=== PATIENT | female | born 1940 | race Caucasian/White ===

== ENCOUNTER → 2017-08-24 18:09 | Outpatient (CLI) | payer MEDICARE, SELFPAY | PROVIDERS: Family Provider Family Medicine; Visit Provider Urology | DX: R82.99 Other abnormal findings in urine (principal) | CPT/HCPCS: 87077; 87086; 87088; 87186 ==

== ENCOUNTER 2017-09-25 10:58 | Day surgery (SDC) | payer MEDICARE, SELFPAY ==
[2017-09-25 11:26] VITALS: BP 152/65; PULSE 74; RESP 16; TEMP 36.4; O2SAT 95; BMI 27.2
[2017-09-25] MEDS: Cefazolin 2 GM in 0.9% Normal Saline 100 ML IV (12:26)
[2017-09-25] MEDS: Lidocaine Jelly 2% 20 ML Syringe (URO-JET) 20 APPLIC (12:38)
--- NOTE | 2017-09-25 12:55 | PCM.DC.URO ---
Discharge Diet: Light diet - advance as tolerated Discharge Activity: Return to Normal Activity Call your doctor if your incision/area has: Continuous Slow Oozing Call your doctor if you observe: Fever of 101 or Higher Allergies/Adverse Reactions: Allergies lisinopril Allergy (Verified 09/18/17 10:10) Hives Sulfa (Sulfonamide Antibiotics) Allergy (Verified 09/18/17 10:10) Hives Medications to take at Discharge Acetaminophen [Tylenol Arthritis] 1,200 mg PO TID 05/01/16 Aspirin [Aspirin, Baby] 81 mg PO DAILY 05/01/16 Atorvastatin Calcium [Lipitor] 10 mg PO QHS 05/01/16 Clopidogrel Bisulfate [Plavix] 75 mg PO DAILY 05/01/16 amiodarone 200 mg tablet 200 mg PO QDAY 05/25/17 metoprolol tartrate 25 mg tablet 25 mg PO BID 05/25/17 Primary Care Physician: Brett Flores DO [Primary Care Provider] - Please Follow Up With: Simone Garcia MD When: call for an appt ion 6 weeks
--- NOTE | 2017-09-25 12:57 | PCM.OPRPT ---
Report of Operation Date of Procedure: 09/25/17 Pre-Operative Diagnosis: History of bilateral reflux seen hydronephrosis Post-Operative Diagnosis: Same Surgery/Procedure Performed:: Cystoscopy and bilateral retrograde pyelograms and bilateral stent changes Description of Surgical Findings:: 76-year-old female who has a history of hydronephrosis of both the left kidney and the right kidney her creatinine is has been relatively stable at the keep the walk keep watching it. She has had recurrent infections and also in the past had severe bladder and kidney infections for refluxing hydronephrosis she has a significant cystocele. I have offered her a referral for repair but she is refused referral and may consider having her see a local delivery associate see if this will help. 76-year-old female taken to the operating room after smooth induction of general anesthesia she was placed in dorsal lithotomy position the urethra and vaginal area were prepped and draped in usual sterile fashion. Went into the bladder with a 21 Sierra Leonean rigid cystourethroscope grabbed the existing stent from the right side pulled out the meatus advanced the wire up the stent over the wire I then advanced a Pollack catheter performed a retrograde pyelogram which demonstrated a dilated kidney. I then advanced a new stent over the wire into the kidney and then once a stent was in good position I cut the string and position the stent in good position. I then went to the left side grabbed the existing stent on the left side pulled out the meatus advanced a wire up the stent put a Pollack catheter over the wire up into the kidney and the left side contrast into the kidney which demonstrated hydronephrosis and then I advanced a stent up on the left side once stent was in good position pulled the wire and then position the stent between the bladder and the kidney there was a stent was positioned to remove the wire string off the stent. After performing bilateral retrogrades bilateral stent placement that I drain the bladder patient anesthetic was reversed taken back to PACU in good condition. She will see me back in about 6 weeks in the office given an appointment. Type of Anesthesia:: Local MAC Drains: stents - Admit VTE Documentation VTE Present on Admission: No VTE Mechan Device Prophylaxis: SCD's VTE Pharm Prophylaxis ordered?: No Reason prophylaxis not ordered:: Treatment Not Indicated
--- NOTE | 2017-09-25 13:00 | OP.PCM_ITS ---
Report of Operation Date of Procedure: 09/25/17 Pre-Operative Diagnosis: History of bilateral reflux seen hydronephrosis Post-Operative Diagnosis: Same Surgery/Procedure Performed:: Cystoscopy and bilateral retrograde pyelograms and bilateral stent changes Description of Surgical Findings:: 76-year-old female who has a history of hydronephrosis of both the left kidney and the right kidney her creatinine is has been relatively stable at the keep the walk keep watching it. She has had recurrent infections and also in the past had severe bladder and kidney infections for refluxing hydronephrosis she has a significant cystocele. I have offered her a referral for repair but she is refused referral and may consider having her see a local setter induction heating equipment see if this will help. 76-year-old female taken to the operating room after smooth induction of general anesthesia she was placed in dorsal lithotomy position the urethra and vaginal area were prepped and draped in usual sterile fashion. Went into the bladder with a 21 Swiss rigid cystourethroscope grabbed the existing stent from the right side pulled out the meatus advanced the wire up the stent over the wire I then advanced a Pollack catheter performed a retrograde pyelogram which demonstrated a dilated kidney. I then advanced a new stent over the wire into the kidney and then once a stent was in good position I cut the string and position the stent in good position. I then went to the left side grabbed the existing stent on the left side pulled out the meatus advanced a wire up the stent put a Pollack catheter over the wire up into the kidney and the left side contrast into the kidney which demonstrated hydronephrosis and then I advanced a stent up on the left side once stent was in good position pulled the wire and then position the stent between the bladder and the kidney there was a stent was positioned to remove the wire string off the stent. After performing bilateral retrogrades bilateral stent placement that I drain the bladder patient anesthetic was reversed taken back to PACU in good condition. She will see me back in about 6 weeks in the office given an appointment. Type of Anesthesia:: Local MAC Drains: stents - Admit VTE Documentation VTE Present on Admission: No VTE Mechan Device Prophylaxis: SCD's VTE Pharm Prophylaxis ordered?: No Reason prophylaxis not ordered:: Treatment Not Indicated
[2017-09-25 13:02] VITALS: BP 152/65; BP 158/79; PULSE 64; RESP 18; TEMP 36.2; O2SAT 100
[2017-09-25 13:05] VITALS: BP 152/65; BP 160/69; PULSE 62; RESP 18; O2SAT 97
[2017-09-25 13:10] VITALS: BP 152/65; BP 156/73; PULSE 60; RESP 18; O2SAT 96
[2017-09-25 13:15] VITALS: BP 152/65; BP 152/74; PULSE 58; RESP 18; TEMP 36.2; O2SAT 97
[2017-09-25 14:34] VITALS: BP 132/83; BP 152/65; PULSE 62; RESP 18; O2SAT 99
== END 2017-09-25 15:06 | disposition home or self-care (01) ==
LOC: SDC 10:58 → AC 11:00
PROVIDERS: Family Provider Family Medicine; PCP Family Medicine; Visit Provider Urology
PROC: (CPT 52005; principal; 2017-09-25 12:30)
DX: N13.39 Other hydronephrosis (principal); I25.10 Atherosclerotic heart disease of native coronary artery without angina pectoris; M19.90 Unspecified osteoarthritis, unspecified site; K21.9 Gastro-esophageal reflux disease without esophagitis; E78.00 Pure hypercholesterolemia, unspecified; I11.9 Hypertensive heart disease without heart failure; N19 Unspecified kidney failure; Z95.5 Presence of coronary angioplasty implant and graft; Z86.2 Personal history of diseases of the blood and blood-forming organs and certain disorders involving the immune mechanism; Z87.440 Personal history of urinary (tract) infections; Z79.82 Long term (current) use of aspirin; Z79.02 Long term (current) use of antithrombotics/antiplatelets; Z79.899 Other long term (current) drug therapy
CPT/HCPCS: 52005; 52332; 76000; J7120; C1769; C2617; J2405

== ENCOUNTER → 2017-11-05 09:14 | Outpatient (CLI) | payer MEDICARE, SELFPAY ==
[2017-11-05 09:35] LABS: Hematocrit 31.7 % (37-47); Hemoglobin 9.9 g/dl (12.0-15.0); Mean Corp Hgb Conc 31.2 g/gl (32-36); Mean Corpuscular Hgb 27.8 pg (27.0-32.0); Mean Platelet Vol. 8.4 fl (6.2-12.0); Platelet Count 374 K/mm3 (150-450); RBC Distribution Width CV 17.9 % (11.6-14.6); RBC Distribution Width SD 57.2 fl (35.1-43.9); Red Blood Count 3.56 M/mm3 (4.2-5.4); White Blood Count 10.4 K/mm3 (4.4-11.0)
[2017-11-05 09:36] LABS: Scan Indicated on CBC? Y/N NO
[2017-11-05 10:14] LABS: Anion Gap 8 (5-15); BUN 27 mg/dL (7-18); BUN/Creat Ratio 11.7 RATIO (10-20); Calcium,Total 9.9 mg/dL (8.5-10.1); Chloride 112 mmol/L (98-107); Creatinine, Serum 2.31 mg/dL (0.55-1.02); EST Glomerular Filtration Rate 22 mL/min (>60); Est Glom Filt Rate - Afr Amer 26 mL/min (>60); Glucose 92 mg/dL (74-106); Potassium 4.1 mmol/L (3.5-5.1); Sodium Level 140 mmol/L (136-145)
== END ==
PROVIDERS: Family Provider Family Medicine; PCP Family Medicine; Visit Provider Urology
DX: N13.30 Unspecified hydronephrosis (principal)
CPT/HCPCS: 36415; 80048; 85027

== ENCOUNTER → 2017-12-31 09:53 | Outpatient (CLI) | payer MEDICARE, SELFPAY ==
[2017-12-31 11:51] LABS: AST(SGOT) 10 U/L (15-37); Alanine Aminotransfer ALT/SGPT 12 U/L (13-56); Albumin, Serum 2.8 g/dL (3.2-5.0); Alkaline Phosphatase 119 U/L (45-117); Bilirubin, Direct 0.15 mg/dL (0.00-0.30); Cholesterol 117 mg/dL (200); Globulin 3.6 g/dL (2.2-4.2); High Density Lipoprotein 48 mg/dL; Protein, Total 6.4 g/dL (6.4-8.2); T4 Total, Thyroxin 8.9 ug/dL (4.8-13.9); Thyroid Stim Hormone (TSH) 9.22 uIU/mL (0.358-3.74); Triglycerides 116 mg/dL; Very Low Density Lipoprotein 23 mg/dL (5-40)
--- NOTE | 2017-12-31 12:28 | PFTCOMP ---
COMPLETE PULMONARY FUNCTION TEST INTERPRETATION Brief HPI: Patient is a 77 year old female, currently under the care of Sultana Lee, who presents to [facility] for complete pulmonary function tests secondary to diagnosis of high-risk med use. Respiratory therapist reports good effort and reproducible results. Interpretation: Forced expiration spirometry shows no large airways obstructive ventilatory defect with an FEV1 of 97% predicted. There is no significant bronchodilator response by ATS criteria. Spirograms are of good quality and plateau slowly, indicating slowly emptying areas of the lungs. The respiratory flow volume loop shows decreased expiratory flow rates at high lung volumes consistent with small airways obstruction. Lung volumes by body plethysmography show a normal total lung capacity at 4.53 L, 99% predicted. All other lung volumes are within normal limits. Diffusion capacity by carbon monoxide is decreased at 44% predicted. The airway resistance is elevated. No previous pulmonary function tests were available for review. Impression: Isolated reduction diffusing capacity consistent with possible pulmonary vascular disorder. Would recommend serial PFTs to monitor DLCO if high risk meds are continued.
--- NOTE | 2017-12-31 12:31 | PFTCOMP_ITS ---
COMPLETE PULMONARY FUNCTION TEST INTERPRETATION Brief HPI: Patient is a 77 year old female, currently under the care of Sultana Lee, who presents to [facility] for complete pulmonary function tests secondary to diagnosis of high-risk med use. Respiratory therapist reports good effort and reproducible results. Interpretation: Forced expiration spirometry shows no large airways obstructive ventilatory defect with an FEV1 of 97% predicted. There is no significant bronchodilator response by ATS criteria. Spirograms are of good quality and plateau slowly, indicating slowly emptying areas of the lungs. The respiratory flow volume loop shows decreased expiratory flow rates at high lung volumes consistent with small airways obstruction. Lung volumes by body plethysmography show a normal total lung capacity at 4.53 L , 99% predicted. All other lung volumes are within normal limits. Diffusion capacity by carbon monoxide is decreased at 44% predicted. The airway resistance is elevated. No previous pulmonary function tests were available for review. Impression: Isolated reduction diffusing capacity consistent with possible pulmonary vascular disorder. Would recommend serial PFTs to monitor DLCO if high risk meds are continued.
== END ==
PROVIDERS: Family Provider Family Medicine; PCP Family Medicine; Visit Provider Physician Assistant Medical
DX: I10 Essential (primary) hypertension (principal); I25.10 Atherosclerotic heart disease of native coronary artery without angina pectoris; E78.5 Hyperlipidemia, unspecified; I48.91 Unspecified atrial fibrillation
CPT/HCPCS: 36415; 80061; 80076; 84436; 84443; 94060; 94726; 94729

== ENCOUNTER → 2018-01-29 10:28 | Outpatient (CLI) | payer MEDICARE, SELFPAY ==
[2018-01-29 11:57] LABS: T4 Total, Thyroxin 11.8 ug/dL (4.8-13.9); Thyroid Stim Hormone (TSH) 2.07 uIU/mL (0.358-3.74)
== END ==
PROVIDERS: Physician Assistant Medical; Family Provider Family Medicine; PCP Family Medicine; Visit Provider Urology
DX: E03.9 Hypothyroidism, unspecified (principal); N39.0 Urinary tract infection, site not specified
CPT/HCPCS: 36415; 84436; 84443; 87077; 87086; 87088; 87186

== ENCOUNTER 2018-02-10 09:56 | Day surgery (SDC) | payer MEDICARE, SELFPAY ==
[2018-02-10] VITALS (7 sets, daily range): BP systolic 144–168; BP diastolic 64–77; PULSE 48–60; RESP 14–18; TEMP 35.9–36.7; O2SAT 95–98; BMI 25.2
[2018-02-10] MEDS: Lubricating Jelly 60 GM Tube 30 GM TOPICAL (11:22)
[2018-02-10] MEDS: Cefazolin 2 GM in 0.9% Normal Saline 100 ML IV (11:46)
--- NOTE | 2018-02-10 12:30 | PCM.OPRPT ---
Report of Operation Date of Procedure: 02/10/18 Pre-Operative Diagnosis: Bilateral hydronephrosis Post-Operative Diagnosis: Same and chronic renal insufficiency Surgery/Procedure Performed:: Cystoscopy bilateral retrograde, bilateral stent placement and left ureteroscopy Description of Surgical Findings:: 77-year-old female who has chronic bilateral hydronephrosis and chronic renal sufficiency of her condition was stents the stent at the be changed every few months she is now due for stent change. , the etiology of her hydronephrosis is quite unclear but she has bilateral hydro-chronic renal sufficiency rather continue with management Procedure note, 77-year-old female taken back to the operating room at the smooth induction of general anesthesia she is placed supine on the table, the urethra and vaginal area were prepped and draped in usual sterile fashion, went into the bladder with a 21 Slovak rigid cystourethroscope grabbed the existing stents there coil around each other's of the pole both stents out try to put a wire of the stents with her to encrusted so pulled the stent out and then went back in went to the left side first and try to put a Pollack catheter up the ureteral orifice but it would not go so into the right side and identified the right side orifice cannulated with a ureteral catheter and a Glidewire advanced as of the kidney performed a retrograde Polygram demonstrated hydronephrotic kidney I then advanced a stent on that side and a 6 Slovak by 26 cm stent pulled the string and the wire and the stent coiled in the kidney and bladder good position and then went to the left side and left side was quite difficult and not sure if try to put the initial catheter up I created a false passage so I tried a wire again after some manipulation was able to get up the ureter but still was was not convinced about its location and whether and created a false passage so I went next to the wire with the ureteroscope SlimLine rigid could get into the ureter initially so then I pulled back out and then eventually went over the wire with a SlimLine ureteroscope and then when I was in the ureter then I found a way to get into the ureter over the wire pulled the wire out and then repeat put the wire back in this limb a ureteroscope to make sure that I was in the good position on that side once the wire was in good position make sure there was not tunneled through a submucosal tunnel I then advanced the what wire up further performed a retrograde pyelogram and then advanced a stent over the left side stent: The kidney bladder good position I drain the bladder patient anesthetic was reversed taken back to PACU in good condition plan to see her back in about 6 weeks for checkup on the changes stent about every 3 months. Type of Anesthesia:: General Drains: Stent bilateral 6 Slovak by 26 cm - Admit VTE Documentation VTE Present on Admission: No VTE Mechan Device Prophylaxis: SCD's VTE Pharm Prophylaxis ordered?: No
--- NOTE | 2018-02-10 14:02 | PCM.DC.URO ---
Discharge Diet: No Restrictions Discharge Activity: Return to Normal Activity, May Not Drive - for 2 days. Additional Activity Instructions:: f you have a catheter, remove on ___. If you have any problems after catheter is removed, call [phone] and ask for your doctor to be paged. Please be aware that pain medications may cause nausea. You should typically eat light foods as you take your pain medication. Pain medication may cause constipation, if this is a problem for you, please discuss with your doctor. Allergies/Adverse Reactions: Allergies lisinopril Allergy (Verified 02/03/18 09:30) Hives Sulfa (Sulfonamide Antibiotics) Allergy (Verified 02/03/18 09:30) Hives Medications to take at Discharge Acetaminophen [Tylenol Arthritis] 1,200 mg PO TID 05/01/16 Aspirin [Aspirin, Baby] 81 mg PO DAILY 05/01/16 metoprolol tartrate 25 mg tablet 25 mg PO BID #180 tab 11/26/17 atorvastatin 10 mg tablet 10 mg PO QHS #90 tab 12/21/17 clopidogrel 75 mg tablet 75 mg PO DAILY #90 tab 12/21/17 amiodarone 200 mg tablet 100 mg PO QDAY tab 01/01/18 Levothyroxine [Synthroid] 75 mcg PO DAILY 02/03/18 Primary Care Physician: Brett Flores DO [Primary Care Provider] - Test Results: Test results from this visit will be discussed in further detail at your follow-up appointment, if applicable. Please Follow Up With: Simone Garcia MD When: please call to make an appointment.
== END 2018-02-10 14:23 | disposition home or self-care (01) ==
LOC: SDC 09:58 → AC 09:59
PROVIDERS: Family Provider Family Medicine; PCP Family Medicine; Visit Provider Urology
PROC: (CPT 52332; principal; 2018-02-10 11:45)
PROC: 0TJ98ZZ Inspection of Ureter, Via Natural or Artificial Opening Endoscopic (ICD-10-PCS; CPT 52351; 2018-02-10 11:45)
DX: N13.30 Unspecified hydronephrosis (principal); I13.10 Hypertensive heart and chronic kidney disease without heart failure, with stage 1 through stage 4 chronic kidney disease, or unspecified chronic kidney disease; N18.9 Chronic kidney disease, unspecified; E78.00 Pure hypercholesterolemia, unspecified; M19.90 Unspecified osteoarthritis, unspecified site; Z85.42 Personal history of malignant neoplasm of other parts of uterus; K21.9 Gastro-esophageal reflux disease without esophagitis; Z86.2 Personal history of diseases of the blood and blood-forming organs and certain disorders involving the immune mechanism; Z87.440 Personal history of urinary (tract) infections; Z79.82 Long term (current) use of aspirin; Z79.02 Long term (current) use of antithrombotics/antiplatelets; Z79.899 Other long term (current) drug therapy
CPT/HCPCS: 52005; 52282; 76000; J7120; C1769; C2617; J2405

== ENCOUNTER → 2018-02-22 13:26 | Outpatient (CLI) | payer MEDICARE, SELFPAY ==
[2018-02-22 15:35] LABS: Absolute Lymphocyte Count 1.22 X10^3/ul (0.83-4.51); Absolute Neutrophil Count 5.4 X10^3/uL (2.0-7.7); Basophil# 0.02 X10^3/uL; Basophil% 0.3 % (0-1); Eosinophils% 2.6 % (0-5); Hematocrit 29.3 % (37-47); Hemoglobin 8.8 g/dl (12.0-15.0); Lymphocyte # 1.22 X10^3/ul (4.0); Lymphocyte % 15.7 % (19-41); Mean Corpuscular Hgb 26.4 pg (27.0-32.0); Mean Platelet Vol. 9.7 fl (6.2-12.0); Monocyte# 0.95 X10^3/uL; Monocyte% 12.2 % (0-10); Neutrophil # 5.38 X10^3/uL (2.7-7.7); Neutrophil % 68.9 % (47-70); Platelet Count 275 K/mm3 (150-450); RBC Distribution Width CV 17.6 % (11.6-14.6); RBC Distribution Width SD 56.1 fl (35.1-43.9); RET-HE 21.1 pg (30-35); Red Blood Count 3.33 M/mm3 (4.2-5.4); Reticulocyte Count 1.08 % (0.5-1.5); White Blood Count 7.8 K/mm3 (4.4-11.0)
[2018-02-22 15:36] LABS: POSITIVE COUNT NO; POSITIVE DIFFERENTIAL NO; POSITIVE MORPHOLOGY NO
[2018-02-22 15:42] LABS: Immature Platelet Fraction 1.1 % (1.0-7.9)
[2018-02-22 15:50] LABS: Anion Gap 9 (5-15); BUN 26 mg/dL (7-18); BUN/Creat Ratio 10.7 RATIO (10-20); Calcium,Total 10.1 mg/dL (8.5-10.1); Chloride 110 mmol/L (98-107); Creatinine, Serum 2.42 mg/dL (0.55-1.02); EST Glomerular Filtration Rate 21 mL/min (>60); Est Glom Filt Rate - Afr Amer 25 mL/min (>60); Ferritin 120 ng/mL (8-252); Glucose 93 mg/dL (74-106); Iron 16 ug/dL (50-170); Potassium 3.7 mmol/L (3.5-5.1); Sodium Level 140 mmol/L (136-145)
[2018-02-22 15:54] LABS: Vitamin B12 651 pg/mL (211-911)
== END ==
PROVIDERS: Family Provider Family Medicine; PCP Family Medicine; Visit Provider Family Medicine
DX: E03.2 Hypothyroidism due to medicaments and other exogenous substances (principal); N13.30 Unspecified hydronephrosis; N39.0 Urinary tract infection, site not specified; I48.0 Paroxysmal atrial fibrillation; N18.4 Chronic kidney disease, stage 4 (severe); D64.9 Anemia, unspecified
CPT/HCPCS: 36415; 80048; 82607; 82728; 83540; 85025; 85045; 87086; 87088; 87186

== ENCOUNTER → 2018-03-25 18:15 | Outpatient (CLI) | payer MEDICARE, SELFPAY | PROVIDERS: Family Provider Family Medicine; PCP Family Medicine; Referring Provider Urology; Visit Provider Urology | DX: N39.0 Urinary tract infection, site not specified (principal) | CPT/HCPCS: 87086; 87088; 87186 ==

== ENCOUNTER → 2018-05-26 09:40 | Outpatient (CLI) | payer MEDICARE, SELFPAY ==
[2018-05-26 12:51] LABS: Absolute Lymphocyte Count 1.97 X10^3/ul (0.83-4.51); Absolute Neutrophil Count 5.3 X10^3/uL (2.0-7.7); Basophil# 0.03 X10^3/uL; Basophil% 0.4 % (0-1); Eosinophil# 0.18 X10^3/uL; Eosinophils% 2.1 % (0-5); Hematocrit 30.4 % (37-47); Hemoglobin 9.1 g/dl (12.0-15.0); Lymphocyte # 1.97 X10^3/ul (4.0); Lymphocyte % 23.4 % (19-41); Mean Corp Hgb Conc 29.9 g/gl (32-36); Mean Corpuscular Hgb 27.1 pg (27.0-32.0); Mean Corpuscular Volume 90.5 fL (81-99); Mean Platelet Vol. 8.6 fl (6.2-12.0); Monocyte# 0.96 X10^3/uL; Monocyte% 11.4 % (0-10); Neutrophil # 5.27 X10^3/uL (2.7-7.7); Neutrophil % 62.5 % (47-70); POSITIVE COUNT NO; POSITIVE DIFFERENTIAL NO; POSITIVE MORPHOLOGY NO; Platelet Count 310 K/mm3 (150-450); RBC Distribution Width SD 56.6 fl (35.1-43.9); Red Blood Count 3.36 M/mm3 (4.2-5.4); White Blood Count 8.4 K/mm3 (4.4-11.0)
[2018-05-26 12:55] LABS: Anion Gap 10 (5-15); BUN 30 mg/dL (7-18); BUN/Creat Ratio 11.9 RATIO (10-20); Calcium,Total 9.9 mg/dL (8.5-10.1); Chloride 109 mmol/L (98-107); Creatinine, Serum 2.53 mg/dL (0.55-1.02); EST Glomerular Filtration Rate 20 mL/min (>60); Est Glom Filt Rate - Afr Amer 24 mL/min (>60); Ferritin 47 ng/mL (8-252); Glucose 81 mg/dL (74-106); Iron 21 ug/dL (50-170); Potassium 4.3 mmol/L (3.5-5.1); Sodium Level 141 mmol/L (136-145)
[2018-05-26 14:20] LABS: Mucous, Urine 0 SEEN /hpf (<or=2+); Squamous Epithelial Cells - UA 0 SEEN /hpf (5-10)
[2018-05-26 15:49] LABS: Color, Urine Straw (Yellow); Glucose, Dipstick Normal (Normal); Ketone-Dipstick Negative (Negative); Nitrite-Dipstick Negative (Negative); Occult Blood-Urine 250 /ul (Negative); Protein-Dipstick 100 mg/dl (Negative); Urine Bilirubin Dipstick Negative (Negative); Urine Clarity Sl. Cloudy (Clear); Urine Urobilinogen Normal (Normal); Urine pH 6.5 (5.0 - 8.0)
[2018-05-26 16:07] LABS: Bacteria 1+ /hpf (None Seen); Leukocyte Esterase-Dipstick 500 /ul (Negative); Red Blood Cells-Urine 0 SEEN /hpf (0-5); White Blood Cells >100 SEEN /hpf (0-5)
--- OUTSIDE RECORDS SUMMARY | 2018-08-27 12:43 | XMS RPT_ITS ---
:1940 Author Organization [place] Support Name Relationship Address Phone THIERRY KATZ Unavailable Unavailable + [place] [address] R Unavailable Unavailable Unavailable CHRISTINECELETHIERRY PATEL Unavailable . + [place] [address] R Unavailable Unavailable Unavailable CHRISTINECELEJORGETHIERRY Unavailable . + [place] [address] R Unavailable Unavailable Unavailable GIANNA THIERRY Unavailable Unavailable + [place] [address] R Unavailable Unavailable Unavailable ELLEJORGETHIERRY Unavailable Unavailable + [place] [address] R Unavailable Unavailable Unavailable GIANNA THIERRY Unavailable Unavailable + [place] [address] R Unavailable Unavailable Unavailable GIANNA THIERRY Unavailable Unavailable + [place] [address] R Unavailable Unavailable Unavailable THIERRY KATZ Unavailable Unavailable + [place] [address] R Unavailable Unavailable Unavailable GIANNA THIERRY Unavailable [address] + [place] [address] R Unavailable Unavailable Unavailable GIANNA THIERRY Unavailable [address] + [place] [address] R Unavailable Unavailable Unavailable GIANNA THIERRY Unavailable [address] + [place] [address] R Unavailable Unavailable Unavailable CHRISTINECELEJORGE THIERRY Unavailable [address] + [place] [address] R Unavailable Unavailable Unavailable CHRISTINECELEJORGETHIERRY Unavailable [address] + [place] [address] R Unavailable Unavailable Unavailable GIANNATHIERRY Unavailable [address] + [place] [address] R Unavailable Unavailable Unavailable THIERRY KATZ Unavailable [address] + [place] [address] R Unavailable Unavailable Unavailable THIERRY KATZ Unavailable [address] + [place] [address] R Unavailable Unavailable Unavailable THIERRY KATZ Unavailable [address] + [place] [address] R Unavailable Unavailable Unavailable Care Team Providers Name Role Phone Lauren Smith Attending Unavailable Mark, Brett Primary Care Unavailable Lauren Smith Referring Unavailable JoseSimone Attending Unavailable Mark, Brett Primary Care Unavailable JoseSimone Attending Unavailable Mark, Brett Primary Care Unavailable Jose, Simone Marte Referring Unavailable Faye Wayne Attending Unavailable JoseSimone Attending Unavailable Jose, Simone Marte Referring Unavailable Mark, Brett Primary Care Unavailable Cheryl Armenta Attending Unavailable Sultana Lee Attending Unavailable Mark, Brett Referring Unavailable Mark, Brett Primary Care Unavailable Elliott Mullins Attending Unavailable Mark, Brett Referring Unavailable Mark, Brett Primary Care Unavailable Sultana Lee Attending Unavailable Mark, Brett Primary Care Unavailable Sultana Lee Referring Unavailable Carlos Patel Attending Unavailable Sultana Lee Referring Unavailable JoseSimone Attending Unavailable Jose, Simone Marte Referring Unavailable Amrk, Brett Primary Care Unavailable JoseSimone Attending Unavailable Jose, Lakhwinder Referring Unavailable Mark, Brett Primary Care Unavailable Mark, Brett Attending Unavailable Mark, Brett Primary Care Unavailable Mark, Brett Attending Unavailable Mark, Brett Primary Care Unavailable Mark, Brett Attending Unavailable Mark, Brett Primary Care Unavailable Jose, Simone Marte Attending Unavailable Mark, Brett Primary Care Unavailable Jose, Lakhwinder Referring Unavailable Jermaine Palencia Attending Unavailable Mark, Brett Referring Unavailable PROBLEMS PROBLEMS DATE TYPE CONDITION / CODE ATTENDING STATUS SOURCE 06/18/2018 Unknown R82.998 - Other Lauren Smith abnormal findings in Community urine / Hospital R82.998(ICD-10) Repository 05/26/2018 Unknown N18.4 - Chronic Brett Flores Active [facility] kidney disease, stage Community 4 (severe) / Hospital N18.4(ICD-10) Repository 05/26/2018 Unknown D64.9 - Anemia, Brett Flores Active [facility] unspecified / [facility] D64.9(ICD-10) Hospital Repository 04/12/2018 Unknown M17.12 - Unilateral Jermaine Palencia Active [facility] primary Community osteoarthritis, left Hospital knee / M17.12(ICD-10) Repository 03/26/2018 Unknown N39.0 - Urinary tract JoseSimone alvarez Active [facility] infection, site not [facility] specified / Hospital N39.0(ICD-10) Repository 02/22/2018 Unknown 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 Active [facility] 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 Repository / E03.2(ICD-10) 02/22/2018 Unknown N13.30 - Unspecified Brett Flores Active [facility] hydronephrosis / [facility] N13.30(ICD-10) Hospital Repository 02/22/2018 Unknown I48.0 - Paroxysmal Brett Flores Active [facility] atrial fibrillation / [facility] I48.0(ICD-10) Hospital Repository 12/31/2017 Unknown I10 - Essential Lee, Active [facility] (primary) [facility] hypertension / Hospital I10(ICD-10) Repository 12/31/2017 Unknown I25.10 - Lee, Active [facility] Atherosclerotic heart [facility] disease of [facility] coronary artery Repository without angina pectoris / I25.10(ICD-10) 12/31/2017 Unknown E78.5 - Lee, Active [facility] Hyperlipidemia, [facility] unspecified / Hospital E78.5(ICD-10) Repository 12/31/2017 Unknown I48.91 - Unspecified Lee, Active [facility] atrial fibrillation / [facility] I48.91(ICD-10) Hospital Repository 01/14/2018 Unknown Z79.899 - Other long JorgeCarlos garay Active [facility] term (current) drug Community therapy / Hospital Z79.899(ICD-10) Repository 08/25/2017 Unknown R82.99 - Other JoseSimone alvarez Active [facility] abnormal findings in [facility] / Hospital R82.99(ICD-10) Repository PROCEDURES PROCEDURES No Procedure Records FoundRESULTS RESULTS Observed: 06/17/2018 Status: F Source: [place] CULTURE, URINE 10:45 AM [facility] Urine Culture ORGANISM 1: Presumptive E. coli Paradise Count >100,000 Presumptive E. coli: REACTION Amoxacillin/Clavulanic Acid $ <=2 S Ampicillin $ 4 S Ampicillin/Sulbactam $ <=2 S Cefazolin $ <=4 S Cefepime $ <=1 S Ceftriaxone $ <=1 S Ciprofloxacin $ <=0.25 S ESBL - Ertapenim $$$ <=0.5 S Gentamicin $ <=1 S Imipenem *NF <=0.25 S Levofloxacin $ <=0.12 S Nitrofurantoin $ <=16 S Piperacillin/Tazobactam $$ <=4 S Tobramycin $ <=1 S Trimethoprim/Sulfametho $ <=20 S (NF) indicates non-formulary drug at [facility]. Approval by Infectious Disease Specialist required before non-formulary drugs may be ordered and/or dispensed. Performed By: #### M100.0650 #### [facility] [address] [place], [place], [address] CBC W/DIFF, AUTOMATED Collected: 05/26/2018 Status: F Source: [place] 9:42 AM [facility] TYPE CODE TESTS RESULT OUT OF RANGE REFERENCE UNITS LAB L100.1000 4.4-11.0 K/mm3 Normal WBC 8.4 LAB L100.1200 4.2-5.4 M/mm3 Low RBC 3.36 LAB L100.1300 12.0-15.0 g/dl Low HGB 9.1 LAB L100.1400 37-47 % Low HCT 30.4 LAB L100.1500 81-99 fL Normal MCV 90.5 LAB L100.1600 27.0-32.0 pg Normal MCH 27.1 LAB L100.1700 32-36 g/gl Low MCHC 29.9 LAB L100.1810 11.6-14.6 % High RDW CV 17.0 LAB L100.1820 35.1-43.9 fl High RDW SD 56.6 LAB L100.1900 150-450 K/mm3 Normal PLT 310 LAB L100.2000 6.2-12.0 fl Normal MPV 8.6 LAB L100.2100 47-70 % Normal NEUT% 62.5 LAB L100.2200 19-41 % Normal LY% 23.4 LAB L100.2300 0-10 % High MONO% 11.4 LAB L100.2400 0-5 % Normal EO% 2.1 LAB L100.2500 0-1 % Normal BASO% 0.4 LAB L100.2550 0.0-0.9 % Normal IM GRAN % 0.200 Result Comment: IG% - Immature Granulocytes (promyelocytes, myelocytes and metamyelocytes) > 1% indicates that a LEFT SHIFT is Present. LAB L100.2620 2.0-7.7 X10 3/uL Normal Absolute Neut 5.3 LAB L100.2720 0.83-4.51 X10 3/ul Normal Absolute Lymph 1.97 Performed By: #### L100.0100 #### [facility] [address] [place], [place], [address] BASIC METABOLIC Collected: 05/26/2018 Status: F Source: [place] PROFILE (BMP) 9:42 AM [facility] TYPE CODE TESTS RESULT OUT OF RANGE REFERENCE UNITS LAB L501.0100 74-106 mg/dL Normal GLU 81 Result Comment: Please note revised GLUCOSE reference range effective 2017. LAB L501.1000 7-18 mg/dL High BUN 30 LAB L501.1100 0.55-1.02 mg/dL High CREAT,SERUM 2.53 Result Comment: The validity of the calculated GFR AND GFRAA in patients over 70 years has not been determined. Clinical correlation is essential. LAB L501.1110 >60 mL/min Low EST GFR 20 Result Comment: Non- GFR Calc LAB L501.1115 >60 mL/min Low EST GFR - AA 24 Result Comment: GFR Calc LAB L501.1300 10-20 RATIO Normal BUN/CRE 11.9 LAB L501.2200 8.5-10.1 mg/dL CA Normal 9.9 LAB L501.5300 136-145 mmol/L NA Normal 141 LAB L501.5600 3.5-5.1 mmol/L K Normal 4.3 LAB L501.5900 98-107 mmol/L High CL 109 LAB L501.6100 21.0-32.0 mmol/L Normal CO2 22.0 LAB L501.6200 5-15 Normal GAP 10 Performed By: #### L500.2500, L503.6150, L503.6550 #### [facility] [address] [place], [address] IRON Collected: 05/26/2018 Status: F Source: [place] 9:42 AM [facility] TYPE CODE TESTS RESULT OUT OF RANGE REFERENCE UNITS LAB L503.6150 50-170 ug/dL Low IRON 21 Performed By: #### L500.2500, L503.6150, L503.6550 #### [facility] [address] [place], [address] FERRITIN Collected: 05/26/2018 Status: F Source: [place] 9:42 AM [facility] TYPE CODE TESTS RESULT OUT OF RANGE REFERENCE UNITS LAB L503.6550 8-252 ng/mL Normal FERRITIN 47 Performed By: #### L500.2500, L503.6150, L503.6550 #### [facility] [address] [place], [address] URINALYSIS, COMPLETE Collected: 05/26/2018 Status: C Source: [place] 9:42 AM [facility] Order Comment: How was Urine Obtained? CLEAN CATCH TYPE CODE TESTS RESULT OUT OF RANGE REFERENCE UNITS LAB L400.3000 Yellow COLOR Normal Straw LAB L400.3050 Clear Normal CLARITY Sl. Cloudy LAB L400.3200 Normal mg/dl Normal GLUCOSE, UR Normal LAB L400.3300 Negative mg/dL Normal BILIRUBIN URINE Negative LAB L400.3400 Negative mg/dl Normal KETONE UR Negative LAB L400.3465 1.002-1.030 Normal SP.GR. DIPSTX 1.010 LAB L400.3550 5.0 - 8.0 pH UR Normal 6.5 LAB L400.3600 Negative mg/dl High PROT DIPSTX 100 LAB L400.3700 Normal mg/dl Normal UROBILI Normal LAB L400.3750 Negative Normal NITRITE UR Negative LAB L400.3780 Negative /ul High OCCULT BLOOD-UR 250 LAB L400.3800 Negative /ul High LEUK ESTERASE 500 Result Comment: Microscopic field is filled. Other elements may be obscured. AMENDED REPORT 05/26/18 1606 LEUK ESTERASE previously reported as: 500 H /ul LAB L400.4050 0-5 /hpf Normal WBC >100 SEEN LAB L400.4100 0-5 /hpf Normal 0 SEEN RBC-UA Result Comment: Microscopic field is filled. Other elements may be obscured. LAB L400.4150 5-10 /hpf Normal SQUAM EPI 0 SEEN LAB L400.4300 None Seen /hpf Normal BACTERIA 1+ LAB L400.4350 <or=2+ /hpf Normal MUCUS, URINE 0 SEEN Performed By: #### L400.0001 #### [facility] [address] [facility] [address] [place], [place], [id number] Observed: 05/26/2018 Status: F Source: [place] CULTURE, URINE 9:42 AM [facility] Urine Culture ORGANISM 1: Presumptive E. coli Paradise Count >100,000 Presumptive E. coli: REACTION Amoxacillin/Clavulanic Acid $ <=2 S Ampicillin $ 4 S Ampicillin/Sulbactam $ <=2 S Cefazolin $ <=4 S Cefepime $ <=1 S Ceftriaxone $ <=1 S Ciprofloxacin $ <=0.25 S ESBL - Ertapenim $$$ <=0.5 S Gentamicin $ <=1 S Imipenem *NF <=0.25 S Levofloxacin $ <=0.12 S Nitrofurantoin $ <=16 S Piperacillin/Tazobactam $$ <=4 S Tobramycin $ <=1 S Trimethoprim/Sulfametho $ <=20 S (NF) indicates non-formulary drug at [facility]. Approval by Infectious Disease Specialist required before non-formulary drugs may be ordered and/or dispensed. Performed By: #### M100.0650 #### [facility] [address] [facility] [place], [address] ORTHOPEDIC VISIT Observed: 04/12/2018 Status: F Source: [place] REPORT 11:36 AM [facility] [address] [place] [address] 5 [place] [address] OFFICE VISIT Date of Service: 04/12/18 MR#: [id number] Acct: [id number] Name: ERNESTO KATZ Rep #: [id number] : 1940 Provider: MARIAH Palencia Age/Sex: 77/F Location[place] [facility] [place] Status: Signed Intake Intake Visit Reasons: LEFT KNEE Is patient in pain?: Yes Allergies lisinopril Allergy (Verified 04/12/18 11:00) Hives Sulfa (Sulfonamide Antibiotics) Allergy (Verified 04/12/18 11:00) Hives Medications Acetaminophen [Tylenol Arthritis] 1,200 mg PO TID 05/01/16 [History Confirmed 02/10/18] Aspirin [Aspirin, Baby] 81 mg PO DAILY 05/01/16 [History Confirmed 02/10/18] metoprolol tartrate 25 mg tablet 25 mg PO BID #180 tab 11/26/17 [Rx Confirmed 02/10/18] atorvastatin 10 mg tablet 10 mg PO QHS #90 tab 12/21/17 [Rx Confirmed 02/10/18] clopidogrel 75 mg tablet 75 mg PO DAILY #90 tab 12/21/17 [Rx Confirmed 02/10/18] amiodarone 200 mg tablet 100 mg PO QDAY tab 01/01/18 [History Confirmed 02/10/18] Levothyroxine [Synthroid] 75 mcg PO DAILY 02/03/18 [History Confirmed 02/10/18] PFSH Medical History H/O: hysterectomy (Resolved) HLD (hyperlipidemia) (Chronic) CAD (coronary artery disease) (Chronic) HTN (hypertension) (Chronic) Carotid artery disease (Chronic) Chest pain (Acute) Arthritis (Chronic) Surgical History FH: carotid endarterectomy (Resolved) Hx of cataract surgery (Resolved) History of ureter stent (Chronic) History of PTCA (Resolved) H/O endarterectomy (Inactive) Hx of heart artery stent (Inactive) S/P bilateral cataract extraction (Inactive) Family History Mother CVA (cerebral vascular accident) Hypertension Alcoholism Father Heart disease Social History Smoking Status: Never smoker HPI LEFT KNEE: Details: ERNESTO KATZ is a 77 year old F here today for continued left knee pain. She states that she has increased pain with ambulation. Her pain is of her entire knee. Patient had an injection on 7/9/[address] Mullins which was only helpful for about 3 months. Denies numbness, tingling or other associated symptoms. She denies any recent PT or bracing. ROS Const Reports system reviewed and no additional complaints, except as docu Eyes Reports system reviewed and no additional complaints, except as docu ENT Reports system reviewed and no additional complaints, except as docu Card Reports system reviewed and no additional complaints, except as docu Resp Reports system reviewed and no additional complaints, except as docu GI Reports system reviewed and no additional complaints, except as docu Reports system reviewed and no additional complaints, except as docu Musc Reports joint pain Skin/Breast Reports system reviewed and no additional complaints, except as docu Neuro Yes system reviewed and no additional complaints, except as docu Psych Reports system reviewed and no additional complaints, except as docu Endo Reports system reviewed and no additional complaints, except as docu Ortho Exam Left Knee Contralateral Normal: Yes Swelling: No Homans Sign: No Knee ROM: No ROM-Flexion 0-140 (125), No ROM-Extension -20 to 0 (10 degree lag) Examination: Yes med jt line tenderness, Yes Pain with flexion, Yes Crepitus Popliteal Adenopathy: No Patella Grind: Yes Office Procedures Ortho Injections Injections Yes Knee Left Details: Obtained consent for injection. Under sterile conditions, injected the patients left knee with a 10cc cocktail of 8cc bupivacaine and 2cc kenalog . The patient tolerated the injection well without any noted complication. Patient should call our office if redness develops, pain worsens or if they have any concerns. Office Meds Kenalog Performing Provider: MARIAH Ortiz Administered by: MARIAH Ortiz on 04/12/18 11:06 Dose Route Admin Location Lot Number Expiration DateNDC Senior Lead Java Developer 80 mg Intra-Articularleft knee [id number] 05/08/19 9528-1315-08 [employer] Assessment AND Plan Problems 1. Arthritis of left knee M17.12 Plan Patient has had injections previously at the same time the injection relief has become less and less each time. His last injection lasted between 3 and 4 months. This time she would like to proceed with another injection into the left knee. We did discuss continued home exercise programs as well as range of motion as she does have some decrease with flexion as well as extension. Patient did have another injection in 3 months. She is to notify sooner of any worsening or other complaints. Orders Orders: Medications Discontinued: Kenalog (triamcinolone acetonide) Disco80 mg (2 mL) Intra- Articular ONCE 2 mL 0RFM17.12 ntinued Reason: Office Medication has bee NS n Documented as given Plan Detail Follow Up 3 Months Coding Level of Care Code Off vis,est,level 3 Diagnoses Arthritis of left knee M17.12 Additional Codes counter server.knee ([id number]) 04/12/18 1136 <Electronically signed by Jermaine LEMUS> Date Jermaine LEMUS Cosigner Signature: Date (if applicable) CC: Observed: 03/25/2018 Status: F Source: [place] CULTURE, URINE 11:30 AM [facility] Urine Culture ORGANISM 1: Presumptive E. coli Paradise Count >100,000 Presumptive E. coli: REACTION Amoxacillin/Clavulanic Acid $ <=2 S Ampicillin $ <=2 S Ampicillin/Sulbactam $ <=2 S Cefazolin $ <=4 S Cefepime $ <=1 S Ceftriaxone $ <=1 S Ciprofloxacin $ <=0.25 S ESBL - Ertapenim $$$ <=0.5 S Gentamicin $ <=1 S Imipenem *NF <=0.25 S Levofloxacin $ <=0.12 S Nitrofurantoin $ <=16 S Piperacillin/Tazobactam $$ <=4 S Tobramycin $ <=1 S Trimethoprim/Sulfametho $ <=20 S (NF) indicates non-formulary drug at [facility]. Approval by Infectious Disease Specialist required before non-formulary drugs may be ordered and/or dispensed. Performed By: #### M100.0650 #### [facility] [address] [place], [address] CBC W/DIFF, AUTOMATED Collected: 02/22/2018 Status: F Source: [place] 1:28 PM [facility] TYPE CODE TESTS RESULT OUT OF RANGE REFERENCE UNITS LAB L100.1000 4.4-11.0 K/mm3 Normal WBC 7.8 LAB L100.1200 4.2-5.4 M/mm3 Low RBC 3.33 LAB L100.1300 12.0-15.0 g/dl Low HGB 8.8 LAB L100.1400 37-47 % Low HCT 29.3 LAB L100.1500 81-99 fL Normal MCV 88.0 LAB L100.1600 27.0-32.0 pg Low MCH 26.4 LAB L100.1700 32-36 g/gl Low MCHC 30.0 LAB L100.1810 11.6-14.6 % High RDW CV 17.6 LAB L100.1820 35.1-43.9 fl High RDW SD 56.1 LAB L100.1900 150-450 K/mm3 Normal PLT 275 LAB L100.2000 6.2-12.0 fl Normal MPV 9.7 LAB L100.2100 47-70 % Normal NEUT% 68.9 LAB L100.2200 19-41 % Low LY% 15.7 LAB L100.2300 0-10 % High MONO% 12.2 LAB L100.2400 0-5 % Normal EO% 2.6 LAB L100.2500 0-1 % Normal BASO% 0.3 LAB L100.2550 0.0-0.9 % Normal IM GRAN % 0.300 Result Comment: IG% - Immature Granulocytes (promyelocytes, myelocytes and metamyelocytes) > 1% indicates that a LEFT SHIFT is Present. LAB L100.2620 2.0-7.7 X10 3/uL Normal Absolute Neut 5.4 LAB L100.2720 0.83-4.51 X10 3/ul Normal Absolute Lymph 1.22 Performed By: #### L100.0100, L100.9950 #### [facility] [address] [place], [address] RETIC PANEL Collected: 02/22/2018 Status: F Source: [place] 1:28 PM [facility] TYPE CODE TESTS RESULT OUT OF RANGE REFERENCE UNITS LAB L101.0000 0.5-1.5 % Normal RETIC 1.08 LAB L101.0060 3.00-15.90 % High IM RET FRACTION 16.50 LAB L101.0090 30-35 pg Low RET-HE 21.1 LAB L101.0110 1.0-7.9 % Normal IPF 1.1 Result Comment: Low PLT + Low IPF suggest a bone marrow production disorder Low PLT + high IPF suggests peripheral destruction (e.g.ITP, TTP, HIT, DIC, autoimmune) or bone marrow recovery Trending of serial IPF measurements is recommended when evaluating for bone marrow respones Value above normal range indicates an increase in RBC cellular response from bone marrow. Performed By: #### L100.0100, L100.9950 #### [facility] [address] [place], [address] BASIC METABOLIC Collected: 02/22/2018 Status: F Source: [place] PROFILE (BMP) 1:28 PM [facility] TYPE CODE TESTS RESULT OUT OF RANGE REFERENCE UNITS LAB L501.0100 74-106 mg/dL Normal GLU 93 Result Comment: Please note revised GLUCOSE reference range effective 2017. LAB L501.1000 7-18 mg/dL High BUN 26 LAB L501.1100 0.55-1.02 mg/dL High CREAT,SERUM 2.42 Result Comment: The validity of the calculated GFR AND GFRAA in patients over 70 years has not been determined. Clinical correlation is essential. LAB L501.1110 >60 mL/min Low EST GFR 21 Result Comment: Non- GFR Calc LAB L501.1115 >60 mL/min Low EST GFR - AA 25 Result Comment: GFR Calc LAB L501.1300 10-20 RATIO Normal BUN/CRE 10.7 LAB L501.2200 8.5-10.1 mg/dL CA Normal 10.1 LAB L501.5300 136-145 mmol/L NA Normal 140 LAB L501.5600 3.5-5.1 mmol/L K Normal 3.7 LAB L501.5900 98-107 mmol/L High CL 110 LAB L501.6100 21.0-32.0 mmol/L Normal CO2 21.0 LAB L501.6200 5-15 Normal GAP 9 Performed By: #### L500.2500, L503.6150, L503.6550 #### [facility] [address] [place], [address] IRON Collected: 02/22/2018 Status: F Source: [place] 1:28 PM [facility] TYPE CODE TESTS RESULT OUT OF RANGE REFERENCE UNITS LAB L503.6150 50-170 ug/dL Low IRON 16 Performed By: #### L500.2500, L503.6150, L503.6550 #### [facility] [address] [place], [address] FERRITIN Collected: 02/22/2018 Status: F Source: [place] 1:28 PM [facility] TYPE CODE TESTS RESULT OUT OF RANGE REFERENCE UNITS LAB L503.6550 8-252 ng/mL Normal FERRITIN 120 Performed By: #### L500.2500, L503.6150, L503.6550 #### [facility] [address] [place], [address] VITAMIN B12 Collected: 02/22/2018 Status: F Source: [place] 1:28 PM [facility] TYPE CODE TESTS RESULT OUT OF RANGE REFERENCE UNITS LAB L503.0105 211-911 pg/mL Normal Vitamin B12 651 Performed By: #### L503.0105 #### [facility] [address] [place], [address] Observed: 02/22/2018 Status: F Source: [place] CULTURE, URINE 1:28 PM [facility] Urine Culture ORGANISM 1: Presumptive E. coli Paradise Count >100,000 Presumptive E. coli: REACTION Amoxacillin/Clavulanic Acid $ <=2 S Ampicillin $ 4 S Ampicillin/Sulbactam $ <=2 S Cefazolin $ <=4 S Cefepime $ <=1 S Ceftriaxone $ <=1 S Ciprofloxacin $ <=0.25 S ESBL - Ertapenim $$$ <=0.5 S Gentamicin $ <=1 S Imipenem *NF <=0.25 S Levofloxacin $ <=0.12 S Nitrofurantoin $ <=16 S Piperacillin/Tazobactam $$ <=4 S Tobramycin $ <=1 S Trimethoprim/Sulfametho $ <=20 S (NF) indicates non-formulary drug at [facility]. Approval by Infectious Disease Specialist required before non-formulary drugs may be ordered and/or dispensed. Performed By: #### M100.0650 #### [facility] [address] [place], [address] DISCHARGE INSTRUCTION Observed: 02/10/2018 Status: F Source: [place] 2:03 PM [facility] [facility] Medical Records Department [address] [place] [address] Instructions for Home/Discharge Instructions 02/10/18 1402 MR#: [id number] Acct: [id number] Name: ERNESTO KATZ Rep #: [id number] : 1940 77 From: Simone Garcia MD PCP: Brett Flores DO Status: REG MTC Discharge Diet: No Restrictions Discharge Activity: Return to Normal Activity, May Not Drive - for 2 days. Additional Activity Instructions:: f you have a catheter, remove on ___. If you have any problems after catheter is removed, call [phone] and ask for your doctor to be paged. Please be aware that pain medications may cause nausea. You should typically eat light foods as you take your pain medication. Pain medication may cause constipation, if this is a problem for you, please discuss with your doctor. Allergies/Adverse Reactions: Allergies lisinopril Allergy (Verified 02/03/18 09:30) Hives Sulfa (Sulfonamide Antibiotics) Allergy (Verified 02/03/18 09:30) Hives Medications to take at Discharge Acetaminophen [Tylenol Arthritis] 1,200 mg PO TID 05/01/16 Aspirin [Aspirin, Baby] 81 mg PO DAILY 05/01/16 metoprolol tartrate 25 mg tablet 25 mg PO BID #180 tab 11/26/17 atorvastatin 10 mg tablet 10 mg PO QHS #90 tab 12/21/17 clopidogrel 75 mg tablet 75 mg PO DAILY #90 tab 12/21/17 amiodarone 200 mg tablet 100 mg PO QDAY tab 01/01/18 Levothyroxine [Synthroid] 75 mcg PO DAILY 02/03/18 Primary Care Physician: Brett Flores DO [Primary Care Provider] - Test Results: Test results from this visit will be discussed in further detail at your follow-up appointment, if applicable. Please Follow Up With: Simone Garcia MD When: please call to make an appointment. 02/10/18 1403 <Electronically signed by Simone Garcia MD> Date Simone Garcia MD CC: Brett Flores DO OPERATIVE REPORT Observed: 02/10/2018 Status: F Source: [place] 12:35 PM [facility] [place] [facility] Medical Records Department [address] [place] [address] [place] [address] Operative Report 02/10/18 1230 MR#: [id number] Acct: [id number] Name: ERNESTO KATZ Rep #: [id number] : 1940 77 From: Simone Garcia MD PCP: Brett Flores DO Status: REG SDC Y Location: [place] [address] Report of Operation Date of Procedure: 02/10/18 Pre-Operative Diagnosis: Bilateral hydronephrosis Post-Operative Diagnosis: Same and chronic renal insufficiency Surgery/Procedure Performed:: Cystoscopy bilateral retrograde, bilateral stent placement and left ureteroscopy Description of Surgical Findings:: 77-year-old female who has chronic bilateral hydronephrosis and chronic renal sufficiency of her condition was stents the stent at the be changed every few months she is now due for stent change. , the etiology of her hydronephrosis is quite unclear but she has bilateral hydro-chronic renal sufficiency rather continue with management Procedure note, 77-year-old female taken back to the operating room at the smooth induction of general anesthesia she is placed supine on the table, the urethra and vaginal area were prepped and draped in usual sterile fashion, went into the bladder with a 21 Croatian rigid cystourethroscope grabbed the existing stents there coil around each other's of the pole both stents out try to put a wire of the stents with her to encrusted so pulled the stent out and then went back in went to the left side first and try to put a Pollack catheter up the ureteral orifice but it would not go so into the right side and identified the right side orifice cannulated with a ureteral catheter and a Glidewire advanced as of the kidney performed a retrograde Polygram demonstrated hydronephrotic kidney I then advanced a stent on that side and a 6 Croatian by 26 cm stent pulled the string and the wire and the stent coiled in the kidney and bladder good position and then went to the left side and left side was quite difficult and not sure if try to put the initial catheter up I created a false passage so I tried a wire again after some manipulation was able to get up the ureter but still was was not convinced about its location and whether and created a false passage so I went next to the wire with the ureteroscope SlimLine rigid could get into the ureter initially so then I pulled back out and then eventually went over the wire with a SlimLine ureteroscope and then when I was in the ureter then I found a way to get into the ureter over the wire pulled the wire out and then repeat put the wire back in this limb a ureteroscope to make sure that I was in the good position on that side once the wire was in good position make sure there was not tunneled through a submucosal tunnel I then advanced the what wire up further performed a retrograde pyelogram and then advanced a stent over the left side stent: The kidney bladder good position I drain the bladder patient anesthetic was reversed taken back to PACU in good condition plan to see her back in about 6 weeks for checkup on the changes stent about every 3 months. Type of Anesthesia:: General Drains: Stent bilateral 6 Croatian by 26 cm - Admit VTE Documentation VTE Present on Admission: No VTE Mechan Device Prophylaxis: SCD's VTE Pharm Prophylaxis ordered?: No 02/10/18 1235 <Electronically signed by Simone Garcia MD> Date Simone Garcia MD CC: Simone Garcia MD; Brett Flores DO Signed T4 TOTAL, THYROXIN Collected: 01/29/2018 Status: F Source: [place] 10:35 AM [facility] [place] TYPE CODE TESTS RESULT OUT OF RANGE REFERENCE UNITS LAB L501.9310 4.8-13.9 ug/dL T4 Normal THYROXIN 11.8 Performed By: #### L501.9310, L501.9520 #### [facility] Laboratory [address] [place], [address] THYROID STIM HORMONE Collected: 01/29/2018 Status: F Source: [place] (TSH) 10:35 AM [facility] [place] [facility] TYPE CODE TESTS RESULT OUT OF RANGE REFERENCE UNITS LAB L501.9520 0.358-3.74 uIU/mL Normal TSH 2.07 Performed By: #### L501.9310, L5.9520 #### [facility] [address] [place], [address] Observed: 01/29/2018 Status: F Source: [place] CULTURE, URINE 10:33 AM [facility] [place] [facility] Urine Culture #2 Penicillin is the drug of choice for Beta Streptococcal infections. For Penicillin allergic patients, Erythromycin may be used. #3 Gram positive jeronimo suggestive of a diptheroid. Below infection level. There are no CLSI standards for interpretation of this Drug/Organism combination. ORGANISM 1: Presumptive E. coli Paradise Count >100,000 ORGANISM 2: Streptococcus group B Paradise Count 80,000-100,000 ORGANISM 3: Gram positive jeronimo Paradise Count 1000-10,000 Presumptive E. coli: REACTION Amoxacillin/Clavulanic Acid $ <=2 S Ampicillin $ <=2 S Ampicillin/Sulbactam $ <=2 S Cefazolin $ <=4 S Cefepime $ <=1 S Ceftriaxone $ <=1 S Ciprofloxacin $ <=0.25 S ESBL - Ertapenim $$$ <=0.5 S Gentamicin $ <=1 S Imipenem *NF <=0.25 S Levofloxacin $ <=0.12 S Nitrofurantoin $ <=16 S Piperacillin/Tazobactam $$ <=4 S Tobramycin $ <=1 S Trimethoprim/Sulfametho $ <=20 S (NF) indicates non-formulary drug at [facility]. Approval by Infectious Disease Specialist required before non-formulary drugs may be ordered and/or dispensed. Performed By: #### M100.0650 #### [facility] [address] [place], [address] PULMONARY FUNCTION Observed: 12/31/2017 Status: F Source: [place] REPORT COMP 12:31 PM [facility] [place] [facility] Pulmonary Services/Neurology [address] [place] [address] MR#: [id number] Acct: [id number] Name: ERNESTO KATZ Rep #: [id number] : 1940 77 From: Carlos Patel MD Referring Dr: Sultana Lee Status: REG CLI Ordering Dr: Date: Location: [facility] Sex: F C COMPLETE PULMONARY FUNCTION TEST INTERPRETATION Brief HPI: Patient is a 77 year old female, currently under the care of Sultana Lee, who presents to [facility] for complete pulmonary function tests secondary to diagnosis of high-risk med use. Respiratory therapist reports good effort and reproducible results. Interpretation: Forced expiration spirometry shows no large airways obstructive ventilatory defect with an FEV1 of 97% predicted. There is no significant bronchodilator response by ATS criteria. Spirograms are of good quality and plateau slowly, indicating slowly emptying areas of the lungs. The respiratory flow volume loop shows decreased expiratory flow rates at high lung volumes consistent with small airways obstruction. Lung volumes by body plethysmography show a normal total lung capacity at 4.53 L, 99% predicted. All other lung volumes are within normal limits. Diffusion capacity by carbon monoxide is decreased at 44% predicted. The airway resistance is elevated. No previous pulmonary function tests were available for review. Impression: Isolated reduction diffusing capacity consistent with possible pulmonary vascular disorder. Would recommend serial PFTs to monitor DLCO if high risk meds are continued. 12/31/17 1231 <Electronically signed by Carlos Patel MD> Date Carlos Patel MD CC: Carlos Patel MD; Brett Flores DO; Sultana Lee Date Dictated: 12/31/17 1228 Date Transcribed: 12/31/17 1228 Supervisor Wet Pour: KRYS Signed LIVER PROFILE Collected: 12/31/2017 Status: F Source: [place] 11:02 AM [facility] [place] [facility] TYPE CODE TESTS RESULT OUT OF RANGE REFERENCE UNITS LAB L501.1500 6.4-8.2 g/dL Normal T PROT 6.4 LAB L501.1800 3.2-5.0 g/dL Low ALB 2.8 LAB L501.1950 2.2-4.2 g/dL Normal GLOB 3.6 LAB L501.4100 15-37 U/L Low AST 10 LAB L501.4305 45-117 U/L High ALK P 119 LAB L501.4405 13-56 U/L Low ALT 12 LAB L501.4600 0.20-1.00 mg/dL Normal T BILI 0.40 LAB L501.4700 0.00-0.30 mg/dL Normal D BILI 0.15 Performed By: #### L500.3400, L500.4100, L501.9310, L501.9520 #### [facility] [address] [place], [place], [id number] LIPID PROFILE Collected: 12/31/2017 Status: F Source: [place] 11:02 AM [facility] [place] [facility] TYPE CODE TESTS RESULT OUT OF RANGE REFERENCE UNITS LAB L501.4900 200 mg/dL Normal CHOL 117 Result Comment: <200 mg/dL Desirable 200-240 mg/dL Borderline >240 mg/dL High Risk LAB L501.5000 mg/dL Normal TRIG 116 Result Comment: The drugs N-Acetylcysteine and Metamizole may falsely depress this assay. Serum Triglycerides Reference Interval Normal <150 mg/dL Borderline high 150 - 199 mg/dL High 200 - 499 mg/dL Very High > or = 500 mg/dL LAB L501.6400 mg/dL Normal HDL 48 Result Comment: The drugs N-Acetylcysteine and Metamizole may falsely depress this assay. Reference Range HDL <40 mg/dL Low HDL Cholesterol HDL >or= 60 mg/dL High HDL Cholesterol LAB L501.6500 0-130 mg/dL Normal LDL 46 LAB L501.6600 5-40 mg/dL Normal VLDL 23 Performed By: #### L500.3400, L500.4100, L501.9310, L501.9520 #### [facility] [address] [place], [place], [id number] T4 TOTAL, THYROXIN Collected: 12/31/2017 Status: F Source: [place] 11:02 AM [facility] [place] [facility] TYPE CODE TESTS RESULT OUT OF RANGE REFERENCE UNITS LAB L501.9310 4.8-13.9 ug/dL T4 Normal THYROXIN 8.9 Performed By: #### L500.3400, L500.4100, L501.9310, L501.9520 #### [facility] [address] [place], [address] THYROID STIM HORMONE Collected: 12/31/2017 Status: F Source: [place] (TSH) 11:02 AM [facility] [place] [facility] TYPE CODE TESTS RESULT OUT OF RANGE REFERENCE UNITS LAB L501.9520 0.358-3.74 uIU/mL High TSH 9.22 Performed By: #### L500.3400, L500.4100, L501.9310, L501.9520 #### [facility] [address] [place], [place], [address] ORTHOPEDIC VISIT Observed: 12/20/2017 Status: F Source: [place] REPORT 10:33 AM [facility] [place] [facility] [address] [place], [place] [address] OFFICE VISIT Date of Service: 12/14/17 MR#: [id number] Acct: [id number] Name: ERNESTO KATZ Rep #: [id number] : 1940 Provider: Elliott Mullins DO Age/Sex: 77/F Location: [facility] Status: Signed Intake Intake Visit Reasons: LEFT KNEE Is patient in pain?: Yes Allergies lisinopril Allergy (Verified 12/14/17 13:00) Hives Sulfa (Sulfonamide Antibiotics) Allergy (Verified 12/14/17 13:00) Hives Medications Acetaminophen [Tylenol Arthritis] 1,200 mg PO TID 05/01/16 [History Confirmed 11/26/17] Aspirin [Aspirin, Baby] 81 mg PO DAILY 05/01/16 [History Confirmed 11/26/17] Atorvastatin Calcium [Lipitor] 10 mg PO QHS 05/01/16 [History Confirmed 11/26/17] Clopidogrel Bisulfate [Plavix] 75 mg PO DAILY 05/01/16 [History Confirmed 11/26/17] amiodarone 200 mg tablet 200 mg PO QDAY 05/25/17 [History Confirmed 11/26/17] metoprolol tartrate 25 mg tablet 25 mg PO BID #180 tab 11/26/17 [Rx Confirmed 11/26/17] PFSH Medical History HLD (hyperlipidemia) (Chronic) CAD (coronary artery disease) (Chronic) HTN (hypertension) (Chronic) Carotid artery disease (Chronic) Chest pain (Acute) Arthritis (Chronic) Surgical History H/O: hysterectomy (Resolved) FH: carotid endarterectomy (Resolved) Hx of cataract surgery (Resolved) History of ureter stent (Chronic) History of PTCA (Resolved) H/O endarterectomy (Inactive) Hx of heart artery stent (Inactive) S/P bilateral cataract extraction (Inactive) Family History Mother CVA (cerebral vascular accident) Hypertension Alcoholism Father Heart disease Social History Smoking Status: Never smoker HPI LEFT KNEE: Details: ERNESTO KATZ is a 77 year old F here today for continued left knee pain. She states that she has pain over her medial knee and popping. She denies any knee swelling. Patient ambulates with an antalgic gait due to pain. She had an injection on 05/25/17 which was helpful for about 6 months. Denies numbness, tingling or other associated symptoms. ROS Const Reports system reviewed and no additional complaints, except as docu Eyes Reports system reviewed and no additional complaints, except as docu ENT Reports system reviewed and no additional complaints, except as docu Card Reports system reviewed and no additional complaints, except as docu Resp Reports system reviewed and no additional complaints, except as docu GI Reports system reviewed and no additional complaints, except as docu Reports system reviewed and no additional complaints, except as docu Musc Reports joint pain, Reports stiffness Skin/Breast Reports system reviewed and no additional complaints, except as docu Neuro Yes system reviewed and no additional complaints, except as docu Psych Reports system reviewed and no additional complaints, except as docu Endo Reports system reviewed and no additional complaints, except as docu Ortho Exam Right Knee Patella Translation: 1 Left Knee Contralateral Normal: Yes Swelling: Yes Homans Sign: No 1+: Effusion Knee ROM: Yes ROM-Flexion 0-140 (5-125) Examination: Yes med jt line tenderness, Yes Pain with flexion, Yes Crepitus, Yes Maribel's Test, Yes TTP inf pole patella Quad Atrophy: No Stability: NML: Anterior Drawer, NML: Lang, NML: Posterior Drawer, NML: Varus 0, NML: Varus 30, NML: Dial 90, NML: Dial 30, 1+: Valgus 0, 1+: Valgus 30 Popliteal Adenopathy: No Patella Translation: 1 Apprehension with Lateral Translation: No Patellar Tilt Normal: No Patella Grind: Yes Office Procedures Ortho Injections Injections Yes Knee Left Details: Obtained consent for injection. Under sterile conditions, injected the patients left knee with a 10cc cocktail of 8cc bupivacaine and 2cc kenalog . The patient tolerated the injection well without any noted complication. Patient should call our office if redness develops, pain worsens or if they have any concerns. Office Meds Kenalog Performing Provider: Elliott Mullins DO Administered by: Elliott Mullins DO on 12/14/17 13:08 Dose Route Admin Location Lot Number Expiration DateNDC Senior Lead Java Developer 2 mg Intra-Articularleft knee [id number] 10/06/18 2355-1373-01 [employer] Assessment AND Plan Problems 1. Chronic pain of left knee M25.562; G89.29 2. Primary osteoarthritis of left knee M17.12 Plan Assessment: Left knee osteoarthritis and left knee pain. Plan: This point time patient would like to proceed with a left knee injection. Patient's last injection was in May and she is responded very well to conservative care. Patient does think that she is losing a little bit of the effect of the steroids and is aware that they may drop over time at which point she may need to have a total knee arthroplasty. For now we will go and proceed with an injection. Patient aware that I am leaving the practice but she will be able to follow-up either with our PA or my partner continued injections as needed but will need to be referred out for consideration for surgery if needed. Contact information for the [facility] and Dr. Joyner will provide if the patient were desire to stay more locally. Obtained consent for injection. Under sterile conditions, injected the patients left knee with a 10cc cocktail of 8cc bupivacaine and 2cc kenalog . The patient tolerated the injection well without any noted complication. Patient should call our office if redness develops, pain worsens or if they have any concerns. Orders Orders: Medications Discontinued: Kenalog (triamcinolone acetonide) 2 mg (0.2 mL) Intra-Articular ONCE NM17.12 Celeste Romo Discontinued Reason: Office MedicaS tion has been Documented as given Coding Level of Care Code No Charge Diagnoses Chronic pain of left knee M25.562; G89.29 Chronicity: chronic Primary osteoarthritis of left knee M17.12 Osteoarthritis type: primary Additional Codes counter [email or web address] ([id number]) 12/20/17 1033 <Electronically signed by Elliott Mullins DO> Date Elliott Mullins DO Cosigner Signature: Date (if applicable) CC: CARDIOLOGY VISIT Observed: 12/01/2017 Status: F Source: [place] REPORT 11:18 AM [facility] [place] [facility] [address] [place] [address] OFFICE VISIT Date of Service: 11/26/17 MR#: [id number] Acct: [id number] Name: ERNESTO KATZ Rep #: [id number] : 1940 Provider: Sultana Lee Age/Sex: 77/F Location: [facility] Status: Signed [facility] HPI Details: ERNESTO KATZ, is a 77 F who presents to the office today for a cardiovascular follow-up. She has a history of coronary artery disease with stenting to her LAD in 2008, bradycardia that was felt to be related to atenolol. She also has a history of hypertension and hyperlipidemia. She does have renal dysfunction and does receive frequent ureter stents. In February of last year during hospitalization she was noted to have paroxysmal atrial fibrillation. She was started on amiodarone. From a cardiac standpoint, patient is doing well. She does not have any chest discomfort/heaviness/tightness. Her exercise tolerance is stable for her age. She does not have any worsening symptoms of shortness of breath. She does not have any orthopnea. She denies PND. She does not have any symptoms of congestive heart failure. She does not have any palpitations that she is aware of. She does not have any lightheadedness or dizziness. She does not have any near-syncope or syncope. She does not have any lower extremity edema. She does not have any symptoms of claudication. 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 Required: No Is patient in pain?: No Allergies lisinopril Allergy (Verified 11/26/17 10:01) Hives Sulfa (Sulfonamide Antibiotics) Allergy (Verified 11/26/17 10:01) Hives Medications Acetaminophen [Tylenol Arthritis] 1,200 mg PO TID 05/01/16 [History Confirmed 11/26/17] Aspirin [Aspirin, Baby] 81 mg PO DAILY 05/01/16 [History Confirmed 11/26/17] Atorvastatin Calcium [Lipitor] 10 mg PO QHS 05/01/16 [History Confirmed 11/26/17] Clopidogrel Bisulfate [Plavix] 75 mg PO DAILY 05/01/16 [History Confirmed 11/26/17] amiodarone 200 mg tablet 200 mg PO QDAY 05/25/17 [History Confirmed 11/26/17] metoprolol tartrate 25 mg tablet 25 mg PO BID #180 tab 11/26/17 [Rx Confirmed 11/26/17] [facility] Medical History HLD (hyperlipidemia) (Chronic) CAD (coronary artery disease) (Chronic) HTN (hypertension) (Chronic) Carotid artery disease (Chronic) Chest pain (Acute) Arthritis (Chronic) Surgical History H/O: hysterectomy (Resolved) FH: carotid endarterectomy (Resolved) Hx of cataract surgery (Resolved) History of PTCA (Resolved) H/O endarterectomy (Inactive) Hx of heart artery stent (Inactive) S/P bilateral cataract extraction (Inactive) Family History Mother CVA (cerebral vascular accident) Hypertension Alcoholism Father Heart disease Social History Smoking Status: Never smoker ROS Const Const: Negative for weakness, fatigue, fever(s) or headache(s) Eyes Eyes: Negative for blind spots, loss of peripheral vision or transient loss of vision ENT ENT: Negative for headache(s), dizziness, tinnitus or Nosebleed/epistaxis Cardio Chest Pain: No Palpitations: No Edema: None Muscle aches with walking: None Resp Respiratory: Negative for SOB with activity, SOB at rest, SOB orthopnea\SOB lying down or Cough GI GI: Negative nausea, vomiting, heartburn or vomiting blood/hematemesis : Negative for hematuria Musc Musc: Negative for muscle aches/ myalgia Neuro Neuro: Negative for weakness, headache(s), dizziness, near syncope, syncope, lightheadedness or orthostatic symptoms Owen Hematologic/Lymphatic: Negative for easy bleeding Endo Endo: Negative for fatigue Cardiology Exam Const Appearance: cooperative, no acute distress and well developed Orientation: alert, awake and oriented x3 Head Head: normocephalic and atraumatic Mouth: moist mucous membranes Eyes General: appearance normal, both eyes and all related structures Conjunctivae: conjunctivae normal Pupils: PERRL EOM: EOM intact bilaterally Neck Neck: normal visual inspection, no lymphadenopathy and no JVD Carotids: Negative bruit Neck Mass: Negative Neck mass Chest Chest inspection: normal inspection of the chest and symmetric chest movement Auscultation: Bilateral: Clear to Auscultation Cardio Palpation: normal PMI Rate: regular rate Rhythm: regular rhythm Heart sounds: S1 normal and S2 normal; negative rub, gallop or murmur GI GI: normal to inspection, soft, no hepatosplenomegaly and bowel sounds present; negative tender Neuro General: alert, awake, oriented x3, CN's II-XI intact bilaterally and moves all extremities Extremities Pulses: Normal: Right Posterior Tibial Pulse, Left Posterior Tibial Pulse, Right Radial Pulse, Left Radial Pulse Lower Extremity Edema: None: Bilateral Psych Psychological: normal affect Supplemental Info Echocardiogram in 2016 demonstrates an ejection fraction of 55%. Mild valvular insufficiency. Assessment AND Plan 1. Coronary artery disease involving tribal coronary artery of tribal heart, angina presence unspecified I25.10 Stent to mid LAD in 2008 Plan - MARIAH Bunn Stable, from a cardiac standpoint patient does not have any symptoms of angina. We recommend that they continue with current aggressive medical management and risk factor modification. She did have a stress test that was 5 years ago. She is fairly active. Do not feel that any additional testing needs to be done at this time. Orders Orders: 2. Essential hypertension I10 Plan - MARIAH Bunn Blood pressure is well controlled on current medications, we do not recommend any changes at this time. Orders Orders: 3. Pure hypercholesterolemia E78.00; E78.0 Plan - MARIAH Bunn These are managed by primary care doctor. She is due to have these checked in the near future. 4. 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 We will continue to monitor. 5. Paroxysmal atrial fibrillation I48.0 Plan - MARIAH Bunn Patient has not had any further recurrence. We will continue to monitor. She is on amiodarone. We will continue to monitor thyroid, hepatic and pulmonary function test routinely. Plan Detail Other Orders Orders: Other Medications New: Additional Comments - MARIAH Bunn The above patient was discussed with Dr. Cason, he agrees with plan of care. Thank you for allowing us to participate in patient's plan of care, if you have any questions please do not hesitate to call. This note was generated using a voice recognition system and there may be incorrect words, spelling or punctuation errors that were not noted when reviewing the office note prior to saving. Follow Up 1 Year ([employer]) Coding Level of Care Code Off vis,est,level 3 Diagnoses Coronary artery disease involving tribal coronary artery of tribal heart, angina presence unspecified I25.10 Coronary Disease-Associated Artery/Lesion type: tribal artery [place] vs. 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9 LAB L100.1400 37-47 % Low HCT 31.7 LAB L100.1500 81-99 fL Normal MCV 89.0 LAB L100.1600 27.0-32.0 pg Normal MCH 27.8 LAB L100.1700 32-36 g/gl Low MCHC 31.2 LAB L100.1810 11.6-14.6 % High RDW CV 17.9 LAB L100.1820 35.1-43.9 fl High RDW SD 57.2 LAB L100.1900 150-450 K/mm3 Normal PLT 374 LAB L100.2000 6.2-12.0 fl Normal MPV 8.4 Performed By: #### L100.0500 #### [facility] [address] [place], [address] BASIC METABOLIC Collected: 11/05/2017 Status: F Source: [place] PROFILE (BMP) 9:20 AM [facility] [place] TYPE CODE TESTS RESULT OUT OF RANGE REFERENCE UNITS LAB L501.0100 74-106 mg/dL Normal GLU 92 Result Comment: Please note revised GLUCOSE reference range effective 2017. LAB L501.1000 7-18 mg/dL High BUN 27 LAB L501.1100 0.55-1.02 mg/dL High CREAT,SERUM 2.31 Result Comment: The validity of the calculated GFR AND GFRAA in patients over 70 years has not been determined. Clinical correlation is essential. LAB L501.1110 >60 mL/min Low EST GFR 22 Result Comment: Non- GFR Calc LAB L501.1115 >60 mL/min Low EST GFR - AA 26 Result Comment: GFR Calc LAB L501.1300 10-20 RATIO Normal BUN/CRE 11.7 LAB L501.2200 8.5-10.1 mg/dL CA Normal 9.9 LAB L501.5300 136-145 mmol/L NA Normal 140 LAB L501.5600 3.5-5.1 mmol/L K Normal 4.1 LAB L501.5900 98-107 mmol/L High CL 112 LAB L501.6100 21.0-32.0 mmol/L Low CO2 20.0 LAB L501.6200 5-15 Normal GAP 8 Performed By: #### L500.2500 #### [facility] [address] [place], [address] DISCHARGE INSTRUCTION Observed: 09/25/2017 Status: F Source: [place] 1:05 PM [facility] [place] [facility] Medical Records Department [address] [place] [address] Instructions for Home/Discharge Instructions 09/25/17 1255 MR#: [id number] Acct: [id number] Name: ERNESTO KATZ Rep #: [id number] : 1940 76 From: Simone Garcia MD PCP: Brett Flores DO Status: REG [facility] ADDENDUM by Simone Garcia MD on 09/25/17 at 1305 Appt to see me on November 05 at 8:45 am call if need to change appt. Date Simone Garcia MD cc: Brett Flores DO * Signed Discharge Diet: Light diet - advance as tolerated Discharge Activity: Return to Normal Activity Call your doctor if your incision/area has: Continuous Slow Oozing Call your doctor if you observe: Fever of 101 or Higher Allergies/Adverse Reactions: Allergies lisinopril Allergy (Verified 09/18/17 10:10) Hives Sulfa (Sulfonamide Antibiotics) Allergy (Verified 09/18/17 10:10) Hives Medications to take at Discharge Acetaminophen [Tylenol Arthritis] 1,200 mg PO TID 05/01/16 Aspirin [Aspirin, Baby] 81 mg PO DAILY 05/01/16 Atorvastatin Calcium [Lipitor] 10 mg PO QHS 05/01/16 Clopidogrel Bisulfate [Plavix] 75 mg PO DAILY 05/01/16 amiodarone 200 mg tablet 200 mg PO QDAY 05/25/17 metoprolol tartrate 25 mg tablet 25 mg PO BID 05/25/17 Primary Care Physician: Brett Flores DO [Primary Care Provider] - Please Follow Up With: Simone Garcia MD When: call for an appt ion 6 weeks 09/25/17 1256 <Electronically signed by Simone Garcia MD> Date Simone Garcia MD CC: Brett Flores DO OPERATIVE REPORT Observed: 09/25/2017 Status: F Source: LEN[place] 1:00 PM [facility] [place] [facility] Medical Records Department [address] [place] [address] Operative Report 09/25/17 1257 MR#: [id number] Acct: [id number] Name: ERNESTO KATZ Rep #: [id number] : 1940 76 From: Simone Garcia MD PCP: Brett Flores DO Status: REG [facility] Y Location: [place] [address] Report of Operation Date of Procedure: 09/25/17 Pre-Operative Diagnosis: History of bilateral reflux seen hydronephrosis Post-Operative Diagnosis: Same Surgery/Procedure Performed:: Cystoscopy and bilateral retrograde pyelograms and bilateral stent changes Description of Surgical Findings:: 76-year-old female who has a history of hydronephrosis of both the left kidney and the right kidney her creatinine is has been relatively stable at the keep the walk keep watching it. She has had recurrent infections and also in the past had severe bladder and kidney infections for refluxing hydronephrosis she has a significant cystocele. I have offered her a referral for repair but she is refused referral and may consider having her see a local sqe see if this will help. 76-year-old female taken to the operating room after smooth induction of general anesthesia she was placed in dorsal lithotomy position the urethra and vaginal area were prepped and draped in usual sterile fashion. Went into the bladder with a 21 Croatian rigid cystourethroscope grabbed the existing stent from the right side pulled out the meatus advanced the wire up the stent over the wire I then advanced a Pollack catheter performed a retrograde pyelogram which demonstrated a dilated kidney. I then advanced a new stent over the wire into the kidney and then once a stent was in good position I cut the string and position the stent in good position. I then went to the left side grabbed the existing stent on the left side pulled out the meatus advanced a wire up the stent put a Pollack catheter over the wire up into the kidney and the left side contrast into the kidney which demonstrated hydronephrosis and then I advanced a stent up on the left side once stent was in good position pulled the wire and then position the stent between the bladder and the kidney there was a stent was positioned to remove the wire string off the stent. After performing bilateral retrogrades bilateral stent placement that I drain the bladder patient anesthetic was reversed taken back to PACU in good condition. She will see me back in about 6 weeks in the office given an appointment. Type of Anesthesia:: Local MAC Drains: stents - Admit VTE Documentation VTE Present on Admission: No VTE Mechan Device Prophylaxis: SCD's VTE Pharm Prophylaxis ordered?: No Reason prophylaxis not ordered:: Treatment Not Indicated 09/25/17 1300 <Electronically signed by Simone Garcia MD> Date Simone Garcia MD CC: Simone Garcia MD; Brett Flores DO Signed Observed: 08/24/2017 Status: F Source: [place] CULTURE, URINE 2:00 PM [facility] [place] [facility] Urine Culture ORGANISM 1: Streptococcus agalactiae (B) [place] Count 80,000-100,000 Streptococcus agalactiae (B): REACTION Ampicillin $ <=0.25 S Benzylpenicillin NF <=0.06 S Ceftriaxone $ <=0.12 S Inducable Clindamycin Resistan - Linezolid $$$$ <=2 S Vancomycin $ 0.25 S (NF) indicates non-formulary drug at [facility]. Approval by Infectious Disease Specialist required before non-formulary drugs may be ordered and/or dispensed. * CLSI guidelines does not recommend testing of cephalosporins. This interpretation is deduced from Beta-lactam/penicillin results. Performed By: #### M100.0650 #### [facility] [address] [place] [address]. [place], [address] ALLERGIES ALLERGIES DATE TYPE / CODE NAME / CODE REACTION SEVERITY SOURCE 04/12/2018 Drug Sulfa Hives Unknown [facility] Allergy/4160 (Sulfonamide [facility] [address](SNOMED Antibiotics)/ Repository CT) [id number](RX NORM) 04/12/2018 Drug lisinopril/F0 Hives Unknown [facility] Allergy/4160 [id number](RXNO Hospital [address](SNOMED RM) Repository CT) ENCOUNTERS ENCOUNTERS ADMIT/DISCHARGE ACCOUNT ADMITTING ENCOUNTER LOCATION SOURCE NUMBER CLASS 06/17/[id number] [facility] 3 [facility] ing:LABSPEC Repository 05/26/2018 [id number] Ambulatory [address] ing:LAB.FUTUR Repository E 04/12/2018/ [id number] Ambulatory BMSBuilding:B [place] 8 8 [facility] Repository 03/25/2018 [id number] Ambulatory [address] ing:LABSPEC Repository 03/02/2018 [id number] Ambulatory [place] 3 [facility] ing:LAB.FUTUR Repository E 02/22/2018 [id number] Ambulatory [place] 9 [facility] ing:BFHLAB Repository 02/10/2018/ [id number] Ambulatory [place] 8 1 [facility] ing:SDC Repository 01/29/2018 [id number] Ambulatory [place] 8 [facility] ing:LAB.FUTUR Repository E 12/31/2017 [id number] Ambulatory [place] 3 [facility] ing:PSN Repository 12/31/2017 [id number] Ambulatory BMSBuilding:W [place] 2 [facility] Repository 12/14/2017/ [id number] Ambulatory BMSBuilding:B [place] 8 2 [facility] Repository 11/26/2017/ [id number] Ambulatory BMSBuilding:B [place] [address] [facility] Repository 11/20/2017 [id number] Ambulatory BMS [place] 8 [facility] Repository 11/05/2017 [id number] Ambulatory [place] 0 [facility] ing:LAB Repository 11/03/2017 [id number] Ambulatory BMSBuilding:B [place] 7 [facility] Repository 09/25/2017/ [id number] Ambulatory [place] 8 8 [facility] ing:SDC Repository 08/24/2017 [id number] Ambulatory [place] 2 [facility] ing:LABSPEC Repository PAYERS PAYERS ENCOUNTER GUARANTOR PAYER SUBSCRIBER SOURCE 06/17/2018 ERNESTO Marshall Primary ERNESTO H [place] [id number] TR [facility] [address] [id number] [facility] [address]Rep: MEDICAREPolicy Repository Number: HP) [id number] Date: SHERON SANTANA [address]XW: 06/17/2018 Secondary NOT GIVENUNK [place] Insurance:SELF PAY [facility] Number: Effective Repository Date:2018-06-17 05/26/2018 ERNESTO Marshall Primary ERNESTO [id number] TR Insurance:[place] FL[place]NERDOB: [facility] [id number] [facility] Medical Center [address]Cch: MEDICAREPolicy Repository Number: () [id number] Date: [place], [place] [address]UF: 05/26/2018 Secondary NOT GIVENUNK [place] Insurance:SELF PAY [facility] Number: Effective Repository Date:2018-02-23 04/12/2018 ERNESTO Marshall Primary ERNESTO [id number] TR Insurance:[place] FLINNERDOB: Community [facility] [id number] Regional Medical Center [address]Rbj: MEDICAREPolicy Repository Number: () [id number] Date: [place], [place] [address]MW: 04/12/2018 Secondary NOT GIVENUNK [place] Insurance:SELF PAY [facility] Number: Effective Repository Date:2018-04-12 03/25/2018 ERNESTO Marshall Primary ERNESTO [id number] TR Insurance:[place] FLINNERDOB: Community [facility] [id number] Regional Medical Center [address]Iwp: MEDICAREPolicy Repository Number: () [id number] Date: [place], [place] [address]CX: 03/25/2018 Secondary NOT GIVENUNK [place] Insurance:SELF PAY [facility] Number: Effective Repository Date:2018-03-25 03/02/2018 ERNESTO Marshall Primary ERNESTO [id number] TR Insurance:[place] FLINNERDOB: Community [address]BI [facility] [id number] [place] [address]Gbn: MEDICAREPolicy Repository Number: (HP) [id number] Date: [place], [place] [address]UW: 03/02/2018 Secondary NOT GIVENUNK [place] Insurance:SELF PAY [facility] Number: Effective Repository Date:2018-02-24 02/22/2018 ERNESTO Marshall Primary ERNESTO Phelps [id number] TR Insurance:[place] FLINNERDOB: Community [facility] [id number] [place] [address]Qfc: MEDICAREPolicy Repository Number: (HP) [id number] Date: [place], [place] [address]BE: 02/22/2018 Secondary NOT GIVENUNK [place] Insurance:SELF PAY [facility] Number: Effective Repository Date:2018-02-22 02/10/2018 ERNESTO Marshall Primary ERNESTO Phelps [id number] TR Insurance:[place] FLINNERDOB: Community [facility] [id number] [place] [address]Itb: MEDICAREPolicy Repository Number: (HP) [id number] Date: [place], [place] [address]NO: 02/10/2018 Secondary NOT GIVENUNK [place] Insurance:SELF PAY [facility] Number: Effective Repository Date:2018-01-22 01/29/2018 ERNESTO Marshall Primary ERNESTO Phelps [id number] TR Insurance:[place] FLINNERDOB: Community [facility] [id number] [place] [address]Rvu: MEDICAREPolicy Repository Number: (HP) [id number] Date: [place], [place] [address]PN: 01/29/2018 Secondary NOT GIVENUNK [place] Insurance:SELF PAY [facility] Number: Effective Repository Date:2018-01-26 12/31/2017 ERNESTO Marshall Primary ERNESTO Phelps [id number] TR Insurance:[place] FLINNERDOB: [address] [id number] [facility] [address]Ojw: MEDICAREPolicy Repository Number: () [id number] Date: [place], [place] [address]JQ: 12/31/2017 Secondary NOT GIVENUNK [place] Insurance:SELF PAY [facility] Number: Effective Repository Date:2017-11-26 12/31/2017 ERNESTO Marshall Primary ERNESTO Phelps [id number] TR Insurance:[place] FLINNERDOB: [address] [id number] Regional Medical Center [address]Wjy: MEDICAREPolicy Repository Number: () [id number] Date: [place], [place] [address]GM: 12/31/2017 Secondary NOT GIVENUNK [place] Insurance:SELF PAY [facility] Number: Effective Repository Date:2017-12-31 12/14/2017 ERNESTO Marshall Primary ERNESTO Phelps [id number] Insurance:[place] FLINNERDOB: [facility] [id number] Hospital [address], [place]ository [place] [address]Tcq: Number: [id number] () Date: [place], [place] [address]RR: 12/14/2017 Secondary NOT GIVENUNK [place] Insurance:SELF PAY [facility] Number: Effective Repository Date:2017-12-14 11/26/2017 ERNESTO Marshall Primary ERNESTO Phelps [id number] Insurance:[place] FLINNERDOB: [facility] [id number] [facility] [address] [place], MEDICAREPolicy Repository [place] [address]Xsh: Number: [id number] (HP) Date: [place], [place] [address]GG: 11/26/2017 Secondary NOT GIVENUNK [place] Insurance:SELF PAY [facility] Number: Effective Repository Date:2017-11-26 11/20/2017 ERNESTO Marshall Primary ERNESTO [id number] TR Insurance:[place] FLINNERDOB: [address] [id number] [place] [address]Kge: MEDICAREPolicy Repository [phone] Number: -4 (HP) [id number] Date: [place], [place] [address]EC: 11/20/2017 Secondary NOT GIVENUNK [place] Insurance:SELF PAY [facility] Number: Effective Repository Date:2017-11-20 11/05/2017 ERNESTO Marshall Primary ERNESTO Phelps [id number] TR Insurance:[place] FLINNERDOB: [address] [id number] [place] [address]Nkq: MEDICAREPolicy Repository [phone] Number: -4 (HP) [id number] Date: [place], [place] [address]YT: 11/05/2017 Secondary NOT GIVENUNK [place] Insurance:SELF PAY [facility] Number: Effective Repository Date:2017-11-05 11/03/2017 ERNESTO Marshall Primary ERNESTO [id number] TR Insurance:[place] GIANNADOB: [address] [id number] [place] [address]Pyp: MEDICAREPolicy Repository [phone] Number: -4 (HP) [id number] Date: SHERON SANTANA [address]OG: 11/03/2017 Secondary NOT GIVENUNK [place] Insurance:SELF PAY [facility] Number: Effective Repository Date:2017-11-03 09/25/2017 ERNESTO Marshall Primary ERNESTO Phelps [id number] TR Insurance:[place] ALCELENERDOB: Community [address] [id number] [id number]: MEDICAREPolicy Repository [phone] Number: -4 () [id number] Date: [facility] [place] [address]YN: 09/25/2017 Secondary NOT GIVENUNK [place] Insurance:SELF PAY [facility] Number: Effective Repository Date:2017-09-07 08/24/2017 ERNESTO Marshall Primary ERNESTO Phelps [id number] TR Insurance:[place] ALCELENERDOB: Community [facility] [id number] [id number]: MEDICAREPolicy Repository [phone] Number: -4 () [id number] Date: SHERON SANTANA [address]MP: 08/24/2017 Secondary NOT GIVENUNK [place] Insurance:SELF PAY [facility] Number: Effective Repository Date:2017-08-24
== END ==
PROVIDERS: Family Provider Family Medicine; PCP Family Medicine; Visit Provider Family Medicine
DX: N18.4 Chronic kidney disease, stage 4 (severe) (principal); D64.9 Anemia, unspecified; R30.0 Dysuria
CPT/HCPCS: 36415; 80048; 81001; 82728; 83540; 85025; 87086; 87088; 87186

== ENCOUNTER → 2018-06-17 18:15 | Outpatient (CLI) | payer MEDICARE, SELFPAY | PROVIDERS: Family Provider Family Medicine; PCP Family Medicine; Referring Provider Nurse Practitioner Adult Health; Visit Provider Nurse Practitioner Adult Health | DX: R82.998 Other abnormal findings in urine (principal) | CPT/HCPCS: 87086; 87088; 87186 ==

== ENCOUNTER → 2018-07-05 11:58 | Outpatient (CLI) | payer MEDICARE, SELFPAY ==
[2018-07-05 15:34] LABS: Color, Urine Straw (Yellow); Glucose, Dipstick Normal (Normal); Ketone-Dipstick Negative (Negative); Leukocyte Esterase-Dipstick 500 /ul (Negative); Nitrite-Dipstick Negative (Negative); Occult Blood-Urine 150 /ul (Negative); Protein-Dipstick 30 mg/dl (Negative); Urine Bilirubin Dipstick Negative (Negative); Urine Clarity Cloudy (Clear); Urine Urobilinogen Normal (Normal); Urine pH 6.5 (5.0 - 8.0)
[2018-07-05 15:39] LABS: Anion Gap 13 (5-15); BUN 32 mg/dL (7-18); BUN/Creat Ratio 13.4 RATIO (10-20); Calcium,Total 9.8 mg/dL (8.5-10.1); Chloride 108 mmol/L (98-107); Creatinine, Serum 2.38 mg/dL (0.55-1.02); EST Glomerular Filtration Rate 21 mL/min (>60); Est Glom Filt Rate - Afr Amer 26 mL/min (>60); Glucose 83 mg/dL (74-106); Potassium 3.6 mmol/L (3.5-5.1); Sodium Level 143 mmol/L (136-145)
== END ==
PROVIDERS: Family Provider Family Medicine; PCP Family Medicine; Visit Provider Family Medicine
DX: N39.0 Urinary tract infection, site not specified (principal); N13.70 Vesicoureteral-reflux, unspecified; N13.30 Unspecified hydronephrosis; N18.4 Chronic kidney disease, stage 4 (severe)
CPT/HCPCS: 36415; 80048; 81002; 87086; 87088; 87186

== ENCOUNTER → 2018-08-03 15:27 | Outpatient (CLI) | payer MEDICARE, SELFPAY ==
[2018-08-03 17:03] LABS: Anion Gap 10 (5-15); BUN 34 mg/dL (7-18); BUN/Creat Ratio 15.5 RATIO (10-20); Calcium,Total 9.6 mg/dL (8.5-10.1); Chloride 112 mmol/L (98-107); Creatinine, Serum 2.19 mg/dL (0.55-1.02); EST Glomerular Filtration Rate 23 mL/min (>60); Est Glom Filt Rate - Afr Amer 28 mL/min (>60); Glucose 94 mg/dL (74-106); Potassium 4.6 mmol/L (3.5-5.1); Sodium Level 143 mmol/L (136-145)
== END ==
PROVIDERS: Family Provider Family Medicine; PCP Family Medicine; Referring Provider Urology; Visit Provider Urology
DX: N13.30 Unspecified hydronephrosis (principal); R31.9 Hematuria, unspecified
CPT/HCPCS: 36415; 80048; 87086; 87088

== ENCOUNTER 2018-08-25 12:34 | Day surgery (SDC) | payer MEDICARE, SELFPAY ==
--- NOTE | 2018-08-24 16:06 | HP.PCM_ITS ---
History and Physical Date of Admission: 08/25/18 I have hydronephrosis. HPI: ERNESTO KATZ is a 77 year-old female established patient who is here for hydronephrosis. The problem is on both sides. She had the following x-rays done: CT Scan. She is currently doing well. She has not had kidney surgery. She has had a stent placed in her kidney. She has not received radiation therapy. treated for UTI CC/HPI: 77 yo female with h/o chronic b/l hydronephrosis etiology unclear but managed with b/l stents gets occ UTIs ALLERGIES: Lisinopril Sulfa MEDICATIONS: Amiodarone Hcl Aspir 81 Atorvastatin Calcium Levothyroxine Sodium Methenamine Hippurate 1 gram tablet 1 tablet PO Q HS take with vitamin C 1000 mg for UTI prevention Metoprolol Tartrate 25 mg tablet Plavix Tylenol Arthritis PSH: Catheterize For Residual - 10/28/2016 Cysto Remove Stent FB Sim, Left - 09/25/2017, Right - 09/25/2017, 10/15/2016 Cysto Uretero Balloon Dil Strict - 2016 Cystoscopy Insert Stent - 02/10/2018, Bilateral - 05/15/2017, Left - 01/23/2017, Right - 01/23/2017, 2016 Cystoscopy Retrogrades - 02/10/2018, 10/15/2016 Cystoscopy Ureteroscopy - 02/10/2018 Radiation Notes: Has not had a colonoscopy NON- PSH: Cataract Surgery Heart Surgery (Unspecified) Patient documented to have received pneumococcal vaccination Pneumococcal Vaccine Admin PTCA - 2008 PMH: Acute cystitis with hematuria - 06/16/2018 Personal history of urinary (tract) infections (Stable) - 03/25/2018 Cystocele, midline - 01/21/2018 Acute cystitis without hematuria - 08/24/2017, - 2017 Urinary tract infection, site not specified - 01/22/2017 Feeling of incomplete bladder emptying - 12/22/2016 Flaccid neuropathic bladder, 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 Essential (primary) hypertension Heart disease, unspecified Unspecified osteoarthritis, unspecified site Immunizations: None FAMILY HISTORY: Heart Disease - Mother Strokes - Mother SOCIAL HISTORY: Marital Status: Preferred Language: Sami; Ethnicity: Not Or ; Race: White Current Smoking Status: Patient has never smoked. Tobacco Use Assessment Completed: Used Smokeless in last 30 days? Smoking cessation counseling was provided. Does not use smokeless tobacco. Does drink. Does not use drugs. Drinks 2 caffeinated drinks per day. Has had a blood transfusion. REVIEW OF SYSTEMS: Constitutional: Patient denies fever and chills. Gastrointestinal: Patient denies abdominal pain, nausea/vomiting, and change in bowels. Genitourinary: Patient reports frequent urination, get up at night to void, and frequent urinary tract infections. Patient denies urinary retention, leakage of urine, blood in urine, history of stones, difficulty starting stream, weak stream, and bedwetting. Musculoskeletal: Patient denies sore muscles and back pain. Notes: Updated from previous visit 06/16/2018 with review from patient as noted above. VITAL SIGNS: 08/03/2018 02:49 PM Weight 140 lb / 63.5 kg Height 63 in / 160.02 cm BP 126/62 mmHg BMI 24.8 kg/m? - BMI Counseling was provided. PHYSICAL EXAMINATION: Bladder: Normal to palpation, no tenderness, no mass, normal size. MULTI-SYSTEM PHYSICAL EXAMINATION: Constitutional: Well-nourished. No physical deformities. Normally developed. Good grooming. Neck: Neck symmetrical, not swollen. Normal tracheal position. Respiratory: No labored breathing, no use of accessory muscles. Lymphatic: No enlargement of neck, axillae, groin. Skin: No paleness, no jaundice, no cyanosis. No lesion, no ulcer, no rash. Neurologic / Psychiatric: Oriented to time, oriented to place, oriented to person. No depression, no anxiety, no agitation. Gastrointestinal: No mass, no tenderness, no rigidity, non obese abdomen. Ears, Nose, Mouth, and Throat: Left ear no scars, no lesions, no masses. Right ear no scars, no lesions, no masses. Nose no scars, no lesions, no masses. Normal hearing. Normal lips. 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 also referral to nephrology b/l chronic renal insufficiency.
[2018-08-25 13:20] VITALS: BP 154/66; PULSE 65; RESP 18; TEMP 37; O2SAT 97; BMI 24.2
[2018-08-25] MEDS: Cefazolin 2 GM in 0.9% Normal Saline 100 ML IV (14:28)
--- NOTE | 2018-08-25 14:56 | DCINST_ITS ---
Discharge Diet: Light diet - advance as tolerated Discharge Activity: Return to Normal Activity Allergies/Adverse Reactions: Allergies lisinopril Allergy (Verified 08/10/18 15:25) Hives Sulfa (Sulfonamide Antibiotics) Allergy (Verified 08/10/18 15:25) Hives Medications to take at Discharge Acetaminophen [Tylenol Arthritis] 1,200 mg PO TID 05/01/16 Aspirin [Aspirin, Baby] 81 mg PO DAILY 05/01/16 metoprolol tartrate 25 mg tablet 25 mg PO BID #180 tab 11/26/17 atorvastatin 10 mg tablet 10 mg PO QHS #90 tab 12/21/17 clopidogrel 75 mg tablet 75 mg PO DAILY #90 tab 12/21/17 amiodarone 200 mg tablet 100 mg PO QDAY tab 01/01/18 Levothyroxine [Synthroid] 75 mcg PO DAILY 02/03/18 Primary Care Physician: Brett Flores DO [Primary Care Provider] - Test Results: Test results from this visit will be discussed in further detail at your follow- up appointment, if applicable. Please Follow Up With: Simone Garcia MD When: in 2 weeks, please call to make an appointment.
--- NOTE | 2018-08-25 14:56 | PCM.OPRPT ---
Report of Operation Date of Procedure: 08/25/18 Pre-Operative Diagnosis: Bilateral hydronephrosis chronic, chronic bilateral stents, chronic renal insufficiency. Post-Operative Diagnosis: Same Surgery/Procedure Performed:: Cystoscopy, bilateral retrograde Polygram, bilateral stent placement. Description of Surgical Findings:: 77-year-old female who has bilateral hydronephrosis is chronic in nature this is been managed with bilateral stents her creatinine has been stable about 2.1 she now needs a new stent as the current stents are about over 6 months old and cannot function anymore. 77-year-old female taken back to the operating room after smooth induction of anesthesia she was placed in dorsolithotomy position the urethra and vaginal area were prepped and draped in usual sterile fashion. I then went into the bladder with a 21 [place] Konger rigid cystourethroscope. Grabbed the existing stent from the left side pulled out the meatus advanced a wire through could get the wire all the way through The stent tried again is able to get the wire up the tip of the pump Pollack catheter performed a retrograde pyelogram and then placed a wire up in the left side. Went to the right side grabbed the existing stent pulled the stent all the way gravity wire and put the wire up through the ureteral orifice all the way up in the right side and over the over the wire then I placed a stent in the right side retrograde Polygram again confirmed wire position of the stent in good position I then drained the bladder both stents were changed patient anesthetic was reversed and plan to see her in the office for a few weeks for checkup. Type of Anesthesia:: General Drains: 6 fr x 26 cm - Admit VTE Documentation VTE Present on Admission: No VTE Mechan Device Prophylaxis: SCD's
--- NOTE | 2018-08-25 15:00 | OP.PCM_ITS ---
Report of Operation Date of Procedure: 08/25/18 Pre-Operative Diagnosis: Bilateral hydronephrosis chronic, chronic bilateral stents, chronic renal insufficiency. Post-Operative Diagnosis: Same Surgery/Procedure Performed:: Cystoscopy, bilateral retrograde Polygram, bilate ral stent placement. Description of Surgical Findings:: 77-year-old female who has bilateral hydronephrosis is chronic in nature this is been managed with bilateral stents her creatinine has been stable about 2.1 she now needs a new stent as the current stents are about over 6 months old and cannot function anymore. 77-year-old female taken back to the operating room after smooth induction of anesthesia she was placed in dorsolithotomy position the urethra and vaginal area were prepped and draped in usual sterile fashion. I then went into the bladder with a 21 Korean rigid cystourethroscope. Grabbed the existing stent from the left side pulled out the meatus advanced a wire through could get the wire all the way through The stent tried again is able to get the wire up the tip of the pump Pollack catheter performed a retrograde pyelogram and then placed a wire up in the left side. Went to the right side grabbed the existing stent pulled the stent all the way gravity wire and put the wire up through the ureteral orifice all the way up in the right side and over the over the wire then I placed a stent in the right side retrograde Polygram again confirmed wire position of the stent in good position I then drained the bladder both stents were changed patient anesthetic was reversed and plan to see her in the office for a few weeks for checkup. Type of Anesthesia:: General Drains: 6 fr x 26 cm - Admit VTE Documentation VTE Present on Admission: No VTE Mechan Device Prophylaxis: SCD's
[2018-08-25 15:05] VITALS: BP 147/72; BP 154/66; PULSE 63; RESP 16; TEMP 36.4; O2SAT 98
[2018-08-25 15:17] VITALS: BP 154/66; BP 154/72; PULSE 64; RESP 16; O2SAT 95
[2018-08-25 15:31] VITALS: BP 154/66; BP 164/72; PULSE 63; RESP 17; TEMP 36.2; O2SAT 96
[2018-08-25 15:58] VITALS: BP 154/66
== END 2018-08-25 16:01 | disposition home or self-care (01) ==
LOC: SDC 12:34 → AC 12:35
PROVIDERS: Family Provider Family Medicine; PCP Family Medicine; Referring Provider Urology; Visit Provider Urology
PROC: (CPT 52005; principal; 2018-08-25 14:40)
DX: N13.30 Unspecified hydronephrosis (principal); I25.10 Atherosclerotic heart disease of native coronary artery without angina pectoris; E78.00 Pure hypercholesterolemia, unspecified; I13.10 Hypertensive heart and chronic kidney disease without heart failure, with stage 1 through stage 4 chronic kidney disease, or unspecified chronic kidney disease; N18.9 Chronic kidney disease, unspecified; I48.0 Paroxysmal atrial fibrillation; M19.90 Unspecified osteoarthritis, unspecified site; Z95.5 Presence of coronary angioplasty implant and graft; Z87.440 Personal history of urinary (tract) infections; Z79.82 Long term (current) use of aspirin; Z79.899 Other long term (current) drug therapy; Z79.02 Long term (current) use of antithrombotics/antiplatelets
CPT/HCPCS: 52005; 52332; 76000; J7120; C1769; C2617; J2405

== ENCOUNTER → 2018-09-01 14:46 | Outpatient (CLI) | payer MEDICARE, SELFPAY ==
[2018-08-25 13:20] VITALS: BMI 24.2
== END ==
PROVIDERS: Family Provider Family Medicine; PCP Family Medicine; Visit Provider Internal Medicine Nephrology
DX: N39.0 Urinary tract infection, site not specified (principal)
CPT/HCPCS: 87077; 87086; 87088; 87186

== ENCOUNTER → 2018-09-06 09:25 | Outpatient (CLI) | payer MEDICARE, SELFPAY ==
[2018-08-25 13:20] VITALS: BMI 24.2
--- NOTE | 2018-09-06 09:30 | US_ITS ---
STUDY: RENAL ULTRASOUND - COMPLETE REASON FOR EXAM: Female, 77 years old. Chronic kidney disease TECHNIQUE: Ultrasound evaluation of the kidneys was performed with real-time and static garcia-scale imaging. COMPARISON: None. FINDINGS: RIGHT KIDNEY: Normal location of the right kidney, which is normal in size. The right kidney measures 10.9 x 5.6 x 4.4 cm. There is mild renal cortical thinning. The renal cortex measures 0.9 cm. There is no right renal mass or cyst. There are no right renal calculi. Moderate to severe right-sided hydronephrosis. Ureteral stent is in place. DISTAL RIGHT URETER: There is non-visualization of the distal right ureter. There is no demonstrated right ureterovesical junction calculus. There is no demonstrated right ureteral jet. LEFT KIDNEY: Normal location of the left kidney, which is normal in size. The left kidney measures 10.7 x 5.0 x 4.2 cm. There is renal cortical thinning. The renal cortex measures 0.6 cm. There is no left renal mass or cyst. There are no left renal calculi. There is moderate to severe left-sided hydronephrosis. Ureteral stent is in place. DISTAL LEFT URETER: There is non-visualization of the distal left ureter. There is no demonstrated left ureterovesical junction calculus. There is no demonstrated left ureteral jet. BLADDER: The distended urinary bladder has a volume of 125 ml. There is diffuse thickening of the urinary bladder wall measuring up to 6.7 mm. There is no demonstrated mass within the urinary bladder. There are no demonstrated bladder calculi. US/Kidney and Bladder IMPRESSION: 1. Moderate to severe bilateral hydronephrosis with bilateral ureteral stents in place, suggesting stent obstruction. 2. Bilateral renal cortical thinning Electronically Signed: Martin Sibley MD at 5:00 EDT Tel , Service support ,
== END ==
PROVIDERS: Family Provider Family Medicine; PCP Family Medicine; Referring Provider Internal Medicine Nephrology; Visit Provider Internal Medicine Nephrology
DX: N18.4 Chronic kidney disease, stage 4 (severe) (principal)
CPT/HCPCS: 76770

== ENCOUNTER → 2018-09-09 17:00 | Outpatient (CLI) | payer MEDICARE, SELFPAY ==
[2018-08-25 13:20] VITALS: BMI 24.2
== END ==
PROVIDERS: Family Provider Family Medicine; PCP Family Medicine; Referring Provider Urology; Visit Provider Urology
DX: R31.9 Hematuria, unspecified (principal)
CPT/HCPCS: 87086; 87088; 87186

== ENCOUNTER → 2018-09-28 | Outpatient (CLI) | payer MEDICARE, SELFPAY ==
[2018-09-28 11:19] LABS: Hematocrit 29.5 % (37-47); Hemoglobin 9.1 g/dl (12.0-15.0); Mean Corp Hgb Conc 30.8 g/gl (32-36); Mean Corpuscular Volume 90.8 fL (81-99); Mean Platelet Vol. 8.8 fl (6.2-12.0); Platelet Count 242 K/mm3 (150-450); RBC Distribution Width CV 15.4 % (11.6-14.6); RBC Distribution Width SD 51.1 fl (35.1-43.9); Red Blood Count 3.25 M/mm3 (4.2-5.4); White Blood Count 6.9 K/mm3 (4.4-11.0)
[2018-09-28 11:20] LABS: 24HR. UA Prot. Total Volume 1875 mL; Urine Protein (24 Hour) 39.2 mg/dL (<11.9)
[2018-09-28 11:21] LABS: Scan Indicated on CBC? Y/N NO
[2018-09-28 11:56] LABS: Albumin, Serum 3.4 g/dL (3.2-5.0); BUN 37 mg/dL (7-18); BUN/Creat Ratio 14.7 RATIO (10-20); Calcium,Total 9.2 mg/dL (8.5-10.1); Chloride 110 mmol/L (98-107); Creatinine, Serum 2.52 mg/dL (0.55-1.02); EST Glomerular Filtration Rate 20 mL/min (>60); Est Glom Filt Rate - Afr Amer 24 mL/min (>60); Glucose 86 mg/dL (74-106); Phosphorus 2.9 mg/dL (2.5-4.9); Potassium 4.2 mmol/L (3.5-5.1); Sodium Level 143 mmol/L (136-145)
[2018-09-28 11:58] LABS: Creat.Clear Total Volume 1875 mL; Creatinine Clearance 23 ml/min (100-200); Creatinine Serum Creat 2.5 mg/dL (0.6-1.0); Creatinine Urine 44.1 mg/dL (NO RANGE EST.); EST Glomerular Filtration Rate 20 mL/min (>60); Est Glom Filt Rate - Afr Amer 24 mL/min (>60)
[2018-09-28 12:15] LABS: Vitamin D,25 Hydroxy 8.2 ng/mL (29.95-100.01)
[2018-09-28 12:16] LABS: PTHIN 325.3 pg/mL (18.4-80.1)
== END | disposition home or self-care (01) ==
LOC: LAB.FUTURE 10:41
PROVIDERS: Family Provider Family Medicine; PCP Family Medicine; Referring Provider Internal Medicine Nephrology; Visit Provider Internal Medicine Nephrology
DX: N18.4 Chronic kidney disease, stage 4 (severe) (principal); N39.0 Urinary tract infection, site not specified
CPT/HCPCS: 36415; 80069; 82306; 82575; 83970; 84156; 85027; 87077; 87086; 87088; 87186

== ENCOUNTER 2018-11-04 10:40 | Outpatient (RCR) | payer MEDICARE, SELFPAY ==
[2018-11-04 11:42] LABS: Hematocrit 30.2 % (37-47); Hemoglobin 9.2 g/dl (12.0-15.0); Mean Corp Hgb Conc 30.5 g/gl (32-36); Mean Corpuscular Hgb 27.3 pg (27.0-32.0); Mean Corpuscular Volume 89.6 fL (81-99); Mean Platelet Vol. 8.7 fl (6.2-12.0); Platelet Count 373 K/mm3 (150-450); RBC Distribution Width CV 15.6 % (11.6-14.6); Red Blood Count 3.37 M/mm3 (4.2-5.4); Scan Indicated on CBC? Y/N NO; White Blood Count 9.1 K/mm3 (4.4-11.0)
[2018-11-04 12:10] LABS: Ferritin 75 ng/mL (8-252); Iron 17 ug/dL (50-170); Iron Binding Capacity,Total 275 ug/dL (250-450)
[2018-11-04 12:15] LABS: PTHIN 248.1 pg/mL (18.4-80.1); Vitamin D,25 Hydroxy 27.6 ng/mL (29.95-100.01)
== END 2018-11-05 23:59 ==
LOC: LAB.FUTURE 10:40
PROVIDERS: Family Provider Family Medicine; PCP Family Medicine; Referring Provider Internal Medicine Nephrology; Visit Provider Internal Medicine Nephrology
DX: N18.4 Chronic kidney disease, stage 4 (severe) (principal); D63.8 Anemia in other chronic diseases classified elsewhere; N25.81 Secondary hyperparathyroidism of renal origin
CPT/HCPCS: 36415; 82306; 82728; 83540; 83550; 83970; 85027

== ENCOUNTER → 2019-01-03 | Outpatient (CLI) | payer MEDICARE, SELFPAY ==
[2019-01-03 11:21] LABS: Hemoglobin 8.3 g/dL (12.0-15.0); Mean Corp Hgb Conc 30.7 g/dL (32-36); Mean Corpuscular Hgb 27.4 pg (27.0-32.0); Mean Corpuscular Volume 89.1 fL (81-99); Platelet Count 357 K/mm3 (150-450); RBC Distribution Width CV 15.5 % (11.6-14.6); RBC Distribution Width SD 50.2 fl (35.1-43.9); Red Blood Count 3.03 M/mm3 (4.2-5.4); White Blood Count 9.8 K/mm3 (4.4-11.0)
[2019-01-03 11:39] LABS: Albumin, Serum 2.7 g/dL (3.2-5.0); BUN 47 mg/dL (7-18); BUN/Creat Ratio 13.2 RATIO (10-20); Calcium,Total 10.3 mg/dL (8.5-10.1); Chloride 111 mmol/L (98-107); Creatinine, Serum 3.57 mg/dL (0.55-1.02); EST Glomerular Filtration Rate 13 mL/min (>60); Est Glom Filt Rate - Afr Amer 16 mL/min (>60); Glucose 99 mg/dL (74-106); Phosphorus 2.6 mg/dL (2.5-4.9); Potassium 4.5 mmol/L (3.5-5.1); Sodium Level 138 mmol/L (136-145)
[2019-01-03 19:35] LABS: PTHIN 110.3 pg/mL (18.4-80.1)
== END | disposition home or self-care (01) ==
LOC: LAB 10:49
PROVIDERS: Family Provider Family Medicine; PCP Family Medicine; Referring Provider Internal Medicine Nephrology; Visit Provider Internal Medicine Nephrology
DX: N18.4 Chronic kidney disease, stage 4 (severe) (principal); D63.8 Anemia in other chronic diseases classified elsewhere; N25.81 Secondary hyperparathyroidism of renal origin
CPT/HCPCS: 36415; 80069; 83970; 85027

== ENCOUNTER → 2019-01-07 | Outpatient (CLI) | payer MEDICARE, SELFPAY | END | disposition home or self-care (01) | LOC: LAB 09:58 | PROVIDERS: Family Provider Family Medicine; PCP Family Medicine; Referring Provider Urology; Visit Provider Urology | DX: N13.1 Hydronephrosis with ureteral stricture, not elsewhere classified (principal); N30.01 Acute cystitis with hematuria | CPT/HCPCS: 87086; 87088; 87186 ==

== ENCOUNTER 2019-01-12 13:04 | Day surgery (SDC) | payer MEDICARE, SELFPAY ==
[2019-01-12 13:19] VITALS: BP 145/69; PULSE 65; RESP 16; TEMP 36.7; O2SAT 100; BMI 24.6
--- NOTE | 2019-01-12 15:52 | PCM.HP.BLA ---
History and Physical Date of Admission: 01/12/19 78 yo female with chronic stents bilateral stent in place took cipro for 10 days now on daily ampicillin urine looks infected will send for culture. ALLERGIES: Lisinopril Sulfa MEDICATIONS: Amiodarone Hcl Aspir 81 Atorvastatin Calcium Levothyroxine Sodium Metoprolol Tartrate 25 mg tablet Plavix Tylenol Arthritis PSH: Catheterize For Residual - 2016 Cysto Remove Stent FB Sim, Left - 09/25/2017, Right - 09/25/2017, 2016 Cysto Uretero Balloon Dil Strict - 2017 Cystoscopy Insert Stent - 08/25/2018, 02/10/2018, Bilateral - 05/15/2017, Right - 01/23/2017, Left - 01/23/2017, 2016 Cystoscopy Retrogrades - 08/25/2018, 02/10/2018, 2016 Cystoscopy Ureteroscopy - 02/10/2018 Radiation Notes: Has not had a colonoscopy NON- PSH: Cataract Surgery Heart Surgery (Unspecified) Patient documented to have received pneumococcal vaccination Pneumococcal Vaccine Admin PTCA - 2008 PMH: Hydronephrosis w ureteral stricture, NEC - 08/03/2018 Other chronic cystitis with hematuria - 08/03/2018 Acute cystitis with hematuria - 06/16/2018 Personal history of urinary (tract) infections (Stable) - 03/25/2018 Cystocele, midline - 01/21/2018 Acute cystitis without hematuria - 08/24/2017, - 2017 Urinary tract infection, site not specified - 01/22/2017 Feeling of incomplete bladder emptying - 2016 Flaccid neuropathic bladder, 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 Essential (primary) hypertension Heart disease, unspecified Unspecified osteoarthritis, unspecified site Immunizations: None FAMILY HISTORY: Heart Disease - Mother Strokes - Mother SOCIAL HISTORY: Marital Status: Preferred Language: Bermudian; Ethnicity: Not Or ; Race: White Current Smoking Status: Patient has never smoked. Tobacco Use Assessment Completed: Used Smokeless in last 30 days? Smoking cessation counseling was provided. Does not use smokeless tobacco. Does drink. Does not use drugs. Drinks 2 caffeinated drinks per day. Has had a blood transfusion. REVIEW OF SYSTEMS: Constitutional: Patient denies fever and chills. Genitourinary: Patient reports frequent urination, get up at night to void, and frequent urinary tract infections. Patient denies urinary retention, leakage of urine, blood in urine, history of stones, difficulty starting stream, weak stream, and bedwetting. Notes: Reviewed previous review of systems 09/09/2018. No changes. VITAL SIGNS: 01/03/2019 11:18 AM Weight 140 lb / 63.5 kg Height 62 in / 157.48 cm BP 130/64 mmHg BMI 25.6 kg/m? - BMI Counseling was provided. PHYSICAL EXAMINATION: Bladder: Normal to palpation, no tenderness, no mass, normal size. MULTI-SYSTEM PHYSICAL EXAMINATION: Constitutional: Well-nourished. No physical deformities. Normally developed. Good grooming. Neck: Neck symmetrical, not swollen. Normal tracheal position. Respiratory: No labored breathing, no use of accessory muscles. Lymphatic: No enlargement of neck, axillae, groin. Skin: No paleness, no jaundice, no cyanosis. No lesion, no ulcer, no rash. Neurologic / Psychiatric: Oriented to time, oriented to place, oriented to person. No depression, no anxiety, no agitation. Gastrointestinal: No mass, no tenderness, no rigidity, non obese abdomen. Ears, Nose, Mouth, and Throat: Left ear no scars, no lesions, no masses. Right ear no scars, no lesions, no masses. Nose no scars, no lesions, no masses. Normal hearing. Normal lips. PAST DATA REVIEWED: Source Of History: Patient Records Review: Previous Patient Records Urine Test Review: Urinalysis PROCEDURES: Bladder Scan - 51489 Notes: Bladder scan was used to measure a bladder volume residual. Scanned Volume: 170 cc Urinalysis - 22557 Dipstick Dipstick Cont'd Specimen: Voided Blood: about 50 Appearance: Clear pH: 5.0 Color: Yellow Protein: Neg Glucose: Normal Urobilinogen: Neg Bilirubin: Neg Nitrites: Neg Ketones: Neg Leukocyte Esterase: 2+ ASSESSMENT: ICD-10 Details 1 : Acute cystitis with hematuria - N30.01 2 Hydronephrosis w ureteral stricture, NEC - N13.1 3 Feeling of incomplete bladder emptying - R39.14 Stable PLAN: Document Letter(s): Created for Patient: Clinical Summary Notes: send urine for culture plan for stent changes treat UTI before next change.
[2019-01-12] MEDS: Cefazolin 2 GM in 0.9% Normal Saline 100 ML IV (16:13)
--- NOTE | 2019-01-12 16:46 | DCINST_ITS ---
Discharge Diet: Light diet - advance as tolerated Discharge Activity: Return to Normal Activity Call your doctor if your incision/area has: Continuous Slow Oozing Call your doctor if you observe: Fever of 101 or Higher Suture Line Care: Avoid Pulling/Pushing, Avoid Pinching/Bending Allergies/Adverse Reactions: Allergies lisinopril Allergy (Verified 01/12/19 13:13) Hives Sulfa (Sulfonamide Antibiotics) Allergy (Verified 01/12/19 13:13) Hives Medications to take at Discharge Acetaminophen [Tylenol Arthritis] 1,200 mg PO TID 05/01/16 Aspirin [Aspirin, Baby] 81 mg PO DAILY 05/01/16 amiodarone 200 mg tablet 100 mg PO QDAY tab 01/01/18 Levothyroxine [Synthroid] 75 mcg PO DAILY 02/03/18 clopidogrel 75 mg tablet See Rx Instructions .ROUTE .COMPLEX #90 tablet 12/13/18 atorvastatin 10 mg tablet 10 mg PO DAILY #90 tab 12/29/18 metoprolol tartrate 25 mg tablet 25 mg PO BID #180 tab 12/29/18 Ferrous Sulfate 325 mg PO BIDCM 01/11/19 Primary Care Physician: Brett Flores DO [Primary Care Provider] - Test Results: Test results from this visit will be discussed in further detail at your follow- up appointment, if applicable. Please Follow Up With: Simone Garcia MD When: please call to make an appointment.
--- NOTE | 2019-01-12 16:48 | PCM.OPRPT ---
Report of Operation Date of Procedure: 01/12/19 Pre-Operative Diagnosis: Bilateral hydronephrosis chronic renal insufficiency Post-Operative Diagnosis: The same Surgery/Procedure Performed:: Cystoscopy right stent change right retrograde pyelogram interpretation of fluoroscopic images, left stent change left retrograde pyelogram interpretation fluoroscopic images Description of Surgical Findings:: 78-year-old female was taken back to the operating room after smooth induction of anesthesia went into the bladder drained the bladder had a fairly purulent urine looking urine within the bladder I then grabbed the existing stent on the right side pulled out the meatus advance a wire up the stent advance a Pollack catheter over the wire pulled out the wire did a retrograde pyelogram that was wire back into over the Pollick catheter and of the Pollick catheter I then backloaded the cystoscope and then advanced a stent in the right kidney and then the stent coiled in the proper position on the right side then went the left side grabbed the stent pulled the stent out the meatus rent advance a wire up in the left side advance a Pollack catheter over the wire then over the Pollick catheter the retrograde pyelogram and then through the Pollick catheter advanced a wire once a wires in place advanced stent in the left side once the stent was in good position and pulled the wire the stent coiled in the bladder kidney good position I drained the bladder and the patient anesthetic was reversed she was taken back to PACU in good condition. Type of Anesthesia:: General Drains: stent changed - Admit VTE Documentation VTE Present on Admission: No
[2019-01-12 16:55] VITALS: BP 139/60; BP 145/69; PULSE 60; RESP 16; TEMP 36.7; O2SAT 97
[2019-01-12 17:00] VITALS: BP 145/69; BP 153/75; PULSE 67; RESP 16; O2SAT 95
[2019-01-12 17:16] VITALS: BP 145/69; BP 159/68; PULSE 59; RESP 16; TEMP 36.2; O2SAT 97
[2019-01-12 17:49] VITALS: BP 145/69
== END 2019-01-12 18:00 | disposition home or self-care (01) ==
LOC: SDC 13:04 → AC 13:05
PROVIDERS: Family Provider Family Medicine; PCP Family Medicine; Referring Provider Urology; Visit Provider Urology
DX: N30.01 Acute cystitis with hematuria (principal); N13.1 Hydronephrosis with ureteral stricture, not elsewhere classified; R39.14 Feeling of incomplete bladder emptying; N18.9 Chronic kidney disease, unspecified; I12.9 Hypertensive chronic kidney disease with stage 1 through stage 4 chronic kidney disease, or unspecified chronic kidney disease; I25.10 Atherosclerotic heart disease of native coronary artery without angina pectoris; E78.00 Pure hypercholesterolemia, unspecified; Z87.440 Personal history of urinary (tract) infections; I48.91 Unspecified atrial fibrillation
CPT/HCPCS: 52005; 52332; 76000; J7120; C1769; C2617; J2405

== ENCOUNTER → 2019-01-14 09:35 | Outpatient (CLI) | payer MEDICARE, SELFPAY ==
[2019-01-12 13:19] VITALS: BMI 24.6
[2019-01-14 10:19] LABS: Hematocrit 27.5 % (37-47); Hemoglobin 8.5 g/dL (12.0-15.0); Mean Corp Hgb Conc 30.9 g/dL (32-36); Mean Corpuscular Hgb 27.7 pg (27.0-32.0); Mean Corpuscular Volume 89.6 fL (81-99); Mean Platelet Vol. 9.1 fl (6.2-12.0); Platelet Count 389 K/mm3 (150-450); RBC Distribution Width CV 17.1 % (11.6-14.6); RBC Distribution Width SD 54.8 fl (35.1-43.9); Red Blood Count 3.07 M/mm3 (4.2-5.4); White Blood Count 13.3 K/mm3 (4.4-11.0)
[2019-01-14 10:51] LABS: Albumin, Serum 3.2 g/dL (3.2-5.0); BUN 53 mg/dL (7-18); Calcium,Total 9.7 mg/dL (8.5-10.1); Chloride 108 mmol/L (98-107); Creatinine, Serum 3.54 mg/dL (0.55-1.02); EST Glomerular Filtration Rate 13 mL/min (>60); Est Glom Filt Rate - Afr Amer 16 mL/min (>60); Ferritin 79 ng/mL (8-252); Glucose 111 mg/dL (74-106); Iron 73 ug/dL (50-170); Iron Binding Capacity,Total 294 ug/dL (250-450); Phosphorus 3.1 mg/dL (2.5-4.9); Sodium Level 139 mmol/L (136-145)
== END ==
PROVIDERS: Family Provider Family Medicine; PCP Family Medicine; Referring Provider Internal Medicine Nephrology; Visit Provider Internal Medicine Nephrology
DX: N18.4 Chronic kidney disease, stage 4 (severe) (principal); D50.9 Iron deficiency anemia, unspecified
CPT/HCPCS: 36415; 80069; 82728; 83540; 83550; 85027

== ENCOUNTER → 2019-02-01 | Outpatient (CLI) | payer MEDICARE, SELFPAY ==
[2019-01-20 10:46] VITALS: BMI 24.6
== END | disposition home or self-care (01) ==
LOC: LABSPEC 17:10
PROVIDERS: Family Provider Family Medicine; PCP Family Medicine; Referring Provider Urology; Visit Provider Urology
DX: R82.998 Other abnormal findings in urine (principal)
CPT/HCPCS: 87086; 87088; 87186

== ENCOUNTER → 2019-02-03 | Outpatient (CLI) | payer MEDICARE, SELFPAY ==
[2019-01-20 10:46] VITALS: BMI 24.6
[2019-02-03 15:18] LABS: BUN 37 mg/dL (7-18); Calcium,Total 9.5 mg/dL (8.5-10.1); Chloride 113 mmol/L (98-107); Creatinine, Serum 2.84 mg/dL (0.55-1.02); EST Glomerular Filtration Rate 17 mL/min (>60); Est Glom Filt Rate - Afr Amer 21 mL/min (>60); Glucose 106 mg/dL (74-106); Phosphorus 2.4 mg/dL (2.5-4.9); Potassium 4.6 mmol/L (3.5-5.1); Sodium Level 145 mmol/L (136-145)
== END | disposition home or self-care (01) ==
LOC: LAB.FUTURE 13:44
PROVIDERS: Family Provider Family Medicine; PCP Family Medicine; Referring Provider Internal Medicine Nephrology; Visit Provider Internal Medicine Nephrology
DX: N18.4 Chronic kidney disease, stage 4 (severe) (principal)
CPT/HCPCS: 36415; 80069

== ENCOUNTER → 2019-02-05 | Outpatient (CLI) | payer MEDICARE, SELFPAY ==
[2019-01-20 10:46] VITALS: BMI 24.6
[2019-02-03 14:18] VITALS: BMI 24.7
--- NOTE | 2019-02-05 06:41 | CT_ITS ---
HISTORY: BILATERAL HYDRONEPHROSIS AND FREQUENT UTI'S. BILATERAL URETERAL STENT PLACEMENT. PRIOR JESSY/BSO ADDITIONAL HISTORY: None provided. TECHNIQUE: CT images were obtained of the abdomen and pelvis without IV contrast. Enteric contrast was not given. Number of images including paperwork: 426. A radiation dose optimization technique was used for this scan. COMPARISON: 01/22/2017 FINDINGS: Evaluation of the abdominopelvic organs is limited in the absence of contrast. LOWER THORAX: No consolidation or pleural effusion. Enlarged heart. Coronary calcification. Blood within the heart less dense than the myocardium suggesting anemia. LIVER: No concerning focal lesion. GALLBLADDER: No radiopaque calculi. BILE DUCTS: No significant biliary dilatation. SPLEEN: Unremarkable. PANCREAS: Unremarkable. ADRENAL GLANDS: Unremarkable. KIDNEYS/URETERS: Mild to moderate bilateral hydronephrosis. Right ureteral stent in place with proximal aspect of the renal pelvis and distal aspect in the bladder. Left ureteral stent appears to have migrated distally with the proximal aspect in the upper pelvic ureter and distal aspect in the bladder. BOWEL: No bowel obstruction. No significant bowel wall thickening. No localized inflammation. Colonic diverticulosis. APPENDIX: No evidence of appendicitis. FREE FLUID: No significant free fluid. FREE AIR: None. LYMPH NODES: No pathologic appearing adenopathy. PERITONEUM, RETROPERITONEUM AND MESENTERY: Otherwise unremarkable. VASCULATURE: Atherosclerotic calcification. Vascular tortuosity. ABDOMINAL WALL: Unremarkable. PELVIS: Mild diffuse wall thickening of the bladder. OSSEOUS AND SOFT TISSUE STRUCTURES: No acute skeletal findings. Degenerative changes. CT/Abdomen/Pelvis without Cont IMPRESSION: 1. Mild to moderate hydronephrosis despite ureteral stents concerning for ureteral stent dysfunction. 2. Bladder wall thickening; correlate for cystitis. Individualized dose optimization techniques were used for this CT. at 0254 Reported and signed by: Mirella Mcdonald MD Electronically Signed: Mirella Mcdonald MD at 2:53 EDT Tel , Service support ,
== END | disposition home or self-care (01) ==
LOC: CT 08:54
PROVIDERS: Family Provider Family Medicine; PCP Family Medicine; Referring Provider Urology; Visit Provider Urology
DX: N13.30 Unspecified hydronephrosis (principal)
CPT/HCPCS: 74176

== ENCOUNTER → 2019-02-24 | Outpatient (CLI) | payer MEDICARE, SELFPAY ==
[2019-02-03 14:18] VITALS: BMI 24.7
[2019-02-24 10:48] LABS: Hematocrit 30.2 % (37-47); Mean Corp Hgb Conc 29.8 g/dL (32-36); Mean Corpuscular Hgb 27.9 pg (27.0-32.0); Mean Corpuscular Volume 93.5 fL (81-99); Mean Platelet Vol. 9.4 fl (6.2-12.0); POSITIVE MORPHOLOGY YES; Platelet Count 262 K/mm3 (150-450); RBC Distribution Width CV 18.8 % (11.6-14.6); RBC Distribution Width SD 65.4 fl (35.1-43.9); Red Blood Count 3.23 M/mm3 (4.2-5.4); White Blood Count 9.8 K/mm3 (4.4-11.0)
[2019-02-24 10:52] LABS: Scan Indicated on CBC? Y/N YES- FLAGS NOTED
[2019-02-24 11:21] LABS: Albumin, Serum 3.2 g/dL (3.2-5.0); BUN 53 mg/dL (7-18); BUN/Creat Ratio 16.5 RATIO (10-20); Calcium,Total 9.6 mg/dL (8.5-10.1); Chloride 113 mmol/L (98-107); Creatinine, Serum 3.21 mg/dL (0.55-1.02); EST Glomerular Filtration Rate 15 mL/min (>60); Est Glom Filt Rate - Afr Amer 18 mL/min (>60); Glucose 91 mg/dL (74-106); Phosphorus 3.1 mg/dL (2.5-4.9); Potassium 4.4 mmol/L (3.5-5.1); Sodium Level 142 mmol/L (136-145)
== END | disposition home or self-care (01) ==
LOC: LAB 10:11
PROVIDERS: Family Provider Family Medicine; PCP Family Medicine; Referring Provider Internal Medicine Nephrology; Visit Provider Internal Medicine Nephrology
DX: N18.4 Chronic kidney disease, stage 4 (severe) (principal); D50.9 Iron deficiency anemia, unspecified
CPT/HCPCS: 36415; 80069; 85027

== ENCOUNTER → 2019-03-07 | Outpatient (CLI) | payer MEDICARE, SELFPAY ==
[2019-02-03 14:18] VITALS: BMI 24.7
--- NOTE | 2019-03-07 10:49 | VDUE_ITS ---
Reason For Study: CKD Stage 4 Right Arm Left Arm Right Cephalic Vein at the wrist measures Left Cephalic Vein at the wrist measures 0.20 x 0.20 cm. 0.08 x 0.07 cm. Right Cephalic Vein in the forearm measures Left Cephalic Vein in the forearm measures 0.22 x 0.23 cm. 0.08 x 0.09 cm. Right Cephalic Vein below antecub measures Left Cephalic Vein below antecub measures 0.26 x 0.27 cm. 0.11 x 0.12 cm. Right Cephalic Vein above antecub measures Left Cephalic Vein above antecub measures 0.09 x 0.10 cm. 0.06 x 0.06 cm. Right Cephalic Vein mid bicep measures 0.07 x Left Cephalic Vein at mid bicep measures 0.09 cm. 0.08 x 0.09 cm. Right cephalic vein not visualized at mid Left Cephalic Vein at the shoulder measures axillary. 0.08 x 0.09 cm. Right Basilic Vein at the origin measures Basilic vein at origin measures 0.35 x 0.37 0.52 x 0.58 cm. cm. Right Basilic Vein mid bicep measures 0.41 x Basilic vein at bicep measures 0.38 x 0.42 0.46 cm. cm. Right Basilic Vein above antecub measures Basilic vein above antecub measures 0.38 x 0.37 x 0.47 cm. 0.41 cm. Rt Brachial artery measures 0.47 x 0.52 cm Lt Brachial artery measures 0.37 x 0.38 cm with a velocity of 95.3 cm/sec. with a velocity of 128.6 cm/sec. Rt Radial artery measures 0.15 x 0.18 cm with Lt Radial artery measures 0.17 x 0.19 cm a velocity of 74.4 cm/sec. with a velocity of 76.9 cm/sec. Interpretation Summary Right upper extremity cephalic vein diminutive in the upper arm Right upper arm basilic vein patent and compressible Left upper extremity cephalic vein diminutive Left upper arm basilic vein patent and compressible Bilateral brachial arteries normal diameter and flow Bilateral radial arteries small. Ordering Physician: Ledy Barrientos Referring Physician: Brett Flores Performed By: Renetta Valiente RVT ?
[2019-03-07 11:29] LABS: Albumin, Serum 2.9 g/dL (3.2-5.0); BUN 41 mg/dL (7-18); BUN/Creat Ratio 11.5 RATIO (10-20); Calcium,Total 9.9 mg/dL (8.5-10.1); Chloride 111 mmol/L (98-107); Creatinine, Serum 3.58 mg/dL (0.55-1.02); EST Glomerular Filtration Rate 13 mL/min (>60); Est Glom Filt Rate - Afr Amer 16 mL/min (>60); Glucose 118 mg/dL (74-106); Phosphorus 2.9 mg/dL (2.5-4.9); Potassium 4.3 mmol/L (3.5-5.1); Sodium Level 139 mmol/L (136-145)
[2019-03-07 11:39] LABS: PTHIN 235.9 pg/mL (18.4-80.1)
[2019-03-07 11:40] LABS: Vitamin D,25 Hydroxy 38.7 ng/mL (29.95-100.01)
== END | disposition home or self-care (01) ==
LOC: CVS 10:22
PROVIDERS: Family Provider Family Medicine; PCP Family Medicine; Referring Provider Internal Medicine Nephrology; Visit Provider Internal Medicine Nephrology
DX: Z01.818 Encounter for other preprocedural examination (principal); N18.4 Chronic kidney disease, stage 4 (severe); N25.81 Secondary hyperparathyroidism of renal origin; Z17.0 Estrogen receptor positive status [ER+]; E56.9 Vitamin deficiency, unspecified; D50.9 Iron deficiency anemia, unspecified
CPT/HCPCS: 36415; 80069; 82306; 83970; 93970; 93971; G0365

== ENCOUNTER → 2019-03-16 | Outpatient (CLI) | payer MEDICARE, SELFPAY ==
[2019-03-10 08:30] VITALS: BMI 24.7
[2019-03-16 11:41] LABS: Albumin, Serum 3.2 g/dL (3.2-5.0); BUN 41 mg/dL (7-18); BUN/Creat Ratio 13.4 RATIO (10-20); Calcium,Total 9.7 mg/dL (8.5-10.1); Chloride 112 mmol/L (98-107); Creatinine, Serum 3.05 mg/dL (0.55-1.02); EST Glomerular Filtration Rate 16 mL/min (>60); Est Glom Filt Rate - Afr Amer 19 mL/min (>60); Glucose 78 mg/dL (74-106); Potassium 4.3 mmol/L (3.5-5.1); Sodium Level 144 mmol/L (136-145)
== END | disposition home or self-care (01) ==
PROVIDERS: Family Provider Family Medicine; PCP Family Medicine; Referring Provider Internal Medicine Nephrology; Visit Provider Internal Medicine Nephrology
DX: N39.0 Urinary tract infection, site not specified (principal); N17.0 Acute kidney failure with tubular necrosis
CPT/HCPCS: 36415; 80069; 87077; 87086; 87088; 87186

== ENCOUNTER 2019-04-11 07:17 | Day surgery (SDC) | payer MEDICARE, SELFPAY ==
[2019-03-10 08:30] VITALS: BMI 24.7
--- NOTE | 2019-04-04 09:14 | HP_ITS ---
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: No Is patient in pain?: No Allergies lisinopril Allergy (Verified 03/10/19 08:25) Hives Sulfa (Sulfonamide Antibiotics) Allergy (Verified 03/10/19 08:25) Hives Medications Aspirin [Aspirin, Baby] 81 mg PO DAILY 05/01/16 [History Confirmed 03/10/19] Levothyroxine [Synthroid] 75 mcg PO DAILY 02/03/18 [History Confirmed 03/10/19] Ferrous Sulfate 325 mg PO BIDCM 01/11/19 [History Confirmed 03/10/19] amiodarone 200 mg tablet 100 mg PO QDAY #45 tab 02/03/19 [Rx Confirmed 03/10/19] amlodipine 10 mg tablet 10 mg PO DAILY #90 tab 02/03/19 [Rx Confirmed 03/10/19] atorvastatin 10 mg tablet 10 mg PO DAILY #90 tab 02/03/19 [Rx Confirmed 03/10/19] clopidogrel 75 mg tablet 75 mg PO DAILY #90 tab 02/03/19 [Rx Confirmed 03/10/19] ergocalciferol (vitamin D2) 50,000 unit capsule 50,000 unit PO QMONTH #3 cap 02/03/19 [History Confirmed 03/10/19] metoprolol tartrate 25 mg tablet 25 mg PO BID #180 tab 02/03/19 [Rx Confirmed 03/10/19] acetaminophen ER 650 mg tablet,extended release 650 mg PO Q12H tab 03/10/19 [History Confirmed 03/10/19] ergocalciferol (vitamin D2) 50,000 unit tablet unit PO MONTHLY tab 03/10/19 [History] [facility] Medical History (Updated 03/10/19 @ 08:54 by Antonio Cheng MD) Chronic renal insufficiency, stage IV (severe) (Chronic) Paroxysmal atrial fibrillation (Chronic) 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) Atherosclerosis of coronary artery of [place] without angina pectoris (Chronic) Essential (primary) hypertension (Chronic) Stenosis of left carotid artery (Chronic) HLD (hyperlipidemia) (Chronic) Chronic renal disease, stage IV (Chronic) Arthritis (Chronic) Normochromic normocytic anemia (Chronic) Acute pyelonephritis (Resolved) Sepsis (Resolved) Surgical History (Updated 02/03/19 @ 06:48 by Lyla Weiss) History of coronary artery stent placement (Resolved 10/09/08) History of left-sided carotid endarterectomy (Resolved) History of total abdominal hysterectomy and bilateral salpingo-oophorectomy (Resolved) History of ureter stent (Resolved) Hx of cataract surgery (Resolved) Family History (Updated 03/10/19 @ 08:24 by Maria Esther Siegel) Mother CVA (cerebral vascular accident) Hypertension Alcoholism Heart disease Father Heart disease Social History (Updated 03/10/19 @ 08:56 by Antonio Cheng MD) Smoking Status: Never smoker alcohol intake: never substance use type: does not use HPI HPI HPI: ERNESTO KATZ, is a 78 F who presents to the office today for HPI HPI Surgical H&P: Yes HPI: ERNESTO KATZ, is a 78 F who presents to the office today for surgical consultation regarding arteriovenous fistula creation for hemodialysis. The patient is referred by Dr. Ledy Barrientos. Her primary care physician is Dr. Brett Flores. The patient has had chronic urinary tract infections. Dr. Garcia intermittent changes in place his urinary stents. The patient is right arm dominant. As of March 07, 2019 BUN is 41 creatinine 3.58 with an estimated GFR of 13. On March 07, 2019 she had bilateral upper extremity vein mapping. Unfortunately the cephalic veins were noted to be diminutive bilaterally particularly diminutive in the left upper extremity. Bilateral basilic veins were felt to be adequate. The patient is right arm dominant. She does have a coronary stent in place. She is on amiodarone and clopidogrel and aspirin in addition to her other medications. ROS General General: Yes fatigue; no weight change, appetite, colon cancer, breast cancer or weakness HEENT HEENT: No difficulty swallowing, eye injury, eye surgery, swollen glands or hoarseness Endo Endocrine: No thyroid disease, diabetes mellitus, thyroid cancer, Hair loss, heat intolerance or cold intolerance Skin Skin: No rash or changing moles Breast Breast: No left breast lump, right breast lump, nipple discharge, breast pain, abnormal mammogram, abnormal US or breast enlargement Musc Musculoskeletal: Yes arthritis; no back problems, rheumatoid arthritis, gout or joint pain Cardio Cardiovascular: Yes high blood pressure and heart stent; no murmur, pacemaker, heart disease, atrial fibrillation, heart attack, palpitations, shortness of breat with exertion or chest pain Psych Psychiatric: No depression, anxiety or hearing voices Resp Respiratory: No shortness of breath, No sleep apnea, No cough, No COPD, No asthma, No emphysema, No wheezing Gastro Gastrointestinal: No abdominal pain, No nausea or vomiting, No diarrhea, Yes constipation, No blood in stool, No acid reflux, No hemorrhoids, No ulcers, No gallbladder problem, Yes black,tarry stools [place] Hematologic: Yes blood thinners, No blood disorders, No bleeding, Yes anemia, No blood clots Neuro Neurologic: No system reviewed and no additional complaints, except as docu, No as per HPI, No abnormal walking, No abnormal hearing, No abnormal movements, No abnormal speech, No behavioral changes, No burning sensations, No confusion, No seizure-like activity, No unsteadiness, No dizziness, No localized weakness, No frequent falls, No headache(s), No lack of coordination, No loss of vision, No memory loss, No numbness, No other visual disturbances, No radiating pain, No restless legs, No sensory deficit, No fainting, No tingling, No tremor(s), No weakness, No other Exam Const General: cooperative, comfortable, no acute distress Nutritional Appearance: average body habitus Orientation: alert, awake, oriented x3 HENMT Head: normal to inspection Chest Chest palpation & inspection: normal inspection of the chest Breast Palpation: No nipple discharge Resp Effort & Inspection: normal respiratory effort Auscultation: clear to auscultation bilaterally Cardio Rate: regular rate Rhythm: regular rhythm Heart Sounds: no murmurs GI Palpation: soft, no hepatosplenomegaly Auscultation: normal bowel sounds Musc Cervical Spine: normal cervical lordosis Neuro Cognition: normal cognition Extrem Other: Left upper extremity: Cephalic vein extraordinarily diminutive. Basilic vein visualized with ultrasound. Appears to be patent and compressible. 2+ left radial pulse. 3+ left brachial pulse. Psych Affect: normal affect Assessment & Plan Problems 1. Chronic renal insufficiency, stage IV (severe) N18.4 Plan 78-year-old female. She claims that she intermittently needs to have ureteral stents placed in change. She claims that she has chronic recurrent infections. I would like to avoid prosthetic catheters either peritoneal or hemodialysis as possible. I proposed for her a stage I left upper arm brachiobasilic arteriovenous hemodialysis fistula creation. In detail I have discussed the technique, benefits, risks and alternatives. No guarantees of success have been offered. The patient is aware that interventional maintenance may be required. We will have her hold her clopidogrel 2 days preoperatively. She will be maintained on her low-dose aspirin treatment. She has had an opportunity to ask and have questions answered. She is comfortable with the recommendations and would like to schedule and proceed as noted. I appreciate the opportunity of assisting with her surgical care CC: Dr. Ledy Barrientos and Dr. Brett Cheng M.D., F.A.C.S. Coding Level of Care Code 59048 Diagnoses Chronic renal insufficiency, stage IV (severe) N18. I have re-examined the patient. There are no clinical changes since date of exam.
[2019-04-06 10:12] VITALS: BMI 24.7
--- NOTE | 2019-04-06 10:53 | EKG12_ITS ---
Test Reason : PRE-OP Blood Pressure : / mmHG Vent. Rate : 064 BPM Atrial Rate : 064 BPM P-R Int : 226 ms QRS Dur : 088 ms QT Int : 436 ms P-R-T Axes : 054 052 057 degrees QTc Int : 449 ms Sinus rhythm with 1st degree A-V block Otherwise normal ECG Confirmed by CECI SIMMONS ([id number]), editorial manager ABIMAEL OBRIEN ([id number]) on 04/11/2019 9:14:13 AM Referred By: Antonio Cheng Confirmed By:CECI SIMMONS
[2019-04-06 12:02] LABS: Hematocrit 33.5 % (37-47); Hemoglobin 10.4 g/dL (12.0-15.0); Mean Corpuscular Hgb 29.4 pg (27.0-32.0); Mean Corpuscular Volume 94.6 fL (81-99); Mean Platelet Vol. 8.8 fl (6.2-12.0); POSITIVE MORPHOLOGY YES; Platelet Count 300 K/mm3 (150-450); RBC Distribution Width CV 19.2 % (11.6-14.6); RBC Distribution Width SD 67.7 fl (35.1-43.9); Red Blood Count 3.54 M/mm3 (4.2-5.4); Scan Indicated on CBC? Y/N YES- FLAGS NOTED; White Blood Count 9.1 K/mm3 (4.4-11.0)
[2019-04-06 12:09] LABS: Albumin, Serum 3.5 g/dL (3.2-5.0); Anion Gap 7 (5-15); BUN 38 mg/dL (7-18); Calcium,Total 10.1 mg/dL (8.5-10.1); Chloride 111 mmol/L (98-107); Creatinine, Serum 2.71 mg/dL (0.55-1.02); EST Glomerular Filtration Rate 18 mL/min (>60); Est Glom Filt Rate - Afr Amer 22 mL/min (>60); Ferritin 44 ng/mL (8-252); Glucose 72 mg/dL (74-106); Iron 53 ug/dL (50-170); Iron Binding Capacity,Total 349 ug/dL (250-450); PERCENT IRON SATURATION 15.2 % (15.0-55.0); Phosphorus 2.8 mg/dL (2.5-4.9); Potassium 4.4 mmol/L (3.5-5.1); Sodium Level 141 mmol/L (136-145)
[2019-04-06 12:10] LABS: PTHIN 324.8 pg/mL (18.4-80.1)
[2019-04-11] VITALS (8 sets, daily range): BP systolic 83–140; BP diastolic 43–63; PULSE 53–62; RESP 16–18; TEMP 36.1–36.6; O2SAT 93–100; BMI 25.9
[2019-04-11] MEDS: Lactated Ringers 1,000 ML 75 ML IV (07:56)
--- NOTE | 2019-04-11 08:52 | DCINST_ITS ---
Discharge Diet: Renal Diet Discharge Activity: May Not Drive - for 2-3 days or while taking narcotic pain medications., May Shower, May Take a Tub Bath - in 5 days. Lifting Restrictions: 5 pounds Keep extremity elevated above heart level: - - Keep arm elevated above the heart level for 3 days. Additional Activity Instructions:: Exercise hand vigorously with a stress ball. Call your doctor if your incision/area has: Continuous Slow Oozing, Sudden Increased Bleeding - apply pressure and call your doctor., Increased Pain/ Swelling, Increased Redness, Foul Smelling Discharge Call your doctor if you observe: Fever of 101 or Higher Suture Line Care: Avoid Pulling/Pushing, Avoid Pinching/Bending Cleanse incision/area with: Keep Dressing Clean & Dry Additional Dressing/Incision Instructions:: Change or remove dressing in one day. May protect with a gauze bandaid. Allergies/Adverse Reactions: Allergies lisinopril Allergy (Verified 04/06/19 10:08) Hives Sulfa (Sulfonamide Antibiotics) Allergy (Verified 04/06/19 10:08) Hives Medications to take at Discharge Aspirin [Aspirin, Baby] 81 mg PO DAILY 05/01/16 Levothyroxine [Synthroid] 75 mcg PO DAILY 02/03/18 Ferrous Sulfate 325 mg PO BIDCM 01/11/19 amiodarone 200 mg tablet 100 mg PO QDAY #45 tab 02/03/19 amlodipine 10 mg tablet 10 mg PO DAILY #90 tab 02/03/19 atorvastatin 10 mg tablet 10 mg PO DAILY #90 tab 02/03/19 clopidogrel 75 mg tablet 75 mg PO DAILY #90 tab 02/03/19 metoprolol tartrate 25 mg tablet 25 mg PO BID #180 tab 02/03/19 Acetaminophen [Tylenol Arthritis] 650 mg PO BID 04/05/19 Primary Care Physician: Brett Flores DO [Primary Care Provider] - Test Results: Test results from this visit will be discussed in further detail at your follow- up appointment, if applicable. Please Follow Up With: Antonio Cheng MD - [phone] When: Call to make an appointment for suture removal and follow up in 7-10 days.
[2019-04-11] MEDS: Bupivacaine Mpf 0.5% 30 ML VIAL (09:45)
[2019-04-11] MEDS: Heparin Injection (Vial) 5,000 UNIT/ML VIAL 5000 UNIT (10:00)
--- NOTE | 2019-04-11 10:51 | PCM.OPRPT ---
Problem List (1) Chronic renal insufficiency, stage IV (severe) Status: Chronic Report of Operation Date of Procedure: 04/11/19 Pre-Operative Diagnosis: Stage IV chronic renal insufficiency Post-Operative Diagnosis: Same Surgery/Procedure Performed:: Stage I left upper extremity basilic vein to brachial artery arteriovenous hemodialysis fistula creation Description of Surgical Findings:: Timeout and informed consent was obtained. 78-year-old female taken the operating placement table underwent monitored anesthesia care. Clean procedure. Timeout informed consent was obtained. The left upper extremity was sterilely prepped and draped. 1% lidocaine mixed 50-50 with 0.5% Marcaine was used as local anesthetic. The course of the left upper arm basilic vein was mapped with ultrasound and ink marking. An oblique incision was mapped on the proximal left upper arm. Local was instilled. A total of 17 cc was used. A oblique incision was created sharp blunt dissection was used. Superficial nerve was encountered with the M basilic vein and for exposure this had to be transposed. The vein was then identified circumferential control was obtained side branches were secured with 4-0 Vicryl ligatures. Sharp blunt dissection used to identify the brachial artery circumferential control was obtained and Vesseloops placed. The patient received 6000 units of heparin and then based upon time measurement and additional thousand units of heparin. The vein was inked marked it was dissected distally was secured with a 3-0 Vicryl tie and Hemoclip. At the point of branching it was spatulated. Peripheral vascular clamps were placed on the brachial artery and 11 blade was used to make an arteriotomy which is stented with Mary scissors The vein was transected irrigated and is noted at the branch point was spatulated and end-to-side anastomosis created with running 7-0 Prolene. Good hemostasis was achieved there was immediate pulse and thrill within the fistula. Patient still had 3+ left radial pulse and hand was viable. The wound retractors had placed a stretch on the superficial neurologic structure. I elected not to pursue that further. The wound was closed with a deep layer running 3-0 Vicryl. Skin edges proximal running septic or 4-0 Monocryl. Steri-Strips Telfa tape dressing soft roll and Jerry wrap applied. Sponge and instrument and needle counts were reported to surgeon be correct. Blood loss minimal. Specimens none. Drains none. Hand was viable to completion. She was taken to the recovery room in satisfactory condition. Antonio Cheng M.D., F.A.C.S. Type of Anesthesia:: Local MAC Anesthesiologist: Mauricio Guillermo
== END 2019-04-11 12:38 | disposition home or self-care (01) ==
LOC: SDC 07:18 → AC 07:18
PROVIDERS: Family Provider Family Medicine; PCP Family Medicine; Referring Provider Surgery; Visit Provider Surgery
PROC: (CPT 36821; principal; 2019-04-11 09:00)
DX: I12.9 Hypertensive chronic kidney disease with stage 1 through stage 4 chronic kidney disease, or unspecified chronic kidney disease (principal); N18.4 Chronic kidney disease, stage 4 (severe); I48.0 Paroxysmal atrial fibrillation; I25.10 Atherosclerotic heart disease of native coronary artery without angina pectoris; I65.29 Occlusion and stenosis of unspecified carotid artery; E78.5 Hyperlipidemia, unspecified; M19.90 Unspecified osteoarthritis, unspecified site; Z87.440 Personal history of urinary (tract) infections; Z95.5 Presence of coronary angioplasty implant and graft; Z79.02 Long term (current) use of antithrombotics/antiplatelets; Z79.899 Other long term (current) drug therapy
CPT/HCPCS: 36821; 36415; 80048; 82040; 82728; 83540; 83550; 83970; 84100; 85027; 93005; J7120; J2405

== ENCOUNTER → 2019-04-28 15:22 | Outpatient (CLI) | payer MEDICARE, SELFPAY ==
[2019-04-11 07:44] VITALS: BMI 25.9
[2019-04-28 16:26] LABS: Hematocrit 33.2 % (37-47); Hemoglobin 10.2 g/dL (12.0-15.0); Mean Corp Hgb Conc 30.7 g/dL (32-36); Mean Corpuscular Hgb 29.7 pg (27.0-32.0); Mean Corpuscular Volume 96.5 fL (81-99); Mean Platelet Vol. 8.5 fl (6.2-12.0); Platelet Count 263 K/mm3 (150-450); RBC Distribution Width CV 17.8 % (11.6-14.6); RBC Distribution Width SD 63.1 fl (35.1-43.9); Red Blood Count 3.44 M/mm3 (4.2-5.4); White Blood Count 10.1 K/mm3 (4.4-11.0)
[2019-04-28 16:59] LABS: Albumin, Serum 3.4 g/dL (3.2-5.0); BUN 29 mg/dL (7-18); BUN/Creat Ratio 10.6 RATIO (10-20); Chloride 108 mmol/L (98-107); Creatinine, Serum 2.73 mg/dL (0.55-1.02); EST Glomerular Filtration Rate 18 mL/min (>60); Est Glom Filt Rate - Afr Amer 22 mL/min (>60); Glucose 94 mg/dL (74-106); Iron 48 ug/dL (50-170); Iron Binding Capacity,Total 341 ug/dL (250-450); PERCENT IRON SATURATION 14.1 % (15.0-55.0); Phosphorus 2.8 mg/dL (2.5-4.9); Potassium 4.4 mmol/L (3.5-5.1); Sodium Level 138 mmol/L (136-145)
[2019-04-29 08:57] LABS: PTHIN 210.4 pg/mL (18.4-80.1)
[2019-04-29 09:43] LABS: Ferritin 47 ng/mL (8-252)
== END ==
PROVIDERS: Family Provider Family Medicine; PCP Family Medicine; Referring Provider Internal Medicine Nephrology; Visit Provider Internal Medicine Nephrology
DX: N18.4 Chronic kidney disease, stage 4 (severe) (principal); N25.81 Secondary hyperparathyroidism of renal origin; D50.9 Iron deficiency anemia, unspecified
CPT/HCPCS: 36415; 80069; 82728; 83540; 83550; 83970; 85027

== ENCOUNTER → 2019-05-27 11:37 | Outpatient (CLI) | payer MEDICARE, SELFPAY ==
[2019-04-11 07:44] VITALS: BMI 25.9
== END ==
PROVIDERS: Family Provider Family Medicine; PCP Family Medicine; Referring Provider Internal Medicine Nephrology; Visit Provider Internal Medicine Nephrology
DX: N18.4 Chronic kidney disease, stage 4 (severe) (principal); N25.81 Secondary hyperparathyroidism of renal origin; D50.9 Iron deficiency anemia, unspecified
CPT/HCPCS: 36415; 83970

== ENCOUNTER → 2019-06-09 11:54 | Outpatient (CLI) | payer MEDICARE, SELFPAY ==
[2019-04-11 07:44] VITALS: BMI 25.9
== END ==
PROVIDERS: Family Provider Family Medicine; PCP Family Medicine; Referring Provider Urology; Visit Provider Urology
DX: R30.0 Dysuria (principal)
CPT/HCPCS: 87077; 87086; 87088; 87186

== ENCOUNTER → 2019-06-17 11:21 | Outpatient (CLI) | payer MEDICARE, SELFPAY ==
[2019-04-11 07:44] VITALS: BMI 25.9
[2019-06-17 12:21] LABS: Hematocrit 30.5 % (37-47); Hemoglobin 9.5 g/dL (12.0-15.0); Mean Corp Hgb Conc 31.1 g/dL (32-36); Mean Corpuscular Hgb 29.2 pg (27.0-32.0); Mean Corpuscular Volume 93.8 fL (81-99); Mean Platelet Vol. 8.7 fl (6.2-12.0); Platelet Count 296 K/mm3 (150-450); RBC Distribution Width CV 14.6 % (11.6-14.6); RBC Distribution Width SD 49.6 fl (35.1-43.9); Red Blood Count 3.25 M/mm3 (4.2-5.4); White Blood Count 8.8 K/mm3 (4.4-11.0)
[2019-06-17 13:06] LABS: PTHIN 69.8 pg/mL (18.4-80.1)
[2019-06-17 13:14] LABS: BUN 40 mg/dL (7-18); BUN/Creat Ratio 10.1 RATIO (10-20); Calcium,Total 10.7 mg/dL (8.5-10.1); Chloride 112 mmol/L (98-107); Creatinine, Serum 3.96 mg/dL (0.55-1.02); EST Glomerular Filtration Rate 12 mL/min (>60); Est Glom Filt Rate - Afr Amer 14 mL/min (>60); Ferritin 106 ng/mL (8-252); Glucose 107 mg/dL (74-106); Iron 63 ug/dL (50-170); Iron Binding Capacity,Total 267 ug/dL (250-450); Phosphorus 3.1 mg/dL (2.5-4.9); Potassium 3.9 mmol/L (3.5-5.1); Sodium Level 137 mmol/L (136-145)
== END ==
PROVIDERS: Family Provider Family Medicine; PCP Family Medicine; Referring Provider Internal Medicine Nephrology; Visit Provider Internal Medicine Nephrology
DX: N18.4 Chronic kidney disease, stage 4 (severe) (principal); D50.9 Iron deficiency anemia, unspecified; N25.81 Secondary hyperparathyroidism of renal origin
CPT/HCPCS: 36415; 80069; 82728; 83540; 83550; 83970; 85027

== ENCOUNTER → 2019-06-28 17:10 | Outpatient (CLI) | payer MEDICARE, SELFPAY ==
[2019-06-21 13:05] VITALS: BMI 25.9
== END ==
PROVIDERS: PCP Family Medicine; Referring Provider Urology; Visit Provider Urology
DX: N39.0 Urinary tract infection, site not specified (principal)
CPT/HCPCS: 87077; 87086; 87088; 87186

== ENCOUNTER → 2019-06-29 11:49 | Outpatient (CLI) | payer MEDICARE, SELFPAY ==
[2019-04-11 07:44] VITALS: BMI 25.9
[2019-06-21 13:05] VITALS: BMI 25.9
[2019-06-29 12:16] LABS: Hematocrit 30.1 % (37-47); Hemoglobin 9.1 g/dL (12.0-15.0); Mean Corp Hgb Conc 30.2 g/dL (32-36); Mean Corpuscular Hgb 29.2 pg (27.0-32.0); Mean Corpuscular Volume 96.5 fL (81-99); Mean Platelet Vol. 8.6 fl (6.2-12.0); Platelet Count 329 K/mm3 (150-450); RBC Distribution Width CV 15.4 % (11.6-14.6); RBC Distribution Width SD 54.1 fl (35.1-43.9); Red Blood Count 3.12 M/mm3 (4.2-5.4); White Blood Count 7.7 K/mm3 (4.4-11.0)
[2019-06-29 12:38] LABS: Albumin, Serum 2.9 g/dL (3.2-5.0); BUN 50 mg/dL (7-18); BUN/Creat Ratio 12.5 RATIO (10-20); Calcium,Total 11.3 mg/dL (8.5-10.1); Chloride 110 mmol/L (98-107); Creatinine, Serum 4.01 mg/dL (0.55-1.02); EST Glomerular Filtration Rate 12 mL/min (>60); Est Glom Filt Rate - Afr Amer 14 mL/min (>60); Ferritin 193 ng/mL (8-252); Glucose 105 mg/dL (74-106); Iron 20 ug/dL (50-170); Iron Binding Capacity,Total 243 ug/dL (250-450); PTHIN 66.4 pg/mL (18.4-80.1); Phosphorus 2.6 mg/dL (2.5-4.9); Potassium 4.3 mmol/L (3.5-5.1); Sodium Level 137 mmol/L (136-145)
== END ==
PROVIDERS: Family Provider Family Medicine; PCP Family Medicine; Visit Provider Internal Medicine Nephrology
DX: N18.4 Chronic kidney disease, stage 4 (severe) (principal); N25.81 Secondary hyperparathyroidism of renal origin; D50.9 Iron deficiency anemia, unspecified
CPT/HCPCS: 36415; 80069; 82728; 83540; 83550; 83970; 85027

== ENCOUNTER 2019-07-06 11:57 | Day surgery (SDC) | payer MEDICARE, SELFPAY ==
[2019-06-21 13:05] VITALS: BMI 25.9
--- NOTE | 2019-06-22 06:56 | HP_ITS ---
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 Is patient in pain?: No Allergies lisinopril Allergy (Verified 06/21/19 13:04) Hives Sulfa (Sulfonamide Antibiotics) Allergy (Verified 06/21/19 13:04) Hives Medications Aspirin [Aspirin, Baby] 81 mg PO DAILY 05/01/16 [History Confirmed 06/21/19] Levothyroxine [Synthroid] 75 mcg PO DAILY 02/03/18 [History Confirmed 06/21/19] Ferrous Sulfate 325 mg PO BIDCM 01/11/19 [History Confirmed 06/21/19] amiodarone 200 mg tablet 100 mg PO QDAY #45 tab 02/03/19 [Rx Confirmed 06/21/19] amlodipine 10 mg tablet 10 mg PO DAILY #90 tab 02/03/19 [Rx Confirmed 06/21/19] atorvastatin 10 mg tablet 10 mg PO DAILY #90 tab 02/03/19 [Rx Confirmed 06/21/19] clopidogrel 75 mg tablet 75 mg PO DAILY #90 tab 02/03/19 [Rx Confirmed 06/21/19] metoprolol tartrate 25 mg tablet 25 mg PO BID #180 tab 02/03/19 [Rx Confirmed 06/21/19] Acetaminophen [Tylenol Arthritis] 650 mg PO BID 04/05/19 [History Confirmed 06/21/19] [facility] Medical History Chronic renal insufficiency, stage IV (severe) (Chronic) Paroxysmal atrial fibrillation (Chronic) 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) Atherosclerosis of coronary artery of [place] heart without angina pectoris (Chronic) Essential (primary) hypertension (Chronic) Stenosis of left carotid artery (Chronic) HLD (hyperlipidemia) (Chronic) Arthritis (Chronic) Chronic renal disease, stage IV (Chronic) Normochromic normocytic anemia (Chronic) Acute pyelonephritis (Resolved) Sepsis (Resolved) Surgical History History of coronary artery stent placement (Resolved 10/09/08) history Left brachial AV fistula creation (Acute ~04/11/19) History of left-sided carotid endarterectomy (Resolved) History of total abdominal hysterectomy and bilateral salpingo-oophorectomy (Resolved) History of ureter stent (Resolved) Hx of cataract surgery (Resolved) Family History Mother CVA (cerebral vascular accident) Hypertension Alcoholism Heart disease Father Heart disease Social History (Updated 06/22/19 @ 07:00 by Esther Krause PA-C) alcohol intake: never substance use type: does not use HPI HPI HPI: ERNESTO KATZ, is a 78 F who presents to the office today for HPI HPI Surgical H&P: Yes HPI: Patient is a 78 y/o F I am following for stage IV chronic renal failure. Dr. Cheng performed a stage I left upper extremity basilic vein to brachial artery arteriovenous fistula creation on 04/11/19. Patient tolerated the procedure well. Patient denies numbness/tingling. She notes soreness/bruising of the left forearm. She denies drainage at the incision. Patient returns today for a follow-up and update history and physical. She denies any changes. She is not currently on dialysis. She notes recent treatment of a UTI. She denies recent hospitalizations. Patient denies previous complications with anesthesia. She denies pain at the fistula site. ROS General General: Yes fatigue; no weight change, appetite, colon cancer, breast cancer or weakness HEENT HEENT: No difficulty swallowing, eye injury, eye surgery, swollen glands or hoarseness Endo Endocrine: No thyroid disease, diabetes mellitus, thyroid cancer, Hair loss, heat intolerance or cold intolerance Skin Skin: No rash or changing moles Breast Breast: No left breast lump, right breast lump, nipple discharge, breast pain, abnormal mammogram, abnormal US or breast enlargement Musc Musculoskeletal: Yes arthritis; no back problems, rheumatoid arthritis, gout or joint pain Cardio Cardiovascular: Yes high blood pressure and heart stent; no murmur, pacemaker, heart disease, atrial fibrillation, heart attack, palpitations, shortness of breat with exertion or chest pain Psych Psychiatric: No depression, anxiety or hearing voices Resp Respiratory: No shortness of breath, No sleep apnea, No cough, No COPD, No asthma, No emphysema, No wheezing Gastro Gastrointestinal: No abdominal pain, No nausea or vomiting, No diarrhea, Yes constipation, No blood in stool, No acid reflux, No hemorrhoids, No ulcers, No gallbladder problem, Yes black,tarry stools Owen Hematologic: Yes blood thinners, No blood disorders, No bleeding, Yes anemia, No blood clots Neuro Neurologic: No weakness Exam Const General: cooperative, healthy appearing, comfortable, no acute distress HENID Head: normal to inspection Eyes General: appearance normal, both eyes and all related structures Neck Neck: normal visual inspection Neck mass: No Chest Breast Palpation: No nipple discharge Resp Effort & Inspection: normal respiratory effort Auscultation: clear to auscultation bilaterally Cardio Rate: regular rate Rhythm: regular rhythm Heart Sounds: no murmurs GI Inspection: normal to inspection Palpation: soft Auscultation: normal bowel sounds Skin General: no rashes or lesions noted Neuro General: no focal motor deficits, CN's II-XI intact bilaterally Extrem Other: Left upper extremity AV fistula- good pulse, bruit and thrill. Nicely healed incision. Psych Appearance: grossly normal Affect: normal affect Assessment & Plan Problems 1. Chronic renal insufficiency, stage IV (severe) N18.[address] Cheng will plan to perform stage II transposition of the left upper extremity basilic vein to brachial artery arteriovenous fistula creation. Procedure details, risks and benefits have been explained to the patient. Patient has had the opportunity to ask and have questions answered. Patient verbally understands and agrees with the plan. She is maintained on Plavix an aspirin. She will hold these two medications for 3 days prior to the procedure. Coding Level of Care Code No Charge Diagnoses Chronic renal insufficiency, stage IV (severe) N18.4 Comment Update H&P 06/22/19 0700 <Electronically signed by Esther welsh PA-C> Date _ Esther Krause PA-C
[2019-07-06] VITALS (9 sets, daily range): BP systolic 112–142; BP diastolic 52–68; PULSE 65–95; RESP 16; TEMP 36.3–37; O2SAT 94–98; BMI 24.3
[2019-07-06] MEDS: 0.9% Normal Saline 1,000 ML 30 ML IV (12:39)
[2019-07-06] MEDS: Cefazolin 2 GM in 0.9% Normal Saline 100 ML IV (13:48)
--- NOTE | 2019-07-06 14:22 | PCM.CONS.B ---
- Consult Date of Consult: 07/06/19 - Reason for Consult 78-year-old female who has chronic bilateral stents she has continuous infections she has a very resistant urinary tract infection today, today regard to bilateral stent changes after the stent changes today in good admitted to the hospital for IV antibiotics given a resistant infection also will consult infectious disease.
--- NOTE | 2019-07-06 14:24 | OP.PCM_ITS ---
Report of Operation Date of Procedure: 07/06/19 Pre-Operative Diagnosis: 78-year-old female she also has an active infection. Post-Operative Diagnosis: Same plus chronic renal insufficiency Surgery/Procedure Performed:: Cystoscopy bilateral stent changes bilateral retrograde pyelograms and interpretation of fluoroscopic images. Description of Surgical Findings:: 78-year-old female was taken back to the operating room went into the bladder wi th a 21 [place] rigid cystourethroscope grabbed the existing stent from the right ureteral orifice pulled out the meatus try to put a wire the stent was was unable to. Then went back into the bladder and put a wire next of the stent and pulled out the stent but a wire up into the right kidney advanced the Pollack catheter over the wire performed a retrograde pyelogram looked at the fluoroscopic images he had significant hydronephrosis. I then advanced a new 7 [place]riot by 24 cm stent on the right side, I then went to the left side grabbed the existing stent on the left side again I could put a wire the stent it was completely clogged so I pulled the stent out and advanced a new stent on the left side it was a new 7 [place]riot by 24 cm stent. The urine was fairly copiously purulent with debris. She is on antibiotics. I then drained the bladder both stents were in good position readmitted to the hospital for continuous IV antibiotics will consult infectious disease to assist in choosing what antibiotics to give her to clear this infection. Type of Anesthesia:: General Drains: stents bilateral. - Admit VTE Documentation VTE Present on Admission: No VTE Mechan Device Prophylaxis: SCD's
[2019-07-06] MEDS: Ceftriaxone 1 GM/50 ML BAG IV (17:28)
[2019-07-07] MEDS: 0.9% Normal Saline 1,000 ML 30 ML IV (00:18)
[2019-07-07 03:21] VITALS: BP 136/67; PULSE 70; RESP 16; TEMP 36.6; O2SAT 98
[2019-07-07 06:23] LABS: Hematocrit 25.9 % (37-47); Hemoglobin 8.1 g/dL (12.0-15.0); Mean Corp Hgb Conc 31.3 g/dL (32-36); Mean Corpuscular Volume 95.9 fL (81-99); Mean Platelet Vol. 8.7 fl (6.2-12.0); Platelet Count 268 K/mm3 (150-450); RBC Distribution Width CV 15.4 % (11.6-14.6); RBC Distribution Width SD 54.9 fl (35.1-43.9); White Blood Count 10.2 K/mm3 (4.4-11.0)
[2019-07-07 06:43] LABS: Anion Gap 7 (5-15); BUN 43 mg/dL (7-18); Calcium,Total 9.9 mg/dL (8.5-10.1); Chloride 113 mmol/L (98-107); Creatinine, Serum 3.57 mg/dL (0.55-1.02); EST Glomerular Filtration Rate 13 mL/min (>60); Est Glom Filt Rate - Afr Amer 16 mL/min (>60); Estimated Creatinine Clearance 11.09 ml/min; Glucose 118 mg/dL (74-106); Potassium 4.4 mmol/L (3.5-5.1); Sodium Level 138 mmol/L (136-145)
[2019-07-07 07:34] VITALS: BP 145/67; PULSE 72; RESP 14; TEMP 36.6; O2SAT 100
--- NOTE | 2019-07-07 07:40 | NURSING ---
up to chair for breakfast
--- NOTE | 2019-07-07 07:53 | CON.PCM_ITS ---
- Consult Date of Consult: 07/07/19 - Reason for Consult 78-year-old female status post bilateral stents yesterday in the operating room for obstruction and very resistant urinary tract infection infectious disease consulted antibiotics has been changed to meropenem. Patient is clinically stable today. Is been urinating well. We will check a blood count and a white count a CBC and a BMP she also has chronic renal sufficiency. On examination she is alert and oriented x3 no acute distress no fevers or c [place] abdomen soft and benign tolerating regular diet back no tenderness or soreness. 78-year-old female with multiple medical problems admitted after stent change for her very resistant infection history of chronic obstruction and near dialysis her creatinine is been fairly elevated but has not started dialysis yet. Continue with IV antibiotics await ID input as far as going home.
--- NOTE | 2019-07-07 10:19 | CON.PCM_ITS ---
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 Garcia History of Present Illness: The patient is a 78 year old F with CKD, bilateral ureteral stents, recurrent uti. Gets stents changed every 4 months. Recurrent uti including ecoli bacteremia in 2017. Recent ucxs with esbl klebs and strep. Last week, started to not feel well. No pain, no dysuria. Urinary frequency and fatigue present. No fever. Saw Dr. Garcia, given amoxicillin, then changed to a different po antibiotic (possibly fosfomycin) without improvement. Taken to OR yesterday for bilateral stent exchange with zahira purulence drained. Started on ceftriaxone, changed to meropenem overnight. Feeling well. Full ROS performed and neg except as noted above. 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) Atherosclerosis of coronary artery of [place] heart without angina pectoris (Chronic) Essential (primary) hypertension (Chronic) Stenosis of left carotid artery (Chronic) HLD (hyperlipidemia) (Chronic) Allergies/Adverse Reactions: Allergies lisinopril Allergy (Verified 07/06/19 12:20) Hives Sulfa (Sulfonamide Antibiotics) Allergy (Verified 07/06/19 12:20) Hives Home Medications: Ambulatory Orders Medication Instructions Recorded Aspirin [Aspirin, Baby] 81 mg PO DAILY 05/01/16 Levothyroxine [Synthroid] 75 mcg PO DAILY 02/03/18 Ferrous Sulfate 325 mg PO TID 01/11/19 metoprolol tartrate 25 mg tablet 25 mg PO BID #180 tab 02/03/19 Acetaminophen [Tylenol Arthritis] 650 mg PO BID 04/05/19 Amiodarone HCl 100 mg PO QDAY 07/06/19 Amlodipine Besylate 5 mg PO DAILY 07/06/19 Atorvastatin Calcium 10 mg PO QHS 07/06/19 Clopidogrel Bisulfate [Clopidogrel] 75 mg PO DAILY 07/06/19 Ertapenem Sod [Invanz] 0.5 gm IM DAILY 28 Days #14 vial 07/07/19 - Social History Tobacco Use: non-smoker Vital Signs Temp Pulse Resp BP Pulse Ox 97.8 F 72 14 145/67 H 100 07/07/19 07:34 07/07/19 07:34 07/07/19 07:34 07/07/19 07:34 07/07/19 07:34 Oxygen Delivery Method Room Air Weight: 62.414 kg Body Mass Index (BMI) 24.3 Laboratory Tests Past 24 Hrs 07/07/19 07/07/19 05:36 05:36 WBC 10.2 RBC 2.70 L Hgb 8.1 L Hct 25.9 L MCV 95.9 MCH 30.0 MCHC 31.3 L RDW Std Deviation 54.9 H RDW Coeff of Lianet 15.4 H Plt Count 268 MPV 8.7 Sodium 138 Potassium 4.4 Chloride 113 H Carbon Dioxide 18.0 L Anion Gap 7 BUN 43 H Creatinine 3.57 H Estim Creat Clear Calc 11.09 Est GFR (MDRD) Af Amer 16 L Est GFR (MDRD) Non-Af 13 L BUN/Creatinine Ratio 12.0 Glucose 118 H Calcium 9.9 - Other Studies Radiology: [] reviewed Other Studies: [] Route of nutrition/ use of supplements: [] Nutritional Intake: [] IV Site: [] Lau Catheter: [] - Physical Exam General: Alert, Oriented x3, Cooperative, No apparent distress HEENT: Atraumatic, PERRLA, EOMI Neck: Supple, No Nodes Lungs: Clear to auscultation, Normal air movement Cardiovascular: Regular rate, Regular Rhythm Abdomen: Soft, Non Tender, Non-Distended, - - no flank pain Extremities: No edema Skin: No rashes IV Site: Peripheral, without redness, - - LUE fistula Musculoskeletal: No Tenderness to Palpation of Joints or Extremities Neurological: Cranial nerves II-XII grossly intact - Assessment/Plan Antibiotics: [] Assessment/Plan: [] ESBL klebs pneumo and GBS pyelo with bilateral infected stents - now s/p OR exchange 07/[address] Garcia of the stents with copious purulence drained. Abx changed to meropenem. 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 Now with resistant bacteria without oral options. Avoiding picc line due to ESRD. Plan for discharge will be for 4 weeks of IM ertapenem once daily at infusion center with weekly bmp, cbc, and LFT. ID followup with me in 2 weeks. Concern is that these new stents are now colonized since they were inserted into an area of active infection. If she can have another exchange while on abx in the next few weeks, that would give her the best chance of clearing this completely. Correction suppressive abx do not seem to be an option based on her resistance pattern. Will follow, wrote rx, d/w manager of case management.
--- NOTE | 2019-07-07 11:25 | CASEMGMT ---
MASSIMO TENA received script from ID for IM Ertapenem for at discharge for infusion clinic. MASSIMO TENA in to see patient and confirm with patient that she would like to come to the Outpatient infusion clinic to receive injection. Patient confirmed that she would like to go to the outpatient infusion clinic at [facility] . Referral sent to [facility] Outpatient infusion clinic and appointment made for 07/08/19 at 1300. MASSIMO TENA updated the patient.
--- NOTE | 2019-07-08 14:24 | PCM.HP.STD ---
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) Atherosclerosis of coronary artery of [place] heart without angina pectoris (Chronic) Essential (primary) hypertension (Chronic) Stenosis of left carotid artery (Chronic) HLD (hyperlipidemia) (Chronic) Medical History: Medical History (Last Reviewed 06/21/19 @ 13:03 by Maria Esther Siegel) Chronic renal insufficiency, stage IV (severe) (Chronic) N18.4 Paroxysmal atrial fibrillation (Chronic) I48.0 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) N13.2 Atherosclerosis of coronary artery of [place] heart without angina pectoris (Chronic) I25.10 Essential (primary) hypertension (Chronic) I10 Stenosis of left carotid artery (Chronic) I65.22 HLD (hyperlipidemia) (Chronic) E78.5 Arthritis M19.90 Chronic renal disease, stage IV N18.4 Normochromic normocytic anemia D64.9 Acute pyelonephritis N10 Sepsis A41.9 Allergies lisinopril Allergy (Verified 07/06/19 12:20) Hives Sulfa (Sulfonamide Antibiotics) Allergy (Verified 07/06/19 12:20) Hives Home Medications: Ambulatory Orders Medication Instructions Recorded Aspirin [Aspirin, Baby] 81 mg PO DAILY 05/01/16 Levothyroxine [Synthroid] 75 mcg PO DAILY 02/03/18 Ferrous Sulfate 325 mg PO TID 01/11/19 metoprolol tartrate 25 mg tablet 25 mg PO BID #180 tab 02/03/19 Acetaminophen [Tylenol Arthritis] 650 mg PO BID 04/05/19 Amiodarone HCl 100 mg PO QDAY 07/06/19 Amlodipine Besylate 5 mg PO DAILY 07/06/19 Atorvastatin Calcium 10 mg PO QHS 07/06/19 Clopidogrel Bisulfate [Clopidogrel] 75 mg PO DAILY 07/06/19 Ertapenem Sod [Invanz] 0.5 gm IM DAILY 28 Days #14 vial 07/07/19 Surgical History: Surgical History (Last Reviewed 06/21/19 @ 13:03 by Maria Esther Siegel) History of coronary artery stent placement (Resolved) Onset Date: 10/09/08 Z95.5 PCI-BMS-Mid LAD 10/09/2008 history Left brachial AV fistula creation Onset Date: ~04/11/19 History of left-sided carotid endarterectomy Z98.890 Left carotid stent in 2008 History of total abdominal hysterectomy and bilateral salpingo-oophorectomy Z90.710, Z90.722, Z90.August History of ureter stent Z96.0 Bilateral, stents place for b/l hydronephrosis, suspected secondary to enlarged uterus but continued issue s/p hysterectomy. Hx of cataract surgery Z98.49 Surgical History: hysterectomy, - Psychiatric History: No pertinent psych hx Smoking Status: Never smoker Tobacco Use: Non-smoker - *Family History Maternal Family History: Family History (Last Reviewed 06/21/19 @ 13:03 by Maria Esther Siegel) Mother CVA (cerebral vascular accident) Hypertension Alcoholism Heart disease Father Heart disease History Items: - VTE Information - Inpt Only VTE Present on Admission: No - Physical Exam Vitals/I&O's: Vital Signs Temp Pulse Resp BP Pulse Ox 97.8 F 72 14 145/67 H 100 07/07/19 07:34 07/07/19 07:34 07/07/19 07:34 07/07/19 07:34 07/07/19 07:34 Oxygen Delivery Method Room Air Weight: 62.414 kg Body Mass Index (BMI) 24.3 Intake and Output for Last 24 Hours 07/06/19 07/07/19 07/08/19 23:59 23:59 23:59 Intake Total 689.5 / 1039.5 1232 / 1232 Output Total 1350 / 1350 Balance 689.5 / 389.5 -118 / -118 General: Alert, Oriented x3, Cooperative HEENT: Atraumatic, PERRLA, EOMI, Normocephalic Neck: Supple, No JVD, Negative Carotid Bruits Lungs: Clear to auscultation, Normal air movement Cardiovascular: Regular rate, No murmurs Abdomen: Bowel Sounds Present, Soft, Non Tender Extremities: No edema, Capillary Refill Less than 3 Seconds Skin: No rashes, No breakdown Musculoskeletal: No Tenderness to Palpation of Joints or Extremities Neurological: Cranial nerves II-XII grossly intact Psych/Mental Status: Normal Affect, Appropriate Assessment/Plan All Active Problems (Last Reviewed 06/21/19 @ 13:03 by Maria Esther Siegel) 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 (Acute) History of coronary artery stent placement (Resolved 10/09/08) Bradycardia (Resolved) Dehydration (Resolved) Hypokalemia (Resolved) UTI (urinary tract infection) (Resolved) We will proceed with bilateral stent changes today she will need to be admitted to the hospital after the procedure.
== END 2019-07-07 13:30 | disposition home or self-care (01) ==
LOC: SDC 11:58 → AC 12:00 → MS3 07-07 07:50
PROVIDERS: PCP Family Medicine; Referring Provider Urology; Visit Provider Urology
PROC: (CPT 50575; principal; 2019-07-06 13:25)
DX: N11.1 Chronic obstructive pyelonephritis (principal); B96.1 Klebsiella pneumoniae [K. pneumoniae] as the cause of diseases classified elsewhere; B95.1 Streptococcus, group B, as the cause of diseases classified elsewhere; Z16.30 Resistance to unspecified antimicrobial drugs; I12.9 Hypertensive chronic kidney disease with stage 1 through stage 4 chronic kidney disease, or unspecified chronic kidney disease; N18.4 Chronic kidney disease, stage 4 (severe); I48.0 Paroxysmal atrial fibrillation; I25.10 Atherosclerotic heart disease of native coronary artery without angina pectoris; E78.5 Hyperlipidemia, unspecified; D63.1 Anemia in chronic kidney disease; E06.9 Thyroiditis, unspecified; M19.90 Unspecified osteoarthritis, unspecified site; Z23 Encounter for immunization; Z79.02 Long term (current) use of antithrombotics/antiplatelets; Z95.5 Presence of coronary angioplasty implant and graft; Z79.82 Long term (current) use of aspirin; Z79.899 Other long term (current) drug therapy
CPT/HCPCS: 52005; 52332; 36415; 76000; 80048; 85027; 99251; G0008; J2185; J7030; J7040; 90686; C1769; C1874; G0463; J2405; J3490

== ENCOUNTER → 2019-07-08 | Outpatient (CLI) | payer MEDICARE, SELFPAY ==
[2019-07-06 15:27] VITALS: BMI 24.3
[2019-07-08 13:02] VITALS: BP 128/52; PULSE 59; RESP 16; TEMP 36.1; O2SAT 100; BMI 24.3
[2019-07-08] MEDS: Ertapenem Sod 1 GM/10 ML Vial 0.5 GM IM (13:38)
[2019-07-08 13:44] LABS: Mean Corpuscular Hgb 30.3 pg (27.0-32.0); Mean Corpuscular Volume 97.6 fL (81-99); Mean Platelet Vol. 8.6 fl (6.2-12.0); Platelet Count 293 K/mm3 (150-450); RBC Distribution Width CV 15.6 % (11.6-14.6); RBC Distribution Width SD 56.3 fl (35.1-43.9); Red Blood Count 2.97 M/mm3 (4.2-5.4); White Blood Count 7.9 K/mm3 (4.4-11.0)
[2019-07-08 14:04] LABS: AST(SGOT) 12 U/L (15-37); Alanine Aminotransfer ALT/SGPT 11 U/L (13-56); Albumin, Serum 2.9 g/dL (3.2-5.0); Alkaline Phosphatase 87 U/L (45-117); Anion Gap 7 (5-15); BUN 50 mg/dL (7-18); BUN/Creat Ratio 13.3 RATIO (10-20); Chloride 115 mmol/L (98-107); Creatinine, Serum 3.75 mg/dL (0.55-1.02); EST Glomerular Filtration Rate 12 mL/min (>60); Est Glom Filt Rate - Afr Amer 15 mL/min (>60); Estimated Creatinine Clearance 10.56 ml/min; Globulin 3.4 g/dL (2.2-4.2); Glucose 91 mg/dL (74-106); Protein, Total 6.3 g/dL (6.4-8.2); Sodium Level 143 mmol/L (136-145)
== END | disposition home or self-care (01) ==
LOC: MEDOUTP 12:57
PROVIDERS: PCP Family Medicine; Referring Provider Internal Medicine Infectious Disease; Visit Provider Internal Medicine Infectious Disease
DX: B99.9 Unspecified infectious disease (principal); Z16.12 Extended spectrum beta lactamase (ESBL) resistance
CPT/HCPCS: 36415; 80048; 80076; 85027; 96372

== ENCOUNTER 2019-07-09 12:57 | Outpatient (CLI) | payer MEDICARE, SELFPAY ==
[2019-07-08 13:02] VITALS: BMI 24.3
[2019-07-09 13:51] VITALS: BP 138/59; PULSE 64; RESP 15; TEMP 36.6; O2SAT 97; O2SAT 98; BMI 24.4
--- NOTE | 2019-07-09 13:58 | ED.RN ---
ERTAPENEM 500 MG OBTAINED FROM PHARMACY. GIVEN IN RIGHT DELTOID. PT WILL BE HELD FOR 20 MIN AND EVALUATED OF ALLERGIC RESPONSE. Paulette MATUTE. MASSIMO [id number]
--- NOTE | 2019-07-09 14:45 | ED.RN ---
pt left prior to re-evaluation. aric vázquez, rn [id number]
== END 2019-07-09 14:46 | disposition home or self-care (01) ==
LOC: ED 07-11 15:12
PROVIDERS: PCP Family Medicine; Visit Provider Emergency Medicine
DX: Z16.12 Extended spectrum beta lactamase (ESBL) resistance (principal); B99.9 Unspecified infectious disease

== ENCOUNTER → 2019-07-09 | Outpatient (CLI) | payer MEDICARE, SELFPAY ==
[2019-07-06 15:27] VITALS: BMI 24.3
[2019-07-08 13:02] VITALS: BMI 24.3
== END | disposition home or self-care (01) ==
LOC: MEDOUTP 13:14
PROVIDERS: PCP Family Medicine; Visit Provider Internal Medicine Infectious Disease
DX: B99.9 Unspecified infectious disease (principal); Z16.12 Extended spectrum beta lactamase (ESBL) resistance
CPT/HCPCS: 96372

== ENCOUNTER 2019-07-10 12:32 | Emergency (ER) | payer MEDICARE, SELFPAY ==
[2019-07-09 13:51] VITALS: BMI 24.4
[2019-07-10 13:42] VITALS: BP 143/94; PULSE 65; RESP 17; TEMP 36.7; O2SAT 100; BMI 24.4
== END 2019-07-10 13:46 | disposition home or self-care (01) ==
LOC: ED 12:54
PROVIDERS: Emergency Provider Emergency Medicine; PCP Family Medicine; Referring Provider Family Medicine
DX: B99.9 Unspecified infectious disease (principal); Z16.12 Extended spectrum beta lactamase (ESBL) resistance

== ENCOUNTER → 2019-07-10 | Outpatient (CLI) | payer MEDICARE, SELFPAY ==
[2019-07-06 15:27] VITALS: BMI 24.3
== END | disposition home or self-care (01) ==
LOC: MEDOUTP 07-26 09:12
PROVIDERS: PCP Family Medicine; Visit Provider Internal Medicine Infectious Disease
DX: B99.9 Unspecified infectious disease (principal); Z16.12 Extended spectrum beta lactamase (ESBL) resistance
CPT/HCPCS: 96372

== ENCOUNTER → 2019-07-11 | Outpatient (CLI) | payer MEDICARE, SELFPAY ==
[2019-07-06 15:27] VITALS: BMI 24.3
[2019-07-10 13:42] VITALS: BMI 24.4
[2019-07-11 13:46] VITALS: BP 149/50; PULSE 61; RESP 16; TEMP 35.8; O2SAT 100; BMI 24.4
[2019-07-11] MEDS: Ertapenem Sod 1 GM/10 ML Vial 0.5 GM IM (14:07)
== END | disposition home or self-care (01) ==
LOC: MEDOUTP 13:24
PROVIDERS: PCP Family Medicine; Referring Provider Internal Medicine Infectious Disease; Visit Provider Internal Medicine Infectious Disease
DX: B99.9 Unspecified infectious disease (principal); Z16.12 Extended spectrum beta lactamase (ESBL) resistance
CPT/HCPCS: 96372

== ENCOUNTER → 2019-07-12 | Outpatient (CLI) | payer MEDICARE, SELFPAY ==
[2019-07-06 15:27] VITALS: BMI 24.3
[2019-07-11 13:46] VITALS: BMI 24.4
[2019-07-12 13:37] VITALS: BP 150/72; PULSE 63; RESP 14; TEMP 36.1; O2SAT 100; BMI 24.4
[2019-07-12] MEDS: Ertapenem Sod 1 GM/10 ML Vial 0.5 GM IM (14:09)
== END | disposition home or self-care (01) ==
LOC: MEDOUTP 13:26
PROVIDERS: PCP Family Medicine; Referring Provider Internal Medicine Infectious Disease; Visit Provider Internal Medicine Infectious Disease
DX: B99.9 Unspecified infectious disease (principal); Z16.12 Extended spectrum beta lactamase (ESBL) resistance
CPT/HCPCS: 96372

== ENCOUNTER → 2019-07-13 | Outpatient (CLI) | payer MEDICARE, SELFPAY ==
[2019-07-06 15:27] VITALS: BMI 24.3
[2019-07-12 13:37] VITALS: BMI 24.4
[2019-07-13 13:11] VITALS: BP 143/49; PULSE 63; RESP 16; TEMP 36.4; O2SAT 97; BMI 24.4
[2019-07-13] MEDS: Ertapenem Sod 1 GM/10 ML Vial 0.5 GM IM (13:26)
== END | disposition home or self-care (01) ==
LOC: MEDOUTP 12:55
PROVIDERS: PCP Family Medicine; Referring Provider Internal Medicine Infectious Disease; Visit Provider Internal Medicine Infectious Disease
DX: B99.9 Unspecified infectious disease (principal); Z16.12 Extended spectrum beta lactamase (ESBL) resistance
CPT/HCPCS: 96372

== ENCOUNTER → 2019-07-14 | Outpatient (CLI) | payer MEDICARE, SELFPAY ==
[2019-07-06 15:27] VITALS: BMI 24.3
[2019-07-13 13:11] VITALS: BMI 24.4
[2019-07-14 13:00] VITALS: BP 147/51; PULSE 58; RESP 18; TEMP 35.8; O2SAT 95; BMI 24.4
[2019-07-14] MEDS: Ertapenem Sod 1 GM/10 ML Vial 0.5 GM IM (13:11)
== END | disposition home or self-care (01) ==
LOC: MEDOUTP 12:54
PROVIDERS: PCP Family Medicine; Referring Provider Internal Medicine Infectious Disease; Visit Provider Internal Medicine Infectious Disease
DX: B99.9 Unspecified infectious disease (principal); Z16.12 Extended spectrum beta lactamase (ESBL) resistance
CPT/HCPCS: 96372

== ENCOUNTER → 2019-07-15 | Outpatient (CLI) | payer MEDICARE, SELFPAY ==
[2019-07-06 15:27] VITALS: BMI 24.3
[2019-07-14 13:00] VITALS: BMI 24.4
[2019-07-15 13:05] VITALS: BP 146/50; PULSE 59; RESP 16; TEMP 36; O2SAT 100; BMI 24.4
[2019-07-15 13:24] LABS: Absolute Neutrophil Count 4.8 X10^3/uL (2.0-7.7); Basophil# 0.08 X10^3/uL; Basophil% 1.1 % (0-1); Eosinophil# 0.26 X10^3/uL; Eosinophils% 3.6 % (0-5); Hematocrit 30.9 % (37-47); Hemoglobin 9.5 g/dL (12.0-15.0); Lymphocyte % 20.9 % (19-41); Mean Corp Hgb Conc 30.7 g/dL (32-36); Mean Corpuscular Hgb 30.2 pg (27.0-32.0); Mean Corpuscular Volume 98.1 fL (81-99); Monocyte# 0.48 X10^3/uL; Monocyte% 6.7 % (0-10); NRBC Flagged by Analyzer 0 % (0-5); Neutrophil # 4.81 X10^3/uL (2.7-7.7); Neutrophil % 67.1 % (47-70); Platelet Count 235 K/mm3 (150-450); RBC Distribution Width CV 15.9 % (11.6-14.6); RBC Distribution Width SD 56.6 fl (35.1-43.9); Red Blood Count 3.15 M/mm3 (4.2-5.4); White Blood Count 7.2 K/mm3 (4.4-11.0)
[2019-07-15] MEDS: Ertapenem Sod 1 GM/10 ML Vial 0.5 GM IM (13:24)
[2019-07-15 13:48] LABS: AST(SGOT) 9 U/L (15-37); Alanine Aminotransfer ALT/SGPT 15 U/L (13-56); Albumin, Serum 3.2 g/dL (3.2-5.0); Alkaline Phosphatase 92 U/L (45-117); Anion Gap 4 (5-15); BUN 31 mg/dL (7-18); BUN/Creat Ratio 11.7 RATIO (10-20); Bilirubin, Direct 0.16 mg/dL (0.00-0.30); Calcium,Total 9.8 mg/dL (8.5-10.1); Chloride 113 mmol/L (98-107); Creatinine, Serum 2.65 mg/dL (0.55-1.02); EST Glomerular Filtration Rate 19 mL/min (>60); Est Glom Filt Rate - Afr Amer 23 mL/min (>60); Globulin 3.1 g/dL (2.2-4.2); Glucose 79 mg/dL (74-106); Potassium 4.1 mmol/L (3.5-5.1); Protein, Total 6.3 g/dL (6.4-8.2); Sodium Level 140 mmol/L (136-145)
== END | disposition home or self-care (01) ==
LOC: MEDOUTP 12:52
PROVIDERS: PCP Family Medicine; Referring Provider Internal Medicine Infectious Disease; Visit Provider Internal Medicine Infectious Disease
DX: B99.9 Unspecified infectious disease (principal); Z16.12 Extended spectrum beta lactamase (ESBL) resistance
CPT/HCPCS: 80048; 80076; 85025; 96372

== ENCOUNTER → 2019-07-16 13:00 | Outpatient (CLI) | payer MEDICARE, SELFPAY ==
[2019-07-11 13:46] VITALS: BMI 24.4
== END ==
PROVIDERS: PCP Family Medicine; Visit Provider Internal Medicine Infectious Disease
DX: B99.9 Unspecified infectious disease (principal); Z16.12 Extended spectrum beta lactamase (ESBL) resistance
CPT/HCPCS: 96372

== ENCOUNTER 2019-07-16 13:14 | Emergency (ER) | payer MEDICARE, SELFPAY ==
[2019-07-15 13:05] VITALS: BMI 24.4
[2019-07-16 13:15] VITALS: BP 141/68; PULSE 70; RESP 16; TEMP 36.6; O2SAT 97; BMI 24.4
== END 2019-07-16 14:48 | disposition home or self-care (01) ==
LOC: ED 14:47
PROVIDERS: Emergency Provider Emergency Medicine; PCP Family Medicine
DX: B99.9 Unspecified infectious disease (principal); Z16.12 Extended spectrum beta lactamase (ESBL) resistance

== ENCOUNTER 2019-07-17 13:13 | Emergency (ER) | payer MEDICARE, SELFPAY ==
[2019-07-16 13:15] VITALS: BMI 24.4
[2019-07-17 13:14] VITALS: BP 150/62; PULSE 61; RESP 18; TEMP 37.1; O2SAT 97; BMI 24.4
[2019-07-17 13:51] VITALS: BMI 24.4
[2019-07-17] MEDS: Ertapenem Sod 1 GM/10 ML Vial 0.5 GM IM (13:54)
== END 2019-07-17 13:55 | disposition home or self-care (01) ==
LOC: ED 13:31
PROVIDERS: Emergency Provider Emergency Medicine; PCP Family Medicine
DX: B99.9 Unspecified infectious disease (principal); Z16.12 Extended spectrum beta lactamase (ESBL) resistance
CPT/HCPCS: 96372

== ENCOUNTER → 2019-07-18 | Outpatient (CLI) | payer MEDICARE, SELFPAY ==
[2019-07-11 13:46] VITALS: BMI 24.4
[2019-07-17 13:51] VITALS: BMI 24.4
[2019-07-18 13:03] VITALS: BP 153/59; PULSE 61; RESP 16; TEMP 35.9; O2SAT 99; BMI 24.4
[2019-07-18] MEDS: Ertapenem Sod 1 GM/10 ML Vial 0.5 GM IM (13:17)
== END | disposition home or self-care (01) ==
LOC: MEDOUTP 12:58
PROVIDERS: PCP Family Medicine; Referring Provider Internal Medicine Infectious Disease; Visit Provider Internal Medicine Infectious Disease
DX: B99.9 Unspecified infectious disease (principal); Z16.12 Extended spectrum beta lactamase (ESBL) resistance
CPT/HCPCS: 96372

== ENCOUNTER → 2019-07-19 | Outpatient (CLI) | payer MEDICARE, SELFPAY ==
[2019-07-11 13:46] VITALS: BMI 24.4
[2019-07-18 13:03] VITALS: BMI 24.4
[2019-07-19 13:11] VITALS: BP 148/68; PULSE 60; RESP 16; TEMP 36.2; O2SAT 100; BMI 24.4
[2019-07-19] MEDS: Ertapenem Sod 1 GM/10 ML Vial 0.5 GM IM (13:30)
== END | disposition home or self-care (01) ==
LOC: MEDOUTP 13:00
PROVIDERS: PCP Family Medicine; Referring Provider Internal Medicine Infectious Disease; Visit Provider Internal Medicine Infectious Disease
DX: B99.9 Unspecified infectious disease (principal); Z16.12 Extended spectrum beta lactamase (ESBL) resistance
CPT/HCPCS: 96372

== ENCOUNTER → 2019-07-20 | Outpatient (CLI) | payer MEDICARE, SELFPAY ==
[2019-07-11 13:46] VITALS: BMI 24.4
[2019-07-19 13:11] VITALS: BMI 24.4
[2019-07-20] MEDS: Ertapenem Sod 1 GM/10 ML Vial 0.5 GM IM (13:22)
[2019-07-20 13:23] VITALS: BP 139/52; PULSE 54; RESP 16; TEMP 36.8; O2SAT 99; BMI 24.4
== END | disposition home or self-care (01) ==
LOC: MEDOUTP 12:49
PROVIDERS: PCP Family Medicine; Referring Provider Internal Medicine Infectious Disease; Visit Provider Internal Medicine Infectious Disease
DX: B99.9 Unspecified infectious disease (principal); Z16.12 Extended spectrum beta lactamase (ESBL) resistance
CPT/HCPCS: 96372

== ENCOUNTER → 2019-07-21 | Outpatient (CLI) | payer MEDICARE, SELFPAY ==
[2019-07-11 13:46] VITALS: BMI 24.4
[2019-07-20 13:23] VITALS: BMI 24.4
[2019-07-21 13:00] VITALS: BP 139/63; PULSE 58; RESP 16; TEMP 36.6; O2SAT 98; BMI 24.4
[2019-07-21] MEDS: Ertapenem Sod 1 GM/10 ML Vial 0.5 GM IM (13:20)
[2019-07-21 13:28] LABS: Hematocrit 31.2 % (37-47); Hemoglobin 9.6 g/dL (12.0-15.0); Mean Corp Hgb Conc 30.8 g/dL (32-36); Mean Corpuscular Hgb 30.5 pg (27.0-32.0); Mean Platelet Vol. 8.7 fl (6.2-12.0); Platelet Count 245 K/mm3 (150-450); RBC Distribution Width CV 15.7 % (11.6-14.6); RBC Distribution Width SD 56.7 fl (35.1-43.9); Red Blood Count 3.15 M/mm3 (4.2-5.4); White Blood Count 6.9 K/mm3 (4.4-11.0)
[2019-07-21 13:43] LABS: AST(SGOT) 12 U/L (15-37); Alanine Aminotransfer ALT/SGPT 16 U/L (13-56); Albumin, Serum 3.2 g/dL (3.2-5.0); Alkaline Phosphatase 94 U/L (45-117); Anion Gap 6 (5-15); BUN 29 mg/dL (7-18); BUN/Creat Ratio 9.6 RATIO (10-20); Bilirubin, Direct 0.19 mg/dL (0.00-0.30); Chloride 114 mmol/L (98-107); Creatinine, Serum 3.01 mg/dL (0.55-1.02); EST Glomerular Filtration Rate 16 mL/min (>60); Est Glom Filt Rate - Afr Amer 19 mL/min (>60); Globulin 2.9 g/dL (2.2-4.2); Glucose 86 mg/dL (74-106); Potassium 4.3 mmol/L (3.5-5.1); Protein, Total 6.1 g/dL (6.4-8.2); Sodium Level 142 mmol/L (136-145)
== END | disposition home or self-care (01) ==
LOC: MEDOUTP 12:45
PROVIDERS: PCP Family Medicine; Referring Provider Internal Medicine Infectious Disease; Visit Provider Internal Medicine Infectious Disease
DX: B99.9 Unspecified infectious disease (principal); Z16.12 Extended spectrum beta lactamase (ESBL) resistance
CPT/HCPCS: 36415; 80048; 80076; 85027; 96372

== ENCOUNTER 2019-07-22 08:46 | Day surgery (SDC) | payer MEDICARE, SELFPAY ==
--- NOTE | 2019-06-22 06:56 | HP_ITS ---
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: No Is patient in pain?: No Allergies lisinopril Allergy (Verified 06/21/19 13:04) Hives Sulfa (Sulfonamide Antibiotics) Allergy (Verified 06/21/19 13:04) Hives Medications Aspirin [Aspirin, Baby] 81 mg PO DAILY 05/01/16 [History Confirmed 06/21/19] Levothyroxine [Synthroid] 75 mcg PO DAILY 02/03/18 [History Confirmed 06/21/19] Ferrous Sulfate 325 mg PO BIDCM 01/11/19 [History Confirmed 06/21/19] amiodarone 200 mg tablet 100 mg PO QDAY #45 tab 02/03/19 [Rx Confirmed 06/21/19] amlodipine 10 mg tablet 10 mg PO DAILY #90 tab 02/03/19 [Rx Confirmed 06/21/19] atorvastatin 10 mg tablet 10 mg PO DAILY #90 tab 02/03/19 [Rx Confirmed 06/21/19] clopidogrel 75 mg tablet 75 mg PO DAILY #90 tab 02/03/19 [Rx Confirmed 06/21/19] metoprolol tartrate 25 mg tablet 25 mg PO BID #180 tab 02/03/19 [Rx Confirmed 06/21/19] Acetaminophen [Tylenol Arthritis] 650 mg PO BID 04/05/19 [History Confirmed 06/21/19] [facility] Medical History Chronic renal insufficiency, stage IV (severe) (Chronic) Paroxysmal atrial fibrillation (Chronic) 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) Atherosclerosis of coronary artery of [place] heart without angina pectoris (Chronic) Essential (primary) hypertension (Chronic) Stenosis of left carotid artery (Chronic) HLD (hyperlipidemia) (Chronic) Arthritis (Chronic) Chronic renal disease, stage IV (Chronic) Normochromic normocytic anemia (Chronic) Acute pyelonephritis (Resolved) Sepsis (Resolved) Surgical History History of coronary artery stent placement (Resolved 10/09/08) history Left brachial AV fistula creation (Acute ~04/11/19) History of left-sided carotid endarterectomy (Resolved) History of total abdominal hysterectomy and bilateral salpingo-oophorectomy (Resolved) History of ureter stent (Resolved) Hx of cataract surgery (Resolved) Family History Mother CVA (cerebral vascular accident) Hypertension Alcoholism Heart disease Father Heart disease Social History (Updated 06/22/19 @ 07:00 by Esther Krause PA-C) alcohol intake: never substance use type: does not use HPI HPI HPI: ERNESTO KATZ, is a 78 F who presents to the office today for HPI HPI Surgical H&P: Yes HPI: Patient is a 78 y/o F I am following for stage IV chronic renal failure. Dr. Cheng performed a stage I left upper extremity basilic vein to brachial artery arteriovenous fistula creation on 04/11/19. Patient tolerated the procedure well. Patient denies numbness/tingling. She notes soreness/bruising of the left forearm. She denies drainage at the incision. Patient returns today for a follow-up and update history and physical. She denies any changes. She is not currently on dialysis. She notes recent treatment of a UTI. She denies recent hospitalizations. Patient denies previous complications with anesthesia. She denies pain at the fistula site. ROS General General: Yes fatigue; no weight change, appetite, colon cancer, breast cancer or weakness HEENT HEENT: No difficulty swallowing, eye injury, eye surgery, swollen glands or hoarseness Endo Endocrine: No thyroid disease, diabetes mellitus, thyroid cancer, Hair loss, heat intolerance or cold intolerance Skin Skin: No rash or changing moles Breast Breast: No left breast lump, right breast lump, nipple discharge, breast pain, abnormal mammogram, abnormal US or breast enlargement Musc Musculoskeletal: Yes arthritis; no back problems, rheumatoid arthritis, gout or joint pain Cardio Cardiovascular: Yes high blood pressure and heart stent; no murmur, pacemaker, heart disease, atrial fibrillation, heart attack, palpitations, shortness of breat with exertion or chest pain Psych Psychiatric: No depression, anxiety or hearing voices Resp Respiratory: No shortness of breath, No sleep apnea, No cough, No COPD, No asthma, No emphysema, No wheezing Gastro Gastrointestinal: No abdominal pain, No nausea or vomiting, No diarrhea, Yes constipation, No blood in stool, No acid reflux, No hemorrhoids, No ulcers, No gallbladder problem, Yes black,tarry stools Owen Hematologic: Yes blood thinners, No blood disorders, No bleeding, Yes anemia, No blood clots Neuro Neurologic: No weakness Exam Const General: cooperative, healthy appearing, comfortable, no acute distress HENRI Head: normal to inspection Eyes General: appearance normal, both eyes and all related structures Neck Neck: normal visual inspection Neck mass: No Chest Breast Palpation: No nipple discharge Resp Effort & Inspection: normal respiratory effort Auscultation: clear to auscultation bilaterally Cardio Rate: regular rate Rhythm: regular rhythm Heart Sounds: no murmurs GI Inspection: normal to inspection Palpation: soft Auscultation: normal bowel sounds Skin General: no rashes or lesions noted Neuro General: no focal motor deficits, CN's II-XI intact bilaterally Extrem Other: Left upper extremity AV fistula- good pulse, bruit and thrill. Nicely healed incision. Psych Appearance: grossly normal Affect: normal affect Assessment & Plan Problems 1. Chronic renal insufficiency, stage IV (severe) N18.[address] Cheng will plan to perform stage II transposition of the left upper extremity basilic vein to brachial artery arteriovenous fistula creation. Procedure details, risks and benefits have been explained to the patient. Patient has had the opportunity to ask and have questions answered. Patient verbally understands and agrees with the plan. She is maintained on Plavix an aspirin. She will hold these two medications for 3 days prior to the procedure. Coding Level of Care Code No Charge Diagnoses Chronic renal insufficiency, stage IV (severe) N18.4 Comment Update H&P 06/22/19 0700 <Electronically signed by Esther welsh PA-C> Date _ Esther Krause PA-C
[2019-07-06 15:27] VITALS: BMI 24.3
[2019-07-21 13:00] VITALS: BMI 24.4
[2019-07-22] VITALS (7 sets, daily range): BP systolic 101–156; BP diastolic 45–80; PULSE 52–59; RESP 15–16; TEMP 36.2–36.5; O2SAT 95–100; BMI 24.4
[2019-07-22] MEDS: Ertapenem Sod 1 GM/10 ML Vial 0.5 GM IM (09:48)
[2019-07-22] MEDS: Lactated Ringers 1,000 ML 100 ML IV (09:50)
--- NOTE | 2019-07-22 10:19 | DCINST_ITS ---
Discharge Diet: Light diet - advance as tolerated Discharge Activity: Return to Normal Activity Allergies/Adverse Reactions: Allergies lisinopril Allergy (Verified 07/22/19 09:36) Hives Sulfa (Sulfonamide Antibiotics) Allergy (Verified 07/22/19 09:36) Hives Medications to take at Discharge Aspirin [Aspirin, Baby] 81 mg PO DAILY 05/01/16 Levothyroxine [Synthroid] 75 mcg PO DAILY 02/03/18 Ferrous Sulfate 325 mg PO TID 01/11/19 metoprolol tartrate 25 mg tablet 25 mg PO BID #180 tab 02/03/19 Acetaminophen [Tylenol Arthritis] 650 mg PO BID 04/05/19 Amiodarone HCl 100 mg PO QDAY 07/06/19 Amlodipine Besylate 5 mg PO DAILY 07/06/19 Atorvastatin Calcium 10 mg PO QHS 07/06/19 Clopidogrel Bisulfate [Clopidogrel] 75 mg PO DAILY 07/06/19 Ertapenem Sod [Invanz] 0.5 gm IM DAILY 28 Days #14 vial 07/07/19 Primary Care Physician: Brett Flores DO [Primary Care Provider] - Test Results: Test results from this visit will be discussed in further detail at your follow- up appointment, if applicable. Please Follow Up With: Simone Garcia MD When: in 2 weeks, please call to make an appointment.
[2019-07-22] MEDS: Lidocaine Jelly 2% 20 ML Syringe (URO-JET) 20 APPLIC (10:29)
--- NOTE | 2019-07-22 10:40 | OP.PCM_ITS ---
Report of Operation Date of Procedure: 07/22/19 Pre-Operative Diagnosis: Bilateral ureteral obstruction, chronic renal ins ufficiency, chronic urinary tract infections. Post-Operative Diagnosis: The same Surgery/Procedure Performed:: Cystoscopy and right stent exchange, and left stent exchange. Description of Surgical Findings:: 78-year-old female who unfortunately has chronic urinary tract infections she has chronic bilateral obstruction of both ureters managed with stents. She has a very resistant urinary tract infection is currently on broad-spectrum antibiotics infectious diseases requested I change his stents while she is on antibiotics and hoping to clear her of all of the infection. I spoke to the patient regarding this I told her there is no guarantees as a work but so it is possible he can try to get her infections clear if he changes stents while she is on broad-spectrum antibiotics she understands is possible the infections could come back and she could just have chronic UTIs. 78-year-old female taken back to the operating room after smooth induction of a MAC local she was placed upon the table in dorsolithotomy position, the urethrovaginal area prepped and draped in usual sterile fashion, I instilled lidocaine jelly into the bladder, she did have a significant cystocele. Once inside the bladder there is a lot of debris within the bladder I grabbed the right stent pulled out the meatus advance a wire through and then the wire went up into the right kidney backloaded over the wire with the cystoscope and then advanced a new stent on the right side was a 6 [place] by 26 cm stent once a stent was in good position and pulled the wire and the stent: Kidney bladder good was good position. And then went back in the bladder and grabbed the left stent pulled out the meatus put a wire through the left stent all the way to the kidney backloaded the cystoscope over the wire and then advanced a new 6 [place] by 26 cm stent on the left side once both stents were in good position I drained the bladder pulled the wire the stents were both coiled in the bladder up in the kidney on x-ray. Patient anesthetic was reversed taken back to PACU good condition I will see her back in about 2 weeks. Type of Anesthesia:: Local MAC Drains: none - Admit VTE Documentation VTE Present on Admission: No VTE Mechan Device Prophylaxis: SCD's
== END 2019-07-22 11:54 | disposition home or self-care (01) ==
LOC: SDC 08:46 → AC 09:00
PROVIDERS: PCP Family Medicine; Referring Provider Urology; Visit Provider Urology
PROC: (CPT 52332; principal; 2019-07-22 10:30)
DX: N13.1 Hydronephrosis with ureteral stricture, not elsewhere classified (principal); N30.00 Acute cystitis without hematuria; R39.14 Feeling of incomplete bladder emptying; I13.10 Hypertensive heart and chronic kidney disease without heart failure, with stage 1 through stage 4 chronic kidney disease, or unspecified chronic kidney disease; N18.4 Chronic kidney disease, stage 4 (severe); D63.1 Anemia in chronic kidney disease; E06.9 Thyroiditis, unspecified; E78.00 Pure hypercholesterolemia, unspecified; Z87.440 Personal history of urinary (tract) infections; Z95.5 Presence of coronary angioplasty implant and graft; Z79.02 Long term (current) use of antithrombotics/antiplatelets; Z79.82 Long term (current) use of aspirin; Z79.899 Other long term (current) drug therapy
CPT/HCPCS: 00910; 52332; 76000; J7120; C1769; C2617; J2405

== ENCOUNTER 2019-07-23 12:58 | Emergency (ER) | payer MEDICARE, SELFPAY ==
[2019-07-22 09:39] VITALS: BMI 24.4
[2019-07-23 12:58] VITALS: BP 142/65; PULSE 61; RESP 16; TEMP 36.5; O2SAT 98; BMI 25.2; BMI 26.0
[2019-07-23] MEDS: Ertapenem Sod 1 GM/10 ML Vial 0.5 GM IM (13:36)
== END 2019-07-23 16:38 | disposition home or self-care (01) ==
LOC: ED 13:20
PROVIDERS: Emergency Provider Emergency Medicine; PCP Family Medicine
DX: B99.9 Unspecified infectious disease (principal); Z16.12 Extended spectrum beta lactamase (ESBL) resistance
CPT/HCPCS: 96372

== ENCOUNTER 2019-07-24 12:48 | Emergency (ER) | payer MEDICARE, SELFPAY ==
[2019-07-23 12:58] VITALS: BMI 26.0
[2019-07-24 12:55] VITALS: BP 149/66; PULSE 58; RESP 17; TEMP 36.2; O2SAT 99; BMI 24.4
[2019-07-24 13:30] VITALS: BMI 24.4
[2019-07-24] MEDS: Ertapenem Sod 1 GM/10 ML Vial 0.5 GM IM (13:30)
== END 2019-07-24 13:35 | disposition home or self-care (01) ==
PROVIDERS: Emergency Provider Emergency Medicine; PCP Family Medicine
DX: B99.9 Unspecified infectious disease (principal); Z16.12 Extended spectrum beta lactamase (ESBL) resistance
CPT/HCPCS: 96372

== ENCOUNTER → 2019-07-25 | Outpatient (CLI) | payer MEDICARE, SELFPAY ==
[2019-07-11 13:46] VITALS: BMI 24.4
[2019-07-24 13:30] VITALS: BMI 24.4
[2019-07-25 13:06] VITALS: BP 140/65; PULSE 64; RESP 16; TEMP 36; O2SAT 95; BMI 24.4
[2019-07-25] MEDS: Ertapenem Sod 1 GM/10 ML Vial 0.5 GM IM (13:22)
== END | disposition home or self-care (01) ==
LOC: MEDOUTP 13:00
PROVIDERS: PCP Family Medicine; Referring Provider Internal Medicine Infectious Disease; Visit Provider Internal Medicine Infectious Disease
DX: B99.9 Unspecified infectious disease (principal); Z16.12 Extended spectrum beta lactamase (ESBL) resistance
CPT/HCPCS: 96372

== ENCOUNTER → 2019-07-26 | Outpatient (CLI) | payer MEDICARE, SELFPAY ==
[2019-07-11 13:46] VITALS: BMI 24.4
[2019-07-25 13:06] VITALS: BMI 24.4
[2019-07-26 13:09] VITALS: BP 156/60; PULSE 58; RESP 16; TEMP 36.3; O2SAT 98; BMI 24.4
[2019-07-26] MEDS: Ertapenem Sod 1 GM/10 ML Vial 0.5 GM IM (13:27)
== END | disposition home or self-care (01) ==
LOC: MEDOUTP 13:00
PROVIDERS: PCP Family Medicine; Referring Provider Internal Medicine Infectious Disease; Visit Provider Internal Medicine Infectious Disease
DX: B99.9 Unspecified infectious disease (principal); Z16.12 Extended spectrum beta lactamase (ESBL) resistance
CPT/HCPCS: 96372

== ENCOUNTER → 2019-07-27 10:11 | Outpatient (CLI) | payer MEDICARE, SELFPAY ==
[2019-07-11 13:46] VITALS: BMI 24.4
[2019-07-26 13:09] VITALS: BMI 24.4
[2019-07-27 11:08] VITALS: BP 135/50; PULSE 58; RESP 16; TEMP 36.5; O2SAT 99; BMI 24.4
[2019-07-27] MEDS: Ertapenem Sod 1 GM/10 ML Vial 0.5 GM IM (11:13)
== END ==
PROVIDERS: PCP Family Medicine; Referring Provider Internal Medicine Infectious Disease; Visit Provider Internal Medicine Infectious Disease
DX: B99.9 Unspecified infectious disease (principal); Z16.12 Extended spectrum beta lactamase (ESBL) resistance
CPT/HCPCS: 96372

== ENCOUNTER → 2019-07-28 | Outpatient (CLI) | payer MEDICARE, SELFPAY ==
[2019-07-11 13:46] VITALS: BMI 24.4
[2019-07-27 11:08] VITALS: BMI 24.4
[2019-07-28 13:04] VITALS: BP 150/62; PULSE 62; RESP 16; TEMP 35.5; O2SAT 97; BMI 24.4
[2019-07-28 13:41] LABS: Hematocrit 31.1 % (37-47); Hemoglobin 9.7 g/dL (12.0-15.0); Mean Corp Hgb Conc 31.2 g/dL (32-36); Mean Corpuscular Hgb 30.4 pg (27.0-32.0); Mean Corpuscular Volume 97.5 fL (81-99); Mean Platelet Vol. 8.9 fl (6.2-12.0); Platelet Count 191 K/mm3 (150-450); RBC Distribution Width SD 58.4 fl (35.1-43.9); Red Blood Count 3.19 M/mm3 (4.2-5.4)
[2019-07-28 13:55] LABS: AST(SGOT) 18 U/L (15-37); Alanine Aminotransfer ALT/SGPT 18 U/L (13-56); Albumin, Serum 3.3 g/dL (3.2-5.0); Alkaline Phosphatase 90 U/L (45-117); Anion Gap 3 (5-15); BUN 28 mg/dL (7-18); BUN/Creat Ratio 9.5 RATIO (10-20); Bilirubin, Direct 0.21 mg/dL (0.00-0.30); Calcium,Total 9.7 mg/dL (8.5-10.1); Chloride 112 mmol/L (98-107); Creatinine, Serum 2.96 mg/dL (0.55-1.02); EST Glomerular Filtration Rate 16 mL/min (>60); Est Glom Filt Rate - Afr Amer 20 mL/min (>60); Estimated Creatinine Clearance 13.38 ml/min; Globulin 2.8 g/dL (2.2-4.2); Glucose 85 mg/dL (74-106); Potassium 4.5 mmol/L (3.5-5.1); Protein, Total 6.1 g/dL (6.4-8.2); Sodium Level 140 mmol/L (136-145)
[2019-07-28] MEDS: Ertapenem Sod 1 GM/10 ML Vial 0.5 GM IM (14:10)
== END | disposition home or self-care (01) ==
LOC: MEDOUTP 12:57
PROVIDERS: PCP Family Medicine; Referring Provider Internal Medicine Infectious Disease; Visit Provider Internal Medicine Infectious Disease
DX: B99.9 Unspecified infectious disease (principal); Z16.12 Extended spectrum beta lactamase (ESBL) resistance
CPT/HCPCS: 36415; 80048; 80076; 85027; 96372

== ENCOUNTER → 2019-07-29 | Outpatient (CLI) | payer MEDICARE, SELFPAY ==
[2019-07-11 13:46] VITALS: BMI 24.4
[2019-07-28 13:04] VITALS: BMI 24.4
[2019-07-29 13:07] VITALS: BP 142/77; PULSE 62; RESP 16; TEMP 36.1; O2SAT 97; BMI 24.4
[2019-07-29] MEDS: Ertapenem Sod 1 GM/10 ML Vial 0.5 GM IM (13:34)
== END | disposition home or self-care (01) ==
LOC: MEDOUTP 12:54
PROVIDERS: PCP Family Medicine; Referring Provider Internal Medicine Infectious Disease; Visit Provider Internal Medicine Infectious Disease
DX: B99.9 Unspecified infectious disease (principal); Z16.12 Extended spectrum beta lactamase (ESBL) resistance
CPT/HCPCS: 96372

== ENCOUNTER 2019-08-01 05:30 | Day surgery (SDC) | payer MEDICARE, SELFPAY ==
[2019-06-21 13:05] VITALS: BMI 25.9
--- NOTE | 2019-06-22 06:56 | HP_ITS ---
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 Is patient in pain?: No Allergies lisinopril Allergy (Verified 06/21/19 13:04) Hives Sulfa (Sulfonamide Antibiotics) Allergy (Verified 06/21/19 13:04) Hives Medications Aspirin [Aspirin, Baby] 81 mg PO DAILY 05/01/16 [History Confirmed 06/21/19] Levothyroxine [Synthroid] 75 mcg PO DAILY 02/03/18 [History Confirmed 06/21/19] Ferrous Sulfate 325 mg PO BIDCM 01/11/19 [History Confirmed 06/21/19] amiodarone 200 mg tablet 100 mg PO QDAY #45 tab 02/03/19 [Rx Confirmed 06/21/19] amlodipine 10 mg tablet 10 mg PO DAILY #90 tab 02/03/19 [Rx Confirmed 06/21/19] atorvastatin 10 mg tablet 10 mg PO DAILY #90 tab 02/03/19 [Rx Confirmed 06/21/19] clopidogrel 75 mg tablet 75 mg PO DAILY #90 tab 02/03/19 [Rx Confirmed 06/21/19] metoprolol tartrate 25 mg tablet 25 mg PO BID #180 tab 02/03/19 [Rx Confirmed 06/21/19] Acetaminophen [Tylenol Arthritis] 650 mg PO BID 04/05/19 [History Confirmed 06/21/19] [facility] Medical History Chronic renal insufficiency, stage IV (severe) (Chronic) Paroxysmal atrial fibrillation (Chronic) 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) Atherosclerosis of coronary artery of [place] heart without angina pectoris (Chronic) Essential (primary) hypertension (Chronic) Stenosis of left carotid artery (Chronic) HLD (hyperlipidemia) (Chronic) Arthritis (Chronic) Chronic renal disease, stage IV (Chronic) Normochromic normocytic anemia (Chronic) Acute pyelonephritis (Resolved) Sepsis (Resolved) Surgical History History of coronary artery stent placement (Resolved 10/09/08) history Left brachial AV fistula creation (Acute ~04/11/19) History of left-sided carotid endarterectomy (Resolved) History of total abdominal hysterectomy and bilateral salpingo-oophorectomy (Resolved) History of ureter stent (Resolved) Hx of cataract surgery (Resolved) Family History Mother CVA (cerebral vascular accident) Hypertension Alcoholism Heart disease Father Heart disease Social History (Updated 06/22/19 @ 07:00 by Esther Krause PA-C) alcohol intake: never substance use type: does not use HPI HPI HPI: ENRESTO KATZ, is a 78 F who presents to the office today for HPI HPI Surgical H&P: Yes HPI: Patient is a 78 y/o F I am following for stage IV chronic renal failure. Dr. Cheng performed a stage I left upper extremity basilic vein to brachial artery arteriovenous fistula creation on 04/11/19. Patient tolerated the procedure well. Patient denies numbness/tingling. She notes soreness/bruising of the left forearm. She denies drainage at the incision. Patient returns today for a follow-up and update history and physical. She denies any changes. She is not currently on dialysis. She notes recent treatment of a UTI. She denies recent hospitalizations. Patient denies previous complications with anesthesia. She denies pain at the fistula site. ROS General General: Yes fatigue; no weight change, appetite, colon cancer, breast cancer or weakness HEENT HEENT: No difficulty swallowing, eye injury, eye surgery, swollen glands or hoarseness Endo Endocrine: No thyroid disease, diabetes mellitus, thyroid cancer, Hair loss, heat intolerance or cold intolerance Skin Skin: No rash or changing moles Breast Breast: No left breast lump, right breast lump, nipple discharge, breast pain, abnormal mammogram, abnormal US or breast enlargement Musc Musculoskeletal: Yes arthritis; no back problems, rheumatoid arthritis, gout or joint pain Cardio Cardiovascular: Yes high blood pressure and heart stent; no murmur, pacemaker, heart disease, atrial fibrillation, heart attack, palpitations, shortness of breat with exertion or chest pain Psych Psychiatric: No depression, anxiety or hearing voices Resp Respiratory: No shortness of breath, No sleep apnea, No cough, No COPD, No asthma, No emphysema, No wheezing Gastro Gastrointestinal: No abdominal pain, No nausea or vomiting, No diarrhea, Yes constipation, No blood in stool, No acid reflux, No hemorrhoids, No ulcers, No gallbladder problem, Yes black,tarry stools Owen Hematologic: Yes blood thinners, No blood disorders, No bleeding, Yes anemia, No blood clots Neuro Neurologic: No weakness Exam Const General: cooperative, healthy appearing, comfortable, no acute distress HENUT Head: normal to inspection Eyes General: appearance normal, both eyes and all related structures Neck Neck: normal visual inspection Neck mass: No Chest Breast Palpation: No nipple discharge Resp Effort & Inspection: normal respiratory effort Auscultation: clear to auscultation bilaterally Cardio Rate: regular rate Rhythm: regular rhythm Heart Sounds: no murmurs GI Inspection: normal to inspection Palpation: soft Auscultation: normal bowel sounds Skin General: no rashes or lesions noted Neuro General: no focal motor deficits, CN's II-XI intact bilaterally Extrem Other: Left upper extremity AV fistula- good pulse, bruit and thrill. Nicely healed incision. Psych Appearance: grossly normal Affect: normal affect Assessment & Plan Problems 1. Chronic renal insufficiency, stage IV (severe) N18.[address] Cheng will plan to perform stage II transposition of the left upper extremity basilic vein to brachial artery arteriovenous fistula creation. Procedure details, risks and benefits have been explained to the patient. Patient has had the opportunity to ask and have questions answered. Patient verbally understands and agrees with the plan. She is maintained on Plavix an aspirin. She will hold these two medications for 3 days prior to the procedure. Coding Level of Care Code No Charge Diagnoses Chronic renal insufficiency, stage IV (severe) N18.4 Comment Update H&P 06/22/19 0700 <Electronically signed by Esther welsh PA-C> Date _ Esther Krause PA-C
[2019-07-29 13:07] VITALS: BMI 24.4
--- NOTE | 2019-08-01 05:54 | PCM.HP.BLA ---
Problem List (1) Chronic renal insufficiency, stage IV (severe) Status: Chronic History and Physical Date of Admission: 08/01/19 Intake Visit Reasons: Fistula RC 04/11 Chief Complaint: recheck fistula/update history and physical for stage 2 transposition Communication Manager Required: No Is patient in pain?: No Allergies lisinopril Allergy (Verified 06/21/19 13:04) Hives Sulfa (Sulfonamide Antibiotics) Allergy (Verified 06/21/19 13:04) Hives Medications Aspirin [Aspirin, Baby] 81 mg PO DAILY 05/01/16 [History Confirmed 06/21/19] Levothyroxine [Synthroid] 75 mcg PO DAILY 02/03/18 [History Confirmed 06/21/19] Ferrous Sulfate 325 mg PO BIDCM 01/11/19 [History Confirmed 06/21/19] amiodarone 200 mg tablet 100 mg PO QDAY #45 tab 02/03/19 [Rx Confirmed 06/21/19] amlodipine 10 mg tablet 10 mg PO DAILY #90 tab 02/03/19 [Rx Confirmed 06/21/19] atorvastatin 10 mg tablet 10 mg PO DAILY #90 tab 02/03/19 [Rx Confirmed 06/21/19] clopidogrel 75 mg tablet 75 mg PO DAILY #90 tab 02/03/19 [Rx Confirmed 06/21/19] metoprolol tartrate 25 mg tablet 25 mg PO BID #180 tab 02/03/19 [Rx Confirmed 06/21/19] Acetaminophen [Tylenol Arthritis] 650 mg PO BID 04/05/19 [History Confirmed 06/21/19] [facility] Medical History Chronic renal insufficiency, stage IV (severe) (Chronic) Paroxysmal atrial fibrillation (Chronic) 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) Atherosclerosis of coronary artery of [place] heart without angina pectoris (Chronic) Essential (primary) hypertension (Chronic) Stenosis of left carotid artery (Chronic) HLD (hyperlipidemia) (Chronic) Arthritis (Chronic) Chronic renal disease, stage IV (Chronic) Normochromic normocytic anemia (Chronic) Acute pyelonephritis (Resolved) Sepsis (Resolved) Surgical History History of coronary artery stent placement (Resolved 10/09/08) history Left brachial AV fistula creation (Acute ~04/11/19) History of left-sided carotid endarterectomy (Resolved) History of total abdominal hysterectomy and bilateral salpingo-oophorectomy (Resolved) History of ureter stent (Resolved) Hx of cataract surgery (Resolved) Family History Mother CVA (cerebral vascular accident) Hypertension Alcoholism Heart disease Father Heart disease Social History (Updated 06/22/19 @ 07:00 by Esther Krause PA-C) alcohol intake: never substance use type: does not use HPI HPI HPI: ERNESTO KATZ, is a 78 F who presents to the office today for HPI HPI Surgical H&P: Yes HPI: Patient is a 78 y/o F I am following for stage IV chronic renal failure. Dr. Cheng performed a stage I left upper extremity basilic vein to brachial artery arteriovenous fistula creation on 04/11/19. Patient tolerated the procedure well. Patient denies numbness/tingling. She notes soreness/bruising of the left forearm. She denies drainage at the incision. Patient returns today for a follow-up and update history and physical. She denies any changes. She is not currently on dialysis. She notes recent treatment of a UTI. She denies recent hospitalizations. Patient denies previous complications with anesthesia. She denies pain at the fistula site. ROS General General: Yes fatigue; no weight change, appetite, colon cancer, breast cancer or weakness HEENT HEENT: No difficulty swallowing, eye injury, eye surgery, swollen glands or hoarseness Endo Endocrine: No thyroid disease, diabetes mellitus, thyroid cancer, Hair loss, heat intolerance or cold intolerance Skin Skin: No rash or changing moles Breast Breast: No left breast lump, right breast lump, nipple discharge, breast pain, abnormal mammogram, abnormal US or breast enlargement Musc Musculoskeletal: Yes arthritis; no back problems, rheumatoid arthritis, gout or joint pain Cardio Cardiovascular: Yes high blood pressure and heart stent; no murmur, pacemaker, heart disease, atrial fibrillation, heart attack, palpitations, shortness of breat with exertion or chest pain Psych Psychiatric: No depression, anxiety or hearing voices Resp Respiratory: No shortness of breath, No sleep apnea, No cough, No COPD, No asthma, No emphysema, No wheezing Gastro Gastrointestinal: No abdominal pain, No nausea or vomiting, No diarrhea, Yes constipation, No blood in stool, No acid reflux, No hemorrhoids, No ulcers, No gallbladder problem, Yes black,tarry stools [place] Hematologic: Yes blood thinners, No blood disorders, No bleeding, Yes anemia, No blood clots Neuro Neurologic: No weakness Exam Const General: cooperative, healthy appearing, comfortable, no acute distress [facility] Head: normal to inspection Eyes General: appearance normal, both eyes and all related structures Neck Neck: normal visual inspection Neck mass: No Chest Breast Palpation: No nipple discharge Resp Effort & Inspection: normal respiratory effort Auscultation: clear to auscultation bilaterally Cardio Rate: regular rate Rhythm: regular rhythm Heart Sounds: no murmurs GI Inspection: normal to inspection Palpation: soft Auscultation: normal bowel sounds Skin General: no rashes or lesions noted Neuro General: no focal motor deficits, CN's II-XI intact bilaterally Extrem Other: Left upper extremity AV fistula- good pulse, bruit and thrill. Nicely healed incision. Psych Appearance: grossly normal Affect: normal affect Assessment & Plan Problems 1. Chronic renal insufficiency, stage IV (severe) N18.[address] Cheng will plan to perform stage II transposition of the left upper extremity basilic vein to brachial artery arteriovenous fistula creation. Procedure details, risks and benefits have been explained to the patient. Patient has had the opportunity to ask and have questions answered. Patient verbally understands and agrees with the plan. She is maintained on Plavix an aspirin. She will hold these two medications for 3 days prior to the procedure. Coding Level of Care Code No Charge Diagnoses Chronic renal insufficiency, stage IV (severe) N18.4 I have re-examined the patient. There are no clinical changes since date of exam.
[2019-08-01 05:56] VITALS: BP 149/59; PULSE 56; RESP 14; TEMP 36.3; O2SAT 98; BMI 25.4
[2019-08-01] MEDS: 0.45% Normal Saline 1,000 ML 15 ML IV (06:20)
[2019-08-01] MEDS: Cefazolin 2 GM in 0.9% Normal Saline 100 ML IV (07:12)
--- NOTE | 2019-08-01 07:14 | PCM.DC.FIST ---
Discharge Diet: Renal Diet Discharge Activity: May Not Drive - for 2-3 days or while taking narcotic pain medications., May Shower - May shower in 3 days, May Take a Tub Bath - in 5 days. Lifting Restrictions: 5 pounds Keep extremity elevated above heart level: - - Keep arm elevated above the heart level for 3 days. Additional Activity Instructions:: Exercise hand vigorously with a stress ball. Call your doctor if your incision/area has: Continuous Slow Oozing, Sudden Increased Bleeding - apply pressure and call your doctor., Increased Pain/ Swelling, Increased Redness, Foul Smelling Discharge Call your doctor if you observe: Fever of 101 or Higher Suture Line Care: Avoid Pulling/Pushing, Avoid Pinching/Bending Cleanse incision/area with: Keep Dressing Clean & Dry Additional Dressing/Incision Instructions:: Elevate your arm for comfort. You may utilize ice as needed to try to limit swelling. Leave the elastic wrap on for approximately 3 days then you may remove it. Leave the Steri-Strips then on for an additional 1 week. Allergies/Adverse Reactions: Allergies lisinopril Allergy (Verified 07/27/19 10:30) Hives Sulfa (Sulfonamide Antibiotics) Allergy (Verified 07/27/19 10:30) Hives Medications to take at Discharge Aspirin [Aspirin, Baby] 81 mg PO DAILY 05/01/16 Levothyroxine [Synthroid] 75 mcg PO DAILY 02/03/18 Ferrous Sulfate 325 mg PO TID 01/11/19 metoprolol tartrate 25 mg tablet 25 mg PO BID #180 tab 02/03/19 Acetaminophen [Tylenol Arthritis] 650 mg PO BID 04/05/19 Amiodarone HCl 100 mg PO QDAY 07/06/19 Amlodipine Besylate 5 mg PO DAILY 07/06/19 Atorvastatin Calcium 10 mg PO QHS 07/06/19 Clopidogrel Bisulfate [Clopidogrel] 75 mg PO DAILY 07/06/19 Orders to be completed after discharge: Basic Metabolic Profile (BMP) Time Frame: 07/04/19, Facility: [facility], Location: Laboratory CBC-Complete Blood Cnt No Diff Time Frame: 07/04/19, Facility: [facility], Location: Laboratory Primary Care Physician: Brett Flores DO [Primary Care Provider] - Test Results: Test results from this visit will be discussed in further detail at your follow-up appointment, if applicable. Please Follow Up With: Antonio Cheng MD - [phone] When: Call to make an appointment for suture removal and follow up in 10 days.
[2019-08-01] MEDS: Heparin Injection (Vial) 5,000 UNIT/ML VIAL 5000 UNIT (07:17)
[2019-08-01] MEDS: Bupivacaine Mpf 0.5% 30 ML VIAL (07:38)
--- NOTE | 2019-08-01 09:23 | OP.PCM_ITS ---
Problem List (1) Chronic renal insufficiency, stage IV (severe) Status: Chronic Report of Operation Date of Procedure: 08/01/19 Pre-Operative Diagnosis: Stage IV chronic renal insufficiency in need of arteriovenous access for hemodialysis Post-Operative Diagnosis: Same Surgery/Procedure Performed:: Stage II transposition left upper extremity basilic vein to brachial artery arteriovenous hemodialysis fistula creation Description of Surgical Findings:: Timeout and informed consent was obtained. 78-year-old female was taken out from placement table underwent general anesthesia. Ancef 2 g given intravenously preoperatively because of the extent of the soft tissue dissection and the fact that the patient could require a prosthetic patch for flow reduction. The procedure was felt to be clean case. The left extremity was sterilely prepped and draped. Throughout the procedure 1% lidocaine mixed 50-50 with 0.5% Marcaine was used 13 cc was used and 7 cc of half percent lidocaine w as used as local anesthetic. Ultrasound was used to map the course of the vein. Longitudinal incision was made the medial aspect of the left upper arm sharp dissection carried down to the basilic vein it was tediously dissected free side branches were secured with 3-0 Vicryl ligatures were indicated as well as hemoclips. The vein was very large and matured. This dissected free to the shoulder. Then it was measured. Curvilinear position more in the anterior aspect of the arm in a curvilinear fashion was planned. I then identified the site to I dissect free the brachial artery. Sharp and blunt dissection was used to identify the brachial artery and this was dissected free. The patient had a 2-3+ left radial pulse. The fistula was ligated distally with a 2-0 Vicryl suture ligature. A tunneler was placed in a curvilinear fashion to the upper arm where the vein was then extracted through the tunneler. The vein had been marked to assure no curvature. The patient received 6000 units of heparin. Peripheral vascular clamps were placed on the brachial artery and 11 blade was used to make an arteriotomy which was extended with Mary scissors. A end-to-side venous to arterial anastomosis was created because the vein had matured so greatly I imbricated the vein which each suture so as to not to create an overly large anastomosis. Very nice approximation was achieved. Hemostasis was nicely intact. There was a good pulse and thrill within the fistula. The fistula appeared to lie in good position. The hand remained with a 2-3+ radial pulse was pink with good capillary refill. The patient received 30 mg of protamine. The subcutaneous tissue was approximated the deep tissue with multiple sutures of 3-0 Vicryl so as to close the space. Skin edges were then approximated running septic or 4 Monocryl. Telfa ABD soft roll Jerry wrap applied. Sponge and instrument and needle counts were reported the surgeon be correct. Specimens none. Drains none. Blood loss 200 cc. The patient was taken to the recovery area in satisfactory edition without apparent complication Antonio Cheng M.D., F.A.C.S. Type of Anesthesia:: General Anesthesiologist: Gorge Padron
[2019-08-01 09:53] VITALS: BP 125/59; BP 149/59; PULSE 57; RESP 16; TEMP 35.8; O2SAT 97
[2019-08-01 10:00] VITALS: BP 125/56; BP 149/59; PULSE 56; RESP 18; O2SAT 98
[2019-08-01 10:15] VITALS: BP 125/58; BP 149/59; PULSE 55; RESP 18; O2SAT 94
[2019-08-01 10:20] VITALS: BP 123/57; BP 149/59; PULSE 53; RESP 18; TEMP 36.1; O2SAT 95
[2019-08-01 11:34] VITALS: BP 139/53; BP 149/59; PULSE 53; RESP 16; TEMP 35.9; O2SAT 91
== END 2019-08-01 11:38 | disposition home or self-care (01) ==
LOC: SDC 05:33 → AC 05:36
PROVIDERS: PCP Family Medicine; Referring Provider Surgery; Visit Provider Surgery
PROC: (CPT 36819; principal; 2019-08-01 07:00)
DX: I12.9 Hypertensive chronic kidney disease with stage 1 through stage 4 chronic kidney disease, or unspecified chronic kidney disease (principal); N18.4 Chronic kidney disease, stage 4 (severe); I48.91 Unspecified atrial fibrillation; D64.9 Anemia, unspecified; E78.00 Pure hypercholesterolemia, unspecified; E06.9 Thyroiditis, unspecified; Z95.5 Presence of coronary angioplasty implant and graft; Z79.02 Long term (current) use of antithrombotics/antiplatelets; Z79.82 Long term (current) use of aspirin; Z79.899 Other long term (current) drug therapy
CPT/HCPCS: 01844; 36819; J2405

== ENCOUNTER → 2019-08-12 | Outpatient (CLI) | payer MEDICARE, SELFPAY ==
[2019-08-01 05:56] VITALS: BMI 25.4
[2019-08-12 10:53] LABS: Hematocrit 28.9 % (37-47); Mean Corp Hgb Conc 31.1 g/dL (32-36); Mean Corpuscular Hgb 30.1 pg (27.0-32.0); Mean Corpuscular Volume 96.7 fL (81-99); Mean Platelet Vol. 8.9 fl (6.2-12.0); Platelet Count 280 K/mm3 (150-450); RBC Distribution Width CV 16.6 % (11.6-14.6); Red Blood Count 2.99 M/mm3 (4.2-5.4); White Blood Count 26.5 K/mm3 (4.4-11.0)
[2019-08-12 11:20] LABS: PTHIN 216.6 pg/mL (18.4-80.1)
[2019-08-12 11:25] LABS: Albumin, Serum 2.7 g/dL (3.2-5.0); BUN 45 mg/dL (7-18); BUN/Creat Ratio 12.9 RATIO (10-20); Calcium,Total 9.8 mg/dL (8.5-10.1); Chloride 112 mmol/L (98-107); Creatinine, Serum 3.49 mg/dL (0.55-1.02); EST Glomerular Filtration Rate 14 mL/min (>60); Est Glom Filt Rate - Afr Amer 16 mL/min (>60); Glucose 97 mg/dL (74-106); Phosphorus 2.5 mg/dL (2.5-4.9); Potassium 3.8 mmol/L (3.5-5.1); Sodium Level 139 mmol/L (136-145)
== END | disposition home or self-care (01) ==
LOC: LAB 10:14
PROVIDERS: PCP Family Medicine; Referring Provider Internal Medicine Nephrology; Visit Provider Internal Medicine Nephrology
DX: D50.9 Iron deficiency anemia, unspecified (principal); N18.4 Chronic kidney disease, stage 4 (severe); N25.81 Secondary hyperparathyroidism of renal origin
CPT/HCPCS: 36415; 80069; 83970; 85027

== ENCOUNTER → 2019-10-26 11:45 | Outpatient (CLI) | payer MEDICARE, SELFPAY ==
[2019-10-26 12:43] LABS: Hematocrit 29.3 % (37-47); Hemoglobin 8.9 g/dL (12.0-15.0); Mean Corp Hgb Conc 30.4 g/dL (32-36); Mean Corpuscular Hgb 30.7 pg (27.0-32.0); Mean Platelet Vol. 9.2 fl (6.2-12.0); Platelet Count 245 K/mm3 (150-450); RBC Distribution Width CV 15.4 % (11.6-14.6); RBC Distribution Width SD 56.3 fl (35.1-43.9); White Blood Count 6.9 K/mm3 (4.4-11.0)
[2019-10-26 13:06] LABS: PTHIN 188.1 pg/mL (18.4-80.1)
[2019-10-26 13:09] LABS: Albumin, Serum 2.7 g/dL (3.2-5.0); BUN 45 mg/dL (7-18); BUN/Creat Ratio 14.1 RATIO (10-20); Calcium,Total 9.9 mg/dL (8.5-10.1); Chloride 112 mmol/L (98-107); Creatinine, Serum 3.19 mg/dL (0.55-1.02); EST Glomerular Filtration Rate 15 mL/min (>60); Est Glom Filt Rate - Afr Amer 18 mL/min (>60); Ferritin 170 ng/mL (8-252); Glucose 97 mg/dL (74-106); Iron 35 ug/dL (50-170); Iron Binding Capacity,Total 313 ug/dL (250-450); Phosphorus 2.7 mg/dL (2.5-4.9); Potassium 3.9 mmol/L (3.5-5.1); Sodium Level 138 mmol/L (136-145)
== END ==
PROVIDERS: PCP Family Medicine; Visit Provider Internal Medicine Nephrology
DX: D50.9 Iron deficiency anemia, unspecified (principal); N25.81 Secondary hyperparathyroidism of renal origin
CPT/HCPCS: 36415; 80069; 82728; 83540; 83550; 83970; 85027

== ENCOUNTER → 2019-11-16 13:32 | Outpatient (CLI) | payer MEDICARE, SELFPAY ==
[2019-11-14 14:28] VITALS: BMI 22.4
[2019-11-16 16:17] LABS: Hematocrit 29.3 % (37-47); Hemoglobin 9.2 g/dL (12.0-15.0); Mean Corp Hgb Conc 31.4 g/dL (32-36); Mean Corpuscular Hgb 31.1 pg (27.0-32.0); Mean Platelet Vol. 9.4 fl (6.2-12.0); Platelet Count 374 K/mm3 (150-450); RBC Distribution Width CV 15.6 % (11.6-14.6); RBC Distribution Width SD 56.1 fl (35.1-43.9); Red Blood Count 2.96 M/mm3 (4.2-5.4); White Blood Count 9.1 K/mm3 (4.4-11.0)
[2019-11-16 16:41] LABS: Albumin, Serum 2.6 g/dL (3.2-5.0); BUN 57 mg/dL (7-18); BUN/Creat Ratio 13.4 RATIO (10-20); Calcium,Total 9.4 mg/dL (8.5-10.1); Chloride 110 mmol/L (98-107); Creatinine, Serum 4.26 mg/dL (0.55-1.02); EST Glomerular Filtration Rate 11 mL/min (>60); Est Glom Filt Rate - Afr Amer 13 mL/min (>60); Glucose 88 mg/dL (74-106); Phosphorus 5.9 mg/dL (2.5-4.9); Potassium 3.6 mmol/L (3.5-5.1); Sodium Level 136 mmol/L (136-145)
[2019-11-17 09:09] LABS: PTHIN 431.8 pg/mL (18.4-80.1)
== END ==
PROVIDERS: PCP Family Medicine; Visit Provider Internal Medicine Nephrology
DX: N18.4 Chronic kidney disease, stage 4 (severe) (principal); D63.1 Anemia in chronic kidney disease; D50.9 Iron deficiency anemia, unspecified; I95.9 Hypotension, unspecified
CPT/HCPCS: 36415; 80069; 83970; 85027; 96365; J1756; J7050; A4216

== ENCOUNTER → 2019-12-06 | Outpatient (CLI) | payer MEDICARE, SELFPAY ==
[2019-11-18 13:21] VITALS: BMI 24.4
[2019-12-06 12:10] LABS: Hematocrit 29.4 % (37-47); Hemoglobin 8.9 g/dL (12.0-15.0); Mean Corp Hgb Conc 30.3 g/dL (32-36); Mean Corpuscular Hgb 32.1 pg (27.0-32.0); Mean Corpuscular Volume 106.1 fL (81-99); Mean Platelet Vol. 9.4 fl (6.2-12.0); POSITIVE MORPHOLOGY YES; Platelet Count 202 K/mm3 (150-450); RBC Distribution Width CV 18.4 % (11.6-14.6); RBC Distribution Width SD 71.8 fl (35.1-43.9); Red Blood Count 2.77 M/mm3 (4.2-5.4); White Blood Count 8.1 K/mm3 (4.4-11.0)
[2019-12-06 12:12] LABS: Scan Indicated on CBC? Y/N YES- FLAGS NOTED
[2019-12-06 12:42] LABS: Albumin, Serum 3.3 g/dL (3.2-5.0); BUN 44 mg/dL (7-18); BUN/Creat Ratio 12.3 RATIO (10-20); Calcium,Total 9.6 mg/dL (8.5-10.1); Chloride 112 mmol/L (98-107); Creatinine, Serum 3.58 mg/dL (0.55-1.02); EST Glomerular Filtration Rate 13 mL/min (>60); Est Glom Filt Rate - Afr Amer 16 mL/min (>60); Glucose 74 mg/dL (74-106); Phosphorus 3.4 mg/dL (2.5-4.9); Potassium 4.5 mmol/L (3.5-5.1); Sodium Level 142 mmol/L (136-145)
[2019-12-06 13:11] LABS: 24 Hour Urine Protein 980.4 mg/24HR (<150 MG/24HR); 24HR. UA Prot. Total Volume 1900 mL; Creat.Clear Total Volume 1900 mL; Creatinine Clearance 13 ml/min (100-200); Creatinine Serum Creat 3.6 mg/dL (0.6-1.0); Creatinine Urine 35.3 mg/dL (NO RANGE EST.); EST Glomerular Filtration Rate 13 mL/min (>60); Est Glom Filt Rate - Afr Amer 16 mL/min (>60); Urine Protein (24 Hour) 51.6 mg/dL (<11.9)
== END | disposition home or self-care (01) ==
LOC: POLAB3 10:42
PROVIDERS: PCP Family Medicine; Visit Provider Internal Medicine Nephrology
DX: N18.4 Chronic kidney disease, stage 4 (severe) (principal); D50.9 Iron deficiency anemia, unspecified; D63.1 Anemia in chronic kidney disease; N25.81 Secondary hyperparathyroidism of renal origin
CPT/HCPCS: 36415; 80069; 82575; 83970; 84156; 85027

== ENCOUNTER → 2019-12-13 | Outpatient (CLI) | payer MEDICARE, SELFPAY ==
[2019-11-18 13:21] VITALS: BMI 24.4
== END | disposition home or self-care (01) ==
LOC: LABSPEC 11:32
PROVIDERS: PCP Family Medicine; Referring Provider Urology; Visit Provider Urology
DX: R82.998 Other abnormal findings in urine (principal)
CPT/HCPCS: 87086; 87088; 87186

== ENCOUNTER 2019-12-23 10:25 | Day surgery (SDC) | payer MEDICARE, SELFPAY ==
[2019-11-18 13:21] VITALS: BMI 24.4
[2019-12-23 10:43] VITALS: BP 179/65; PULSE 68; RESP 16; TEMP 36; O2SAT 100; BMI 22.1
--- NOTE | 2019-12-23 10:44 | HP.PCM_ITS ---
History of Present Illness Date of Admission: 12/23/19 Chief Complaint: Chronic renal sufficiency chronic bilateral hydronephrosis recurrent UTIs The patient is a 79 year old female with a history of chronic obstruction of both the kidneys she has chronic stents on both sides and also recurrent urinary tract infections had a recent E. coli infection working to treat this after her stent change today. She has chronic renal insufficiency she understands is possible she may have to go on dialysis sometime but for now can continue with stent changes to keep her kidneys working as best as possible. 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) N13.2 Atherosclerosis of coronary artery of [place] heart without angina pectoris (Chronic) I25.10 Essential (primary) hypertension (Chronic) I10 Stenosis of left carotid artery (Chronic) I65.22 HLD (hyperlipidemia) (Chronic) E78.5 Heart disease I51.9 Hyperparathyroidism due to renal insufficiency N25.81 Hypothyroidism E03.9 Iron deficiency anemia D50.9 Obstructive nephropathy N13.8 Urinary tract infection N39.0 Vitamin deficiency E56.9 Arthritis M19.90 Chronic renal disease, stage IV N18.4 Normochromic normocytic anemia D64.9 Acute pyelonephritis N10 Sepsis A41.9 Allergies lisinopril Allergy (Verified 12/23/19 10:34) Hives Sulfa (Sulfonamide Antibiotics) Allergy (Verified 12/23/19 10:34) Hives Home Medications: Ambulatory Orders Medication Instructions Recorded Aspirin [Aspirin, Baby] 81 mg PO DAILY 05/01/16 Ferrous Sulfate 325 mg PO BID 01/11/19 Acetaminophen [Tylenol Arthritis] 650 mg PO BID 04/05/19 Amiodarone HCl 100 mg PO QDAY 07/06/19 Atorvastatin Calcium 10 mg PO QHS 07/06/19 Clopidogrel Bisulfate [Clopidogrel] 75 mg PO DAILY 07/06/19 Calcitriol [Rocaltrol] 0.25 mcg PO DAILY 10/28/19 Metoprolol Tartrate [Lopressor 25 mg PO BID 12/15/19 (beta joao)] Sodium Bicarbonate 650 mg PO BID 12/15/19 Surgical History: Surgical History (Last Reviewed 11/03/19 @ 09:03 by Jana Garza) History of coronary artery stent placement (Resolved) Onset Date: 10/09/08 Z95.5 PCI-BMS-Mid LAD 10/09/2008 history Left brachial AV fistula creation Onset Date: ~04/11/19 History of left-sided carotid endarterectomy Z98.890 Left carotid stent in 2008 History of total abdominal hysterectomy and bilateral salpingo-oophorectomy Z90.710, Z90.722, Z90.August History of ureter stent Z96.0 Bilateral, stents place for b/l hydronephrosis, suspected secondary to enlarged uterus but continued issue s/p hysterectomy. Hx of cataract surgery Z98.49 Surgical History: hysterectomy, - Psychiatric History: No pertinent psych hx Smoking Status: Never smoker - *Family History Maternal Family History: Family History (Last Reviewed 11/03/19 @ 09:03 by Jana Garza) Mother CVA (cerebral vascular accident) Hypertension Alcoholism Heart disease Father Heart disease History Items: - Review of Systems Constitutional: Denies: Chills, Fever, Weight Change HEENT: Denies: Head Aches, Sinus Congestion, Sinus Drainage Cardiovascular: Denies: Chest Pain, Palpitations Respiratory: Denies: Cough, Shortness of breath at rest, Sputum production Gastrointestinal: Denies: Abdominal Pain, Nausea, Vomiting Genitourinary: Denies: Dysuria Musculoskeletal: Denies: Joint Pain, Joint Tenderness Skin: Denies: Rash, Wounds Neurological: Denies: Numbness, Tingling, Focal weakness Psychiatric: Denies: Anxiety, Depression, Homicidal Ideations, Suicidal Ideations Hematologic/ Lymphatic: Denies: Easy Bruising, Easy Bleeding VTE Information - Inpt Only VTE Present on Admission: No VTE Mechan Device Prophylaxis: SCD's - Physical Exam Vitals/I&O's: Weight: 58.967 kg Body Mass Index (BMI) 24.4 General: Alert, Oriented x3, Cooperative HEENT: Atraumatic, PERRLA, EOMI, Normocephalic Neck: Supple, No JVD, Negative Carotid Bruits Lungs: Clear to auscultation, Normal air movement Cardiovascular: Regular rate, No murmurs Abdomen: Bowel Sounds Present, Soft, Non Tender Extremities: No edema, Capillary Refill Less than 3 Seconds Skin: No rashes, No breakdown Musculoskeletal: No Tenderness to Palpation of Joints or Extremities Neurological: Cranial nerves II-XII grossly intact Psych/Mental Status: Normal Affect, Appropriate Laboratory Results 12/19/19 10:15: COVID-19 (RIAZ) Not Detected Current Medications Cefazolin Sodium 2 gm/ Sodium (Chloride) 110 mls @ 150 mls/hr IV PREOP ONE Stop: 12/23/19 12:23 Sodium Chloride () 5 - 15 ml IV UD PRN PRN Reason: SALINE FLUSH Assessment/Plan All Active Problems (Last Reviewed 11/03/19 @ 09:03 by Jana Garza) 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 (Acute) Iron refractory iron deficiency anemia (Acute) History of coronary artery stent placement (Resolved 10/09/08) Bradycardia (Resolved) Dehydration (Resolved) Hypokalemia (Resolved) UTI (urinary tract infection) (Resolved) Proceed with bilateral stent changes today.
--- NOTE | 2019-12-23 10:46 | DCINST_ITS ---
Discharge Diet: Light diet - advance as tolerated Discharge Activity: Return to Normal Activity Suture Line Care: Avoid Pulling/Pushing, Avoid Pinching/Bending Allergies/Adverse Reactions: Allergies lisinopril Allergy (Verified 12/23/19 10:34) Hives Sulfa (Sulfonamide Antibiotics) Allergy (Verified 12/23/19 10:34) Hives Medications to take at Discharge Aspirin [Aspirin, Baby] 81 mg PO DAILY 05/01/16 Ferrous Sulfate 325 mg PO BID 01/11/19 Acetaminophen [Tylenol Arthritis] 650 mg PO BID 04/05/19 Amiodarone HCl 100 mg PO QDAY 07/06/19 Atorvastatin Calcium 10 mg PO QHS 07/06/19 Clopidogrel Bisulfate [Clopidogrel] 75 mg PO DAILY 07/06/19 Calcitriol [Rocaltrol] 0.25 mcg PO DAILY 10/28/19 Metoprolol Tartrate [Lopressor (beta joao)] 25 mg PO BID 12/15/19 Sodium Bicarbonate 650 mg PO BID 12/15/19 Ciprofloxacin [Cipro] 250 mg PO BID #10 tab 12/23/19 Primary Care Physician: Brett Flores DO [Primary Care Provider] - Test Results: Test results from this visit will be discussed in further detail at your follow- up appointment, if applicable. Please Follow Up With: Simone Garcia MD When: in 2 weeks, please call to make an appointment.
[2019-12-23] MEDS: Lactated Ringers 1,000 ML 100 ML IV (10:52)
[2019-12-23] MEDS: Cefazolin 2 GM in 0.9% Normal Saline 100 ML IV (11:16)
[2019-12-23] MEDS: Lubricating Jelly 60 GM Tube 30 GM TOPICAL (11:24)
--- NOTE | 2019-12-23 11:39 | PCM.OPRPT ---
Report of Operation Date of Procedure: 12/23/19 Pre-Operative Diagnosis: Chronic renal insufficiency chronic bilateral stents from chronic bilateral obstruction etiology unclear Post-Operative Diagnosis: Same and also recurrent UTIs Surgery/Procedure Performed:: Cystoscopy, right retrograde pyelogram right stent change, interpretation fluoroscopic images, left retrograde pyelogram left stent change Description of Surgical Findings:: 79-year-old female who was taken back to the operating room to smooth induction of general anesthesia she was placed in dorsolithotomy position. The urethra vaginal area prepped and draped in usual sterile fashion when the bladder with a 21 Persian rigid cystourethroscope grabbed the existing stent from the left side pulled out the meatus put a wire up to the stent was not able to get the wire up inside went back in the bladder identified the left ureteral orifice cannulated with a Glidewire and a Pollack catheter performed a retrograde pyelogram, and then put a wire up into the kidney there is still had hydronephrosis in the left side and over the wire place a stent 6 x 26 cm stent. I then went to the right side grabbed existing stent pulled out the meatus pulled all the way out went back into the bladder and cannulated the right ureteral orifice with a Glidewire and a Pollack catheter advanced a wire all the way up to the kidney performed a retrograde pyelogram could see more hydronephrosis on the right side and then put a wire up on the right side over the wire place a new stent a 6 Persian by 26 cm stent once both stents were in place retrograde pyelogram was performed bladder was drained patient acetic was versed to go home with some Cipro for 5 days and we can see her in a few weeks for checkup. Type of Anesthesia:: Local MAC Drains: bilateral stents - Admit VTE Documentation VTE Present on Admission: No VTE Mechan Device Prophylaxis: SCD's
[2019-12-23 11:48] VITALS: BP 137/61; BP 179/65; PULSE 61; RESP 16; TEMP 36.1; O2SAT 98
[2019-12-23 11:51] VITALS: BP 139/61; BP 179/65; PULSE 60; RESP 16; O2SAT 97
[2019-12-23 11:56] VITALS: BP 155/56; BP 179/65; PULSE 59; RESP 16; O2SAT 97
[2019-12-23 12:01] VITALS: BP 155/63; BP 157/61; BP 179/65; PULSE 58; PULSE 60; RESP 16; TEMP 36.1; O2SAT 99
[2019-12-23 12:32] VITALS: BP 166/55; BP 179/65; PULSE 61; RESP 16; TEMP 36.1; O2SAT 95
== END 2019-12-23 12:44 | disposition home or self-care (01) ==
LOC: SDC 10:28 → AC 10:29
PROVIDERS: Anesthesiology; PCP Family Medicine; Referring Provider Urology; Visit Provider Urology
PROC: (CPT 52005; principal; 2019-12-23 11:40)
DX: N13.1 Hydronephrosis with ureteral stricture, not elsewhere classified (principal); I12.9 Hypertensive chronic kidney disease with stage 1 through stage 4 chronic kidney disease, or unspecified chronic kidney disease; N18.4 Chronic kidney disease, stage 4 (severe); D50.9 Iron deficiency anemia, unspecified; D63.1 Anemia in chronic kidney disease; I48.0 Paroxysmal atrial fibrillation; I25.10 Atherosclerotic heart disease of native coronary artery without angina pectoris; E78.5 Hyperlipidemia, unspecified; Z11.59 Encounter for screening for other viral diseases; Z87.440 Personal history of urinary (tract) infections; Z79.82 Long term (current) use of aspirin; Z79.899 Other long term (current) drug therapy
CPT/HCPCS: 52005; 52332; 76000; 87635; G2023; J7120; C1769; C2617; J2405; U0003

== ENCOUNTER → 2020-01-05 | Outpatient (CLI) | payer MEDICARE, SELFPAY ==
[2020-01-05 08:52] VITALS: BMI 22.1
[2020-01-05 13:02] LABS: Albumin, Serum 3.5 g/dL (3.2-5.0); BUN 38 mg/dL (7-18); BUN/Creat Ratio 11.9 RATIO (10-20); Calcium,Total 10.2 mg/dL (8.5-10.1); Chloride 110 mmol/L (98-107); Creatinine, Serum 3.18 mg/dL (0.55-1.02); EST Glomerular Filtration Rate 15 mL/min (>60); Est Glom Filt Rate - Afr Amer 18 mL/min (>60); Ferritin 502 ng/mL (8-252); Glucose 78 mg/dL (74-106); Iron 82 ug/dL (50-170); Iron Binding Capacity,Total 287 ug/dL (250-450); PERCENT IRON SATURATION 28.6 % (15.0-55.0); Phosphorus 3.8 mg/dL (2.5-4.9); Potassium 4.1 mmol/L (3.5-5.1); Sodium Level 138 mmol/L (136-145)
[2020-01-05 13:12] LABS: PTHIN 141.7 pg/mL (18.4-80.1)
== END | disposition home or self-care (01) ==
LOC: POLAB3 10:09
PROVIDERS: PCP Family Medicine; Visit Provider Internal Medicine Nephrology
DX: N18.4 Chronic kidney disease, stage 4 (severe) (principal); D50.9 Iron deficiency anemia, unspecified; N25.81 Secondary hyperparathyroidism of renal origin
CPT/HCPCS: 36415; 80069; 82728; 83540; 83550; 83970

== ENCOUNTER → 2020-02-06 | Outpatient (CLI) | payer MEDICARE, SELFPAY ==
[2020-01-05 08:52] VITALS: BMI 22.1
== END | disposition home or self-care (01) ==
PROVIDERS: PCP Family Medicine; Referring Provider Urology; Visit Provider Urology
DX: N39.0 Urinary tract infection, site not specified (principal)
CPT/HCPCS: 87077; 87086; 87088; 87186

== ENCOUNTER → 2020-02-17 | Outpatient (CLI) | payer MEDICARE, SELFPAY ==
[2020-01-05 08:52] VITALS: BMI 22.1
[2020-02-17 12:51] LABS: Hematocrit 35.9 % (37-47); Hemoglobin 11.5 g/dL (12.0-15.0); Mean Corpuscular Hgb 33.8 pg (27.0-32.0); Mean Corpuscular Volume 105.6 fL (81-99); Platelet Count 222 K/mm3 (150-450); RBC Distribution Width CV 13.2 % (11.6-14.6); RBC Distribution Width SD 50.8 fl (35.1-43.9); White Blood Count 7.2 K/mm3 (4.4-11.0)
[2020-02-17 13:05] LABS: Albumin, Serum 3.7 g/dL (3.2-5.0); BUN 53 mg/dL (7-18); BUN/Creat Ratio 16.4 RATIO (10-20); Calcium,Total 10.2 mg/dL (8.5-10.1); Chloride 110 mmol/L (98-107); Creatinine, Serum 3.24 mg/dL (0.55-1.02); EST Glomerular Filtration Rate 15 mL/min (>60); Est Glom Filt Rate - Afr Amer 18 mL/min (>60); Glucose 81 mg/dL (74-106); Phosphorus 3.6 mg/dL (2.5-4.9); Potassium 4.3 mmol/L (3.5-5.1); Sodium Level 142 mmol/L (136-145)
[2020-02-17 13:09] LABS: PTHIN 159.7 pg/mL (18.4-80.1)
== END | disposition home or self-care (01) ==
LOC: LAB 11:39
PROVIDERS: PCP Family Medicine; Referring Provider Internal Medicine Nephrology; Visit Provider Internal Medicine Nephrology
DX: N18.5 Chronic kidney disease, stage 5 (principal); N25.81 Secondary hyperparathyroidism of renal origin; D50.9 Iron deficiency anemia, unspecified; D63.1 Anemia in chronic kidney disease
CPT/HCPCS: 36415; 80069; 83970; 85027

== ENCOUNTER → 2020-04-18 11:06 | Outpatient (CLI) | payer MEDICARE, SELFPAY ==
[2020-02-17 13:27] VITALS: BMI 22.1
[2020-04-18 12:05] LABS: Hematocrit 32.6 % (37-47); Hemoglobin 10.2 g/dL (12.0-15.0); Mean Corp Hgb Conc 31.3 g/dL (32-36); Mean Corpuscular Hgb 33.1 pg (27.0-32.0); Mean Corpuscular Volume 105.8 fL (81-99); Mean Platelet Vol. 8.9 fl (6.2-12.0); Platelet Count 257 K/mm3 (150-450); RBC Distribution Width CV 13.7 % (11.6-14.6); RBC Distribution Width SD 53.8 fl (35.1-43.9); Red Blood Count 3.08 M/mm3 (4.2-5.4); White Blood Count 10.3 K/mm3 (4.4-11.0)
[2020-04-18 12:40] LABS: PTHIN 153.3 pg/mL (18.4-80.1)
[2020-04-18 12:43] LABS: Albumin, Serum 3.2 g/dL (3.2-5.0); BUN 47 mg/dL (7-18); Calcium,Total 10.1 mg/dL (8.5-10.1); Chloride 114 mmol/L (98-107); Creatinine, Serum 3.61 mg/dL (0.55-1.02); EST Glomerular Filtration Rate 13 mL/min (>60); Est Glom Filt Rate - Afr Amer 16 mL/min (>60); Ferritin 445 ng/mL (8-252); Glucose 94 mg/dL (74-106); Iron 62 ug/dL (50-170); Iron Binding Capacity,Total 228 ug/dL (250-450); Phosphorus 2.7 mg/dL (2.5-4.9); Sodium Level 142 mmol/L (136-145)
== END ==
PROVIDERS: PCP Family Medicine; Referring Provider Internal Medicine Nephrology; Visit Provider Internal Medicine Nephrology
DX: N18.5 Chronic kidney disease, stage 5 (principal); N25.81 Secondary hyperparathyroidism of renal origin; D50.9 Iron deficiency anemia, unspecified; N39.0 Urinary tract infection, site not specified; D63.1 Anemia in chronic kidney disease
CPT/HCPCS: 36415; 80069; 82728; 83540; 83550; 83970; 85027; 87086; 87088

== ENCOUNTER → 2020-06-06 10:17 | Outpatient (CLI) | payer MEDICARE, SELFPAY ==
[2020-02-17 13:27] VITALS: BMI 22.1
[2020-06-06 11:00] LABS: Hematocrit 33.8 % (37-47); Hemoglobin 10.7 g/dL (12.0-15.0); Mean Corp Hgb Conc 31.7 g/dL (32-36); Mean Corpuscular Hgb 34.9 pg (27.0-32.0); Mean Corpuscular Volume 110.1 fL (81-99); Mean Platelet Vol. 8.7 fl (6.2-12.0); Platelet Count 225 K/mm3 (150-450); RBC Distribution Width CV 14.3 % (11.6-14.6); RBC Distribution Width SD 56.1 fl (35.1-43.9); Red Blood Count 3.07 M/mm3 (4.2-5.4); White Blood Count 7.7 K/mm3 (4.4-11.0)
[2020-06-06 11:03] LABS: PTHIN 217.7 pg/mL (18.4-80.1)
[2020-06-06 11:09] LABS: Albumin, Serum 3.3 g/dL (3.2-5.0); BUN 57 mg/dL (7-18); BUN/Creat Ratio 15.5 RATIO (10-20); Calcium,Total 9.9 mg/dL (8.5-10.1); Chloride 117 mmol/L (98-107); Creatinine, Serum 3.68 mg/dL (0.55-1.02); EST Glomerular Filtration Rate 13 mL/min (>60); Est Glom Filt Rate - Afr Amer 15 mL/min (>60); Ferritin 342 ng/mL (8-252); Glucose 108 mg/dL (74-106); Iron 75 ug/dL (50-170); Iron Binding Capacity,Total 250 ug/dL (250-450); Phosphorus 2.9 mg/dL (2.5-4.9); Potassium 4.4 mmol/L (3.5-5.1); Sodium Level 143 mmol/L (136-145)
== END ==
PROVIDERS: PCP Family Medicine; Referring Provider Internal Medicine Nephrology; Visit Provider Internal Medicine Nephrology
DX: N18.5 Chronic kidney disease, stage 5 (principal); N25.81 Secondary hyperparathyroidism of renal origin; D50.9 Iron deficiency anemia, unspecified
CPT/HCPCS: 36415; 80069; 82728; 83540; 83550; 83970; 85027

== ENCOUNTER → 2020-06-12 | Outpatient (CLI) | payer MEDICARE, SELFPAY | END | disposition home or self-care (01) | PROVIDERS: PCP Family Medicine; Referring Provider Urology; Visit Provider Urology | DX: N39.0 Urinary tract infection, site not specified (principal) | CPT/HCPCS: 87086; 87088; 87186 ==

== ENCOUNTER 2020-07-04 08:54 | Day surgery (SDC) | payer MEDICARE, SELFPAY ==
[2020-02-17 13:27] VITALS: BMI 22.1
[2020-07-04 09:18] VITALS: BP 158/50; PULSE 61; RESP 16; TEMP 36.3; O2SAT 100; BMI 23.8
[2020-07-04] MEDS: 0.9% Normal Saline 1,000 ML 100 ML IV (09:42)
--- NOTE | 2020-07-04 10:04 | HP.PCM_ITS ---
Problem List (1) Hydronephrosis due to obstruction of ureter Status: Chronic History of Present Illness Date of Admission: 07/04/20 Chief Complaint: Bilateral hydronephrosis obstruction The patient is a 79 year old female with history of chronic obstruction of both kidneys managed with stents today renal proceed with stent change. She has poor renal function and is almost on dialysis. 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) N13.2 Atherosclerosis of coronary artery of [place] heart without angina pectoris (Chronic) I25.10 Essential (primary) hypertension (Chronic) I10 Stenosis of left carotid artery (Chronic) I65.22 HLD (hyperlipidemia) (Chronic) E78.5 Heart disease I51.9 Hyperparathyroidism due to renal insufficiency N25.81 Hypothyroidism E03.9 Iron deficiency anemia D50.9 Obstructive nephropathy N13.8 Urinary tract infection N39.0 Vitamin deficiency E56.9 Arthritis M19.90 Chronic renal disease, stage IV N18.4 Normochromic normocytic anemia D64.9 Acute pyelonephritis N10 Sepsis A41.9 Allergies lisinopril Allergy (Verified 07/04/20 09:15) Hives Sulfa (Sulfonamide Antibiotics) Allergy (Verified 07/04/20 09:15) Hives Home Medications: Ambulatory Orders Medication Instructions Recorded Aspirin [Aspirin, Baby] 81 mg PO DAILY 05/01/16 Ferrous Sulfate 325 mg PO BID 01/11/19 Acetaminophen [Tylenol Arthritis] 650 mg PO BID 04/05/19 Calcitriol [Rocaltrol] 0.25 mcg PO DAILY 10/28/19 Sodium Bicarbonate 650 mg PO DAILY 12/15/19 metoprolol tartrate 25 mg tablet 25 mg PO BID #180 tab 03/09/20 clopidogrel 75 mg tablet 75 mg PO DAILY #90 tab 03/29/20 Ciprofloxacin [Cipro] 250 mg PO BID #10 tab 07/04/20 Surgical History: Surgical History (Last Reviewed 01/05/20 @ 09:07 by Michelle Dillon) History of coronary artery stent placement (Resolved) Onset Date: 10/09/08 Z95.5 PCI-BMS-Mid LAD 10/09/2008 history Left brachial AV fistula creation Onset Date: ~04/11/19 History of left-sided carotid endarterectomy Z98.890 Left carotid stent in 2008 History of total abdominal hysterectomy and bilateral salpingo-oophorectomy Z90.710, Z90.722, Z90.August History of ureter stent Z96.0 Bilateral, stents place for b/l hydronephrosis, suspected secondary to enlarged uterus but continued issue s/p hysterectomy. Hx of cataract surgery Z98.49 Surgical History: hysterectomy, - Psychiatric History: No pertinent psych hx Smoking Status: Never smoker Tobacco Use: Non-smoker - *Family History Maternal Family History: Family History (Last Reviewed 01/05/20 @ 09:07 by Michelle Dillon) Mother CVA (cerebral vascular accident) Hypertension Alcoholism Heart disease Father Heart disease History Items: - Review of Systems Constitutional: Denies: Chills, Fever, Weight Change HEENT: Denies: Head Aches, Sinus Congestion, Sinus Drainage Cardiovascular: Denies: Chest Pain, Palpitations Respiratory: Denies: Cough, Shortness of breath at rest, Sputum production Gastrointestinal: Denies: Abdominal Pain, Nausea, Vomiting Genitourinary: Denies: Dysuria Musculoskeletal: Denies: Joint Pain, Joint Tenderness Skin: Denies: Rash, Wounds Neurological: Denies: Numbness, Tingling, Focal weakness Psychiatric: Denies: Anxiety, Depression, Homicidal Ideations, Suicidal Ideations Hematologic/ Lymphatic: Denies: Easy Bruising, Easy Bleeding VTE Information - Inpt Only VTE Present on Admission: No VTE Mechan Device Prophylaxis: SCD's - Physical Exam Vitals/I&O's: Vital Signs Temp Pulse Resp BP Pulse Ox 97.4 F L 61 16 158/50 H 100 07/04/20 09:18 07/04/20 09:18 07/04/20 09:18 07/04/20 09:18 07/04/20 09:18 Oxygen Delivery Method Room Air Weight: 61.2 kg Body Mass Index (BMI) 23.8 General: Alert, Oriented x3, Cooperative HEENT: Atraumatic, PERRLA, EOMI, Normocephalic Neck: Supple, No JVD, Negative Carotid Bruits Lungs: Clear to auscultation, Normal air movement Cardiovascular: Regular rate, No murmurs Abdomen: Bowel Sounds Present, Soft, Non Tender Extremities: No edema, Capillary Refill Less than 3 Seconds Skin: No rashes, No breakdown Musculoskeletal: No Tenderness to Palpation of Joints or Extremities Neurological: Cranial nerves II-XII grossly intact Psych/Mental Status: Normal Affect, Appropriate Microbiology Past 72 Hours 07/03/20 09:58 Interface Orders SARS-CoV-2 Antigen (Rapid) - Final Current Medications Cefazolin Sodium 2 gm/ Sodium (Chloride) 110 mls @ 150 mls/hr IV PREOP ONE Stop: 07/04/20 11:48 Sodium Chloride () 1,000 mls @ 100 mls/hr IV .Q10H SRIRAM Last Admin: 07/04/20 09:42 Dose: 100 mls/hr Documented by: Assessment/Plan All Active Problems (Last Reviewed 01/05/20 @ 09:07 by Michelle Dillon) 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 (Acute) Iron refractory iron deficiency anemia (Acute) History of coronary artery stent placement (Resolved 10/09/08) Bradycardia (Resolved) Dehydration (Resolved) Hypokalemia (Resolved) UTI (urinary tract infection) (Resolved) Plan to proceed with cystoscopy bilateral stent change should be given antibiotics after the procedure as well regarding his infection
--- NOTE | 2020-07-04 10:06 | PCM.DC.URO ---
Discharge Diet: Light diet - advance as tolerated Discharge Activity: Return to Normal Activity Call your doctor if your incision/area has: Continuous Slow Oozing, Sudden Increased Bleeding, Increased Pain/ Swelling, Increased Redness Call your doctor if you observe: Fever of 101 or Higher Allergies/Adverse Reactions: Allergies lisinopril Allergy (Verified 07/04/20 09:15) Hives Sulfa (Sulfonamide Antibiotics) Allergy (Verified 07/04/20 09:15) Hives Medications to take at Discharge Aspirin [Aspirin, Baby] 81 mg PO DAILY 05/01/16 Ferrous Sulfate 325 mg PO BID 01/11/19 Acetaminophen [Tylenol Arthritis] 650 mg PO BID 04/05/19 Calcitriol [Rocaltrol] 0.25 mcg PO DAILY 10/28/19 Sodium Bicarbonate 650 mg PO DAILY 12/15/19 metoprolol tartrate 25 mg tablet 25 mg PO BID #180 tab 03/09/20 clopidogrel 75 mg tablet 75 mg PO DAILY #90 tab 03/29/20 Ciprofloxacin [Cipro] 250 mg PO BID #10 tab 07/04/20 The following prescriptions were given: Ciprofloxacin [Cipro] 250 mg PO BID #10 tab Transmission Status: Pending to [facility] Primary Care Physician: Brett Flores DO [Primary Care Provider] - Test Results: Test results from this visit will be discussed in further detail at your follow-up appointment, if applicable. Please Follow Up With: Simone Garcia MD When: in 3 months, please call to make an appointment.
[2020-07-04] MEDS: Cefazolin 2 GM in 0.9% Normal Saline 100 ML IV (10:20)
--- NOTE | 2020-07-04 11:14 | OP.PCM_ITS ---
Problem List (1) Hydronephrosis due to obstruction of ureter Status: Chronic Report of Operation Date of Procedure: 07/04/20 Pre-Operative Diagnosis: Bilateral chronic stents Post-Operative Diagnosis: Same Surgery/Procedure Performed:: Cystoscopy and left stent change left retrograde pyelogram interpretation fluoroscopic images. Cystoscopy right stent change, right ureteroscopy and extraction of migrated stent. Description of Surgical Findings:: Patient was taken back to the operating room after induction of general anesthesia, the patient was placed in dorsolithotomy position. The urethra and genitals were prepped and draped in usual sterile fashion. Using a 21 [place] rigid cystourethroscope the entire length of the urethra was normal then went into the bladder. Identified the trigone the left and right ureteral orifice. I removed the left stent I then cannulated the left orifice and advanced a wire up into the kidney. I then backloaded a 5 [place] open ended catheter over the wire and injected contrast to delineate the anatomy. After the retrograde was performed I then used fluoroscopic images and guidance to advanced a wire up into the kidney and over the 0.038 glidewire I advanced a 6 [place] by 26 cm double pigtail stent. I then pulled the 0.038 Glidewire off and the stent coiled in the kidney bladder good position. The bladder was then drained. We confirmed the position of the stent by fluoroscopy. I then went to the right side and the right stent had been pulled up into the ureter, I then cannulated the right ureteral orifice and advanced a 0.038 Glidewire up into the kidney. It was very difficult to find the right ureteral orifice but after extensive cystoscopy was able to find the orifice. Then over the Glidewire I advanced a 5 Fr Ureteral catheter and performed a retrograde pyelogram with about 10cc of contrast, to delineate the anatomy and then after this I loaded a 0.038 glidewire then the safety wire was left in place,. I then placed a second 0.038 Guidewire as a working wire and over the working 0.038 guidewire I went in with the reg rigide 7.5fr ureteroscope. I was able to go inside with the 7.5Fr reg rigid utereroscope and I pulled out the working guidewire and then through the 7.5 fr simirigid ureteroscope I engage the retained stent and used a basket to extract it. A retrograde pyelogram was performed with 10cc of contrast and no extravasation of contrast or perforation was identified in the ureter there was some mild irritation of the ureter. I then backed out of the ureter left the wire in place and then over the 0.[address] I then backloaded a 5 [place] open ended catheter over the wire and injected contrast to delineate the anatomy. After the retrograde was performed I then used fluoroscopic images and guidance to advanced a wire up into the kidney and over the 0.038 glidewire I advanced a 6 [place] by 26 cm double pigtail stent. I then pulled the 0.038 Glidewire off and the stent co iled in the kidney bladder good position. The bladder was then drained. We confirmed the position of the stent by fluoroscopy. At the end of the case both the left and right stent were in good position. The patient anesthetic was reversed and was taken back to the PACU in good condition. Type of Anesthesia:: General Drains: stent bilateral - Admit VTE Documentation VTE Present on Admission: No VTE Mechan Device Prophylaxis: SCD's
[2020-07-04 11:22] VITALS: BP 126/60; BP 158/80; PULSE 67; RESP 16; TEMP 36.1; O2SAT 96
[2020-07-04 11:33] VITALS: BP 145/62; BP 158/80; PULSE 63; RESP 16; O2SAT 96
[2020-07-04 11:44] VITALS: BP 140/61; BP 158/80; PULSE 63; RESP 18; O2SAT 97
[2020-07-04 11:55] VITALS: BP 155/58; BP 158/80; PULSE 63; RESP 16; TEMP 35.9; O2SAT 98
[2020-07-04 12:40] VITALS: BP 136/65; BP 158/80; PULSE 57; RESP 16; TEMP 35.8; O2SAT 98
== END 2020-07-04 12:52 | disposition home or self-care (01) ==
LOC: SDC 08:55 → AC 08:55
PROVIDERS: PCP Family Medicine; Referring Provider Urology; Visit Provider Urology
PROC: (CPT 52332; principal; 2020-07-04 10:50)
DX: N13.2 Hydronephrosis with renal and ureteral calculous obstruction (principal); I12.9 Hypertensive chronic kidney disease with stage 1 through stage 4 chronic kidney disease, or unspecified chronic kidney disease; N18.4 Chronic kidney disease, stage 4 (severe); I25.10 Atherosclerotic heart disease of native coronary artery without angina pectoris; E78.5 Hyperlipidemia, unspecified; D50.9 Iron deficiency anemia, unspecified; Z79.899 Other long term (current) drug therapy; Z20.822 Contact with and (suspected) exposure to COVID-19
CPT/HCPCS: 52005; 52332; 76000; 87426; C9803; J7030; J7120; C1758; C1769; C2617; J2405

== ENCOUNTER 2020-07-06 10:37 | Inpatient (IN) | payer MEDICARE, SELFPAY ==
[2020-07-06] VITALS (10 sets, daily range): BP systolic 134–183; BP diastolic 58–76; PULSE 85–111; RESP 16–27; TEMP 35.8–37.2; O2SAT 95–98; BMI 23.7; BMI 24.4
--- NOTE | 2020-07-06 11:16 | CT_ITS ---
STUDY: CT ABDOMEN AND PELVIS WITHOUT CONTRAST REASON FOR EXAM: Female, 79 years old. DECREASED URINATION, BLOOD CLOTS, VOMIT TING RADIATION DOSAGE (If Supplied By Facility): CTDIvol = ( 6.10 ) mGy, DLP = ( 307.68 ) mGycm TECHNIQUE: Transaxial images were obtained from the dome of the diaphragm to the symphysis pubis without oral contrast, and without intravenous contrast. Sagittal and coronal images were reconstructed. Individualized dose optimization techniques were used for this CT. COMPARISON: Comparison is made with prior examination dated 02/05/2019. FINDINGS: Focal infiltrate in the right lower lobe. Mild increased markings at the left lung base. Coronary artery calcification. Small amount of perihepatic fluid. Mildly distended gallbladder containing multiple small gallstones or sludge. Normal spleen. Normal pancreas. Normal bilateral adrenal glands. Moderate degree of right hydronephrosis and right hydroureter. A right-sided double-J stent catheter is seen. Atrophy of the left kidney. A left-sided double-J stent catheter is seen. The distal tips are seen within the bladder. Normal visualized stomach. Normal small intestine. There are multiple colonic diverticula consistent with diverticulosis. The appendix is visualized and appears normal. There is diffuse atherosclerotic calcification of the abdominal aorta, without a demonstrated aneurysm. Normal inferior vena cava. Normal retroperitoneum. A CASAREZ catheter is seen within the urinary bladder. The bladder is empty. There is diffuse thickening of the bladder wall. Ascitic fluid is seen within the pelvis. Normal abdominal wall. There are diffuse degenerative changes of the visualized lumbar spine. Loss of the normal lumbar lordosis. Dextroscoliosis. CT/Abdomen/Pelvis without Cont IMPRESSION: Bilateral double-J stent catheters. Moderate degree of right hydronephrosis and hydroureter. Mildly distended gallbladder containing gallstones or sludge. Diffuse bladder wall thickening. Ascites. Patchy infiltrate in the right lower lobe with increased markings at the left lung base. Electronically Signed: Christopher Smart MD at 14:29 EST , Service support ,
--- NOTE | 2020-07-06 11:37 | ED.VIS.GEN ---
History of Present Illness Chief Complaint: Complaint Informant: Patient Narrative: Patient is a 79-year-old female who presents to the emergency department for lower quadrant abdominal pain. She had ureteral stents replaced this previous Thursday. She states that she does get this done every 5 to 6 weeks. Apparently there have been difficulty removing the stents this time. She has been having significant pain getting worse. She has been taking Tylenol for this which has not been giving her relief. Any coughing or movements aggravates her symptoms. She has had decreased urinary output has been having hematuria since the procedure. She denies any fevers but has had chills. She has been getting nauseous and vomiting today. She has been constipated as well. She is getting prepared to start dialysis and does have a fistula of the left upper extremity. She denies any chest pain or shortness of breath. She has had mild low back pain. Past Medical History - Allergies and Home Meds Allergies/Adverse Reactions: Allergies lisinopril Allergy (Verified 07/06/20 10:40) Hives Sulfa (Sulfonamide Antibiotics) Allergy (Verified 07/06/20 10:40) Hives Surgical History: hysterectomy, - Smoking Status: Never smoker - Family History Maternal Family History: Family History (Last Reviewed 01/05/20 @ 09:07 by Michelle Dillon) Mother CVA (cerebral vascular accident) Hypertension Alcoholism Heart disease Father Heart disease Family History: Reports: - Review of Systems All systems negative except as indicated General: Reports: Chills. Denies: Fever, Sweats Eyes: Denies: Visual changes - bilaterally, Diplopia ENT: Denies: Rhinorrhea, Sore throat Cardiovascular: Denies: Chest pain, Palpitations Respiratory: Denies: Dyspnea, Cough, Dyspnea on exertion Gastrointestinal: Reports: Abdominal pain, Nausea, Vomiting, Constipation. Denies: Diarrhea, Melena, Hematochezia Genitourinary: Reports: Hematuria. Denies: Dysuria, Frequency Musculoskeletal: Denies: Back pain, Extremity Pain Skin: Denies: Rash, Wounds Neurological: Denies: Headache, Weakness, Numbness Physical Exam Vital Signs/Narrative: Vital Signs Temp Pulse Resp BP Pulse Ox 07/06/20 10:38 96.4 F L 88 16 183/76 H 98 Inital Vital Signs reviewed: Yes General: Well nourished, Well developed, No Acute Distress Head: Normocephalic, Atraumatic Eyes: Perrl, EOMI ENT: Moist mucous membranes, No rhinorrhea Neck: Supple, Nontender Cardiovascular: Regular rate, Regular rhythm, No murmurs Respiratory: No distress, CTA bilaterally, Chest nontender Abdomen: Soft, Nondistended, Normal bowel sounds, Tender - Lower quadrants bilaterally, Guarding. Negative for: Rebound tenderness Back: Normal Inspection, - - Mild tenderness of low back near pelvic rim. Negative for: CVA tenderness Extremities: Nontender, No edema Skin: Normal color, No rash Neurological: Alert, Oriented x3, Cranial nerves II-XII grossly intact, Normal Strength, Normal Sensation Psychological: Normal affect, Normal Mood Diagnostic/Tx/Re-eval Chest X-Ray - ED: - - Single view portable x-ray has clear lung lee bilaterally. Mild atelectasis of right lower lobe. Normal cardiac silhouette. Normal mediastinum. Agree with radiologist interpretation. - Medical Decision Making Patient presents to the emergency department for lower quadrant abdominal pain post stent replacement of her ureters bilaterally. On physical exam she does have significant tenderness of the lower quadrants as well as guarding. She has been having hematuria and decreased urinary output. She does have chronic kidney disease but will obtain CT scan abdomen/pelvis. Basic lab work being obtained. She is given treatment with morphine and Zofran. Patient's lab work shows her creatinine to be elevated and she does have a mild hyperkalemia. We will treat this with Kayexalate and medications. No EKG changes at this time. She does have significant abdominal tenderness and her urologist as well General surgery was consulted to review the imaging. This does appear to be ascites as opposed to any significant perforation. Patient is a lot more comfortable after morphine and harris catheter placement. Will bring into the hospital for further evaluation and management by urology. She is given a dose of Rocephin given her hematuria and white blood cells for prophylaxis although I do not feel this is infected as there is no bacteriuria. She otherwise has been stable throughout ED stay. Given her significant comorbidities and kidney function I did admit to hospitalist. ED Disposition - Plan for ED Patient: Disposition: Acute Care Hospital [facility] Diagnosis: Abdominal pain, Ascites, Hematuria, Hyperkalemia, Chronic kidney disease
[2020-07-06 12:35] LABS: Absolute Lymphocyte Count 0.81 X10^3/uL (0.83-4.51); Absolute Neutrophil Count 18.9 X10^3/uL (2.0-7.7); Basophil# 0.04 X10^3/uL; Basophil% 0.2 % (0-1); Eosinophil# 0.02 X10^3/uL; Eosinophils% 0.1 % (0-5); Hematocrit 33.7 % (37-47); Lymphocyte # 0.81 X10^3/ul (4.0); Mean Corp Hgb Conc 32.6 g/dL (32-36); Mean Corpuscular Hgb 34.2 pg (27.0-32.0); Mean Corpuscular Volume 104.7 fL (81-99); Mean Platelet Vol. 9.2 fl (6.2-12.0); Monocyte# 0.29 X10^3/uL; Monocyte% 1.4 % (0-10); NRBC Flagged by Analyzer 0 % (0-5); Neutrophil # 18.88 X10^3/uL (2.7-7.7); Neutrophil % 93.1 % (47-70); Platelet Count 225 K/mm3 (150-450); RBC Distribution Width CV 14.4 % (11.6-14.6); RBC Distribution Width SD 55.7 fl (35.1-43.9); Red Blood Count 3.22 M/mm3 (4.2-5.4); White Blood Count 20.3 K/mm3 (4.4-11.0)
[2020-07-06] MEDS: Morphine 4 MG/ML Syringe IV (12:42)
[2020-07-06] MEDS: 0.9% Normal Saline 1,000 ML 125 ML IV (12:42)
[2020-07-06] MEDS: Ondansetron 4 MG/2 ML Vial IV (12:42)
[2020-07-06 12:59] LABS: ALB/GLOB Ratio 0.8 RATIO (0.9-2.4); AST(SGOT) 13 U/L (15-37); Alanine Aminotransfer ALT/SGPT 12 U/L (13-56); Alkaline Phosphatase 104 U/L (45-117); Anion Gap 11 (5-15); BUN 80 mg/dL (7-18); BUN/Creat Ratio 12.5 RATIO (10-20); Calcium,Total 10.4 mg/dL (8.5-10.1); Chloride 110 mmol/L (98-107); Creatinine, Serum 6.39 mg/dL (0.55-1.02); EST Glomerular Filtration Rate 7 mL/min (>60); Est Glom Filt Rate - Afr Amer 8 mL/min (>60); Globulin 3.6 g/dL (2.2-4.2); Glucose 93 mg/dL (74-106); Potassium 5.8 mmol/L (3.5-5.1); Protein, Total 6.6 g/dL (6.4-8.2); Sodium Level 136 mmol/L (136-145)
[2020-07-06 13:34] LABS: Bacteria 0 SEEN /hpf (None Seen); Mucous, Urine 0 SEEN /hpf (<or=2+); Squamous Epithelial Cells - UA 0 SEEN /hpf (5-10)
[2020-07-06 13:46] LABS: Color, Urine Red (Yellow); Glucose, Dipstick Normal (Normal); Ketone-Dipstick Negative (Negative); Leukocyte Esterase-Dipstick 500 /ul (Negative); Nitrite-Dipstick Negative (Negative); Occult Blood-Urine 250 /ul (Negative); Protein-Dipstick 100 mg/dl (Negative); Specific Gravity, Urine 1.015 (1.002-1.030); Urine Bilirubin Dipstick Negative (Negative); Urine Clarity Turbid (Clear); Urine Urobilinogen Normal (Normal)
[2020-07-06 13:59] LABS: Red Blood Cells-Urine > 100 SEEN /hpf (0-5)
[2020-07-06 14:00] LABS: White Blood Cells >100 SEEN /hpf (0-5)
[2020-07-06] MEDS: Ceftriaxone 1 GM/50 ML BAG IV (15:10)
--- NOTE | 2020-07-06 15:50 | RAD_ITS ---
STUDY: X-RAY CHEST REASON FOR EXAM: Female, 79 years old. URINARY STENT REPLACED ON THU. STATES IS HAVING DECREASED URINATION, ALSO HAS BLOOD CLOTS PRESENT. LOWER BACK AND ABD DISCOMFORT AND VOMITED A HANDFUL OF TIMEs. TECHNIQUE: 1 view COMPARISON: Prior portable chest of 01/22/2017 FINDINGS: Negative for pneumothorax. Elevated right diaphragm with atelectatic changes at the right lung base. The left lung is expanded and clear. Negative for substantial pleural effusion. Normal size heart. Normal mediastinum and shaheed. Normal visualized pulmonary arteries. There is atherosclerotic calcification of the aortic arch with tortuosity. There are diffuse degenerative changes of the visualized thoracic spine. Normal visualized ribs, clavicles, and shoulders. Surgical miguel in the medial left upper extremity. RAD/Chest 1 View (Portable) IMPRESSION: New mild elevation of the right diaphragm and multifocal atelectasis at the right lung base. Left lung is expanded and clear. Negative for pneumothorax or substantial pleural effusion. Electronically Signed: Diane Whatley MD at 16:49 EST , Service support ,
[2020-07-06] MEDS: Insulin Lispro 5 UNIT in Syringe 0 ML 3 UNIT IV (17:20)
[2020-07-06] MEDS: Sodium Bicarbonate 8.4% 50 ML Syringe 50 MEQ IV (17:20)
[2020-07-06] MEDS: Dextrose 50%-Water 25 GM/50 ML DISP.SYRIN IV (17:20)
--- NOTE | 2020-07-06 17:31 | EKG12_ITS ---
Test Reason : Blood Pressure : / mmHG Vent. Rate : 104 BPM Atrial Rate : 104 BPM P-R Int : 186 ms QRS Dur : 084 ms QT Int : 344 ms P-R-T Axes : 057 030 041 degrees QTc Int : 452 ms Sinus tachycardia Otherwise normal ECG Confirmed by KEVYN RIZZO, SMITA ([id number]), publishing editor ABIMAEL OBRIEN ([id number]) on 07/09/2020 11:28:02 AM Referred By: Simone Garcia Confirmed By:CHRISTOPHER BAGLEY MD
[2020-07-06] MEDS: Sodium Polystyrene Sulfonate 15 GM/60 ML UDC 30 GM PO (18:13)
--- NOTE | 2020-07-06 19:21 | HP.PCM_ITS ---
History of Present Illness Date of Admission: 07/06/20 Chief Complaint: Abdominal pain The patient is a 79 year old F with a PMH as below presents with abdominal pain that started the day after having her ureteral stents replaced which were replaced on 07/04/2020. She states that she felt okay after the procedure and then that night she had 3 episodes of emesis and then this morning she woke up with severe abdominal pain across her lower abdomen. She presented to the ER with a white count of 20.3 and a creatinine of 6.39. Her baseline is around 3.5, and she has had a left brachial AV fistula placed on April 2019 for the eventuality of dialysis. She denies any significant fevers, but she has noticed hematuria, abdominal pain, and chills. Urology was consulted and stated they would see her in consult this weekend. Past Medical History Past Medical History (Chronic Problems): Chronic Problems (Last Reviewed 07/04/20 @ 10:[address] 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.81 Hypothyroidism E03.9 Iron deficiency anemia D50.9 Obstructive nephropathy N13.8 Urinary tract infection N39.0 Vitamin deficiency E56.9 Arthritis M19.90 Chronic renal disease, stage IV N18.4 Normochromic normocytic anemia D64.9 Acute pyelonephritis N10 Sepsis A41.9 Allergies lisinopril Allergy (Verified 07/06/20 10:40) Hives Sulfa (Sulfonamide Antibiotics) Allergy (Verified 07/06/20 10:40) Hives Home Medications: Ambulatory Orders Medication Instructions Recorded Aspirin [Aspirin, Baby] 81 mg PO DAILY 05/01/16 Ferrous Sulfate 325 mg PO DAILY 01/11/19 Acetaminophen [Tylenol Arthritis] 1,300 mg PO BID 04/05/19 Calcitriol [Rocaltrol] 0.25 mcg PO MOTUWETHFR 10/28/19 Sodium Bicarbonate 650 mg PO DAILY 12/15/19 metoprolol tartrate 25 mg tablet 25 mg PO BID #180 tab 03/09/20 clopidogrel 75 mg tablet 75 mg PO DAILY #90 tab 03/29/20 Ciprofloxacin [Cipro] 250 mg PO BID #10 tab 07/04/20 Amiodarone HCl [Pacerone] 100 mg PO DAILY 07/06/20 Atorvastatin Calcium 10 mg PO DAILY 07/06/20 Surgical History: Surgical History (Last Reviewed 01/05/20 @ 09:07 by Michelle Dillon) History of coronary artery stent placement (Resolved) Onset Date: 10/09/08 Z95.5 PCI-BMS-Mid LAD 10/09/2008 history Left brachial AV fistula creation Onset Date: ~04/11/19 History of left-sided carotid endarterectomy Z98.890 Left carotid stent in 2008 History of total abdominal hysterectomy and bilateral salpingo-oophorectomy Z90.710, Z90.722, Z90.August History of ureter stent Z96.0 Bilateral, stents place for b/l hydronephrosis, suspected secondary to enlarged uterus but continued issue s/p hysterectomy. Hx of cataract surgery Z98.49 Surgical History: hysterectomy, - Psychiatric History: No pertinent psych hx Smoking Status: Never smoker Alcohol: None Drugs: None - *Family History Maternal Family History: Family History (Last Reviewed 01/05/20 @ 09:07 by Michelle Dillon) Mother CVA (cerebral vascular accident) Hypertension Alcoholism Heart disease Father Heart disease History Items: - Review of Systems Constitutional: Reports: Fever. Denies: Chills, Weight Change HEENT: Denies: Head Aches, Sinus Congestion, Sinus Drainage Cardiovascular: Denies: Chest Pain, Palpitations Respiratory: Denies: Cough, Shortness of breath at rest, Sputum production Gastrointestinal: Reports: Abdominal Pain, Nausea, Vomiting Genitourinary: Reports: Hematuria. Denies: Dysuria Musculoskeletal: Denies: Joint Pain, Joint Tenderness Skin: Denies: Rash, Wounds Neurological: Denies: Numbness, Tingling, Focal weakness Psychiatric: Denies: Anxiety, Depression Hematologic/ Lymphatic: Denies: Easy Bruising, Easy Bleeding VTE Information - Inpt Only VTE Present on Admission: No Patient Problems: Active and Suspected Problems (Last Reviewed 07/04/20 @ 10:[address] Simone Garcia MD) Abdominal pain (Acute) Ascites (Acute) Hematuria (Acute) Hyperkalemia (Acute) - Physical Exam Vitals/I&O's: Vital Signs Temp Pulse Resp BP Pulse Ox 98.2 F 99 18 142/75 H 95 07/06/20 18:46 07/06/20 18:46 07/06/20 18:46 07/06/20 18:46 07/06/20 18:46 Oxygen Delivery Method Room Air Weight: 138 lb Body Mass Index (BMI) 24.4 Intake and Output for Last 24 Hours 07/04/20 07/05/20 07/06/20 23:59 23:59 23:59 Intake Total 841.30 / 841.30 Balance 841.30 / 841.30 General: Alert, Oriented x3, Cooperative, No apparent distress HEENT: Atraumatic, PERRLA, EOMI, Normocephalic Oral: Moist Mucosa Neck: Supple, No JVD Lungs: Clear to auscultation, Normal air movement, No rhonchi, No wheeze, No rales Cardiovascular: Regular rate, Regular Rhythm, Normal S1, Normal S2, No murmurs Abdomen: Soft, Non-Distended, No Hepato-splenomegaly, Guarding, Tender - To palpation of her lower abdomen, however her reaction was not as significant when palpated with stethoscope Extremities: No edema, Capillary Refill Less than 3 Seconds Skin: No rashes, No breakdown Neurological: Neuro grossly intact, Sensory exam intact to light touch and pain Psych/Mental Status: Normal Affect, Appropriate Laboratory Results 07/06/20 12:20: WBC 20.3 H, RBC 3.22 L, Hgb 11.0 L, Hct 33.7 L, MCV 104.7 H, MCH 34.2 H, MCHC 32.6, RDW Std Deviation 55.7 H, RDW Coeff of Lianet 14.4, Plt Count 225, MPV 9.2, Immature Gran % (Auto) 1.200 H, Neut % (Auto) 93.1 H, Lymph % (Auto) 4.0 L, [place] % (Auto) 1.4, Eos % (Auto) 0.1, Baso % (Auto) 0.2, Absolute Neuts (auto) 18.9 H, Absolute Lymphs (auto) 0.81 L, Nucleated RBC % 0 07/06/20 12:20: Sodium 136, Potassium 5.8 H, Chloride 110 H, Carbon Dioxide 15.0 L, Anion Gap 11, BUN 80 H, Creatinine 6.39 H, Estim Creat Clear Calc 6.10, Est GFR (MDRD) Af Amer 8 L, Est GFR (MDRD) Non-Af 7 L, BUN/Creatinine Ratio 12.5, Glucose 93, Calcium 10.4 H, Total Bilirubin 0.60, AST 13 L, ALT 12 L, Alkaline Phosphatase 104, Total Protein 6.6, Albumin 3.0 L, Globulin 3.6, Albumin/Globulin Ratio 0.8 L 07/06/20 12:20: Lactic Acid 1.0 07/06/20 13:31: Urine Color Red, Urine Clarity Turbid, Urine pH 5.0, Ur Specific [place] 1.015, Urine Protein 100 H, Urine Glucose (UA) Normal, Urine Ketones Negative, Urine Occult Blood 250 H, Urine Nitrite Negative, Urine Bilirubin Neg ative, Urine Urobilinogen Normal, Ur Leukocyte Esterase 500 H, Urine RBC > 100 SEEN, Urine WBC >100 SEEN, Ur Squamous Epith Cells 0 SEEN, Urine Bacteria 0 SEEN, Urine Mucus 0 SEEN Current Medications Acetaminophen (Acetaminophen 325 Mg Tablet) 650 mg PO Q6H PRN PRN PRN Reason: Pain Score 1-10/Temp > 100.7 F Heparin Sodium (Porcine) (Heparin Injection (Vial) 5,000 Unit/Ml Vial) 5,000 unit SC Q8 [facility] Sodium Chloride () 1,000 mls @ 100 mls/hr IV .Q10H [facility] Last Infusion: 07/06/20 18:33 Dose: 0 mls/hr Documented by: Piperacillin Sod/Tazobactam (Sod 3.375 gm/ Sodium Chloride) 50 mls @ 12.5 mls/hr IV Q8 SRIRAM Melatonin (Melatonin 3 Mg Tablet) 3 mg PO QHS PRN PRN PRN Reason: INSOMNIA Morphine Sulfate (Morphine 2 Mg/Ml Syringe) 2 mg IV Q3H PRN PRN PRN Reason: Pain Score 6-10 Ondansetron HCl (Ondansetron 4 Mg/2 Ml Vial) 4 mg IV Q8H PRN PRN PRN Reason: NAUSEA/VOMITING Sodium Chloride (0.9% Saline Lock 10 Ml Syringe) 10 - 40 ml IV UD PRN PRN Reason: SALINE FLUSH Assessment/Plan All Active Problems (Last Reviewed 07/04/20 @ 10:[address] Simone Garcia MD) 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 (Acute) Iron refractory iron deficiency anemia (Acute) Abdominal pain (Acute) Ascites (Acute) Hematuria (Acute) Hyperkalemia (Acute) History of coronary artery stent placement (Resolved 10/09/08) Bradycardia (Resolved) Dehydration (Resolved) Hypokalemia (Resolved) UTI (urinary tract infection) (Resolved) 1. Acute abdominal pain/abdominal infection likely due to urological procedure on 07/04/2020 -Consult urology -Continue with Zosyn -CT of the abdomen pelvis demonstrated diffuse bladder wall thickening as well as patchy infiltrate in bilateral lower lobes of the lungs however she does not have any respiratory symptoms -ED had general surgery reviewed the films and they do not feel that there is anything intra-abdominal for them to manage and felt that this was all urologic 2. Chronic bilateral ureteral stents/CKD 4/acute renal failure/hyperparathyroidism secondary to renal insufficiency -Continue with the Lau as well as IV fluids -Consult to nephrology, upon chart review I did not find any previous referral to nephrology in our system -She has a left upper extremity fistula placed in 2019 -Continue with calcitriol and sodium bicarb 3. CAD status post stents/HTN/HLD/peripheral artery disease status post CEA/paroxysmal A. fib -Continue with amiodarone, her blood pressure is stable -Continue with aspirin, Lipitor, Plavix, metoprolol 4. Iron deficiency anemia -Hemoglobin is stable at 11 -Continue with iron replacement DVT: Heparin Inpatient E&M: [id number] Init Hosp L3
[2020-07-06] MEDS: 0.9% Normal Saline 1,000 ML 100 ML IV (21:05)
[2020-07-06] MEDS: 0.9% Saline Lock 10 ML Syringe IV (21:08)
[2020-07-06] MEDS: Heparin Injection (Vial) 5,000 UNIT/ML VIAL 5000 UNIT SC (21:13)
[2020-07-06] MEDS: Metoprolol Tartrate 25 MG Tablet PO (21:16)
[2020-07-06] MEDS: MELATONIN 3 MG TABLET PO (21:26)
[2020-07-07] MEDS: Morphine 2 MG/ML Syringe IV (00:05)
[2020-07-07 03:14] VITALS: BP 130/60; PULSE 93; RESP 16; TEMP 37; O2SAT 92
[2020-07-07] MEDS: Heparin Injection (Vial) 5,000 UNIT/ML VIAL 5000 UNIT SC ×3 (05:33→22:31)
[2020-07-07] MEDS: 0.9% Normal Saline 1,000 ML 100 ML IV ×2 (05:33→15:35)
[2020-07-07 07:49] LABS: Absolute Lymphocyte Count 0.75 X10^3/uL (0.83-4.51); Absolute Neutrophil Count 12.8 X10^3/uL (2.0-7.7); Basophil# 0.02 X10^3/uL; Basophil% 0.1 % (0-1); Eosinophils% 0.7 % (0-5); Hematocrit 27.3 % (37-47); Hemoglobin 8.6 g/dL (12.0-15.0); Lymphocyte # 0.75 X10^3/ul (4.0); Lymphocyte % 5.4 % (19-41); Mean Corp Hgb Conc 31.5 g/dL (32-36); Mean Corpuscular Hgb 33.2 pg (27.0-32.0); Mean Corpuscular Volume 105.4 fL (81-99); Mean Platelet Vol. 9.4 fl (6.2-12.0); Monocyte# 0.24 X10^3/uL; Monocyte% 1.7 % (0-10); NRBC Flagged by Analyzer 0 % (0-5); Neutrophil # 12.75 X10^3/uL (2.7-7.7); Neutrophil % 91.5 % (47-70); Platelet Count 194 K/mm3 (150-450); RBC Distribution Width CV 14.6 % (11.6-14.6); RBC Distribution Width SD 56.4 fl (35.1-43.9); Red Blood Count 2.59 M/mm3 (4.2-5.4); White Blood Count 13.9 K/mm3 (4.4-11.0)
[2020-07-07 08:00] VITALS: BP 149/60; PULSE 92; RESP 16; TEMP 37; O2SAT 93
[2020-07-07 08:11] LABS: Anion Gap 11 (5-15); BUN 70 mg/dL (7-18); BUN/Creat Ratio 14.4 RATIO (10-20); Calcium,Total 9.7 mg/dL (8.5-10.1); Chloride 115 mmol/L (98-107); Creatinine, Serum 4.87 mg/dL (0.55-1.02); EST Glomerular Filtration Rate 9 mL/min (>60); Est Glom Filt Rate - Afr Amer 11 mL/min (>60); Glucose 97 mg/dL (74-106); Potassium 4.2 mmol/L (3.5-5.1); Sodium Level 143 mmol/L (136-145)
[2020-07-07] MEDS: Aspirin 81 MG TAB.CHEW PO (08:11)
--- NOTE | 2020-07-07 09:38 | PCM.CONS.U ---
Reason for Consult Date of Consultation: 07/07/20 Reason for Consultation: Urinary tract infection recent stent change difficult History of Present Illness: The patient is a 79 year old female who underwent a stent change on Thursday this past week it was complicated by the fact that the right stent was mispositioned I had to perform ureteroscopy and extraction of the stent that had migrated up the ureter. I then placed a new stent. She went home but she called me Thursday morning reported that she had no urine output had some blood in the urine that was not feeling well so instructed to go to the emergency room on which she was admitted and was found to have elevated creatinine hydronephrosis of the right kidney and a missed position stent on the right side. Her creatinine is improving she is clinically stable she is on antibiotics for UTI. Past Medical History Past Medical History (Chronic Problems): Chronic Problems (Last Reviewed 07/04/20 @ 10:[address] 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) N13.2 Atherosclerosis of coronary artery of [place] heart without angina pectoris (Chronic) I25.10 Essential (primary) hypertension (Chronic) I10 Stenosis of left carotid artery (Chronic) I65.22 HLD (hyperlipidemia) (Chronic) E78.5 Heart disease I51.9 Hyperparathyroidism due to renal insufficiency N25.81 Hypothyroidism E03.9 Iron deficiency anemia D50.9 Obstructive nephropathy N13.8 Urinary tract infection N39.0 Vitamin deficiency E56.9 Arthritis M19.90 Chronic renal disease, stage IV N18.4 Normochromic normocytic anemia D64.9 Acute pyelonephritis N10 Sepsis A41.9 Allergies lisinopril Allergy (Verified 07/06/20 10:40) Hives Sulfa (Sulfonamide Antibiotics) Allergy (Verified 07/06/20 10:40) Hives Home Medications: Ambulatory Orders Medication Instructions Recorded Aspirin [Aspirin, Baby] 81 mg PO DAILY 05/01/16 Ferrous Sulfate 325 mg PO DAILY 01/11/19 Acetaminophen [Tylenol Arthritis] 1,300 mg PO BID 04/05/19 Calcitriol [Rocaltrol] 0.25 mcg PO MOTUWETHFR 10/28/19 Sodium Bicarbonate 650 mg PO DAILY 12/15/19 metoprolol tartrate 25 mg tablet 25 mg PO BID #180 tab 03/09/20 clopidogrel 75 mg tablet 75 mg PO DAILY #90 tab 03/29/20 Ciprofloxacin [Cipro] 250 mg PO BID #10 tab 07/04/20 Amiodarone HCl [Pacerone] 100 mg PO DAILY 07/06/20 Atorvastatin Calcium 10 mg PO DAILY 07/06/20 Surgical History: Surgical History (Last Reviewed 01/05/20 @ 09:07 by Michelle Dillon) History of coronary artery stent placement (Resolved) Onset Date: 10/09/08 Z95.5 PCI-BMS-Mid LAD 10/09/2008 history Left brachial AV fistula creation Onset Date: ~04/11/19 History of left-sided carotid endarterectomy Z98.890 Left carotid stent in 2008 History of total abdominal hysterectomy and bilateral salpingo-oophorectomy Z90.710, Z90.722, Z90.August History of ureter stent Z96.0 Bilateral, stents place for b/l hydronephrosis, suspected secondary to enlarged uterus but continued issue s/p hysterectomy. Hx of cataract surgery Z98.49 Surgical History: hysterectomy, - Psychiatric History: No pertinent psych hx Smoking Status: Never smoker Alcohol: None Drugs: None - *Family History Maternal Family History: Family History (Last Reviewed 01/05/20 @ 09:07 by Michelle Dillon) Mother CVA (cerebral vascular accident) Hypertension Alcoholism Heart disease Father Heart disease History Items: - Review of Systems Constitutional: Denies: Chills, Fever, Weight Change HEENT: Denies: Head Aches, Sinus Congestion, Sinus Drainage Cardiovascular: Denies: Chest Pain, Palpitations Respiratory: Denies: Cough, Shortness of breath at rest, Sputum production Gastrointestinal: Denies: Abdominal Pain, Nausea, Vomiting Genitourinary: Denies: Dysuria Musculoskeletal: Denies: Joint Pain, Joint Tenderness Skin: Denies: Rash, Wounds Neurological: Denies: Numbness, Tingling, Focal weakness Psychiatric: Denies: Anxiety, Depression, Homicidal Ideations, Suicidal Ideations Hematologic/ Lymphatic: Denies: Easy Bruising, Easy Bleeding Physical Exam - Physical Exam Vital Signs Temp 98.6 F 07/07/20 08:00 Pulse 92 07/07/20 08:00 Resp 16 07/07/20 08:00 BP 149/60 H 07/07/20 08:00 Pulse Ox 93 07/07/20 08:00 Intake & Output 07/05/20 07/06/20 07/07/20 23:59 23:59 23:59 Intake Total 841.30 / 841.30 1486.67 / 1486.67 Output Total 1000 / 1000 Balance 841.30 / 841.30 486.67 / 486.67 Weight: 62.596 kg Intake: Oral 590 / 590 Intake, IV Amount 841.30 / 841.30 896.67 / 896.67 0.9% Normal Saline 1,000 ML @ 731.25 / 731.25 846.67 / 846.67 100 mls/hr IV .Q10H [facility] Rx#: [id number] Calcium Gluconate 1 GM/10 ML In 60 / 60 Dextrose 5%-Water 50 ML @ 60 mls/hr IV X1 [facility] Rx#:[id number] Humalog (BKC) 5 UNIT In Syringe 0.05 / 0.05 1 ML @ 3 mls/hr IV X1 [facility] Rx#: [id number] Rocephin 1 gm In 50 ml @ 100 50 / 50 mls/hr IV X1 ONE Rx#:[id number] Zosyn 3.375 GM In 0.9% Normal 50 / 50 Saline 50 ML @ 12.5 mls/hr IV Q12 [facility] Rx#:[id number] Output: Urine 1000 / 1000 General: Alert, Oriented x3 HEENT: Atraumatic Oral: Moist Mucosa Neck: Supple Lungs: Normal air movement Cardiovascular: Regular rate Laboratory Tests Past 24 Hrs 07/06/20 07/06/20 07/06/20 12:20 12:20 12:20 WBC 20.3 H RBC 3.22 L Hgb 11.0 L Hct 33.7 L MCV 104.7 H MCH 34.2 H MCHC 32.6 RDW Std Deviation 55.7 H RDW Coeff of Lianet 14.4 Plt Count 225 MPV 9.2 Immature Gran % (Auto) 1.200 H Neut % (Auto) 93.1 H Lymph % (Auto) 4.0 L [place] % (Auto) 1.4 Eos % (Auto) 0.1 Baso % (Auto) 0.2 Absolute Neuts (auto) 18.9 H Absolute Lymphs (auto) 0.81 L Nucleated RBC % 0 Sodium 136 Potassium 5.8 H Chloride 110 H Carbon Dioxide 15.0 L Anion Gap 11 BUN 80 H Creatinine 6.39 H Estim Creat Clear Calc 6.10 Est GFR (MDRD) Af Amer 8 L Est GFR (MDRD) Non-Af 7 L BUN/Creatinine Ratio 12.5 Glucose 93 Lactic Acid 1.0 Calcium 10.4 H Total Bilirubin 0.60 AST 13 L ALT 12 L Alkaline Phosphatase 104 Total Protein 6.6 Albumin 3.0 L Globulin 3.6 Albumin/Globulin Ratio 0.8 L Urine Color Urine Clarity Urine pH Ur Specific [place] Urine Protein Urine Glucose (UA) Urine Ketones Urine Occult Blood Urine Nitrite Urine Bilirubin Urine Urobilinogen Ur Leukocyte Esterase Urine RBC Urine WBC Ur Squamous Epith Cells Urine Bacteria Urine Mucus 07/06/20 07/07/20 07/07/20 13:31 06:50 06:50 WBC 13.9 H RBC 2.59 L Hgb 8.6 L Hct 27.3 L MCV 105.4 H MCH 33.2 H MCHC 31.5 L RDW Std Deviation 56.4 H RDW Coeff of Lianet 14.6 Plt Count 194 MPV 9.4 Immature Gran % (Auto) 0.600 Neut % (Auto) 91.5 H Lymph % (Auto) 5.4 L [place] % (Auto) 1.7 Eos % (Auto) 0.7 Baso % (Auto) 0.1 Absolute Neuts (auto) 12.8 H Absolute Lymphs (auto) 0.75 L Nucleated RBC % 0 Sodium 143 Potassium 4.2 Chloride 115 H Carbon Dioxide 17.0 L Anion Gap 11 BUN 70 H Creatinine 4.87 H Estim Creat Clear Calc 8.00 Est GFR (MDRD) Af Amer 11 L Est GFR (MDRD) Non-Af 9 L BUN/Creatinine Ratio 14.4 Glucose 97 Lactic Acid Calcium 9.7 Total Bilirubin AST ALT Alkaline Phosphatase Total Protein Albumin Globulin Albumin/Globulin Ratio Urine Color Red Urine Clarity Turbid Urine pH 5.0 Ur Specific [place] 1.015 Urine Protein 100 H Urine Glucose (UA) Normal Urine Ketones Negative Urine Occult Blood 250 H Urine Nitrite Negative Urine Bilirubin Negative Urine Urobilinogen Normal Ur Leukocyte Esterase 500 H Urine RBC > 100 SEEN Urine WBC >100 SEEN Ur Squamous Epith Cells 0 SEEN Urine Bacteria 0 SEEN Urine Mucus 0 SEEN Assessment/Plan All Active Problems (Last Reviewed 07/04/20 @ 10:[address] Simone Garcia MD) 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 (Acute) Iron refractory iron deficiency anemia (Acute) Abdominal pain (Acute) Ascites (Acute) Hematuria (Acute) Hyperkalemia (Acute) History of coronary artery stent placement (Resolved 10/09/08) Bradycardia (Resolved) Dehydration (Resolved) Hypokalemia (Resolved) UTI (urinary tract infection) (Resolved) 79-year-old female multiple medical problems including chronic renal failure with acute kidney injury secondary dehydration urinary tract infection on CAT scan she was found to have a mispositioned stent on the right side she does have right hydronephrosis and the stent is coiled in the UPJ and is not draining the kidney properly. She is making urine now and her creatinine is improving I had to take her back to surgery on Thursday and will plan to do a cystoscopy and place a new stent on the right side to ensure good kidney drainage. He is clinically stable now white counts improving her creatinine is improving. Shot to be n.p.o. Thursday night for surgery Thursday.
[2020-07-07] MEDS: Amiodarone 200 MG Tablet 100 MG PO (09:43)
[2020-07-07 09:44] VITALS: PULSE 92
[2020-07-07] MEDS: Metoprolol Tartrate 25 MG Tablet PO ×2 (09:44→22:31)
[2020-07-07] MEDS: Sodium Bicarbonate 650 MG Tablet PO (09:46)
[2020-07-07] MEDS: Ferrous Sulfate 325 MG Tablet PO (11:37)
--- NOTE | 2020-07-07 13:53 | PN_ITS ---
Patient Problems: Active and Suspected Problems (Last Reviewed 07/07/20 @ 09:[address] Simone Garcia MD) Abdominal pain (Acute) Ascites (Acute) Hematuria (Acute) Hyperkalemia (Acute) Subjective: Patient seen and examined. She was admitted with a complaint of abdominal pain. She had her ureteral stents replaced on 07/04/2020 and says she felt fine after that. However subsequently started having nausea and vomiting and started having severe lower abdominal pain on the day of admission. On admission, white cell count was elevated at 20.3 and creatinine was 6.39 with a baseline around 3.5. She also complained of hematuria and chills. She was admitted to be managed for likely urologic stent infection after she had a urologic procedure on 07/04/2020. She was started on Zosyn. Patient seen and examined. She complains of lower abdominal pain. Chills have improved. Review of systems otherwise negative. And is trending at 4.87 WBC is down to 13.9. Vitals/I&O's: Vital Signs Temp Pulse Resp BP Pulse Ox 98.6 F 92 16 149/60 H 93 07/07/20 08:00 07/07/20 09:44 07/07/20 08:00 07/07/20 08:00 07/07/20 08:00 Oxygen Delivery Method Room Air Weight: 138 lb 0.009 oz Body Mass Index (BMI) 24.4 Intake and Output for Last 24 Hours 07/05/20 07/06/20 07/07/20 23:59 23:59 23:59 Intake Total 841.30 / 841.30 1486.67 / 1486.67 Output Total 1000 / 1000 Balance 841.30 / 841.30 486.67 / 486.67 General: Alert, Oriented x3, Cooperative, No apparent distress HEENT: Atraumatic, PERRLA, EOMI, Normocephalic Oral: Dry Mucosa Neck: Supple, No JVD, Negative Carotid Bruits Lungs: Clear to auscultation, Normal air movement, No rhonchi, No wheeze, No rales Cardiovascular: Regular rate, Regular Rhythm, Normal S1, Normal S2, No murmurs Abdomen: Bowel Sounds Present, Soft, - - mild suprapubic tenderness, no guarding or rebound tenderness. Extremities: No edema, Capillary Refill Less than 3 Seconds Skin: No rashes, No breakdown Musculoskeletal: No Tenderness to Palpation of Joints or Extremities Lymphatic: No Cervical, Supraclavicular, or Inguinal Adenopathy Neurological: Cranial nerves II-XII grossly intact Psych/Mental Status: Normal Affect, Appropriate, Alert and oriented to time, place, person, mood and affect Microbiology Past 72 Hours 07/06/20 13:31 Urine, Clean Catch Urine Culture - Final Yeast, not Marlys albicans Laboratory Results 07/06/20 13:31: Urine Color Red, Urine Clarity Turbid, Urine pH 5.0, Ur Specific [place] 1.015, Urine Protein 100 H, Urine Glucose (UA) Normal, Urine Ketones Negative, Urine Occult Blood 250 H, Urine Nitrite Negative, Urine Bilirubin Negative, Urine Urobilinogen Normal, Ur Leukocyte Esterase 500 H, Urine RBC > 100 SEEN, Urine WBC >100 SEEN, Ur Squamous Epith Cells 0 SEEN, Urine Bacteria 0 SEEN, Urine Mucus 0 SEEN 07/07/20 06:50: WBC 13.9 H, RBC 2.59 L, Hgb 8.6 L, Hct 27.3 L, MCV 105.4 H, MCH 33.2 H, MCHC 31.5 L, RDW Std Deviation 56.4 H, RDW Coeff of Lianet 14.6, Plt Count 194, MPV 9.4, Immature Gran % (Auto) 0.600, Neut % (Auto) 91.5 H, Lymph % (Auto) 5.4 L, [place] % (Auto) 1.7, Eos % (Auto) 0.7, Baso % (Auto) 0.1, Absolute Neuts (auto) 12.8 H, Absolute Lymphs (auto) 0.75 L, Nucleated RBC % 0 07/07/20 06:50: Sodium 143, Potassium 4.2, Chloride 115 H, Carbon Dioxide 17.0 L , Anion Gap 11, BUN 70 H, Creatinine 4.87 H, Estim Creat Clear Calc 8.00, Est GFR (MDRD) Af Amer 11 L, Est GFR (MDRD) Non-Af 9 L, BUN/Creatinine Ratio 14.4, Glucose 97, Calcium 9.7 Diagnostic Data Abdomen/Pelvis CT 07/06/20 11:16 IMPRESSION: Bilateral double-J stent catheters. Moderate degree of right hydronephrosis and hydroureter. Mildly distended gallbladder containing gallstones or sludge. Diffuse bladder wall thickening. Ascites. Patchy infiltrate in the right lower lobe with increased markings at the left lung base. Electronically Signed: Christopher Smart MD at 14:29 EST , Service support , Chest X-Ray 07/06/20 15:50 IMPRESSION: New mild elevation of the right diaphragm and multifocal atelectasis at the right lung base. Left lung is expanded and clear. Negative for pneumothorax or substantial pleural effusion. Electronically Signed: Diane Whatley MD at 16:49 EST , Service support , Current Medications Acetaminophen (Acetaminophen 325 Mg Tablet) 650 mg PO Q6H PRN PRN PRN Reason: Pain Score 1-10/Temp > 100.7 F Amiodarone HCl (Amiodarone 200 Mg Tablet) 100 mg PO DAILY [facility] Last Admin: 07/07/20 09:43 Dose: 100 mg Documented by: Aspirin ([facility]in 81 Mg [facility].Chew) [facility] Last Admin: 07/07/20 08:11 Dose: 81 mg Documented by: Atorvastatin Calcium (Atorvastatin Calcium 10 Mg Tablet) 10 mg PO DAILY@2200 [facility] Calcitriol (Calcitriol 0.25 Mcg Capsule) 0.25 mcg PO MOTUWETHFR [facility] Last Admin: 07/06/20 20:44 Dose: Not Given Documented by: Clopidogrel Bisulfate (Clopidogrel Bisulfate 75 Mg Tablet) 75 mg PO DAILY [facility] Last Admin: 07/07/20 09:46 Dose: Not Given Documented by: Ferrous Sulfate (Ferrous Sulfate 325 Mg Tablet) 325 mg PO DAILY@1200 [facility] Last Admin: 07/07/20 11:37 Dose: 325 mg Documented by: Heparin Sodium (Porcine) (Heparin Injection (Vial) 5,000 Unit/Ml Vial) 5,000 unit SC Q8 [facility] Last Admin: 07/07/20 05:33 Dose: 5,000 unit Documented by: Sodium Chloride () 1,000 mls @ 100 mls/hr IV .Q10H [facility] Last Admin: 07/07/20 05:33 Dose: 100 mls/hr Documented by: Piperacillin Sod/Tazobactam (Sod 3.375 gm/ Sodium Chloride) 50 mls @ 12.5 mls/hr IV Q12 [facility] Last Admin: 07/07/20 09:46 Dose: 12.5 mls/hr Documented by: Melatonin (Melatonin 3 Mg Tablet) 3 mg PO QHS PRN PRN PRN Reason: INSOMNIA Last Admin: 07/06/20 21:26 Dose: 3 mg Documented by: Metoprolol Tartrate (Metoprolol Tartrate 25 Mg Tablet) 25 mg PO BID [facility] Last Admin: 07/07/20 09:44 Dose: 25 mg Documented by: Morphine Sulfate (Morphine 2 Mg/Ml Syringe) 2 mg IV Q3H PRN PRN PRN Reason: Pain Score 6-10 Last Admin: 07/07/20 00:05 Dose: 2 mg Documented by: Nutritional Formula (Lactose Free) (Ensure Clear 120 Ml Liquid) 120 ml PO 4X/DAY [facility] Ondansetron HCl (Ondansetron 4 Mg/2 Ml Vial) 4 mg IV Q8H PRN PRN PRN Reason: NAUSEA/VOMITING Sodium Bicarbonate (Sodium Bicarbonate 650 Mg Tablet) 650 mg PO DAILY [facility] Last Admin: 07/07/20 09:46 Dose: 650 mg Documented by: Sodium Chloride (0.9% Saline Lock 10 Ml Syringe) 10 - 40 ml IV UD PRN PRN Reason: SALINE FLUSH Last Admin: 07/06/20 21:08 Dose: 10 ml Documented by: Medical Necessity - Tobacco Use Smoking Status: Never smoker Assessment/Plan All Active Problems (Last Reviewed 07/07/20 @ 09:[address] Simone Garcia MD) 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 (Acute) Iron refractory iron deficiency anemia (Acute) Abdominal pain (Acute) Ascites (Acute) Hematuria (Acute) Hyperkalemia (Acute) History of coronary artery stent placement (Resolved 10/09/08) Bradycardia (Resolved) Dehydration (Resolved) Hypokalemia (Resolved) UTI (urinary tract infection) (Resolved) #UTI due to infected ureteral stents * CT of the abdomen and pelvis showed bilateral double-J stent catheters a moderate degree of right hydronephrosis and right hydroureter with mildly distended gallbladder containing gallstones or sludge and diffuse bladder wall thickening as well as ascites and patchy infiltrate in the right lower lobe with increased markings at the left lung base. * Urology, she has some mispositioned stent on the right side with right-sided hydronephrosis and the stent is coiled in the UPJ and not draining the kidney properly. * Urology on board. Take patient back to surgery on Thursday. * On IV Zosyn. Blood and urine cultures pending. * Hydrate gently with IV fluids. * wbc trended down to 13.9. * #Cameron on CKD 3: Creatinine down from 6.39-4.87. Continue gentle hydration with IV fluids. On sodium bicarb and calcitriol for CKD #Non-anion gap metabolic acidosis: * Bicarb is 17 today. Was 15 yesterday. * Anion gap is 11. Likely due to CAMERON on CKD. * Continue hydration and continue sodium bicarb. * #Cholelithiasis: * CT showed mildly distended gallbladder with gallstones and mild sludge. * Patient currently has no right upper quadrant symptoms. * Will check gallbladder ultrasound to see how distended the wall is. * there's no current evidence of acute cholecystitis as the symptoms and elevated white cell count are likely due to the infected ureteral stents. #CAD s/p stents: On aspirin and Plavix as well as metoprolol and Lipitor. #Iron deficiency anemia: Hemoglobin dropped from 11-8.6. This is likely due to hydration with IV fluids. Will monitor. #Paroxysmal A. fib: On amiodarone and metoprolol Not on any blood thinners at home. #Hyperlipidemia: On statins DVT prophylaxis: heparin Inpatient E&M: [id number] [facility] L3
[2020-07-07 14:14] VITALS: BP 126/49; PULSE 79; RESP 18; TEMP 37.2; O2SAT 98
[2020-07-07] MEDS: Ensure Clear 120 ML Liquid PO ×3 (14:40→22:32)
[2020-07-07 20:20] VITALS: BP 140/48; PULSE 87; RESP 18; TEMP 37.5; O2SAT 95
[2020-07-07 22:31] VITALS: PULSE 88
[2020-07-07] MEDS: Atorvastatin Calcium 10 MG Tablet PO (22:32)
[2020-07-08] VITALS (7 sets, daily range): BP systolic 109–160; BP diastolic 46–71; PULSE 73–99; RESP 16–18; TEMP 36.7–37.1; O2SAT 92–96; BMI 24.4
[2020-07-08] MEDS: 0.9% Normal Saline 1,000 ML 100 ML IV ×3 (01:47→21:14)
[2020-07-08 04:51] LABS: Hematocrit 24.9 % (37-47); Hemoglobin 7.8 g/dL (12.0-15.0); Mean Corp Hgb Conc 31.3 g/dL (32-36); Mean Corpuscular Hgb 32.9 pg (27.0-32.0); Mean Corpuscular Volume 105.1 fL (81-99); Mean Platelet Vol. 9.3 fl (6.2-12.0); Platelet Count 173 K/mm3 (150-450); RBC Distribution Width CV 14.6 % (11.6-14.6); RBC Distribution Width SD 56.6 fl (35.1-43.9); Red Blood Count 2.37 M/mm3 (4.2-5.4); White Blood Count 8.6 K/mm3 (4.4-11.0)
[2020-07-08] MEDS: Heparin Injection (Vial) 5,000 UNIT/ML VIAL 5000 UNIT SC ×2 (05:04→14:08)
[2020-07-08 05:09] LABS: BUN 58 mg/dL (7-18); Creatinine, Serum 3.66 mg/dL (0.55-1.02); Estimated Creatinine Clearance 10.65 ml/min; Glucose 98 mg/dL (74-106)
[2020-07-08 05:10] LABS: Albumin, Serum 1.9 g/dL (3.2-5.0); BUN/Creat Ratio 15.8 RATIO (10-20); Calcium,Total 9.1 mg/dL (8.5-10.1); Chloride 117 mmol/L (98-107); EST Glomerular Filtration Rate 13 mL/min (>60); Est Glom Filt Rate - Afr Amer 15 mL/min (>60); Phosphorus 3.5 mg/dL (2.5-4.9); Potassium 3.5 mmol/L (3.5-5.1); Sodium Level 144 mmol/L (136-145)
[2020-07-08] MEDS: Ensure Clear 120 ML Liquid PO ×3 (09:52→17:39)
[2020-07-08] MEDS: Amiodarone 200 MG Tablet 100 MG PO (09:54)
[2020-07-08] MEDS: Metoprolol Tartrate 25 MG Tablet PO ×2 (09:55→21:12)
[2020-07-08] MEDS: Sodium Bicarbonate 650 MG Tablet PO (09:55)
--- NOTE | 2020-07-08 10:39 | PCM.PN.HOSP ---
Patient Problems: Active and Suspected Problems (Last Reviewed 07/07/20 @ 09:[address] Simone Garcia MD) Abdominal pain (Acute) Ascites (Acute) Hematuria (Acute) Hyperkalemia (Acute) Subjective: Patient seen and examined. Her pain has improved, especially when she lies still. Review of systems otherwise negative. Cr is trending down. She has remained hemodynamically stable. Patient tells me that she and her family would want to have another urologist evaluate her and probably fix the malpositioned stent. I did speak to Dr Garcia, her urologist, who stated that he would prefer to fix the malpositioned stent, and then patient was welcome to follow up with another urologist on outpatient basis. He will come in and explain this to patient and her family. Vitals/I&O's: Vital Signs Temp Pulse Resp BP Pulse Ox 98.0 F 78 16 149/49 H 95 07/08/20 09:37 07/08/20 09:55 07/08/20 09:37 07/08/20 09:37 07/08/20 09:37 Oxygen Delivery Method Room Air Weight: 138 lb 0.009 oz Body Mass Index (BMI) 24.4 Intake and Output for Last 24 Hours 07/06/20 07/07/20 07/08/20 23:59 23:59 23:59 Intake Total 841.30 / 841.30 2536.67 / 2536.67 1050 / 1050 Output Total 1000 / 1000 1925 / 1925 Balance 841.30 / 841.30 1536.67 / 1536.67 -875 / -875 General: Alert, Oriented x3, Cooperative, No apparent distress HEENT: Atraumatic, PERRLA, EOMI, Normocephalic Oral: Dry Mucosa Neck: Supple, No JVD, Negative Carotid Bruits Lungs: Clear to auscultation, Normal air movement, No rhonchi, No wheeze, No rales Cardiovascular: Regular rate, Regular Rhythm, Normal S1, Normal S2, No murmurs Abdomen: Bowel Sounds Present, Soft, - - minimal suprapubic tenderness, no guarding or rebound tenderness. Extremities: No edema, Capillary Refill Less than 3 Seconds Skin: No rashes, No breakdown Musculoskeletal: No Tenderness to Palpation of Joints or Extremities Lymphatic: No Cervical, Supraclavicular, or Inguinal Adenopathy Neurological: Cranial nerves II-XII grossly intact Psych/Mental Status: Normal Affect, Appropriate, Alert and oriented to time, place, person, mood and affect Microbiology Past 72 Hours 07/06/20 13:31 Urine, Clean Catch Urine Culture - Final Yeast, not Kirsh albicans Laboratory Results 07/06/20 13:31: Urine Color Red, Urine Clarity Turbid, Urine pH 5.0, Ur Specific Halma 1.015, Urine Protein 100 H, Urine Glucose (UA) Normal, Urine Ketones Negative, Urine Occult Blood 250 H, Urine Nitrite Negative, Urine Bilirubin Negative, Urine Urobilinogen Normal, Ur Leukocyte Esterase 500 H, Urine RBC > 100 SEEN, Urine WBC >100 SEEN, Ur Squamous Epith Cells 0 SEEN, Urine Bacteria 0 SEEN, Urine Mucus 0 SEEN 07/08/20 04:23: Sodium 144, Potassium 3.5, Chloride 117 H, Carbon Dioxide 19.0 L, BUN 58 H, Creatinine 3.66 H, Estim Creat Clear Calc 10.65, Est GFR (MDRD) Af Amer 15 L, Est GFR (MDRD) Non-Af 13 L, BUN/Creatinine Ratio 15.8, Glucose 98, Calcium 9.1, Phosphorus 3.5, Albumin 1.9 L 07/08/20 04:23: WBC 8.6, RBC 2.37 L, Hgb 7.8 L, Hct 24.9 L, MCV 105.1 H, MCH 32.9 H, MCHC 31.3 L, RDW Std Deviation 56.6 H, RDW Coeff of Lianet 14.6, Plt Count 173, MPV 9.3 Current Medications Acetaminophen (Acetaminophen 325 Mg Tablet) 650 mg PO Q6H PRN PRN PRN Reason: Pain Score 1-10/Temp > 100.7 F Amiodarone HCl (Amiodarone 200 Mg Tablet) 100 mg PO DAILY [facility] Last Admin: 07/08/20 09:54 Dose: 100 mg Documented by: Aspirin (Aspirin 81 Mg Tab.Chew) [facility] Last Admin: 07/08/20 10:02 Dose: Not Given Documented by: Atorvastatin Calcium (Atorvastatin Calcium 10 Mg Tablet) 10 mg PO DAILY@2200 [facility] Last Admin: 07/07/20 22:32 Dose: 10 mg Documented by: Calcitriol (Calcitriol 0.25 Mcg Capsule) 0.25 mcg PO MOTUWETHFR [facility] Last Admin: 07/06/20 20:44 Dose: Not Given Documented by: Clopidogrel Bisulfate (Clopidogrel Bisulfate 75 Mg Tablet) 75 mg PO DAILY [facility] Last Admin: 07/08/20 10:03 Dose: Not Given Documented by: Ferrous Sulfate (Ferrous Sulfate 325 Mg Tablet) 325 mg PO DAILY@1200 [facility] Last Admin: 07/07/20 11:37 Dose: 325 mg Documented by: Heparin Sodium (Porcine) (Heparin Injection (Vial) 5,000 Unit/Ml Vial) 5,000 unit SC Q8 [facility] Last Admin: 07/08/20 05:04 Dose: 5,000 unit Documented by: Sodium Chloride () 1,000 mls @ 100 mls/hr IV .Q10H [facility] Last Admin: 07/08/20 01:47 Dose: 100 mls/hr Documented by: Piperacillin Sod/Tazobactam (Sod 3.375 gm/ Sodium Chloride) 50 mls @ 12.5 mls/hr IV Q12 [facility] Last Admin: 07/08/20 09:56 Dose: 12.5 mls/hr Documented by: Melatonin (Melatonin 3 Mg Tablet) 3 mg PO QHS PRN PRN PRN Reason: INSOMNIA Last Admin: 07/06/20 21:26 Dose: 3 mg Documented by: Metoprolol Tartrate (Metoprolol Tartrate 25 Mg Tablet) 25 mg PO BID [facility] Last Admin: 07/08/20 09:55 Dose: 25 mg Documented by: Morphine Sulfate (Morphine 2 Mg/Ml Syringe) 2 mg IV Q3H PRN PRN PRN Reason: Pain Score 6-10 Last Admin: 07/07/20 00:05 Dose: 2 mg Documented by: Nutritional Formula (Lactose Free) (Ensure Clear 120 Ml Liquid) 120 ml PO 4X/DAY [facility] Last Admin: 07/08/20 09:52 Dose: 120 ml Documented by: Ondansetron HCl (Ondansetron 4 Mg/2 Ml Vial) 4 mg IV Q8H PRN PRN PRN Reason: NAUSEA/VOMITING Sodium Bicarbonate (Sodium Bicarbonate 650 Mg Tablet) 650 mg PO DAILY [facility] Last Admin: 07/08/20 09:55 Dose: 650 mg Documented by: Sodium Chloride (0.9% Saline Lock 10 Ml Syringe) 10 - 40 ml IV UD PRN PRN Reason: SALINE FLUSH Last Admin: 07/06/20 21:08 Dose: 10 ml Documented by: STROKE Vital Signs/Narrative: Vital Signs Temp Pulse Resp BP Pulse Ox 07/08/20 09:55 78 07/08/20 09:37 98.0 F 78 16 149/49 H 95 07/08/20 09:08 98.8 F 73 16 109/46 L 92 Medical Necessity - Tobacco Use Smoking Status: Never smoker Assessment/Plan All Active Problems (Last Reviewed 07/07/20 @ 09:[address] Simone Garcia MD) 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 (Acute) Iron refractory iron deficiency anemia (Acute) Abdominal pain (Acute) Ascites (Acute) Hematuria (Acute) Hyperkalemia (Acute) History of coronary artery stent placement (Resolved 10/09/08) Bradycardia (Resolved) Dehydration (Resolved) Hypokalemia (Resolved) UTI (urinary tract infection) (Resolved) #UTI due to infected ureteral stents CT of the abdomen and pelvis showed bilateral double-J stent catheters a moderate degree of right hydronephrosis and right hydroureter with mildly distended gallbladder containing gallstones or sludge and diffuse bladder wall thickening as well as ascites and patchy infiltrate in the right lower lobe with increased markings at the left lung base. Urology, she has some mispositioned stent on the right side with right-sided hydronephrosis and the stent is coiled in the UPJ and not draining the kidney properly. Urology on board. Take patient back to surgery on Thursday. On IV Zosyn. urine cultures growing yeast, not krish. Will get blood cultures Hydrate gently with IV fluids. wbc down to 8.6 #Cameron on CKD 3: Creatinine down to 3.66. Continue gentle hydration with IV fluids. On sodium bicarb and calcitriol for CKD #Non-anion gap metabolic acidosis: Bicarb is 19. Resolved Anion gap is 11. Likely due to CAMERON on CKD. Continue hydration and continue sodium bicarb. #Cholelithiasis: CT showed mildly distended gallbladder with gallstones and mild sludge. Patient currently has no right upper quadrant symptoms. Will check gallbladder ultrasound to see how distended the wall is. there's no current evidence of acute cholecystitis as the symptoms and elevated white cell count are likely due to the infected ureteral stents and wbc has trended down #CAD s/p stents: On aspirin and Plavix as well as metoprolol and Lipitor. #Iron deficiency anemia: Hb is down to 7.8 today. her baseline is ~ 8-10. May also be hemodilutional, as all cell lines have trended down with hydration. Transfuse if Hb<7 #Paroxysmal A. fib: On amiodarone and metoprolol Not on any blood thinners at home. #Hyperlipidemia: On statins DVT prophylaxis: heparin Inpatient E&M: 50177 Subs Hosp L2
[2020-07-08] MEDS: Ferrous Sulfate 325 MG Tablet PO (12:25)
[2020-07-08] MEDS: 0.9% Saline Lock 10 ML Syringe IV (16:30)
[2020-07-08] MEDS: Ondansetron 4 MG/2 ML Vial IV (16:30)
[2020-07-08] MEDS: Atorvastatin Calcium 10 MG Tablet PO (21:12)
[2020-07-08] MEDS: Morphine 2 MG/ML Syringe IV (21:14)
[2020-07-08] MEDS: MELATONIN 3 MG TABLET PO (23:44)
[2020-07-09] VITALS (11 sets, daily range): BP systolic 131–168; BP diastolic 56–79; PULSE 68–94; RESP 14–18; TEMP 36.3–37.2; O2SAT 93–98; BMI 24.4
[2020-07-09 03:57] LABS: Absolute Lymphocyte Count 0.95 X10^3/uL (0.83-4.51); Absolute Neutrophil Count 4.3 X10^3/uL (2.0-7.7); Basophil# 0.02 X10^3/uL; Basophil% 0.3 % (0-1); Eosinophil# 0.12 X10^3/uL; Hemoglobin 8.4 g/dL (12.0-15.0); Lymphocyte # 0.95 X10^3/ul (4.0); Lymphocyte % 15.9 % (19-41); Mean Corp Hgb Conc 31.1 g/dL (32-36); Mean Corpuscular Hgb 32.8 pg (27.0-32.0); Mean Corpuscular Volume 105.5 fL (81-99); Mean Platelet Vol. 9.1 fl (6.2-12.0); Monocyte# 0.49 X10^3/uL; Monocyte% 8.2 % (0-10); NRBC Flagged by Analyzer 0 % (0-5); Neutrophil # 4.34 X10^3/uL (2.7-7.7); Neutrophil % 72.6 % (47-70); Platelet Count 171 K/mm3 (150-450); RBC Distribution Width CV 14.2 % (11.6-14.6); RBC Distribution Width SD 55.5 fl (35.1-43.9); Red Blood Count 2.56 M/mm3 (4.2-5.4)
[2020-07-09 04:26] LABS: Anion Gap 10 (5-15); BUN 48 mg/dL (7-18); BUN/Creat Ratio 16.6 RATIO (10-20); Calcium,Total 9.3 mg/dL (8.5-10.1); Chloride 119 mmol/L (98-107); EST Glomerular Filtration Rate 17 mL/min (>60); Est Glom Filt Rate - Afr Amer 20 mL/min (>60); Estimated Creatinine Clearance 12.85 ml/min; Glucose 118 mg/dL (74-106); Potassium 3.4 mmol/L (3.5-5.1); Sodium Level 145 mmol/L (136-145)
[2020-07-09] MEDS: 0.9% Normal Saline 1,000 ML 100 ML IV (06:17)
[2020-07-09] MEDS: Morphine 2 MG/ML Syringe IV ×3 (06:19→21:22)
[2020-07-09] MEDS: Metoprolol Tartrate 25 MG Tablet PO ×2 (08:34→21:06)
--- NOTE | 2020-07-09 09:27 | CASEMGMT ---
Social Work Note Per roguer questions, pt has completed LW and provided copy to [facility]. Copy found on [facility]. SW printed off document and placed on pt's chart. Admissions question states pt has not completed HCPOA. Renetta Bourgeois BOOKING SUPERVISOR, LEATHER POLISHER
--- NOTE | 2020-07-09 09:45 | CASEMGMT ---
RN CM Face to Face with patient for initial transition planning/care coordination assessment. RN CM introduced self and role at [facility]. Patient lying in bed, alert and oriented. Patient willing to participate in assessment and is able to answer all questions appropriately. Care providers, pharmacy, and demographics verified. Patient wishes to discharge home, denies need for home health at this time. Patient states she has no further needs or concerns at this time. CM to follow for discharge planning needs that may arise. PCP: Mark Specialists: oJse, urologist; Floyd outside machinist helper; rolando Cheng Preferred Pharmacy: [facility] Insurance: [place] MCR Prescription Benefit: yes Living Will/HPOA: none LNOK: sons Living Arrangements: Patient lives with son in split level home with 7 steps and railing to enter the home. Patient states she is independent and able to ambulate stairs. Transportation: self/son DME/HHC: Patient states she has cane and walker at home. Patient denies pervious HHC. Disposition Plan: Patient to discharge home with family support and follow-up plans in place. Renetta GRAMAJO, RN, CM
[2020-07-09] MEDS: 0.9% Saline Lock 10 ML Syringe IV (10:48)
--- NOTE | 2020-07-09 11:25 | PCM.CONS.R ---
Consultation - Renal 07/09/20 PCP/ Referring MD: Requesting physician: [] Primary care physician: Dr. 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 She was admitted on 07/06 for post op pain with nausea, vomiting, gross hematuria. She had hyperkalemia with worsening renal function. Potassium 5.8 with Cr 6.4 on admit improved to creatinine of 2.9 today which is her baseline. She has been doing well without uremic symptoms until this admit. She has a mature AVF that has not been used yet. She continues to have hematuria and is scheduled for surgery today. She continues to require narcotics for abdominal pain, right flank pain. Denies SOB, edema. Urine - Allergies Allergies: Allergies lisinopril Allergy (Verified 07/06/20 10:40) Hives Sulfa (Sulfonamide Antibiotics) Allergy (Verified 07/06/20 10:40) Hives - Current Medications Current Medications: Current Medications Acetaminophen (Acetaminophen 325 Mg Tablet) 650 mg PO Q6H PRN PRN PRN Reason: Pain Score 1-10/Temp > 100.7 F Amiodarone HCl (Amiodarone 200 Mg Tablet) 100 mg PO DAILY [facility] Last Admin: 07/08/20 09:54 Dose: 100 mg Documented by: Aspirin ([facility]in 81 Mg Tab.Chew) [facility] Last Admin: 07/09/20 08:20 Dose: Not Given Documented by: Atorvastatin Calcium (Atorvastatin Calcium 10 Mg Tablet) 10 mg PO DAILY@2200 [facility] Last Admin: 07/08/20 21:12 Dose: 10 mg Documented by: Calcitriol (Calcitriol 0.25 Mcg Capsule) 0.25 mcg PO MOTUWETHFR [facility] Last Admin: 07/06/20 20:44 Dose: Not Given Documented by: Clopidogrel Bisulfate (Clopidogrel Bisulfate 75 Mg Tablet) 75 mg PO DAILY [facility] Last Admin: 07/09/20 08:21 Dose: Not Given Documented by: Ferrous Sulfate (Ferrous Sulfate 325 Mg Tablet) 325 mg PO DAILY@1200 [facility] Last Admin: 07/08/20 12:25 Dose: 325 mg Documented by: Heparin Sodium (Porcine) (Heparin Injection (Vial) 5,000 Unit/Ml Vial) 5,000 unit SC Q8 [facility] Last Admin: 07/09/20 04:55 Dose: Not Given Documented by: Sodium Chloride () 1,000 mls @ 100 mls/hr IV .Q10H [facility] Last Admin: 07/09/20 06:17 Dose: 100 mls/hr Documented by: Piperacillin Sod/Tazobactam (Sod 3.375 gm/ Sodium Chloride) 50 mls @ 12.5 mls/hr IV Q12 [facility] Last Admin: 07/09/20 08:45 Dose: 12.5 mls/hr Documented by: Melatonin (Melatonin 3 Mg Tablet) 3 mg PO QHS PRN PRN PRN Reason: INSOMNIA Last Admin: 07/08/20 23:44 Dose: 3 mg Documented by: Metoprolol Tartrate (Metoprolol Tartrate 25 Mg Tablet) 25 mg PO BID [facility] Last Admin: 07/09/20 08:34 Dose: 25 mg Documented by: Morphine Sulfate (Morphine 2 Mg/Ml Syringe) 2 mg IV Q3H PRN PRN PRN Reason: Pain Score 6-10 Last Admin: 07/09/20 10:48 Dose: 2 mg Documented by: Nutritional Formula (Lactose Free) (Ensure Clear 120 Ml Liquid) 120 ml PO 4X/DAY [facility] Last Admin: 07/09/20 08:20 Dose: Not Given Documented by: Ondansetron HCl (Ondansetron 4 Mg/2 Ml Vial) 4 mg IV Q8H PRN PRN PRN Reason: NAUSEA/VOMITING Last Admin: 07/08/20 16:30 Dose: 4 mg Documented by: Sodium Bicarbonate (Sodium Bicarbonate 650 Mg Tablet) 650 mg PO DAILY [facility] Last Admin: 07/08/20 09:55 Dose: 650 mg Documented by: Sodium Chloride (0.9% Saline Lock 10 Ml Syringe) 10 - 40 ml IV UD PRN PRN Reason: SALINE FLUSH Last Admin: 07/09/20 10:48 Dose: 10 ml Documented by: - Past Medical History Past Medical History (Chronic Problems): Chronic Problems (Last Reviewed 07/07/20 @ 09:[address] 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) Atherosclerosis of coronary artery of [place] heart without angina pectoris (Chronic) Essential (primary) hypertension (Chronic) Stenosis of left carotid artery (Chronic) HLD (hyperlipidemia) (Chronic) - Past Surgical History Surgical History: hysterectomy, - - Social History Smoking Status: Never smoker Alcohol: None Drugs: None - Family History Maternal Family History: Family History (Last Reviewed 01/05/20 @ 09:07 by Michelle Dillon) Mother CVA (cerebral vascular accident) Hypertension Alcoholism Heart disease Father Heart disease History Items: - Review of Systems Constitutional: Reports: Anorexia, Weakness, Fatigue. Denies: Chills, Fever Cardiovascular: Denies: Chest Pain, Edema Respiratory: Denies: Cough, Shortness of Breath Gastrointestinal: Reports: Abdominal Pain - rt quad, Nausea, Vomiting. Denies: Diarrhea Genitourinary: Reports: Hematuria, - - rt flank pain Musculoskeletal: Reports: Back Pain Skin: Denies: Rash Neurological: Reports: - - gen weakness. Denies: Tremor, Seizures Hematologic/ Lymphatic: Reports: Anemia Patient Problems: Active and Suspected Problems (Last Reviewed 07/07/20 @ 09:[address] Simone Garcia MD) Abdominal pain (Acute) Ascites (Acute) Hematuria (Acute) Hyperkalemia (Acute) - Physical Exam Vitals/I&O's: Vital Signs Temp Pulse Resp BP Pulse Ox 98.0 F 78 16 168/79 H 93 07/09/20 08:29 07/09/20 08:34 07/09/20 08:29 07/09/20 08:29 07/09/20 08:29 Oxygen Delivery Method Room Air Weight: 62.59 kg Body Mass Index (BMI) 24.4 Intake and Output for Last 24 Hours 07/07/20 07/08/20 07/09/20 23:59 23:59 23:59 Intake Total 2536.67 / 2536.67 2983.33 / 2983.33 955 / 955 Output Total 1000 / 1000 3500 / 3500 400 / 400 Balance 1536.67 / 1536.67 -516.67 / -516.67 555 / 555 General: Alert, Oriented x3, Cooperative, No apparent distress, - - gen weakness HEENT: PERRLA, EOMI Oral: Dry Mucosa Neck: Supple Lungs: Clear to auscultation Cardiovascular: Murmur, No rub noted Abdomen: Soft, Non-Distended, Hypoactive Bowel Sounds, Tender - rt quad Extremities: No edema, - - AVF left upper arm with good thrill and bruit Musculoskeletal: - - weakness Neurological: Cranial nerves II-XII grossly intact Psych/Mental Status: Normal Affect, Appropriate, Alert and oriented to time, place, person, mood and affect Microbiology Past 72 Hours 07/09/20 08:14 Mucosa - Nasopharyngeal SARS-CoV-2 Antigen (Rapid) - Final 07/06/20 13:31 Urine, Clean Catch Urine Culture - Final Yeast, not Marlys albicans Laboratory Results 07/09/20 03:39: WBC 6.0, RBC 2.56 L, Hgb 8.4 L, Hct 27.0 L, MCV 105.5 H, MCH 32.8 H, MCHC 31.1 L, RDW Std Deviation 55.5 H, RDW Coeff of Lianet 14.2, Plt Count 171, MPV 9.1, Immature Gran % (Auto) 1.000 H, Neut % (Auto) 72.6 H, Lymph % (Auto) 15.9 L, [place] % (Auto) 8.2, Eos % (Auto) 2.0, Baso % (Auto) 0.3, Absolute Neuts (auto) 4.3, Absolute Lymphs (auto) 0.95, Nucleated RBC % 0 07/09/20 03:39: Sodium 145, Potassium 3.4 L, Chloride 119 H, Carbon Dioxide 16.0 L, Anion Gap 10, BUN 48 H, Creatinine 2.90 H, Estim Creat Clear Calc 12.85, Est GFR (MDRD) Af Amer 20 L, Est GFR (MDRD) Non-Af 17 L, BUN/Creatinine Ratio 16.6, Glucose 118 H, Calcium 9.3, TSH 13.00 H Clinical Impression(s) from Imaging Studies Abdomen/Pelvis CT 07/06/20 11:16 IMPRESSION: Bilateral double-J stent catheters. Moderate degree of right hydronephrosis and hydroureter. Mildly distended gallbladder containing gallstones or sludge. Diffuse bladder wall thickening. Ascites. Patchy infiltrate in the right lower lobe with increased markings at the left lung base. Electronically Signed: Christopher Smart MD at 14:29 EST , Service support , Chest X-Ray 07/06/20 15:50 IMPRESSION: New mild elevation of the right diaphragm and multifocal atelectasis at the right lung base. Left lung is expanded and clear. Negative for pneumothorax or substantial pleural effusion. Electronically Signed: Diane Whatley MD at 16:49 EST , Service support , Current Medications Acetaminophen (Acetaminophen 325 Mg Tablet) 650 mg PO Q6H PRN PRN PRN Reason: Pain Score 1-10/Temp > 100.7 F Amiodarone HCl (Amiodarone 200 Mg Tablet) 100 mg PO DAILY [facility] Last Admin: 07/08/20 09:54 Dose: 100 mg Documented by: Aspirin (Aspirin 81 Mg Tab.Chew) [facility] Last Admin: 07/09/20 08:20 Dose: Not Given Documented by: Atorvastatin Calcium (Atorvastatin Calcium 10 Mg Tablet) 10 mg PO DAILY@2200 [facility] Last Admin: 07/08/20 21:12 Dose: 10 mg Documented by: Calcitriol (Calcitriol 0.25 Mcg Capsule) 0.25 mcg PO MOTUWETHFR [facility] Last Admin: 07/06/20 20:44 Dose: Not Given Documented by: Clopidogrel Bisulfate (Clopidogrel Bisulfate 75 Mg Tablet) 75 mg PO DAILY [facility] Last Admin: 07/09/20 08:21 Dose: Not Given Documented by: Ferrous Sulfate (Ferrous Sulfate 325 Mg Tablet) 325 mg PO DAILY@1200 [facility] Last Admin: 07/08/20 12:25 Dose: 325 mg Documented by: Heparin Sodium (Porcine) (Heparin Injection (Vial) 5,000 Unit/Ml Vial) 5,000 unit SC Q8 [facility] Last Admin: 07/09/20 04:55 Dose: Not Given Documented by: Sodium Chloride () 1,000 mls @ 100 mls/hr IV .Q10H [facility] Last Admin: 07/09/20 06:17 Dose: 100 mls/hr Documented by: Piperacillin Sod/Tazobactam (Sod 3.375 gm/ Sodium Chloride) 50 mls @ 12.5 mls/hr IV Q12 [facility] Last Admin: 07/09/20 08:45 Dose: 12.5 mls/hr Documented by: Melatonin (Melatonin 3 Mg Tablet) 3 mg PO QHS PRN PRN PRN Reason: INSOMNIA Last Admin: 07/08/20 23:44 Dose: 3 mg Documented by: Metoprolol Tartrate (Metoprolol Tartrate 25 Mg Tablet) 25 mg PO BID [facility] Last Admin: 07/09/20 08:34 Dose: 25 mg Documented by: Morphine Sulfate (Morphine 2 Mg/Ml Syringe) 2 mg IV Q3H PRN PRN PRN Reason: Pain Score 6-10 Last Admin: 07/09/20 10:48 Dose: 2 mg Documented by: Nutritional Formula (Lactose Free) (Ensure Clear 120 Ml Liquid) 120 ml PO 4X/DAY [facility] Last Admin: 07/09/20 08:20 Dose: Not Given Documented by: Ondansetron HCl (Ondansetron 4 Mg/2 Ml Vial) 4 mg IV Q8H PRN PRN PRN Reason: NAUSEA/VOMITING Last Admin: 07/08/20 16:30 Dose: 4 mg Documented by: Sodium Bicarbonate (Sodium Bicarbonate 650 Mg Tablet) 650 mg PO DAILY [facility] Last Admin: 07/08/20 09:55 Dose: 650 mg Documented by: Sodium Chloride (0.9% Saline Lock 10 Ml Syringe) 10 - 40 ml IV UD PRN PRN Reason: SALINE FLUSH Last Admin: 07/09/20 10:48 Dose: 10 ml Documented by: Assessment/Plan All Active Problems (Last Reviewed 07/07/20 @ 09:[address] Simone Garcia MD) 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 (Acute) Iron refractory iron deficiency anemia (Acute) Abdominal pain (Acute) Ascites (Acute) Hematuria (Acute) Hyperkalemia (Acute) History of coronary artery stent placement (Resolved 10/09/08) Bradycardia (Resolved) Dehydration (Resolved) Hypokalemia (Resolved) UTI (urinary tract infection) (Resolved) 1. 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 Creatinine improved back to baseline. Creatinine 2.9 eGFR 17cc/min today. Acute event from prerenal azotemia, nausea, vomiting since 07/04 improved with iv fluids. AVF left upper arm with good thrill and bruit. Has not started dialysis. Last 24h urine CRCL 13cc/min in November 2019. No need to start dialysis at this time since creatinine continues to improve. Still with nausea, dry heaves, poor appetite likely from narcotics used for rt sided abdominal/flank pain. Continue with iv fluids. Will need to see improvement in oral intake before discharged to home. 2. Obstructive uropathy with gross hematuria following ureteral stent exchange on 07/04, hematuria persists 3. HTN stable 4. Anemia epo 10K today 5. Hyperkalemia resolved 6. Metabolic acidosis continue with bicarb replacement. 7. Post op pain controlled on narcotics
--- NOTE | 2020-07-09 13:10 | PCM.OPRPT ---
Report of Operation Date of Procedure: 07/09/20 Pre-Operative Diagnosis: Malfunctioning right ureteral stent, mispositioned Post-Operative Diagnosis: Same Surgery/Procedure Performed:: Cystoscopy, right retrograde pyelogram, right stent placement. Description of Surgical Findings:: Patient was taken back to the operating room after induction of general anesthesia, the patient was placed in dorsolithotomy position. The urethra and genitals were prepped and draped in usual sterile fashion. Using a 21 [place]ian rigid cystourethroscope the entire length of the urethra was normal then went into the bladder. Identified the trigone the left and right ureteral orifice. I then grabbed the existing stent from the right side and pulled out the meatus. Advanced a wire through the stent. I then cannulated the right orifice and advanced a wire up into the kidney. I then backloaded a 5 [place]ian open ended catheter over the wire and injected contrast to delineate the anatomy. Could see contrast up in the right renal pelvis. After the retrograde was performed I then used fluoroscopic images and guidance to advanced a wire up into the kidney and over the 0.038 glidewire I advanced a 6 [place]ian by 26 cm double pigtail stent. I then pulled the 0.038 Glidewire off and the stent coiled in the kidney bladder good position. The bladder was then drained. We confirmed the position of the stent by fluoroscopy. Patient anesthetic was reversed and was taken back to the PACU in good condition. Type of Anesthesia:: General Drains: stent Right 6 x 26 cm - Admit VTE Documentation VTE Present on Admission: No VTE Mechan Device Prophylaxis: SCD's
[2020-07-09] MEDS: Aspirin 81 MG TAB.CHEW PO (14:23)
[2020-07-09] MEDS: Clopidogrel Bisulfate 75 MG Tablet PO (14:24)
[2020-07-09] MEDS: Heparin Injection (Vial) 5,000 UNIT/ML VIAL 5000 UNIT SC ×2 (14:24→21:06)
[2020-07-09] MEDS: Amiodarone 200 MG Tablet 100 MG PO (14:24)
[2020-07-09] MEDS: Ferrous Sulfate 325 MG Tablet PO (14:24)
[2020-07-09] MEDS: Epoetin Alfa epbx 10,000 UNITS/ML 10000 UNIT SC (14:25)
[2020-07-09] MEDS: Calcitriol 0.25 MCG Capsule PO (14:25)
[2020-07-09] MEDS: Sodium Bicarbonate 650 MG Tablet PO (14:26)
--- NOTE | 2020-07-09 15:41 | PCM.PN.HOSP ---
Patient Problems: Active and Suspected Problems (Last Reviewed 07/07/20 @ 09:[address] Simone Garcia MD) Abdominal pain (Acute) Ascites (Acute) Hematuria (Acute) Hyperkalemia (Acute) Subjective: CAMERON Vitals/I&O's: Vital Signs Temp Pulse Resp BP Pulse Ox 36.6 C 68 16 160/72 H 95 07/09/20 13:56 07/09/20 13:56 07/09/20 13:56 07/09/20 13:56 07/09/20 13:56 Oxygen Delivery Method Room Air Weight: 62.59 kg Body Mass Index (BMI) 24.4 Intake and Output for Last 24 Hours 07/07/20 07/08/20 07/09/20 23:59 23:59 23:59 Intake Total 2536.67 / 2536.67 2983.33 / 2983.33 1005 / 1005 Output Total 1000 / 1000 3500 / 3500 900 / 900 Balance 1536.67 / 1536.67 -516.67 / -516.67 105 / 105 General: Alert, No apparent distress HEENT: Atraumatic, Normocephalic Oral: Moist Mucosa, No Gingival or Mucosal Lesions/ Ulcerations Neck: No Nodes, Thyroid Normal Size and Texture Lungs: Clear to auscultation, Normal air movement, No rhonchi, No wheeze, No rales Cardiovascular: Regular rate, Regular Rhythm, Normal S1, Normal S2, No murmurs Abdomen: Bowel Sounds Present, Soft, Non-Distended, Tender - right sided. Extremities: No edema, No Calf Tenderness Skin: No rashes, No breakdown Psych/Mental Status: Normal Affect, Appropriate Microbiology Past 72 Hours 07/09/20 08:14 Mucosa - Nasopharyngeal SARS-CoV-2 Antigen (Rapid) - Final 07/06/20 13:31 Urine, Clean Catch Urine Culture - Final Yeast, not Marlys albicans Laboratory Results 07/09/20 03:39: WBC 6.0, RBC 2.56 L, Hgb 8.4 L, Hct 27.0 L, MCV 105.5 H, MCH 32.8 H, MCHC 31.1 L, RDW Std Deviation 55.5 H, RDW Coeff of Lianet 14.2, Plt Count 171, MPV 9.1, Immature Gran % (Auto) 1.000 H, Neut % (Auto) 72.6 H, Lymph % (Auto) 15.9 L, [place] % (Auto) 8.2, Eos % (Auto) 2.0, Baso % (Auto) 0.3, Absolute Neuts (auto) 4.3, Absolute Lymphs (auto) 0.95, Nucleated RBC % 0 07/09/20 03:39: Sodium 145, Potassium 3.4 L, Chloride 119 H, Carbon Dioxide 16.0 L, Anion Gap 10, BUN 48 H, Creatinine 2.90 H, Estim Creat Clear Calc 12.85, Est GFR (MDRD) Af Amer 20 L, Est GFR (MDRD) Non-Af 17 L, BUN/Creatinine Ratio 16.6, Glucose 118 H, Calcium 9.3, TSH 13.00 H Current Medications Acetaminophen (Acetaminophen 325 Mg Tablet) 650 mg PO Q6H PRN PRN PRN Reason: Pain Score 1-10/Temp > 100.7 F Amiodarone HCl (Amiodarone 200 Mg Tablet) 100 mg PO DAILY [facility] Last Admin: 07/09/20 14:24 Dose: 100 mg Documented by: Aspirin (Aspirin 81 Mg Tab.Chew) 81 mg PO DAILYCM [facility] Last Admin: 07/09/20 14:23 Dose: 81 mg Documented by: Atorvastatin Calcium (Atorvastatin Calcium 10 Mg Tablet) 10 mg PO DAILY@2200 [facility] Last Admin: 07/08/20 21:12 Dose: 10 mg Documented by: Calcitriol (Calcitriol 0.25 Mcg Capsule) 0.25 mcg PO MOTUWETHFR [facility] Last Admin: 07/09/20 14:25 Dose: 0.25 mcg Documented by: Clopidogrel Bisulfate (Clopidogrel Bisulfate 75 Mg Tablet) 75 mg PO DAILY [facility] Last Admin: 07/09/20 14:24 Dose: 75 mg Documented by: Ferrous Sulfate (Ferrous Sulfate 325 Mg Tablet) 325 mg PO DAILY@1200 [facility] Last Admin: 07/09/20 14:24 Dose: 325 mg Documented by: Heparin Sodium (Porcine) (Heparin Injection (Vial) 5,000 Unit/Ml Vial) 5,000 unit SC Q8 [facility] Last Admin: 07/09/20 14:24 Dose: 5,000 unit Documented by: Sodium Chloride () 1,000 mls @ 100 mls/hr IV .Q10H [facility] Last Admin: 07/09/20 06:17 Dose: 100 mls/hr Documented by: Piperacillin Sod/Tazobactam (Sod 3.375 gm/ Sodium Chloride) 50 mls @ 12.5 mls/hr IV Q12 [facility] Last Infusion: 07/09/20 12:45 Dose: Infused Documented by: Melatonin (Melatonin 3 Mg Tablet) 3 mg PO QHS PRN PRN PRN Reason: INSOMNIA Last Admin: 07/08/20 23:44 Dose: 3 mg Documented by: Metoprolol Tartrate (Metoprolol Tartrate 25 Mg Tablet) 25 mg PO BID [facility] Last Admin: 07/09/20 08:34 Dose: 25 mg Documented by: Morphine Sulfate (Morphine 2 Mg/Ml Syringe) 2 mg IV Q3H PRN PRN PRN Reason: Pain Score 6-10 Last Admin: 07/09/20 10:48 Dose: 2 mg Documented by: Nutritional Formula (Lactose Free) (Ensure Clear 120 Ml Liquid) 120 ml PO 4X/DAY [facility] Last Admin: 07/09/20 14:08 Dose: Not Given Documented by: Ondansetron HCl (Ondansetron 4 Mg/2 Ml Vial) 4 mg IV Q8H PRN PRN PRN Reason: NAUSEA/VOMITING Last Admin: 07/08/20 16:30 Dose: 4 mg Documented by: Sodium Bicarbonate (Sodium Bicarbonate 650 Mg Tablet) 650 mg PO DAILY [facility] Last Admin: 07/09/20 14:26 Dose: 650 mg Documented by: Sodium Chloride (0.9% Saline Lock 10 Ml Syringe) 10 - 40 ml IV UD PRN PRN Reason: SALINE FLUSH Last Admin: 07/09/20 10:48 Dose: 10 ml Documented by: STROKE Vital Signs/Narrative: Vital Signs Temp Pulse Resp BP Pulse Ox 07/09/20 13:56 36.6 C 68 16 160/72 H 95 07/09/20 13:38 36.6 C 71 16 152/68 H 95 07/09/20 13:30 73 16 134/73 H 98 07/09/20 13:20 36.3 C L 78 16 131/62 H 96 Medical Necessity - Tobacco Use Smoking Status: Never smoker Assessment/Plan All Active Problems (Last Reviewed 07/07/20 @ 09:[address] Simone Garcia MD) 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 (Acute) Iron refractory iron deficiency anemia (Acute) Abdominal pain (Acute) Ascites (Acute) Hematuria (Acute) Hyperkalemia (Acute) History of coronary artery stent placement (Resolved 10/09/08) Bradycardia (Resolved) Dehydration (Resolved) Hypokalemia (Resolved) UTI (urinary tract infection) (Resolved) 1. CAMERON: 2/2 obstructive uropathy. improving. Nephrology following. 2. hydronephrosis: 2/2 malpositioned stent on right. 2/ has stent replaced. following. 3. Possible UTI: UCx showing only yeast (likely contaminant), so far. On Pip/tazo 4. VTE prophylaxis: [facility] Inpatient E&M: 61630 Subs Hosp L2
[2020-07-09] MEDS: Ensure Clear 120 ML Liquid PO ×2 (16:21→21:06)
[2020-07-09] MEDS: Atorvastatin Calcium 10 MG Tablet PO (21:06)
[2020-07-10] VITALS (8 sets, daily range): BP systolic 119–161; BP diastolic 54–77; PULSE 68–86; RESP 17–20; TEMP 36.6–36.9; O2SAT 94–99; BMI 24.4
[2020-07-10] MEDS: 0.9% Normal Saline 1,000 ML 100 ML IV (00:12)
[2020-07-10] MEDS: Morphine 2 MG/ML Syringe IV (03:15)
[2020-07-10] MEDS: Heparin Injection (Vial) 5,000 UNIT/ML VIAL 5000 UNIT SC ×3 (06:17→20:33)
[2020-07-10 06:21] LABS: Absolute Lymphocyte Count 1.22 X10^3/uL (0.83-4.51); Absolute Neutrophil Count 12.5 X10^3/uL (2.0-7.7); Basophil# 0.03 X10^3/uL; Basophil% 0.2 % (0-1); Eosinophil# 0.05 X10^3/uL; Eosinophils% 0.3 % (0-5); Hemoglobin 8.6 g/dL (12.0-15.0); Lymphocyte # 1.22 X10^3/ul (4.0); Lymphocyte % 8.2 % (19-41); Mean Corp Hgb Conc 30.7 g/dL (32-36); Mean Corpuscular Hgb 33.2 pg (27.0-32.0); Mean Corpuscular Volume 108.1 fL (81-99); Mean Platelet Vol. 9.3 fl (6.2-12.0); Monocyte# 0.87 X10^3/uL; Monocyte% 5.9 % (0-10); NRBC Flagged by Analyzer 0 % (0-5); Neutrophil # 12.52 X10^3/uL (2.7-7.7); Neutrophil % 84.4 % (47-70); Platelet Count 182 K/mm3 (150-450); RBC Distribution Width CV 14.3 % (11.6-14.6); RBC Distribution Width SD 56.4 fl (35.1-43.9); Red Blood Count 2.59 M/mm3 (4.2-5.4); White Blood Count 14.8 K/mm3 (4.4-11.0)
[2020-07-10 06:52] LABS: Albumin, Serum 1.7 g/dL (3.2-5.0); BUN 46 mg/dL (7-18); BUN/Creat Ratio 14.3 RATIO (10-20); Calcium,Total 8.8 mg/dL (8.5-10.1); Chloride 120 mmol/L (98-107); Creatinine, Serum 3.21 mg/dL (0.55-1.02); EST Glomerular Filtration Rate 15 mL/min (>60); Est Glom Filt Rate - Afr Amer 18 mL/min (>60); Estimated Creatinine Clearance 11.61 ml/min; Glucose 113 mg/dL (74-106); Phosphorus 3.5 mg/dL (2.5-4.9); Potassium 3.4 mmol/L (3.5-5.1); Sodium Level 142 mmol/L (136-145)
[2020-07-10] MEDS: Acetaminophen 325 MG Tablet 650 MG PO (08:47)
[2020-07-10] MEDS: Aspirin 81 MG TAB.CHEW PO (09:57)
--- NOTE | 2020-07-10 10:51 | PCM.PN.REN ---
Patient Problems: Active and Suspected Problems (Last Reviewed 07/07/20 @ 09:[address] Simone Garcia MD) Abdominal pain (Acute) Ascites (Acute) Hematuria (Acute) Hyperkalemia (Acute) Subjective: abdominal pain improved. Hematuria resolved. Tolerating solids. Complains of diarrhea. Potassium low, replaced. - Physical Exam Vitals/I&O's: Vital Signs Temp Pulse Resp BP Pulse Ox 97.9 F 74 18 119/77 98 07/10/20 08:54 07/10/20 08:54 07/10/20 08:54 07/10/20 08:54 07/10/20 08:30 Oxygen Delivery Method Room Air Weight: 62.59 kg Body Mass Index (BMI) 24.4 Intake and Output for Last 24 Hours 07/08/20 07/09/20 07/10/20 23:59 23:59 23:59 Intake Total 2983.33 / 2983.33 2004 / 5 1550 / 1550 Output Total 3500 / 3500 900 / 901 Balance -516.67 / -516.67 1105 / 1304 1549 / 1549 General: Alert, Oriented x3, Cooperative, No apparent distress Lungs: Clear to auscultation Cardiovascular: Regular rate, No rub noted Abdomen: Bowel Sounds Present, Soft, Non Tender Extremities: No edema Musculoskeletal: - - AVF left upper arm +thrill, bruit Neurological: - - no tremor, no asterixis Psych/Mental Status: Normal Affect, Alert and oriented to time, place, person, mood and affect Microbiology Past 72 Hours 07/08/20 11:47 Blood Culture (Wb) - Right Forearm Blood Culture - Preliminary No growth in 48 hours. 07/09/20 08:14 Mucosa - Nasopharyngeal SARS-CoV-2 Antigen (Rapid) - Final 07/06/20 13:31 Urine, Clean Catch Urine Culture - Final Yeast, not Marlys albicans Laboratory Results 07/10/20 06:05: Sodium 142, Potassium 3.4 L, Chloride 120 H, Carbon Dioxide 12.0 L, BUN 46 H, Creatinine 3.21 H, Estim Creat Clear Calc 11.61, Est GFR (MDRD) Af Amer 18 L, Est GFR (MDRD) Non-Af 15 L, BUN/Creatinine Ratio 14.3, Glucose 113 H, Calcium 8.8, Phosphorus 3.5, Albumin 1.7 L 07/10/20 06:05: WBC 14.8 H, RBC 2.59 L, Hgb 8.6 L, Hct 28.0 L, MCV 108.1 H, MCH 33.2 H, MCHC 30.7 L, RDW Std Deviation 56.4 H, RDW Coeff of Lianet 14.3, Plt Count 182, MPV 9.3, Immature Gran % (Auto) 1.000 H, Neut % (Auto) 84.4 H, Lymph % (Auto) 8.2 L, [place] % (Auto) 5.9, Eos % (Auto) 0.3, Baso % (Auto) 0.2, Absolute Neuts (auto) 12.5 H, Absolute Lymphs (auto) 1.22, Nucleated RBC % 0 07/10/20 06:05: Magnesium Pending, Free T4 Pending, Free T3 pg/dL Pending Current Medications Acetaminophen (Acetaminophen 325 Mg Tablet) 650 mg PO Q6H PRN PRN PRN Reason: Pain Score 1-10/Temp > 100.7 F Last Admin: 07/10/20 08:47 Dose: 650 mg Documented by: Amiodarone HCl (Amiodarone 200 Mg Tablet) 100 mg PO DAILY [facility] Last Admin: 07/09/20 14:24 Dose: 100 mg Documented by: Aspirin (Aspirin 81 Mg [facility].Chew) [facility] Last Admin: 07/10/20 09:57 Dose: 81 mg Documented by: Atorvastatin Calcium (Atorvastatin Calcium 10 Mg Tablet) 10 mg PO DAILY@2200 [facility] Last Admin: 07/09/20 21:06 Dose: 10 mg Documented by: Calcitriol (Calcitriol 0.25 Mcg Capsule) 0.25 mcg [facility] Last Admin: 07/09/20 14:25 Dose: 0.25 mcg Documented by: Clopidogrel Bisulfate (Clopidogrel Bisulfate 75 Mg Tablet) 75 mg PO DAILY [facility] Last Admin: 07/09/20 14:24 Dose: 75 mg Documented by: Ferrous Sulfate (Ferrous Sulfate 325 Mg Tablet) 325 mg PO DAILY@1200 [facility] Last Admin: 07/09/20 14:24 Dose: 325 mg Documented by: Heparin Sodium (Porcine) (Heparin Injection (Vial) 5,000 Unit/Ml Vial) 5,000 unit SC Q8 [facility] Last Admin: 07/10/20 06:17 Dose: 5,000 unit Documented by: Piperacillin Sod/Tazobactam (Sod 3.375 gm/ Sodium Chloride) 50 mls @ 12.5 mls/hr IV Q12 [facility] Last Infusion: 07/10/20 01:31 Dose: Infused Documented by: Sodium Bicarbonate 100 meq/ (Dextrose) 1,100 mls @ 100 mls/hr IV .Q11H [facility] Last Admin: 07/10/20 10:12 Dose: 100 mls/hr Documented by: Melatonin (Melatonin 3 Mg Tablet) 3 mg PO QHS PRN PRN PRN Reason: INSOMNIA Last Admin: 07/08/20 23:44 Dose: 3 mg Documented by: Metoprolol Tartrate (Metoprolol Tartrate 25 Mg Tablet) 25 mg PO BID [facility] Last Admin: 07/09/20 21:06 Dose: 25 mg Documented by: Morphine Sulfate (Morphine 2 Mg/Ml Syringe) 2 mg IV Q3H PRN PRN PRN Reason: Pain Score 6-10 Last Admin: 07/10/20 03:15 Dose: 2 mg Documented by: Nutritional Formula (Lactose Free) (Ensure Clear 120 Ml Liquid) 120 ml PO 4X/DAY [facility] Last Admin: 07/09/20 21:06 Dose: 120 ml Documented by: Ondansetron HCl (Ondansetron 4 Mg/2 Ml Vial) 4 mg IV Q8H PRN PRN PRN Reason: NAUSEA/VOMITING Last Admin: 07/08/20 16:30 Dose: 4 mg Documented by: Sodium Bicarbonate (Sodium Bicarbonate 650 Mg Tablet) 650 mg PO DAILY [facility] Last Admin: 07/09/20 14:26 Dose: 650 mg Documented by: Sodium Chloride (0.9% Saline Lock 10 Ml Syringe) 10 - 40 ml IV UD PRN PRN Reason: SALINE FLUSH Last Admin: 07/09/20 10:48 Dose: 10 ml Documented by: Medical Necessity - Tobacco Use Smoking Status: Never smoker Assessment/Plan All Active Problems (Last Reviewed 07/07/20 @ 09:[address] Simone Garcia MD) 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 (Acute) Iron refractory iron deficiency anemia (Acute) Abdominal pain (Acute) Ascites (Acute) Hematuria (Acute) Hyperkalemia (Acute) History of coronary artery stent placement (Resolved 10/09/08) Bradycardia (Resolved) Dehydration (Resolved) Hypokalemia (Resolved) UTI (urinary tract infection) (Resolved) 1. 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 Creatinine stable. Nonoliguric. 2. Obstructive uropathy with gross hematuria resolved s/p ureteral stent replacement 07/04 and 07/09 4. Anemia hgb stable epo 10Kx1 5. Hyperkalemia resolved now with hypoKalemia replacing KCL 6. Metabolic acidosis continue with bicarb replacement. 7. Post op pain improved s/p new stent replacement
[2020-07-10] MEDS: Amiodarone 200 MG Tablet 100 MG PO (10:54)
[2020-07-10] MEDS: Metoprolol Tartrate 25 MG Tablet PO ×2 (10:58→20:34)
[2020-07-10] MEDS: Clopidogrel Bisulfate 75 MG Tablet PO (10:59)
[2020-07-10] MEDS: Calcitriol 0.25 MCG Capsule PO (11:00)
[2020-07-10] MEDS: Sodium Bicarbonate 650 MG Tablet PO (11:01)
[2020-07-10] MEDS: Ferrous Sulfate 325 MG Tablet PO (11:01)
[2020-07-10] MEDS: Ensure Clear 120 ML Liquid PO ×4 (11:02→20:33)
--- NOTE | 2020-07-10 15:14 | PCM.PN.HOSP ---
Patient Problems: Active and Suspected Problems (Last Reviewed 07/07/20 @ 09:[address] Simone Garcia MD) Abdominal pain (Acute) Ascites (Acute) Hematuria (Acute) Hyperkalemia (Acute) Subjective: Abdomen feeling better. Developed watery diarrhea today. Vitals/I&O's: Vital Signs Temp Pulse Resp BP Pulse Ox 36.6 C 68 20 H 137/64 H 98 07/10/20 14:51 07/10/20 14:51 07/10/20 14:51 07/10/20 14:51 07/10/20 08:30 Oxygen Delivery Method Room Air Weight: 62.59 kg Body Mass Index (BMI) 24.4 Intake and Output for Last 24 Hours 07/08/20 07/09/20 07/10/20 23:59 23:59 23:59 Intake Total 2983.33 / 2983.33 2004 Output Total 3500 / 3500 900 / 901 Balance -516.67 / -516.67 1105 / 1304 2018 General: Alert, No apparent distress HEENT: Atraumatic, Normocephalic Oral: Moist Mucosa, No Gingival or Mucosal Lesions/ Ulcerations Neck: No Nodes, Thyroid Normal Size and Texture Lungs: Clear to auscultation, Normal air movement, No rhonchi, No wheeze, No rales Cardiovascular: Regular rate, Regular Rhythm, Normal S1, Normal S2, No murmurs Abdomen: Bowel Sounds Present, Soft, Non Tender, Non-Distended, No Hepato-splenomegaly Extremities: No edema, No Calf Tenderness Psych/Mental Status: Normal Affect, Appropriate Microbiology Past 72 Hours 07/10/20 10:05 Stool C. difficile DNA Amplification - Final 07/08/20 11:47 Blood Culture (Wb) - Right Forearm Blood Culture - Preliminary No growth in 48 hours. 07/09/20 08:14 Mucosa - Nasopharyngeal SARS-CoV-2 Antigen (Rapid) - Final 07/06/20 13:31 Urine, Clean Catch Urine Culture - Final Yeast, not Marlys albicans Laboratory Results 07/10/20 06:05: Sodium 142, Potassium 3.4 L, Chloride 120 H, Carbon Dioxide 12.0 L, BUN 46 H, Creatinine 3.21 H, Estim Creat Clear Calc 11.61, Est GFR (MDRD) Af Amer 18 L, Est GFR (MDRD) Non-Af 15 L, BUN/Creatinine Ratio 14.3, Glucose 113 H, Calcium 8.8, Phosphorus 3.5, Albumin 1.7 L 07/10/20 06:05: WBC 14.8 H, RBC 2.59 L, Hgb 8.6 L, Hct 28.0 L, MCV 108.1 H, MCH 33.2 H, MCHC 30.7 L, RDW Std Deviation 56.4 H, RDW Coeff of Lianet 14.3, Plt Count 182, MPV 9.3, Immature Gran % (Auto) 1.000 H, Neut % (Auto) 84.4 H, Lymph % (Auto) 8.2 L, [place] % (Auto) 5.9, Eos % (Auto) 0.3, Baso % (Auto) 0.2, Absolute Neuts (auto) 12.5 H, Absolute Lymphs (auto) 1.22, Nucleated RBC % 0 07/10/20 06:05: Magnesium Pending, Free T4 Pending, Free T3 pg/dL Pending Current Medications Acetaminophen (Acetaminophen 325 Mg Tablet) 650 mg PO Q6H PRN PRN PRN Reason: Pain Score 1-10/Temp > 100.7 F Last Admin: 07/10/20 08:47 Dose: 650 mg Documented by: Amiodarone HCl (Amiodarone 200 Mg Tablet) 100 mg PO DAILY [facility] Last Admin: 07/10/20 10:54 Dose: 100 mg Documented by: Aspirin ([facility] 81 [facility].Chew) [facility] Last Admin: 07/10/20 09:57 Dose: 81 mg Documented by: Atorvastatin Calcium (Atorvastatin Calcium 10 Mg Tablet) 10 mg PO DAILY@2200 [facility] Last Admin: 07/09/20 21:06 Dose: 10 mg Documented by: Calcitriol (Calcitriol 0.25 Mcg Capsule) 0.25 mcg [facility] Last Admin: 07/10/20 11:00 Dose: 0.25 mcg Documented by: Clopidogrel Bisulfate (Clopidogrel Bisulfate 75 Mg Tablet) 75 mg PO DAILY [facility] Last Admin: 07/10/20 10:59 Dose: 75 mg Documented by: Ferrous Sulfate (Ferrous Sulfate 325 Mg Tablet) 325 mg PO DAILY@1200 [facility] Last Admin: 07/10/20 11:01 Dose: 325 mg Documented by: Heparin Sodium (Porcine) (Heparin Injection (Vial) 5,000 Unit/Ml Vial) 5,000 unit SC Q8 [facility] Last Admin: 07/10/20 14:58 Dose: 5,000 unit Documented by: Piperacillin Sod/Tazobactam (Sod 3.375 gm/ Sodium Chloride) 50 mls @ 12.5 mls/hr IV Q12 [facility] Last Infusion: 07/10/20 14:47 Dose: Infused Documented by: Sodium Bicarbonate 100 meq/ (Dextrose) 1,100 mls @ 100 mls/hr IV .Q11H [facility] Last Admin: 07/10/20 10:12 Dose: 100 mls/hr Documented by: Loperamide HCl (Loperamide 1 Mg/7.5 Ml) 4 mg PO X1 ONE Stop: 07/10/20 15:14 Loperamide HCl (Loperamide 1 Mg/7.5 Ml) 2 mg PO Q4H PRN PRN Reason: DIARRHEA/LOOSE STOOLS Melatonin (Melatonin 3 Mg Tablet) 3 mg PO QHS PRN PRN PRN Reason: INSOMNIA Last Admin: 07/08/20 23:44 Dose: 3 mg Documented by: Metoprolol Tartrate (Metoprolol Tartrate 25 Mg Tablet) 25 mg PO BID [facility] Last Admin: 07/10/20 10:58 Dose: 25 mg Documented by: Morphine Sulfate (Morphine 2 Mg/Ml Syringe) 2 mg IV Q3H PRN PRN PRN Reason: Pain Score 6-10 Last Admin: 07/10/20 03:15 Dose: 2 mg Documented by: Nutritional Formula (Lactose Free) (Ensure Clear 120 Ml Liquid) 120 ml PO 4X/DAY [facility] Last Admin: 07/10/20 14:59 Dose: 120 ml Documented by: Ondansetron HCl (Ondansetron 4 Mg/2 Ml Vial) 4 mg IV Q8H PRN PRN PRN Reason: NAUSEA/VOMITING Last Admin: 07/08/20 16:30 Dose: 4 mg Documented by: Sodium Bicarbonate (Sodium Bicarbonate 650 Mg Tablet) 650 mg PO DAILY [facility] Last Admin: 07/10/20 11:01 Dose: 650 mg Documented by: Sodium Chloride (0.9% Saline Lock 10 Ml Syringe) 10 - 40 ml IV UD PRN PRN Reason: SALINE FLUSH Last Admin: 07/09/20 10:48 Dose: 10 ml Documented by: STROKE Vital Signs/Narrative: Vital Signs Temp Pulse Resp BP 07/10/20 14:51 36.6 C 68 20 H 137/64 H Medical Necessity - Tobacco Use Smoking Status: Never smoker Assessment/Plan All Active Problems (Last Reviewed 07/07/20 @ 09:[address] Simone Garcia MD) 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 (Acute) Iron refractory iron deficiency anemia (Acute) Abdominal pain (Acute) Ascites (Acute) Hematuria (Acute) Hyperkalemia (Acute) History of coronary artery stent placement (Resolved 10/09/08) Bradycardia (Resolved) Dehydration (Resolved) Hypokalemia (Resolved) UTI (urinary tract infection) (Resolved) 1. CAMERON: 2/2 obstructive uropathy. improving. Nephrology following. 2. hydronephrosis: 2/2 malpositioned stent on right. 2/1 has stent replaced. following. 3. Possible UTI: UCx showing only yeast (likely contaminant), so far. On Pip/tazo 4. Diarrhea: likely d/t abx. C. diff negative. Start loperamide. 5. elevated TSH: check FT4 and FT3 6. Hypokalemia: replace. Check mag 7. VTE prophylaxis: SCDs Inpatient E&M: 80509 Subs Hosp L2
[2020-07-10] MEDS: Loperamide 2 MG Capsule 4 MG PO (15:26)
[2020-07-10] MEDS: Loperamide 2 MG Capsule PO (19:09)
[2020-07-10] MEDS: Atorvastatin Calcium 10 MG Tablet PO (20:34)
[2020-07-11] VITALS (7 sets, daily range): BP systolic 126–139; BP diastolic 45–57; PULSE 70–78; RESP 14–18; TEMP 36.5–37.1; O2SAT 96–98
[2020-07-11] MEDS: Acetaminophen 325 MG Tablet 650 MG PO (02:17)
[2020-07-11] MEDS: Loperamide 2 MG Capsule PO ×2 (02:17→09:07)
[2020-07-11] MEDS: Heparin Injection (Vial) 5,000 UNIT/ML VIAL 5000 UNIT SC ×2 (05:52→14:32)
[2020-07-11 06:12] LABS: Absolute Lymphocyte Count 1.36 X10^3/uL (0.83-4.51); Absolute Neutrophil Count 10.8 X10^3/uL (2.0-7.7); Basophil# 0.04 X10^3/uL; Basophil% 0.3 % (0-1); Eosinophil# 0.38 X10^3/uL; Eosinophils% 2.9 % (0-5); Hematocrit 25.9 % (37-47); Hemoglobin 8.2 g/dL (12.0-15.0); Lymphocyte # 1.36 X10^3/ul (4.0); Lymphocyte % 10.2 % (19-41); Mean Corp Hgb Conc 31.7 g/dL (32-36); Mean Corpuscular Hgb 33.3 pg (27.0-32.0); Mean Corpuscular Volume 105.3 fL (81-99); Mean Platelet Vol. 9.2 fl (6.2-12.0); Monocyte# 0.58 X10^3/uL; Monocyte% 4.4 % (0-10); NRBC Flagged by Analyzer 0 % (0-5); Neutrophil # 10.76 X10^3/uL (2.7-7.7); Neutrophil % 80.8 % (47-70); Platelet Count 193 K/mm3 (150-450); RBC Distribution Width CV 13.9 % (11.6-14.6); Red Blood Count 2.46 M/mm3 (4.2-5.4); White Blood Count 13.3 K/mm3 (4.4-11.0)
[2020-07-11 06:54] LABS: Albumin, Serum 1.8 g/dL (3.2-5.0); BUN 43 mg/dL (7-18); BUN/Creat Ratio 13.4 RATIO (10-20); Calcium,Total 8.9 mg/dL (8.5-10.1); Chloride 115 mmol/L (98-107); Creatinine, Serum 3.22 mg/dL (0.55-1.02); EST Glomerular Filtration Rate 15 mL/min (>60); Est Glom Filt Rate - Afr Amer 18 mL/min (>60); Estimated Creatinine Clearance 11.57 ml/min; Free T3 1.2 pg/mL (2.18-3.98); Glucose 111 mg/dL (74-106); Magnesium 1.4 mg/dL (1.6-2.6); Phosphorus 3.3 mg/dL (2.5-4.9); Potassium 3.3 mmol/L (3.5-5.1); Sodium Level 140 mmol/L (136-145); T4 Free Direct 0.75 ng/dL (0.76-1.46)
[2020-07-11] MEDS: Aspirin 81 MG TAB.CHEW PO (08:03)
[2020-07-11] MEDS: Metoprolol Tartrate 25 MG Tablet PO (09:08)
[2020-07-11] MEDS: Clopidogrel Bisulfate 75 MG Tablet PO (09:08)
[2020-07-11] MEDS: Amiodarone 200 MG Tablet 100 MG PO (09:09)
[2020-07-11] MEDS: Calcitriol 0.25 MCG Capsule PO (09:10)
[2020-07-11] MEDS: Sodium Bicarbonate 650 MG Tablet PO (09:10)
[2020-07-11] MEDS: Ensure Clear 120 ML Liquid PO ×2 (09:12→14:32)
[2020-07-11] MEDS: Magnesium Sulfate 4gm/100mL 4 GM/100 ML IV.SOLN. IV (09:49)
--- NOTE | 2020-07-11 10:28 | DCINST_ITS ---
- Discharge Diagnoses Current Active Problems: Current Active and Chronic Problems (Last Reviewed 07/07/20 @ 09:[address] Simone Garcia MD) Abdominal pain (Acute) Ascites (Acute) Hematuria (Acute) Hyperkalemia (Acute) Chronic kidney disease (Chronic) You will use the following diet at home:: No restrictions Your food should be the consistency of: Regular Your liquids should be the consistency of: Regular/Thin Discharge Activity: Return to Normal Activity Call your doctor if you observe: Fever of 101 or Higher, Inability to urinate Allergies/Adverse Reactions: Allergies lisinopril Allergy (Verified 07/06/20 10:40) Hives Sulfa (Sulfonamide Antibiotics) Allergy (Verified 07/06/20 10:40) Hives Medications to take at Discharge Aspirin [Aspirin, Baby] 81 mg PO DAILY 05/01/16 Ferrous Sulfate 325 mg PO DAILY 01/11/19 Acetaminophen [Tylenol Arthritis] 1,300 mg PO BID 04/05/19 Calcitriol [Rocaltrol] 0.25 mcg PO MOTUWETHFR 10/28/19 Sodium Bicarbonate 650 mg PO DAILY 12/15/19 metoprolol tartrate 25 mg tablet 25 mg PO BID #180 tab 03/09/20 clopidogrel 75 mg tablet 75 mg PO DAILY #90 tab 03/29/20 Amiodarone HCl [Pacerone] 100 mg PO DAILY 07/06/20 Atorvastatin Calcium 10 mg PO DAILY 07/06/20 Primary Care Physician: Brett Flores DO [Primary Care Provider] - Within 2 Weeks Test Results: Test results from this visit will be discussed in further detail at your follow- up appointment, if applicable. Please Follow Up With: Ledy Barrientos DO - Nephrology When: 4-6 weeks Please Follow Up With: Simone Garcia MD - Urology When: 1-2 weeks Proposed Discharge Date: 07/11/20
--- NOTE | 2020-07-11 10:31 | DS.PCM_ITS ---
Discharge Date and Diagnosis - Problem List Patient Problems: Active and Suspected Problems (Last Reviewed 07/07/20 @ 09:[address] Simone Garcia MD) Abdominal pain (Acute) Hematuria (Acute) Hyperkalemia (Acute) Date of Admission: 07/06/20 Date of Discharge: 07/11/20 - Primary Discharge Diagnosis Acute Problems: Active Problems (Last Reviewed 07/07/20 @ 09:[address] Simone Garcia MD) 1. CAMERON: 2/2 obstructive uropathy. improving. Nephrology following. 2. hydronephrosis: 2/2 malpositioned stent on right. 2/1 has stent replaced. following. 3. Possible UTI: ruled out. UCx showing only yeast (likely contaminant), so far. Stop antibiotics 4. Diarrhea: likely d/t abx. C. diff negative. Start loperamide. 5. hypothyroidism: elevated TSH, slightly low FT4. Patient also on amiodarone. Follow up as oupt. 6. Hypokalemia: replace. 7. Hypomagnesemia: replace. - Secondary Discharge Diagnosis Chronic Problems: Chronic Problems (Last Reviewed 07/07/20 @ 09:[address] 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 Moderate degree of right hydronephrosis and hydroureter. Mildly distended gallbladder containing gallstones or sludge. Diffuse bladder wall thickening. Ascites. Patchy infiltrate in the right lower lobe with increased markings at the left lung base. Electronically Signed: Christopher Smart MD at 14:29 EST , Service support , Chest X-Ray 07/06/20 15:50 IMPRESSION: New mild elevation of the right diaphragm and multifocal atelectasis at the right lung base. Left lung is expanded and clear. Negative for pneumothorax or substantial pleural effusion. Electronically Signed: Diane Whatley MD at 16:49 EST , Service support , Jose: ORLIN Barrientos: nephrology Operations: - - Cystoscopy, right retrograde pyelogram, right stent placement. Procedures: None Summary of Care Provided: The patient is a 79 year old F with abdominal pain. Patient was found to have moderate degree of right hydronephrosis and hydroureter ureter. Patient had a malpositioned stent in the right ureter. Patient was seen by urology who replaced and I reinserted a new right ureteral stent on the first. Patient did have acute kidney injury, with a creatinine of 6.39 on the . Today it is down to 3.22. Patient was seen by nephrology who did not feel renal replacement therapy was necessary. Concern was for urinary tract infection, however urine culture only showed yeast. Antibiotics will be discontinued. Is likely that patient's issues are all related with the malpositioned stent which has since been fixed no additional antibiotics are necessary at this time. Patient was on Pipracil/tazobactam during her hospitalization. Patient also had some issues regards to some mild electrolyte abnormalities including potassium and magnesium. Those were replaced. Patient also did develop diarrhea. C. difficile was negative. There was felt to be related with the antibiotics. No additional diarrhea work-up is necessary at this time. [] Patient Problems: Active and Suspected Problems (Last Reviewed 07/07/20 @ 09:[address] Simone Garcia MD) Abdominal pain (Acute) Hematuria (Acute) Hyperkalemia (Acute) - Physical Exam Vitals/I&O's: Vital Signs Temp Pulse Resp BP Pulse Ox 36.7 C 78 14 135/54 H 98 07/11/20 08:18 07/11/20 09:08 07/11/20 08:18 07/11/20 08:18 07/11/20 08:18 Oxygen Delivery Method Room Air Weight: 62.59 kg Body Mass Index (BMI) 24.4 Intake and Output for Last 24 Hours 07/09/20 07/10/20 07/11/20 23:59 23:59 23:59 Intake Total 2004 3513.33 / 3513.33 1480 / 1480 Output Total 900 / 901 101 / 101 Balance 1105 / 1304 3412.33 / 3412.33 1480 / 1480 General: Alert, No apparent distress HEENT: Atraumatic, Normocephalic Abdomen: Soft, Non Tender, Non-Distended Microbiology Past 72 Hours 07/10/20 10:05 Stool C. difficile DNA Amplification - Final 07/08/20 11:47 Blood Culture (Wb) - Right Forearm Blood Culture - Pr eliminary No growth in 48 hours. 07/09/20 08:14 Mucosa - Nasopharyngeal SARS-CoV-2 Antigen (Rapid) - Final Laboratory Results 07/11/20 05:55: Anion Gap Cancelled 07/11/20 06:06: Sodium 140, Potassium 3.3 L, Chloride 115 H, Carbon Dioxide 18.0 L, BUN 43 H, Creatinine 3.22 H, Estim Creat Clear Calc 11.57, Est GFR (MDRD) Af Amer 18 L, Est GFR (MDRD) Non-Af 15 L, BUN/Creatinine Ratio 13.4, Glucose 111 H , Calcium 8.9, Phosphorus 3.3, Magnesium 1.4 L, Albumin 1.8 L, Free T4 0.75 L, Free T3 pg/dL 1.2 L 07/11/20 06:06: WBC 13.3 H, RBC 2.46 L, Hgb 8.2 L, Hct 25.9 L, MCV 105.3 H, MCH 33.3 H, MCHC 31.7 L, RDW Std Deviation 53.0 H, RDW Coeff of Lianet 13.9, Plt Count 193, MPV 9.2, Immature Gran % (Auto) 1.400 H, Neut % (Auto) 80.8 H, Lymph % (Auto) 10.2 L, [place] % (Auto) 4.4, Eos % (Auto) 2.9, Baso % (Auto) 0.3, Absolute Neuts (auto) 10.8 H, Absolute Lymphs (auto) 1.36, Nucleated RBC % 0 Current Medications Acetaminophen (Acetaminophen 325 Mg Tablet) 650 mg PO Q6H PRN PRN PRN Reason: Pain Score 1-10/Temp > 100.7 F Last Admin: 07/11/20 02:17 Dose: 650 mg Documented by: Amiodarone HCl (Amiodarone 200 Mg Tablet) 100 mg PO DAILY [facility] Last Admin: 07/11/20 09:09 Dose: 100 mg Documented by: Aspirin (Aspirin 81 Mg Tab.Chew) 81 mg PO DAILYCM [facility] Last Admin: 07/11/20 08:03 Dose: 81 mg Documented by: Atorvastatin Calcium (Atorvastatin Calcium 10 Mg Tablet) 10 mg PO DAILY@2200 [facility] Last Admin: 07/10/20 20:34 Dose: 10 mg Documented by: Calcitriol (Calcitriol 0.25 Mcg Capsule) 0.25 mcg PO MOTUWETHFR [facility] Last Admin: 07/11/20 09:10 Dose: 0.25 mcg Documented by: Clopidogrel Bisulfate (Clopidogrel Bisulfate 75 Mg Tablet) 75 mg PO DAILY [facility] Last Admin: 07/11/20 09:08 Dose: 75 mg Documented by: Ferrous Sulfate (Ferrous Sulfate 325 Mg Tablet) 325 mg PO DAILY@1200 [facility] Last Admin: 07/10/20 11:01 Dose: 325 mg Documented by: Heparin Sodium (Porcine) (Heparin Injection (Vial) 5,000 Unit/Ml Vial) 5,000 unit SC Q8 [facility] Last Admin: 07/11/20 05:52 Dose: 5,000 unit Documented by: Sodium Bicarbonate 100 meq/ (Dextrose) 1,100 mls @ 100 mls/hr IV .Q11H [facility] Last Admin: 07/11/20 07:44 Dose: 100 mls/hr Documented by: Magnesium Sulfate () 4 gm in 100 mls @ 25 mls/hr IV X1 ONE Stop: 07/11/20 11:44 Last Admin: 07/11/20 09:49 Dose: 25 mls/hr Documented by: Loperamide HCl (Loperamide 2 Mg Capsule) 2 mg PO Q4H PRN PRN PRN Reason: DIARRHEA/LOOSE STOOLS Last Admin: 07/11/20 09:07 Dose: 2 mg Documented by: Melatonin (Melatonin 3 Mg Tablet) 3 mg PO QHS PRN PRN PRN Reason: INSOMNIA Last Admin: 07/08/20 23:44 Dose: 3 mg Documented by: Metoprolol Tartrate (Metoprolol Tartrate 25 Mg Tablet) 25 mg PO BID [facility] Last Admin: 07/11/20 09:08 Dose: 25 mg Documented by: Nutritional Formula (Lactose Free) (Ensure Clear 120 Ml Liquid) 120 ml PO 4X/DAY [facility] Last Admin: 07/11/20 09:12 Dose: 120 ml Documented by: Ondansetron HCl (Ondansetron 4 Mg/2 Ml Vial) 4 mg IV Q8H PRN PRN PRN Reason: NAUSEA/VOMITING Last Admin: 07/08/20 16:30 Dose: 4 mg Documented by: Oxycodone HCl (Oxycodone 5 Mg Tablet) 5 mg PO Q6H PRN PRN PRN Reason: Pain Score 6-10 Sodium Bicarbonate (Sodium Bicarbonate 650 Mg Tablet) 650 mg PO DAILY [facility] Last Admin: 07/11/20 09:10 Dose: 650 mg Documented by: Sodium Chloride (0.9% Saline Lock 10 Ml Syringe) 10 - 40 ml IV UD PRN PRN Reason: SALINE FLUSH Last Admin: 07/09/20 10:48 Dose: 10 ml Documented by: Discharge Diet: Low fat/ Low Cholesterol Discharge Activity: Return to Normal Activity Call your doctor if you observe: Fever of 101 or Higher, Inability to urinate Home Medications: Medications to take at Discharge Aspirin [Aspirin, Baby] 81 mg PO DAILY 05/01/16 Ferrous Sulfate 325 mg PO DAILY 01/11/19 Acetaminophen [Tylenol Arthritis] 1,300 mg PO BID 04/05/19 Calcitriol [Rocaltrol] 0.25 mcg PO MOTUWETHFR 10/28/19 Sodium Bicarbonate 650 mg PO DAILY 12/15/19 metoprolol tartrate 25 mg tablet 25 mg PO BID #180 tab 03/09/20 clopidogrel 75 mg tablet 75 mg PO DAILY #90 tab 03/29/20 Amiodarone HCl [Pacerone] 100 mg PO DAILY 07/06/20 Atorvastatin Calcium 10 mg PO DAILY 07/06/20 Loperamide [Imodium] 2 mg PO Q4H PRN PRN capsule 07/11/20 Primary Care Physician: Brett Flores DO [Primary Care Provider] - Within 2 Weeks Please Follow Up With: Ledy Barrientos DO - Nephrology When: 4-6 weeks Please Follow Up With: Simone Garcia MD - Urology When: 1-2 weeks Disposition: Home Minutes spent on discharge:: 32 Patient Condition:: Good Medical Necessity - Tobacco Use Smoking Status: Never smoker Meaningful Use Info Meaningful Use Diagnoses (Choose all that apply): None applicable Inpatient E&M: 60182 Disch Hosp
--- NOTE | 2020-07-11 10:37 | PN.RENAL_ITS ---
Patient Problems: Active and Suspected Problems (Last Reviewed 07/07/20 @ 09:[address] Simone Garcia MD) Abdominal pain (Acute) Hematuria (Acute) Hyperkalemia (Acute) Subjective: less abdominal pain, diarrhea persists but cdiff negative. Tolerating diet. Creatinine slightly elevated today with incomplete urine outputs after harris removed - Physical Exam Vitals/I&O's: Vital Signs Temp Pulse Resp BP Pulse Ox 98.1 F 78 14 135/54 H 98 07/11/20 08:18 07/11/20 09:08 07/11/20 08:18 07/11/20 08:18 07/11/20 08:18 Oxygen Delivery Method Room Air Weight: 62.59 kg Body Mass Index (BMI) 24.4 Intake and Output for Last 24 Hours 07/09/20 07/10/20 07/11/20 23:59 23:59 23:59 Intake Total 2004 / 2204 3513.33 / 3513.33 1480 / 1480 Output Total 900 / 901 101 / 101 Balance 1105 / 1304 3412.33 / 3412.33 1480 / 1480 General: Alert, Oriented x3, Cooperative Lungs: Clear to auscultation Cardiovascular: Regular rate, No rub noted Abdomen: Bowel Sounds Present, Soft, Non Tender Extremities: No edema, - - AVF +thrill/bruit Psych/Mental Status: Normal Affect, Appropriate, Alert and oriented to time, place, person, mood and affect Microbiology Past 72 Hours 07/10/20 10:05 Stool C. difficile DNA Amplification - Final 07/08/20 11:47 Blood Culture (Wb) - Right Forearm Blood Culture - Prelimin doreen No growth in 48 hours. 07/09/20 08:14 Mucosa - Nasopharyngeal SARS-CoV-2 Antigen (Rapid) - Final Laboratory Results 07/11/20 05:55: Anion Gap Cancelled 07/11/20 06:06: Sodium 140, Potassium 3.3 L, Chloride 115 H, Carbon Dioxide 18.0 L, BUN 43 H, Creatinine 3.22 H, Estim Creat Clear Calc 11.57, Est GFR (MDRD) Af Amer 18 L, Est GFR (MDRD) Non-Af 15 L, BUN/Creatinine Ratio 13.4, Glucose 111 H, Calcium 8.9, Phosphorus 3.3, Magnesium 1.4 L, Albumin 1.8 L, Free T4 0.75 L, Free T3 pg/dL 1.2 L 07/11/20 06:06: WBC 13.3 H, RBC 2.46 L, Hgb 8.2 L, Hct 25.9 L, MCV 105.3 H, MCH 33.3 H, MCHC 31.7 L, RDW Std Deviation 53.0 H, RDW Coeff of Lianet 13.9, Plt Count 193, MPV 9.2, Immature Gran % (Auto) 1.400 H, Neut % (Auto) 80.8 H, Lymph % (Auto) 10.2 L, [place] % (Auto) 4.4, Eos % (Auto) 2.9, Baso % (Auto) 0.3, Absolute Neuts (auto) 10.8 H, Absolute Lymphs (auto) 1.36, Nucleated RBC % 0 Current Medications Acetaminophen (Acetaminophen 325 Mg Tablet) 650 mg PO Q6H PRN PRN PRN Reason: Pain Score 1-10/Temp > 100.7 F Last Admin: 07/11/20 02:17 Dose: 650 mg Documented by: Amiodarone HCl (Amiodarone 200 Mg Tablet) 100 mg PO DAILY [facility] Last Admin: 07/11/20 09:09 Dose: 100 mg Documented by: Aspirin ([facility] 81 Mg [facility].Chew) [facility] Last Admin: 07/11/20 08:03 Dose: 81 mg Documented by: Atorvastatin Calcium (Atorvastatin Calcium 10 Mg Tablet) 10 mg PO DAILY@2200 [facility] Last Admin: 07/10/20 20:34 Dose: 10 mg Documented by: Calcitriol (Calcitriol 0.25 Mcg Capsule) [facility]cg [facility] Last Admin: 07/11/20 09:10 Dose: 0.25 mcg Documented by: Clopidogrel Bisulfate (Clopidogrel Bisulfate 75 Mg Tablet) 75 mg PO DAILY [facility] Last Admin: 07/11/20 09:08 Dose: 75 mg Documented by: Ferrous Sulfate (Ferrous Sulfate 325 Mg Tablet) 325 mg PO DAILY@1200 [facility] Last Admin: 07/10/20 11:01 Dose: 325 mg Documented by: Heparin Sodium (Porcine) (Heparin Injection (Vial) 5,000 Unit/Ml Vial) 5,000 unit SC Q8 [facility] Last Admin: 07/11/20 05:52 Dose: 5,000 unit Documented by: Sodium Bicarbonate 100 meq/ (Dextrose) 1,100 mls @ 100 mls/hr IV .Q11H [facility] Last Admin: 07/11/20 07:44 Dose: 100 mls/hr Documented by: Magnesium Sulfate () 4 gm in 100 mls @ 25 mls/hr IV X1 ONE Stop: 07/11/20 11:44 Last Admin: 07/11/20 09:49 Dose: 25 mls/hr Documented by: Loperamide HCl (Loperamide 2 Mg Capsule) 2 mg PO Q4H PRN PRN PRN Reason: DIARRHEA/LOOSE STOOLS Last Admin: 07/11/20 09:07 Dose: 2 mg Documented by: Melatonin (Melatonin 3 Mg Tablet) 3 mg PO QHS PRN PRN PRN Reason: INSOMNIA Last Admin: 07/08/20 23:44 Dose: 3 mg Documented by: Metoprolol Tartrate (Metoprolol Tartrate 25 Mg Tablet) 25 mg PO BID [facility] Last Admin: 07/11/20 09:08 Dose: 25 mg Documented by: Nutritional Formula (Lactose Free) (Ensure Clear 120 Ml Liquid) 120 ml PO 4X/DAY [facility] Last Admin: 07/11/20 09:12 Dose: 120 ml Documented by: Ondansetron HCl (Ondansetron 4 Mg/2 Ml Vial) 4 mg IV Q8H PRN PRN PRN Reason: NAUSEA/VOMITING Last Admin: 07/08/20 16:30 Dose: 4 mg Documented by: Oxycodone HCl (Oxycodone 5 Mg Tablet) 5 mg PO Q6H PRN PRN PRN Reason: Pain Score 6-10 Sodium Bicarbonate (Sodium Bicarbonate 650 Mg Tablet) 650 mg PO DAILY [facility] Last Admin: 07/11/20 09:10 Dose: 650 mg Documented by: Sodium Chloride (0.9% Saline Lock 10 Ml Syringe) 10 - 40 ml IV UD PRN PRN Reason: SALINE FLUSH Last Admin: 07/09/20 10:48 Dose: 10 ml Documented by: Medical Necessity - Tobacco Use Smoking Status: Never smoker Assessment/Plan All Active Problems (Last Reviewed 07/07/20 @ 09:[address] Simone Garcia MD) 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 (Acute) Iron refractory iron deficiency anemia (Acute) Abdominal pain (Acute) Ascites (Ruled-out) Hematuria (Acute) Hyperkalemia (Acute) History of coronary artery stent placement (Resolved 10/09/08) Bradycardia (Resolved) Dehydration (Resolved) Hypokalemia (Resolved) UTI (urinary tract infection) (Resolved) 1. 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 Creatinine slightly elevated with diarrhea. Follow up in office in 1-2 wks 2. Obstructive uropathy with gross hematuria resolved s/p ureteral stent replacement 07/04 and 07/09 4. Anemia hgb stable epo 10Kx1 5. Hyperkalemia resolved now with hypoKalemia replacing KCL 6. Metabolic acidosis continue with bicarb replacement. 7. Post op pain improved s/p new stent replacement
[2020-07-11] MEDS: Ferrous Sulfate 325 MG Tablet PO (11:36)
--- NOTE | 2020-07-11 11:48 | PHA.DC.MR ---
Pharmacy Service has performed discharge medication reconciliation for this patient. The patient's discharge medication list was reviewed for discrepancies and discrepancies were resolved. Home Medications Aspirin [Aspirin, Baby] 81 mg PO DAILY 05/01/16 Ferrous Sulfate 325 mg PO DAILY 01/11/19 Acetaminophen [Tylenol Arthritis] 1,300 mg PO BID 04/05/19 Calcitriol [Rocaltrol] 0.25 mcg PO MOTUWETHFR 10/28/19 Sodium Bicarbonate 650 mg PO DAILY 12/15/19 metoprolol tartrate 25 mg tablet 25 mg PO BID #180 tab 03/09/20 clopidogrel 75 mg tablet 75 mg PO DAILY #90 tab 03/29/20 Amiodarone HCl [Pacerone] 100 mg PO DAILY 07/06/20 Atorvastatin Calcium 10 mg PO DAILY 07/06/20 Loperamide [Imodium] 2 mg PO Q4H PRN PRN cap 07/11/20
== END 2020-07-11 15:10 | disposition home or self-care (01) | DRG 660 ==
LOC: ED 11:10 → MS3 17:51
PROVIDERS: Anesthesiology; Internal Medicine Nephrology; Urology; Admitting Provider Family Medicine; Emergency Provider Emergency Medicine; PCP Family Medicine
PROC: 0T768DZ Dilation of Right Ureter with Intraluminal Device, Via Natural or Artificial Opening Endoscopic (ICD-10-PCS; CPT 52332; principal; 2020-07-09 12:35)
DX: T83.122A Displacement of indwelling ureteral stent, initial encounter (principal); N13.1 Hydronephrosis with ureteral stricture, not elsewhere classified; K52.1 Toxic gastroenteritis and colitis; R18.8 Other ascites; E87.2 Acidosis; N17.9 Acute kidney failure, unspecified; N25.81 Secondary hyperparathyroidism of renal origin; N18.5 Chronic kidney disease, stage 5; E03.9 Hypothyroidism, unspecified; E87.6 Hypokalemia; E83.42 Hypomagnesemia; T36.0X5A Adverse effect of penicillins, initial encounter; I25.10 Atherosclerotic heart disease of native coronary artery without angina pectoris; E78.5 Hyperlipidemia, unspecified; D50.9 Iron deficiency anemia, unspecified; Z79.899 Other long term (current) drug therapy; Z20.822 Contact with and (suspected) exposure to COVID-19; E87.5 Hyperkalemia; Z96.0 Presence of urogenital implants; I48.0 Paroxysmal atrial fibrillation; I73.9 Peripheral vascular disease, unspecified; E86.0 Dehydration; K80.20 Calculus of gallbladder without cholecystitis without obstruction; Z95.5 Presence of coronary angioplasty implant and graft; Z79.52 Long term (current) use of systemic steroids; I10 Essential (primary) hypertension; Y73.8 Miscellaneous gastroenterology and urology devices associated with adverse incidents, not elsewhere classified; D63.1 Anemia in chronic kidney disease
CPT/HCPCS: 36415; 51702; 71045; 74176; 76000; 80048; 80053; 80069; 81001; 83605; 83735; 84439; 84443; 84481; 85025; 85027; 87040; 87086; 87088; 87426; 87493; 93005; 97110; 97116; 97162; 97165; 97530; 97535; 97802; 97803; 99285; C9803; J7030; A4216; C1758; C1769; C2617; J0610; J2405; Q5106

== ENCOUNTER → 2020-07-31 10:30 | Outpatient (CLI) | payer MEDICARE, SELFPAY ==
[2020-07-08 19:58] VITALS: BMI 24.4
[2020-07-31 12:58] LABS: Hemoglobin 10.1 g/dL (12.0-15.0); Mean Corp Hgb Conc 30.6 g/dL (32-36); Mean Corpuscular Hgb 33.2 pg (27.0-32.0); Mean Corpuscular Volume 108.6 fL (81-99); Mean Platelet Vol. 9.3 fl (6.2-12.0); Platelet Count 286 K/mm3 (150-450); RBC Distribution Width CV 13.9 % (11.6-14.6); Red Blood Count 3.04 M/mm3 (4.2-5.4); White Blood Count 9.6 K/mm3 (4.4-11.0)
[2020-07-31 13:14] LABS: Vitamin D,25 Hydroxy 19.2 ng/mL
[2020-07-31 13:18] LABS: Albumin, Serum 3.2 g/dL (3.2-5.0); BUN 39 mg/dL (7-18); BUN/Creat Ratio 12.1 RATIO (10-20); Calcium,Total 9.9 mg/dL (8.5-10.1); Chloride 113 mmol/L (98-107); Creatinine, Serum 3.21 mg/dL (0.55-1.02); EST Glomerular Filtration Rate 15 mL/min (>60); Est Glom Filt Rate - Afr Amer 18 mL/min (>60); Ferritin 353 ng/mL (8-252); Glucose 88 mg/dL (74-106); Iron 39 ug/dL (50-170); Iron Binding Capacity,Total 241 ug/dL (250-450); PERCENT IRON SATURATION 16.2 % (15.0-55.0); Potassium 4.3 mmol/L (3.5-5.1); Sodium Level 142 mmol/L (136-145)
[2020-07-31 13:30] LABS: PTHIN 207.5 pg/mL (18.4-80.1)
== END ==
PROVIDERS: PCP Family Medicine; Visit Provider Internal Medicine Nephrology
DX: N18.5 Chronic kidney disease, stage 5 (principal); N25.81 Secondary hyperparathyroidism of renal origin; D63.1 Anemia in chronic kidney disease; D50.9 Iron deficiency anemia, unspecified
CPT/HCPCS: 36415; 80069; 82306; 82728; 83540; 83550; 83970; 85027

== ENCOUNTER 2020-09-13 11:37 | Outpatient (RCR) | payer MEDICARE, SELFPAY ==
[2020-02-17 13:27] VITALS: BMI 22.1
[2020-07-08 19:58] VITALS: BMI 24.4
[2020-09-13 12:32] LABS: Hematocrit 32.6 % (37-47); Hemoglobin 10.1 g/dL (12.0-15.0); Mean Corpuscular Hgb 32.6 pg (27.0-32.0); Mean Corpuscular Volume 105.2 fL (81-99); Mean Platelet Vol. 9.1 fl (6.2-12.0); Platelet Count 238 K/mm3 (150-450); RBC Distribution Width CV 13.3 % (11.6-14.6); RBC Distribution Width SD 51.6 fl (35.1-43.9); White Blood Count 7.7 K/mm3 (4.4-11.0)
[2020-09-13 13:14] LABS: PTHIN 179.9 pg/mL (18.4-80.1)
[2020-09-13 13:16] LABS: Albumin, Serum 3.3 g/dL (3.2-5.0); BUN 53 mg/dL (7-18); BUN/Creat Ratio 16.2 RATIO (10-20); Calcium,Total 9.6 mg/dL (8.5-10.1); Chloride 114 mmol/L (98-107); Creatinine, Serum 3.28 mg/dL (0.55-1.02); EST Glomerular Filtration Rate 15 mL/min (>60); Est Glom Filt Rate - Afr Amer 18 mL/min (>60); Ferritin 360 ng/mL (8-252); Glucose 94 mg/dL (74-106); Iron 74 ug/dL (50-170); Iron Binding Capacity,Total 323 ug/dL (250-450); PERCENT IRON SATURATION 22.9 % (15.0-55.0); Phosphorus 3.6 mg/dL (2.5-4.9); Potassium 4.1 mmol/L (3.5-5.1); Sodium Level 139 mmol/L (136-145)
== END 2020-09-13 18:00 | disposition home or self-care (01) ==
LOC: LAB 11:37
PROVIDERS: PCP Family Medicine; Visit Provider Internal Medicine Nephrology
DX: D50.9 Iron deficiency anemia, unspecified (principal); N18.5 Chronic kidney disease, stage 5; N25.81 Secondary hyperparathyroidism of renal origin
CPT/HCPCS: 36415; 80069; 82728; 83540; 83550; 83970; 85027

== ENCOUNTER 2020-10-16 05:59 | Day surgery (SDC) | payer MEDICARE, SELFPAY ==
[2020-10-11 14:07] VITALS: BMI 24.4
[2020-10-16] VITALS (7 sets, daily range): BP systolic 159–190; BP diastolic 51–63; PULSE 56–61; RESP 16; TEMP 36.1–36.5; O2SAT 96–100; BMI 23.8
[2020-10-16] MEDS: Lactated Ringers 1,000 ML 100 ML IV (07:03)
[2020-10-16] MEDS: Cefazolin 2 GM in 0.9% Normal Saline 100 ML IV (07:28)
--- NOTE | 2020-10-16 08:54 | PCM.DC ---
Discharge Instructions Diet Discharge Diet: No restrictions Activity Discharge Activity: Return to Normal Activity and May not drive while taking narcotic pain medications. Dressing / Incision Call your doctor if you observe: Fever of 101 or Higher, Inability to urinate, Inability to have a bowel movement, Calf discomfort and Uncontrolled pain Follow Up Care Please Follow Up With: Melissa Rivas MD When: in 1-2 weeks to discuss findings and plan Test Results: Test results from this visit will be discussed in further detail at your follow-up appointment, if applicable. Discharge Plan Admission Primary Reason for Your Visit: bilateral hydronephrosis Attending Provider: Melissa Rivas Primary Care Provider: Brett Flores Discharge Orders/Prescriptions Prescriptions: New cephalexin 250 mg capsule 250 mg PO TID 5 Days Qty: 15 RF: 0 oxycodone-acetaminophen [Percocet] 5-325 mg tablet 1 tab PO Q8H PRN (Reason: pain) 3 Days Qty: 5 RF: 0 Continued aspirin 81 MG tablet,chewable 81 mg PO DAILY RF: 0 ferrous sulfate 325 MG tablet 325 mg PO DAILY RF: 0 acetaminophen 650 MG tablet extended release 1,300 mg PO BID RF: 0 calcitriol 0.25 MCG capsule 0.25 mcg PO MOTUWETHFR RF: 0 sodium bicarbonate 650 MG tablet 650 mg PO DAILY RF: 0 atorvastatin 10 MG tablet 10 mg PO DAILY RF: 0 amiodarone 100 MG tablet 100 mg PO DAILY RF: 0 loperamide 2 MG capsule 2 mg PO Q4H PRN PRN (Reason: DIARRHEA/LOOSE STOOLS) RF: 0 levothyroxine 75 mcg Capsule 75 mcg PO DAILY RF: 0 metoprolol tartrate 25 mg tablet 25 mg PO BID Qty: 180 RF: 3 clopidogrel 75 mg tablet 75 mg PO DAILY Qty: 90 RF: 3 Referrals / Follow Up: Brett Flores DO [Primary Care Provider] - Disposition Disposition (needs filled in before D/C Order can be placed): Home, self care
--- NOTE | 2020-10-16 10:31 | PCM.OPRPT ---
Problems Associated Problem List Diagnoses (1) Hydronephrosis due to obstruction of ureter: Report of Operation Date of Procedure: 10/16/20 Pre-Operative Diagnosis: Bilateral hydronephrosis Post-Operative Diagnosis: Bilateral hydronephrosis secondary to bilateral distal ureteral strictures Surgery/Procedure Performed:: Cystoscopy, bilateral retrograde pyelograms, bilateral ureteral stent change Type of Anesthesia: General Description of Procedure: The patient is a 80-year-old female who has had chronic bilateral ureteral stents since 2017. On chart review, the initial reason for the ureteral obstruction was apparent pelvic organ prolapse with both uterine prolapse and cystocele with J hooking. At that time she was sent for hysterectomy but no bladder repair. She proceeded to undergo chronic ureteral stent changes with occasional urinary tract infection. At some point her diagnosis was changed to ureteral stricture with obstruction. She now presents for reevaluation with bilateral ureteral stent change. Informed consent was obtained. The patient was taken to the operating room and placed on the operating room table. Anesthesia monitored the head, neck, airway, IV access and vital signs throughout the case. Once anesthesia was appropriately administered the patient was placed into dorsal lithotomy position was prepped and draped in usual sterile fashion. The cystoscope was inserted through the urethra under direct visualization. The patient's left ureter was evaluated first. I was unable to pass a wire alongside the indwelling stent likely secondary to stricture. The stent was grasped and pulled into the urethra with graspers. The stent was intubated with a 0.035 Glidewire which was positioned within the renal pelvis on fluoroscopy. At this time a Pollack catheter was passed over the wire and contrast was injected in retrograde fashion after removal of the wire. The Pollick catheter was pulled as distal as possible and a distal ureteral stricture was identified. The wire was reinserted into the Pollick catheter, the Pollack was removed and a 6 x 24 JJ stent was inserted with good curling achieved in the renal pelvis as well as the urinary bladder. The same process was repeated on the patient's right side with the same findings. A 6x26 JJ stent was used on the patient's right side as there were no longer any 24 cm JJ stents in stock. The patient's bladder was then emptied and the case was terminated. She was taken to the recovery room in good condition. There were no complications during this procedure. Grafts/Implants Used: 6 x 24 JJstent on left, 6x26JJ stent on right due to only one 24cm in stock Complications none Admit VTE Documentation VTE Present on Admission: Yes VTE Mechan Device Prophylaxis: SCD's VTE Pharm Prophylaxis ordered?: No Reason prophylaxis not ordered:: Treatment Not Indicated
== END 2020-10-16 10:22 | disposition home or self-care (01) ==
LOC: SDC 06:02 → AC 06:03
PROVIDERS: PCP Family Medicine; Referring Provider Urology; Visit Provider Urology
PROC: 0TJ98ZZ Inspection of Ureter, Via Natural or Artificial Opening Endoscopic (ICD-10-PCS; CPT 52352; principal; 2020-10-16 07:20)
DX: N13.1 Hydronephrosis with ureteral stricture, not elsewhere classified (principal); M19.90 Unspecified osteoarthritis, unspecified site; I12.0 Hypertensive chronic kidney disease with stage 5 chronic kidney disease or end stage renal disease; N18.5 Chronic kidney disease, stage 5; E78.5 Hyperlipidemia, unspecified; I25.10 Atherosclerotic heart disease of native coronary artery without angina pectoris; I48.0 Paroxysmal atrial fibrillation; Z79.899 Other long term (current) drug therapy
CPT/HCPCS: 52005; 52332; 76000; J7120; C2617

== ENCOUNTER 2020-11-01 10:00 | Outpatient (RCR) | payer MEDICARE, SELFPAY ==
[2020-10-16 06:42] VITALS: BMI 23.8
[2020-11-01 11:07] LABS: Hemoglobin 10.4 g/dL (12.0-15.0); Mean Corp Hgb Conc 31.5 g/dL (32-36); Mean Corpuscular Hgb 32.4 pg (27.0-32.0); Mean Corpuscular Volume 102.8 fL (81-99); Mean Platelet Vol. 9.5 fl (6.2-12.0); Platelet Count 240 K/mm3 (150-450); RBC Distribution Width CV 13.6 % (11.6-14.6); RBC Distribution Width SD 51.8 fl (35.1-43.9); Red Blood Count 3.21 M/mm3 (4.2-5.4); White Blood Count 7.4 K/mm3 (4.4-11.0)
[2020-11-01 11:34] LABS: PTHIN 280.3 pg/mL (18.4-80.1)
[2020-11-01 11:45] LABS: Albumin, Serum 3.6 g/dL (3.2-5.0); BUN 48 mg/dL (7-18); BUN/Creat Ratio 15.1 RATIO (10-20); Calcium,Total 9.7 mg/dL (8.5-10.1); Chloride 114 mmol/L (98-107); Creatinine, Serum 3.18 mg/dL (0.55-1.02); EST Glomerular Filtration Rate 15 mL/min (>60); Est Glom Filt Rate - Afr Amer 18 mL/min (>60); Ferritin 369 ng/mL (8-252); Glucose 88 mg/dL (74-106); Iron 55 ug/dL (50-170); Iron Binding Capacity,Total 272 ug/dL (250-450); Phosphorus 3.6 mg/dL (2.5-4.9); Potassium 3.8 mmol/L (3.5-5.1); Sodium Level 141 mmol/L (136-145)
[2020-11-01 12:14] LABS: Vitamin D,25 Hydroxy 21.4 ng/mL
== END 2020-11-01 18:00 | disposition home or self-care (01) ==
LOC: LAB 10:00
PROVIDERS: PCP Family Medicine; Referring Provider Internal Medicine Nephrology; Visit Provider Internal Medicine Nephrology
DX: D50.9 Iron deficiency anemia, unspecified (principal); N18.5 Chronic kidney disease, stage 5; N25.81 Secondary hyperparathyroidism of renal origin
CPT/HCPCS: 36415; 80069; 82306; 82728; 83540; 83550; 83970; 85027

== ENCOUNTER 2020-12-25 10:50 | Outpatient (RCR) | payer MEDICARE, SELFPAY ==
[2020-10-16 06:42] VITALS: BMI 23.8
[2020-12-25 12:02] LABS: Hematocrit 32.9 % (37-47); Hemoglobin 10.7 g/dL (12.0-15.0); Mean Corp Hgb Conc 32.5 g/dL (32-36); Mean Corpuscular Hgb 32.4 pg (27.0-32.0); Mean Corpuscular Volume 99.7 fL (81-99); Mean Platelet Vol. 9.3 fl (6.2-12.0); Platelet Count 276 K/mm3 (150-450); RBC Distribution Width CV 12.8 % (11.6-14.6); White Blood Count 7.8 K/mm3 (4.4-11.0)
[2020-12-25 12:40] LABS: PTHIN 306.1 pg/mL (18.4-80.1)
[2020-12-25 12:44] LABS: Albumin, Serum 3.3 g/dL (3.2-5.0); BUN 72 mg/dL (7-18); BUN/Creat Ratio 17.8 RATIO (10-20); Calcium,Total 9.7 mg/dL (8.5-10.1); Chloride 112 mmol/L (98-107); Creatinine, Serum 4.04 mg/dL (0.55-1.02); EST Glomerular Filtration Rate 11 mL/min (>60); Est Glom Filt Rate - Afr Amer 14 mL/min (>60); Ferritin 469 ng/mL (8-252); Glucose 117 mg/dL (74-106); Iron 66 ug/dL (50-170); Iron Binding Capacity,Total 235 ug/dL (250-450); Phosphorus 4.9 mg/dL (2.5-4.9); Potassium 4.2 mmol/L (3.5-5.1); Sodium Level 140 mmol/L (136-145); Vitamin D,25 Hydroxy 23.6 ng/mL
== END 2020-12-25 18:00 | disposition home or self-care (01) ==
LOC: LAB 10:50
PROVIDERS: PCP Family Medicine; Referring Provider Internal Medicine Nephrology; Visit Provider Internal Medicine Nephrology
DX: N18.5 Chronic kidney disease, stage 5 (principal); N25.81 Secondary hyperparathyroidism of renal origin; D50.9 Iron deficiency anemia, unspecified
CPT/HCPCS: 36415; 80069; 82306; 82728; 83540; 83550; 83970; 85027

== ENCOUNTER 2021-01-14 08:26 | Day surgery (SDC) | payer MEDICARE, SELFPAY ==
[2020-10-16 06:42] VITALS: BMI 23.8
[2021-01-14 09:17] VITALS: BP 172/56; PULSE 55; RESP 16; TEMP 36.6; O2SAT 97; BMI 23.2
[2021-01-14] MEDS: Lactated Ringers 1,000 ML 100 ML IV (09:23)
--- NOTE | 2021-01-14 09:50 | OP.PCM_ITS ---
Problems Associated Problem List Diagnoses (1) Chronic kidney disease, stage 5: (2) Hydronephrosis due to obstruction of ureter: Report of Operation Date of Procedure: 01/14/21 Pre-Operative Diagnosis: Bilateral ureteral obstruction with hydronephrosis, chronic kidney disease Post-Operative Diagnosis: Same Surgery/Procedure Performed:: Cystoscopy with bilateral ureteral stent change Surgeon: Melissa Rivas Type of Anesthesia: MAC Description of Procedure: The patient is a 80-year-old female with chronic ureteral obstruction and chronic indwelling bilateral ureteral stents. She presents for her routine stent change today. Informed consent was obtained. The patient was taken to the operating room and placed on the operating room table. Anesthesia monitored the head, neck, airway, IV access and vital signs throughout the case. Once anesthesia was appropriately ministered the patient was placed into dorsal lithotomy position was prepped and draped in usual sterile fashion. The cystoscope was inserted through the urethra under direct visualization into the urinary bladder. Bilateral ureteral stents were observed. The distal aspect of the left ureteral stent was grasped with grasping forceps and pulled to the urethral meatus. A 0.035 Glidewire was then inserted through the stent into the renal pelvis seen on fluoroscopy. The stent was removed and discarded. A new 6 [place] 24 JJ stent was inserted over the wire after the wire was backloaded through the cystoscope. The stent had good curling visualized in the renal pelvis on fluoroscopy as well as in the bladder on direct visualization. This exact process was then repeated on the patient's right side without difficulty. Both stents were in good position. The patient's bladder was then emptied and the case was terminated. She was awakened and taken to the recovery room in good condition. There were no complications during this procedure. Grafts/Implants Used: 6x24 JJ stent Complications none Admit VTE Documentation VTE Present on Admission: Yes VTE Mechan Device Prophylaxis: SCD's VTE Pharm Prophylaxis ordered?: Yes
--- NOTE | 2021-01-14 09:51 | PCM.DC ---
Discharge Instructions Diet Discharge Diet: No restrictions Activity Discharge Activity: Return to Normal Activity May resume sexual activity in: No Restrictions Dressing / Incision Call your doctor if you observe: Fever of 101 or Higher, Inability to urinate, Inability to have a bowel movement, Calf discomfort and Uncontrolled pain Follow Up Care Please Follow Up With: Melissa Rivas MD When: after renal ultrasound Test Results: Test results from this visit will be discussed in further detail at your follow-up appointment, if applicable. Discharge Plan Admission Attending Provider: Melissa Rivas Primary Care Provider: Brett Flores Discharge Orders/Prescriptions Prescriptions: New oxycodone-acetaminophen [Percocet] 5-325 mg tablet 1 tab PO Q8H PRN (Reason: pain) 4 Days Qty: 6 RF: 0 cephalexin [cephalexin] 500 MG capsule 500 mg PO Q12 3 Days Qty: 6 RF: 0 Continued aspirin 81 MG tablet,chewable 81 mg PO DAILY RF: 0 ferrous sulfate 325 MG tablet 325 mg PO DAILY RF: 0 acetaminophen 650 MG tablet extended release 1,300 mg PO DAILY RF: 0 calcitriol 0.25 MCG capsule 0.25 mcg PO DAILY RF: 0 sodium bicarbonate 650 MG tablet 650 mg PO BID RF: 0 amiodarone 100 MG tablet 100 mg PO DAILY RF: 0 levothyroxine 75 mcg Capsule 75 mcg PO DAILY RF: 0 ascorbic acid (vitamin C) 500 mg Tablet 500 mg PO DAILY RF: 0 metoprolol tartrate 25 mg tablet 25 mg PO BID Qty: 180 RF: 3 clopidogrel 75 mg tablet 75 mg PO DAILY Qty: 90 RF: 3 Referrals / Follow Up: Brett Flores DO [Primary Care Provider] - Disposition Disposition (needs filled in before D/C Order can be placed): Home, Self Care
[2021-01-14] MEDS: Cefazolin 2 GM in 0.9% Normal Saline 100 ML IV (09:54)
[2021-01-14 10:31] VITALS: BP 134/47; BP 172/56; PULSE 55; RESP 16; TEMP 36.1; O2SAT 97
[2021-01-14 10:35] VITALS: BP 142/53; BP 172/56; PULSE 56; RESP 16; O2SAT 97
[2021-01-14 10:39] VITALS: BP 157/55; BP 172/56; PULSE 56; RESP 16; O2SAT 97
[2021-01-14 10:45] VITALS: BP 166/55; BP 172/56; PULSE 55; RESP 16; TEMP 36.2; O2SAT 96
[2021-01-14 11:38] VITALS: BP 165/48; BP 172/56; PULSE 55; RESP 16; TEMP 36.4; O2SAT 100
== END 2021-01-14 11:58 | disposition home or self-care (01) ==
LOC: SDC 08:26 → AC 08:29
PROVIDERS: PCP Family Medicine; Referring Provider Urology; Visit Provider Urology
PROC: (CPT 52332; principal; 2021-01-14 09:45)
DX: N13.1 Hydronephrosis with ureteral stricture, not elsewhere classified (principal); N18.5 Chronic kidney disease, stage 5; I25.10 Atherosclerotic heart disease of native coronary artery without angina pectoris; I12.0 Hypertensive chronic kidney disease with stage 5 chronic kidney disease or end stage renal disease; E78.5 Hyperlipidemia, unspecified; I48.0 Paroxysmal atrial fibrillation; M19.90 Unspecified osteoarthritis, unspecified site; E07.9 Disorder of thyroid, unspecified; Z79.899 Other long term (current) drug therapy
CPT/HCPCS: 00910; 52332; 72170; 76000; J7120; C2617

== ENCOUNTER → 2021-01-18 09:47 | Outpatient (CLI) | payer MEDICARE, SELFPAY ==
[2020-10-16 06:42] VITALS: BMI 23.8
[2021-01-14 09:17] VITALS: BMI 23.2
--- NOTE | 2021-01-18 09:53 | US_ITS ---
STUDY: RENAL ULTRASOUND - COMPLETE REASON FOR EXAM: Female, 80 years old. HYDRONEPHROSIS . Chronic renal disease. Bilateral stents. TECHNIQUE: Ultrasound evaluation of the kidneys was performed with real-time and static garcia-scale imaging. COMPARISON: Comparison is made with prior study dated 09/06/2018. FINDINGS: RIGHT KIDNEY: Normal location of the right kidney, which is normal in size. The right kidney measures 10.3 cm x 5.3 cm x 4.6 cm. There is a normal cortex of the right kidney. The renal cortex measures 1.0 cm. There is no right renal mass or cyst. There are no right renal calculi. There is moderate hydronephrosis of the right kidney. A stent is seen. DISTAL RIGHT URETER: There is non-visualization of the distal right ureter. There is no demonstrated right ureterovesical junction calculus. There is a visualized right ureteral jet. LEFT KIDNEY: Normal location of the left kidney, which is normal in size. The left kidney measures 10.2 cm x 5.6 cm x 5.6 cm. There is a normal cortex of the left kidney. The renal cortex measures 1.2 cm. There is no left renal mass or cyst. There are no left renal calculi. There is moderate hydronephrosis of the left kidney. A ureteral stent is seen. DISTAL LEFT URETER: There is non-visualization of the distal left ureter. There is no demonstrated left ureterovesical junction calculus. There is a visualized left ureteral jet. BLADDER: The distended urinary bladder has a volume of 94.2 ml. US/Kidney and Bladder IMPRESSION: Bilateral ureteral stents. Moderate degree of bilateral hydronephrosis. Electronically Signed: Christopher Smart MD at 15:41 EDT , Service support ,
== END ==
PROVIDERS: PCP Family Medicine; Referring Provider Urology; Visit Provider Urology
DX: N13.2 Hydronephrosis with renal and ureteral calculous obstruction (principal); N17.9 Acute kidney failure, unspecified
CPT/HCPCS: 76770

== ENCOUNTER → 2021-01-30 14:10 | Outpatient (CLI) | payer MEDICARE, SELFPAY ==
--- NOTE | 2021-01-30 14:32 | CT_ITS ---
STUDY: CT ABDOMEN AND PELVIS WITHOUT CONTRAST REASON FOR EXAM: Female, 80 years old. CKD. History of prior ureteral stents. RADIATION DOSAGE (If Supplied By Facility): CTDIvol = ( 5.49 ) mGy, DLP = ( 229.82 ) mGycm TECHNIQUE: Transaxial images were obtained from the dome of the diaphragm to the symphysis pubis without oral contrast, and without intravenous contrast. Sagittal and coronal images were reconstructed. Individualized dose optimization techniques were used for this CT. COMPARISON: Comparison is made with prior examination dated 07/06/2020. FINDINGS: The visualized lung bases are unremarkable. Coronary artery calcification. Mild cardiomegaly. Normal liver. Normal gallbladder and extrahepatic biliary system. Normal spleen. Normal pancreas. Normal bilateral adrenal glands. Moderate to marked degree of bilateral hydronephrosis and hydroureter. Ureteral stents are seen bilaterally with the tip in the renal pelves and distal tips in the urinary bladder. There is moderate cortical atrophy of the left kidney, consistent with chronic medical renal disease. Normal visualized stomach. Normal small intestine. Normal colon. The patient is status post appendectomy. There is diffuse atherosclerotic calcification of the abdominal aorta, without a demonstrated aneurysm. Normal inferior vena cava. Normal retroperitoneum. Mild degree of the diffuse bladder wall thickening. There is absence of the uterus consistent with a prior hysterectomy. Normal abdominal wall. There are diffuse degenerative changes of the visualized lumbar spine. Dextroscoliosis. CT/Abdomen/Pelvis without Cont IMPRESSION: Moderate degree of bilateral hydronephrosis and hydroureter. This is unchanged. Bilateral ureteral stents are seen. Electronically Signed: Christopher Smart MD at 15:37 EDT , Service support ,
[2021-01-30 17:48] LABS: Albumin, Serum 3.7 g/dL (3.2-5.0); BUN 48 mg/dL (7-18); BUN/Creat Ratio 13.6 RATIO (10-20); Calcium,Total 10.2 mg/dL (8.5-10.1); Chloride 108 mmol/L (98-107); Creatinine, Serum 3.54 mg/dL (0.55-1.02); EST Glomerular Filtration Rate 13 mL/min (>60); Est Glom Filt Rate - Afr Amer 16 mL/min (>60); Glucose 129 mg/dL (74-106); Phosphorus 3.9 mg/dL (2.5-4.9); Potassium 4.4 mmol/L (3.5-5.1); Sodium Level 138 mmol/L (136-145)
[2021-01-31 10:02] LABS: PTHIN 168.8 pg/mL (18.4-80.1)
== END ==
PROVIDERS: Internal Medicine Nephrology; PCP Family Medicine; Referring Provider Urology; Visit Provider Urology
DX: N13.2 Hydronephrosis with renal and ureteral calculous obstruction (principal); N18.5 Chronic kidney disease, stage 5; N25.81 Secondary hyperparathyroidism of renal origin; D50.9 Iron deficiency anemia, unspecified
CPT/HCPCS: 36415; 74176; 80069; 83970

== ENCOUNTER → 2021-02-12 14:19 | Outpatient (CLI) | payer MEDICARE, SELFPAY ==
--- NOTE | 2021-02-12 14:30 | US_ITS ---
STUDY: RENAL ULTRASOUND - COMPLETE REASON FOR EXAM: Female, 80 years old. Hydronephrosis, urine Retention, renal FAILURE TECHNIQUE: Ultrasound evaluation of the kidneys was performed with real-time and static garcia-scale imaging. COMPARISON: 01/30/2021 FINDINGS: Aorta: Visualized portions of abdominal aorta are normal in diameter. IVC: Visualized portions appear patent. Right kidney: Measures 8.8 cm. Normal contour. Renal cortical thickness appears normal. No cysts. No masses, stones, or hydronephrosis identified. Partially visualized ureteral stent. Left kidney: Measures 8.4 cm. Normal contour. Renal cortical thickness appears normal. No cysts. No masses, stones, or hydronephrosis identified. Bladder: Decompressed with CASAREZ catheter. US/Kidney and Bladder IMPRESSION: Partially visualized right ureteral stent. No significant hydronephrosis is identified. Electronically Signed: Selvin Rasmussen MD at 17:55 EDT Tel , Service support ,
[2021-02-12 14:59] LABS: Anion Gap 7 (5-15); BUN 49 mg/dL (7-18); BUN/Creat Ratio 13.6 RATIO (10-20); Calcium,Total 9.9 mg/dL (8.5-10.1); Chloride 104 mmol/L (98-107); EST Glomerular Filtration Rate 13 mL/min (>60); Est Glom Filt Rate - Afr Amer 16 mL/min (>60); Glucose 87 mg/dL (74-106); Sodium Level 134 mmol/L (136-145)
== END ==
PROVIDERS: PCP Family Medicine; Referring Provider Urology; Visit Provider Urology
DX: N13.30 Unspecified hydronephrosis (principal); N19 Unspecified kidney failure; R33.9 Retention of urine, unspecified
CPT/HCPCS: 36415; 76770; 80048

== ENCOUNTER → 2021-02-22 10:10 | Outpatient (CLI) | payer MEDICARE, SELFPAY ==
[2020-10-16 06:42] VITALS: BMI 23.8
[2021-02-22 12:06] LABS: Hemoglobin 11.4 g/dL (12.0-15.0); Mean Corp Hgb Conc 31.7 g/dL (32-36); Mean Corpuscular Hgb 32.7 pg (27.0-32.0); Mean Corpuscular Volume 103.2 fL (81-99); Mean Platelet Vol. 9.2 fl (6.2-12.0); Platelet Count 261 K/mm3 (150-450); RBC Distribution Width CV 13.3 % (11.6-14.6); RBC Distribution Width SD 50.8 fl (35.1-43.9); Red Blood Count 3.49 M/mm3 (4.2-5.4); White Blood Count 7.5 K/mm3 (4.4-11.0)
[2021-02-22 12:37] LABS: Albumin, Serum 3.3 g/dL (3.2-5.0); BUN 55 mg/dL (7-18); BUN/Creat Ratio 15.1 RATIO (10-20); Calcium,Total 10.3 mg/dL (8.5-10.1); Chloride 108 mmol/L (98-107); Creatinine, Serum 3.65 mg/dL (0.55-1.02); EST Glomerular Filtration Rate 13 mL/min (>60); Est Glom Filt Rate - Afr Amer 16 mL/min (>60); Glucose 118 mg/dL (74-106); Phosphorus 3.3 mg/dL (2.5-4.9); Potassium 4.1 mmol/L (3.5-5.1); Sodium Level 140 mmol/L (136-145)
[2021-02-22 12:47] LABS: PTHIN 160.3 pg/mL (18.4-80.1)
== END ==
PROVIDERS: PCP Family Medicine; Visit Provider Internal Medicine Nephrology
DX: N18.5 Chronic kidney disease, stage 5 (principal); N25.81 Secondary hyperparathyroidism of renal origin; D50.9 Iron deficiency anemia, unspecified; D63.1 Anemia in chronic kidney disease
CPT/HCPCS: 36415; 80069; 83970; 85027

== ENCOUNTER → 2021-04-30 10:41 | Outpatient (CLI) | payer MEDICARE, SELFPAY ==
[2021-04-30 11:45] LABS: Hematocrit 33.5 % (37-47); Hemoglobin 10.8 g/dL (12.0-15.0); Mean Corp Hgb Conc 32.2 g/dL (32-36); Mean Corpuscular Hgb 33.1 pg (27.0-32.0); Mean Corpuscular Volume 102.8 fL (81-99); Mean Platelet Vol. 9.2 fl (6.2-12.0); Platelet Count 263 K/mm3 (150-450); RBC Distribution Width CV 13.6 % (11.6-14.6); RBC Distribution Width SD 51.5 fl (35.1-43.9); Red Blood Count 3.26 M/mm3 (4.2-5.4)
[2021-04-30 12:16] LABS: PTHIN 301.6 pg/mL (18.4-80.1)
[2021-04-30 12:20] LABS: Albumin, Serum 3.6 g/dL (3.2-5.0); BUN 48 mg/dL (7-18); BUN/Creat Ratio 13.2 RATIO (10-20); Chloride 112 mmol/L (98-107); Creatinine, Serum 3.63 mg/dL (0.55-1.02); EST Glomerular Filtration Rate 13 mL/min (>60); Est Glom Filt Rate - Afr Amer 16 mL/min (>60); Glucose 89 mg/dL (74-106); Phosphorus 3.4 mg/dL (2.5-4.9); Potassium 4.1 mmol/L (3.5-5.1); Sodium Level 141 mmol/L (136-145)
== END ==
PROVIDERS: PCP Family Medicine; Referring Provider Internal Medicine Nephrology; Visit Provider Internal Medicine Nephrology
DX: N18.5 Chronic kidney disease, stage 5 (principal); N25.81 Secondary hyperparathyroidism of renal origin; D50.9 Iron deficiency anemia, unspecified; D63.1 Anemia in chronic kidney disease
CPT/HCPCS: 36415; 80069; 83970; 85027

== ENCOUNTER → 2021-05-24 12:14 | Outpatient (CLI) | payer MEDICARE, SELFPAY | PROVIDERS: PCP Family Medicine; Referring Provider Urology; Visit Provider Urology | DX: N39.0 Urinary tract infection, site not specified (principal) | CPT/HCPCS: 87077; 87086; 87088; 87186 ==

== ENCOUNTER 2021-06-03 08:03 | Day surgery (SDC) | payer MEDICARE, SELFPAY ==
[2021-06-03] VITALS (8 sets, daily range): BP systolic 132–163; BP diastolic 47–58; PULSE 56–71; RESP 16; TEMP 36–36.3; O2SAT 94–97; BMI 25.5
[2021-06-03] MEDS: 0.9% Normal Saline 1,000 ML 15 ML IV (08:35)
--- NOTE | 2021-06-03 09:28 | PCM.DC ---
Discharge Instructions Diet Discharge Diet: No restrictions Activity Discharge Activity: Return to Normal Activity Dressing / Incision Call your doctor if you observe: Fever of 101 or Higher, Inability to urinate, Inability to have a bowel movement and Uncontrolled pain Follow Up Care Please Follow Up With: Melissa Rivas MD When: call office for appt in 3 months Test Results: Test results from this visit will be discussed in further detail at your follow-up appointment, if applicable. Discharge Plan Admission Attending Provider: Melissa Rivas Primary Care Provider: Brett Flores Discharge Orders/Prescriptions Prescriptions: New oxycodone-acetaminophen [Percocet] 5-325 mg tablet 1 tab PO Q8H PRN (Reason: pain) 3 Days Qty: 10 RF: 0 Continued aspirin 81 MG tablet,chewable 81 mg PO DAILY RF: 0 ferrous sulfate 325 MG tablet 325 mg PO BID RF: 0 acetaminophen 650 MG tablet extended release 1,300 mg PO BID RF: 0 calcitriol 0.25 MCG capsule 0.25 mcg PO MOTUWETHFR RF: 0 sodium bicarbonate 650 MG tablet 650 mg PO BID RF: 0 amiodarone 100 MG tablet 100 mg PO DAILY RF: 0 levothyroxine 75 mcg Capsule 75 mcg PO DAILY RF: 0 ascorbic acid (vitamin C) 500 mg Tablet 500 mg PO DAILY RF: 0 metoprolol tartrate 25 mg tablet 25 mg PO BID Qty: 180 RF: 3 clopidogrel 75 mg tablet 75 mg PO DAILY Qty: 90 RF: 3 Referrals / Follow Up: Brett Flores DO [Primary Care Provider] - Disposition Disposition (needs filled in before D/C Order can be placed): Home, Self Care
--- NOTE | 2021-06-03 09:39 | PCM.OPRPT ---
Problems Associated Problem List Diagnoses (1) Hydronephrosis due to obstruction of ureter: Report of Operation Date of Procedure: 06/03/21 Pre-Operative Diagnosis: Bilateral ureteral obstruction with bilateral hydronephrosis Post-Operative Diagnosis: Same Surgery/Procedure Performed:: Cystoscopy, bilateral ureteral stent change Surgeon: Melissa Rivas [place] of Anest[place] [facility] [place] of Procedure: The patient is a 80-year-old female with chronically obstructed bilateral ureters who presents for routine bilateral ureteral stent change. Informed consent was obtained. The patient is on antibiotics for infection. The patient was taken to the operating room and placed on the operating room table. Anesthesia monitored the head, neck, airway, IV access and vital signs throughout the case. Once anesthesia was appropriately ministered the patient was placed into dorsal lithotomy position was prepped and draped in usual sterile fashion. The cystoscope was inserted through the urethra under direct visualization into the urinary bladder. The distal aspect of the right ureteral stent was grasped with grasping forceps and pulled to the urethral meatus. At this time a 0.035 Glidewire was easily inserted through the stent with good positioning in the renal pelvis seen on fluoroscopy. The stent was removed and the wire was backloaded through the cystoscope using the pusher. At this time a new 6 [place] 24 cm JJ stent was inserted over the wire with good positioning in the renal pelvis as well as the urinary bladder. This process was exactly repeated on the patient's left side without complication. At this time the patient's bladder was emptied and the case was terminated. She was awakened and taken to the recovery room in good condition. There were no complications during this procedure. Grafts/Implants Used: 6x24 JJ stents Complications none Admit VTE Documentation VTE Present on Admission: Yes VTE Mechan Device Prophylaxis: SCD's VTE Pharm Prophylaxis ordered?: No Reason prophylaxis not ordered:: Treatment Not Indicated
== END 2021-06-03 11:55 | disposition home or self-care (01) ==
LOC: SDC 08:07 → AC 08:08
PROVIDERS: PCP Family Medicine; Visit Provider Urology
PROC: (CPT 52332; principal; 2021-06-03 09:25)
DX: N13.1 Hydronephrosis with ureteral stricture, not elsewhere classified (principal); E78.5 Hyperlipidemia, unspecified; N18.4 Chronic kidney disease, stage 4 (severe); I25.10 Atherosclerotic heart disease of native coronary artery without angina pectoris; I12.9 Hypertensive chronic kidney disease with stage 1 through stage 4 chronic kidney disease, or unspecified chronic kidney disease; I48.0 Paroxysmal atrial fibrillation; Z79.899 Other long term (current) drug therapy; Z79.890 Hormone replacement therapy; Z79.82 Long term (current) use of aspirin; Z79.02 Long term (current) use of antithrombotics/antiplatelets
CPT/HCPCS: 00910; 52332; 76000; J7030; C1769; C2617

== ENCOUNTER 2021-07-09 11:42 | Outpatient (CLI) | payer MEDICARE, SELFPAY ==
[2021-07-09 13:13] LABS: Hematocrit 31.6 % (37-47); Hemoglobin 10.1 g/dL (12.0-15.0); Mean Platelet Vol. 9.4 fl (6.2-12.0); Platelet Count 242 K/mm3 (150-450); RBC Distribution Width SD 50.9 fl (35.1-43.9); Red Blood Count 3.16 M/mm3 (4.2-5.4); White Blood Count 8.4 K/mm3 (4.4-11.0)
[2021-07-09 13:32] LABS: PTHIN 275.2 pg/mL (18.4-80.1)
[2021-07-09 13:51] LABS: Albumin, Serum 3.6 g/dL (3.2-5.0); BUN 54 mg/dL (7-18); BUN/Creat Ratio 13.4 RATIO (10-20); Chloride 112 mmol/L (98-107); Creatinine, Serum 4.02 mg/dL (0.55-1.02); EST Glomerular Filtration Rate 11 mL/min (>60); Est Glom Filt Rate - Afr Amer 14 mL/min (>60); Ferritin 585 ng/mL (8-252); Glucose 88 mg/dL (74-106); Iron 31 ug/dL (50-170); Iron Binding Capacity,Total 258 ug/dL (250-450); Phosphorus 3.8 mg/dL (2.5-4.9); Potassium 4.6 mmol/L (3.5-5.1); Sodium Level 139 mmol/L (136-145)
== END 2021-07-09 23:59 | disposition short-term general hospital (02) ==
LOC: LAB 11:44
PROVIDERS: PCP Family Medicine; Referring Provider Internal Medicine Nephrology; Visit Provider Internal Medicine Nephrology
DX: N18.5 Chronic kidney disease, stage 5 (principal); N25.81 Secondary hyperparathyroidism of renal origin; D50.9 Iron deficiency anemia, unspecified
CPT/HCPCS: 36415; 80069; 82728; 83540; 83550; 83970; 85027

== ENCOUNTER 2021-08-11 10:15 | Inpatient (IN) | payer MEDICARE, SELFPAY ==
[2021-08-11] VITALS (7 sets, daily range): BP systolic 120–152; BP diastolic 45–90; PULSE 63–96; RESP 16–18; TEMP 36.1–37.3; O2SAT 95–98; BMI 23.7
--- NOTE | 2021-08-11 10:47 | EDS_ITS ---
HPI HPI - GI History of Present Illness Chief Complaint: Nausea/Vomiting Informant: patient Nausea/Vomiting/Emesis GI Symptom: Positive for Nausea and Vomiting Onset: Weeks (1.5) Quality: Positive for Nonbilious; Negative for Blood streaks, Coffee ground and Hematemesis Diarrhea/Melena/Hematochezia GI Symptom: Negative for Diarrhea, Melena and Hematochezia Associated Symptoms Associated Symptoms: Negative for Dysuria, Frequency and Hematuria Narrative Narrative: Patient presents with nausea and vomiting that has been getting worse over the past week and a half. Patient states that she has been unable to keep anything down. Patient admits to a fever of 102.9 at home today. Patient admits to some increasing fatigue. Patient admits to decreased appetite. Patient denies any abdominal pain. Patient denies any diarrhea, melena, or hematochezia. Patient denies any urinary complaints. [facility] Medical History Acute pyelonephritis Ambulates with cane Anemia Arthritis Atherosclerosis of coronary artery of [place] heart without angina pectoris Atrial fibrillation Coronary artery disease Easy bruising Edema Essential (primary) hypertension Heart disease History of renal dialysis HLD (hyperlipidemia) Hx of echocardiogram (~2015) Hydronephrosis due to obstruction of ureter Hyperparathyroidism due to renal insufficiency Hypertension Hypothyroidism Iron deficiency anemia Irregular heart beat Kidney disease Normochromic normocytic anemia Obstructive nephropathy Osteoarthritis Paroxysmal atrial fibrillation Post-menopausal Sepsis Stenosis of left carotid artery Thyroid disease Urinary tract infection Vitamin deficiency Wears glasses Home Medications aspirin 81 mg PO DAILY 05/01/16 [History Last Taken 01/10/21 07:00] ferrous sulfate 325 mg PO BID 01/11/19 [History Last Taken 07/06/20 05:00] acetaminophen 1,300 mg PO BID 04/05/19 [History Last Taken 07/06/20 05:00] calcitriol 0.25 mcg PO MOTUWETHFR 10/28/19 [History Last Taken 07/06/20 05:00] sodium bicarbonate 650 mg PO BID 12/15/19 [History Last Taken 07/06/20 05:00] amiodarone 100 mg PO DAILY 07/06/20 [History Last Taken 06/03/21] levothyroxine 75 mcg PO DAILY 10/09/20 [History Last Taken 06/03/21] ascorbic acid (vitamin C) 500 mg PO DAILY 01/08/21 [History Last Taken Unknown] metoprolol tartrate 25 mg tablet 25 mg PO BID #180 tab 02/12/21 [Rx Last Taken 06/03/21] clopidogrel 75 mg tablet 75 mg PO DAILY #90 tab 03/25/21 [Rx Last Taken Unknown] oxycodone-acetaminophen [Percocet] 1 tab PO Q8H PRN 3 Days #10 tab 06/03/21 [Rx Last Taken Unknown] Allergy/AdvReac Type Severity Reaction Status Date / Time lisinopril Allergy Hives Verified 08/11/21 10:18 Sulfa (Sulfonamide Allergy Hives Verified 08/11/21 10:18 Antibiotics) Family History Mother CVA (cerebral vascular accident) Hypertension Alcoholism Heart disease Father Heart disease Surgical History history Left brachial AV fistula creation (~04/11/19) History of coronary artery stent placement (10/09/08) History of left-sided carotid endarterectomy History of total abdominal hysterectomy and bilateral salpingo-oophorectomy History of ureter stent Hx of appendectomy Hx of bilateral cataract extraction Hx of cataract surgery Hx of cystoscopy Hx of hysterectomy (~2016) Social History Smoking Status: Never smoker alcohol intake: never substance use type: does not use ROS ROS ED Constitutional Constitutional ED: Reports fever(s); Denies chills Eyes Eyes: Denies blurry vision or change in vision ENT ENT ED: Denies rhinorrhea or sore throat Cardiovascular Cardiovascular: Denies chest pain or palpitations Respiratory/Chest Respiratory/Chest: Denies cough or dyspnea Gastrointestinal Gastrointestinal: Reports nausea and vomiting; Denies abdominal pain, diarrhea or melena Genitourinary Genitourinary ED: Denies dysuria or hematuria Musculoskeletal Musculoskeletal: Denies back pain or neck pain Integumentary Denies abscess or rash Neurologic Neurologic: Denies headache(s) or weakness Allergic/Immunologic Allergic/Immunologic ED: Denies mouth swelling or urticaria EXAM Physical Exam Const Vital Signs: 08/11/21 10:16 08/11/21 13:56 Temperature 99 F 97.0 F L Temperature Source Temporal Temporal Pulse Rate 96 63 Respiratory Rate 18 16 Blood Pressure 120/52 L 120/45 L Blood Pressure Mean 74 70 Pulse Ox 96 98 Oxygen Delivery Method Room Air Room Air Positive well nourished and well developed General Appearance ED: well developed and NAD HEENT normocephalic and atraumatic Neck supple and no JVD Resp normal respiratory effort and clear to auscultation bilaterally Cardio regular rate and regular rhythm GI normal to inspection, nondistended, normoactive bowel sounds and non-distended Auscultation: normoactive bowel sounds Palpation: soft and tender epigastric and RUQ Extremity normal to inspection General Extremety ED: Negative for edema or tenderness General Extremity: Negative for edema Neuro oriented x3, CN's II-XII intact bilaterally and no sensory deficits noted Sensorium / Orientation: alert Motor Exam: strength 5/5 throughout Psych mental status grossly normal Skin no rashes or lesions noted MDM MDM MDM Narrative Medical decision making narrative: Patient was given IV fluids and Zofran. CBC shows a leukocytosis of 16.8. Comprehensive metabolic profile shows an elevated BUN and creatinine of 56 and 4.12. These are consistent with prior results. Lipase was normal. Urinalysis shows leukocyte esterase of 500 with greater than 100 white blood cells and 10-25 red blood cells. There are positive nitrites. Urine culture was ordered. Patient was started on Rocephin. CT scan of the abdomen and pelvis was obtained. There is bilateral hydronephrosis with urinary stents in place. There is no other acute abnormality noted. This was interpreted by the radiologist and reviewed by myself. Case was discussed with Dr. Rivas. She would like to replace the stents tomorrow. She would like to be placed on consult. Case was discussed with the hospitalist. He recommended giving the patient Zosyn. This was ordered. He will admit the patient to his service. Patient and family understood and were agreeable with the plan. All questions were answered. Lab Data Attestation: I reviewed the patient's lab results. Labs: Laboratory Results - last 24 hr 08/11/21 08/11/21 08/11/21 10:30 10:30 11:35 WBC 16.8 H RBC 3.00 L Hgb 10.1 L Hct 28.2 L MCV 94.0 MCH 33.7 H MCHC 35.8 RDW Std Deviation 47.9 H RDW Coeff of Lianet 14.2 Plt Count 307 MPV 9.3 Immature Gran % (Auto) 1.000 H Neut % (Auto) 86.3 H Lymph % (Auto) 5.1 L Is[place] % (Auto) 7.3 Eos % (Auto) 0.1 Baso % (Auto) 0.2 Absolute Neuts (auto) 14.5 H Absolute Lymphs (auto) 0.86 Nucleated RBC % 0 Sodium 134 L Potassium 4.5 Chloride 105 Carbon Dioxide 22.0 Anion Gap 7 BUN 56 H Creatinine 4.12 H Estim Creat Clear Calc 9.31 Est GFR (MDRD) Af Amer 13 L Est GFR (MDRD) Non-Af 11 L BUN/Creatinine Ratio 13.6 Glucose 117 H Calcium 10.1 Total Bilirubin 0.50 AST 15 ALT 28 Alkaline Phosphatase 134 H Total Protein 6.4 Albumin 2.8 L Globulin 3.6 Albumin/Globulin Ratio 0.8 L Lipase 74 Urine Color Yellow Urine Clarity Cloudy Urine pH 7.0 Ur Specific [place] 1.010 Urine Protein 100 H Urine Glucose (UA) Normal Urine Ketones Negative Urine Occult Blood 250 H Urine Nitrite Positive H Urine Bilirubin Negative Urine Urobilinogen Normal Ur Leukocyte Esterase 500 H Urine RBC 10-25 SEEN Urine WBC >100 SEEN Ur Squamous Epith Cells 0-5 SEEN Urine Bacteria 3+ Urine Mucus 0 SEEN Radiography Diagnostic Testing: Clinical Impression(s) from Imaging Studies Abdomen CT 08/11/21 10:51 IMPRESSION: Severe bilateral hydronephrosis and ureteral dilatation despite the presence of bilateral ureteral stents. Electronically Signed: Blake Lake MD at 13:06 EST , Treatment and Re-Evaluation Vital Sign Attestation:: Vital signs were reviewed prior to admission. They are stable. Discharge Plan Dx/Rx/DC Orders Clinical Impression: Urinary tract infection, Leukocytosis, Hydronephrosis Disposition Disposition: Acute Care Hospital [facility] Discharge Date/Time: 08/11/21 14:57
--- NOTE | 2021-08-11 10:51 | CT_ITS ---
STUDY: CT ABDOMEN AND PELVIS WITHOUT CONTRAST REASON FOR EXAM: Female, 80 years old. Abdominal pain RADIATION DOSAGE (If Supplied By Facility): CTDIvol = ( 6.07 ) mGy, DLP = ( 289.57 ) mGycm TECHNIQUE: Transaxial images were obtained from the dome of the diaphragm to the symphysis pubis without oral contrast, and without intravenous contrast. Sagittal and coronal images were reconstructed. Individualized dose optimization techniques were used for this CT. COMPARISON: 01/30/2021 FINDINGS: The visualized lung bases are unremarkable. The visualized portions of the heart are within normal limits. Normal liver. Normal gallbladder and extrahepatic biliary system. Normal spleen. Normal pancreas. Normal bilateral adrenal glands. Bilateral ureteral stents. Bilateral severe hydronephrosis and ureteral dilatation but no ureteral stone. Normal left kidney. Normal visualized stomach. Normal small intestine. Normal colon. The appendix is visualized and appears normal. Normal abdominal aorta. Normal inferior vena cava. Normal retroperitoneum. Normal urinary bladder. Normal abdominal wall. Moderate dextroscoliosis of the lumbar spine with degenerative disc disease. CT/Abdomen/Pel W ORAL Cont Only IMPRESSION: Severe bilateral hydronephrosis and ureteral dilatation despite the presence of bilateral ureteral stents. Electronically Signed: Blake Lake MD at 13:06 EST ,
[2021-08-11 10:58] LABS: Absolute Lymphocyte Count 0.86 X10^3/uL (0.83-4.51); Absolute Neutrophil Count 14.5 X10^3/uL (2.0-7.7); Basophil# 0.04 X10^3/uL; Basophil% 0.2 % (0-1); Eosinophil# 0.01 X10^3/uL; Eosinophils% 0.1 % (0-5); Hematocrit 28.2 % (37-47); Hemoglobin 10.1 g/dL (12.0-15.0); Lymphocyte # 0.86 X10^3/ul (0.83-4.51); Lymphocyte % 5.1 % (19-41); Mean Corp Hgb Conc 35.8 g/dL (32-36); Mean Corpuscular Hgb 33.7 pg (27.0-32.0); Mean Platelet Vol. 9.3 fl (6.2-12.0); Monocyte# 1.23 X10^3/uL; Monocyte% 7.3 % (0-10); NRBC Flagged by Analyzer 0 % (0-5); Neutrophil # 14.46 X10^3/uL (2.7-7.7); Neutrophil % 86.3 % (47-70); Platelet Count 307 K/mm3 (150-450); RBC Distribution Width CV 14.2 % (11.6-14.6); RBC Distribution Width SD 47.9 fl (35.1-43.9); White Blood Count 16.8 K/mm3 (4.4-11.0)
[2021-08-11] MEDS: Ondansetron 4 MG/2 ML Vial IV ×2 (11:02→19:54)
[2021-08-11] MEDS: 0.9% Normal Saline 1,000 ML 1000 ML IV (11:02)
[2021-08-11 11:17] LABS: ALB/GLOB Ratio 0.8 RATIO (0.9-2.4); AST(SGOT) 15 U/L (15-37); Alanine Aminotransfer ALT/SGPT 28 U/L (13-56); Albumin, Serum 2.8 g/dL (3.2-5.0); Alkaline Phosphatase 134 U/L (45-117); Anion Gap 7 (5-15); BUN 56 mg/dL (7-18); BUN/Creat Ratio 13.6 RATIO (10-20); Calcium,Total 10.1 mg/dL (8.5-10.1); Chloride 105 mmol/L (98-107); Creatinine, Serum 4.12 mg/dL (0.55-1.02); EST Glomerular Filtration Rate 11 mL/min (>60); Est Glom Filt Rate - Afr Amer 13 mL/min (>60); Estimated Creatinine Clearance 9.31 ml/min; Globulin 3.6 g/dL (2.2-4.2); Glucose 117 mg/dL (74-106); Lipase 74 U/L (73-393); Potassium 4.5 mmol/L (3.5-5.1); Protein, Total 6.4 g/dL (6.4-8.2); Sodium Level 134 mmol/L (136-145)
[2021-08-11 11:44] LABS: Mucous, Urine 0 SEEN /hpf (<or=2+)
[2021-08-11 11:51] LABS: Color, Urine Yellow (Yellow); Glucose, Dipstick Normal (Normal); Ketone-Dipstick Negative (Negative); Leukocyte Esterase-Dipstick 500 /ul (Negative); Nitrite-Dipstick Positive (Negative); Occult Blood-Urine 250 /ul (Negative); Protein-Dipstick 100 mg/dl (Negative); Urine Bilirubin Dipstick Negative (Negative); Urine Clarity Cloudy (Clear); Urine Urobilinogen Normal (Normal)
[2021-08-11 11:59] LABS: White Blood Cells >100 SEEN /hpf (0-5)
[2021-08-11 12:00] LABS: Bacteria 3+ /hpf (None Seen); Red Blood Cells-Urine 10-25 SEEN /hpf (0-5)
[2021-08-11 12:01] LABS: Squamous Epithelial Cells - UA 0-5 SEEN /hpf (5-10)
[2021-08-11] MEDS: Ceftriaxone 1 GM/50 ML BAG IV (12:44)
--- NOTE | 2021-08-11 14:04 | NURSING ---
MED SURG TERELETSKY UTI, LEUKOCYTOSIS, HYPRONEPHROSIS
--- NOTE | 2021-08-11 14:19 | HP.PCM.HOS_ITS ---
Documented by User: Rafa LEUMS 08/11/21 14:43 HPI - General General Date of Admission: 08/11/21 HPI Narrative ERNESTO KATZ is a 80-year-old female who presents to the ED at [facility] on 08/11/2021 with a chief complaint of fatigue. Patient reports that for the past 10 days she has been experiencing progressively more fatigue and has been sleeping more than usual, which is consistent with her when she has a urinary tract infection. Patient endorses sleeping sometimes 20 hours/day. Patient also reports subjective fevers, chills and nausea and vomiting, but denies diarrhea. Patient denies any urinary frequency, incontinence, pain or flank pain. Patient does have a past medical history of multiple UTIs and presence of ureteral stents. Patient is known to Dr. Rivas. Vital signs in the ED are stable and patient has been afebrile. CBC does show an elevated white count at 16,000, hemoglobin at 10.1 and platelets at 307,000. BMP shows sodium at 134, all other electrolytes within normal limits. BUN elevated at 56 with a creatinine of 4.1. UA significant for yellow cloudy urine, with positive nitrites, 500 leukocyte esterase, greater than 100 urine WBCs and 3+ bacteria. CT of the abdomen demonstrates severe bilateral hydronephrosis and ureteral dilatation. [facility] Medical History Acute pyelonephritis Ambulates with cane Anemia Arthritis Atherosclerosis of coronary artery of [place] heart without angina pectoris Atrial fibrillation Coronary artery disease Easy bruising Edema Essential (primary) hypertension Heart disease History of renal dialysis HLD (hyperlipidemia) Hx of echocardiogram (~2015) Hydronephrosis due to obstruction of ureter Hyperparathyroidism due to renal insufficiency Hypertension Hypothyroidism Iron deficiency anemia Irregular heart beat Kidney disease Normochromic normocytic anemia Obstructive nephropathy Osteoarthritis Paroxysmal atrial fibrillation Post-menopausal Sepsis Stenosis of left carotid artery Thyroid disease Urinary tract infection Vitamin deficiency Wears glasses Home Medications aspirin 81 mg PO DAILY 05/01/16 [History Last Taken 01/10/21 07:00] ferrous sulfate 325 mg PO BID 01/11/19 [History Last Taken 07/06/20 05:00] acetaminophen 1,300 mg PO BID 04/05/19 [History Last Taken 07/06/20 05:00] calcitriol 0.25 mcg PO MOTUWETHFR 10/28/19 [History Last Taken 07/06/20 05:00] sodium bicarbonate 650 mg PO BID 12/15/19 [History Last Taken 07/06/20 05:00] amiodarone 100 mg PO DAILY 07/06/20 [History Last Taken 06/03/21] levothyroxine 75 mcg PO DAILY 10/09/20 [History Last Taken 06/03/21] ascorbic acid (vitamin C) 500 mg PO DAILY 01/08/21 [History Last Taken Unknown] metoprolol tartrate 25 mg tablet 25 mg PO BID #180 tab 02/12/21 [Rx Last Taken 06/03/21] clopidogrel 75 mg tablet 75 mg PO DAILY #90 tab 03/25/21 [Rx Last Taken Unknown] oxycodone-acetaminophen [Percocet] 1 tab PO Q8H PRN 3 Days #10 tab 06/03/21 [Rx Last Taken Unknown] Allergy/AdvReac Type Severity Reaction Status Date / Time lisinopril Allergy Hives Verified 08/11/21 10:18 Sulfa (Sulfonamide Allergy Hives Verified 08/11/21 10:18 Antibiotics) Family History Mother CVA (cerebral vascular accident) Hypertension Alcoholism Heart disease Father Heart disease Surgical History history Left brachial AV fistula creation (~04/11/19) History of coronary artery stent placement (10/09/08) History of left-sided carotid endarterectomy History of total abdominal hysterectomy and bilateral salpingo-oophorectomy History of ureter stent Hx of appendectomy Hx of bilateral cataract extraction Hx of cataract surgery Hx of cystoscopy Hx of hysterectomy (~2016) Social History Smoking Status: Never smoker alcohol intake: never substance use type: does not use ROS Constitutional Constitutional: Reports fatigue and weakness; Denies anorexia, change in weight, chills, fever(s), malaise, night sweats or other Eyes Eyes: Denies blurry vision, change in eye color, change in vision, discharge f rom eye(s), double vision, erythema, eye pain, loss of vision or other ENT HEENT: Denies abnormal hearing, dysphagia, ear pain, epistaxis, headache(s), hearing loss, nasal congestion, nasal discharge, post nasal drip, sinus pre ssure, sore throat or other Cardiovascular Cardiovascular: Denies chest pain, claudication, dyspnea on exertion, edema, lightheadedness, orthopnea, palpitations, paroxysmal nocturnal dyspnea, rapid heart rate, syncope or other Respiratory/Chest Respiratory/Chest: Denies cough, dyspnea, excessive phlegm production, hemoptysis, productive cough, shortness of breath at rest, shortness of breath with exertion, wheezing or other Gastrointestinal Gastrointestinal: Denies abdominal pain, coffee ground emesis, constipation, diarrhea, dyspepsia, hematemesis, hematochezia, loose stools, melena, nausea, vomiting or other Genitourinary Genitourinary: Denies burning urination, difficulty urinating, dysuria, alie turia, nocturia, urinary frequency, urinary hesitancy, urinary incontinence, urinary urgency or other Musculoskeletal Musculoskeletal: Denies arthralgias, back pain, joint pain, joint stiffness, joint swelling, myalgias, neck pain or other Neurologic Neurologic: Denies abnormal gait, abnormal speech, confusion, disequilibrium, dizziness, focal weakness, headache(s), numbness, paresthesias, seizure-like activity, seizures, syncope, tingling, tremor(s) or other Psychiatric Psychiatric: Denies anxiety, depression, homicidal ideation, suicidal ideation or other Endocrine Endocrinology: Denies change in body appearance, cold intolerance, excessive sweating, heat intolerance, polydipsia, polyuria or other Hematologic/Lymphatic Hematologic/Lymphatic: Denies anemia, easy bleeding, easy bruising, lymphadenopathy or other Allergic/Immunologic Allergic/Immunologic: Denies rhinitis, hives, eczemia, asthma or other Vital Signs Vital Signs Vital Signs: 08/11/21 10:16 08/11/21 13:56 Temperature 99 F 97.0 F L Temperature Source Temporal Temporal Pulse Rate 96 63 Respiratory Rate 18 16 Blood Pressure 120/52 L 120/45 L Blood Pressure Mean 74 70 Pulse Ox 96 98 Oxygen Delivery Method Room Air Room Air Weight Weight: 134 lb Body Mass Index (BMI) 23.7 Physical Exam Const alert and oriented x3 General Appearance: cooperative HEENT normocephalic, head/scalp atraumatic and hearing grossly normal bilaterally Eyes PERRL and conjunctivae normal Neck no lymphadenopathy and no JVD Resp normal respiratory effort, no retractions and no use of accessory muscles Cardio regular rate, regular rhythm and no JVD GI normal to inspection, nondistended, normoactive bowel sounds GI Narrative: No pain to palpation in the suprapubic region or flank pain. Extremity normal to inspection Skin no rashes or lesions noted Neuro CN's II-XII intact bilaterally Psych affect normal Results Lab / Micro Data Result Diagrams: 08/11/21 10:30 08/11/21 10:30 Labs: Laboratory Results - last 24 hr 08/11/21 10:30: WBC 16.8 H, RBC 3.00 L, Hgb 10.1 L, Hct 28.2 L, MCV 94.0, MCH 33.7 H, MCHC 35.8, RDW Std Deviation 47.9 H, RDW Coeff of Lianet 14.2, Plt Count 307, MPV 9.3, Immature Gran % (Auto) 1.000 H, Neut % (Auto) 86.3 H, Lymph % (Auto) 5.1 L, [place] % (Auto) 7.3, Eos % (Auto) 0.1, Baso % (Auto) 0.2, Absolute Neuts (auto) 14.5 H, Absolute Lymphs (auto) 0.86, Nucleated RBC % 0 08/11/21 10:30: Sodium 134 L, Potassium 4.5, Chloride 105, Carbon Dioxide 22.0, Anion Gap 7, BUN 56 H, Creatinine 4.12 H, Estim Creat Clear Calc 9.31, Est GFR (MDRD) Af Amer 13 L, Est GFR (MDRD) Non-Af 11 L, BUN/Creatinine Ratio 13.6, Glucose 117 H, Calcium 10.1, Total Bilirubin 0.50, AST 15, ALT 28, Alkaline Phosphatase 134 H, Total Protein 6.4, Albumin 2.8 L, Globulin 3.6, Albumin/Globulin Ratio 0.8 L, Lipase 74 08/11/21 11:35: Urine Color Yellow, Urine Clarity Cloudy, Urine pH 7.0, Ur Specific [place] 1.010, Urine Protein 100 H, Urine Glucose (UA) Normal, Urine Ketones Negative, Urine Occult Blood 250 H, Urine Nitrite Positive H, Urine Bilirubin Negative, Urine Urobilinogen Normal, Ur Leukocyte Esterase 500 H, Urine RBC 10-25 SEEN, Urine WBC >100 SEEN, Ur Squamous Epith Cells 0-5 SEEN, Urine Bacteria 3+, Urine Mucus 0 SEEN Radiology Impression Abdomen CT 08/11/21 10:51 IMPRESSION: Severe bilateral hydronephrosis and ureteral dilatation despite the presence of bilateral ureteral stents. Electronically Signed: Blake Lake MD at 13:06 EST Reading Location ID and State: [facility] / [place] Tel , Service support , Assessment & Plan Assessment/Plan (1) Urinary tract infection: (2) Leukocytosis: (3) Pyelonephritis: PLAN: Patient is a 80-year-old female who presents to the ED at [facility] on 08/11/2021 with a chief complaint of progressively worsening fatigue. Patient will be admitted for evaluation and management of complicated UTI and suspected pyelonephritis. 1) suspected pyelonephritis/complicated UTI Patient with a 10-day history of progressively worsening fatigue, which she re ports she always gets with UTIs. Patient with history of multiple UTIs and follows with Dr. Rivas. Most recent urine culture in May 2021 showed E. coli with sensitivity to Zosyn. Patient with a white count of 16,000. UA demonstrates yellow cloudy urine with positive nitrites, 500 leukocyte esterase, greater than 100 urine WBCs seen and 3+ bacteria. Plan; admit to [facility], initiate Zosyn for broad-spectrum coverage, urine culture ordered/pending, CBC and CMP in a.m. 2) severe bilateral hydronephrosis CT of the abdomendemonstrates severe bilateral hydronephrosis with ureteral dilatation. Patient had ureteral stents placed by Dr. Rivas in 2020. Dr[address] Madsen consulted and would like to take patient for ureteral stent replacement on 08/12/2021. Management per urology, will make n.p.o. at midnight. 3) CKD stage V Creatinine currently 4.12, with a GFR of 11. Baseline creatinine appears between 3 and 4. Patient does follow with direct support staff member Dr. Barrientos and does have a AV fistula placed in her left arm. Will monitor kidney function and consult nephrology if worsening kidney function. 4) HTN Continue metoprolol and amlodipine. 5) CAD status post stent Continue aspirin, and Plavix 6) iron deficiency anemia Hemoglobin is 10, which is patient's baseline. We will continue oral iron. 7) paroxysmal atrial fibrillation Heart rate is currently controlled. Continue amiodarone and metoprolol. DVT prophylaxis - not indicated, to undergo surgery on 08/12. CODE STATUS: DNRCC-A, no intubation. Advance care planning: Patient has a living will and healthcare power of research attorney. Patient's son Benitez Yates is age POA and is to make decisions for patient in the event that she cannot do so herself. Patient seen by Rafa Alvares PA-C, under the supervision of Dr. Nunes. Time spent on patient care: 25 minutes. Documented by User: Dr. Brett Nunes DO 08/11/21 17:34 HPI - General General Date of Admission: 08/11/21 [facility] Medical History Acute pyelonephritis Ambulates with cane Anemia Arthritis Atherosclerosis of coronary artery of [place] heart without angina pectoris Atrial fibrillation Coronary artery disease Easy bruising Edema Essential (primary) hypertension Heart disease History of renal dialysis HLD (hyperlipidemia) Hx of echocardiogram (~2015) Hydronephrosis due to obstruction of ureter Hyperparathyroidism due to renal insufficiency Hypertension Hypothyroidism Iron deficiency anemia Irregular heart beat Kidney disease Normochromic normocytic anemia Obstructive nephropathy Osteoarthritis Paroxysmal atrial fibrillation Post-menopausal Sepsis Stenosis of left carotid artery Thyroid disease Urinary tract infection Vitamin deficiency Wears glasses Home Medications aspirin 81 mg PO DAILY 05/01/16 [History Last Taken 01/10/21 07:00] ferrous sulfate 325 mg PO BID 01/11/19 [History Last Taken 07/06/20 05:00] acetaminophen 1,300 mg PO BID 04/05/19 [History Last Taken 07/06/20 05:00] calcitriol 0.25 mcg PO MOTUWETHFR 10/28/19 [History Last Taken 07/06/20 05:00] sodium bicarbonate 650 mg PO BID 12/15/19 [History Last Taken 07/06/20 05:00] amiodarone 100 mg PO DAILY 07/06/20 [History Last Taken 06/03/21] levothyroxine 75 mcg PO DAILY 10/09/20 [History Last Taken 06/03/21] ascorbic acid (vitamin C) 500 mg PO DAILY 01/08/21 [History Last Taken Unknown] metoprolol tartrate 25 mg tablet 25 mg PO BID #180 tab 02/12/21 [Rx Last Taken 06/03/21] clopidogrel 75 mg tablet 75 mg PO DAILY #90 tab 03/25/21 [Rx Last Taken Unknown] oxycodone-acetaminophen [Percocet] 1 tab PO Q8H PRN 3 Days #10 tab 06/03/21 [Rx Last Taken Unknown] Allergy/AdvReac Type Severity Reaction Status Date / Time lisinopril Allergy Hives Verified 08/11/21 10:18 Sulfa (Sulfonamide Allergy Hives Verified 08/11/21 10:18 Antibiotics) Family History Mother CVA (cerebral vascular accident) Hypertension Alcoholism Heart disease Father Heart disease Surgical History history Left brachial AV fistula creation (~04/11/19) History of coronary artery stent placement (10/09/08) History of left-sided carotid endarterectomy History of total abdominal hysterectomy and bilateral salpingo-oophorectomy History of ureter stent Hx of appendectomy Hx of bilateral cataract extraction Hx of cataract surgery Hx of cystoscopy Hx of hysterectomy (~2016) Social History Smoking Status: Never smoker alcohol intake: never substance use type: does not use Results Lab / Micro Data Result Diagrams: 08/11/21 10:30 08/11/21 10:30 Charges/Coding Addendum Addendum: Patient was seen and examined today independently of Rafa Alvares, she came to the emergency room today at [facility] with complaints of not feeling well over the last several days along with chills. Patient also had some nausea and vomiting today. Work-up in the emergency room included a CBC which showed an elevated white blood cell count at 16.8, hemoglobin was 10.1. Chemistry profile was remarkable for creatinine of 4.12, BUN of 56, glucose of 117, and sodium of 134. Patient's urinalysis was indicative of urinary tract infection with positive nitrites, 500 leukocyte esterase, 10-25 RBCs, over 100 WBCs, and +[address] of the abdomen showed severe bilateral hydronephrosis and ureteral dilatation with presence of bilateral urethral stents. On examination she appeared in good health and spirits, she does not appear to be in any distress. Vital signs as documented. Skin warm and dry and without overt rashes. Neck without JVD, thyroid appears normal, trachea is midline, neck is supple. Lungs clear, normal air movement was noted. Heart exam notable for regular rhythm, normal sounds , no rubs or gallops present, there is a 2/6 systolic murmur noted at the left sternal border and apex. Abdomen unremarkable and without evidence of organomegaly, masses, or abdominal aortic enlargement, bowel sounds are present in all 4 quadrants, no abdominal tenderness was noted. Extremities nonedematous, no cyanosis was noted, no clubbing was noted. Neuro: Cranial nerves II through XII are grossly intact, no focal motor deficits were noted, sensation to light touch and pinprick is intact, motor exam 5/5 throughout. Psych: Patient is alert and oriented x3, she does not appear anxious or depressed, she does not appear agitated. Impression #1 acute pyelonephritis-patient will be admitted, she was placed on IV Rocephin, she will be seen in consultation by urology who is planning on changing her stents tomorrow, urology was contacted by the emergency room physician. #2 bilateral hydronephrosis secondary to obstructive uropathy-patient will have her stents changed by urology tomorrow #3 stage V chronic kidney disease-patient will be given IV fluids tonight, labs will be rechecked tomorrow #4 atherosclerotic heart disease-this appears stable at this time #5 essential hypertension-patient will remain on her current blood pressure medication #6 paroxysmal atrial fibrillation-patient is currently on amiodarone, this will be continued #7 valvular heart disease-patient has a murmur over her left sternal border and apex, this may be indicative of mitral valve regurg, I do not feel the patient needs an echo at this time. #8 iron deficiency anemia-patient is currently on ferrous sulfate, this will be continued I have reviewed Rafa Alvares's history and physical including his medical assessment and plan of care and endorse it with the above additions. Total clinical time spent by myself addressing the patient's medical issues, reviewing all of the data, and collaborating with the patient's care team: 45 minutes Visit Charges Inpatient E&M: [id number] Init Hosp L3
[2021-08-11] MEDS: 0.9% Normal Saline 1,000 ML 125 ML IV ×2 (15:53→23:01)
[2021-08-11] MEDS: Ferrous Sulfate 325 MG Tablet PO (17:19)
[2021-08-11] MEDS: Heparin Injection (Vial) 5,000 UNIT/ML VIAL 5000 UNIT SC (21:27)
[2021-08-11] MEDS: Metoprolol Tartrate 25 MG Tablet PO (21:27)
[2021-08-12] VITALS (12 sets, daily range): BP systolic 127–161; BP diastolic 46–90; PULSE 73–87; RESP 16–24; TEMP 36.9–38.2; O2SAT 87–95; BMI 23.7
--- NOTE | 2021-08-12 06:00 | EKG12_ITS ---
Test Reason : PRE-OP Blood Pressure : / mmHG Vent. Rate : 077 BPM Atrial Rate : 077 BPM P-R Int : 198 ms QRS Dur : 090 ms QT Int : 408 ms P-R-T Axes : 073 039 046 degrees QTc Int : 461 ms Normal sinus rhythm with sinus arrhythmia Normal ECG When compared with ECG of 06-JUL-2020 17:31, No significant change was found Confirmed by EVELIO RIZZO, ELEANOR ([id number]), video tape editor ABIMAEL OBRIEN ([id number]) on 08/12/2021 2:25:29 PM Referred By: STEPHANIE SALEH Confirmed By:ELEANOR FRASER MD
[2021-08-12 06:01] LABS: Absolute Lymphocyte Count 1.44 X10^3/uL (0.83-4.51); Absolute Neutrophil Count 13.2 X10^3/uL (2.0-7.7); Basophil# 0.03 X10^3/uL; Basophil% 0.2 % (0-1); Hematocrit 25.9 % (37-47); Lymphocyte # 1.44 X10^3/ul (0.83-4.51); Mean Corp Hgb Conc 30.9 g/dL (32-36); Mean Corpuscular Volume 100.4 fL (81-99); Monocyte# 1.19 X10^3/uL; Monocyte% 7.5 % (0-10); NRBC Flagged by Analyzer 0 % (0-5); Neutrophil % 82.6 % (47-70); Platelet Count 222 K/mm3 (150-450); RBC Distribution Width CV 14.4 % (11.6-14.6); RBC Distribution Width SD 53.2 fl (35.1-43.9); Red Blood Count 2.58 M/mm3 (4.2-5.4)
[2021-08-12 06:13] LABS: International Normalized Ratio 1.3; Prothrombin Time (Protime)PT. 15.7 SECONDS (11.7-14.9)
[2021-08-12 06:14] LABS: Partial Thromboplast Time 42.9 Seconds (24.1-36.2)
[2021-08-12 06:25] LABS: Anion Gap 7 (5-15); BUN 48 mg/dL (7-18); BUN/Creat Ratio 13.2 RATIO (10-20); Calcium,Total 9.1 mg/dL (8.5-10.1); Chloride 110 mmol/L (98-107); Creatinine, Serum 3.64 mg/dL (0.55-1.02); EST Glomerular Filtration Rate 13 mL/min (>60); Est Glom Filt Rate - Afr Amer 16 mL/min (>60); Estimated Creatinine Clearance 10.54 ml/min; Glucose 95 mg/dL (74-106); Potassium 4.4 mmol/L (3.5-5.1); Sodium Level 136 mmol/L (136-145)
[2021-08-12] MEDS: 0.9% Normal Saline 1,000 ML 125 ML IV ×3 (06:38→20:04)
[2021-08-12 06:39] LABS: AST(SGOT) 18 U/L (15-37); Alanine Aminotransfer ALT/SGPT 25 U/L (13-56); Albumin, Serum 2.2 g/dL (3.2-5.0); Alkaline Phosphatase 113 U/L (45-117); Bilirubin, Direct 0.22 mg/dL (0.00-0.30); Globulin 3.1 g/dL (2.2-4.2); Protein, Total 5.3 g/dL (6.4-8.2); Thyroid Stim Hormone (TSH) 1.74 uIU/mL (0.358-3.74)
[2021-08-12] MEDS: Amiodarone 200 MG Tablet 100 MG PO (10:07)
[2021-08-12] MEDS: Metoprolol Tartrate 25 MG Tablet PO ×2 (10:08→20:04)
--- NOTE | 2021-08-12 11:40 | CASEMGMT ---
MASSIMO TENA Assessment: Face to Face with pt for initial transition planning/care coordination assessment. MASSIMO TENA introduced self and role at [facility], pt voices understanding and consents to assessment. Pt is A/O x4 and answers all questions appropriately at this time. Pt lying in bed in no distress. Care providers, pharmacy, and demographics verified/updated. Admitting Dx: pyelonephritis PCP:Mark Specialists: shmuel Rivas; pawel Barrientos Preferred Pharmacy: [facility] Insurance: [facility] Prescription Benefit: yes LW/HPOA: Pt has a LW on file at [facility]. Pt states she does not have a DPOA. LNOK: Benitez Zaidi, son; Tavo Zaidi, son Living Arrangements: Pt lives with son in a split level house with 1 step to enter. Pt reports she is I in ADL's and denies concerns at home. Transportation: Pt drives self and denies concerns with transportation. DME/HHC/SNF: Pt has a cane and walker at home. She mostly uses the cane. Pt denies hx of HHC or SNF stays. Pt states no concerns with going home at time of dc. States her left knee is stiff but that is because she is lying in bed so much during the hospitalization. Made her aware there is a chair in her room, she could check with her nurse to see if she is able to get up in it to help the stiffness. Pt states she thinks she will just stay in bed. Pt states no further concerns/needs. CM to follow. Advised pt to ask CM if any further question/concerns/needs arise, voices understanding. Pt Goal: Home Plan: Home
--- NOTE | 2021-08-12 13:09 | PN.HOSP_ITS ---
Documented by User: Rafa LEMUS 08/12/21 13:21 Subjective Subjective Patient is a 80-year-old female comfortably resting in bed, alert and orient x3. Denies development of any new symptoms overnight. Does not appear in acute distress. Objective Data Objective Data Vital Signs: Vital Signs Temp Pulse Resp BP Pulse Ox 99.3 F H 74 18 127/46 H 95 08/12/21 08:44 08/12/21 10:08 08/12/21 08:44 08/12/21 08:44 08/12/21 08:44 Oxygen Delivery Method Room Air Weight: 134 lb Body Mass Index (BMI) 23.7 Intake & Output: Intake and Output for Last 24 Hours 08/10/21 08/11/21 08/12/21 23:59 23:59 23:59 Intake Total 2041.67 / 2341.67 1302.08 / 1302.08 Balance 2041.67 / 2341.67 1302.08 / 1302.08 Lab / Micro Data Result Diagrams: 08/12/21 05:38 08/12/21 05:38 Labs: Laboratory Results - last 24 hr 08/12/21 05:38: WBC 16.0 H, RBC 2.58 L, Hgb 8.0 L, Hct 25.9 L, MCV 100.4 H D, MCH 31.0, MCHC 30.9 L D, RDW Std Deviation 53.2 H, RDW Coeff of Lianet 14.4, Plt Count 222, MPV 9.0, Immature Gran % (Auto) 0.700, Neut % (Auto) 82.6 H, Lymph % (Auto) 9.0 L, [place] % (Auto) 7.5, Eos % (Auto) 0.0, Baso % (Auto) 0.2, Absolute Neuts (auto) 13.2 H, Absolute Lymphs (auto) 1.44, Nucleated RBC % 0 08/12/21 05:38: Sodium 136, Potassium 4.4, Chloride 110 H, Carbon Dioxide 19.0 L , Anion Gap 7, BUN 48 H, Creatinine 3.64 H, Estim Creat Clear Calc 10.54, Est GFR (MDRD) Af Amer 16 L, Est GFR (MDRD) Non-Af 13 L, BUN/Creatinine Ratio 13.2, Glucose 95, Calcium 9.1 08/12/21 05:38: PT 15.7 H, INR 1.3, APTT 42.9 H 08/12/21 05:38: Total Bilirubin 0.50, Direct Bilirubin 0.22, AST 18, ALT 25, Alkaline Phosphatase 113, Total Protein 5.3 L, Albumin 2.2 L, Globulin 3.1, TSH 1.74 Micro: Microbiology 08/11/21 11:35 Urine, Clean Catch Urine Culture - Preliminary Gram negative jeronimo Physical Exam Const alert, oriented x3 and no apparent distress HEENT head/scalp atraumatic and moist oral mucous membranes Head and Scalp: normocephalic Eyes PERRL and conjunctivae normal Neck no lymphadenopathy and no JVD Resp normal respiratory effort, no retractions and no use of accessory muscles Cardio regular rate, regular rhythm and no JVD GI normal to inspection, nondistended, normoactive bowel sounds Extremity normal to inspection and full ROM Skin no rashes or lesions noted Neuro CN's II-XII intact bilaterally Psych affect normal Assessment & Plan Assessment/Plan (1) Pyelonephritis: (2) Urinary tract infection: (3) Leukocytosis: (4) Hydronephrosis: PLAN: Day 1 Discharge planning: Current plan is for patient to discharge home when medically ready. 1) suspected pyelonephritis/complicated UTI Urine culture with gram-negative rods. Vital signs are stable, although patient is still with a elevated white count at 16,000, slightly down from [place]. We will continue with Zosyn and await sensitivities and speciation. 2) severe bilateral hydronephrosis CT of the abdomendemonstrates severe bilateral hydronephrosis with ureteral dilatation. Patient had ureteral stents placed by Dr. Rivas in [address]. [address] Rivas consulted and would like to take patient for ureteral stent replacement today. Management per urology. 3) CKD stage V Creatinine is 3.64 and at baseline. Patient does follow with regional sales manager Dr. Barrientos and does have a AV fistula placed in her left arm. Will monitor kidney function and consult nephrology if worsening kidney function. 4) HTN Continue metoprolol and amlodipine. 5) CAD status post stent Continue aspirin, and Plavix 6) iron deficiency anemia Hemoglobin is 8.0, which is down from patient baseline at 10. We will continue to monitor and will transfuse if hemoglobin falls below 7. 7) paroxysmal atrial fibrillation Heart rate is currently controlled. Continue amiodarone and metoprolol. DVT prophylaxis - Heparin. Patient seen by Rafa Alvares PA-C, under the supervision of Dr. Nunes. Time spent on patient care: 10 minutes. Documented by User: Dr. Brett Nunes, 08/12/21 14:22 Objective Data Lab / Micro Data Result Diagrams: 08/12/21 05:38 08/12/21 05:38 Charges/Coding Addendum Addendum: Patient was seen and examined independently of Rafa Alvares, she will undergo replacement of her stents today in her ureters. Patient's white blood cell count is about the same as it was on her admission, her creatinine is has improved today. Patient's high temp today was 99.3. On examination she appeared in good health and spirits, she does not appear to be in any distress. Vital signs as documented. Skin warm and dry and without overt rashes. Neck without JVD, thyroid appears normal, trachea is midline, neck is supple. Lungs clear, normal air movement was noted. Heart exam notable for regular rhythm, there is a 2/6 systolic murmur noted at the left sternal border and apex, there is a 1/6 systolic murmur noted at the right sternal border, no rubs or gallops were noted. Abdomen unremarkable and without evidence of organomegaly, masses, or abdominal aortic enlargement, bowel sounds are present in all 4 quadrants, no abdominal tenderness was noted. Extremities nonedematous, no cyanosis was noted, no clubbing was noted. Neuro: Cranial nerves II through XII are grossly intact, no focal motor deficits were noted, sensation to light touch and pinprick is intact, motor exam 5/5 throughout. Psych: Patient is alert and oriented x3, she does not appear anxious or depressed, she does not appear agitated. #1 acute pyelonephritis-secondary to E. coli-continue present antibiotic coverage #2 bilateral hydronephrosis secondary to obstructive uropathy-patient will have her stents changed by urology today #3 stage V chronic kidney disease-patient will be given IV fluids tonight, labs will be rechecked tomorrow #4 atherosclerotic heart disease-this appears stable at this time #5 essential hypertension-patient will remain on her current blood pressure medication #6 paroxysmal atrial fibrillation-patient is currently on amiodarone, this will be continued #7 valvular heart disease-patient has a murmur primarily over her left sternal border and apex, this may be indicative of mitral valve regurg, I do not feel the patient needs an echo at this time. #8 iron deficiency anemia-patient is currently on ferrous sulfate, this will be continued, CBC will be repeated tomorrow I have reviewed Rafa Alvares's progress note including his medical assessment and plan of care and endorse it. Total clinical time spent by myself addressing the patient's issues, reviewing the patient's medical data, and collaborating with her caregivers: 20 minutes Visit Charges Inpatient E&M: 77729 Subs Hosp L2
--- NOTE | 2021-08-12 13:24 | CASEMGMT ---
Pt screened with [facility] Palliative Screening Tool due to severe renal disease. Pt met criteria, no order received at this time.
--- NOTE | 2021-08-12 14:10 | PCM.PN.HOSP ---
Subjective Subjective Patient was seen and examined today, she will undergo replacement of her stents in her ureters this afternoon, her white count today was 16,000, creatinine was improved at 3.64, BUN was 48. Objective Data Objective Data Vital Signs: Vital Signs Temp Pulse Resp BP Pulse Ox 99.3 F H 74 18 127/46 H 95 08/12/21 08:44 08/12/21 10:08 08/12/21 08:44 08/12/21 08:44 08/12/21 08:44 Oxygen Delivery Method Room Air Weight: 60.781 kg Body Mass Index (BMI) 23.7 Intake & Output: Intake and Output for Last 24 Hours 08/10/21 08/11/21 08/12/21 23:59 23:59 23:59 Intake Total 2041.67 / 2341.67 1302.08 / 1302.08 Balance 2041.67 / 2341.67 1302.08 / 1302.08 Lab / Micro Data Result Diagrams: 08/12/21 05:38 08/12/21 05:38 Labs: Laboratory Results - last 24 hr 08/12/21 05:38: WBC 16.0 H, RBC 2.58 L, Hgb 8.0 L, Hct 25.9 L, MCV 100.4 H D, MCH 31.0, MCHC 30.9 L D, RDW Std Deviation 53.2 H, RDW Coeff of Lianet 14.4, Plt Count 222, MPV 9.0, Immature Gran % (Auto) 0.700, Neut % (Auto) 82.6 H, Lymph % (Auto) 9.0 L, [place] % (Auto) 7.5, Eos % (Auto) 0.0, Baso % (Auto) 0.2, Absolute Neuts (auto) 13.2 H, Absolute Lymphs (auto) 1.44, Nucleated RBC % 0 08/12/21 05:38: Sodium 136, Potassium 4.4, Chloride 110 H, Carbon Dioxide 19.0 L, Anion Gap 7, BUN 48 H, Creatinine 3.64 H, Estim Creat Clear Calc 10.54, Est GFR (MDRD) Af Amer 16 L, Est GFR (MDRD) Non-Af 13 L, BUN/Creatinine Ratio 13.2, Glucose 95, Calcium 9.1 08/12/21 05:38: PT 15.7 H, INR 1.3, APTT 42.9 H 08/12/21 05:38: Total Bilirubin 0.50, Direct Bilirubin 0.22, AST 18, ALT 25, Alkaline Phosphatase 113, Total Protein 5.3 L, Albumin 2.2 L, Globulin 3.1, TSH 1.74 Micro: Microbiology 08/11/21 11:35 Urine, Clean Catch Urine Culture - Preliminary Gram negative jeronimo
--- NOTE | 2021-08-12 17:13 | CON.PCM_ITS ---
Assessment & Plan Assessment/Plan (1) Urinary tract infection: (2) Leukocytosis: (3) Hydronephrosis due to obstruction of ureter: PLAN: Continue supportive care Await culture results Proceed with cystoscopy and bilateral ureteral stent change HPI Consult Data Date of Consult: 08/12/21 HPI Narrative HPI Narrative: ERNESTO KATZ, is a 80 F who has a longstanding history of bilateral ureteral obstruction. She presented to the emergency room with signs of infection and obstruction. Symptoms included increased fatigue and sleeping, nausea and vomiting, and subjective fever and chills. She was due to have her regular ureteral stent change at the end of August. We will plan to change those today instead. Informed consent was obtained. [facility] Medical History Acute pyelonephritis Ambulates with cane Anemia Arthritis Atherosclerosis of coronary artery of [place] heart without angina pectoris Atrial fibrillation Coronary artery disease Easy bruising Edema Essential (primary) hypertension Heart disease History of renal dialysis HLD (hyperlipidemia) Hx of echocardiogram (~2015) Hydronephrosis due to obstruction of ureter Hyperparathyroidism due to renal insufficiency Hypertension Hypothyroidism Iron deficiency anemia Irregular heart beat Kidney disease Normochromic normocytic anemia Obstructive nephropathy Osteoarthritis Paroxysmal atrial fibrillation Post-menopausal Sepsis Stenosis of left carotid artery Thyroid disease Urinary tract infection Vitamin deficiency Wears glasses Home Medications aspirin 81 mg PO DAILY 05/01/16 [History Last Taken 01/10/21 07:00] ferrous sulfate 325 mg PO BID 01/11/19 [History Last Taken 07/06/20 05:00] acetaminophen 1,300 mg PO BID 04/05/19 [History Last Taken 07/06/20 05:00] calcitriol 0.25 mcg PO MOTUWETHFR 10/28/19 [History Last Taken 07/06/20 05:00] sodium bicarbonate 650 mg PO BID 12/15/19 [History Last Taken 07/06/20 05:00] amiodarone 100 mg PO DAILY 07/06/20 [History Last Taken 06/03/21] levothyroxine 75 mcg PO DAILY 10/09/20 [History Last Taken 06/03/21] ascorbic acid (vitamin C) 500 mg PO DAILY 01/08/21 [History Last Taken Unknown] metoprolol tartrate 25 mg tablet 25 mg PO BID #180 tab 02/12/21 [Rx Last Taken 06/03/21] clopidogrel 75 mg tablet 75 mg PO DAILY #90 tab 03/25/21 [Rx Last Taken Unknown] oxycodone-acetaminophen [Percocet] 1 tab PO Q8H PRN 3 Days #10 tab 06/03/21 [Rx Last Taken Unknown] Allergy/AdvReac Type Severity Reaction Status Date / Time lisinopril Allergy Hives Verified 08/11/21 10:18 Sulfa (Sulfonamide Allergy Hives Verified 08/11/21 10:18 Antibiotics) Family History Mother CVA (cerebral vascular accident) Hypertension Alcoholism Heart disease Father Heart disease Surgical History history Left brachial AV fistula creation (~04/11/19) History of coronary artery stent placement (10/09/08) History of left-sided carotid endarterectomy History of total abdominal hysterectomy and bilateral salpingo-oophorectomy History of ureter stent Hx of appendectomy Hx of bilateral cataract extraction Hx of cataract surgery Hx of cystoscopy Hx of hysterectomy (~2016) Social History Smoking Status: Never smoker alcohol intake: never substance use type: does not use ROS Constitutional Constitutional: Reports chills, fatigue and fever(s) Eyes Eyes: Denies change in vision ENT HEENT: Reports systems reviewed and no addt'l complaints, except as documented Cardiovascular Cardiovascular: Reports fatigue, nausea and vomiting; Denies chest pain, diaphoresis or dyspnea Respiratory/Chest Respiratory/Chest: Denies chest congestion, cough or dyspnea Gastrointestinal Gastrointestinal: Reports nausea and vomiting Genitourinary Genitourinary: Denies dysuria, hematuria, urinary frequency, urinary incontinence or urinary urgency Musculoskeletal Musculoskeletal: Reports systems reviewed and no addt'l complaints, except as documented Integumentary Integumentary: Reports systems reviewed and no addt'l complaints, except as documented Neurologic Neurologic: Reports systems reviewed and no addt'l complaints, except as documented Psychiatric Psychiatric: Reports systems reviewed and no addt'l complaints, except as documented Endocrine Endocrinology: Reports systems reviewed and no addt'l complaints, except as documented Hematologic/Lymphatic Hematologic/Lymphatic: Reports systems reviewed and no addt'l complaints, except as documented Allergic/Immunologic Allergic/Immunologic: Reports systems reviewed and no addt'l complaints, except as documented Physical Exam Const alert, oriented x3 and no apparent distress HEENT normocephalic, head/scalp atraumatic, hearing grossly normal bilaterally, e xternal ears normal and external nose normal Eyes conjunctivae normal and no scleral icterus General Eye: normal appearance of both eyes Neck supple General: trachea midline Lymph Lymphatic: no lymphedema noted Chest inspection of chest normal Chest: symmetrical chest wall rise Resp normal respiratory effort, normal air movement, no retractions and no use of accessory muscles Cardio regular rate and regular rhythm GI soft to palpation, non-tender and non-distended external exam normal Back/Spine no CVA tenderness Extremity normal to inspection Skin no rashes or lesions noted, no wounds, skin turgor normal, no jaundice, no petechiae and no mottling Neuro oriented x3, CN's II-XII intact bilaterally and moves all extremities Psych mental status grossly normal, thought process normal and cooperative Lab / Micro Data Result Diagrams: 08/12/21 05:38 08/12/21 05:38 Labs: Laboratory Results - last 24 hr 08/12/21 05:38: WBC 16.0 H, RBC 2.58 L, Hgb 8.0 L, Hct 25.9 L, MCV 100.4 H D, MCH 31.0, MCHC 30.9 L D, RDW Std Deviation 53.2 H, RDW Coeff of Lianet 14.4, Plt Count 222, MPV 9.0, Immature Gran % (Auto) 0.700, Neut % (Auto) 82.6 H, Lymph % (Auto) 9.0 L, [place] % (Auto) 7.5, Eos % (Auto) 0.0, Baso % (Auto) 0.2, Absolute Neuts (auto) 13.2 H, Absolute Lymphs (auto) 1.44, Nucleated RBC % 0 08/12/21 05:38: Sodium 136, Potassium 4.4, Chloride 110 H, Carbon Dioxide 19.0 L , Anion Gap 7, BUN 48 H, Creatinine 3.64 H, Estim Creat Clear Calc 10.54, Est GFR (MDRD) Af Amer 16 L, Est GFR (MDRD) Non-Af 13 L, BUN/Creatinine Ratio 13.2, Glucose 95, Calcium 9.1 08/12/21 05:38: PT 15.7 H, INR 1.3, APTT 42.9 H 08/12/21 05:38: Total Bilirubin 0.50, Direct Bilirubin 0.22, AST 18, ALT 25, Alkaline Phosphatase 113, Total Protein 5.3 L, Albumin 2.2 L, Globulin 3.1, TSH 1.74 Micro: Microbiology 08/11/21 11:35 Urine, Clean Catch Urine Culture - Preliminary Gram negative jeronimo
--- NOTE | 2021-08-12 17:19 | PCM.OPRPT ---
Problems Associated Problem List Diagnoses (1) Urinary tract infection: (2) Leukocytosis: (3) Hydronephrosis due to obstruction of ureter: Report of Operation Date of Procedure: 08/12/21 Pre-Operative Diagnosis: Bilateral ureteral obstruction with hydronephrosis, urinary tract infection and leukocytosis Post-Operative Diagnosis: Same Surgery/Procedure Performed:: Cystoscopy with bilateral ureteral stent change Surgeon: Melissa Rivas Type of Anesthesia: MAC Description of Procedure: The patient is a 80-year-old female with chronic indwelling ureteral stents who presented with evidence of obstruction and infection. She now presents for bilateral ureteral stent change. Informed consent was obtained. The patient was taken to the operating room and placed on the operating room table. Anesthesia monitored the head, neck, airway, IV access and vital signs throughout the case. Once anesthesia was appropriate ministered the patient was placed into dorsal lithotomy position was prepped and draped in usual sterile fashion. At this time the cystoscope was inserted through the urethra under direct visualization into the urinary bladder. The right ureteral orifice was identified and a 0.035 Glidewire was passed alongside the stent. The stent was then removed and a new 6 x 24 ureteral stent was inserted over the guidewire with good positioning in the renal pelvis as well as the urinary bladder. This process was then repeated on the patient's left side also with good positioning of the stent. The patient's bladder was then emptied and the case was terminated. She was awakened and taken the recovery room in good condition. There were no complications during this procedure. Complications None Admit VTE Documentation VTE Present on Admission: Yes VTE Mechan Device Prophylaxis: SCD's VTE Pharm Prophylaxis ordered?: Yes
[2021-08-12] MEDS: Acetaminophen 325 MG Tablet 650 MG PO (20:05)
[2021-08-12] MEDS: Heparin Injection (Vial) 5,000 UNIT/ML VIAL 5000 UNIT SC (20:05)
[2021-08-13 02:56] VITALS: BP 156/56; PULSE 68; RESP 16; TEMP 36.4; O2SAT 95
[2021-08-13] MEDS: Levothyroxine 75 MCG Tablet PO (05:11)
[2021-08-13 06:20] LABS: Absolute Lymphocyte Count 1.44 X10^3/uL (0.83-4.51); Absolute Neutrophil Count 15.2 X10^3/uL (2.0-7.7); Basophil# 0.05 X10^3/uL; Basophil% 0.3 % (0-1); Eosinophil# 0.02 X10^3/uL; Eosinophils% 0.1 % (0-5); Hematocrit 26.9 % (37-47); Hemoglobin 8.6 g/dL (12.0-15.0); Lymphocyte # 1.44 X10^3/ul (0.83-4.51); Lymphocyte % 8.1 % (19-41); Mean Corpuscular Hgb 31.5 pg (27.0-32.0); Mean Corpuscular Volume 98.5 fL (81-99); Mean Platelet Vol. 8.9 fl (6.2-12.0); Monocyte# 0.92 X10^3/uL; Monocyte% 5.2 % (0-10); NRBC Flagged by Analyzer 0 % (0-5); Neutrophil # 15.17 X10^3/uL (2.7-7.7); Neutrophil % 85.4 % (47-70); Platelet Count 164 K/mm3 (150-450); RBC Distribution Width CV 14.7 % (11.6-14.6); RBC Distribution Width SD 52.6 fl (35.1-43.9); Red Blood Count 2.73 M/mm3 (4.2-5.4); White Blood Count 17.8 K/mm3 (4.4-11.0)
[2021-08-13 06:50] LABS: Anion Gap 6 (5-15); BUN 44 mg/dL (7-18); BUN/Creat Ratio 11.8 RATIO (10-20); Calcium,Total 9.9 mg/dL (8.5-10.1); Chloride 118 mmol/L (98-107); Creatinine, Serum 3.74 mg/dL (0.55-1.02); EST Glomerular Filtration Rate 12 mL/min (>60); Est Glom Filt Rate - Afr Amer 15 mL/min (>60); Estimated Creatinine Clearance 10.26 ml/min; Glucose 101 mg/dL (74-106); Potassium 4.2 mmol/L (3.5-5.1); Sodium Level 140 mmol/L (136-145)
[2021-08-13] MEDS: 0.9% Normal Saline 1,000 ML 125 ML IV (06:56)
[2021-08-13 07:35] VITALS: BP 156/54; PULSE 82; RESP 18; TEMP 36.4; O2SAT 92
[2021-08-13 09:04] VITALS: BP 156/54; PULSE 82
[2021-08-13] MEDS: Metoprolol Tartrate 25 MG Tablet PO ×2 (09:04→21:04)
[2021-08-13] MEDS: Amiodarone 200 MG Tablet 100 MG PO (09:05)
[2021-08-13] MEDS: Heparin Injection (Vial) 5,000 UNIT/ML VIAL 5000 UNIT SC ×2 (09:05→21:03)
[2021-08-13] MEDS: Calcitriol 0.25 MCG Capsule PO (09:05)
[2021-08-13] MEDS: Aspirin 81 MG TAB.CHEW PO (09:05)
[2021-08-13] MEDS: Ferrous Sulfate 325 MG Tablet PO ×2 (09:05→17:07)
--- NOTE | 2021-08-13 10:13 | PCM.CONS.GEN ---
Assessment & Plan Assessment/Plan (1) Chronic renal insufficiency, stage IV (severe): (2) Pyelonephritis: PLAN: Ucx with desai-S PsA. On zosyn. Taken to OR 08/12/[address] Rivas for bilat stent change. Fever last. Would keep one more day, then plan on home with 7 days po cipro 500mg q24. QTC here was 461. Will follow, thank you, d/w Dr. Nunes HPI Consult Data Date of Consult: 08/13/21 HPI Narrative HPI Narrative: ERNESTO KATZ, is a 80 F who presented 08/11 with 4-5 days of fatigue, lower back soreness, n/v, fever, and chills. Similar sx to prior utis. Has bilateral ureteral stents in place due to long history of obstruction. Was started on keflex without improvement. Came to ED, admitted on zosyn, seen by urology, taken to OR 08/[address] Rivas for bilat stent change. Fever last night after the procedure, still feeling tired. No dysuria. Full ROS performed and neg except as noted above. [facility], [facility] Medical History Acute pyelonephritis Ambulates with cane Anemia Arthritis Atherosclerosis of coronary artery of [place] heart without angina pectoris Atrial fibrillation Coronary artery disease Easy bruising Edema Essential (primary) hypertension Heart disease History of renal dialysis HLD (hyperlipidemia) Hx of echocardiogram (~2015) Hydronephrosis due to obstruction of ureter Hyperparathyroidism due to renal insufficiency Hypertension Hypothyroidism Iron deficiency anemia Irregular heart beat Kidney disease Normochromic normocytic anemia Obstructive nephropathy Osteoarthritis Paroxysmal atrial fibrillation Post-menopausal Sepsis Stenosis of left carotid artery Thyroid disease Urinary tract infection Vitamin deficiency Wears glasses Home Medications aspirin 81 mg PO DAILY 05/01/16 [History Last Taken 01/10/21 07:00] ferrous sulfate 325 mg PO BID 01/11/19 [History Last Taken 07/06/20 05:00] acetaminophen 1,300 mg PO BID 04/05/19 [History Last Taken 07/06/20 05:00] calcitriol 0.25 mcg PO MOTUWETHFR 10/28/19 [History Last Taken 07/06/20 05:00] sodium bicarbonate 650 mg PO BID 12/15/19 [History Last Taken 07/06/20 05:00] amiodarone 100 mg PO DAILY 07/06/20 [History Last Taken 06/03/21] levothyroxine 75 mcg PO DAILY 10/09/20 [History Last Taken 06/03/21] ascorbic acid (vitamin C) 500 mg PO DAILY 01/08/21 [History Last Taken Unknown] metoprolol tartrate 25 mg tablet 25 mg PO BID #180 tab 02/12/21 [Rx Last Taken 06/03/21] clopidogrel 75 mg tablet 75 mg PO DAILY #90 tab 03/25/21 [Rx Last Taken Unknown] oxycodone-acetaminophen [Percocet] 1 tab PO Q8H PRN 3 Days #10 tab 06/03/21 [Rx Last Taken Unknown] Allergy/AdvReac Type Severity Reaction Status Date / Time lisinopril Allergy Hives Verified 08/11/21 10:18 Sulfa (Sulfonamide Allergy Hives Verified 08/11/21 10:18 Antibiotics) Family History Mother CVA (cerebral vascular accident) Hypertension Alcoholism Heart disease Father Heart disease Surgical History history Left brachial AV fistula creation (~04/11/19) History of coronary artery stent placement (10/09/08) History of left-sided carotid endarterectomy History of total abdominal hysterectomy and bilateral salpingo-oophorectomy History of ureter stent Hx of appendectomy Hx of bilateral cataract extraction Hx of cataract surgery Hx of cystoscopy Hx of hysterectomy (~2016) Social History Smoking Status: Never smoker alcohol intake: never substance use type: does not use Physical Exam Const alert, oriented x3 and no apparent distress General Appearance: cooperative Exam Limitations: no limitations HEENT normocephalic and head/scalp atraumatic Eyes PERRL and EOMs intact bilaterally Neck supple and No nodes Resp normal air movement and clear to auscultation bilaterally Cardio regular rate and regular rhythm Heart Sounds: murmur GI soft to palpation, non-tender and non-distended GI Narrative: no flank pain Extremity no clubbing, cyanosis or edema Skin no rashes or lesions noted Neuro CN's II-XII intact bilaterally Lab / Micro Data Result Diagrams: 08/13/21 06:13 08/13/21 06:13 Labs: Laboratory Results - last 24 hr 08/13/21 06:13: WBC 17.8 H, RBC 2.73 L, Hgb 8.6 L, Hct 26.9 L, MCV 98.5, MCH 31.5, MCHC 32.0, RDW Std Deviation 52.6 H, RDW Coeff of Lianet 14.7 H, Plt Count 164, MPV 8.9, Immature Gran % (Auto) 0.900, Neut % (Auto) 85.4 H, Lymph % (Auto) 8.1 L, [place] % (Auto) 5.2, Eos % (Auto) 0.1, Baso % (Auto) 0.3, Absolute Neuts (auto) 15.2 H, Absolute Lymphs (auto) 1.44, Nucleated RBC % 0 08/13/21 06:13: Sodium 140, Potassium 4.2, Chloride 118 H, Carbon Dioxide 16.0 L, Anion Gap 6, BUN 44 H, Creatinine 3.74 H, Estim Creat Clear Calc 10.26, Est GFR (MDRD) Af Amer 15 L, Est GFR (MDRD) Non-Af 12 L, BUN/Creatinine Ratio 11.8, Glucose 101, Calcium 9.9 Micro: Microbiology 08/11/21 11:35 Urine, Clean Catch Urine Culture - Final Pseudomonas aeroginosa
--- NOTE | 2021-08-13 11:28 | PN.HOSP_ITS ---
Documented by User: Rafa LEMUS 08/13/21 11:36 Subjective Subjective Patient is a 80-year-old female comfortably resting in bed, alert and oriented x3. Denies development of any new symptoms overnight. Does not appear in acute distress. Objective Data Objective Data Vital Signs: Vital Signs Temp Pulse Resp BP Pulse Ox 97.6 F L 82 18 156/54 H 92 08/13/21 07:35 08/13/21 09:04 08/13/21 07:35 08/13/21 09:04 08/13/21 07:35 Oxygen Delivery Method Room Air Weight: 134 lb Body Mass Index (BMI) 23.7 Intake & Output: Intake and Output for Last 24 Hours 08/11/21 08/12/21 08/13/21 23:59 23:59 23:59 Intake Total 2041.67 / 2341.67 3433.32 / 3433.32 1458.33 / 1458.33 Output Total 150 / 150 Balance 2041.67 / 2341.67 3283.32 / 3283.32 1458.33 / 1458.33 Lab / Micro Data Result Diagrams: 08/13/21 06:13 08/13/21 06:13 Labs: Laboratory Results - last 24 hr 08/13/21 06:13: WBC 17.8 H, RBC 2.73 L, Hgb 8.6 L, Hct 26.9 L, MCV 98.5, MCH 31.5, MCHC 32.0, RDW Std Deviation 52.6 H, RDW Coeff of Lianet 14.7 H, Plt Count 164, MPV 8.9, Immature Gran % (Auto) 0.900, Neut % (Auto) 85.4 H, Lymph % (Auto) 8.1 L, [place] % (Auto) 5.2, Eos % (Auto) 0.1, Baso % (Auto) 0.3, Absolute Neuts (auto) 15.2 H, Absolute Lymphs (auto) 1.44, Nucleated RBC % 0 08/13/21 06:13: Sodium 140, Potassium 4.2, Chloride 118 H, Carbon Dioxide 16.0 L , Anion Gap 6, BUN 44 H, Creatinine 3.74 H, Estim Creat Clear Calc 10.26, Est GFR (MDRD) Af Amer 15 L, Est GFR (MDRD) Non-Af 12 L, BUN/Creatinine Ratio 11.8, Glucose 101, Calcium 9.9 Micro: Microbiology 08/11/21 11:35 Urine, Clean Catch Urine Culture - Final Pseudomonas aeroginosa Physical Exam Const alert, oriented x3 and no apparent distress HEENT head/scalp atraumatic and moist oral mucous membranes Head and Scalp: normocephalic Eyes PERRL and conjunctivae normal Neck no lymphadenopathy, supple and no JVD Resp normal respiratory effort, no retractions and no use of accessory muscles Cardio regular rate, regular rhythm and no JVD GI normal to inspection, nondistended, normoactive bowel sounds Extremity normal to inspection Skin no rashes or lesions noted Neuro CN's II-XII intact bilaterally Psych affect normal Assessment & Plan Assessment/Plan (1) Pyelonephritis: (2) Urinary tract infection: (3) Leukocytosis: (4) Hydronephrosis: PLAN: Day 2 Discharge planning: Current plan is for patient to discharge home when medically ready. 1) suspected pyelonephritis/Leukocytosis Urine culture with Psuedomonas with sensitivities to Zosyn. Vital signs are stable, although patient is still with a elevated white count at 17,000 which is worse than yesterday. Unclear at this time if white count is reactionary from surgery yesterday or if infection is not properly responding to antibiotics. ID consulted, recommendations are to continue with admission and IV Zosyn and transition to ciprofloxacin on discharge. Blood cultures pending. 2) severe bilateral hydronephrosis POD 1 s/p cystoscopy with bilateral ureteral stent change. Management per urology. 3) CKD stage V Stable, creatinine is 3.74 and at baseline. Patient does follow with college archivist Dr. Barrientos and does have a AV fistula placed in her left arm. Will monitor kidney function and consult nephrology if worsening kidney function. 4) HTN Continue metoprolol and amlodipine. 5) CAD status post stent Continue aspirin, and Plavix 6) iron deficiency anemia Hemoglobin is 8.1, which is down from patient baseline at 10. We will continue to monitor and will transfuse if hemoglobin falls below 7. 7) paroxysmal atrial fibrillation Heart rate is currently controlled. Continue amiodarone and metoprolol. DVT prophylaxis - Heparin. Patient seen by Rafa Alvares PA-C, under the supervision of Dr. Nunes. Time spent on patient care: 10 minutes. Documented by User: Dr. Brett Nunes DO 08/13/21 17:59 Objective Data Lab / Micro Data Result Diagrams: 08/13/21 06:13 08/13/21 06:13 Charges/Coding Addendum Addendum: Patient was seen and examined today independently of Rafa Alvares, her white blood cell count was elevated at 17.8 today, hemoglobin was 8.6, patient's creatinine was 3.74 and BUN was 44. I had infectious diseases see the patient today because she was positive in her urine for Pseudomonas. It is susceptible to quinolones and Zosyn, patient stated that she felt tired today and did not feel she is ready to go home. On examination she appeared in good health and spirits, she does not appear to be in any distress. Vital signs as documented. Skin warm and dry and without overt rashes. Neck without JVD, thyroid appears normal, trachea is midline, neck is supple. Lungs clear, normal air movement was noted. Heart exam notable for regular rhythm, there is a 2/6 systolic murmur noted at the left sternal border and apex, there is 1/6 systolic murmur noted at the right sternal border, no rubs or gallops were noted. Abdomen unremarkable and without evidence of organomegaly, masses, or abdominal aortic enlargement, bowel sounds are present in all 4 quadrants, no abdominal tenderness was noted. Extremities nonedematous, no cyanosis was noted, no clubbing was noted. Neuro: Cranial nerves II through XII are grossly intact, no focal motor deficits were noted, sensation to light touch and pinprick is intact, motor exam 5/5 throughout. Psych: Patient is alert and oriented x3, she does not appear anxious or depressed, she does not appear agitated. #1 acute pyelonephritis-secondary to Pseudomonas-continue present antibiotic coverage, patient will be discharged home on Cipro 500 mg daily for 7 days #2 bilateral hydronephrosis secondary to obstructive uropathy-patient will have her stents changed by urology today #3 stage V chronic kidney disease-patient will be given IV fluids tonight, labs will be rechecked tomorrow #4 atherosclerotic heart disease-this appears stable at this time #5 essential hypertension-patient will remain on her current blood pressure med ication #6 paroxysmal atrial fibrillation-patient is currently on amiodarone, this will be continued #7 valvular heart disease-patient has a murmur primarily over her left sternal border and apex as well as right sternal border, this may be indicative of mitral valve regurg, I do not feel the patient needs an echo at this time. #8 iron deficiency anemia-patient is currently on ferrous sulfate, this will be continued, CBC will be repeated tomorrow I have reviewed Rafa Alvares's progress note including his medical assessment and plan of care and endorse it. Total clinical time spent by myself addressing the patient's medical issues, reviewing her medical record, and collaborating with the patient's care team: 20 minutes Visit Charges Inpatient E&M: 40262 Subs Hosp L2
[2021-08-13 15:45] VITALS: BP 149/59; PULSE 71; RESP 18; TEMP 36.6; O2SAT 92
[2021-08-13] MEDS: 0.9% Saline Lock 10 ML Syringe IV (20:59)
[2021-08-13 21:00] VITALS: BP 162/60; PULSE 73; RESP 18; TEMP 36.9; O2SAT 92
[2021-08-13 21:04] VITALS: BP 162/60; PULSE 73
[2021-08-14 03:00] VITALS: BP 146/57; PULSE 75; RESP 16; TEMP 36.4; O2SAT 95
[2021-08-14 05:58] LABS: Absolute Lymphocyte Count 1.45 X10^3/uL (0.83-4.51); Absolute Neutrophil Count 8.9 X10^3/uL (2.0-7.7); Basophil# 0.07 X10^3/uL; Basophil% 0.6 % (0-1); Eosinophil# 0.13 X10^3/uL; Eosinophils% 1.1 % (0-5); Hematocrit 26.1 % (37-47); Hemoglobin 8.2 g/dL (12.0-15.0); Lymphocyte # 1.45 X10^3/ul (0.83-4.51); Lymphocyte % 12.8 % (19-41); Mean Corp Hgb Conc 31.4 g/dL (32-36); Mean Corpuscular Hgb 31.3 pg (27.0-32.0); Mean Corpuscular Volume 99.6 fL (81-99); Monocyte# 0.64 X10^3/uL; Monocyte% 5.6 % (0-10); NRBC Flagged by Analyzer 0 % (0-5); Neutrophil # 8.94 X10^3/uL (2.7-7.7); Neutrophil % 78.8 % (47-70); Platelet Count 212 K/mm3 (150-450); RBC Distribution Width CV 14.7 % (11.6-14.6); RBC Distribution Width SD 53.1 fl (35.1-43.9); Red Blood Count 2.62 M/mm3 (4.2-5.4); White Blood Count 11.4 K/mm3 (4.4-11.0)
[2021-08-14] MEDS: Levothyroxine 75 MCG Tablet PO (06:02)
[2021-08-14 06:22] LABS: Anion Gap 8 (5-15); BUN 46 mg/dL (7-18); BUN/Creat Ratio 13.3 RATIO (10-20); Calcium,Total 9.3 mg/dL (8.5-10.1); Chloride 115 mmol/L (98-107); Creatinine, Serum 3.47 mg/dL (0.55-1.02); EST Glomerular Filtration Rate 14 mL/min (>60); Est Glom Filt Rate - Afr Amer 16 mL/min (>60); Estimated Creatinine Clearance 11.05 ml/min; Glucose 85 mg/dL (74-106); Potassium 4.1 mmol/L (3.5-5.1); Sodium Level 140 mmol/L (136-145)
[2021-08-14 07:43] VITALS: BP 152/52; PULSE 69; RESP 18; TEMP 36.6; O2SAT 93
[2021-08-14] MEDS: Ferrous Sulfate 325 MG Tablet PO (07:47)
[2021-08-14] MEDS: Aspirin 81 MG TAB.CHEW PO (07:47)
[2021-08-14] MEDS: Amiodarone 200 MG Tablet 100 MG PO (10:04)
[2021-08-14] MEDS: Calcitriol 0.25 MCG Capsule PO (10:04)
[2021-08-14 10:05] VITALS: PULSE 68
[2021-08-14] MEDS: Metoprolol Tartrate 25 MG Tablet PO (10:05)
[2021-08-14] MEDS: Heparin Injection (Vial) 5,000 UNIT/ML VIAL 5000 UNIT SC (10:05)
[2021-08-14] MEDS: 0.9% Saline Lock 10 ML Syringe IV (10:07)
--- NOTE | 2021-08-14 10:35 | PCM.DC ---
Discharge Instructions Diet Discharge Diet: No restrictions Activity Discharge Activity: Return to Normal Activity Weight Bearing Status: Weight bearing as tolerated Dressing / Incision Call your doctor if you observe: Fever of 101 or Higher, Numbness or Tingling, Shortness of breath, Dizziness, Chest pain, Increased palpitations (irregular heartbeat) and Calf discomfort Follow Up Care Please Follow Up With: Primary care provider When: Within the next two weeks. Test Results: Test results from this visit will be discussed in further detail at your follow-up appointment, if applicable. Discharge Plan Admission Admit Date/Time: 08/11/21 14:13 Primary Reason for Your Visit: Fatigue Attending Provider: Jade Barrientos Primary Care Provider: Brett Flores Consulting Providers: Melissa Rivas ; Antonio Miller Discharge Orders/Prescriptions Prescriptions: New ciprofloxacin HCl [Cipro] 500 mg tablet 500 mg PO DAILY Qty: 7 RF: 0 Continued aspirin 81 MG tablet,chewable 81 mg PO DAILY RF: 0 ferrous sulfate 325 MG tablet 325 mg PO BID RF: 0 acetaminophen 650 MG tablet extended release 1,300 mg PO BID RF: 0 calcitriol 0.25 MCG capsule 0.25 mcg PO MOTUWETHFR RF: 0 sodium bicarbonate 650 MG tablet 650 mg PO BID RF: 0 amiodarone 100 MG tablet 100 mg PO DAILY RF: 0 levothyroxine 75 mcg Capsule 75 mcg PO DAILY RF: 0 ascorbic acid (vitamin C) 500 mg Tablet 500 mg PO DAILY RF: 0 oxycodone-acetaminophen [Percocet] 5-325 mg tablet 1 tab PO Q8H PRN (Reason: pain) 3 Days Qty: 10 RF: 0 metoprolol tartrate 25 mg tablet 25 mg PO BID Qty: 180 RF: 3 clopidogrel 75 mg tablet 75 mg PO DAILY Qty: 90 RF: 3 Referrals / Follow Up: Brett Flores DO [Primary Care Provider] - Within 2 Weeks Melissa Rivas MD [STAFF PHYSICIAN] - Within 2 Weeks Disposition Disposition (needs filled in before D/C Order can be placed): Home, Self Care
--- NOTE | 2021-08-14 11:50 | DS.PCM_ITS ---
Documented by User: Rafa LEMUS 08/14/21 12:02 Providers Date of Admission: 08/11/21 Date of Discharge: 08/14/21 Primary Care Physician: Dr. Brett Flores, Consultations 08/11/21 15:20 Consult: Urology Routine Consulting Provider: Melissa Rivas Reason for Consult: obstructive uropathy EMERGENT Consult: No MD Notified: Yes Date Notified: 08/11/21 Time Notified: 14:00 Method of Notification: Verbal 08/13/21 07:42 Consult: Infectious Disease Routine Consulting Provider: Antonio Miller Reason for Consult: psudomonas uti, elevated WBC EMERGENT Consult: No MD Notified: Yes Date Notified: 08/13/21 Time Notified: 07:43 Method of Notification: Verbal Reason For Visit: PYELONEPHRITIS Diagnosis Discharge Diagnosis (1) Pyelonephritis: Status: Acute Code(s): N12 - Tubulo-interstitial nephritis, not specified as acute or chronic (2) Urinary tract infection: Status: Acute Code(s): N39.0 - Urinary tract infection, site not specified (3) Leukocytosis: Status: Acute Code(s): D72.829 - Elevated white blood cell count, unspecified (4) Hydronephrosis: Status: Acute Code(s): N13.30 - Unspecified hydronephrosis Medications at Discharge Home Medications aspirin 81 mg PO DAILY 05/01/16 ferrous sulfate 325 mg PO BID 01/11/19 acetaminophen 1,300 mg PO BID 04/05/19 calcitriol 0.25 mcg PO MOTUWETHFR 10/28/19 sodium bicarbonate 650 mg PO BID 12/15/19 amiodarone 100 mg PO DAILY 07/06/20 levothyroxine 75 mcg PO DAILY 10/09/20 ascorbic acid (vitamin C) 500 mg PO DAILY 01/08/21 metoprolol tartrate 25 mg tablet 25 mg PO BID #180 tab 02/12/21 clopidogrel 75 mg tablet 75 mg PO DAILY #90 tab 03/25/21 oxycodone-acetaminophen [Percocet] 1 tab PO Q8H PRN 3 Days #10 tab 06/03/21 ciprofloxacin HCl [Cipro] 500 mg PO DAILY #7 tab 08/14/21 Hospital Course Summary of Care Provided Minutes Spent on Discharge: 20 Hospital Course: Patient is a 80-year-old female who was admitted to [facility] on 08/11/2021 for evaluation and management of pyelonephritis with severe bilateral hydronephrosis. Course and management as below. 1)pyelonephritis Urine culture with Psuedomonas with sensitivities to Zosyn. Leukocytosis has greatly improved from yesterday as is currently 11,000. ID consulted, recommendations are to continue with admission and IV Zosyn and transition to ciprofloxacin on discharge. Blood cultures demonstrate no growth. We will continue ciprofloxacin 500 mg p.o. daily for 7 days on discharge. 2) severe bilateral hydronephrosis POD 2 s/p cystoscopy with bilateral ureteral stent change. Management per urology. Patient to follow-up with Dr. Jim within the next 2 weeks. 3) CKD stage V Stable, creatinine is 3.47 and at baseline. Patient does follow with band tumbler Dr. Barrientos and does have a AV fistula placed in her left arm. 4) HTN Continue metoprolol and amlodipine. 5) CAD status post stent Continue aspirin, and Plavix 6) iron deficiency anemia Hemoglobin is 8.2, which is down from patient baseline at 10. Continue iron supplementation. 7) paroxysmal atrial fibrillation Heart rate is currently controlled. Continue amiodarone and metoprolol. Patient seen by Rafa Alvares PA-C, under the supervision of Dr. Barrientos. Time spent on patient care: 20 minutes. Physical Exam Narrative Patient is a 80-year-old female comfortably resting in bed, alert and orient x3. Patient denies development of any new symptoms overnight. Does not appear in acute distress. Const alert, oriented x3 and no apparent distress HEENT normocephalic, head/scalp atraumatic and hearing grossly normal bilaterally Eyes PERRL and conjunctivae normal Neck no lymphadenopathy, supple and no JVD Resp normal respiratory effort, no retractions and no use of accessory muscles Cardio regular rate, regular rhythm and no JVD GI normal to inspection, nondistended, normoactive bowel sounds Extremity normal to inspection Skin no rashes or lesions noted Neuro CN's II-XII intact bilaterally Psych affect normal Weight / BMI Weight Weight: 134 lb Body Mass Index (BMI) 23.7 ABG / Lab / Microbiology Data Result Diagrams: 08/14/21 05:49 08/14/21 05:49 Laboratory: Laboratory Results - last 24 hr 08/14/21 05:49: WBC 11.4 H, RBC 2.62 L, Hgb 8.2 L, Hct 26.1 L, MCV 99.6 H, MCH 31.3, MCHC 31.4 L, RDW Std Deviation 53.1 H, RDW Coeff of Lianet 14.7 H, Plt Count 212, MPV 9.0, Immature Gran % (Auto) 1.100 H, Neut % (Auto) 78.8 H, Lymph % (Auto) 12.8 L, [place] % (Auto) 5.6, Eos % (Auto) 1.1, Baso % (Auto) 0.6, Absolute Neuts (auto) 8.9 H, Absolute Lymphs (auto) 1.45, Nucleated RBC % 0 08/14/21 05:49: Sodium 140, Potassium 4.1, Chloride 115 H, Carbon Dioxide 17.0 L , Anion Gap 8, BUN 46 H, Creatinine 3.47 H, Estim Creat Clear Calc 11.05, Est GFR (MDRD) Af Amer 16 L, Est GFR (MDRD) Non-Af 14 L, BUN/Creatinine Ratio 13.3, Glucose 85, Calcium 9.3 Microbiology: Microbiology 08/11/21 11:35 Urine, Clean Catch Urine Culture - Final Pseudomonas aeroginosa D/C Instructions Discharge Diet: No restrictions Weight Bearing Status: Weight bearing as tolerated Call your doctor if you observe: Fever of 101 or Higher, Numbness or Tingling, Shortness of breath, Dizziness, Chest pain, Increased palpitations (irregular heartbeat) and Calf discomfort Please Follow Up With: Primary care provider When: Within the next two weeks. Meaningful Use Info Meaningful Use Diagnoses (Choose all that apply): None applicable Discharge Plan Admission Admit Date/Time: 08/11/21 14:13 Primary Reason for Your Visit: Fatigue Attending Provider: Jade Barrientos Primary Care Provider: Brett Flores Consulting Providers: Melissa Rivas ; Antonio Miller Discharge Orders/Prescriptions Prescriptions: New ciprofloxacin HCl [Cipro] 500 mg tablet 500 mg PO DAILY Qty: 7 RF: 0 Continued aspirin 81 MG tablet,chewable 81 mg PO DAILY RF: 0 ferrous sulfate 325 MG tablet 325 mg PO BID RF: 0 acetaminophen 650 MG tablet extended release 1,300 mg PO BID RF: 0 calcitriol 0.25 MCG capsule 0.25 mcg PO MOTUWETHFR RF: 0 sodium bicarbonate 650 MG tablet 650 mg PO BID RF: 0 amiodarone 100 MG tablet 100 mg PO DAILY RF: 0 levothyroxine 75 mcg Capsule 75 mcg PO DAILY RF: 0 ascorbic acid (vitamin C) 500 mg Tablet 500 mg PO DAILY RF: 0 oxycodone-acetaminophen [Percocet] 5-325 mg tablet 1 tab PO Q8H PRN (Reason: pain) 3 Days Qty: 10 RF: 0 metoprolol tartrate 25 mg tablet 25 mg PO BID Qty: 180 RF: 3 clopidogrel 75 mg tablet 75 mg PO DAILY Qty: 90 RF: 3 Referrals / Follow Up: Melissa Rivas MD [STAFF PHYSICIAN] - Within 2 Weeks Brett Flores DO [Primary Care Provider] - Within 2 Weeks Disposition Disposition (needs filled in before D/C Order can be placed): Home, Self Care Documented by User: Dr. Jade Barrientos DO 08/14/21 12:19 Providers Date of Admission: 08/11/21 Reason For Visit: PYELONEPHRITIS Medications at Discharge Home Medications aspirin 81 mg PO DAILY 05/01/16 ferrous sulfate 325 mg PO BID 01/11/19 acetaminophen 1,300 mg PO BID 04/05/19 calcitriol 0.25 mcg PO MOTUWETHFR 10/28/19 sodium bicarbonate 650 mg PO BID 12/15/19 amiodarone 100 mg PO DAILY 07/06/20 levothyroxine 75 mcg PO DAILY 10/09/20 ascorbic acid (vitamin C) 500 mg PO DAILY 01/08/21 metoprolol tartrate 25 mg tablet 25 mg PO BID #180 tab 02/12/21 clopidogrel 75 mg tablet 75 mg PO DAILY #90 tab 03/25/21 oxycodone-acetaminophen [Percocet] 1 tab PO Q8H PRN 3 Days #10 tab 06/03/21 ciprofloxacin HCl [Cipro] 500 mg PO DAILY #7 tab 08/14/21 Hospital Course Operations - (Cystoscopy with bilateral ureteral stent change) Procedures EKG Summary of Care Provided Minutes Spent on Discharge: 38 Hospital Course: Mrs. Zaidi is a 80-year-old white female who presented to emergency department [facility] on 08/11/2021 with a chief complaint of fatigue. Upon presentation the patient reported that over the past 10 days prior to admission she had been experiencing progressively worsening fatigue and is sleeping much more than usual. She stated that when she typically notices this happening it means she has a urinary tract infection. She indicated on admission she was sleeping 20+ hours a day which was very atypical for her. On presentation she reported subjective fevers and chills with nausea and vomiting but had no diarrhea. She denied any urinary frequency, incontinence, or flank pain. She has had frequent UTIs previously and follows with urology at Dr. Rivas's office. She does have the presence of bilateral ureteral stent on presentation. On admission her vital signs were stable but her CBC showed an elevated white count with a stable anemia and a normal platelet count. Her BMP also showed a mild hyponatremia with stable serum BUN and creatinine elevations. Her UA was consistent with infection and a CT of her abdomen and pelvis was performed and showed severe bilateral hydronephrosis and hydroureter. She was admitted to the hospital and placed on IV antibiotics. Dr. Rivas was consulted and subsequently took the patient to the operating room on 08/12/2021 for cystoscopy and bilateral ureteral stent change. Her urine culture showed a pansensitive Pseudomonas and her blood cultures were pending at discharge. She was evaluated by infectious disease and they recommended completing a course of antibiotics with 7 days of Cipro which would cover her indicates that she had bacteremia as well. She was written for prescription for Cipro 500 mg daily for 7 days. The daily dosing was utilized given her renal function at baseline. QTC was evaluated prior to discharge given her history and the fact that she is on amiodarone and was found to be 461. She is to follow-up with her primary care physician within the next 2 weeks as well as Dr[address] Rivas in the next 2 weeks. Discharge diagnoses: Bilateral hydronephrosis Pyelonephritis Complicated pseudomonal urinary tract infection CKD stage IV PAF Chronic anemia secondary to renal disease CAD HTN HPL Hypothyroidism OA History of left carotid artery stenosis Physical Exam Const alert, oriented x3, no apparent distress, average body habitus, no limitations, healthy appearing and well nourished Constitutional Narrative: Very pleasant older white female sitting up in bed, appears comfortable nontoxic, states she is anxious to go home and feeling well. General Appearance: cooperative, comfortable, well kempt and well developed Orientation / Consciousness: awake Exam Limitations: no limitations HEENT normocephalic, head/scalp atraumatic, hearing grossly normal bilaterally and moist oral mucous membranes HEENT Narrative: Mallampati is 2, no thrush Eyes PERRL and EOMs intact bilaterally Eyes Narrative: Mildly pale conjunctiva bilaterally Neck no lymphadenopathy, supple, no JVD and no carotid bruits Neck Narrative: Trachea midline, no thyroid enlargement Resp normal respiratory effort, no retractions, no use of accessory muscles and clear to auscultation bilaterally Auscultation: Negative for crackles, rales, rhonchi or wheezes Cardio regular rate, regular rhythm, S1 normal heart sound, S2 normal heart sound, no rub, no gallops, no clicks and no JVD; Negative for no murmurs Cardio Narrative: 2 out of 6 systolic murmur GI normal to inspection, nondistended, normoactive bowel sounds, soft to palpation, non-tender and non-distended Extremity no clubbing, cyanosis or edema Skin no rashes or lesions noted, no wounds, skin turgor normal and no jaundice Neuro oriented x3, CN's II-XII intact bilaterally, moves all extremities and no focal motor deficits Sensorium / Orientation: awake and alert Speech: speech normal Psych affect normal ABG / Lab / Microbiology Data Result Diagrams: 08/14/21 05:49 08/14/21 05:49 Discharge Plan Admission Admit Date/Time: 08/11/21 14:13 Primary Reason for Your Visit: Fatigue Attending Provider: Jade Barrientos Primary Care Provider: Brett Flores Consulting Providers: Melissa Rivas ; Antonio Miller Discharge Orders/Prescriptions Prescriptions: New ciprofloxacin HCl [Cipro] 500 mg tablet 500 mg PO DAILY Qty: 7 RF: 0 Continued aspirin 81 MG tablet,chewable 81 mg PO DAILY RF: 0 ferrous sulfate 325 MG tablet 325 mg PO BID RF: 0 acetaminophen 650 MG tablet extended release 1,300 mg PO BID RF: 0 calcitriol 0.25 MCG capsule 0.25 mcg PO MOTUWETHFR RF: 0 sodium bicarbonate 650 MG tablet 650 mg PO BID RF: 0 amiodarone 100 MG tablet 100 mg PO DAILY RF: 0 levothyroxine 75 mcg Capsule 75 mcg PO DAILY RF: 0 ascorbic acid (vitamin C) 500 mg Tablet 500 mg PO DAILY RF: 0 oxycodone-acetaminophen [Percocet] 5-325 mg tablet 1 tab PO Q8H PRN (Reason: pain) 3 Days Qty: 10 RF: 0 metoprolol tartrate 25 mg tablet 25 mg PO BID Qty: 180 RF: 3 clopidogrel 75 mg tablet 75 mg PO DAILY Qty: 90 RF: 3 Referrals / Follow Up: Melissa Rivas MD [STAFF PHYSICIAN] - Within 2 Weeks Brett Flores DO [Primary Care Provider] - Within 2 Weeks Disposition Disposition (needs filled in before D/C Order can be placed): Home, Self Care Charges/Coding Visit Charges Inpatient E&M: 72404 Disch Hosp
--- NOTE | 2021-08-14 12:48 | CHAPLAIN ---
Type of Pastoral Visit _x__ Initial Visit ___ Follow-up Visit ___ On-call Visit ___ General Patient Visit ___ Spiritual Assessment ___ Family Conference ___ Bereavement ___ Rapid Response ___ Code Blue ___ Other (describe below) Pastoral Care Referral From _x__ Patient ___ Family ___ Nurse ___ Physician ___ Sawmill Hand ___ Core Java Engineer ___ Other (describe below) Sacrament/Intervention _x__ Active listening ___ Anointing ___ Spiritism ___ Bereavement ___ Communion ___ Soco exploration ___ ___ Life review ___ Prayer ___ Reconciliation ___ Sacrament of Sick ___ Supportive presence ___ Wedding ___ Other (describe below) Pastoral Comments patient states she is feeling better and optimistic that procedures will work; pt says she has been sleepy and will continue to rest; no other needs
[2021-08-14 13:15] VITALS: BP 164/47; PULSE 64; RESP 18; TEMP 36.6; O2SAT 94
--- NOTE | 2021-08-14 13:50 | PCM.PN.ID ---
Physical Exam Narrative Feeling better, home today. Less tired, no fever, no abd pain Const alert and no apparent distress General Appearance: cooperative Resp normal air movement and clear to auscultation bilaterally Cardio regular rate and regular rhythm GI soft to palpation, non-tender and non-distended Skin no rashes or lesions noted ID ID: Route of nutrition/ use of supplements: [] Nutritional Intake: [] IV Site: [] Lau Catheter: [] Assessment & Plan Assessment/Plan (1) Chronic renal insufficiency, stage IV (severe): (2) Pyelonephritis: PLAN: Ucx with desai-S PsA. On zosyn. Taken to OR 08/12/[address] Rivas for bilat stent change. Fever resolved. Ok for home with 7 days po cipro 500mg q24. QTC here was 461. Will follow as needed
== END 2021-08-14 15:30 | disposition home or self-care (01) | DRG 660 ==
LOC: ED 14:03 → MS3 14:16
PROVIDERS: Anesthesiology; Physician Assistant; Urology; Admitting Provider Internal Medicine; Emergency Provider Emergency Medicine; PCP Family Medicine; Visit Provider Internal Medicine
PROC: 0T788DZ Dilation of Bilateral Ureters with Intraluminal Device, Via Natural or Artificial Opening Endoscopic (ICD-10-PCS; principal; 2021-08-12 17:20)
DX: N13.6 Pyonephrosis (principal); I12.0 Hypertensive chronic kidney disease with stage 5 chronic kidney disease or end stage renal disease; E87.1 Hypo-osmolality and hyponatremia; D63.1 Anemia in chronic kidney disease; I48.0 Paroxysmal atrial fibrillation; N18.5 Chronic kidney disease, stage 5; D50.9 Iron deficiency anemia, unspecified; E78.5 Hyperlipidemia, unspecified; I25.10 Atherosclerotic heart disease of native coronary artery without angina pectoris; E03.9 Hypothyroidism, unspecified; M19.90 Unspecified osteoarthritis, unspecified site; B95.3 Streptococcus pneumoniae as the cause of diseases classified elsewhere; I65.22 Occlusion and stenosis of left carotid artery; I34.8 Other nonrheumatic mitral valve disorders; Z96.0 Presence of urogenital implants; Z95.5 Presence of coronary angioplasty implant and graft; Z66 Do not resuscitate; Z79.02 Long term (current) use of antithrombotics/antiplatelets; Z79.82 Long term (current) use of aspirin; Z79.899 Other long term (current) drug therapy; Z87.440 Personal history of urinary (tract) infections
CPT/HCPCS: 36415; 74176; 76000; 80048; 80053; 80076; 81001; 83690; 84443; 85025; 85610; 85730; 87040; 87077; 87086; 87088; 87186; 93005; 97802; 99283; J7030; A4216; C2617; J2405

== ENCOUNTER 2021-11-14 11:35 | Day surgery (SDC) | payer MEDICARE, SELFPAY ==
--- NOTE | 2021-11-14 07:49 | PCM.OPRPT ---
Problems Associated Problem List Diagnoses (1) Bilateral ureteral obstruction: (2) Chronic kidney disease, stage 5: Report of Operation Date of Procedure: 11/14/21 Pre-Operative Diagnosis: Bilateral ureteral obstruction with chronic kidney disease Post-Operative Diagnosis: Same Surgery/Procedure Performed:: Cystoscopy with bilateral ureteral stent change Surgeon: Melissa Rivas Type of Anesthesia: MAC Description of Procedure: The patient is a 81-year-old female with bilateral ureteral obstruction requiring intervention along with chronic kidney disease. She now presents for routine ureteral stent change. Informed consent was obtained. The patient was taken to the operating room and placed on the operating room table. Anesthesia monitored the head, neck, airway, IV access and vital signs throughout the case. Once anesthesia was appropriate ministered the patient was placed into dorsolithotomy position was prepped and draped in usual sterile fashion. The cystoscope was inserted through the urethra under direct visualization into the urinary bladder. Bilateral ureteral stents were identified. The cystoscope was used to insert a 0.035 Glidewire alongside the right ureteral stent which was then removed with graspers. A new 6 x 24 JJ stent was placed over the wire with good positioning in the renal pelvis as well as the urinary bladder. The same process was then repeated on the patient's left side without complication. The patient's bladder was then emptied and she was awakened and taken to the recovery room in good condition. There were no complications during this procedure. Grafts/Implants Used: 6x24 JJ stent x2 Complications None Admit VTE Documentation VTE Present on Admission: Yes VTE Mechan Device Prophylaxis: SCD's VTE Pharm Prophylaxis ordered?: Yes Reason prophylaxis not ordered:: Treatment Not Indicated
--- NOTE | 2021-11-14 07:53 | PCM.DC ---
Discharge Instructions Diet Discharge Diet: No restrictions Activity Discharge Activity: Return to Normal Activity Dressing / Incision Call your doctor if you observe: Fever of 101 or Higher, Inability to urinate and Inability to have a bowel movement Follow Up Care Please Follow Up With: Melissa Rivas MD When: 6 weeks in the office, call for appt Test Results: Test results from this visit will be discussed in further detail at your follow-up appointment, if applicable. Discharge Plan Admission Attending Provider: Melissa Rivas Primary Care Provider: Brett Flores Discharge Orders/Prescriptions Prescriptions: New cephalexin [cephalexin] 500 MG capsule 500 mg PO Q12 3 Days Qty: 6 RF: 0 cephalexin 250 mg capsule 250 mg PO Q8H Qty: 15 RF: 0 Continued aspirin 81 MG tablet,chewable 81 mg PO DAILY RF: 0 ferrous sulfate 325 MG tablet 325 mg PO BID RF: 0 acetaminophen 650 MG tablet extended release 1,300 mg PO BID RF: 0 calcitriol 0.25 MCG capsule 0.25 mcg PO MOTUWETHFR RF: 0 sodium bicarbonate 650 MG tablet 650 mg PO BID RF: 0 amiodarone 100 MG tablet 100 mg PO DAILY RF: 0 levothyroxine 75 mcg Capsule 75 mcg PO DAILY RF: 0 ascorbic acid (vitamin C) 500 mg Tablet 500 mg PO DAILY RF: 0 metoprolol tartrate 25 mg tablet 25 mg PO BID Qty: 180 RF: 3 clopidogrel 75 mg tablet 75 mg PO DAILY Qty: 90 RF: 3 Referrals / Follow Up: Brett Flores DO [Primary Care Provider] - Disposition Disposition (needs filled in before D/C Order can be placed): Home, Self Care
[2021-11-14 12:04] VITALS: BP 171/60; PULSE 57; RESP 18; TEMP 35.9; O2SAT 98; BMI 23.6
[2021-11-14] MEDS: Lidocaine Jelly 2% 20 ML Syringe (URO-JET) 1 APPLIC (13:18)
[2021-11-14 13:37] VITALS: BP 139/57; BP 171/60; PULSE 56; RESP 16; TEMP 36.2; O2SAT 100
[2021-11-14 13:45] VITALS: BP 169/57; BP 171/60; PULSE 55; RESP 16; O2SAT 97
[2021-11-14 14:00] VITALS: BP 171/60; BP 175/60; PULSE 57; RESP 16; TEMP 36.5; O2SAT 98
[2021-11-14 14:46] VITALS: BP 171/60
== END 2021-11-14 14:53 | disposition home or self-care (01) ==
LOC: SDC 11:36 → AC 11:37
PROVIDERS: PCP Family Medicine; Referring Provider Urology; Visit Provider Urology
PROC: (CPT 52332; principal; 2021-11-14 12:45)
DX: N13.1 Hydronephrosis with ureteral stricture, not elsewhere classified (principal); N18.5 Chronic kidney disease, stage 5; I12.0 Hypertensive chronic kidney disease with stage 5 chronic kidney disease or end stage renal disease; I48.0 Paroxysmal atrial fibrillation; I25.10 Atherosclerotic heart disease of native coronary artery without angina pectoris; M19.90 Unspecified osteoarthritis, unspecified site; E03.9 Hypothyroidism, unspecified; Z79.899 Other long term (current) drug therapy; Z79.02 Long term (current) use of antithrombotics/antiplatelets; Z79.890 Hormone replacement therapy; N39.41 Urge incontinence; Z87.440 Personal history of urinary (tract) infections; R35.1 Nocturia
CPT/HCPCS: 52332; 00910; 76000; J7120; C2617; C2625; J2405

== ENCOUNTER → 2021-12-12 | Outpatient (CLI) | payer MEDICARE, SELFPAY ==
[2021-12-12 11:49] LABS: Hematocrit 30.6 % (37-47); Hemoglobin 9.7 g/dL (12.0-15.0); Mean Corp Hgb Conc 31.7 g/dL (32-36); Mean Corpuscular Hgb 32.4 pg (27.0-32.0); Mean Corpuscular Volume 102.3 fL (81-99); Mean Platelet Vol. 8.9 fl (6.2-12.0); Platelet Count 253 K/mm3 (150-450); RBC Distribution Width CV 14.1 % (11.6-14.6); RBC Distribution Width SD 53.1 fl (35.1-43.9); Red Blood Count 2.99 M/mm3 (4.2-5.4)
[2021-12-12 12:24] LABS: PTHIN 256.5 pg/mL (18.4-80.1)
[2021-12-12 12:32] LABS: Albumin, Serum 3.3 g/dL (3.2-5.0); BUN 53 mg/dL (7-18); BUN/Creat Ratio 12.2 RATIO (10-20); Calcium,Total 9.9 mg/dL (8.5-10.1); Chloride 110 mmol/L (98-107); Creatinine, Serum 4.34 mg/dL (0.55-1.02); EST Glomerular Filtration Rate 10 mL/min (>60); Est Glom Filt Rate - Afr Amer 13 mL/min (>60); Glucose 91 mg/dL (74-106); Phosphorus 4.4 mg/dL (2.5-4.9); Potassium 4.3 mmol/L (3.5-5.1); Sodium Level 138 mmol/L (136-145)
== END | disposition home or self-care (01) ==
LOC: LAB 10:57
PROVIDERS: PCP Family Medicine; Visit Provider Internal Medicine Nephrology
DX: N18.5 Chronic kidney disease, stage 5 (principal); N25.81 Secondary hyperparathyroidism of renal origin; D50.9 Iron deficiency anemia, unspecified
CPT/HCPCS: 36415; 80069; 83970; 85027

== ENCOUNTER → 2022-01-31 | Outpatient (CLI) | payer MEDICARE, SELFPAY ==
[2022-01-31 11:37] LABS: Hematocrit 32.7 % (37-47); Hemoglobin 10.4 g/dL (12.0-15.0); Mean Corp Hgb Conc 31.8 g/dL (32-36); Mean Corpuscular Hgb 32.7 pg (27.0-32.0); Mean Corpuscular Volume 102.8 fL (81-99); Mean Platelet Vol. 9.1 fl (6.2-12.0); Platelet Count 252 K/mm3 (150-450); RBC Distribution Width CV 14.5 % (11.6-14.6); RBC Distribution Width SD 54.7 fl (35.1-43.9); Red Blood Count 3.18 M/mm3 (4.2-5.4)
[2022-01-31 12:03] LABS: PTHIN 212.5 pg/mL (18.4-80.1)
[2022-01-31 12:16] LABS: Albumin, Serum 3.5 g/dL (3.2-5.0); BUN 51 mg/dL (7-18); Chloride 109 mmol/L (98-107); Creatinine, Serum 4.25 mg/dL (0.55-1.02); EST Glomerular Filtration Rate 11 mL/min (>60); Est Glom Filt Rate - Afr Amer 13 mL/min (>60); Ferritin 617 ng/mL (8-252); Glucose 87 mg/dL (74-106); Iron 51 ug/dL (50-170); Iron Binding Capacity,Total 245 ug/dL (250-450); PERCENT IRON SATURATION 20.8 % (15.0-55.0); Phosphorus 4.1 mg/dL (2.5-4.9); Potassium 4.6 mmol/L (3.5-5.1); Sodium Level 139 mmol/L (136-145)
== END | disposition home or self-care (01) ==
LOC: LAB 11:16
PROVIDERS: PCP Family Medicine; Referring Provider Internal Medicine Nephrology; Visit Provider Internal Medicine Nephrology
DX: N18.5 Chronic kidney disease, stage 5 (principal); D50.9 Iron deficiency anemia, unspecified
CPT/HCPCS: 36415; 80069; 82728; 83540; 83550; 83970; 85027

== ENCOUNTER 2022-02-13 05:32 | Day surgery (SDC) | payer MEDICARE, SELFPAY ==
[2022-02-13 06:06] VITALS: BP 151/48; PULSE 57; RESP 18; TEMP 36.1; O2SAT 100; BMI 22.8
[2022-02-13] MEDS: Cefazolin 2 GM in 0.9% Normal Saline 100 ML IV (07:30)
--- NOTE | 2022-02-13 08:00 | DCINST_ITS ---
Discharge Instructions Diet Discharge Diet: No restrictions Activity Discharge Activity: Return to Normal Activity Dressing / Incision Call your doctor if you observe: Fever of 101 or Higher, Inability to urinate and Inability to have a bowel movement Follow Up Care Please Follow Up With: Melissa Rivas MD When: office will call to arrange next stent change Test Results: Test results from this visit will be discussed in further detail at your follow- up appointment, if applicable. Discharge Plan Admission Attending Provider: Melissa Rivas Primary Care Provider: Brett Flores Discharge Orders/Prescriptions Prescriptions: New oxycodone-acetaminophen [Percocet] 5-325 mg tablet 1 tab PO Q8H PRN (Reason: pain) 3 Days Qty: 3 0RF Continued aspirin 81 MG tablet,chewable 81 mg PO DAILY Label Comments: LAST DOSE 5 DAYS PRIOR, 02/09/22, for surgery on 02/13/22 ferrous sulfate 325 MG tablet 325 mg PO BID acetaminophen 650 MG tablet extended release 1,300 mg PO BID calcitriol 0.25 MCG capsule 0.25 mcg PO MOTUWETHFR sodium bicarbonate 650 MG tablet 650 mg PO BID amiodarone 100 MG tablet 100 mg PO DAILY levothyroxine 75 mcg Capsule 75 mcg PO DAILY ascorbic acid (vitamin C) 500 mg Tablet 500 mg PO DAILY clopidogrel 75 mg tablet 75 mg PO DAILY Qty: 90 3RF Label Comments: LAST DOSE 5 DAYS PRIOR, 02/09/22, for surgery on 02/13/22 metoprolol tartrate 25 mg tablet 25 mg PO BID Qty: 180 3RF Referrals / Follow Up: Brett Flores DO [Primary Care Provider] - Disposition Disposition (needs filled in before D/C Order can be placed): Home, Self Care
[2022-02-13 08:08] VITALS: BP 110/43; BP 151/48; PULSE 51; RESP 16; TEMP 36.4; O2SAT 97
[2022-02-13 08:15] VITALS: BP 114/47; BP 151/48; PULSE 52; RESP 16; O2SAT 98
--- NOTE | 2022-02-13 08:15 | OP.PCM_ITS ---
Report of Operation Date of Procedure: 02/13/22 Pre-Operative Diagnosis: Bilateral ureteral stricture with obstruction Post-Operative Diagnosis: Same Surgery/Procedure Performed:: Cystoscopy with bilateral ureteral stent change Surgeon: Melissa Rivas Type of Anesthesia: MAC Description of Procedure: The patient is a 81-year-old female with bilateral ureteral strictures who presents for her every 3 month cystoscopy and stent change. Informed consent was obtained. Her preoperative urine culture is negative and she was placed on antibiotics. She was taken to the operating room and placed on the operating room table. Anesthesia monitored the head, neck, airway, IV access and vital signs throughout the case. Once anesthesia was appropriately administered, the patient was placed into dorsal lithotomy position and was prepped and draped in usual sterile fashion. The cystoscope was inserted through the urethra under direct visualization into the urinary bladder. The left ureteral stent was grasped and pulled to the urethra where it was intubated with a 0.035 Glidewire. The stent was then removed and the wire was backloaded into the scope. At this time a new 6 Kisw[place]ili 24 cm JJ stent was inserted over the wire with good positioning in the renal pelvis as well as the urinary bladder. This procedure was then repeated on the patient's right side without complication. At this time the patient's bladder was emptied and the cystoscope was removed. She was awakened and taken to the recovery room in good condition. There were no complications during this procedure. Grafts/Implants Used: 6 x 24 JJ stent x2 Complications None Admit VTE Documentation VTE Present on Admission: Yes VTE Mechan Device Prophylaxis: SCD's VTE Pharm Prophylaxis ordered?: Yes
[2022-02-13 08:20] VITALS: BP 131/47; BP 151/48; PULSE 51; RESP 16; O2SAT 97
[2022-02-13 08:25] VITALS: BP 127/45; BP 151/48; PULSE 48; RESP 16; TEMP 36.1; O2SAT 96
== END 2022-02-13 09:24 | disposition home or self-care (01) ==
LOC: SDC 05:33 → AC 05:34
PROVIDERS: PCP Family Medicine; Referring Provider Urology; Visit Provider Urology
PROC: (CPT 52332; principal; 2022-02-13 07:20)
DX: N13.1 Hydronephrosis with ureteral stricture, not elsewhere classified (principal); N18.4 Chronic kidney disease, stage 4 (severe); I48.0 Paroxysmal atrial fibrillation; N25.81 Secondary hyperparathyroidism of renal origin; I25.10 Atherosclerotic heart disease of native coronary artery without angina pectoris; E78.5 Hyperlipidemia, unspecified; I12.9 Hypertensive chronic kidney disease with stage 1 through stage 4 chronic kidney disease, or unspecified chronic kidney disease; Z79.899 Other long term (current) drug therapy; Z79.82 Long term (current) use of aspirin; Z79.890 Hormone replacement therapy; Z79.02 Long term (current) use of antithrombotics/antiplatelets; E03.9 Hypothyroidism, unspecified; D50.9 Iron deficiency anemia, unspecified; N39.41 Urge incontinence; M19.90 Unspecified osteoarthritis, unspecified site; N39.0 Urinary tract infection, site not specified
CPT/HCPCS: 52332; 00910; 76000; J7040; A4216; C2617; J2405

== ENCOUNTER → 2022-04-04 | Outpatient (CLI) | payer MEDICARE, SELFPAY ==
[2022-04-04 11:23] LABS: Hematocrit 29.4 % (37-47); Hemoglobin 9.7 g/dL (12.0-15.0); Mean Corpuscular Hgb 33.9 pg (27.0-32.0); Mean Corpuscular Volume 102.8 fL (81-99); Platelet Count 187 K/mm3 (150-450); RBC Distribution Width CV 14.5 % (11.6-14.6); RBC Distribution Width SD 54.9 fl (35.1-43.9); Red Blood Count 2.86 M/mm3 (4.2-5.4); White Blood Count 7.4 K/mm3 (4.4-11.0)
[2022-04-04 11:48] LABS: Albumin, Serum 3.4 g/dL (3.2-5.0); BUN 57 mg/dL (7-18); BUN/Creat Ratio 12.9 RATIO (10-20); Calcium,Total 10.1 mg/dL (8.5-10.1); Chloride 113 mmol/L (98-107); Creatinine, Serum 4.43 mg/dL (0.55-1.02); EST Glomerular Filtration Rate 10 mL/min (>60); Est Glom Filt Rate - Afr Amer 12 mL/min (>60); Glucose 105 mg/dL (74-106); Phosphorus 3.9 mg/dL (2.5-4.9); Potassium 4.6 mmol/L (3.5-5.1); Sodium Level 141 mmol/L (136-145)
[2022-04-04 13:15] LABS: PTHIN 229.4 pg/mL (18.4-80.1)
== END | disposition home or self-care (01) ==
PROVIDERS: PCP Family Medicine; Referring Provider Internal Medicine Nephrology; Visit Provider Internal Medicine Nephrology
DX: N18.5 Chronic kidney disease, stage 5 (principal); D50.9 Iron deficiency anemia, unspecified
CPT/HCPCS: 36415; 80069; 83970; 85027

== ENCOUNTER → 2022-04-15 | Outpatient (CLI) | payer MEDICARE, SELFPAY ==
--- NOTE | 2022-04-15 15:05 | PFTCOMP_ITS ---
COMPLETE PULMONARY FUNCTION TEST INTERPRETATION Brief HPI: Patient is a 81-year-old female, currently under the care of Dr. Cason, who presents to [facility] for complete pulmonary function tests secondary to diagnosis of high risk med use. Respiratory therapist reports good effort and reproducible results. Interpretation: Forced expiration spirometry shows no large airways obstructive ventilatory defect with an FEV1 of 88% predicted. There is a significant bronchodilator response in FVC by strict ATS criteria. Spirograms are of good quality and plateau normally. The respiratory flow volume loop shows a normal pattern. Lung volumes by body plethysmography show a normal total lung capacity at 4.71 L, 104% predicted. FRC and RV are elevated out of proportion. Lung volume measurements are consistent with hyperinflation and air-trapping. Diffusion capacity by carbon monoxide is normal at 72% predicted. The airway resistance is elevated. Compared to previous pulmonary function tests from 12/31/2017, there has been decrease in FVC and FEV1, but DLCO has improved by 44%. Impression: Grossly normal pulmonary function tests with normalization compared to previous study
== END | disposition home or self-care (01) ==
LOC: PSN 12:10
PROVIDERS: PCP Family Medicine; Referring Provider Internal Medicine Cardiovascular Disease; Visit Provider Internal Medicine Cardiovascular Disease
DX: I48.0 Paroxysmal atrial fibrillation (principal)
CPT/HCPCS: 94060; 94726; 94729

== ENCOUNTER 2022-05-08 05:56 | Day surgery (SDC) | payer MEDICARE, SELFPAY ==
[2022-05-08] VITALS (7 sets, daily range): BP systolic 107–157; BP diastolic 45–55; PULSE 55–57; RESP 16–18; TEMP 36.1–36.6; O2SAT 92–97; BMI 23.0
[2022-05-08] MEDS: 0.9% Normal Saline 1,000 ML 15 ML IV (06:44)
[2022-05-08] MEDS: Ciprofloxacin 200 MG/100 ML BAG 100 MG IV (07:19)
--- NOTE | 2022-05-08 07:58 | DCINST_ITS ---
Discharge Instructions Diet Discharge Diet: No restrictions Activity Discharge Activity: Return to Normal Activity Dressing / Incision Call your doctor if you observe: Fever of 101 or Higher, Inability to urinate and Inability to have a bowel movement Follow Up Care Please Follow Up With: Melissa Barajas MD Test Results: Test results from this visit will be discussed in further detail at your follow- up appointment, if applicable. Discharge Plan Admission Attending Provider: Melissa Barajas Primary Care Provider: Brett Flores Discharge Orders/Prescriptions Prescriptions: Continued amlodipine 2.5 mg tablet 2.5 mg PO DAILY aspirin 81 MG tablet,chewable 81 mg PO DAILY Label Comments: LAST DOSE 5 DAYS PRIOR, 02/09/22, for surgery on 02/13/22 ferrous sulfate 325 MG tablet 325 mg PO BID acetaminophen 650 MG tablet extended release 1,300 mg PO BID calcitriol 0.25 mcg capsule 0.25 mcg PO DAILY sodium bicarbonate 650 MG tablet 650 mg PO BID amiodarone 100 MG tablet 100 mg PO DAILY levothyroxine 75 mcg Capsule 75 mcg PO DAILY ascorbic acid (vitamin C) 500 mg Tablet 500 mg PO DAILY oxycodone-acetaminophen [Percocet] 5-325 mg tablet 1 tab PO Q8H PRN (Reason: pain) 3 Days Qty: 3 0RF nitrofurantoin monohyd/m-cryst 100 mg capsule 1 cap PO BID Label Comments: TAKE 1 CAPSULE BY MOUTH TWICE DAILY UNTIL GONE Rx Instructions: ATB FOR [address] BARAJAS STARTING 05/05/22 metoprolol tartrate 25 mg tablet 25 mg PO BID Qty: 180 3RF Referrals / Follow Up: Brett Flores DO [Primary Care Provider] - Disposition Disposition (needs filled in before D/C Order can be placed): Home, Self Care
--- NOTE | 2022-05-08 09:18 | PCM.OPRPT ---
Report of Operation Date of Procedure: 05/08/22 Pre-Operative Diagnosis: chronic ureteral obstruction bilaterally Post-Operative Diagnosis: same Surgery/Procedure Performed:: cystoscopy with bilateral ureteral stent change Surgeon: Melissa Rivas Type of Anesthesia: MAC Description of Procedure: The patient is a 81-year-old female with chronic ureteral obstruction bilaterally who presents for her routine bilateral ureteral stent change which is done every 3 months. Informed consent has been obtained. She has a negative preoperative culture and has been on antibiotics. She was taken to the operating room placed on the operating room table. Anesthesia monitored the head, neck, airway, IV access and vital signs throughout the case. Once anesthesia was appropriate ministered, the patient was placed into dorsolithotomy position and was prepped and draped in usual sterile fashion. The cystoscope was inserted through the urethra under direct visualization into the urinary bladder. The left ureteral stent was identified grasped and pulled to the urethral meatus. The Glidewire was then loaded through the stent and seen in the renal pelvis on fluoroscopic evaluation. The stent was removed and a brand-new 624 cm double-J stent was placed over the wire with good positioning in the left renal pelvis as well as the urinary bladder. This process was then repeated on the patient's right side without complication. At this time the patient's bladder was emptied, she was awakened and taken to the recovery room in good condition. There were no complications during this procedure. Grafts/Implants Used: 6 x 24 JJ stent x 2 Complications none Admit VTE Documentation VTE Present on Admission: Yes VTE Mechan Device Prophylaxis: SCD's VTE Pharm Prophylaxis ordered?: No Reason prophylaxis not ordered:: Treatment Not Indicated
== END 2022-05-08 09:27 | disposition home or self-care (01) ==
LOC: SDC 05:58 → AC 05:58
PROVIDERS: PCP Family Medicine; Referring Provider Urology; Visit Provider Urology
PROC: (CPT 52332; principal; 2022-05-08 07:20)
DX: N13.6 Pyonephrosis (principal); N18.4 Chronic kidney disease, stage 4 (severe); I48.0 Paroxysmal atrial fibrillation; N39.41 Urge incontinence; R35.1 Nocturia; I25.10 Atherosclerotic heart disease of native coronary artery without angina pectoris; I12.9 Hypertensive chronic kidney disease with stage 1 through stage 4 chronic kidney disease, or unspecified chronic kidney disease; E78.5 Hyperlipidemia, unspecified; E03.9 Hypothyroidism, unspecified; Z79.82 Long term (current) use of aspirin; Z79.890 Hormone replacement therapy; Z79.899 Other long term (current) drug therapy
CPT/HCPCS: 52332; 00910; 76000; J7030; C2617; J0744; J2405

== ENCOUNTER → 2022-05-15 | Outpatient (CLI) | payer MEDICARE, SELFPAY ==
[2022-05-15 13:45] LABS: Hematocrit 33.8 % (37-47); Hemoglobin 10.8 g/dL (12.0-15.0); Mean Corpuscular Hgb 33.5 pg (27.0-32.0); Mean Platelet Vol. 8.9 fl (6.2-12.0); Platelet Count 260 K/mm3 (150-450); RBC Distribution Width CV 13.8 % (11.6-14.6); RBC Distribution Width SD 52.2 fl (35.1-43.9); Red Blood Count 3.22 M/mm3 (4.2-5.4); White Blood Count 8.5 K/mm3 (4.4-11.0)
[2022-05-15 14:15] LABS: PTHIN 173.8 pg/mL (18.4-80.1)
[2022-05-15 14:26] LABS: Albumin, Serum 3.4 g/dL (3.2-5.0); BUN 54 mg/dL (7-18); BUN/Creat Ratio 12.5 RATIO (10-20); Calcium,Total 10.2 mg/dL (8.5-10.1); Chloride 110 mmol/L (98-107); Creatinine, Serum 4.32 mg/dL (0.55-1.02); EST Glomerular Filtration Rate 11 mL/min (>60); Est Glom Filt Rate - Afr Amer 13 mL/min (>60); Ferritin 590 ng/mL (8-252); Glucose 94 mg/dL (74-106); Iron 38 ug/dL (50-170); Iron Binding Capacity,Total 257 ug/dL (250-450); Phosphorus 3.3 mg/dL (2.5-4.9); Potassium 4.2 mmol/L (3.5-5.1); Sodium Level 139 mmol/L (136-145)
== END | disposition home or self-care (01) ==
LOC: LAB 12:47
PROVIDERS: PCP Family Medicine; Referring Provider Internal Medicine Nephrology; Visit Provider Internal Medicine Nephrology
DX: N18.5 Chronic kidney disease, stage 5 (principal); N25.81 Secondary hyperparathyroidism of renal origin; D50.9 Iron deficiency anemia, unspecified
CPT/HCPCS: 36415; 80069; 82728; 83540; 83550; 83970; 85027

== ENCOUNTER → 2022-07-31 | Outpatient (CLI) | payer MEDICARE, SELFPAY ==
[2022-07-31 12:35] LABS: PTHIN 174.2 pg/mL (18.4-80.1)
[2022-07-31 12:39] LABS: Hematocrit 33.9 % (37-47); Hemoglobin 10.9 g/dL (12.0-15.0); Mean Corp Hgb Conc 32.2 g/dL (32-36); Mean Corpuscular Hgb 33.6 pg (27.0-32.0); Mean Corpuscular Volume 104.6 fL (81-99); Mean Platelet Vol. 9.2 fl (6.2-12.0); Platelet Count 211 K/mm3 (150-450); RBC Distribution Width CV 13.8 % (11.6-14.6); RBC Distribution Width SD 52.5 fl (35.1-43.9); Red Blood Count 3.24 M/mm3 (4.2-5.4); White Blood Count 6.9 K/mm3 (4.4-11.0)
[2022-07-31 12:44] LABS: Albumin, Serum 3.7 g/dL (3.2-5.0); BUN 63 mg/dL (7-18); BUN/Creat Ratio 14.3 RATIO (10-20); Calcium,Total 10.6 mg/dL (8.5-10.1); Chloride 113 mmol/L (98-107); Creatinine, Serum 4.41 mg/dL (0.55-1.02); EST Glomerular Filtration Rate 10 mL/min (>60); Est Glom Filt Rate - Afr Amer 12 mL/min (>60); Ferritin 523 ng/mL (8-252); Glucose 109 mg/dL (74-106); Iron 69 ug/dL (50-170); Iron Binding Capacity,Total 256 ug/dL (250-450); Phosphorus 3.5 mg/dL (2.5-4.9); Potassium 4.3 mmol/L (3.5-5.1); Sodium Level 140 mmol/L (136-145)
== END | disposition home or self-care (01) ==
LOC: LAB 11:27
PROVIDERS: PCP Family Medicine; Referring Provider Internal Medicine Nephrology; Visit Provider Internal Medicine Nephrology
DX: N18.5 Chronic kidney disease, stage 5 (principal); N25.81 Secondary hyperparathyroidism of renal origin; D50.9 Iron deficiency anemia, unspecified
CPT/HCPCS: 36415; 80069; 82728; 83540; 83550; 83970; 85027

== ENCOUNTER → 2022-08-06 | Outpatient (CLI) | payer MEDICARE, SELFPAY ==
[2022-08-06 17:59] LABS: Hepatitis B Surface Antigen Non-Reactive (Nonreactive)
== END | disposition home or self-care (01) ==
LOC: POLAB3 15:46
PROVIDERS: PCP Family Medicine; Visit Provider Internal Medicine Nephrology
DX: N18.6 End stage renal disease (principal); N25.81 Secondary hyperparathyroidism of renal origin; D50.9 Iron deficiency anemia, unspecified
CPT/HCPCS: 36415; 87340

== ENCOUNTER 2022-09-26 06:27 | Day surgery (SDC) | payer MEDICARE, SELFPAY ==
[2022-09-26 06:55] VITALS: BP 134/96; PULSE 57; RESP 16; TEMP 36.2; O2SAT 98; BMI 22.2
--- NOTE | 2022-09-26 08:15 | DCINST_ITS ---
Discharge Instructions Diet Discharge Diet: No restrictions Activity Discharge Activity: Return to Normal Activity Dressing / Incision Call your doctor if you observe: Fever of 101 or Higher, Inability to urinate and Inability to have a bowel movement Follow Up Care Please Follow Up With: Melissa Rivas MD When: Call office for appointment Test Results: Test results from this visit will be discussed in further detail at your follow- up appointment, if applicable. Discharge Plan Admission Attending Provider: Melissa Rivas Primary Care Provider: Brett Flores Discharge Orders/Prescriptions Prescriptions: New nitrofurantoin monohyd/m-cryst [Macrobid] 100 mg capsule 100 mg PO BID Qty: 6 0RF Rx Instructions: must administer with a meal/food Continued aspirin 81 MG tablet,chewable 81 mg PO DAILY Label Comments: LAST DOSE 5 DAYS PRIOR, 02/09/22, for surgery on 02/13/22 ferrous sulfate 325 MG tablet 325 mg PO BID acetaminophen 650 MG tablet extended release 1,300 mg PO BID calcitriol 0.25 mcg capsule 0.25 mcg PO TUTH amiodarone 100 MG tablet 100 mg PO DAILY levothyroxine 75 mcg Capsule 75 mcg PO DAILY ascorbic acid (vitamin C) 500 mg Tablet 500 mg PO DAILY oxycodone-acetaminophen [Percocet] 5-325 mg tablet 1 tab PO Q8H PRN (Reason: pain) 3 Days Qty: 3 0RF metoprolol tartrate 25 mg tablet 25 mg PO BID Qty: 180 3RF Referrals / Follow Up: Brett Flores DO [Primary Care Provider] - Disposition Disposition (needs filled in before D/C Order can be placed): Home, Self Care
--- NOTE | 2022-09-26 08:16 | PCM.OPRPT ---
Report of Operation Date of Procedure: 09/26/22 Pre-Operative Diagnosis: Bilateral ureteral stricture with obstruction Post-Operative Diagnosis: Same Surgery/Procedure Performed:: Cystoscopy, bilateral ureteral stent change Surgeon: Melissa Rivas Type of Anesthesia: MAC Description of Procedure: The patient is a 81-year-old female with chronic ureteral obstruction and chronic indwelling ureteral stents who presents for routine stent change. Informed consent was obtained. She has negative preoperative culture. The patient was taken to the operating room and placed on the operating room table. Anesthesia monitored the head, neck, airway, IV access and vital signs throughout the case. Once anesthesia was appropriate ministered, the patient was placed into dorsal lithotomy position and was prepped and draped in usual sterile fashion. The cystoscope was inserted through the urethra under direct visualization into the urinary bladder. The bladder mucosa was visualized with no findings of mass or foreign body other than the stents. There was a significant amount of debris. At this time the right ureteral stent was observed, and a 0.035 Glidewire was placed alongside the stent through the ureteral orifice into the renal pelvis as seen on fluoroscopy. The cystoscope was then removed and graspers were used to remove the indwelling ureteral stent while holding the wire in place. At this time the Glidewire was backloaded and a new 6 Sinhala 24 cm JJ stent was inserted over the wire with good curling in the renal pelvis as well as the urinary bladder. This process was then repeated on the patient's left side. The patient's bladder was then emptied and the cystoscope was removed. The patient was awakened and taken to the recovery room in good condition. There were no complications during this procedure. Grafts/Implants Used: 6 x 24 JJ stent x2 Complications None Admit VTE Documentation VTE Present on Admission: Yes VTE Mechan Device Prophylaxis: SCD's VTE Pharm Prophylaxis ordered?: No Reason prophylaxis not ordered:: Treatment Not Indicated
[2022-09-26] MEDS: Ciprofloxacin 400 MG/200 ML BAG 200 MG IV (08:25)
[2022-09-26 09:01] VITALS: BP 124/55; BP 134/96; PULSE 55; RESP 16; TEMP 36.1; O2SAT 95
[2022-09-26 09:06] VITALS: BP 117/50; BP 134/96; PULSE 53; RESP 16; O2SAT 92
[2022-09-26 09:10] VITALS: BP 110/41; BP 134/96; PULSE 53; RESP 16; O2SAT 92
[2022-09-26 09:15] VITALS: BP 128/48; BP 134/96; PULSE 52; RESP 16; TEMP 36.4; O2SAT 98
[2022-09-26 09:34] VITALS: BP 134/96
== END 2022-09-26 09:49 | disposition home or self-care (01) ==
LOC: SDC 06:28 → AC 06:29
PROVIDERS: PCP Family Medicine; Referring Provider Urology; Visit Provider Urology
PROC: (CPT 52332; principal; 2022-09-26 08:25)
DX: N13.1 Hydronephrosis with ureteral stricture, not elsewhere classified (principal); N18.4 Chronic kidney disease, stage 4 (severe); I48.0 Paroxysmal atrial fibrillation; N39.41 Urge incontinence; I25.10 Atherosclerotic heart disease of native coronary artery without angina pectoris; I12.9 Hypertensive chronic kidney disease with stage 1 through stage 4 chronic kidney disease, or unspecified chronic kidney disease; E78.5 Hyperlipidemia, unspecified; E03.9 Hypothyroidism, unspecified; R35.1 Nocturia; Z79.02 Long term (current) use of antithrombotics/antiplatelets; Z79.82 Long term (current) use of aspirin; Z79.890 Hormone replacement therapy; Z79.899 Other long term (current) drug therapy
CPT/HCPCS: 52332; 00910; 76000; J7040; C1769; C2617; J0744; J2405

== ENCOUNTER 2023-01-30 09:02 | Day surgery (SDC) | payer MEDICARE, SELFPAY ==
[2023-01-30 09:32] VITALS: BP 138/55; PULSE 67; RESP 16; TEMP 36.4; O2SAT 98; BMI 23.4
[2023-01-30] MEDS: 0.9% Normal Saline 1,000 ML 15 ML IV (09:52)
[2023-01-30] MEDS: Ciprofloxacin 200 MG/100 ML BAG 100 MG IV (11:28)
--- NOTE | 2023-01-30 11:31 | DCINST_ITS ---
Discharge Instructions Diet Discharge Diet: No restrictions Activity Discharge Activity: Return to Normal Activity Dressing / Incision Call your doctor if you observe: Fever of 101 or Higher, Inability to urinate and Inability to have a bowel movement Follow Up Care Please Follow Up With: Melissa Rivas MD When: We will make arrangements for routine ureteral stent changes in 3 months. Test Results: Test results from this visit will be discussed in further detail at your follow- up appointment, if applicable. Discharge Plan Admission Attending Provider: Melissa Rivas Primary Care Provider: Brett Flores Discharge Orders/Prescriptions Prescriptions: New nitrofurantoin monohyd/m-cryst [Macrobid] 100 mg capsule 100 mg PO BID Qty: 10 0RF Rx Instructions: must administer with a meal/food Continued aspirin 81 MG tablet,chewable 81 mg PO DAILY Patient Comments: LAST DOSE 5 DAYS PRIOR, 02/09/22, for surgery on 02/13/22 ferrous sulfate 325 MG tablet 325 mg PO DAILY acetaminophen 650 MG tablet extended release 1,300 mg PO BID amiodarone 100 MG tablet 100 mg PO DAILY levothyroxine 75 mcg Capsule 75 mcg PO DAILY ascorbic acid (vitamin C) 500 mg Tablet 500 mg PO DAILY oxycodone-acetaminophen [Percocet] 5-325 mg tablet 1 tab PO Q8H PRN (Reason: pain) 3 Days Qty: 3 0RF sevelamer carbonate 800 mg tablet 800 mg PO DAILY Patient Comments: TAKE 1 TABLET BY MOUTH ONCE A DAY WITH THE LARGEST MEAL OF THE DAY metoprolol tartrate 25 mg tablet 25 mg PO BID Qty: 180 3RF Referrals / Follow Up: Brett Flores DO [Primary Care Provider] - Disposition Disposition (needs filled in before D/C Order can be placed): Home, Self Care
--- NOTE | 2023-01-30 11:56 | PCM.OPRPT ---
Report of Operation Date of Procedure: 01/30/23 Pre-Operative Diagnosis: Bilateral ureteral stricture with obstruction Post-Operative Diagnosis: Same Surgery/Procedure Performed:: Cystoscopy with bilateral ureteral stent change Surgeon: Melissa Rivas Type of Anesthesia: MAC Description of Procedure: The patient is a 81-year-old female with chronic ureteral obstruction and chronic indwelling ureteral stents who presents for routine stent change. Informed consent was obtained. She has negative preoperative culture. The patient was taken to the operating room and placed on the operating room table. Anesthesia monitored the head, neck, airway, IV access and vital signs throughout the case. Once anesthesia was appropriate ministered, the patient was placed into dorsal lithotomy position and was prepped and draped in usual sterile fashion. The cystoscope was inserted through the urethra under direct visualization into the urinary bladder. The bladder mucosa was visualized with no findings of mass or foreign body other than the stents. There was a significant amount of debris. At this time the left ureteral stent was observed, and a 0.035 Glidewire was placed alongside the stent through the ureteral orifice into the renal pelvis as seen on fluoroscopy. The graspers were used to remove the indwelling ureteral stent while holding the wire in place. a new 6 Swedish 24 cm JJ stent was inserted over the wire with good curling in the renal pelvis as well as the urinary bladder. This process was then repeated on the patient's right side. The patient's bladder was then emptied and the cystoscope was removed. The patient was awakened and taken to the recovery room in good condition. There were no complications during this procedure. Grafts/Implants Used: 6 x 24 JJ stent x2 Complications None Admit VTE Documentation VTE Present on Admission: Yes VTE Mechan Device Prophylaxis: SCD's VTE Pharm Prophylaxis ordered?: No Reason prophylaxis not ordered:: Treatment Not Indicated
[2023-01-30 12:05] VITALS: BP 112/47; BP 138/55; PULSE 62; RESP 16; TEMP 36.6; O2SAT 95
[2023-01-30 12:09] VITALS: BP 112/49; BP 138/55; PULSE 62; RESP 16; O2SAT 95
[2023-01-30 12:15] VITALS: BP 123/50; BP 138/55; PULSE 68; RESP 16; O2SAT 95
[2023-01-30 12:20] VITALS: BP 135/49; BP 138/55; PULSE 67; RESP 16; TEMP 36.8; O2SAT 97
[2023-01-30 12:47] VITALS: BP 138/55
== END 2023-01-30 13:04 | disposition home or self-care (01) ==
LOC: SDC 09:05 → AC 09:06
PROVIDERS: PCP Family Medicine; Referring Provider Urology; Visit Provider Urology
PROC: (CPT 52332; principal; 2023-01-30 11:05)
DX: N13.1 Hydronephrosis with ureteral stricture, not elsewhere classified (principal); N18.6 End stage renal disease; I12.0 Hypertensive chronic kidney disease with stage 5 chronic kidney disease or end stage renal disease; I48.91 Unspecified atrial fibrillation; E03.9 Hypothyroidism, unspecified; N39.41 Urge incontinence; R35.1 Nocturia; I25.10 Atherosclerotic heart disease of native coronary artery without angina pectoris; D50.9 Iron deficiency anemia, unspecified; Z79.02 Long term (current) use of antithrombotics/antiplatelets; Z79.890 Hormone replacement therapy; Z79.899 Other long term (current) drug therapy
CPT/HCPCS: 52332; 00910; 76000; J7030; C2617; J0744

== ENCOUNTER 2023-05-08 09:15 | Day surgery (SDC) | payer MEDICARE, SELFPAY ==
[2023-05-08] VITALS (7 sets, daily range): BP systolic 106–128; BP diastolic 43–56; PULSE 63–81; RESP 16; TEMP 36.2–36.8; O2SAT 93–96; BMI 23.4
[2023-05-08] MEDS: 0.9% Normal Saline (500mL Bag) 500 ML 15 ML IV (09:45)
--- NOTE | 2023-05-08 10:48 | DCINST_ITS ---
Discharge Instructions Diet Discharge Diet: No restrictions Activity Discharge Activity: Return to Normal Activity Dressing / Incision Call your doctor if you observe: Fever of 101 or Higher, Inability to urinate and Inability to have a bowel movement Follow Up Care Please Follow Up With: Melissa Rivas MD When: the office will call her for follow up instructions Test Results: Test results from this visit will be discussed in further detail at your follow- up appointment, if applicable. Discharge Plan Admission Attending Provider: Melissa Rivas Primary Care Provider: Brett Flores Discharge Orders/Prescriptions Prescriptions: New oxycodone-acetaminophen [Percocet] 5-325 mg tablet 1 tab PO Q8H PRN (Reason: pain) 1 Days Qty: 3 0RF nitrofurantoin monohyd/m-cryst [Macrobid] 100 mg capsule 100 mg PO BID Qty: 10 0RF Rx Instructions: must administer with a meal/food Continued aspirin 81 MG tablet,chewable 81 mg PO DAILY Patient Comments: LAST DOSE 5 DAYS PRIOR, 02/09/22, for surgery on 02/13/22 ferrous sulfate 325 MG tablet 325 mg PO DAILY acetaminophen 650 MG tablet extended release 1,300 mg PO BID amiodarone 100 MG tablet 100 mg PO DAILY levothyroxine 75 mcg Capsule 75 mcg PO DAILY ascorbic acid (vitamin C) 500 mg Tablet 500 mg PO DAILY sevelamer carbonate 800 mg tablet 800 mg PO DAILY Patient Comments: TAKE 1 TABLET BY MOUTH ONCE A DAY WITH THE LARGEST MEAL OF THE DAY Velphoro 500 mg tablet,chewable 500 mg PO BID metoprolol tartrate 25 mg tablet 25 mg PO BID Qty: 180 3RF Referrals / Follow Up: Brett Flores DO [Primary Care Provider] - Disposition Disposition (needs filled in before D/C Order can be placed): Home, Self Care
--- NOTE | 2023-05-08 10:52 | PCM.OPRPT ---
Report of Operation Date of Procedure: 05/08/23 Pre-Operative Diagnosis: bilateral ureteral obstruction Post-Operative Diagnosis: same Surgery/Procedure Performed:: cystoscopy with bilateral ureteral stent change Surgeon: Melissa Rivas Type of Anesthesia: MAC Description of Procedure: The patient is a 81-year-old female with chronic ureteral obstruction and chronic indwelling ureteral stents who presents for routine stent change. Informed consent was obtained. She has negative preoperative culture. The patient was taken to the operating room and placed on the operating room table. Anesthesia monitored the head, neck, airway, IV access and vital signs throughout the case. Once anesthesia was appropriate ministered, the patient was placed into dorsal lithotomy position and was prepped and draped in usual sterile fashion. The cystoscope was inserted through the urethra under direct visualization into the urinary bladder. The bladder mucosa was visualized with no findings of mass or foreign body other than the stents. There was a significant amount of debris. At this time the left ureteral stent was observed, and a 0.035 Glidewire was placed alongside the stent through the ureteral orifice into the renal pelvis as seen on fluoroscopy. The graspers were used to remove the indwelling ureteral stent while holding the wire in place. a new 6 [place] 24 cm JJ stent was inserted over the wire with good curling in the renal pelvis as well as the urinary bladder. This process was then repeated on the patient's right side. The patient's bladder was then emptied and the cystoscope was removed. The patient was awakened and taken to the recovery room in good condition. There were no complications during this procedure. Grafts/Implants Used: 6 x 24 JJ stents x 2 Complications none Admit VTE Documentation VTE Present on Admission: Yes VTE Mechan Device Prophylaxis: SCD's VTE Pharm Prophylaxis ordered?: No Reason prophylaxis not ordered:: Treatment Not Indicated
[2023-05-08] MEDS: Ciprofloxacin 200 MG/100 ML BAG 100 MG IV (12:01)
== END 2023-05-08 13:30 | disposition home or self-care (01) ==
LOC: SDC 09:17 → AC 09:19
PROVIDERS: PCP Family Medicine; Referring Provider Urology; Visit Provider Urology
PROC: (CPT 50385; principal; 2023-05-08 11:05)
DX: N13.1 Hydronephrosis with ureteral stricture, not elsewhere classified (principal); N18.6 End stage renal disease; I12.0 Hypertensive chronic kidney disease with stage 5 chronic kidney disease or end stage renal disease; I48.0 Paroxysmal atrial fibrillation; N20.0 Calculus of kidney; I25.10 Atherosclerotic heart disease of native coronary artery without angina pectoris; E07.9 Disorder of thyroid, unspecified; D50.9 Iron deficiency anemia, unspecified; Z79.890 Hormone replacement therapy; Z79.899 Other long term (current) drug therapy; Z79.82 Long term (current) use of aspirin; E78.5 Hyperlipidemia, unspecified; Z90.49 Acquired absence of other specified parts of digestive tract
CPT/HCPCS: 50385; 00910; 76000; J7040; J7120; C2617; J0744; J2405

== ENCOUNTER 2023-08-27 06:45 | Day surgery (SDC) | payer MEDICARE, SELFPAY ==
[2023-08-25 11:22] LABS: Hematocrit 32.7 % (37-47); Hemoglobin 10.3 g/dL (12.0-15.0); Mean Corp Hgb Conc 31.5 g/dL (32-36); Mean Corpuscular Hgb 32.9 pg (27.0-32.0); Mean Corpuscular Volume 104.5 fL (81-99); Mean Platelet Vol. 9.2 fl (6.2-12.0); Platelet Count 250 K/mm3 (150-450); RBC Distribution Width CV 14.8 % (11.6-14.6); RBC Distribution Width SD 56.3 fl (35.1-43.9); Red Blood Count 3.13 M/mm3 (4.2-5.4); White Blood Count 11.7 K/mm3 (4.4-11.0)
[2023-08-25 11:49] LABS: Anion Gap 9 (5-15); BUN 17 mg/dL (7-18); BUN/Creat Ratio 7.9 RATIO (10-20); Chloride 99 mmol/L (98-107); Creatinine, Serum 2.14 mg/dL (0.55-1.02); EST Glomerular Filtration Rate 24 mL/min (>60); Est Glom Filt Rate - Afr Amer 29 mL/min (>60); Glucose 91 mg/dL (74-106); Potassium 3.2 mmol/L (3.5-5.1); Sodium Level 138 mmol/L (136-145)
[2023-08-27 07:21] VITALS: BP 113/52; PULSE 66; RESP 16; TEMP 36.2; O2SAT 94; BMI 22.6
--- NOTE | 2023-08-27 08:03 | OP.PCM_ITS ---
Report of Operation Date of Procedure: 08/27/23 Pre-Operative Diagnosis: Bilateral ureteral obstruction Post-Operative Diagnosis: Same Surgery/Procedure Performed:: Cystoscopy with bilateral ureteral stent change Surgeon: Melissa Rivas Type of Anesthesia: MAC Description of Procedure: The patient is a 81-year-old female with chronic ureteral obstruction and chronic indwelling ureteral stents who presents for routine stent change. Informed consent was obtained. She had a positive preoperative culture, she was given Cipro yesterday. After further discussion with the patient, I realized I gave her a 500 mg dose of Cipro instead of the 250 dose that she normally receives secondary to her renal failure. She was also given the 200 mg IV prior to the case. I spoke with the family, and called the pharmacy. She is scheduled for dialysis in 2 days. The decision was made to give her no further antibiotic coverage for now. She will be closely monitored. The patient was taken to the operating room and placed on the operating room table. Anesthesia monitored the head, neck, airway, IV access and vital signs throughout the case. Once anesthesia was appropriate ministered, the patient was placed into dorsal lithotomy position and was prepped and draped in usual sterile fashion. The cystoscope was inserted through the urethra under direct visualization into the urinary bladder. The bladder mucosa was visualized with no findings of mass or foreign body other than the stents. There was a significant amount of debris and foul odor to the urine. At this time the left ureteral stent was observed, and a 0.035 Glidewire was placed alongside the stent through the ureteral orifice into the renal pelvis as seen on fluoroscopy. The graspers were used to remove the indwelling ureteral stent while holding the wire in place. a new 6 Tamazight 24 cm JJ stent was inserted over the wire with good curling in the renal pelvis as well as the urinary bladder. This process was then repeated on the patient's right side. The patient's bladder was then emptied and the cystoscope was removed. The patient was awakened and taken to the recovery room in good condition. There were no complications during this procedure. Grafts/Implants Used: 6 x 24 JJ stent x 2 Complications None Admit VTE Documentation VTE Present on Admission: Yes VTE Mechan Device Prophylaxis: SCD's VTE Pharm Prophylaxis ordered?: No Reason prophylaxis not ordered:: Treatment Not Indicated
--- NOTE | 2023-08-27 08:04 | DCINST_ITS ---
Discharge Instructions Diet Discharge Diet: No restrictions Activity Discharge Activity: Return to Normal Activity Dressing / Incision Call your doctor if you observe: Fever of 101 or Higher, Inability to urinate and Inability to have a bowel movement Follow Up Care Please Follow Up With: Melissa Rivas MD When: The office will call the patient to make arrangements. Test Results: Test results from this visit will be discussed in further detail at your follow- up appointment, if applicable. Discharge Plan Admission Attending Provider: Melissa Rivas Primary Care Provider: Brett Flores Discharge Orders/Prescriptions Prescriptions: Continued aspirin 81 MG tablet,chewable 81 mg PO DAILY Patient Comments: LAST DOSE 5 DAYS PRIOR, 02/09/22, for surgery on 02/13/22 ferrous sulfate 325 MG tablet 325 mg PO DAILY acetaminophen 650 MG tablet extended release 1,300 mg PO BID amiodarone 100 MG tablet 100 mg PO DAILY levothyroxine 75 mcg Capsule 75 mcg PO DAILY ascorbic acid (vitamin C) 500 mg Tablet 500 mg PO DAILY Velphoro 500 mg tablet,chewable 500 mg PO BID metoprolol tartrate 25 mg tablet 25 mg PO BID Qty: 180 3RF Discontinued ciprofloxacin HCl 250 mg tablet 250 mg PO BID Referrals / Follow Up: Brett Flores DO [Primary Care Provider] - Disposition Disposition (needs filled in before D/C Order can be placed): Home, Self Care
[2023-08-27 08:48] VITALS: BP 113/52; BP 85/40; PULSE 64; RESP 16; TEMP 36.8; O2SAT 94
[2023-08-27 08:55] VITALS: BP 113/52; BP 95/46; PULSE 65; RESP 16; O2SAT 92
[2023-08-27 09:00] VITALS: BP 102/47; BP 113/52; PULSE 65; RESP 16; O2SAT 95
[2023-08-27 09:02] VITALS: BP 113/50; BP 113/52; PULSE 65; RESP 16; TEMP 36.6; O2SAT 94
[2023-08-27 09:25] VITALS: BP 113/52
[2023-08-27 10:00] LABS: Absolute Lymphocyte Count 1.24 X10^3/uL (0.83-4.51); Absolute Neutrophil Count 11.4 X10^3/uL (2.0-7.7); Basophil# 0.06 X10^3/uL; Basophil% 0.4 % (0-1); Eosinophil# 0.09 X10^3/uL; Eosinophils% 0.7 % (0-5); Hematocrit 33.9 % (37-47); Hemoglobin 10.4 g/dL (12.0-15.0); Lymphocyte # 1.24 X10^3/ul (0.83-4.51); Lymphocyte % 9.2 % (19-41); Mean Corp Hgb Conc 30.7 g/dL (32-36); Mean Corpuscular Hgb 33.2 pg (27.0-32.0); Mean Corpuscular Volume 108.3 fL (81-99); Mean Platelet Vol. 10.5 fl (6.2-12.0); Monocyte# 0.62 X10^3/uL; Monocyte% 4.6 % (0-10); NRBC Flagged by Analyzer 0 % (0-5); Neutrophil # 11.41 X10^3/uL (2.7-7.7); Neutrophil % 84.6 % (47-70); POSITIVE COUNT YES; Platelet Count 176 K/mm3 (150-450); RBC Distribution Width CV 15.1 % (11.6-14.6); RBC Distribution Width SD 59.7 fl (35.1-43.9); Red Blood Count 3.13 M/mm3 (4.2-5.4); White Blood Count 13.5 K/mm3 (4.4-11.0)
[2023-08-27 10:23] LABS: Anion Gap 9 (5-15); BUN 50 mg/dL (7-18); BUN/Creat Ratio 10.2 RATIO (10-20); Chloride 99 mmol/L (98-107); Creatinine, Serum 4.88 mg/dL (0.55-1.02); EST Glomerular Filtration Rate 9 mL/min (>60); Est Glom Filt Rate - Afr Amer 11 mL/min (>60); Estimated Creatinine Clearance 7.61 ml/min; Glucose 149 mg/dL (74-106); Potassium 3.8 mmol/L (3.5-5.1); Sodium Level 133 mmol/L (136-145)
--- NOTE | 2023-08-27 10:48 | SUR.PHASEII ---
pt was awaiting lab results for d/c, labs came back and Dr Rivas reviewed and said ok for d/c. pt has dialysis thursday.
== END 2023-08-27 10:49 | disposition home or self-care (01) ==
LOC: SDC 06:47 → AC 06:47
PROVIDERS: PCP Family Medicine; Referring Provider Urology; Visit Provider Urology
PROC: (CPT 52332; principal; 2023-08-27 08:10)
DX: Z46.6 Encounter for fitting and adjustment of urinary device (principal); Z99.2 Dependence on renal dialysis; N18.6 End stage renal disease; I12.0 Hypertensive chronic kidney disease with stage 5 chronic kidney disease or end stage renal disease; I25.10 Atherosclerotic heart disease of native coronary artery without angina pectoris; E03.9 Hypothyroidism, unspecified; Z79.890 Hormone replacement therapy; Z79.899 Other long term (current) drug therapy; N13.1 Hydronephrosis with ureteral stricture, not elsewhere classified
CPT/HCPCS: 52332; 00910; J7120; 36415; 76000; 80048; 85025; 85027; J7030; J0744; J2405

== ENCOUNTER 2023-12-17 12:57 | Day surgery (SDC) | payer MEDICARE, SELFPAY ==
[2023-12-17] VITALS (7 sets, daily range): BP systolic 99–138; BP diastolic 42–59; PULSE 57–62; RESP 16–20; TEMP 36.3–36.6; O2SAT 95–99; BMI 21.4
--- NOTE | 2023-12-17 13:26 | PCM.PRE.AN2 ---
ASA Classification* ASA Classification ASA Classification: 3 Assessment & Plan Anesthesia* Anesthesia Assessment Anesthesia Assessment: Discussed sedation and/or anesthesia options, risks, benefits, and alternatives with patient/parents/legal guardian/POA. Questions invited. The patient/parents/legal guardian/POA seems to understand and agrees to proceed with anesthesia plan. Reviewed the physical assessment, medical history, allergy history and patient home medications list prior to surgery/procedure/anesthetic and documented any changes. Performed airway and anesthesia risk assessments. Anesthesia Type Anesthesia Type: MAC (see written pre anesthesia record for full assessment) Anesthesia Focused Assessment* Temperature: 97.4 F Pulse Rate: 62 Blood Pressure: 138/59 Respiratory Rate: 16 Pulse Ox: 99 Airway Assessment Mouth opens: >3 cm Mallampati Score: II Focused Labs Anesthesia Preop lab: CBC WBC 13.5 K/mm3 (4.4-11.0) H 08/27/23 09:45 RBC 3.13 M/mm3 (4.2-5.4) L 08/27/23 09:45 Hgb 10.4 g/dL (12.0-15.0) L 08/27/23 09:45 Hct 33.9 % (37-47) L 08/27/23 09:45 Plt Count 176 K/mm3 (150-450) 08/27/23 09:45 CHEMISTRY Potassium 3.8 mmol/L (3.5-5.1) 08/27/23 09:50 Sodium 133 mmol/L (136-145) L 08/27/23 09:50 Magnesium 1.4 mg/dL (1.6-2.6) L 07/11/20 06:06 Phosphorus 3.5 mg/dL (2.5-4.9) 07/31/22 11:30 BUN 50 mg/dL (7-18) H 08/27/23 09:50 Creatinine 4.88 mg/dL (0.55-1.02) H 08/27/23 09:50 Glucose 149 mg/dL (74-106) H 08/27/23 09:50 POC Glucose 139 mg/dL (70-110) H 01/23/17 20:52 TSH 1.74 uIU/mL (0.358-3.74) 08/12/21 05:38 COAG PT 15.7 SECONDS (11.7-14.9) H 08/12/21 05:38 Pre-Assessment Diagnosis/Proposed Procedure Planned Operative Procedure(s): CYSTO BILAT URETERAL STENT CHANGE Anesthesia History 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 When Was Last Pacemaker Check QUESTION #4 FULL TEXT: You/Your Family Experience fever (hyperthermia) with Anesthesia Last Oral Intake Last Oral intake: Last Oral Intake NPO since 00:00 12/17/23 13:21 Meds taken in AM with sips of Yes 12/17/23 13:21 water? Meds patient instructed to see mar 12/17/23 13:21 take am of surgery PONV PONV - associate professor of education: PONV - associate professor of education Female Yes 12/09/23 11:34 HX of Motion Sickness No 12/09/23 11:34 HX of N/V After Surgery No 12/09/23 11:34 Non-Smoker Yes 12/09/23 11:34 Duration of Surgery greater No 12/09/23 11:34 than 60 minutes Number of Risk Factors 2 12/09/23 11:34 PONV Score Moderate Risk 12/09/23 11:34 Height & Weight Height & Weight: Anesthesia: Height & Weight Height 5 ft 3 in 12/17/23 13:21 Weight: 54.885 kg 12/17/23 13:21 Body Mass Index (BMI) 21.4 12/17/23 13:21 Respiratory Assessment Respiratory Assessment - associate professor of education: Respiratory Tract Infection Hx - associate professor of education Hx Respiratory Tract Infection No 12/09/23 11:34 STOP Sleep Apnea STOP Sleep Apnea - associate professor of education: STOP Sleep Apnea - associate professor of education Hx Hypertension Yes: CONTROLLED ON MED 12/09/23 11:34 Hx Sleep Apnea No 12/09/23 11:34 CPAP No 12/09/23 11:34 BIPAP No 12/09/23 11:34 Do you snore loudly (louder No 12/09/23 11:34 than talking or can be heard Do you often feel tired/ No 12/09/23 11:34 fatigued/ sleepy during daytime? Has anyone observed you stop No 12/09/23 11:34 breathing during sleep? STOP Results Negative 12/09/23 11:34 QUESTION #5 FULL TEXT : Do you snore loudly (louder than talking or can be heard through closed doors)? Tobacco Use History Tobacco Use History - associate professor of education: Tobacco Use History - associate professor of education Tobacco Use Non-smoker 10/09/20 14:32 Smoking Status Never smoker 12/09/23 11:34 Hx Tobacco Use No 12/09/23 11:34 Years Smoking Packs Smoked per Day Smoking Cessation Date was within the last 15 years Hx Smoking Cessation Date Hx Smoking Cessation Counseling Hematologic Medial History Hematologic Hx - associate professor of education: Hematologic Medical Hx - director of assisted living Hx of Blood Transfusion No 12/09/23 11:34 Hx of Transfusion in last 3 No 12/09/23 11:34 Months Date of Last Transfusion (if within last 3 months) Ever experience any problems No 12/09/23 11:34 with transfusion(s)? Specify any problems Hx of Preganancy in last 3 No 12/09/23 11:34 Months Nurse Filling Out Transfusion DSCHRIBER 12/09/23 11:34 & Questions: Date: 12/09/23 12/09/23 11:34 Time: 11:35 12/09/23 11:34 Patient unable to answer at this time (ie. confused, unrespo /Reproduction History /Reproductive History - associate professor of education: /Reproductive Hx- associate professor of education Hx Now Gestational Age (in weeks): EDC: Hx Hx Para Hx Section SAB No 12/09/23 11:34 Active Medications Active Medications: Current Medications Generic Name Dose Route Start Last Admin Trade Name Freq PRN Reason Stop Dose Admin Lactated Ringer's 1,000 mls @ 15 mls/hr 12/17/23 13:15 IV .Q48H SRIRAM Sodium Chloride 1,000 mls @ 15 mls/hr 12/17/23 13:20 IV .Q48H SRIRAM PFSH Medical History Low iron Difficult intravenous access Cardiology follow-up encounter Bilateral ureteral obstruction Pyelonephritis Thyroid disease Ambulates with cane History of renal dialysis Easy bruising Wears glasses Anemia Post-menopausal Osteoarthritis Kidney disease Edema Chronic kidney disease Hematuria Abdominal pain Urinary tract infection Obstructive nephropathy Hyperparathyroidism due to renal insufficiency Vitamin deficiency Hypothyroidism 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 Paroxysmal atrial fibrillation Atherosclerosis of coronary artery of [place] heart without angina pectoris Essential (primary) hypertension Stenosis of left carotid artery HLD (hyperlipidemia) Arthritis Hydronephrosis due to obstruction of ureter Normochromic normocytic anemia Acute pyelonephritis Sepsis Home Medications ?Medication ?Instructions ?Recorded ?Last Taken ?Type aspirin 81 mg chewable tablet 81 mg PO DAILY heart health 05/01/16 08/26/23 History ferrous sulfate 325 mg (65 mg 325 mg PO DAILY supplement 01/11/19 08/26/23 History iron) tablet acetaminophen 650 mg 1,300 mg PO BID pain 04/05/19 08/26/23 History tablet,extended release amiodarone 100 mg tablet 100 mg PO DAILY heart 07/06/20 08/27/23 History levothyroxine 75 mcg capsule 75 mcg PO DAILY thyroid 10/09/20 08/27/23 History ascorbic acid (vitamin C) 500 mg 500 mg PO DAILY supplement 01/08/21 08/26/23 History tablet metoprolol tartrate 25 mg tablet 25 mg PO BID blood pressure #180 02/02/23 08/27/23 Rx tabs sucroferric oxyhydroxide 500 mg 500 mg PO BID 04/29/23 08/26/23 History chewable tablet (Velphoro) Allergy/AdvReac Type Severity Reaction Status Date / Time cephalexin Allergy TONGUE Verified 12/17/23 13:16 SWELLING AND PEELING LIPS lisinopril Allergy Hives Verified 12/17/23 13:16 Sulfa (Sulfonamide Allergy Hives Verified 12/17/23 13:16 Antibiotics) nitrofurantoin AdvReac Nausea/Vom/ Verified 12/17/23 13:20 Diarrhea Family History Mother CVA (cerebral vascular accident) Hypertension Alcoholism Heart disease Father Heart disease Surgical History Hx of cystoscopy Hx of appendectomy Hx of bilateral cataract extraction Hx of cystoscopy Hx of hysterectomy (~2016) history Left brachial AV fistula creation (04/11/19) History of left-sided carotid endarterectomy History of coronary artery stent placement (10/09/08) Hx of cataract surgery History of total abdominal hysterectomy and bilateral salpingo-oophorectomy History of ureter stent Social History Smoking Status: Never smoker alcohol intake: never substance use type: does not use Review of Systems (Anesthesia) ROS Narrative System reviewed and no additional complaints, except as documented.
[2023-12-17 13:40] LABS: Hematocrit 36.7 % (37-47); Hemoglobin 11.8 g/dL (12.0-15.0); Mean Corp Hgb Conc 32.2 g/dL (32-36); Mean Corpuscular Hgb 34.4 pg (27.0-32.0); Mean Platelet Vol. 9.7 fl (6.2-12.0); Platelet Count 166 K/mm3 (150-450); RBC Distribution Width CV 14.6 % (11.6-14.6); RBC Distribution Width SD 58.6 fl (35.1-43.9); Red Blood Count 3.43 M/mm3 (4.2-5.4); White Blood Count 5.6 K/mm3 (4.4-11.0)
[2023-12-17] MEDS: 0.9% Normal Saline (500mL Bag) 500 ML 15 ML IV (13:41)
[2023-12-17] MEDS: Ciprofloxacin 200 MG/100 ML BAG 100 MG IV (13:41)
[2023-12-17 13:52] LABS: Anion Gap 7 (5-15); BUN 38 mg/dL (7-18); BUN/Creat Ratio 8.1 RATIO (10-20); Calcium,Total 9.9 mg/dL (8.5-10.1); Chloride 101 mmol/L (98-107); Creatinine, Serum 4.69 mg/dL (0.55-1.02); EST Glomerular Filtration Rate 10 mL/min (>60); Est Glom Filt Rate - Afr Amer 12 mL/min (>60); Estimated Creatinine Clearance 7.78 ml/min; Glucose 91 mg/dL (74-106); Sodium Level 135 mmol/L (136-145)
--- NOTE | 2023-12-17 14:37 | DCINST_ITS ---
Discharge Instructions Diet Discharge Diet: No restrictions Activity Discharge Activity: Return to Normal Activity Dressing / Incision Call your doctor if you observe: Fever of 101 or Higher, Inability to urinate and Inability to have a bowel movement Follow Up Care Please Follow Up With: Melissa Rivas MD When: As scheduled in the office. Test Results: Test results from this visit will be discussed in further detail at your follow- up appointment, if applicable. Discharge Plan Admission Attending Provider: Melissa Rivas Primary Care Provider: Brett Flores Instructions Print Language: Montenegrin Discharge Orders/Prescriptions Prescriptions: Continued aspirin 81 MG tablet,chewable 81 mg PO DAILY Patient Comments: LAST DOSE 5 DAYS PRIOR, 02/09/22, for surgery on 02/13/22 ferrous sulfate 325 MG tablet 325 mg PO DAILY acetaminophen 650 MG tablet extended release 1,300 mg PO BID amiodarone 100 MG tablet 100 mg PO DAILY levothyroxine 75 mcg Capsule 75 mcg PO DAILY ascorbic acid (vitamin C) 500 mg Tablet 500 mg PO DAILY Velphoro 500 mg tablet,chewable 500 mg PO BID metoprolol tartrate 25 mg tablet 25 mg PO BID Qty: 180 3RF Referrals / Follow Up: Brett Flores DO [Primary Care Provider] - Disposition Disposition (needs filled in before D/C Order can be placed): Home, Self Care
--- NOTE | 2023-12-17 14:38 | OP.PCM_ITS ---
Report of Operation Date of Procedure: 12/17/23 Pre-Operative Diagnosis: Bilateral ureteral obstruction Post-Operative Diagnosis: Same Surgery/Procedure Performed:: Cystoscopy with bilateral ureteral stent change Surgeon: Melissa Rivas Type of Anesthesia: MAC Description of Procedure: The patient was taken to the operating room and placed on the operating room table. Anesthesia monitored the head, neck, airway, IV access and vital signs throughout the case. Once anesthesia was appropriate ministered, the patient was placed into dorsal lithotomy position and was prepped and draped in usual sterile fashion. The cystoscope was inserted through the urethra under direct visualization into the urinary bladder. The bladder mucosa was visualized with no findings of mass or foreign body other than the stents. At this time the left ureteral stent was observed, and a 0.035 Glidewire was placed alongside the stent through the ureteral orifice into the renal pelvis as seen on fluoroscopy. The graspers were used to remove the indwelling ureteral stent while holding the wire in place. a new 6 Tamazight 24 cm JJ stent was inserted over the wire with good curling in the renal pelvis as well as the urinary bladder. This process was then repeated on the patient's right side. The patient's bladder was then emptied and the cystoscope was removed. The patient was awakened and taken to the recovery room in good condition. There were no complications during this procedure. Grafts/Implants Used: 6 Tamazight by 24 cm JJ stent x 2 Complications None Admit VTE Documentation VTE Present on Admission: Yes VTE Mechan Device Prophylaxis: SCD's VTE Pharm Prophylaxis ordered?: No Reason prophylaxis not ordered:: Treatment Not Indicated
--- NOTE | 2023-12-17 15:20 | PCM.POST.ANE ---
Anesthesia: Postop Eval I Current Vital Signs Temperature: 97.4 F Pulse Rate: 57 Blood Pressure: 99/42 Respiratory Rate: 20 Pulse Ox: 97 Assessment Airway patent: Yes Spontaneous unlabored respirations: Yes nausea: No Vomiting: No Anesthesia Complication: No Fluid Hydration Crystalloid volume administer (ml): 100 Total IV fluid infused: 100 Progress Note Anesthesia document: Postop Eval 1 completed: Yes
--- NOTE | 2023-12-18 07:34 | POSTOPAN2_ITS ---
Anesthesia Postop Eval I Sum Postop Eval Completion status Anesthesia document: Postop Eval 1 completed: Yes Anesthesia Postop Eval I Summary Anesthesia Postop Eval I Summary: Anesthesia Postop Eval I: Assessment Summary Airway patent Yes 12/17/23 15:20 CRIMINAL INVESTIGATIVE AGENT.CSIR Spontaneous unlabored Yes 12/17/23 15:20 CRIMINAL INVESTIGATIVE AGENT.CSIR respirations Mental status nausea No 12/17/23 15:20 CRIMINAL INVESTIGATIVE AGENT.CSIR Vomiting No 12/17/23 15:20 CRIMINAL INVESTIGATIVE AGENT.CSIR Anesthesia Postop Eval I: Fluid Summary Crystalloid volume administer 100 12/17/23 15:20 CRIMINAL INVESTIGATIVE AGENT.CSIR (ml) Colloids volume administered ( ml) Blood Product volume administered (ml) Total IV fluid infused 100 12/17/23 15:20 CRIMINAL INVESTIGATIVE AGENT.CSIR Anesthesia Postop Eval I: Summary Notes Anesthesia Complication No 12/17/23 15:20 CRIMINAL INVESTIGATIVE AGENT.CSIR Anesthesia Complication Comment: Post-operative progress note Anesthesia: Postop Eval II Evaluation Mental status: Awake Pain Level: 0 nausea: No Vomiting: No
--- NOTE | 2023-12-18 07:34 | PCM.POSTANE2 ---
Anesthesia Postop Eval I Sum Postop Eval Completion status Anesthesia document: Postop Eval 1 completed: Yes Anesthesia Postop Eval I Summary Anesthesia Postop Eval I Summary: Anesthesia Postop Eval I: Assessment Summary Airway patent Yes 12/17/23 15:20 FEED IN WORKER.CSIR Spontaneous unlabored Yes 12/17/23 15:20 FEED IN WORKER.CSIR respirations Mental status nausea No 12/17/23 15:20 FEED IN WORKER.CSIR Vomiting No 12/17/23 15:20 FEED IN WORKER.CSIR Anesthesia Postop Eval I: Fluid Summary Crystalloid volume administer 100 12/17/23 15:20 FEED IN WORKER.CSIR (ml) Colloids volume administered ( ml) Blood Product volume administered (ml) Total IV fluid infused 100 12/17/23 15:20 FEED IN WORKER.CSIR Anesthesia Postop Eval I: Summary Notes Anesthesia Complication No 12/17/23 15:20 FEED IN WORKER.CSIR Anesthesia Complication Comment: Post-operative progress note Anesthesia: Postop Eval II Evaluation Mental status: Awake Pain Level: 0 nausea: No Vomiting: No
== END 2023-12-17 16:10 | disposition home or self-care (01) ==
LOC: SDC 12:58 → AC 13:00
PROVIDERS: PCP Family Medicine; Referring Provider Urology; Visit Provider Urology
PROC: (CPT 52332; principal; 2023-12-17 14:10)
DX: N13.1 Hydronephrosis with ureteral stricture, not elsewhere classified (principal); N18.6 End stage renal disease; I12.0 Hypertensive chronic kidney disease with stage 5 chronic kidney disease or end stage renal disease; I48.0 Paroxysmal atrial fibrillation; E03.9 Hypothyroidism, unspecified; N39.41 Urge incontinence; R35.1 Nocturia; Z79.899 Other long term (current) drug therapy; Z79.82 Long term (current) use of aspirin
CPT/HCPCS: 52332; 00910; 76000; 80048; 85027; J7040; J7120; C2617; J0744; J2405

== ENCOUNTER 2024-03-17 05:54 | Day surgery (SDC) | payer MEDICARE, SELFPAY ==
[2024-03-17] VITALS (8 sets, daily range): BP systolic 115–153; BP diastolic 43–83; PULSE 54–58; RESP 16; TEMP 36.1–36.4; O2SAT 96–100; BMI 21.3
[2024-03-17] MEDS: Ciprofloxacin 200 MG/100 ML BAG 100 MG IV (06:31)
[2024-03-17] MEDS: 0.9% Normal Saline (500mL Bag) 500 ML 15 ML IV (06:31)
--- NOTE | 2024-03-17 06:38 | PRE.ANES_ITS ---
ASA Classification* ASA Classification ASA Classification: 3 Assessment & Plan Anesthesia* Anesthesia Assessment Anesthesia Assessment: Discussed sedation and/or anesthesia options, risks, benefits, and alternatives with patient/parents/legal guardian/POA. Questions invited. The patient/parents/legal guardian/POA seems to understand and agrees to proceed with anesthesia plan. Reviewed the physical assessment, medical history, allergy history and patient home medications list prior to surgery/procedure/anesthetic and documented any changes. Performed airway and anesthesia risk assessments. Anesthesia Type Anesthesia Type: MAC Anesthesia Focused Assessment* Temperature: 97.2 F Pulse Rate: 58 Blood Pressure: 153/83 Respiratory Rate: 16 Pulse Ox: 100 Airway Assessment Mouth opens: >3 cm Mallampati Score: II Focused Labs Anesthesia Preop lab: CBC WBC 5.6 K/mm3 (4.4-11.0) 12/17/23 13:31 RBC 3.43 M/mm3 (4.2-5.4) L 12/17/23 13:31 Hgb 11.8 g/dL (12.0-15.0) L 12/17/23 13:31 Hct 36.7 % (37-47) L 12/17/23 13:31 Plt Count 166 K/mm3 (150-450) 12/17/23 13:31 CHEMISTRY Potassium 4.0 mmol/L (3.5-5.1) 12/17/23 13:31 Sodium 135 mmol/L (136-145) L 12/17/23 13:31 Magnesium 1.4 mg/dL (1.6-2.6) L 07/11/20 06:06 Phosphorus 3.5 mg/dL (2.5-4.9) 07/31/22 11:30 BUN 38 mg/dL (7-18) H 12/17/23 13:31 Creatinine 4.69 mg/dL (0.55-1.02) H 12/17/23 13:31 Glucose 91 mg/dL (74-106) 12/17/23 13:31 POC Glucose 139 mg/dL (70-110) H 01/23/17 20:52 TSH 1.74 uIU/mL (0.358-3.74) 08/12/21 05:38 COAG PT 15.7 SECONDS (11.7-14.9) H 08/12/21 05:38 Pre-Assessment Diagnosis/Proposed Procedure Planned Operative Procedure(s): CYSTO BILAT STENT CHANGE Anesthesia History Anesthesia History - 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 When Was Last Pacemaker Check QUESTION #4 FULL TEXT: You/Your Family Experience fever (hyperthermia) with Anesthesia Last Oral Intake Last Oral intake: Last Oral Intake NPO since 05:00 03/17/24 06:32 Meds taken in AM with sips of Yes 03/17/24 06:32 water? Meds patient instructed to amlodine, metoprolol 03/17/24 06:32 take am of surgery PONV PONV - neuropsychology director: PONV - neuropsychology director Female Yes 03/08/24 12:09 HX of Motion Sickness No 03/08/24 12:09 HX of N/V After Surgery No 03/08/24 12:09 Non-Smoker Yes 03/08/24 12:09 Duration of Surgery greater No 03/08/24 12:09 than 60 minutes Number of Risk Factors 2 03/08/24 12:09 PONV Score Moderate Risk 03/08/24 12:09 Height & Weight Height & Weight: Anesthesia: Height & Weight Height 5 ft 3 in 03/17/24 06:32 Weight: 54.6 kg 03/17/24 06:32 Body Mass Index (BMI) 21.3 03/17/24 06:32 Respiratory Assessment Respiratory Assessment - neuropsychology director: Respiratory Tract Infection Hx - neuropsychology director Hx Respiratory Tract Infection No 03/08/24 12:09 STOP Sleep Apnea STOP Sleep Apnea - neuropsychology director: STOP Sleep Apnea - neuropsychology director Hx Hypertension Yes: CONTROLLED ON MED 03/08/24 12:09 Hx Sleep Apnea No 03/08/24 12:09 CPAP No 03/08/24 12:09 BIPAP No 03/08/24 12:09 Do you snore loudly (louder No 03/08/24 12:09 than talking or can be heard Do you often feel tired/ No 03/08/24 12:09 fatigued/ sleepy during daytime? Has anyone observed you stop No 03/08/24 12:09 breathing during sleep? STOP Results Negative 03/08/24 12:09 QUESTION #5 FULL TEXT : Do you snore loudly (louder than talking or can be heard through closed doors)? 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 Specify any problems Hx of Preganancy in last 3 No 03/08/24 12:09 Months Nurse Filling Out Transfusion DSCHRIBER 03/08/24 12:09 & Questions: Date: 03/08/24 03/08/24 12:09 Time: 12:10 03/08/24 12:09 Patient unable to answer at this time (ie. confused, unrespo /Reproduction History /Reproductive History - neuropsychology director: /Reproductive Hx- neuropsychology director Hx Now Gestational Age (in weeks): EDC: Hx Hx Para Hx Section SAB No 03/08/24 12:09 Active Medications Active Medications: Current Medications Generic Name Dose Route Start Last Admin Trade Name Freq PRN Reason Stop Dose Admin Ciprofloxacin 200 mg in 100 mls @ 100 mls/hr 03/17/24 07:30 03/17/24 06:31 Cipro IV 03/17/24 08:29 100 mls/hr PREOP ONE Administration Sodium Chloride 500 mls @ 15 mls/hr 03/17/24 06:15 03/17/24 06:31 IV 15 mls/hr .[id number] SRIRAM Administration KVO PFSH Medical History Low iron Difficult intravenous access Cardiology follow-up encounter Bilateral ureteral obstruction Pyelonephritis Thyroid disease Ambulates with cane History of renal dialysis Easy bruising Wears glasses Anemia Post-menopausal Osteoarthritis Kidney disease Edema Chronic kidney disease Hematuria Abdominal pain Urinary tract infection Obstructive nephropathy Hyperparathyroidism due to renal insufficiency Vitamin deficiency Hypothyroidism 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 Paroxysmal atrial fibrillation Atherosclerosis of coronary artery of [place] heart without angina pectoris Essential (primary) hypertension Stenosis of left carotid artery HLD (hyperlipidemia) Arthritis Hydronephrosis due to obstruction of ureter Normochromic normocytic anemia Acute pyelonephritis Home Medications ?Medication ?Instructions ?Recorded ?Last Taken ?Type aspirin 81 mg chewable tablet 81 mg PO DAILY heart health 05/01/16 03/14/24 History ferrous sulfate 325 mg (65 mg 325 mg PO DAILY supplement 01/11/19 03/16/24 History iron) tablet acetaminophen 650 mg 1,300 mg PO BID pain 04/05/19 08/26/23 History tablet,extended release amiodarone 100 mg tablet 100 mg PO DAILY heart 07/06/20 03/17/24 History levothyroxine 75 mcg capsule 75 mcg PO DAILY thyroid 10/09/20 03/17/24 History ascorbic acid (vitamin C) 500 mg 500 mg PO DAILY supplement 01/08/21 03/16/24 History tablet sucroferric oxyhydroxide 500 mg 500 mg PO BID 04/29/23 03/16/24 History chewable tablet (Velphoro) metoprolol tartrate 25 mg tablet 25 mg PO BID for blood pressure 01/28/24 03/17/24 Rx #180 TABLETS Allergy/AdvReac Type Severity Reaction Status Date / Time cephalexin Allergy TONGUE Verified 03/17/24 06:30 SWELLING AND PEELING LIPS lisinopril Allergy Hives Verified 03/17/24 06:30 Sulfa (Sulfonamide Allergy Hives Verified 03/17/24 06:30 Antibiotics) nitrofurantoin AdvReac Nausea/Vom/ Verified 03/17/24 06:30 Diarrhea Family History Mother CVA (cerebral vascular accident) Hypertension Alcoholism Heart disease Father Heart disease Surgical History Hx of cystoscopy Hx of appendectomy Hx of bilateral cataract extraction Hx of cystoscopy Hx of hysterectomy (~2016) history Left brachial AV fistula creation (04/11/19) History of left-sided carotid endarterectomy History of coronary artery stent placement (10/09/08) Hx of cataract surgery History of total abdominal hysterectomy and bilateral salpingo-oophorectomy History of ureter stent Social History Smoking Status: Never smoker alcohol intake: never substance use type: does not use Review of Systems (Anesthesia) ROS Narrative System reviewed and no additional complaints, except as documented.
--- NOTE | 2024-03-17 08:18 | PCM.POST.ANE ---
Anesthesia: Postop Eval I Current Vital Signs Temperature: 97 F Pulse Rate: 54 Blood Pressure: 115/46 Respiratory Rate: 16 Pulse Ox: 97 Oxygen Delivery Method: Room Air Assessment Airway patent: Yes Spontaneous unlabored respirations: Yes Mental status: Awake and Calm nausea: No Vomiting: No Anesthesia Complication: No Fluid Hydration Crystalloid volume administer (ml): 100 Total IV fluid infused: 100 Progress Note Anesthesia document: Postop Eval 1 completed: Yes
--- NOTE | 2024-03-17 08:38 | DCINST_ITS ---
Discharge Instructions Diet Discharge Diet: No restrictions Activity Discharge Activity: Return to Normal Activity Dressing / Incision Call your doctor if you observe: Fever of 101 or Higher, Inability to urinate and Inability to have a bowel movement Follow Up Care Please Follow Up With: Melissa Rivas MD Test Results: Test results from this visit will be discussed in further detail at your follow- up appointment, if applicable. Discharge Plan Admission Attending Provider: Melissa Rivas Primary Care Provider: Brett Flores Instructions Print Language: Khmer Discharge Orders/Prescriptions Prescriptions: Continued aspirin 81 MG tablet,chewable 81 mg PO DAILY Patient Comments: LAST DOSE 5 DAYS PRIOR, 02/09/22, for surgery on 02/13/22 ferrous sulfate 325 MG tablet 325 mg PO DAILY acetaminophen 650 MG tablet extended release 1,300 mg PO BID amiodarone 100 MG tablet 100 mg PO DAILY levothyroxine 75 mcg Capsule 75 mcg PO DAILY ascorbic acid (vitamin C) 500 mg Tablet 500 mg PO DAILY Velphoro 500 mg tablet,chewable 500 mg PO BID metoprolol tartrate 25 mg tablet 25 mg PO BID Qty: 180 3RF Referrals / Follow Up: Brett Flores DO [Primary Care Provider] - Disposition Disposition (needs filled in before D/C Order can be placed): Home, Self Care
--- NOTE | 2024-03-17 08:39 | OP.PCM_ITS ---
Report of Operation Date of Procedure: 03/17/24 Pre-Operative Diagnosis: Bilateral ureteral obstruction Post-Operative Diagnosis: Same Surgery/Procedure Performed:: Cystoscopy with bilateral ureteral stent change Surgeon: Melissa Rivas Description of Procedure: The patient is an 83-year-old female with bilateral ureteral obstruction and she presents for her routine every 3 month ureteral stent change under anesthesia. Informed consent was obtained. Her urine culture has been managed with antibiotics preoperatively. The patient was taken to the operating room and placed on the operating room table. Anesthesia monitored the head, neck, airway, IV access and vital signs throughout the case. Once anesthesia was appropriately administered, she was placed into dorsolithotomy position was prepped and draped in usual sterile fashion. The cystoscope was inserted through the urethra under direct visualization into the urinary bladder. The left ureteral orifice was identified and a 0.035 Glidewire was placed alongside of the left ureteral stent and advanced into the renal pelvis. The indwelling stent was then removed and the wire was utilized to place a new 6 [place] 24 cm JJ stent with good positioning in the renal pelvis as well as the urinary bladder. This process was then repeated on the patient's right side with no issues. The patient's bladder was then emptied and the cystoscope was removed. She was awakened and taken to the recovery room in good condition. There were no complications. Grafts/Implants Used: 6 x 24 JJ stent x 2 Complications None Admit VTE Documentation VTE Present on Admission: Yes VTE Mechan Device Prophylaxis: SCD's VTE Pharm Prophylaxis ordered?: No Reason prophylaxis not ordered:: Treatment Not Indicated
--- NOTE | 2024-03-17 10:27 | POSTOPAN2_ITS ---
Anesthesia Postop Eval I Sum Postop Eval Completion status Anesthesia document: Postop Eval 1 completed: Yes Anesthesia Postop Eval I Summary Anesthesia Postop Eval I Summary: Anesthesia Postop Eval I: Assessment Summary Airway patent Yes 03/17/24 08:19 INTELLIGENCE OPERATIONS.RIAZOBNikolai Spontaneous unlabored Yes 03/17/24 08:19 INTELLIGENCE OPERATIONS.ISSAC respirations Mental status Awake,Calm 03/17/24 08:19 INTELLIGENCE OPERATIONS.ISSAC nausea No 03/17/24 08:19 INTELLIGENCE OPERATIONS.ISSAC Vomiting No 03/17/24 08:19 INTELLIGENCE OPERATIONS.ISSAC Anesthesia Postop Eval I: Fluid Summary Crystalloid volume administer 100 03/17/24 08:19 INTELLIGENCE OPERATIONS.RIAZOBY (ml) Colloids volume administered ( ml) Blood Product volume administered (ml) Total IV fluid infused 100 03/17/24 08:19 INTELLIGENCE OPERATIONS.ISSAC Anesthesia Postop Eval I: Summary Notes Anesthesia Complication No 03/17/24 08:19 INTELLIGENCE OPERATIONS.ISSAC Anesthesia Complication Comment: Post-operative progress note Anesthesia: Postop Eval II Evaluation Mental status: Awake Pain Level: 0 nausea: No Vomiting: No
--- NOTE | 2024-03-17 10:27 | PCM.POSTANE2 ---
Anesthesia Postop Eval I Sum Postop Eval Completion status Anesthesia document: Postop Eval 1 completed: Yes Anesthesia Postop Eval I Summary Anesthesia Postop Eval I Summary: Anesthesia Postop Eval I: Assessment Summary Airway patent Yes 03/17/24 08:19 [address] WORKER.RIAZOBNikolai Spontaneous unlabored Yes 03/17/24 08:19 [address] WORKER.ISSAC respirations Mental status Awake,Calm 03/17/24 08:19 [address]IVE WORKER.ISSAC nausea No 03/17/24 08:19 [address]IVE WORKER.ISSAC Vomiting No 03/17/24 08:19 [address]IVE WORKER.ISSAC Anesthesia Postop Eval I: Fluid Summary Crystalloid volume administer 100 03/17/24 08:19 [address]IVE WORKER.RIAZOBY (ml) Colloids volume administered ( ml) Blood Product volume administered (ml) Total IV fluid infused 100 03/17/24 08:19 [address] WORKER.ISSAC Anesthesia Postop Eval I: Summary Notes Anesthesia Complication No 03/17/24 08:19 [address] WORKER.ISSAC Anesthesia Complication Comment: Post-operative progress note Anesthesia: Postop Eval II Evaluation Mental status: Awake Pain Level: 0 nausea: No Vomiting: No
== END 2024-03-17 09:21 | disposition home or self-care (01) ==
LOC: SDC 05:56 → AC 05:57
PROVIDERS: PCP Family Medicine; Referring Provider Urology; Visit Provider Urology
PROC: (CPT 52332; principal; 2024-03-17 07:20)
DX: N13.1 Hydronephrosis with ureteral stricture, not elsewhere classified (principal); I12.0 Hypertensive chronic kidney disease with stage 5 chronic kidney disease or end stage renal disease; N18.6 End stage renal disease; I25.10 Atherosclerotic heart disease of native coronary artery without angina pectoris; E03.9 Hypothyroidism, unspecified; Z79.890 Hormone replacement therapy; Z90.710 Acquired absence of both cervix and uterus; Z79.82 Long term (current) use of aspirin; Z79.899 Other long term (current) drug therapy; E78.5 Hyperlipidemia, unspecified
CPT/HCPCS: 52332; 76000; J7040; J0744; J2405

== ENCOUNTER 2024-07-14 05:58 | Day surgery (SDC) | payer MEDICARE, SELFPAY ==
[2024-07-14] VITALS (8 sets, daily range): BP systolic 84–142; BP diastolic 43–57; PULSE 59; RESP 16–18; TEMP 36.3–37.3; O2SAT 89–96; BMI 20.2
[2024-07-14 06:40] LABS: Hematocrit 31.3 % (37-47); Hemoglobin 10.1 g/dL (12.0-15.0); Mean Corp Hgb Conc 32.3 g/dL (32-36); Mean Corpuscular Hgb 34.4 pg (27.0-32.0); Mean Corpuscular Volume 106.5 fL (81-99); Mean Platelet Vol. 8.9 fl (6.2-12.0); Platelet Count 281 K/mm3 (150-450); RBC Distribution Width CV 15.7 % (11.6-14.6); RBC Distribution Width SD 60.1 fl (35.1-43.9); Red Blood Count 2.94 M/mm3 (4.2-5.4); White Blood Count 13.4 K/mm3 (4.4-11.0)
[2024-07-14] MEDS: 0.9% Normal Saline (1000mL) 1,000 ML 15 ML IV (06:46)
[2024-07-14] MEDS: Ciprofloxacin 200 MG/100 ML BAG 100 MG IV (06:47)
[2024-07-14 07:01] LABS: Anion Gap 10 (5-15); BUN 47 mg/dL (7-18); BUN/Creat Ratio 8.8 RATIO (10-20); Calcium,Total 7.6 mg/dL (8.5-10.1); Chloride 100 mmol/L (98-107); Creatinine, Serum 5.35 mg/dL (0.55-1.02); EST Glomerular Filtration Rate 8 mL/min (>60); Est Glom Filt Rate - Afr Amer 10 mL/min (>60); Estimated Creatinine Clearance 6.77 ml/min; Glucose 88 mg/dL (74-106); Sodium Level 139 mmol/L (136-145)
--- NOTE | 2024-07-14 07:25 | PRE.ANES_ITS ---
ASA Classification* ASA Classification ASA Classification: 3 Assessment & Plan Anesthesia* Anesthesia Assessment Anesthesia Assessment: Discussed sedation and/or anesthesia options, risks, benefits, and alternatives with patient/parents/legal guardian/POA. Questions invited. The patient/parents/legal guardian/POA seems to understand and agrees to proceed with anesthesia plan. Reviewed the physical assessment, medical history, allergy history and patient home medications list prior to surgery/procedure/anesthetic and documented any changes. Performed airway and anesthesia risk assessments. Anesthesia Type Anesthesia Type: MAC History Source History Obtained from:: Patient and Chart Anesthesia Focused Assessment* Temperature: 99.1 F Pulse Rate: 59 Blood Pressure: 142/57 Respiratory Rate: 18 Pulse Ox: 95 Oxygen Delivery Method: Room Air Airway Assessment Mouth opens: >3 cm Mallampati Score: I Teeth Condition: Intact Neck Range of motion (ROM): Limited ROM Focused Labs Anesthesia Preop lab: CBC WBC 13.4 K/mm3 (4.4-11.0) H 07/14/24 06: 5 RBC 2.94 M/mm3 (4.2-5.4) L 07/14/24 06:07/14/24 Hgb 10.1 g/dL (12.0-15.0) L 07/14/24 06: 5 Hct 31.3 % (37-47) L 07/14/24 06:07/14/24 Plt Count 281 K/mm3 (150-450) 07/14/24 06:07/14/24 CHEMISTRY Potassium 4.0 mmol/L (3.5-5.1) 07/14/24 06:07/14/24 Sodium 139 mmol/L (136-145) 07/14/24 06:07/14/24 Magnesium 1.4 mg/dL (1.6-2.6) L 07/11/20 06:07/11/20 Phosphorus 3.5 mg/dL (2.5-4.9) 07/31/22 11:30 07/31/22 BUN 47 mg/dL (7-18) H 07/14/24 06:07/14/24 Creatinine 5.35 mg/dL (0.55-1.02) H 07/14/24 06: Glucose 88 mg/dL (74-106) 07/14/24 06:33 07/14/24 POC Glucose 139 mg/dL (70-110) H 01/23/17 20:52 01/23/17 TSH 1.74 uIU/mL (0.358-3.74) 08/12/21 05:38 COAG PT 15.7 SECONDS (11.7-14.9) H 08/12/21 05:38 03/0 12/27 Pre-Assessment Diagnosis/Proposed Procedure Planned Operative Procedure(s): CYSTO BILAT URETERAL STENT CHANGE Anesthesia History 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 When Was Last Pacemaker Check QUESTION #4 FULL TEXT: You/Your Family Experience fever (hyperthermia) with Anesthesia Last Oral Intake Last Oral intake: Last Oral Intake NPO since 19:30 07/14/24 06:41 Meds taken in AM with sips of Yes 07/14/24 06:41 water? 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 - art education professor Female Yes 07/04/24 15:12 HX of Motion Sickness No 07/04/24 15:12 HX of N/V After Surgery No 07/04/24 15:12 Non-Smoker Yes 07/04/24 15:12 Duration of Surgery greater No 07/04/24 15:12 than 60 minutes Number of Risk Factors 2 07/04/24 15:12 PONV Score Moderate Risk 07/04/24 15:12 Height & Weight Height & Weight: Anesthesia: Height & Weight Height 5 ft 3 in 07/14/24 06:41 Weight: 52 kg 07/14/24 06:41 Body Mass Index (BMI) 20.2 07/14/24 06:41 Respiratory Assessment Respiratory Assessment - art education professor: Respiratory Tract Infection Hx - art education professor Hx Respiratory Tract Infection No 07/04/24 15:12 STOP Sleep Apnea STOP Sleep Apnea - art education professor: STOP Sleep Apnea - art education professor Hx Hypertension Yes: CONTROLLED ON MED 07/04/24 15:12 Hx Sleep Apnea No 07/04/24 15:12 CPAP No 07/04/24 15:12 BIPAP No 07/04/24 15:12 Do you snore loudly (louder No 07/04/24 15:12 than talking or can be heard Do you often feel tired/ No 07/04/24 15:12 fatigued/ sleepy during daytime? Has anyone observed you stop No 07/04/24 15:12 breathing during sleep? STOP Results Negative 07/04/24 15:12 QUESTION #5 FULL TEXT : Do you snore loudly (louder than talking or can be heard through closed doors)? 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 Specify any problems Hx of Preganancy in last 3 No 07/04/24 15:12 Months Nurse Filling Out Transfusion DSCHRIBER 07/04/24 15:12 & Questions: Date: 07/04/24 07/04/24 15:12 Time: 15:13 07/04/24 15:12 Patient unable to answer at this time (ie. confused, unrespo /Reproduction History /Reproductive History - art education professor: /Reproductive Hx- art education professor Hx Now Gestational Age (in weeks): EDC: Hx Hx Para Hx Section SAB No 07/04/24 15:12 Active Medications Active Medications: Current Medications Generic Name Dose Route Start Last Admin Trade Name [place] PRN Reason Stop Dose Admin Ciprofloxacin 200 mg in 100 mls @ 100 mls/hr 07/14/24 07:30 07/14/24 06:47 Cipro IV 07/14/24 08:29 100 mls/hr PREOP ONE Administration Sodium Chloride 1,000 mls @ 15 mls/hr 07/14/24 06:10 07/14/24 06:46 IV 07/19/24 19:29 15 mls/hr .Q48H SRIRAM Administration Protocol PFSH Medical History Low iron Difficult intravenous access Cardiology follow-up encounter Bilateral ureteral obstruction Pyelonephritis Thyroid disease Ambulates with cane History of renal dialysis Easy bruising Wears glasses Anemia Post-menopausal Osteoarthritis Kidney disease Edema Chronic kidney disease Hematuria Abdominal pain Urinary tract infection Obstructive nephropathy Hyperparathyroidism due to renal insufficiency Vitamin deficiency Hypothyroidism 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 Paroxysmal atrial fibrillation Atherosclerosis of coronary artery of [place] heart without angina pectoris Essential (primary) hypertension Stenosis of left carotid artery HLD (hyperlipidemia) Arthritis Hydronephrosis due to obstruction of ureter Normochromic normocytic anemia Acute pyelonephritis Home Medications ?Medication ?Instructions ?Recorded ?Last Taken ?Type aspirin 81 mg chewable tablet 81 mg PO DAILY heart hea lth 05/01/16 07/11/24 History ferrous sulfate 325 mg (65 mg 325 mg PO DAILY suppleme nt 01/11/19 07/13/24 History iron) tablet acetaminophen 650 mg 1,300 mg PO BID pain 9 07/14/24 History tablet,extended release amiodarone 100 mg tablet 100 mg PO DAILY heart 07/14/24 History levothyroxine 75 mcg capsule 75 mcg PO DAILY thyroid 0 10/09/20 07/14/24 History ascorbic acid (vitamin C) 500 mg 500 mg PO DAILY suppl ement 01/08/21 07/13/24 History tablet sucroferric oxyhydroxide 500 mg 500 mg PO BID PHOSPHOR US BINDER 04/29/23 07/13/24 History chewable tablet (Velphoro) metoprolol tartrate 25 mg tablet 25 mg PO BID for bloo d pressure 01/28/24 07/14/24 Rx #180 TABLETS Allergy/AdvReac Type Severity Reaction Status Date / Time cephalexin Allergy TONGUE Verified 07/14/24 06:39 SWELLING AND PEELING LIPS lisinopril Allergy Hives Verified 07/14/24 06:39 Sulfa (Sulfonamide Allergy Hives Verified 07/14/24 06:39 Antibiotics) nitrofurantoin AdvReac Nausea/Vom/ Verified 07/14/24 06:39 Diarrhea Family History Mother CVA (cerebral vascular accident) Hypertension Alcoholism Heart disease Father Heart disease Surgical History (Updated 07/04/24 @ 15:15 by Nancy Pedroza) Hx of cystoscopy Hx of appendectomy Hx of bilateral cataract extraction Hx of cystoscopy Hx of hysterectomy (~2016) history Left brachial AV fistula creation (04/11/19) History of left-sided carotid endarterectomy History of coronary artery stent placement (10/09/08) Hx of cataract surgery History of total abdominal hysterectomy and bilateral salpingo-oophorectomy History of ureter stent Social History Smoking Status: Never smoker alcohol intake: never substance use type: does not use Review of Systems (Anesthesia) ROS Narrative System reviewed and no additional complaints, except as documented.
--- NOTE | 2024-07-14 08:05 | POSTOP.ANE_ITS ---
Anesthesia: Postop Eval I Current Vital Signs Temperature: 98.1 F Pulse Rate: 59 Blood Pressure: 85/46 (JOGGLE PRESS OPERATOR to bolus 250ml of crystalloid) Respiratory Rate: 16 Pulse Ox: 95 Oxygen Delivery Method: Nasal Cannula Oxygen Flow Rate (L/min): 2 Assessment Airway patent: Yes Spontaneous unlabored respirations: Yes Mental status: Awake and Calm nausea: No Vomiting: No Anesthesia Complication: No Fluid Hydration Crystalloid volume administer (ml): 200 Total IV fluid infused: 200 Progress Note Anesthesia document: Postop Eval 1 completed: Yes
--- NOTE | 2024-07-14 08:08 | EX.PCM.DISCH ---
Discharge Instructions Diet Discharge Diet: No restrictions Activity Discharge Activity: Return to Normal Activity Dressing / Incision Call your doctor if you observe: Fever of 101 or Higher, Inability to urinate and Inability to have a bowel movement Follow Up Care Please Follow Up With: Melissa Rivas MD When: The office will call to schedule the next procedure in 3 months. Test Results: Test results from this visit will be discussed in further detail at your follow-up appointment, if applicable. Discharge Plan Admission Attending Provider: Melissa Rivas Primary Care Provider: Brett Flores Instructions Print Language: Beninese Discharge Orders/Prescriptions Prescriptions: New ciprofloxacin HCl [Cipro] 250 mg tablet 250 mg PO BID Qty: 6 0RF Continued aspirin 81 MG tablet,chewable 81 mg PO DAILY Patient Comments: LAST DOSE 5 DAYS PRIOR, 02/09/22, for surgery on 02/13/22 ferrous sulfate 325 MG tablet 325 mg PO DAILY acetaminophen 650 MG tablet extended release 1,300 mg PO BID amiodarone 100 MG tablet 100 mg PO DAILY levothyroxine 75 mcg Capsule 75 mcg PO DAILY ascorbic acid (vitamin C) 500 mg Tablet 500 mg PO DAILY Velphoro 500 mg tablet,chewable 500 mg PO BID metoprolol tartrate 25 mg tablet 25 mg PO BID Qty: 180 3RF Referrals / Follow Up: Brett Flores DO [Primary Care Provider] - Disposition Disposition (needs filled in before D/C Order can be placed): Home, Self Care
--- NOTE | 2024-07-14 08:11 | OP.PCM_ITS ---
Operative Report (Standard) Operative Information Date of Procedure: 07/14/24 Pre-Operative Diagnosis: Bilateral ureteral obstruction Post-Operative Diagnosis: Same Surgery/Procedure Performed: Cystoscopy with bilateral ureteral stent change telephone answerer: Yes Lead Vulcanizing Operator: Estephanie Ribera Tasks completed by assistant professor of forestry: Other (Helping with stent insertion) Additional hygiene assistant?: No Type of Anesthesia: MAC RN Documented Start/Stop Times: Operation Date: 07/14/24 07:30 Case Time Into Pre-Op 07/14/24 06:07 Out of Pre-Op 07/14/24 07:26 Anesthesia Start 07/14/24 07:30 Into Room 07/14/24 07:30 Procedure Start 07/14/24 07:44 Procedure End 07/14/24 07:54 Anesthesia End 07/14/24 08:01 Out of Room 07/14/24 08:01 Into Recovery 07/14/24 08:05 Procedure Start Time: 07:44 Procedure Stop Time: 07:54 Select all DRAINS/GRAFTS/IMPLANTS that apply: Drains Drain details: 6 [place] x 24 centimeter JJ stent x 2 Estimated Blood Loss: <5cc Specimen collected: No Description of surgery: The patient is an 83-year-old female who presents for her routine every 3-month bilateral ureteral stent change and cystoscopy. Informed consent was obtained. She was taken to the operating room and placed in a supine position on the operating room table. Anesthesia monitored the head, neck, airway, IV access and vital signs throughout the case. Once anesthesia was appropriately administered, she was placed into dorsolithotomy position was prepped and draped in usual sterile fashion. The cystoscope was inserted through the urethra under direct visualization into the urinary bladder. There was mucus and debris within the urine and this was flushed out. The right ureteral stent was then grasped and brought to the urethral meatus where it was backloaded with a 0.035 Glidewire. The Glidewire advanced into the renal pelvis and the stent was removed. The wire was then backloaded into the cystoscope using the pusher. A new 6 [place] 24 cm JJ stent was placed over the Glidewire and advanced into the renal pelvis with good positioning there as well as the urinary bladder. The same exact process was repeated on the patient's left side without difficulty. Fluoroscopic visualization confirmed good positioning of bilateral stents. Her bladder was emptied and the cystoscope was removed. She was awakened and taken to the recovery room in good condition. Surgical Findings: 6 [place] x 24 cm JJ stent x 2 Complications Complications: No Admit VTE Documentation VTE Present on Admission: Yes VTE Mechan Device Prophylaxis: SCD's VTE Pharm Prophylaxis ordered?: No Reason prophylaxis not ordered: Treatment Not Indicated
--- NOTE | 2024-07-14 08:13 | SUR.PHASEI ---
250ml 0/9% NS bolus given in pacu per g dotterer regional education manager for pressures
--- NOTE | 2024-07-14 10:43 | POSTOPAN2_ITS ---
Anesthesia Postop Eval I Sum Postop Eval Completion status Anesthesia document: Postop Eval 1 completed: Yes Anesthesia Postop Eval I Summary Anesthesia Postop Eval I Summary: Anesthesia Postop Eval I: Assessment Summary Airway patent Yes 07/14/24 08:07 CRM CAMPAIGN [email or web address] Spontaneous unlabored Yes 07/14/24 08:07 CRM CAMPAIGN MANAGER.[email or web address] respirations Mental status Awake,Calm 07/14/24 08:07 CRM CAMPAIGN MANAGER.GDOTT nausea No 07/14/24 08:07 CRM CAMPAIGN MANAGER.GDOTT Vomiting No 07/14/24 08:07 CRM CAMPAIGN MANAGER.GDOTT Anesthesia Postop Eval I: Fluid Summary Crystalloid volume administer 200 07/14/24 08:07 CRM CAMPAIGN MANAGER.GDOTT (ml) Colloids volume administered ( ml) Blood Product volume administered (ml) Total IV fluid infused 200 07/14/24 08:07 CRM CAMPAIGN MANAGER.GDOTT Anesthesia Postop Eval I: Summary Notes Anesthesia Complication No 07/14/24 08:07 CRM CAMPAIGN MANAGER.GDOTT Anesthesia Complication Comment: Post-operative progress note Anesthesia: Postop Eval II Evaluation Mental status: Awake and Calm Pain Level: 0 nausea: No Vomiting: No
--- NOTE | 2024-07-14 10:43 | PCM.POSTANE2 ---
Anesthesia Postop Eval I Sum Postop Eval Completion status Anesthesia document: Postop Eval 1 completed: Yes Anesthesia Postop Eval I Summary Anesthesia Postop Eval I Summary: Anesthesia Postop Eval I: Assessment Summary Airway patent Yes 07/14/24 08:07 RIBBON [email or web address] Spontaneous unlabored Yes 07/14/24 08:07 RIBBON TIER.GDOTT respirations Mental status Awake,Calm 07/14/24 08:07 RIBBON [email or web address] nausea No 07/14/24 08:07 RIBBON TIER.GDOTT Vomiting No 07/14/24 08:07 RIBBON [email or web address].GDOTT Anesthesia Postop Eval I: Fluid Summary Crystalloid volume administer 200 07/14/24 08:07 RIBBON [email or web address] (ml) Colloids volume administered ( ml) Blood Product volume administered (ml) Total IV fluid infused 200 07/14/24 08:07 RIBBON [email or web address] Anesthesia Postop Eval I: Summary Notes Anesthesia Complication No 07/14/24 08:07 RIBBON [email or web address] Anesthesia Complication Comment: Post-operative progress note Anesthesia: Postop Eval II Evaluation Mental status: Awake and Calm Pain Level: 0 nausea: No Vomiting: No
== END 2024-07-14 08:56 | disposition home or self-care (01) ==
LOC: SDC 05:59 → AC 06:00
PROVIDERS: PCP Family Medicine; Referring Provider Urology; Visit Provider Urology
PROC: (CPT 52332; principal; 2024-07-14 07:20)
DX: N13.6 Pyonephrosis (principal); N18.6 End stage renal disease; I12.0 Hypertensive chronic kidney disease with stage 5 chronic kidney disease or end stage renal disease; I25.10 Atherosclerotic heart disease of native coronary artery without angina pectoris; E03.9 Hypothyroidism, unspecified; Z79.890 Hormone replacement therapy; Z79.899 Other long term (current) drug therapy; Z90.710 Acquired absence of both cervix and uterus; E78.5 Hyperlipidemia, unspecified
CPT/HCPCS: 52332; 00910; 76000; 80048; 85027; C2617; J0744; J2405

== ENCOUNTER 2024-11-24 07:02 | Day surgery (SDC) | payer MEDICARE, SELFPAY ==
--- NOTE | 2024-11-21 11:42 | EKG12_ITS ---
Test Reason : PRE OP Blood Pressure : */* mmHG Vent. Rate : 61 BPM Atrial Rate : 61 BPM P-R Int : 234 ms QRS Dur : 90 ms QT Int : 480 ms P-R-T Axes : 89 86 71 degrees QTcB Int : 483 ms Sinus rhythm with 1st degree A-V block Minimal voltage criteria for LVH, may be normal variant Borderline ECG Confirmed by EVELIO RIZZO, ELEANOR ([id number]), editor in chief ABIMAEL OBRIEN ([id number]) on 11/22/2024 8:23:48 AM Referred By: Melissa Rivas Confirmed By: ELEANOR FRASER MD
[2024-11-21 12:50] LABS: Absolute Lymphocyte Count 2.22 X10^3/uL (0.83-4.51); Absolute Neutrophil Count 6.6 X10^3/uL (2.0-7.7); Eosinophil# 0.34 X10^3/uL; Eosinophils% 3.3 % (0-5); Hematocrit 34.8 % (37-47); Hemoglobin 11.2 g/dL (12.0-15.0); Lymphocyte # 2.22 X10^3/ul (0.83-4.51); Lymphocyte % 21.8 % (19-41); Mean Corp Hgb Conc 32.2 g/dL (32-36); Mean Corpuscular Hgb 35.2 pg (27.0-32.0); Mean Corpuscular Volume 109.4 fL (81-99); Mean Platelet Vol. 9.1 fl (6.2-12.0); Monocyte# 0.92 X10^3/uL; NRBC Flagged by Analyzer 0 % (0-5); Neutrophil # 6.56 X10^3/uL (2.7-7.7); Neutrophil % 64.3 % (47-70); POSITIVE MORPHOLOGY YES; Platelet Count 260 K/mm3 (150-450); RBC Distribution Width CV 18.5 % (11.6-14.6); RBC Distribution Width SD 75.3 fl (35.1-43.9); Red Blood Count 3.18 M/mm3 (4.2-5.4); White Blood Count 10.2 K/mm3 (4.4-11.0)
[2024-11-21 12:57] LABS: Differential Indicated SCAN CRITERIA MET
[2024-11-21 13:06] LABS: Anion Gap 16 (5-15); BUN 53 mg/dL (4-19); BUN/Creat Ratio 10.7 RATIO (10-20); Calcium,Total 9.4 mg/dL (7.6-11.0); Carbon Dioxide 23.3 mmol/L (21.0-32.0); Chloride 97 mmol/L (98-108); Creatinine, Serum 4.99 mg/dL (0.70-1.20); EST Glomerular Filtration Rate 8 (>60); Glucose 89 mg/dL (70-99); Potassium 4.6 mmol/L (3.3-5.1); Sodium Level 136 mmol/L (133-145)
[2024-11-21 13:25] LABS: Anisocytosis 1+; Differential Comment SCANNED
--- NOTE | 2024-11-21 13:42 | PAT.ANESEVAL ---
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 When Was Last Pacemaker Check QUESTION #4 FULL TEXT: You/Your Family Experience fever (hyperthermia) with Anesthesia Last Oral Intake Last Oral intake: Last Oral Intake NPO since Meds taken in AM with sips of water? Meds patient instructed to take am of surgery PONV PONV - candy starch mold printer: PONV - candy starch mold printer Female Yes 11/17/24 11:22 HX of Motion Sickness No 11/17/24 11:22 HX of N/V After Surgery No 11/17/24 11:22 Non-Smoker Yes 11/17/24 11:22 Duration of Surgery greater Yes 11/17/24 11:22 than 60 minutes Number of Risk Factors 3 11/17/24 11:22 PONV Score Moderate Risk 11/17/24 11:22 Height & Weight Height & Weight: Anesthesia: Height & Weight Height 5 ft 3 in 07/14/24 06:41 Respiratory Assessment Respiratory Assessment - candy starch mold printer: Respiratory Tract Infection Hx - candy starch mold printer Hx Respiratory Tract Infection No 11/17/24 11:22 STOP Sleep Apnea STOP Sleep Apnea - candy starch mold printer: STOP Sleep Apnea - candy starch mold printer Hx Hypertension Yes: CONTROLLED WITH MEDS 11/17/24 11:22 Hx Sleep Apnea No 11/17/24 11:22 CPAP No 07/04/24 15:12 BIPAP No 07/04/24 15:12 Do you snore loudly (louder No 11/17/24 11:22 than talking or can be heard Do you often feel tired/ No 11/17/24 11:22 fatigued/ sleepy during daytime? Has anyone observed you stop No 11/17/24 11:22 breathing during sleep? STOP Results Negative 11/17/24 11:22 QUESTION #5 FULL TEXT : Do you snore loudly (louder than talking or can be heard through closed doors)? Tobacco Use History Tobacco Use History - candy starch mold printer: Tobacco Use History - candy starch mold printer Tobacco Use Non-smoker 10/09/20 14:32 Smoking Status Never smoker 11/17/24 11:22 Hx Tobacco Use No 11/17/24 11:22 Years Smoking Packs Smoked per Day Smoking Cessation Date was within the last 15 years Hx Smoking Cessation Date Hx Smoking Cessation Counseling Hematologic Medial History Hematologic Hx - candy starch mold printer: Hematologic Medical Hx - director of critical care Hx of Blood Transfusion No 11/17/24 11:22 Hx of Transfusion in last 3 No 11/17/24 11:22 Months Date of Last Transfusion (if within last 3 months) Ever experience any problems No 11/17/24 11:22 with transfusion(s)? Specify any problems Hx of Preganancy in last 3 No 11/17/24 11:22 Months Nurse Filling Out Transfusion [email or web address] 11/17/24 11:22 & Questions: Date: 11/17/24 11/17/24 11:22 Time: 11:23 11/17/24 11:22 Patient unable to answer at this time (ie. confused, unrespo /Reproduction History /Reproductive History - candy starch mold printer: /Reproductive Hx- candy starch mold printer Hx Now No 11/17/24 11:22 Gestational Age (in weeks): EDC: Hx Hx Para Hx Section SAB No 11/17/24 11:22 [facility] Medical History (Updated 11/17/24 @ 11:27 by Maximo Leary) Heartburn Low iron Difficult intravenous access Cardiology follow-up encounter Bilateral ureteral obstruction Pyelonephritis Thyroid disease Ambulates with cane History of renal dialysis Easy bruising Wears glasses Anemia Post-menopausal Osteoarthritis Kidney disease Edema Chronic kidney disease Hematuria Abdominal pain Urinary tract infection Obstructive nephropathy Hyperparathyroidism due to renal insufficiency Vitamin deficiency Hypothyroidism 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 Paroxysmal atrial fibrillation Atherosclerosis of coronary artery of [place] heart without angina pectoris Essential (primary) hypertension Stenosis of left carotid artery HLD (hyperlipidemia) Arthritis Hydronephrosis due to obstruction of ureter Normochromic normocytic anemia Acute pyelonephritis Home Medications ?Medication ?Instructions ?Recorded ?Last Taken ?Type aspirin 81 mg chewable tablet 81 mg PO DAILY heart health 05/01/16 07/11/24 History ferrous sulfate 325 mg (65 mg 325 mg PO DAILY supplement 01/11/19 07/13/24 History iron) tablet acetaminophen 650 mg 1,300 mg PO BID pain 04/05/19 07/14/24 History tablet,extended release amiodarone 100 mg tablet 100 mg PO DAILY heart 07/06/20 07/14/24 History ascorbic acid (vitamin C) 500 mg 500 mg PO DAILY supplement 01/08/21 07/13/24 History tablet sucroferric oxyhydroxide 500 mg 500 mg PO BID PHOSPHORUS BINDER 04/29/23 07/13/24 History chewable tablet (Velphoro) metoprolol tartrate 25 mg tablet 25 mg PO BID for blood pressure 01/28/24 07/14/24 Rx #180 TABLETS levothyroxine 75 mcg tablet 75 mcg PO DAILY 11/17/24 Unknown History (Synthroid) Allergy/AdvReac Type Severity Reaction Status Date / Time cephalexin Allergy TONGUE Verified 11/17/24 11:18 SWELLING AND PEELING LIPS lisinopril Allergy Hives Verified 11/17/24 11:18 Sulfa (Sulfonamide Allergy Hives Verified 11/17/24 11:18 Antibiotics) nitrofurantoin AdvReac Nausea/Vom/ Verified 11/17/24 11:18 Diarrhea Family History Mother CVA (cerebral vascular accident) Hypertension Alcoholism Heart disease Father Heart disease Surgical History Hx of cystoscopy Hx of appendectomy Hx of bilateral cataract extraction Hx of cystoscopy Hx of hysterectomy (~2016) history Left brachial AV fistula creation (04/11/19) History of left-sided carotid endarterectomy History of coronary artery stent placement (10/09/08) Hx of cataract surgery History of total abdominal hysterectomy and bilateral salpingo-oophorectomy History of ureter stent Social History Smoking Status: Never smoker alcohol intake: never substance use type: does not use Audit: Pertinent Findings Pertinent Findings EKG Perinent findings: November 21, 2024. Sinus rhythm with first-degree AV block. Minimal voltage criteria for LVH. Consult pertinent findings: April 09, 2022. Dr. Cason. 1. Status post coronary artery stent placement?resolved-this was a BMS to the mid LAD in October 2008. 2. Paroxysmal atrial fibrillation?chronic-currently maintaining sinus rhythm. Continue amiodarone. 3. Hypertension?chronic?controlled Recommendation Anesthesia Recommendation Anesthesia recommendation: OPTIMIZED for anesthesia (Patient had the same procedure done in July 14, 2024. She is cleared for this procedure only. Last cardiology evaluation recommended stress test and echo. These do not seem to have been done.)
[2024-11-24] VITALS (8 sets, daily range): BP systolic 100–153; BP diastolic 47–68; PULSE 54–60; RESP 16–18; TEMP 36.2–36.6; O2SAT 93–99; BMI 20.2
--- OUTSIDE RECORDS SUMMARY | 2024-11-24 07:06 | XMS RPT_ITS | CCD ---
Author Organization [facility] Care Team Providers Care Land Use Planner Name Role Phone Dr. Brett Flores Primary Care Provider Dr. Torito Townsend Emergency Provider Dr. Brett Nunes Admit Provider Dr. Brett Nunes Attending Provider Dr. Brett Nunes Other Provider 1([facility])[phone] Melissa Rivas Other Provider 1([facility])[phone] Shan Cason Attending Provider 1([facility])[phone] Atilio Marks Referring Provider 1([facility])[phone] Antonio Miller Other Provider 1([facility])[phone] Dr. Jade Barrientos Attending Provider Dr. Jade Barrientos Other Provider Dr. Brett Flores Primary Care Provider 1([facility])[phone] Sunita Duvall Attending Provider Unavailable Dr. Brett Flores Referring Provider Dr. Shan Cason Attending Provider [phone] Brett Flores Primary Care Provider 1([facility])[phone] Sunita Duvall Attending Provider Unavailable Dr. Brett Flores Referring Provider Dr. Shan Cason Attending Provider [phone] Shan Cason Referring Provider [phone] Shan Cason Other Provider Dr. Carlos Patel Attending Provider 1([facility])[phone] Brett Flores Primary Care Provider [phone] Melissa Rivas Attending Unavailable Melissa Rivas Referring Unavailable Brett Flores Primary Care Unavailable Melissa Rivas Attending Unavailable Melissa Rivas Referring Unavailable Brett Flores Primary Care Unavailable Melissa Rivas Referring Unavailable Melissa Rivas Attending Unavailable Brett Flores Primary Care Unavailable Melissa Rivas Attending Unavailable Melissa Rivas Referring Unavailable Brett Flores Primary Care Unavailable Allergies Allergy Classification Reported Allergen(s) Allergy Type Date of Onset Reaction(s) Facility (13 sources) Lisinopril Drug Allergy 2 [facility] (14 sources) Sulfonamides (Antibiotic); Translations: [Sulfa (Sulfonamide Antibiotics)] Allergy to substance 2 [facility] (8 sources) Cephalexin Drug Allergy 2 TONGUE SWELLING AND PEELING LIPS [facility] (1 source) Cephalexin Drug Allergy 5 [facility] (1 source) Lisinopril Drug Allergy 5 [facility] (1 source) Nitrofurantoin Drug Allergy 5 [facility] Medications Current Medications Medication Drug Class(es) Dates Sig (Normalized) Sig (Original) 8 hr acetaminophen 650 mg extended release oral tablet (20 sources) Start: 04-05-2019 take 1300 mg by mouth twice daily Acetaminophen Active 1300 MG PO TWICE A DAY April 05, 2019 12:00am Start: 05-01-2016 End: 03-10-2019 take 1200 mg by mouth three times daily Acetaminophen Discontinued 1200 MG PO THREE TIMES A DAY May 01, 2016 1:00am March 10, 2019 8:25am acetaminophen 325 mg / oxyCODONE hydrochloride 5 mg oral tablet (10 sources) Opioid Agonist Start: 05-08-2023 take 1 tablet by mouth every eight hours Oxycodone-Acetaminophen (Percocet) 5-325 mg tablet Active 1 TABLET PO Q8H 3 May 08, 2023 Start: 02-13-2022 take 1 tablet by kianna th every eight hours Oxycodone-Acetaminophen (Percocet) 5-325 mg tablet Active 1 TABLET PO Q8H 3 February 13, 2022 amiodarone hydrochloride 100 mg oral tablet (20 sources) Antiarrhythmic Start: 07-06-2020 take 100 mg by mouth once daily Amiodarone Active 100 MG PO DAILY July 06, 2020 1:00am Start: 01-01-2018 End: 02-17-2020 take 100 mg by mouth once daily Amiodarone Discontinued 100 MG PO daily July 06, 2019 4:49pm February 17, 2020 1:28pm Start: 05-25-2017 End: 01-01-2018 take 200 mg by mouth once daily Amiodarone Discontinued 200 MG PO daily May 25, 2017 1:00am January 01, 2018 5:23pm Start: 01-27-2017 End: 05-21-2017 take 200 mg by mouth once daily Amiodarone Discontinued 200 MG PO DAILY January 27, 2017 12:00am May 21, 2017 4:27pm amLODIPine 2.5 mg oral tablet (19 sources) Dihydropyridine Calcium Channel Kian Start: 04-03-2022 take 2.5 mg by mouth once daily Amlodipine Active 2.5 MG PO DAILY April 02, 2022 11:00pm Start: 02-03-2019 End: 07-06-2019 take 1 tablet by mouth once daily Amlodipine (Norvasc) 10 mg tablet Discontinued 10 MG PO DAILY February 03, 2019 12:00am July 06, 2019 4:49pm ascorbic acid 500 mg oral tablet (13 sources) Vitamin C Start: 01-08-2021 take 500 mg by mouth once daily Ascorbic Acid (Vitamin C) Active 500 MG PO DAILY January 08, 2021 12:00am aspirin 81 mg chewable tablet (13 sources) Platelet Aggregation Inhibitor, Nonsteroidal Anti-inflammatory Drug Start: 05-01-2016 take 81 mg by mouth once daily Aspirin Active 81 MG PO DAILY May 01, 2016 1:00am cephalexin 250 mg oral capsule (4 sources) Cephalosporin Antibacterial Start: 11-14-2021 take 250 mg by mouth every eight hours Cephalexin Active 250 MG PO Q8H 15 November 14, 2021 1:54pm Start: 11-14-2021 take 500 mg by mouth every twelve hours Cephalexin Active 500 MG PO EVERY 12 HOURS 6 3 November 14, 2021 7:54am ferrous sulfate 325 mg oral tablet (13 sources) Start: 01-11-2019 take 325 mg by mouth once daily Ferrous Sulfate Active 325 MG PO DAILY January 11, 2019 12:00am Start: 01-11-2019 take 325 mg by mouth twice may ly Ferrous Sulfate Active 325 MG PO TWICE A DAY January 11, 2019 12:00am levothyroxine sodium 0.075 mg oral capsule (13 sources) l-Thyroxine Start: 10-09-2020 take 75 ug by mouth once daily Levothyroxine Active 75 MCG PO DAILY October 09, 2020 12:00am nitrofurantoin, macrocrystals 25 mg / nitrofurantoin, monohydrate 75 mg oral capsule (7 sources) Nitrofuran Antibacterial Start: 05-08-2023 take 1 capsule by mouth twice daily at mealtime Nitrofurantoin Monohyd/M-Cryst (Macrobid) 100 mg capsule Active 100 MG PO TWICE A DAY May 08, 2023 12:00am must administer with a meal/food Start: 01-30-2023 take 1 capsule by [facility] twice daily at mealtime Nitrofurantoin Monohyd/M-Cryst (Macrobid) 100 mg capsule Active 100 MG PO TWICE A DAY January 30, 2023 12:00am must administer with a meal/food Start: 09-26-2022 take 1 capsule by [facility] twice daily at mealtime Nitrofurantoin Monohyd/M-Cryst (Macrobid) 100 mg capsule Active 100 MG PO TWICE A DAY September 26, 2022 12:00am must administer with a meal/food Start: 05-08-2022 take 1 capsule by [facility] twice daily Nitrofurantoin Monohyd/M-Cryst Active 1 CAP PO TWICE A DAY May 08, 2022 12:00am ATB FOR [address] RIVAS STARTING 05/05/22 sevelamer carbonate 800 mg oral tablet (2 sources) Phosphate Binder Start: 01-23-2023 take 800 mg by mouth once daily Sevelamer Carbonate Active 800 MG PO DAILY January 22, 2023 11:00pm sodium bicarbonate 650 mg oral tablet (9 sources) Start: 12-15-2019 take 650 mg by mouth twice daily Sodium Bicarbonate Active 650 MG PO TWICE A DAY December 14, 2019 11:00pm sucroferric oxyhydroxide 500 mg chewable tablet (2 sources) Start: 04-29-2023 take 1 tablet by mouth twice daily Sucroferric Oxyhydroxide (Velphoro) 500 mg tablet,chewable Active 500 MG PO TWICE A DAY April 29, 2023 1:00am Completed/Discontinued Medications Medication Drug Class(es) Dates Sig (Normalized) Sig (Original) atenolol 50 mg oral tablet (13 sources) beta-Adrenergic Kian Start: 05-01-2016 End: 05-05-2016 take 50 mg by mouth once daily Atenolol Discontinued 50 MG PO DAILY May 01, 2016 1:00am May 05, 2016 1:38pm atorvastatin 10 mg oral tablet (20 sources) HMG-CoA Reductase Inhibitor Start: 05-01-2016 End: 03-09-2020 take 10 mg by mouth at bedtime Atorvastatin Discontinued 10 MG PO AT BEDTIME March 09, 2020 8:09am March 09, 2020 8:09am calcitriol 0.50864 mg oral capsule (20 sources) Vitamin D3 Analog Start: 10-28-2019 End: 04-03-2022 Calcitriol Discontinued 0.25 MCG PO MOTUWETHFR October 28, 2019 12:00am April 03, 2022 2:41pm ciprofloxacin 250 mg oral tablet (20 sources) Quinolone Antimicrobial Start: 08-27-2023 End: 08-27-2023 take 250 mg by mouth twice daily Ciprofloxacin Hcl Discontinued 250 MG PO TWICE A DAY August 27, 2023 12:00am August 27, 2023 9:11am Start: 07-04-2020 End: 07-11-2020 take 250 mg by mouth twice daily Ciprofloxacin Hcl Discontinued 250 MG PO TWICE A DAY July 04, 2020 1:00am July 11, 2020 11:28am Start: 12-23-2019 End: 02-17-2020 take 250 mg by mouth twice daily Ciprofloxacin Hcl Discontinued 250 MG PO TWICE A DAY December 23, 2019 12:00am February 17, 2020 1:29pm Start: 05-15-2017 End: 05-21-2017 take 500 mg by mouth twice daily Ciprofloxacin Hcl Discontinued 500 MG PO TWICE A DAY May 15, 2017 1:00am May 21, 2017 4:27pm clopidogrel 75 mg oral tablet (20 sources) [id number] Platelet Inhibitor Start: 07-06-2019 End: 03-20-2022 take 75 mg by mouth once daily Clopidogrel Discontinued 75 MG PO DAILY March 25, 2021 8:59am March 20, 2022 9:34am Start: 02-03-2019 End: 07-06-2019 take 75 mg by mouth three to four times daily Clopidogrel Discontinued 75 MG PO DAILY 90 February 03, 2019 3:53pm July 06, 2019 4:49pm will stop 3-4 days prior Start: 12-13-2018 End: 02-03-2019 take 75 mg by mouth once daily Clopidogrel Discontinue d 75 MG PO DAILY February 03, 2019 6:49am February 03, 2019 3:54pm Start: 12-21-2017 End: 12-13-2018 take 75 mg by mouth five times daily Clopidogrel Discontinued 75 MG PO DAILY December 21, 2017 9:50am December 13, 2018 11:35am WILL STOP 5 DAYS PRIOR Start: 05-01-2016 End: 12-21-2017 take 75 mg by mouth once daily Clopidogrel Discontinue d 75 MG PO DAILY May 01, 2016 1:00am December 21, 2017 9:51am hydroCHLOROthiazide 25 mg / losartan potassium 100 mg oral tablet (20 sources) Thiazide Diuretic, Angiotensin 2 Receptor Kian Start: 05-21-2017 End: 05-25-2017 take 1 tablet by mouth once daily Losartan-Hydrochlorothiazide Discontinued 1 TABLET PO daily May 21, 2017 1:00am May 25, 2017 1:53pm Start: 01-22-2017 End: 01-27-2017 Losartan-Hydrochlorothiazide Discontinued 1 EACH PO DAILY January 22, 2017 12:00am January 27, 2017 11:16am metoprolol tartrate 25 mg oral tablet (20 sources) beta-Adrenergic Kian Start: 05-25-2017 End: 02-02-2023 take 25 mg by mouth twice daily Metoprolol Tartrate Discontinued 25 MG PO TWICE A DAY 180 February 07, 2022 8:23am February 02, 2023 8:34am Start: 01-27-2017 End: 05-21-2017 take 25 mg by mouth twice daily Metoprolol Tartrate Discontinued 25 MG PO TWICE A DAY 60 January 27, 2017 12:00am May 21, 2017 4:27pm triamcinolone acetonide 32 mg injection (7 sources) Corticosteroid Start: 10-11-2020 End: 10-11-2020 Zilretta (triamcinolone acetonide) 32 mg intra-articular suspension,extended Discontinued 32 MG INTRAARTIC ONCE 1 October 11, 2020 1:53pm October 11, 2020 2:42pm Start: 02-17-2020 End: 02-17-2020 Kenalog (triamcinolone aceto nide) 40 mg/mL suspension for injection Discontinued 80 MG INTRAARTIC ONCE 2 February 17, 2020 1:20pm February 17, 2020 4:08pm Start: 01-20-2019 End: 01-20-2019 Kenalog (triamcinolone aceto nide) 40 mg/mL suspension for injection Discontinued 80 MG INTRAARTIC ONCE 2 January 20, 2019 10:24am January 20, 2019 10:46am Start: 07-15-2018 End: 07-15-2018 Kenalog (triamcinolone aceto nide) 40 mg/mL suspension for injection Discontinued 80 MG INTRAARTIC ONCE 2 July 15, 2018 2:32pm July 15, 2018 3:13pm Start: 04-12-2018 End: 04-12-2018 Kenalog (triamcinolone aceto nide) 40 mg/mL suspension for injection Discontinued 80 MG INTRAARTIC ONCE 2 April 12, 2018 11:24am April 12, 2018 12:07pm Start: 12-14-2017 End: 12-14-2017 Kenalog (triamcinolone aceto nide) 10 mg/mL suspension for injection Discontinued 2 MG INTRAARTIC ONCE 0.2 December 14, 2017 12:50pm December 14, 2017 1:09pm Start: 05-25-2017 End: 05-25-2017 Kenalog (triamcinolone aceto nide) 10 mg/mL suspension for injection Discontinued 2 MG INTRAARTIC ONCE 0.2 May 25, 2017 1:59pm May 25, 2017 2:03pm Problems Active Problems Problem Classification Problem Date Documented Da te Episodic/Chronic Abdominal pain (13 sources) Abdominal pain; Translations: [Unspecified abdominal pain] 02-10-2022 Episodic Bacterial infection; unspecified site (13 sources) Infection due to ESBL Klebsiella pneumoniae; Translations: [Other bacterial infections of unspecified site] 02-10-2022 Episodic Cardiac dysrhythmias (17 sources) Paroxysmal atrial fibrillation; Translations: [Paroxysmal atrial fibrillation] Chronic Cardiac dysrhythmias (13 sources) Bradycardia; Translations: [Bradycardia, unspecified] 02-03-2019 Episodic Chronic kidney disease (20 sources) Chronic kidney disease stage 5; Translations: [Chronic kidney disease, stage 5] Chronic Coronary atherosclerosis and other heart disease (13 sources) Coronary atherosclerosis; Translations: [Atherosclerotic heart disease of [place] coronary artery without angina pectoris] 02-03-2019 Chronic Deficiency and other anemia (13 sources) Iron-refractory iron deficiency anemia; Translations: [Other iron deficiency anemias] 12-23-2019 Episodic Deficiency and other anemia (13 sources) Iron deficiency anemia; Translations: [Iron deficiency anemia, unspecified] 12-23-2019 Episodic Diseases of white blood cells (14 sources) Leukocytosis; Translations: [Elevated white blood cell count, unspecified] Chronic Disorders of lipid metabolism (17 sources) Hyperlipidemia; Translations: [Hyperlipidemia, unspecified] Chronic Essential hypertension (17 sources) Essential hypertension; Translations: [Essential (primary) hypertension] Chronic Fluid and electrolyte disorders (20 sources) Dehydration; Translations: [Dehydration] 02-03-2019 Episodic Genitourinary symptoms and ill-defined conditions (13 sources) Blood in urine; Translations: [Hematuria, unspecified] 02-10-2022 Episodic Occlusion or stenosis of precerebral arteries (13 sources) Left carotid artery stenosis; Translations: [Occlusion and stenosis of left carotid artery] 04-08-2022 Chronic Other diseases of kidney and ureters (20 sources) Hydronephrosis; Translations: [Unspecified hydronephrosis] 08-22-2021 Episodic Other diseases of kidney and ureters (13 sources) Occlusion of ureter; Translations: [Crossing vessel and stricture of ureter without hydronephrosis] 04-08-2022 Episodic Other diseases of kidney and ureters (1 source) Unspecified hydronephrosis; Translations: [Hydronephrosis] Episodic Other diseases of kidney and ureters (3 sources) Crossing vessel and stricture of ureter without hydronephrosis; Translations: [Other ureteric obstruction] Episodic Other gastrointestinal disorders (10 sources) Ascites; Translations: [Other ascites] 04-08-2022 Episodic Past or Other Problems Problem Classification Problem Date Documented Da te Episodic/Chronic Coronary atherosclerosis and other heart disease (4 sources) Presence of coronary angioplasty implant and graft; Translations: [Percutaneous transluminal coronary angioplasty status] Onset: 10-09-2008 Episodic Other diseases of kidney and ureters (5 sources) Hydronephrosis with ureteral stricture, not elsewhere classified; Translations: [Hydronephrosis] Onset: 04-08-2024 Episodic Unclassified (12 sources) history Left brachial AV fistula creation Onset: 04-08-2019 04-08-2022 Urinary tract infections (20 sources) Urinary tract infectious disease; Translations: [Urinary tract infection, site not specified] Onset: 07-28-2024 Episodic Results Test Name Value Interpretation Reference Range Facil ity 12 Lead EKGon 11-21-2024 12 Lead EKG [facility] [address] [place] [address] 12 Lead EKG 11/21/24 1157 MR#: [id number] Acct: [id number] Name: ERNESTO KATZ Rep #: [id number] : 1940 84 From: Shan Cason MD Attending Dr: Dr. Melissa Rivas MD Status: PRE SDC Ordering Dr: Melissa Rivas MD Date: 11/21/24 Location: [facility] [place], [place] Sex: F C Admitted: Test Reason : PRE OP Blood Pressure : */* mmHG Vent. Rate : 61 BPM Atrial Rate : 61 BPM P-R Int : 234 ms QRS Dur : 90 ms QT Int : 480 ms P-R-T Axes : 89 86 71 degrees QTcB Int : 483 ms Sinus rhythm with 1st degree A-V block Minimal voltage criteria for LVH, may be normal variant Borderline ECG Confirmed by SHAN CASON MD ([id number]), research editor ABIMAEL OBRIEN ([id number]) on 11/22/2024 8:23:48 AM Referred By: Melissa Rivas Confirmed By: SHAN CASON MD 11/22/24 0823 Date Shan Cason MD CC: Dr. Melissa Rivas MD; Dr. Brett Flores DO Signed Normal [facility] Basic Metabolic Profile (BMP )on 11-21-2024 BUN/CRE 10.7 RATIO Normal 03-27 [facility] Comment on above: Performed By: #### L 500.2500, L100.0100 ####[facility] [address] [place], [address] Calcium [Mass/Vol] 9.4 mg/dL Normal 7.6-11.0 [facility] Comment on above: Performed By: #### L 500.2500, L100.0100 ####[facility] [address] [place], [address] Chloride [Moles/Vol] 97 mmol/L Low 98-108 [facility] Comment on above: Performed By: #### L 500.2500, L100.0100 ####[facility] [address] [place], [address] CO2 [Moles/Vol] 23.3 mmol/L Normal 21.0-32.0 [facility] Comment on above: Performed By: #### L 500.2500, L100.0100 ####[facility] [address] [place], [address] Creatinine [Mass/Vol] 4.99 mg/dL High 0.70-1.20 [facility] Comment on above: Performed By: #### L 500.2500, L100.0100 ####[facility] [address] [place], [address] GAP 16 High 5-15 [facility] Comment on above: Performed By: #### L 500.2500, L100.0100 ####[facility] [address] [place], [address] GFR/1.73 sq M.predicted among non-blacks MDRD (S/P/Bld) [Vol rate/Area] 8 mL/min/{1.73_m2} Low >60 [facility] Comment on above: Result Comment: mL/m in/1.73m2 CKD-EPI Creatinine Equation (2020) Performed By: #### L 500.2500, L100.0100 ####[facility] [address] [place], [address] Glucose [Mass/Vol] 89 mg/dL Normal 70-99 [facility] Comment on above: Performed By: #### L 500.2500, L100.0100 ####[facility] [address] [place], [address] Potassium [Moles/Vol] 4.6 mmol/L Normal 3.3-5.1 [facility] Comment on above: Performed By: #### L 500.2500, L100.0100 ####[facility] [address] [place], [address] Sodium [Moles/Vol] 136 mmol/L Normal 133-145 [facility] Comment on above: Performed By: #### L 500.2500, L100.0100 ####[facility] [address] [place], [address] Urea nitrogen [Mass/Vol] 53 mg/dL High 4-19 [facility] Comment on above: Performed By: #### L 500.2500, L100.0100 ####[facility] [address] [place], [address] CBC W/Diff, Automatedon 11-06 Anisocytosis Ql (Bld) 1+ Normal [facility] Comment on above: Performed By: #### L 500.2500, L100.0100 ####[facility] [address] [place], [address] SMEAR COMMENT SCANNED Normal [facility] Comment on above: Performed By: #### L 500.2500, L100.0100 ####[facility] [address] [place], [address] MR/PAT.ANEon 11-21-2024 MR/PAT.ANE [facility] Medical Records Department [address] [place] [address] PAT - Anesthesia 11/21/24 1342 MR#: [id number] Acct: [id number] Name: ERNESTO KATZ Rep #: [id number] : 1940 84 From: Lenyn Garcia MD PCP: Dr. 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 When Was Last Pacemaker Check QUESTION #4 FULL TEXT: You/Your Family Experience fever (hyperthermia) with Anesthesia Last Oral Intake Last Oral intake: Last Oral Intake NPO since Meds taken in AM with sips of water? Meds patient instructed to take am of surgery PONV PONV - compliance and control analyst: PONV - compliance and control analyst Female Yes 11/17/24 11:22 HX of Motion Sickness No 11/17/24 11:22 HX of N/V After Surgery No 11/17/24 11:22 Non-Smoker Yes 11/17/24 11:22 Duration of Surgery greater Yes 11/17/24 11:22 than 60 minutes Number of Risk Factors 3 11/17/24 11:22 PONV Score Moderate Risk 11/17/24 11:22 Height Weight Height Weight: Anesthesia: Height Weight Height 5 ft 3 in 07/14/24 06:41 Respiratory Assessment Respiratory Assessment - compliance and control analyst: Respiratory Tract Infection Hx - compliance and control analyst Hx Respiratory Tract Infection No 11/17/24 11:22 STOP Sleep Apnea STOP Sleep Apnea - compliance and control analyst: STOP Sleep Apnea - compliance and control analyst Hx Hypertension Yes: CONTROLLED WITH MEDS 11/17/24 11:22 Hx Sleep Apnea No 11/17/24 11:22 CPAP No 07/04/24 15:12 BIPAP No 07/04/24 15:12 Do you snore loudly (louder No 11/17/24 11:22 than talking or can be heard Do you often feel tired/ No 11/17/24 11:22 fatigued/ sleepy during daytime? Has anyone observed you stop No 11/17/24 11:22 breathing during sleep? STOP Results Negative 11/17/24 11:22 QUESTION #5 FULL TEXT : Do you snore loudly (louder than talking or can be heard through closed doors)? 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 Specify any problems Hx of Preganancy in last 3 No 11/17/24 11:22 Months Nurse Filling Out Transfusion [id number] 11/17/24 11:22 Questions: Date: 11/17/24 11/17/24 11:22 Time: 11:23 11/17/24 11:22 Patient unable to answer at this time (ie. confused, unrespo /Reproduct ion History /Reproduct lissett History - compliance and control analyst: /Reproduct lissett Hx- compliance and control analyst Hx Now No 11/17/24 11:22 Gestational Age (in weeks): EDC: Hx Hx Para Hx Section SAB No 11/17/24 11:22 [facility] Medical History (Updated 11/17/24 @ 11:27 by Maximo Leary) Heartburn Low iron Difficult intravenous access Cardiology follow-up encounter Bilateral ureteral obstruction Pyelonephritis Thyroid disease Ambulates with cane History of renal dialysis Easy bruising Wears glasses Anemia Post-menopausal Osteoarthritis Kidney disease Edema Chronic kidney disease Hematuria Abdominal pain Urinary tract infection Obstructive nephropathy Hyperparathyroidism due to renal insufficiency Vitamin deficiency Hypothyroidism 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 Paroxysmal atrial fibrillation Atherosclerosis of coronary artery of chicken [place] heart without angina pectoris Essential (primary) hypertension Stenosis of left carotid artery HLD (hyperlipidemia) Arthritis Hydronephrosis due to obstruction of ureter Normochromic normocytic anemia (more content not included)... Normal [facility] Basic Metabolic Profile (BMP )on 07-14-2024 BUN/CRE 8.8 RATIO Low 10-20 [facility] Comment on above: Performed By: #### L 100.0500, L500.2500 ####[facility] [address] [place], [address] CA,Total 7.6 mg/dL Low 8.5-10.1 [facility] Comment on above: Performed By: #### L 100.0500, L500.2500 ####[facility] [facility] [address] [place], [address] Chloride [Moles/Vol] 100 mmol/L Normal 98-107 [facility] Comment on above: Performed By: #### L 100.0500, L500.2500 ####[facility] [address] [place], [address] CO2 [Moles/Vol] 29.0 mmol/L Normal 21.0-32.0 [facility] Comment on above: Performed By: #### L 100.0500, L500.2500 ####[facility] [address] [place], [address] Creatinine [Mass/Vol] 5.35 mg/dL High 0.55-1.02 [facility] Comment on above: Result Comment: The validity of the calculated GFR GFRAA in patients over 70 years has not been determined. Clinical correlation is essential. Performed By: #### L 100.0500, L500.2500 ####[facility] [address] [place], [address] ECRCL 6.77 ml/min Normal [facility] Comment on above: Performed By: #### L 100.0500, L500.2500 ####[facility] [address] [place], [address] EST GFR - AA 10 mL/min Low >60 [facility] Comment on above: Result Comment: Afri can Comoran GFR Calc Performed By: #### L 100.0500, L500.2500 ####[facility] [address] [place], [address] GAP 10 Normal 5-15 [facility] Comment on above: Performed By: #### L 100.0500, L500.2500 ####[facility] [address] [place], [address] GFR/1.73 sq M.predicted among non-blacks MDRD (S/P/Bld) [Vol rate/Area] 8 mL/min/{1.73_m2} Low >60 [facility] Comment on above: Result Comment: Non- GFR Calc Performed By: #### L 100.0500, L500.2500 ####[facility] [address] [place], [address] Glucose [Mass/Vol] 88 mg/dL Normal 74-106 [facility] Comment on above: Performed By: #### L 100.0500, L500.2500 ####[facility] [address] [place], [address] Potassium [Moles/Vol] 4.0 mmol/L Normal 3.5-5.1 [facility] Comment on above: Performed By: #### L 100.0500, L500.2500 ####[facility] [address] [place], [address] Sodium [Moles/Vol] 139 mmol/L Normal 136-145 [facility] Comment on above: Performed By: #### L 100.0500, L500.2500 ####[facility] [address] [place], [address] Urea nitrogen [Mass/Vol] 47 mg/dL High 7-18 [facility] Comment on above: Performed By: #### L 100.0500, L500.2500 ####[facility] [address] [place], [address] CBC-Complete Blood Cnt No Di ffon 07-14-2024 Erythrocyte distribution width (RBC) [Ratio] 15.7 % High 11.6-14.6 [facility] Comment on above: Performed By: #### L 100.0500, L500.2500 ####[facility] [address] [place], [address] Hematocrit (Bld) [Volume fraction] 31.3 % Low 37-47 [facility] Comment on above: Performed By: #### L 100.0500, L500.2500 ####[facility] [address] [place], [address] Hemoglobin (Bld) [Mass/Vol] 10.1 g/dL Low 12.0-15.0 [facility] Comment on above: Performed By: #### L 100.0500, L500.2500 ####[facility] [address] [place], [address] MCH (RBC) [Entitic mass] 34.4 pg High 27.0-32.0 [facility] Comment on above: Performed By: #### L 100.0500, L500.2500 ####[facility] [address] [place], [address] MCHC (RBC) [Mass/Vol] 32.3 g/dL Normal 32-36 [facility] Comment on above: Performed By: #### L 100.0500, L500.2500 ####[facility] [address] [place], [address] MCV (RBC) [Entitic vol] 106.5 fL High 81-99 [facility] Comment on above: Performed By: #### L 100.0500, L500.2500 ####[facility] [address] [place], [address] Platelet mean volume (Bld) [Entitic vol] 8.9 fL Normal 6.2-12.0 [facility] Comment on above: Performed By: #### L 100.0500, L500.2500 ####[facility] [address] [place], [address] Platelets (Bld) [#/Vol] 281 10*3/uL Normal 150-450 [facility] Comment on above: Performed By: #### L 100.0500, L500.2500 ####[facility] [address] [place], [address] RBC (Bld) [#/Vol] 2.94 10*6/uL Low 4.2-5.4 [facility] Comment on above: Performed By: #### L 100.0500, L500.2500 ####[facility] [address] [place], [address] RDW SD 60.1 fl High 35.1-43.9 [facility] Comment on above: Performed By: #### L 100.0500, L500.2500 ####[facility] [address] [place], [address] WBC (Bld) [#/Vol] 13.4 10*3/uL High 4.4-11.0 [facility] Comment on above: Performed By: #### L 100.0500, L500.2500 ####[facility] [address] [place], [address] [address]charge Instruction[address] Discharge Instruction [facility] Medical Records Department [address] [place] [address] Instructions for Home/Discharge Instructions 07/14/24 0808 MR#: [id number] Acct: [id number] Name: GIANNAERNESTOSis FRY Rep #: [id number] : 1940 83 From: Melissa Rivas MD PCP: Dr. Brett Flores DO Status:REG SDC Discharge Instructions Diet Discharge Diet: No restrictions Activity Discharge Activity: Return to Normal Activity Dressing / Incision Call your doctor if you observe: Fever of 101 or Higher, Inability to urinate and Inability to have a bowel movement Follow Up Care Please Follow Up With: Melissa Rivas MD When: The office will call to schedule the next procedure in 3 months. Test Results: Test results from this visit will be discussed in further detail at your follow-up appointment, if applicable. Discharge Plan Admission Attending Provider: Melissa Rivas Primary Care Provider: Brett Flores Instructions Print Language: Croatian Discharge Orders/Prescription s Prescriptions: New ciprofloxacin HCl [Cipro] 250 mg tablet 250 mg PO BID Qty: 6 0RF Continued aspirin 81 MG tablet,chewable 81 mg PO DAILY Patient Comments: LAST DOSE 5 DAYS PRIOR, 02/09/22, for surgery on 02/13/22 ferrous sulfate 325 MG tablet 325 mg PO DAILY acetaminophen 650 MG tablet extended release 1,300 mg PO BID amiodarone 100 MG tablet 100 mg PO DAILY levothyroxine 75 mcg Capsule 75 mcg PO DAILY ascorbic acid (vitamin C) 500 mg Tablet 500 mg PO DAILY Velphoro 500 mg tablet,chewable 500 mg PO BID metoprolol tartrate 25 mg tablet 25 mg PO BID Qty: 180 3RF Referrals / Follow Up: Brett Flores DO [Primary Care Provider] - Disposition Disposition (needs filled in before D/C Order can be placed): Home, Self Care 07/14/24 0811 Melissa Rivas MD CC: Dr. Brett Flores DO Signed Normal [facility] MR/POSTOP.ANE 07-14-2024 MR/POSTOP.[facility] Medical Records Department [address] [place] [address] Anesthesia Postop Eval I 07/14/24 0805 MR#: [id number] Acct: [id number] Name: ERNESTO KATZ Rep #: [id number] : 1940 83 From: Amy Guillermo PCP: Dr. Brett Flores DO Status:REG SDC Y Race: C Location: [place] [address] Anesthesia: Postop Eval I Current Vital Signs Temperature: 98.1 F Pulse Rate: 59 Blood Pressure: 85/46 (SHORE WORKER to bolus 250ml of crystalloid) Respiratory Rate: 16 Pulse Ox: 95 Oxygen Delivery Method: Nasal Cannula Oxygen Flow Rate (L/min): 2 Assessment Airway patent: Yes Spontaneous unlabored respirations: Yes Mental status: Awake and Calm nausea: No Vomiting: No Anesthesia Complication: No Fluid Hydration Crystalloid volume administer (ml): 200 Total IV fluid infused: 200 Progress Note Anesthesia document: Postop Eval 1 completed: Yes 07/14/24 08 Date Amy Zohrehlarryana Cosigner Signature: Date CC: Signed Normal [facility] MR/[id number] 07-14-2024 [facility] Medical Records Department [address] [place] [address] Anesthesia Postop Eval II 07/14/24 1043 MR#: [id number] Acct: [id number] Name: ERNESTO KATZ Rep #: [id number] : 1940 83 From: Kami Vasquez PCP: Dr. Brett Flores, DO Status:[facility] Y Race: C Location: [facility] [place] [place] Anesthesia Postop Eval I Sum Postop Eval Completion status Anesthesia document: Postop Eval 1 completed: Yes Anesthesia Postop Eval I Summary Anesthesia Postop Eval I Summary: Anesthesia Postop Eval I: Assessment Summary Airway patent Yes 07/14/24 08:07 METALLOGRAPHIC TECHNICIAN.GDOTT Spontaneous unlabored Yes 07/14/24 08:07 METALLOGRAPHIC TECHNICIAN.GDOTT respirations Mental status Awake,Calm 07/14/24 08:07 METALLOGRAPHIC TECHNICIAN.GDOTT nausea No 07/14/24 08:07 METALLOGRAPHIC TECHNICIAN.GDOTT Vomiting No 07/14/24 08:07 METALLOGRAPHIC TECHNICIAN.GDOTT Anesthesia Postop Eval I: Fluid Summary Crystalloid volume administer 200 07/14/24 08:07 METALLOGRAPHIC TECHNICIAN.GDOTT (ml) Colloids volume administered ( ml) Blood Product volume administered (ml) Total IV fluid infused 200 07/14/24 08:07 METALLOGRAPHIC TECHNICIAN.GDOTT Anesthesia Postop Eval I: Summary Notes Anesthesia Complication No 07/14/24 08:07 METALLOGRAPHIC TECHNICIAN.GDOTT Anesthesia Complication Comment: Post-operative progress note Anesthesia: Postop Eval II Evaluation Mental status: Awake and Calm Pain Level: 0 nausea: No Vomiting: No 07/14/24 1043 Date Kami Luo Signature: Date CC: Signed Normal [facility] Operative Reporton Operative Report [facility] Medical Records Department [address] [place] [address] Operative Report 07/14/24 0811 MR#: [id number] Acct: [id number] Name: ERNESTO KATZ Rep #: [id number] : 1940 83 From: Melissa Rivas MD PCP: Dr. Brett Flores, DO Status:[facility] Location: [place] [address] Operative Report (Standard) Operative Information Date of Procedure: 07/14/24 Pre-Operative Diagnosis: Bilateral ureteral obstruction Post-Operative Diagnosis: Same Surgery/Procedure Performed: Cystoscopy with bilateral ureteral stent change senior procurement manager: Yes Weigh Machine Operator: Estephanie Ribera Tasks completed by classroom assistant: Other (Helping with stent insertion) Additional application assistant?: No Type of Anesthesia: MAC RN Documented Start/Stop Times: Operation Date: 07/14/24 07:30 Case Time Into Pre-Op 07/14/24 06:07 Out of Pre-Op 07/14/24 07:26 Anesthesia Start 07/14/24 07:30 Into Room 07/14/24 07:30 Procedure Start 07/14/24 07:44 Procedure End 07/14/24 07:54 Anesthesia End 07/14/24 08:01 Out of Room 07/14/24 08:01 Into Recovery 07/14/24 08:05 Procedure Start Time: 07:44 Procedure Stop Time: 07:54 Select all DRAINS/GRAFTS/IMPLA NTS that apply: Drains Drain details: 6 Citizen Of [place] x 24 centimeter JJ stent x 2 Estimated Blood Loss: <5cc Specimen collected: No Description of surgery: The patient is an 83-year-old female who presents for her routine every 3-month bilateral ureteral stent change and cystoscopy. Informed consent was obtained. She was taken to the operating room and placed in a supine position on the operating room table. Anesthesia monitored the head, neck, airway, IV access and vital signs throughout the case. Once anesthesia was appropriately administered, she was placed into dorsolithotomy position was prepped and draped in usual sterile fashion. The cystoscope was inserted through the urethra under direct visualization into the urinary bladder. There was mucus and debris within the urine and this was flushed out. The right ureteral stent was then grasped and brought to the urethral meatus where it was backloaded with a 0.035 Glidewire. The Glidewire advanced into the renal pelvis and the stent was removed. The wire was then backloaded into the cystoscope using the pusher. A new 6 Citizen [place] 24 cm JJ stent was placed over the Glidewire and advanced into the renal pelvis with good positioning there as well as the urinary bladder. The same exact process was repeated on the patient's left side without difficulty. Fluoroscopic visualization confirmed good positioning of bilateral stents. Her bladder was emptied and the cystoscope was removed. She was awakened and taken to the recovery room in good condition. Surgical Findings: 6 Citizen Of [place] x 24 cm JJ stent x 2 Complications Complications: No Admit VTE Documentation VTE Present on Admission: Yes VTE Mechan Device Prophylaxis: SCD's VTE Pharm Prophylaxis ordered?: No Reason prophylaxis not ordered: Treatment Not Indicated 07/14/24813 Cosigner Signature (if applicable): CC: Dr. Melissa Rivas MD; Dr. Brett Flores DO Signed Normal [facility] Discharge Instructionon 03-[address] [facility] Medical Records Department [address] [place] [address] Instructions for Home/Discharge Instructions 03/17/2438 MR#: [id number] Acct: [id number] Name: ERNESTO KATZ Rep #: [id number] : 1940 83 From: Melissa Rivas MD PCP: Dr. Brett Flores DO Status:REG [facility] [place] [place] Discharge Instructions Diet Discharge Diet: No restrictions Activity Discharge Activity: Return to Normal Activity Dressing / Incision Call your doctor if you observe: Fever of 101 or Higher, Inability to urinate and Inability to have a bowel movement Follow Up Care Please Follow Up With: Melissa Rivas MD Test Results: Test results from this visit will be discussed in further detail at your follow-up appointment, if applicable. Discharge Plan Admission Attending Provider: Melissa Rivas Primary Care Provider: Brett Flores Print Language: Croatian Discharge Orders/Prescription s Prescriptions: Continued aspirin 81 MG tablet,chewable 81 mg PO DAILY Patient Comments: LAST DOSE 5 DAYS PRIOR, 02/09/22, for surgery on 02/13/22 ferrous sulfate 325 MG tablet 325 mg PO DAILY acetaminophen 650 MG tablet extended release 1,300 mg PO BID amiodarone 100 MG tablet 100 mg PO DAILY levothyroxine 75 mcg Capsule 75 mcg PO DAILY ascorbic acid (vitamin C) 500 mg Tablet 500 mg PO DAILY Velphoro 500 mg tablet,chewable 500 mg PO BID metoprolol tartrate 25 mg tablet 25 mg PO BID Qty: 180 3RF Referrals / Follow Up: Brett Flores DO [Primary Care Provider] - Disposition Disposition (needs filled in before D/C Order can be placed): Home, Self Care 03/17/24838 Melissa Rivas MD CC: Dr. Brett Flores DO Signed Normal [facility] MR/POSTOP.[facility] 03-17-2024 MR/[facility]OP.[facility] Medical Records Department [address] [place] [address] Anesthesia Postop Eval I 03/17/24817 MR#: [id number] Acct: [id number] Name: ERNESTO KATZ Rep #: [id number] : 1940 83 From: Erum Akers CRNA PCP: Dr. Brett Flores DO Status:REG [facility] [place] [place] Y Race: C Location: [place] [address] Anesthesia: Postop Eval I Current Vital Signs Temperature: 97 F Pulse Rate: 54 Blood Pressure: 115/46 Respiratory Rate: 16 Pulse Ox: 97 Oxygen Delivery Method: Room Air Assessment Airway patent: Yes Spontaneous unlabored respirations: Yes Mental status: Awake and Calm nausea: No Vomiting: No Anesthesia Complication: No Fluid Hydration Crystalloid volume administer (ml): 100 Total IV fluid infused: 100 Progress Note Anesthesia document: Postop Eval 1 completed: Yes 03/17/24818 Erum Akers METALLOGRAPHIC TECHNICIAN Cosigner Signature: Date CC: Signed Normal [facility] MR/[id number] 03-17-2024 MR/POSTOPAN2 [facility] Medical Records Department [address] [place] [address] Anesthesia Postop Eval II 03/17/24 1027 MR#: [id number] Acct: [id number] Name: ERNESTO KATZ Rep #: [id number] : 1940 83 From: Torito Sue MD PCP: Dr. Brett Flores, DO Status:[facility] Y Race: C Location: [facility] [place] [place] Anesthesia Postop Eval I Sum Postop Eval Completion status Anesthesia document: Postop Eval 1 completed: Yes Anesthesia Postop Eval I Summary Anesthesia Postop Eval I Summary: Anesthesia Postop Eval I: Assessment Summary Airway patent Yes 03/17/24 08:19 METALLOGRAPHIC TECHNICIAN.RIAZOBNikolai Spontaneous unlabored Yes 03/17/24 08:19 METALLOGRAPHIC TECHNICIAN.RIAZOBNikolai respirations Mental status Awake,Calm 03/17/24 08:19 METALLOGRAPHIC TECHNICIAN.SKOBY nausea No 03/17/24 08:19 METALLOGRAPHIC TECHNICIAN.SKOBY Vomiting No 03/17/24 08:19 METALLOGRAPHIC TECHNICIAN.SKOBY Anesthesia Postop Eval I: Fluid Summary Crystalloid volume administer 100 03/17/24 08:19 CINDA (ml) Colloids volume administered ( ml) Blood Product volume administered (ml) Total IV fluid infused 100 03/17/24 08:19 METALLOGRAPHIC TECHNICIAN.ISSAC Anesthesia Postop Eval I: Summary Notes Anesthesia Complication No 03/17/24 08:19 METALLOGRAPHIC TECHNICIAN.RIAZOBNikolai Anesthesia Complication Comment: Post-operative progress note Anesthesia: Postop Eval II Evaluation Mental status: Awake Pain Level: 0 nausea: No Vomiting: No 03/17/24 1027 Date Torito Medinaignana Signature: Date CC: Signed Normal [facility] Operative Reporton [address] [facility] Medical Records Department [address] [place] [address] Operative Report 03/17/24 0839 MR#: [id number] Acct: [id number] Name: ERNESTO KATZ Rep #: [id number] : 1940 83 From: Melissa Rivas MD PCP: Dr. Brett Flores DO Status:[facility] Location: [facility] [place] [place] Report of Operation Date of Procedure: 03/17/24 Pre-Operative Diagnosis: Bilateral ureteral obstruction Post-Operative Diagnosis: Same Surgery/Procedure Performed:: Cystoscopy with bilateral ureteral stent change Surgeon: Melissa Rivas Description of Procedure: The patient is an 83-year-old female with bilateral ureteral obstruction and she presents for her routine every 3 month ureteral stent change under anesthesia. Informed consent was obtained. Her urine culture has been managed with antibiotics preoperatively. The patient was taken to the operating room and placed on the operating room table. Anesthesia monitored the head, neck, airway, IV access and vital signs throughout the case. Once anesthesia was appropriately administered, she was placed into dorsolithotomy position was prepped and draped in usual sterile fashion. The cystoscope was inserted through the urethra under direct visualization into the urinary bladder. The left ureteral orifice was identified and a 0.035 Glidewire was placed alongside of the left ureteral stent and advanced into the renal pelvis. The indwelling stent was then removed and the wire was utilized to place a new 6 Citizen Of [place] 24 cm JJ stent with good positioning in the renal pelvis as well as the urinary bladder. This process was then repeated on the patient's right side with no issues. The patient's bladder was then emptied and the cystoscope was removed. She was awakened and taken to the recovery room in good condition. There were no complications. Grafts/Implants Used: 6 x 24 JJ stent x 2 Complications None Admit VTE Documentation VTE Present on Admission: Yes VTE Mechan Device Prophylaxis: SCD's VTE Pharm Prophylaxis ordered?: No Reason prophylaxis not ordered:: Treatment Not Indicated 03/17/24 0950 Cosigner Signature (if applicable): CC: Dr. Melissa Rivas MD; Dr. Brett Flores DO Signed Normal [facility] MR/[id number] 12-18-2023 /POSTOPAN2 [facility] Medical Records Department [address] [place] [address] Anesthesia Postop Eval II 12/18/23 0734 MR#: [id number] Acct: [id number] Name: ERNESTO KATZ Rep #: [id number] : 1940 83 From: Torito Sue MD PCP: Dr. Brett Flores DO Status:[facility] Y Race: C Location: [facility] [place] [place] Anesthesia Postop Eval I Sum Postop Eval Completion status Anesthesia document: Postop Eval 1 completed: Yes Anesthesia Postop Eval I Summary Anesthesia Postop Eval I Summary: Anesthesia Postop Eval I: Assessment Summary Airway patent Yes 12/17/23 15:20 METALLOGRAPHIC TECHNICIAN.CSIR Spontaneous unlabored Yes 12/17/23 15:20 METALLOGRAPHIC TECHNICIAN.CSIR respirations Mental status nausea No 12/17/23 15:20 METALLOGRAPHIC TECHNICIAN.CSIR Vomiting No 12/17/23 15:20 METALLOGRAPHIC TECHNICIAN.CSIR Anesthesia Postop Eval I: Fluid Summary Crystalloid volume administer 100 12/17/23 15:20 METALLOGRAPHIC TECHNICIAN.CSIR (ml) Colloids volume administered ( ml) Blood Product volume administered (ml) Total IV fluid infused 100 12/17/23 15:20 METALLOGRAPHIC TECHNICIAN.CSIR Anesthesia Postop Eval I: Summary Notes Anesthesia Complication No 12/17/23 15:20 METALLOGRAPHIC TECHNICIAN.CSIR Anesthesia Complication Comment: Post-operative progress note Anesthesia: Postop Eval II Evaluation Mental status: Awake Pain Level: 0 nausea: No Vomiting: No 12/18/23 0734 Date Torito Sue MD Cosignana Signature: Date CC: Signed Normal [facility] Basic Metabolic Profile (BMP )on 12-17-2023 BUN/CRE 8.1 RATIO Low 10-20 [facility] Comment on above: Performed By: #### L 100.0500, L500.2500 ####[facility] [address] [place], [address] CA,Total 9.9 mg/dL Normal 8.5-10.1 [facility] Comment on above: Performed By: #### L 100.0500, L500.2500 ####[facility] [address] [place], [address] Chloride [Moles/Vol] 101 mmol/L Normal 98-107 [facility] Comment on above: Performed By: #### L 100.0500, L500.2500 ####[facility] [address] [place], [address] CO2 [Moles/Vol] 27.0 mmol/L Normal 21.0-32.0 [facility] Comment on above: Performed By: #### L 100.0500, L500.2500 ####[facility] [address] [place], [address] Creatinine [Mass/Vol] 4.69 mg/dL High 0.55-1.02 [facility] Comment on above: Result Comment: The validity of the calculated GFR GFRAA in patients over 70 years has not been determined. Clinical correlation is essential. Performed By: #### L 100.0500, L500.2500 ####[facility] [address] [place], [address] ECRCL 7.78 ml/min Normal [facility] Comment on above: Performed By: #### L 100.0500, L500.2500 ####[facility] [address] [place], [address] EST GFR - AA 12 mL/min Low >60 [facility] Comment on above: Result Comment: Afri can [place] GFR Calc Performed By: #### L 100.0500, L500.2500 ####[facility] [address] [place], [address] GAP 7 Normal 5-15 [facility] Comment on above: Performed By: #### L 100.0500, L500.2500 ####[facility] [address] [place], [address] GFR/1.73 sq M.predicted among non-blacks MDRD (S/P/Bld) [Vol rate/Area] 10 mL/min/{1.73_m2} Low >60 [facility] Comment on above: Result Comment: Non- GFR Calc Performed By: #### L 100.0500, L500.2500 ####[facility] [address] [place], [address] Glucose [Mass/Vol] 91 mg/dL Normal 74-106 [facility] Comment on above: Performed By: #### L 100.0500, L500.2500 ####[facility] [address] [place], [address] Potassium [Moles/Vol] 4.0 mmol/L Normal 3.5-5.1 [facility] Comment on above: Performed By: #### L 100.0500, L500.2500 ####[facility] [address] [place], [address] Sodium [Moles/Vol] 135 mmol/L Low 136-145 [facility] Comment on above: Performed By: #### L 100.0500, L500.2500 ####[facility] [address] [place], [address] Urea nitrogen [Mass/Vol] 38 mg/dL High 7-18 [facility] Comment on above: Performed By: #### L 100.0500, L500.2500 ####[facility] [address] [place], [address] CBC-Complete Blood Cnt No Di ffon 12-17-2023 Erythrocyte distribution width (RBC) [Ratio] 14.6 % Normal 11.6-14.6 [facility] Comment on above: Performed By: #### L 100.0500, L500.2500 ####[facility] [address] [place], [address] Hematocrit (Bld) [Volume fraction] 36.7 % Low 37-47 [facility] Comment on above: Performed By: #### L 100.0500, L500.2500 ####[facility] [address] [place], [place], [address] Hemoglobin (Bld) [Mass/Vol] 11.8 g/dL Low 12.0-15.0 [facility] Comment on above: Performed By: #### L 100.0500, L500.2500 ####[facility] [address] [place], [address] MCH (RBC) [Entitic mass] 34.4 pg High 27.0-32.0 [facility] Comment on above: Performed By: #### L 100.0500, L500.2500 ####[facility] [address] [place], [address] MCHC (RBC) [Mass/Vol] 32.2 g/dL Normal 32-36 [facility] Comment on above: Performed By: #### L 100.0500, L500.2500 ####[facility] [address] [place], [address] MCV (RBC) [Entitic vol] 107.0 fL High 81-99 [facility] Comment on above: Performed By: #### L 100.0500, L500.2500 ####[facility] [address] [place], [address] Platelet mean volume (Bld) [Entitic vol] 9.7 fL Normal 6.2-12.0 [facility] Comment on above: Performed By: #### L 100.0500, L500.2500 ####[facility] [address] [place], [address] Platelets (Bld) [#/Vol] 166 10*3/uL Normal 150-450 [facility] Comment on above: Performed By: #### L 100.0500, L500.2500 ####[facility] [address] [place], [address] RBC (Bld) [#/Vol] 3.43 10*6/uL Low 4.2-5.4 [facility] Comment on above: Performed By: #### L 100.0500, L500.2500 ####[facility] [address] [place], [address] RDW SD 58.6 fl High 35.1-43.9 [facility] Comment on above: Performed By: #### L 100.0500, L500.2500 ####[facility] [address] [place], [address] WBC (Bld) [#/Vol] 5.6 10*3/uL Normal 4.4-11.0 [facility] Comment on above: Performed By: #### L 100.0500, L500.2500 ####[facility] [address] [place], [address] Discharge Instructionon 12-06 Discharge Instruction [facility] Medical Records Department [address] [place] [address] Instructions for Home/Discharge Instructions 12/17/23 1437 MR#: [id number] Acct: [id number] Name: ERNESTO KATZ Rep #: [id number] : 1940 83 From: Melissa Rivas MD PCP: Dr. Brett Flores DO Status:[facility] [place] [place] Discharge Instructions Diet Discharge Diet: No restrictions Activity Discharge Activity: Return to Normal Activity Dressing / Incision Call your doctor if you observe: Fever of 101 or Higher, Inability to urinate and Inability to have a bowel movement Follow Up Care Please Follow Up With: Melissa Rivas MD When: As scheduled in the office. Test Results: Test results from this visit will be discussed in further detail at your follow-up appointment, if applicable. Discharge Plan Admission Attending Provider: Melissa Rivas Primary Care Provider: Brett Flores Instructions Print Language: Croatian Discharge Orders/Prescription s Prescriptions: Continued aspirin 81 MG tablet,chewable 81 mg PO DAILY Patient Comments: LAST DOSE 5 DAYS PRIOR, 02/09/22, for surgery on 02/13/22 ferrous sulfate 325 MG tablet 325 mg PO DAILY acetaminophen 650 MG tablet extended release 1,300 mg PO BID amiodarone 100 MG tablet 100 mg PO DAILY levothyroxine 75 mcg Capsule 75 mcg PO DAILY ascorbic acid (vitamin C) 500 mg Tablet 500 mg PO DAILY Velphoro 500 mg tablet,chewable 500 mg PO BID metoprolol tartrate 25 mg tablet 25 mg PO BID Qty: 180 3RF Referrals / Follow Up: Brett Flores DO [Primary Care Provider] - Disposition Disposition (needs filled in before D/C Order can be placed): Home, Self Care 12/17/23 1438 Melissa Rivas MD CC: Dr. Brett Flores DO Signed Normal [facility] MR/POSTOP.ANEon 12-17-2023 MR/POSTOP.[facility] Medical Records Department [address] [place] [address] Anesthesia Postop Eval I 12/17/23 1520 MR#: [id number] Acct: [id number] Name: ERNESTO KATZ Rep #: [id number] : 1940 83 From: Kami Vasquez PCP: Dr. Brett Flores, DO Status:[facility] [place] [place] Y Race: C Location: [place] [address] Anesthesia: Postop Eval I Current Vital Signs Temperature: 97.4 F Pulse Rate: 57 Blood Pressure: 99/42 Respiratory Rate: 20 Pulse Ox: 97 Assessment Airway patent: Yes Spontaneous unlabored respirations: Yes nausea: No Vomiting: No Anesthesia Complication: No Fluid Hydration Crystalloid volume administer (ml): 100 Total IV fluid infused: 100 Progress Note Anesthesia document: Postop Eval 1 completed: Yes 12/17/23 1521 Date Kami Luo Signature: Date CC: Signed Normal [facility] Operative Reporton Operative Report [facility] Medical Records Department [address] [place] [address] Operative Report 12/17/23 1438 MR#: [id number] Acct: [id number] Name: ERNESTO KATZ Rep #: [id number] : 1940 83 From: Melissa Rivas MD PCP: Dr. Brett Flores, DO Status:[facility] [place] [place] Location: [place] [address] Report of Operation Date of Procedure: 12/17/23 Pre-Operative Diagnosis: Bilateral ureteral obstruction Post-Operative Diagnosis: Same Surgery/Procedure Performed:: Cystoscopy with bilateral ureteral stent change Surgeon: Melissa Rivas Type of Anesthesia: MAC Description of Procedure: The patient was taken to the operating room and placed on the operating room table. Anesthesia monitored the head, neck, airway, IV access and vital signs throughout the case. Once anesthesia was appropriate ministered, the patient was placed into dorsal lithotomy position and was prepped and draped in usual sterile fashion. The cystoscope was inserted through the urethra under direct visualization into the urinary bladder. The bladder mucosa was visualized with no findings of mass or foreign body other than the stents. At this time the left ureteral stent was observed, and a 0.035 Glidewire was placed alongside the stent through the ureteral orifice into the renal pelvis as seen on fluoroscopy. The graspers were used to remove the indwelling ureteral stent while holding the wire in place. a new 6 Citizen [place] 24 cm JJ stent was inserted over the wire with good curling in the renal pelvis as well as the urinary bladder. This process was then repeated on the patient's right side. The patient's bladder was then emptied and the cystoscope was removed. The patient was awakened and taken to the recovery room in good condition. There were no complications during this procedure. Grafts/Implants Used: 6 Citizen [place] by 24 cm JJ stent x 2 Complications None Admit VTE Documentation VTE Present on Admission: Yes VTE Mechan Device Prophylaxis: SCD's VTE Pharm Prophylaxis ordered?: No Reason prophylaxis not ordered:: Treatment Not Indicated 12/17/23 9898 Cosigner Signature (if applicable): CC: Dr. Melissa Rivas MD; Dr. Brett Flores DO Signed Normal [facility] Absolute lymphocyte countOrd ered By: Melissa Rivas on 08-27-2023 Lymphocytes Auto (Unsp spec) [#/Vol] 1.24 10*3/uL 0.83-4.51 [facility] Automated lymphocyte count a s percentage of total leukocytesOrdered By: Melissa Rivas on 08-27-2023 Lymphocytes/100 WBC Auto (Unsp spec) 9.2 % 19-41 [facility] Basophil percentageOrdered B y: Melissa Rivas on 08-27-2023 Chloride [Moles/Vol] 99 mmol/L 98-107 [facility] Glucose [Mass/Vol] 149 mg/dL 74-106 [facility] Comment on above: Fasting Glucose resu lt greater than or equal to 126 mg/dL suggests DIABETES MELLITUS per A.D.A. criteria. Potassium [Moles/Vol] 3.8 mmol/L 3.5-5.1 [facility] Sodium [Moles/Vol] 133 mmol/L 136-145 [facility] Basophils/100 WBC (Bld) 0.4 % 0-1 [facility] Eosinophils/100 WBC (Bld) 0.7 % 0-5 [facility] Hemoglobin (Bld) [Mass/Vol] 10.4 g/dL 12.0-15.0 [facility] Monocytes/100 WBC (Bld) 4.6 % 0-10 [facility] Neutrophils (Bld) [#/Vol] 11.4 10*3/uL 2.0-7.7 [facility] Neutrophils/100 WBC (Bld) 84.6 % 47-70 [facility] WBC (Bld) [#/Vol] 13.5 10*3/uL 4.4-11.0 [facility] Determination of erythrocyte mean corpuscular volume (MCV)Ordered By: Melissa Rivas on 08-27-2023 MCV (RBC) [Entitic vol] 108.3 fL 81-99 [facility] Erythrocyte distribution wid th ratioOrdered By: Melissa Rivas on 08-27-2023 Erythrocyte distribution width (RBC) [Ratio] 15.1 % 11.6-14.6 [facility] Erythrocyte distribution wid th standard deviationOrdered By: Melissa Rivas on 08-27-2023 Erythrocyte distribution width (RBC) [Entitic vol] 59.7 fL 35.1-43.9 [facility] Hematocrit Auto (Bld) [Volum e fraction]Ordered By: Melissa Rivas on 08-27-2023 Hematocrit (Bld) [Volume fraction] 33.9 % 37-47 [facility] Immature granulocytes/100 WB C Auto (Bld)Ordered By: Melissa Rivas on 08-27-2023 Immature granulocytes/100 WBC (Bld) 0.500 % 0.0-0.9 [facility] Comment on above: IG% - Immature Granu locytes (promyelocytes, myelocytes and metamyelocytes) > 1% indicates that a LEFT SHIFT is Present. Laboratory - Chemistry and C hemistry - challengeOrdered By: Melissa Rivas on 08-27-2023 CO2 [Moles/Vol] 25.0 mmol/L 21.0-32.0 [facility] Urea nitrogen/Creatinine [Mass ratio] 10.2 mg/mg 10-20 [facility] Laboratory - Hematology and Cell countsOrdered By: Melissa Rivas on 08-27-2023 MCH (RBC) [Entitic mass] 33.2 pg 27.0-32.0 [facility] MCHC (RBC) [Mass/Vol] 30.7 g/dL 32-36 [facility] Nucleated RBC/100 WBC (Bld) [Ratio] 0 % 0-5 [facility] Platelet mean volume (Bld) [Entitic vol] 10.5 fL 6.2-12.0 [facility] Platelets (Bld) [#/Vol] 176 10*3/uL 150-450 [facility] No Panel InformationOrdered By: Melissa Rivas on 08-27-2023 Estimated Creatinine Clearance Calc 7.61 ml/min [facility] Estimated GFR (MDRD) Amer 11 mL/min >60 [facility] Comment on above: GFR Calc Estimated GFR (MDRD) Non-Af Amer 9 mL/min >60 [facility] Comment on above: Non- GFR Calc RBC Auto (Bld) [#/Vol]Ordere d By: Mleissa Rivas on 08-27-2023 RBC (Bld) [#/Vol] 3.13 10*6/uL 4.2-5.4 [facility] Serum or plasma calcium priti urement (mass/volume)Ordered By: Melissa Rivas on 08-27-2023 Calcium [Mass/Vol] 10.0 mg/dL 8.5-10.1 [facility] Serum or plasma creatinine m easurement (mass/volume)Ordered By: Melissa Rivas on 08-27-2023 Creatinine [Mass/Vol] 4.88 mg/dL 0.55-1.02 [facility] Comment on above: The validity of the calculated GFR & GFRAA in patients over 70 years has not been determined. Clinical correlation is essential. Serum or plasma urea nitroge n measurement (mass/volume)Ordered By: Melissa Rivas on 08-27-2023 Urea nitrogen [Mass/Vol] 50 mg/dL 7-18 [facility] Thin prep Papanicolaou smear with manual screeningOrdered By: Melissa Rivas on 08-27-2023 Thin prep Papanicolaou smear with manual screening 9 5-15 [facility] Laboratory - Hematology and Cell countsOrdered By: Ledy Barrientos on 07-28-2023 Platelets (Bld) [#/Vol] 347 10*3/uL 150-450 [facility] No Panel InformationOrdered By: Dr. Barrientos on 08-06-2022 Hepatitis B Surface Antigen Non-Reactive Nonreactive [facility] Basophil percentageOrdered B y: Dr. Barrientos on 07-31-2022 Basophil percentage 3.5 mg/dL 2.5-4.9 [facility] Chloride [Moles/Vol] 113 mmol/L 98-107 [facility] Glucose [Mass/Vol] 109 mg/dL 74-106 [facility] Comment on above: Fasting Glucose resu lt from 100 to 125 mg/dL suggests IMPAIRED HOMEOSTASIS per A.D.A. criteria. Potassium [Moles/Vol] 4.3 mmol/L 3.5-5.1 [facility] Sodium [Moles/Vol] 140 mmol/L 136-145 [facility] WBC (Bld) [#/Vol] 6.9 10*3/uL 4.4-11.0 [facility] Blood erythrocytes count (nu mber/volume)Ordered By: Dr. Barrientos on 07-31-2022 RBC (Bld) [#/Vol] 3.24 10*6/uL 4.2-5.4 [facility] Blood hemoglobin measurement (mass/volume)Ordered By: Dr. Barrientos on 07-31-2022 Hemoglobin (Bld) [Mass/Vol] 10.9 g/dL 12.0-15.0 [facility] Blood platelet mean volumeOr dered By: Dr. Barrientos on 07-31-2022 Platelet mean volume (Bld) [Entitic vol] 9.2 fL 6.2-12.0 [facility] Determination of erythrocyte mean corpuscular volume (MCV)Ordered By: Dr. Barrientos on 07-31-2022 MCV (RBC) [Entitic vol] 104.6 fL 81-99 [facility] Hematocrit Auto (Bld) [Volum e fraction]Ordered By: Dr. Barrientos on 07-31-2022 Hematocrit (Bld) [Volume fraction] 33.9 % 37-47 [facility] Iron measurement (mass/mass) Ordered By: Dr. Barrientos on 07-31-2022 Iron (Unsp spec) [Mass/Mass] 69 ug/dL 50-170 [facility] Laboratory - Chemistry and C hemistry - challengeOrdered By: Dr. Barrientos on 07-31-2022 CO2 [Moles/Vol] 21.0 mmol/L 21.0-32.0 [facility] Urea nitrogen/Creatinine [Mass ratio] 14.3 mg/mg 10-20 [facility] Laboratory - Hematology and Cell countsOrdered By: Dr. Barrientos on 07-31-2022 Erythrocyte distribution width (RBC) [Entitic vol] 52.5 fL 35.1-43.9 [facility] Erythrocyte distribution width (RBC) [Ratio] 13.8 % 11.6-14.6 [facility] MCH (RBC) [Entitic mass] 33.6 pg 27.0-32.0 [facility] MCHC Auto (RBC) [Mass/Vol]Or dered By: Dr. Barrientos on 07-31-2022 MCHC (RBC) [Mass/Vol] 32.2 g/dL 32-36 [facility] No Panel InformationOrdered By: Dr. Barrientos on 07-31-2022 Estimated GFR (MDRD) Amer 12 mL/min >60 [facility] Comment on above: GFR Calc Estimated GFR (MDRD) Non-Af Amer 10 mL/min >60 [facility] Comment on above: Non- GFR Calc Parathyroid Hormone (Intact) 174.2 pg/mL 18.4-80.1 [facility] Total Iron Binding Capacity 256 ug/dL 250-450 [facility] Platelets bldOrdered By: Dr. Barrientos on 07-31-2022 Platelets (Bld) [#/Vol] 211 10*3/uL 150-450 [facility] Serum or plasma albumin priti urement (mass/volume)Ordered By: Dr. Barrientos on 07-31-2022 Albumin [Mass/Vol] 3.7 g/dL 3.2-5.0 [facility] Serum or plasma calcium priti urement (mass/volume)Ordered By: Dr. Barrientos on 07-31-2022 Calcium [Mass/Vol] 10.6 mg/dL 8.5-10.1 [facility] Serum or plasma creatinine m easurement (mass/volume)Ordered By: Dr. Barrientos on 07-31-2022 Creatinine [Mass/Vol] 4.41 mg/dL 0.55-1.02 [facility] Comment on above: The validity of the calculated GFR & GFRAA in patients over 70 years has not been determined. Clinical correlation is essential. Serum or plasma ferritin lane surement (mass/volume)Ordered By: Dr. Barrientos on 07-31-2022 Ferritin [Mass/Vol] 523 ng/mL 8 [facility] Serum or plasma iron saturat ion measurement (mass fraction)Ordered By: Dr. Barrientos on 07-31-2022 Iron saturation [Mass fraction] 27.0 % 15.0-55.0 [facility] Serum or plasma urea nitroge n measurement (mass/volume)Ordered By: Dr. Barrientos on 07-31-2022 Urea nitrogen [Mass/Vol] 63 mg/dL 7-18 [facility] Basophil percentageOrdered B y: Dr. Barrientos on 05-15-2022 Basophil percentage 3.3 mg/dL 2.5-4.9 [facility] Chloride [Moles/Vol] 110 mmol/L 98-107 [facility] Glucose [Mass/Vol] 94 mg/dL 74-106 [facility] Potassium [Moles/Vol] 4.2 mmol/L 3.5-5.1 [facility] Sodium [Moles/Vol] 139 mmol/L 136-145 [facility] WBC (Bld) [#/Vol] 8.5 10*3/uL 4.4-11.0 [facility] Blood erythrocytes count (nu mber/volume)Ordered By: Dr. Barrientos on 05-15-2022 RBC (Bld) [#/Vol] 3.22 10*6/uL 4.2-5.4 [facility] Blood hemoglobin measurement (mass/volume)Ordered By: Dr. Barrientos on 05-15-2022 Hemoglobin (Bld) [Mass/Vol] 10.8 g/dL 12.0-15.0 [facility] Blood platelet mean volumeOr dered By: Dr. Barrientos on 05-15-2022 Platelet mean volume (Bld) [Entitic vol] 8.9 fL 6.2-12.0 [facility] Determination of erythrocyte mean corpuscular volume (MCV)Ordered By: Dr. Barrientos on 05-15-2022 MCV (RBC) [Entitic vol] 105.0 fL 81-99 [facility] Hematocrit Auto (Bld) [Volum e fraction]Ordered By: Dr. Barrientos on 05-15-2022 Hematocrit (Bld) [Volume fraction] 33.8 % 37-47 [facility] Iron measurement (mass/mass) Ordered By: Dr. Barrientos on 05-15-2022 Iron (Unsp spec) [Mass/Mass] 38 ug/dL 50-170 [facility] Laboratory - Chemistry and C hemistry - challengeOrdered By: Dr. Barrientos on 05-15-2022 CO2 [Moles/Vol] 21.0 mmol/L 21.0-32.0 [facility] Urea nitrogen/Creatinine [Mass ratio] 12.5 mg/mg 10-20 [facility] Laboratory - Hematology and Cell countsOrdered By: Dr. Barrientos on 05-15-2022 Erythrocyte distribution width (RBC) [Entitic vol] 52.2 fL 35.1-43.9 [facility] Erythrocyte distribution width (RBC) [Ratio] 13.8 % 11.6-14.6 [facility] MCH (RBC) [Entitic mass] 33.5 pg 27.0-32.0 [facility] MCHC Auto (RBC) [Mass/Vol]Or dered By: Dr. Barrientos on 05-15-2022 MCHC (RBC) [Mass/Vol] 32.0 g/dL 32-36 [facility] No Panel InformationOrdered By: Dr. Barrientos on 05-15-2022 Estimated GFR (MDRD) Amer 13 mL/min >60 [facility] Comment on above: GFR Calc Estimated GFR (MDRD) Non-Af Amer 11 mL/min >60 [facility] Comment on above: Non- GFR Calc Parathyroid Hormone (Intact) 173.8 pg/mL 18.4-80.1 [facility] Total Iron Binding Capacity 257 ug/dL 250-450 [facility] Platelets bldOrdered By: Dr. Barrientos on 05-15-2022 Platelets (Bld) [#/Vol] 260 10*3/uL 150-450 [facility] Serum or plasma albumin priti urement (mass/volume)Ordered By: Dr. Barrientos on 05-15-2022 Albumin [Mass/Vol] 3.4 g/dL 3.2-5.0 [facility] Serum or plasma calcium priti urement (mass/volume)Ordered By: Dr. Barrientos on 05-15-2022 Calcium [Mass/Vol] 10.2 mg/dL 8.5-10.1 [facility] Serum or plasma creatinine m easurement (mass/volume)Ordered By: Dr. Barrientos on 05-15-2022 Creatinine [Mass/Vol] 4.32 mg/dL 0.55-1.02 [facility] Comment on above: The validity of the calculated GFR & GFRAA in patients over 70 years has not been determined. Clinical correlation is essential. Serum or plasma ferritin lane surement (mass/volume)Ordered By: Dr. Barrientos on 05-15-2022 Ferritin [Mass/Vol] 590 ng/mL 8252 [facility] Serum or plasma urea nitroge n measurement (mass/volume)Ordered By: Dr. Barrientos on 05-15-2022 Urea nitrogen [Mass/Vol] 54 mg/dL 7-18 [facility] Basophil percentageon 2021 Basophil percentage 3.9 mg/dL 2.5-4.9 [facility] Work Phone: Chloride [Moles/Vol] 113 mmol/L 98-107 [facility] Work Phone: Glucose [Mass/Vol] 105 mg/dL 74-106 [facility] Work Phone: Comment on above: Fasting Glucose resu lt from 100 to 125 mg/dL suggests IMPAIRED HOMEOSTASIS per A.D.A. criteria. Potassium [Moles/Vol] 4.6 mmol/L 3.5-5.1 [facility] Work Phone: Sodium [Moles/Vol] 141 mmol/L 136-145 [facility] Work Phone: WBC (Bld) [#/Vol] 7.4 10*3/uL 4.4-11.0 [facility] Work Phone: Blood erythrocytes count (nu mber/volume)on 04-04-2022 RBC (Bld) [#/Vol] 2.86 10*6/uL 4.2-5.4 [facility] Work Phone: Blood hemoglobin measurement (mass/volume)on 04-04-2022 Hemoglobin (Bld) [Mass/Vol] 9.7 g/dL 12.0-15.0 [facility] Work Phone: Blood platelet mean volumeon 04-04-2022 Platelet mean volume (Bld) [Entitic vol] 9.0 fL 6.2-12.0 [facility] Work Phone: Determination of erythrocyte mean corpuscular volume (MCV)on 04-04-2022 MCV (RBC) [Entitic vol] 102.8 fL 81-99 [facility] Work Phone: Hematocrit Auto (Bld) [Volum e fraction]on 04-04-2022 Hematocrit (Bld) [Volume fraction] 29.4 % 37-47 [facility] Work Phone: Laboratory - Chemistry and C hemistry - challengeon 04-04-2022 CO2 [Moles/Vol] 20.0 mmol/L 21.0-32.0 [facility] Work Phone: Urea nitrogen/Creatinine [Mass ratio] 12.9 mg/mg 10-20 [facility] Work Phone: Laboratory - Hematology and Cell countson 04-04-2022 Erythrocyte distribution width (RBC) [Entitic vol] 54.9 fL 35.1-43.9 [facility] Work Phone: Erythrocyte distribution width (RBC) [Ratio] 14.5 % 11.6-14.6 [facility] Work Phone: MCH (RBC) [Entitic mass] 33.9 pg 27.0-32.0 [facility] Work Phone: MCHC Auto (RBC) [Mass/Vol]on 04-04-2022 MCHC (RBC) [Mass/Vol] 33.0 g/dL 32-36 [facility] Work Phone: No Panel Informationon 04-04 Estimated GFR (MDRD) Amer 12 mL/min >60 [facility] Work Phone: Comment on above: GFR Calc Estimated GFR (MDRD) Non-Af Amer 10 mL/min >60 [facility] Work Phone: Comment on above: Non- GFR Calc Parathyroid Hormone (Intact) 229.4 pg/mL 18.4-80.1 [facility] Work Phone: Platelets bldon 04-04-2022 Platelets (Bld) [#/Vol] 187 10*3/uL 150-450 [facility] Work Phone: Serum or plasma albumin priti urement (mass/volume)on 04-04-2022 Albumin [Mass/Vol] 3.4 g/dL 3.2-5.0 [facility] Work Phone: Serum or plasma calcium priti urement (mass/volume)on 04-04-2022 Calcium [Mass/Vol] 10.1 mg/dL 8.5-10.1 [facility] Work Phone: Serum or plasma creatinine m easurement (mass/volume)on 04-04-2022 Creatinine [Mass/Vol] 4.43 mg/dL 0.55-1.02 [facility] Work Phone: Comment on above: The validity of the calculated GFR & GFRAA in patients over 70 years has not been determined. Clinical correlation is essential. Serum or plasma urea nitroge n measurement (mass/volume)on 04-04-2022 Urea nitrogen [Mass/Vol] 57 mg/dL 7-18 [facility] Work Phone: Basophil percentageon 2021 Basophil percentage 4.1 mg/dL 2.5-4.9 [facility] Work Phone: Chloride [Moles/Vol] 109 mmol/L 98-107 [facility] Work Phone: Glucose [Mass/Vol] 87 mg/dL 74-106 [facility] Work Phone: Potassium [Moles/Vol] 4.6 mmol/L 3.5-5.1 [facility] Work Phone: Sodium [Moles/Vol] 139 mmol/L 136-145 [facility] Work Phone: WBC (Bld) [#/Vol] 7.0 10*3/uL 4.4-11.0 [facility] Work Phone: Blood erythrocytes count (nu mber/volume)on 01-31-2022 RBC (Bld) [#/Vol] 3.18 10*6/uL 4.2-5.4 [facility] Work Phone: Blood hemoglobin measurement (mass/volume)on 01-31-2022 Hemoglobin (Bld) [Mass/Vol] 10.4 g/dL 12.0-15.0 [facility] Work Phone: Blood platelet mean volumeon 01-31-2022 Platelet mean volume (Bld) [Entitic vol] 9.1 fL 6.2-12.0 [facility] Work Phone: Determination of erythrocyte mean corpuscular volume (MCV)on 01-31-2022 MCV (RBC) [Entitic vol] 102.8 fL 81-99 [facility] Work Phone: Hematocrit Auto (Bld) [Volum e fraction]on 01-31-2022 Hematocrit (Bld) [Volume fraction] 32.7 % 37-47 [facility] Work Phone: Iron measurement (mass/mass) on 01-31-2022 Iron (Unsp spec) [Mass/Mass] 51 ug/dL 50-170 [facility] Work Phone: Laboratory - Chemistry and C hemistry - challengeon 01-31-2022 CO2 [Moles/Vol] 23.0 mmol/L 21.0-32.0 [facility] Work Phone: Urea nitrogen/Creatinine [Mass ratio] 12.0 mg/mg 10-20 [facility] Work Phone: Laboratory - Hematology and Cell countson 01-31-2022 Erythrocyte distribution width (RBC) [Entitic vol] 54.7 fL 35.1-43.9 [facility] Work Phone: Erythrocyte distribution width (RBC) [Ratio] 14.5 % 11.6-14.6 [facility] Work Phone: MCH (RBC) [Entitic mass] 32.7 pg 27.0-32.0 [facility] Work Phone: MCHC Auto (RBC) [Mass/Vol]on 01-31-2022 MCHC (RBC) [Mass/Vol] 31.8 g/dL 32-36 [facility] Work Phone: No Panel Informationon 01-31 Estimated GFR (MDRD) Amer 13 mL/min >60 [facility] Work Phone: Comment on above: GFR Calc Estimated GFR (MDRD) Non-Af Amer 11 mL/min >60 [facility] Work Phone: Comment on above: Non- GFR Calc Parathyroid Hormone (Intact) 212.5 pg/mL 18.4-80.1 [facility] Work Phone: Total Iron Binding Capacity 245 ug/dL 250-450 [facility] Work Phone: Platelets bldon 01-31-2022 Platelets (Bld) [#/Vol] 252 10*3/uL 150-450 [facility] Work Phone: Serum or plasma albumin priti urement (mass/volume)on 01-31-2022 Albumin [Mass/Vol] 3.5 g/dL 3.2-5.0 [facility] Work Phone: Serum or plasma calcium priti urement (mass/volume)on 01-31-2022 Calcium [Mass/Vol] 10.0 mg/dL 8.5-10.1 [facility] Work Phone: Serum or plasma creatinine m easurement (mass/volume)on 01-31-2022 Creatinine [Mass/Vol] 4.25 mg/dL 0.55-1.02 [facility] Work Phone: Comment on above: The validity of the calculated GFR & GFRAA in patients over 70 years has not been determined. Clinical correlation is essential. Serum or plasma ferritin lane surement (mass/volume)on 01-31-2022 Ferritin [Mass/Vol] 617 ng/mL 8- [facility] Work Phone: Serum or plasma iron saturat ion measurement (mass fraction)on 01-31-2022 Iron saturation [Mass fraction] 20.8 % 15.0-55.0 [facility] Work Phone: Serum or plasma urea nitroge n measurement (mass/volume)on 01-31-2022 Urea nitrogen [Mass/Vol] 51 mg/dL 7-18 [facility] Work Phone: Basophil percentageon 2021 Basophil percentage 4.4 mg/dL 2.5-4.9 [facility]: Chloride [Moles/Vol] 110 mmol/L 98-107 [facility]: Glucose [Mass/Vol] 91 mg/dL 74-106 [facility] Work Phone: Potassium [Moles/Vol] 4.3 mmol/L 3.5-5.1 [facility] Work Phone: Sodium [Moles/Vol] 138 mmol/L 136-145 [facility] Work Phone: WBC (Bld) [#/Vol] 10.0 10*3/uL 4.4-11.0 [facility] Work Phone: Blood erythrocytes count (nu mber/volume)on 12-12-2021 RBC (Bld) [#/Vol] 2.99 10*6/uL 4.2-5.4 [facility] Work [facility]: Blood hemoglobin measurement (mass/volume)on 12-12-2021 Hemoglobin (Bld) [Mass/Vol] 9.7 g/dL 12.0-15.0 [facility] Work Phone: Blood platelet mean volumeon 12-12-2021 Platelet mean volume (Bld) [Entitic vol] 8.9 fL 6.2-12.0 [facility] Work Phone: Determination of erythrocyte mean corpuscular volume (MCV)on 12-12-2021 MCV (RBC) [Entitic vol] 102.3 fL 81-99 [facility] Work Phone: Hematocrit Auto (Bld) [Volum e fraction]on 12-12-2021 Hematocrit (Bld) [Volume fraction] 30.6 % 37-47 [facility] Work Phone: Laboratory - Chemistry and C hemistry - challengeon 12-12-2021 CO2 [Moles/Vol] 21.0 mmol/L 21.0-32.0 [facility] Work Phone: Urea nitrogen/Creatinine [Mass ratio] 12.2 mg/mg 10-20 [facility] Work Phone: Laboratory - Hematology and Cell countson 12-12-2021 Erythrocyte distribution width (RBC) [Entitic vol] 53.1 fL 35.1-43.9 [facility] Work Phone: Erythrocyte distribution width (RBC) [Ratio] 14.1 % 11.6-14.6 [facility] Work Phone: MCH (RBC) [Entitic mass] 32.4 pg 27.0-32.0 [facility] Work Phone: MCHC Auto (RBC) [Mass/Vol]on 12-12-2021 MCHC (RBC) [Mass/Vol] 31.7 g/dL 32-36 [facility] Work Phone: No Panel Informationon 12-12 Estimated GFR (MDRD) Amer 13 mL/min >60 [facility] Work Phone: Comment on above: GFR Calc Estimated GFR (MDRD) Non-Af Amer 10 mL/min >60 [facility] Work Phone: Comment on above: Non- GFR Calc Parathyroid Hormone (Intact) 256.5 pg/mL 18.4-80.1 [facility] Work Phone: Platelets bldon 12-12-2021 Platelets (Bld) [#/Vol] 253 10*3/uL 150-450 [facility] Work Phone: Serum or plasma albumin priti urement (mass/volume)on 12-12-2021 Albumin [Mass/Vol] 3.3 g/dL 3.2-5.0 [facility] Work Phone: Serum or plasma calcium priti urement (mass/volume)on 12-12-2021 Calcium [Mass/Vol] 9.9 mg/dL 8.5-10.1 [facility] Work Phone: Serum or plasma creatinine m easurement (mass/volume)on 12-12-2021 Creatinine [Mass/Vol] 4.34 mg/dL 0.55-1.02 [facility] Work Phone: Comment on above: The validity of the calculated GFR & GFRAA in patients over 70 years has not been determined. Clinical correlation is essential. Serum or plasma urea nitroge n measurement (mass/volume)on 12-12-2021 Urea nitrogen [Mass/Vol] 53 mg/dL 7-18 [facility] Work Phone: Absolute lymphocyte counton 08-14-2021 Lymphocytes Auto (Unsp spec) [#/Vol] 1.45 10*3/uL 0.83-4.51 [facility] Work Phone: Basophil percentageon 2021 Basophils/100 WBC (Bld) 0.6 % 0-1 [facility] Work Phone: Chloride [Moles/Vol] 115 mmol/L 98-107 [facility] Work [facility]: Eosinophils/100 WBC (Bld) 1.1 % 0-5 [facility] Work Phone: Glucose [Mass/Vol] 85 mg/dL 74-106 [facility] Work Phone: Neutrophils (Bld) [#/Vol] 8.9 10*3/uL 2.0-7.7 [facility] Work Phone: Neutrophils/100 WBC (Bld) 78.8 % 47-70 [facility] Work Phone: Potassium [Moles/Vol] 4.1 mmol/L 3.5-5.1 [facility] Work Phone: Sodium [Moles/Vol] 140 mmol/L 136-145 [facility] Work Phone: WBC (Bld) [#/Vol] 11.4 10*3/uL 4.4-11.0 [facility] Work Phone: [phone] Blood erythrocytes count (nu mber/volume)on 08-14-2021 RBC (Bld) [#/Vol] 2.62 10*6/uL 4.2-5.4 [facility] Work Phone: Blood hemoglobin measurement (mass/volume)on 08-14-2021 Hemoglobin (Bld) [Mass/Vol] 8.2 g/dL 12.0-15.0 [facility] Work Phone: [phone] Blood lymphocytes/100 leukoc yteson 08-14-2021 Lymphocytes/100 WBC (Bld) 12.8 % 19-41 [facility] Work Phone: Blood monocytes/100 leukocyt eson 08-14-2021 Monocytes/100 WBC (Bld) 5.6 % 0-10 [facility] Work Phone: Blood platelet mean volumeon 08-14-2021 Platelet mean volume (Bld) [Entitic vol] 9.0 fL 6.2-12.0 [facility] Work Phone: Determination of erythrocyte mean corpuscular volume (MCV)on 08-14-2021 MCV (RBC) [Entitic vol] 99.6 fL 81-99 [facility] Work Phone: Hematocrit Auto (Bld) [Volum e fraction]on 08-14-2021 Hematocrit (Bld) [Volume fraction] 26.1 % 37-47 [facility] Work Phone: Laboratory - Chemistry and C hemistry - challengeon 08-14-2021 CO2 [Moles/Vol] 17.0 mmol/L 21.0-32.0 [facility] Work Phone: Urea nitrogen/Creatinine [Mass ratio] 13.3 mg/mg 10-20 [facility] Work Phone: Laboratory - Hematology and Cell countson 08-14-2021 Erythrocyte distribution width (RBC) [Entitic vol] 53.1 fL 35.1-43.9 [facility] Work Phone: Erythrocyte distribution width (RBC) [Ratio] 14.7 % 11.6-14.6 [facility] Work Phone: Immature granulocytes/100 WBC (Bld) 1.100 % 0.0-0.9 [facility] Work Phone: Comment on above: IG% - Immature Granu locytes (promyelocytes, myelocytes and metamyelocytes) > 1% indicates that a LEFT SHIFT is Present. MCH (RBC) [Entitic mass] 31.3 pg 27.0-32.0 [facility] Work Phone: Nucleated RBC/100 WBC (Bld) [Ratio] 0 % 0-5 [facility] Work Phone: MCHC Auto (RBC) [Mass/Vol]on 08-14-2021 MCHC (RBC) [Mass/Vol] 31.4 g/dL 32-36 [facility] Work Phone: No Panel Informationon 08-14 Estimated Creatinine Clearance Calc 11.05 ml/min [facility] Work Phone: Estimated GFR (MDRD) Amer 16 mL/min >60 [facility] Work Phone: Comment on above: GFR Calc Estimated GFR (MDRD) Non-Af Amer 14 mL/min >60 [facility] Work Phone: Comment on above: Non- GFR Calc Platelets bldon 08-14-2021 Platelets (Bld) [#/Vol] 212 10*3/uL 150-450 [facility] Work Phone: Serum or plasma calcium priti urement (mass/volume)on 08-14-2021 Calcium [Mass/Vol] 9.3 mg/dL 8.5-10.1 [facility] Work Phone: Serum or plasma creatinine m easurement (mass/volume)on 08-14-2021 Creatinine [Mass/Vol] 3.47 mg/dL 0.55-1.02 [facility] Work Phone: Comment on above: The validity of the calculated GFR & GFRAA in patients over 70 years has not been determined. Clinical correlation is essential. Serum or plasma urea nitroge n measurement (mass/volume)on 08-14-2021 Urea nitrogen [Mass/Vol] 46 mg/dL 7-18 [facility] Work Phone: Thin prep Papanicolaou smear with manual screeningon 08-14-2021 Thin prep Papanicolaou smear with manual screening 8 5-15 [facility] Work Phone: Laboratory - Microbiology an d Antimicrobial susceptibilityon 08-13-2021 Bacteria identified Cx Nom (Bld) No growth in 5 days. [facility] Work Phone: Basophil percentageon 2021 Bilirubin [Mass/Vol] 0.50 mg/dL 0.20-1.00 [facility] Work Phone: Comment on above: For patients on eltr ombopag therapy, use of Dimension [place] TBIL is not recommended. Protein [Mass/Vol] 5.3 g/dL 6.4-8.2 [facility] Work Phone: Direct bilirubinon 2 Bilirubin.direct [Mass/Vol] 0.22 mg/dL 0.00-0.30 [facility] Work Phone: INR in Blood by Coagulation assayon 08-12-2021 INR Coag (Bld) [Relative time] 1.3 {INR} [facility] Work Phone: Laboratory - Chemistry and C hemistry - challengeon 08-12-2021 ALP [Catalytic activity/Vol] 113 U/L 45-117 [facility] Work Phone: ALT [Catalytic activity/Vol] 25 U/L 13-56 [facility] Work Phone: Globulin (S) [Mass/Vol] 3.1 g/dL 2.2-4.2 [facility] Work Phone: Laboratory - Coagulationon 0 08-12-2021 aPTT Coag (Bld) [Time] 42.9 s 24.1-36.[address] [facility] Work Phone: PT Coag (PPP) [Time] 15.7 s 11.7-14.9 [facility] Work Phone: No Panel Informationon 08-12 Thyroid Stimulating Hormone (TSH) 1.74 uIU/mL 0.358-3.74 [facility] Work Phone: Serum or plasma albumin priti urement (mass/volume)on 08-12-2021 Albumin [Mass/Vol] 2.2 g/dL 3.2-5.0 [facility] Work Phone: Thin prep Papanicolaou smear with manual screeningon 08-12-2021 Thin prep Papanicolaou smear with manual screening 18 U/L 15-37 [facility] Work Phone: Basophil percentageon 2021 Basophil percentage >100 SEEN /hpf [facility] Work Phone: Bilirubin Test strip Ql (U)o n 08-11-2021 Bilirubin Ql (U) Negative Negative [facility] Work Phone: Culture, urineon 08-11-2021 Bacteria identified Cx Nom (U) Pseudomonas aeroginosa [facility] Work Phone: Ketones Test strip Ql (U)on 08-11-2021 Ketones Ql (U) Negative Negative [facility] Work Phone: Laboratory - Chemistry and C hemistry - challengeon 08-11-2021 Lipase [Catalytic activity/Vol] 74 U/L 73-393 [facility] Work Phone: Mucus LM Ql (Urine sed)on Mucus Ql (Urine sed) 0 SEEN /hpf [facility] Work Phone: Nitrite Test strip Ql (U)on 08-11-2021 Nitrite Ql (U) Positive Negative [facility] Work Phone: Protein Test strip Ql (U)on 08-11-2021 Protein Ql (U) 100 mg/dl Negative [facility] Work Phone: Serum or plasma albumin/glob ulin mass ratioon 08-11-2021 Albumin/Globulin [Mass ratio] 0.8 {ratio} 0.9-2.4 [facility] Work Phone: Squamous epithelial cells de tection in urine sediment by light microscopyon 08-11-2021 Epithelial cells.squamous LM Ql (Urine sed) 0-5 SEEN /hpf [facility] Work Phone: Urine blood detectionon RBC Ql (U) 250 /ul Negative [facility] Work Phone: RBC Ql (U) 10-25 SEEN /hpf [facility] Work Phone: Urine clarityon 08-11-2021 Clarity (U) Cloudy Clear [facility] Work Phone: Urine color determinationon 08-11-2021 Color (U) Yellow Yellow [facility] Work Phone: Urine glucose detectionon Glucose Ql (U) Normal mg/dl Normal [facility] Work Phone: Urine leukocyte esterase det ection by dipstickon 08-11-2021 Leukocyte esterase Test strip Ql (U) 500 /ul Negative [facility] Work Phone: Urine pHon 08-11-2021 pH (U) 7.0 [pH] [facility] Work Phone: Urine sediment bacteria coun t by microscopy (number/high power field)on 08-11-2021 Bacteria LM.HPF (Urine sed) [#/Area] 3 /[HPF] None Seen [facility] Work Phone: Urine specific gravity measu rementon 08-11-2021 Specific gravity (U) [Rel density] 1.010 [facility] Work Phone: Urobilinogen Auto test strip Ql (U)on 08-11-2021 Urobilinogen Ql (U) Normal mg/dl Normal [facility] Work Phone: Vital Signs Date Time Vital Sign Value Performing Clinician Faci lity 08-27-2023 09:02-0400 Body temperature 97.8 [degF] [facility] 08-27-2023 09:02-0400 Diastolic blood pressure 50 mm[Hg] [facility] 08-27-2023 09:02-0400 Heart rate 65 /min [facility] 08-27-2023 09:02-0400 Respiratory rate 16 /min [facility] 08-27-2023 09:02-0400 SaO2% (BldA) [Mass fraction] 94 % [facility] 08-27-2023 09:02-0400 Systolic blood pressure 113 mm[Hg] [facility] 08-27-2023 07:21-0400 Body height 160.02 cm [facility] 08-27-2023 07:21-0400 Body mass index (BMI) [Ratio] 22.6 kg/m2 [facility] 08-27-2023 07:21-0400 Body weight 58 kg [facility] 05-08-2023 12:53-0500 Body temperature 97.2 [degF] [facility] 05-08-2023 12:53-0500 Diastolic blood pressure 56 mm[Hg] [facility] 05-08-2023 12:53-0500 Heart rate 63 /min [facility] 05-08-2023 12:53-0500 Respiratory rate 16 /min [facility] 05-08-2023 12:53-0500 SaO2% (BldA) [Mass fraction] 96 % [facility] 05-08-2023 12:53-0500 Systolic blood pressure 123 mm[Hg] [facility] 05-08-2023 09:36-0500 Body height 160.02 cm [facility] 05-08-2023 09:36-0500 Body mass index (BMI) [Ratio] 23.4 kg/m2 [facility] 05-08-2023 09:36-0500 Body weight 60 kg [facility] 01-30-2023 12:20-0400 Body temperature 98.3 [degF] [facility] 01-30-2023 12:20-0400 Diastolic blood pressure 49 mm[Hg] [facility] 01-30-2023 12:20-0400 Heart rate 67 /min [facility] 01-30-2023 12:20-0400 Respiratory rate 16 /min [facility] 01-30-2023 12:20-0400 SaO2% (BldA) [Mass fraction] 97 % [facility] 01-30-2023 12:20-0400 Systolic blood pressure 135 mm[Hg] [facility] 01-30-2023 09:32-0400 Body height 160.02 cm [facility] 01-30-2023 09:32-0400 Body mass index (BMI) [Ratio] 23.4 kg/m2 [facility] 01-30-2023 09:32-0400 Body weight 60 kg [facility] 09-26-2022 09:15-0400 Body temperature 97.5 [degF] [facility] 09-26-2022 09:15-0400 Diastolic blood pressure 48 mm[Hg] [facility] 09-26-2022 09:15-0400 Heart rate 52 /min [facility] 09-26-2022 09:15-0400 Respiratory rate 16 /min [facility] 09-26-2022 09:15-0400 SaO2% (BldA) [Mass fraction] 98 % [facility] 09-26-2022 09:15-0400 Systolic blood pressure 128 mm[Hg] [facility] 09-26-2022 06:55-0400 Body height 160.02 cm [facility] 09-26-2022 06:55-0400 Body mass index (BMI) [Ratio] 22.2 kg/m2 [facility] 09-26-2022 06:55-0400 Body weight 57 kg [facility] 05-08-2022 09:20-0500 Body temperature 97 [degF] Dr. Brett Flores Work Phone: [facility] 05-08-2022 09:20-0500 Diastolic blood pressure 48 mm[Hg] Dr. Brett Flores Work Phone: [facility] 05-08-2022 09:20-0500 Heart rate 56 /min Dr. Brett Flores Work Phone: [facility] 05-08-2022 09:20-0500 Respiratory rate 18 /min Dr. Brett Flores Work Phone: [facility] 05-08-2022 09:20-0500 SaO2% (BldA) [Mass fraction] 97 % Dr. Brett Flores Work Phone: [facility] 05-08-2022 09:20-0500 Systolic blood pressure 155 mm[Hg] Dr. Brett Flores Work Phone: [facility] 05-08-2022 06:33-0500 Body height 160.[address] Brett Flores Work Phone: [facility] 05-08-2022 06:33-0500 Body mass index (BMI) [Ratio] 23 kg/m2 Dr. Brett Flores Work Phone: [facility] 05-08-2022 06:33-0500 Body weight [address] Brett Flores Work Phone: [facility] 04-09-2022 10:59-0400 Body height 160.[address] Brett Flores Work Phone: [facility] Work Phone: 04-09-2022 10:59-0400 Body mass index (BMI) [Ratio] 24 kg/m2 Dr. Brett Flores Work Phone: [facility] Work Phone: 04-09-2022 10:59-0400 Body weight 61.[address] Brett Flores Work Phone: [facility] Work Phone: 04-09-2022 10:59-0400 Diastolic blood pressure 68 mm[Hg] Dr. Brett Flores Work Phone: [facility] Work Phone: 04-09-2022 10:59-0400 Heart rate 62 /min Dr. Brett Flores Work Phone: [facility] Work Phone: 04-09-2022 10:59-0400 Respiratory rate 16 /min Dr. Brett Flores Work Phone: [facility] Work Phone: 04-09-2022 10:59-0400 SaO2% (BldA) [Mass fraction] 98 % Dr. Brett Flores Work Phone: [facility] Work Phone: 04-09-2022 10:59-0400 Systolic blood pressure 185 mm[Hg] Dr. Brett Flores Work Phone: [facility] Work Phone: 02-13-2022 08:25-0400 Body temperature 96.9 [degF] [facility] Work Phone: 02-13-2022 08:25-0400 Diastolic blood pressure 45 mm[Hg] [facility] Work Phone: 02-13-2022 08:25-0400 Heart rate 48 /min [facility] Work Phone: 02-13-2022 08:25-0400 Respiratory rate 16 /min [facility] Work Phone: 02-13-2022 08:25-0400 SaO2% (BldA) [Mass fraction] 96 % [facility] Work Phone: 02-13-2022 08:25-0400 Systolic blood pressure 127 mm[Hg] [facility] Work Phone: 02-13-2022 06:06-0400 Body height 160.02 cm [facility] Work Phone: 02-13-2022 06:06-0400 Body mass index (BMI) [Ratio] 22.8 kg/m2 [facility] Work Phone: 02-13-2022 06:06-0400 Body weight 58.51 kg [facility] Work Phone: 11-14-2021 14:00-0400 Body temperature 97.7 [degF] Dr. Brett Flores Work Phone: [facility] Work Phone: 11-14-2021 14:00-0400 Diastolic blood pressure 60 mm[Hg] Dr. Brett Flores Work Phone: [facility] Work Phone: 11-14-2021 14:00-0400 Heart rate 57 /min Dr. Brett Flores Work Phone: [facility] Work Phone: 11-14-2021 14:00-0400 Respiratory rate 16 /min Dr. Brett Flores Work Phone: [facility] Work Phone: 11-14-2021 14:00-0400 SaO2% (BldA) [Mass fraction] 98 % Dr. Brett Flores Work Phone: [facility] Work Phone: 11-14-2021 14:00-0400 Systolic blood pressure 175 mm[Hg] Dr. Brett Flores Work Phone: [facility] Work Phone: 11-14-2021 12:04-0400 Body height 160.[address] Brett Flores Work Phone: [facility] Work Phone: 11-14-2021 12:04-0400 Body mass index (BMI) [Ratio] 23.6 kg/m2 Dr. Brett Flores Work Phone: [facility] Work Phone: 11-14-2021 12:04-0400 Body weight 60.[address] Brett Flores Work Phone: [facility] Work Phone: 08-14-2021 12:15-0500 Body temperature 97.9 [degF] Dr. Brett Flores Work Phone: [facility] Work Phone: 08-14-2021 12:15-0500 Diastolic blood pressure 47 mm[Hg] Dr. Brett Flores Work Phone: [facility] Work Phone: 08-14-2021 12:15-0500 Heart rate 64 /min Dr. Brett Flores Work Phone: [facility] Work Phone: 08-14-2021 12:15-0500 Respiratory rate 18 /min Dr. Brett Flores Work Phone: [facility] Work Phone: 08-14-2021 12:15-0500 SaO2% (BldA) [Mass fraction] 94 % Dr. Brett Flores Work Phone: [facility] Work Phone: 08-14-2021 12:15-0500 Systolic blood pressure 164 mm[Hg] Dr. Brett Flores Work Phone: [facility] Work Phone: 08-14-2021 09:10-0500 Body weight 60.[address] Brett Flores Work Phone: [facility] Work Phone: 08-12-2021 15:49-0500 Body mass index (BMI) [Ratio] 23.7 kg/m2 Dr. Brett Flores Work Phone: [facility] Work Phone: Encounters Encounter Date Encounter Type Care Provider Facility Start: 11-24-2024 ambulatory [facility] Facility: [facility] Start: 11-22-2024 Encounter for other preprocedural examination [facility] Start: 07-14-2024 End: 07-14-2024 ambulatory [facility] Facility:[facility] Start: 03-17-2024 End: 03-17-2024 ambulatory [facility] Facility:[facility] Start: 12-17-2023 End: 12-17-2023 ambulatory [facility] Facility:[facility] Start: 08-27-2023 End: 08-27-2023 Admission to same day surgery center [facility] Start: 08-27-2023 End: 08-27-2023 ambulatory [facility] Work Phone: Start: 07-28-2023 Registered Referred [facility] Spec[facility] Work Phone: Start: 05-08-2023 End: 05-08-2023 Admission to same day surgery [facility] Start: 05-08-2023 End: 05-08-2023 ambulatory [facility] Work Phone: Start: 01-30-2023 End: 01-30-2023 Admission to same day surgery [facility] Start: 01-30-2023 End: 01-30-2023 ambulatory [facility] Work Phone: Start: 09-26-2022 End: 09-26-2022 Admission to same day surgery [facility] Start: 09-26-2022 End: 09-26-2022 ambulatory [facility] Work Phone: Start: 08-06-2022 End: 08-06-[address] Brett Flores Work Phone: [facility] Work Phone: Start: 08-06-2022 End: 08-06-[address] [facility] Start: 07-31-2022 End: 07-31-[address] Brett Flores Work Phone: [facility] Work Phone: Start: 07-31-2022 End: 07-31-[address] [facility] Start: 05-15-2022 End: 05-15-[address] Brett Folres Work Phone: [facility] Work Phone: Start: 05-15-2022 End: 05-15-[address] Brett Flores Work Phone: [facility] Start: 05-08-2022 End: 05-08-2022 Admission to same day surgery center Dr. Brett Flores Work Phone: [facility] Start: 05-08-2022 End: 05-08-[address] Brett Flores Work Phone: [facility] Work Phone: Start: 04-15-2022 Non-patient / Non-visit Dr. Davonte Flores Work Phone: [facility] Start: 04-15-2022 End: 04-15-[address] Brett Flores Work Phone: [facility] Work Phone: Start: 04-15-2022 End: 04-15-[address] Brett Flores Work Phone: [facility] Start: 04-09-2022 End: 04-09-[address] Brett Flores Work Phone: [facility] Start: 04-04-2022 End: 04-04-[address] Brett Flores Work Phone: [facility] Work Phone: Start: 04-04-2022 End: 04-04-[address] Brett Flores Work Phone: [facility] Start: 04-03-2022 Non-patient / Non-visit Dr. Davonte Flores Work Phone: [facility] Start: 02-13-2022 End: 02-13-2022 Admission to same day surgery center [facility] Start: 02-13-2022 End: 02-13-2022 ambulatory [facility] Work Phone: Start: 01-31-2022 End: 01-31-2022 ambulatory [facility] Work Phone: Start: 01-31-2022 End: 01-31-2022 Patient encounter procedure [facility] Start: 12-12-2021 End: 12-12-2021 Patient encounter procedure [facility] Start: 11-14-2021 End: 11-14-2021 Admission to same day surgery center [facility] Start: 08-14-2021 Non-patient / Non-visit Dr. Davonte Flores Work Phone: [facility] Start: 08-13-2021 Non-patient / Non-visit Dr. Davonte Flores Work Phone: [facility] Start: 08-12-2021 Non-patient / Non-visit Dr. Davonte Flores Work Phone: [facility] Start: 08-11-2021 Non-patient / Non-visit Dr. Davonte Flores Work Phone: [facility] Start: 08-11-2021 End: 08-14-2021 Evaluation and management of inpatient [facility] Date Procedure Procedure Detail Performing Clinician Start: 08-27-2023 Fluoroscopic guidance Start: 08-27-2023 Cystoscopy and retro grade pyelography Start: 05-08-2023 Fluoroscopic guidance Start: 05-08-2023 Introduction to urin doreen tract Start: 01-30-2023 Introduction to urin doreen tract Start: 01-30-2023 Fluoroscopic guidance Start: 09-26-2022 Cystoscopy and retro grade pyelography Start: 09-26-2022 Fluoroscopic guidance Start: 05-08-2022 Cystoscopy and retro grade pyelography Dr. Brett Flores Work Phone: Start: 05-08-2022 Fluoroscopic guidance Nando Flores Work Phone: Start: 02-13-2022 Fluoroscopic guidance Start: 02-13-2022 Cystoscopy and retro grade pyelography Start: 11-14-2021 Cystoscopy and retro grade pyelography Dr. Brett Flores Work Phone: Start: 11-14-2021 Fluoroscopic guidance Nando Flores Work Phone: Start: 08-13-2021 Bacteria identified in Blood by Culture Dr. Brett Flores Work Phone: Start: 08-12-2021 Fluoroscopic guidance Nando Flores Work Phone: Start: 08-12-2021 Introduction to urin doreen tract Dr. Brett Flores Work Phone: Start: 08-11-[address] Brett Flores Work Phone: Start: 08-11-2021 CT of abdomen and pe lvis with oral contrast Dr. Brett Flores Work Phone: Start: 10-09-2008 History of placement of stent for coronary artery disease History of coronary artery stent placement Dr. Brett Flores Work Phone: Plan of Treatment Date Care Activity Detail Author Start: 08-27-2023 Patient discharge [facility] Start: 05-08-2023 Anes transurethral w/urethrocystoscopy nos ANESTH BLADDER SURGERY [facility] Start: 05-08-2023 Remove & replace ind well ureteral stent trurthrl CHANGE STENT VIA TRANSURETH [facility] Start: 05-08-2023 Patient discharge [facility] Start: 01-30-2023 Anes transurethral w/urethrocystoscopy nos ANESTH BLADDER SURGERY [facility] Start: 01-30-2023 Cysto w/insert urete ral stent CYSTOSCOPY AND TREATMENT [facility] Start: 01-30-2023 Patient discharge [facility] Start: 09-26-2022 Patient discharge [facility] Start: 05-08-2022 Anes transurethral w/urethrocystoscopy nos ANESTH BLADDER SURGERY [facility] Start: 05-08-2022 Cysto w/insert urete ral stent CYSTOSCOPY AND TREATMENT [facility] Start: 05-08-2022 Patient discharge [facility] Start: 02-13-2022 Anes transurethral w/urethrocystoscopy nos ANESTH BLADDER SURGERY [facility] Work Phone: Start: 02-13-2022 Cysto w/insert urete ral stent CYSTOSCOPY AND TREATMENT [facility] Work Phone: Start: 02-13-2022 Patient discharge [facility] Work Phone: Start: 11-14-2021 Anes transurethral w/urethrocystoscopy nos ANESTH BLADDER SURGERY [facility] Work Phone: Start: 11-14-2021 Cysto w/insert urete ral stent CYSTOSCOPY AND TREATMENT [facility] Work Phone: Start: 11-14-2021 Patient discharge [facility] Work Phone: Measurement of respiratory function [facility] Work Phone: NM Heart Views W str ess and W radionuclide IV [facility] Work Phone: Patient referral [facility] Work Phone: Heart [facility] Work Phone: Immunizations Immunization Date Immunization Notes Care Provider Fa cility 06-08-2021 Covid (Moderna) Dr. Brett isbell Work Phone: [facility] 09-05-2020 Coriid (Moderna) Dr. Brett isbell Work Phone: [facility] 08-01-2020 Coriid (Moderna) Dr. Brett isbell Work Phone: [facility] 03-08-[address] Brett Flores Work Phone: [facility] 07-07-2019 influenza, injectabl e, quadrivalent, preservative free [facility] 07-07-2019 influenza, seasonal, injectable Dr. Brett Flores Work Phone: [facility] 03-08-[address] Brett Flores Work Phone: [facility] Payers Date Payer Category Payer Self-pay [id number] 2008 Medicare [id number] Unknown [id number] Unknown [id number] Unknown [id number] Unknown [id number] Social History Date Type Detail Facility [facility] Work Phone: Start: 11-07-2021 End: 08-24-2023 Tobacco smoking status NHIS Unknown if ever smoked [facility] Start: 07-06-2020 None [facility] Start: 06-27-2020 Non-smoker [facility] Start: 1940 Sex Assigned At Female [facility] Start: 01-23-2017 Alone [facility] NEGATED: Highlighted row [facility] Medical Equipment Procedure Code Equipment Code Equipment Origin al Text Equipment Identifier Dates Cystoscopy, with retrograde pyelogram, ureteroscopy, laser procedure, and stent inser STENT,URETERAL PIGTAIL [id number] FDA Start: 10-16-2020 Cystoscopy, with retrograde pyelogram, ureteroscopy, laser procedure, and stent inser STENT,URETERAL PIGTAIL [id number] FDA Start: 10-16-2020 Cystoscopy, with retrograde pyelogram, ureteroscopy, laser procedure, and stent inser STENT,URETERAL PIGTAIL [id number] FDA Start: 10-16-2020 Cystoscopy, with retrograde pyelogram, ureteroscopy, laser procedure, and stent inser STENT,URETERAL PIGTAIL [id number] FDA Start: 10-16-2020 Cystoscopy, with retrograde pyelogram, ureteroscopy, laser procedure, and stent inser STENT,URETERAL PIGTAIL [id number] FDA Start: 10-16-2020 Cystoscopy, with retrograde pyelogram, ureteroscopy, laser procedure, and stent inser STENT,URETERAL PIGTAIL [id number] FDA Start: 10-16-2020 Cystoscopy, with retrograde pyelogram, ureteroscopy, laser procedure, and stent inser STENT,URETERAL PIGTAIL [id number] FDA Start: 10-16-2020 Cystoscopy, with retrograde pyelogram, ureteroscopy, laser procedure, and stent inser STENT,URETERAL PIGTAIL [id number] FDA Start: 10-16-2020 Cystoscopy, with retrograde pyelogram, ureteroscopy, laser procedure, and stent inser STENT,URETERAL PIGTAIL [id number] FDA Start: 10-16-2020 Cystoscopy, with retrograde pyelogram, ureteroscopy, laser procedure, and stent inser STENT,URETERAL PIGTAIL 6FRx26 FDA Start: 10-16-2020 Cystoscopy, with retrograde pyelogram, ureteroscopy, laser procedure, and stent inser STENT,URETERAL PIGTAIL [id number] FDA Start: 10-16-2020 Cystoscopy, with retrograde pyelogram, ureteroscopy, laser procedure, and stent inser STENT,URETERAL PIGTAIL 6FRx26 FDA Start: 10-16-2020 Cystoscopy, with retrograde pyelogram, ureteroscopy, laser procedure, and stent inser STENT,URETERAL PIGTAIL 6FRX24 FDA Start: 10-16-2020 Cystoscopy, with retrograde pyelogram, ureteroscopy, laser procedure, and stent inser STENT,URETERAL PIGTAIL 6FRx26 FDA Start: 10-16-2020 Cystoscopy, with retrograde pyelogram, ureteroscopy, laser procedure, and stent inser STENT,URETERAL PIGTAIL [id number] FDA Start: 10-16-2020 Cystoscopy, with retrograde pyelogram, ureteroscopy, laser procedure, and stent inser STENT,URETERAL PIGTAIL 6FRx26 FDA Start: 10-16-2020 Cystoscopy, with retrograde pyelogram, ureteroscopy, laser procedure, and stent inser STENT,URETERAL PIGTAIL [id number] FDA Start: 10-16-2020 Cystoscopy, with retrograde pyelogram, ureteroscopy, laser procedure, and stent inser STENT,URETERAL PIGTAIL 6FRx26 FDA Start: 10-16-2020 Cystoscopy, with retrograde pyelogram, ureteroscopy, laser procedure, and stent inser STENT,URETERAL PIGTAIL [id number] FDA Start: 10-16-2020 Cystoscopy, with retrograde pyelogram, ureteroscopy, laser procedure, and stent inser STENT,URETERAL PIGTAIL 6FRx26 FDA Start: 10-16-2020 Cystoscopy, with retrograde pyelogram, ureteroscopy, laser procedure, and stent inser STENT,URETERAL PIGTAIL 6FRX24 FDA Start: 10-16-2020 Cystoscopy, with retrograde pyelogram, ureteroscopy, laser procedure, and stent inser STENT,URETERAL PIGTAIL 6FRx26 FDA Start: 10-16-2020 Cystoscopy, with retrograde pyelogram, ureteroscopy, laser procedure, and stent inser STENT,URETERAL PIGTAIL 6FRX24 FDA Start: 10-16-2020 Cystoscopy, with retrograde pyelogram, ureteroscopy, laser procedure, and stent inser STENT,URETERAL PIGTAIL 6FRx26 FDA Start: 10-16-2020 Cystoscopy, with retrograde pyelogram, ureteroscopy, laser procedure, and stent inser STENT,URETERAL PIGTAIL 6FRX24 FDA Start: 10-16-2020 Cystoscopy, with retrograde pyelogram, ureteroscopy, laser procedure, and stent inser STENT,URETERAL PIGTAIL 6FRx26 FDA Start: 10-16-2020 Cystoscopy, with retrograde pyelogram and ureteral stent insertion STENT,URETERAL PIGTAIL 6FRx26 FDA Start: 07-04-2020 Cystoscopy, with retrograde pyelogram and ureteral stent insertion STENT,URETERAL PIGTAIL 6FRx26 FDA Start: 07-04-2020 Cystoscopy, with retrograde pyelogram and ureteral stent insertion STENT,URETERAL PIGTAIL 6FRx26 FDA Start: 07-09-2020 Cystoscopy, with retrograde pyelogram and ureteral stent insertion STENT,URETERAL PIGTAIL 6FRX24 FDA Start: 01-14-2021 Cystoscopy, with retrograde pyelogram and ureteral stent insertion STENT,URETERAL PIGTAIL 6FRX24 FDA Start: 01-14-2021 Cystoscopy, with retrograde pyelogram and ureteral stent insertion STENT,URETERAL PIGTAIL 6FRx26 FDA Start: 07-04-2020 Cystoscopy, with retrograde pyelogram and ureteral stent insertion STENT,URETERAL PIGTAIL 6FRx26 FDA Start: 07-04-2020 Cystoscopy, with retrograde pyelogram and ureteral stent insertion STENT,URETERAL PIGTAIL 6FRx26 FDA Start: 07-09-2020 Cystoscopy, with retrograde pyelogram and ureteral stent insertion STENT,URETERAL PIGTAIL 6FRX24 FDA Start: 01-14-2021 Cystoscopy, with retrograde pyelogram and ureteral stent insertion STENT,URETERAL PIGTAIL 6FRX24 FDA Start: 01-14-2021 Cystoscopy, with retrograde pyelogram and ureteral stent insertion STENT,URETERAL PIGTAIL 6FRX24 FDA Start: 11-14-2021 Cystoscopy, with retrograde pyelogram and ureteral stent insertion STENT,URETERAL PIGTAIL 6FRx22 FDA Start: 11-14-2021 Cystoscopy, with retrograde pyelogram and ureteral stent insertion STENT,URETERAL PIGTAIL 6FRx26 FDA Start: 07-04-2020 Cystoscopy, with retrograde pyelogram and ureteral stent insertion STENT,URETERAL PIGTAIL 6FRx26 FDA Start: 07-04-2020 Cystoscopy, with retrograde pyelogram and ureteral stent insertion STENT,URETERAL PIGTAIL 6FRx26 FDA Start: 07-09-2020 Cystoscopy, with retrograde pyelogram and ureteral stent insertion STENT,URETERAL PIGTAIL 6FRX24 FDA Start: 01-14-2021 Cystoscopy, with retrograde pyelogram and ureteral stent insertion STENT,URETERAL PIGTAIL 6FRX24 FDA Start: 01-14-2021 Cystoscopy, with retrograde pyelogram and ureteral stent insertion STENT,URETERAL PIGTAIL 6FRX24 FDA Start: 11-14-2021 Cystoscopy, with retrograde pyelogram and ureteral stent insertion STENT,URETERAL PIGTAIL 6FRx22 FDA Start: 11-14-2021 Cystoscopy, with retrograde pyelogram and ureteral stent insertion STENT,URETERAL PIGTAIL 6FRx26 FDA Start: 07-04-2020 Cystoscopy, with retrograde pyelogram and ureteral stent insertion STENT,URETERAL PIGTAIL 6FRx26 FDA Start: 07-04-2020 Cystoscopy, with retrograde pyelogram and ureteral stent insertion STENT,URETERAL PIGTAIL 6FRx26 FDA Start: 07-09-2020 Cystoscopy, with retrograde pyelogram and ureteral stent insertion STENT,URETERAL PIGTAIL 6FRX24 FDA Start: 01-14-2021 Cystoscopy, with retrograde pyelogram and ureteral stent insertion STENT,URETERAL PIGTAIL 6FRX24 FDA Start: 01-14-2021 Cystoscopy, with retrograde pyelogram and ureteral stent insertion STENT,URETERAL PIGTAIL 6FRX24 FDA Start: 11-14-2021 Cystoscopy, with retrograde pyelogram and ureteral stent insertion STENT,URETERAL PIGTAIL 6FRx22 FDA Start: 11-14-2021 Cystoscopy, with retrograde pyelogram and ureteral stent insertion STENT,URETERAL PIGTAIL 6FRX24 FDA Start: 02-13-2022 Cystoscopy, with retrograde pyelogram and ureteral stent insertion STENT,URETERAL PIGTAIL 6FRX24 FDA Start: 02-13-2022 Cystoscopy, with retrograde pyelogram and ureteral stent insertion STENT,URETERAL PIGTAIL 6FRx26 FDA Start: 07-04-2020 Cystoscopy, with retrograde pyelogram and ureteral stent insertion STENT,URETERAL PIGTAIL 6FRx26 FDA Start: 07-04-2020 Cystoscopy, with retrograde pyelogram and ureteral stent insertion STENT,URETERAL PIGTAIL 6FRx26 FDA Start: 07-09-2020 Cystoscopy, with retrograde pyelogram and ureteral stent insertion STENT,URETERAL PIGTAIL 6FRX24 FDA Start: 01-14-2021 Cystoscopy, with retrograde pyelogram and ureteral stent insertion STENT,URETERAL PIGTAIL 6FRX24 FDA Start: 01-14-2021 Cystoscopy, with retrograde pyelogram and ureteral stent insertion STENT,URETERAL PIGTAIL 6FRX24 FDA Start: 11-14-2021 Cystoscopy, with retrograde pyelogram and ureteral stent insertion STENT,URETERAL PIGTAIL 6FRx22 FDA Start: 11-14-2021 Cystoscopy, with retrograde pyelogram and ureteral stent insertion STENT,URETERAL PIGTAIL 6FRX24 FDA Start: 02-13-2022 Cystoscopy, with retrograde pyelogram and ureteral stent insertion STENT,URETERAL PIGTAIL 6FRX24 FDA Start: 02-13-2022 Cystoscopy, with retrograde pyelogram and ureteral stent insertion STENT,URETERAL PIGTAIL 6FRx26 FDA Start: 07-04-2020 Cystoscopy, with retrograde pyelogram and ureteral stent insertion STENT,URETERAL PIGTAIL 6FRx26 FDA Start: 07-04-2020 Cystoscopy, with retrograde pyelogram and ureteral stent insertion STENT,URETERAL PIGTAIL 6FRx26 FDA Start: 07-09-2020 Cystoscopy, with retrograde pyelogram and ureteral stent insertion STENT,URETERAL PIGTAIL 6FRX24 FDA Start: 01-14-2021 Cystoscopy, with retrograde pyelogram and ureteral stent insertion STENT,URETERAL PIGTAIL 6FRX24 FDA Start: 01-14-2021 Cystoscopy, with retrograde pyelogram and ureteral stent insertion STENT,URETERAL PIGTAIL 6FRX24 FDA Start: 11-14-2021 Cystoscopy, with retrograde pyelogram and ureteral stent insertion STENT,URETERAL PIGTAIL 6FRx22 FDA Start: 11-14-2021 Cystoscopy, with retrograde pyelogram and ureteral stent insertion STENT,URETERAL PIGTAIL 6FRX24 FDA Start: 02-13-2022 Cystoscopy, with retrograde pyelogram and ureteral stent insertion STENT,URETERAL PIGTAIL 6FRX24 FDA Start: 02-13-2022 Cystoscopy, with retrograde pyelogram and ureteral stent insertion STENT,URETERAL PIGTAIL 6FRx26 FDA Start: 07-04-2020 Cystoscopy, with retrograde pyelogram and ureteral stent insertion STENT,URETERAL PIGTAIL 6FRx26 FDA Start: 07-04-2020 Cystoscopy, with retrograde pyelogram and ureteral stent insertion STENT,URETERAL PIGTAIL 6FRx26 FDA Start: 07-09-2020 Cystoscopy, with retrograde pyelogram and ureteral stent insertion STENT,URETERAL PIGTAIL 6FRX24 FDA Start: 01-14-2021 Cystoscopy, with retrograde pyelogram and ureteral stent insertion STENT,URETERAL PIGTAIL 6FRX24 FDA Start: 01-14-2021 Cystoscopy, with retrograde pyelogram and ureteral stent insertion STENT,URETERAL PIGTAIL 6FRX24 FDA Start: 11-14-2021 Cystoscopy, with retrograde pyelogram and ureteral stent insertion STENT,URETERAL PIGTAIL 6FRx22 FDA Start: 11-14-2021 Cystoscopy, with retrograde pyelogram and ureteral stent insertion STENT,URETERAL PIGTAIL 6FRX24 FDA Start: 02-13-2022 Cystoscopy, with retrograde pyelogram and ureteral stent insertion STENT,URETERAL PIGTAIL 6FRX24 FDA Start: 02-13-2022 Cystoscopy, with retrograde pyelogram and ureteral stent insertion ([id number]) Polymeric ureteral stent ()[id number] FDA Start: 05-08-2022 Cystoscopy, with retrograde pyelogram and ureteral stent insertion STENT,URETERAL PIGTAIL 6FRx26 FDA Start: 07-04-2020 Cystoscopy, with retrograde pyelogram and ureteral stent insertion STENT,URETERAL PIGTAIL 6FRx26 FDA Start: 07-04-2020 Cystoscopy, with retrograde pyelogram and ureteral stent insertion STENT,URETERAL PIGTAIL 6FRx26 FDA Start: 07-09-2020 Cystoscopy, with retrograde pyelogram and ureteral stent insertion STENT,URETERAL PIGTAIL 6FRX24 FDA Start: 01-14-2021 Cystoscopy, with retrograde pyelogram and ureteral stent insertion STENT,URETERAL PIGTAIL 6FRX24 FDA Start: 01-14-2021 Cystoscopy, with retrograde pyelogram and ureteral stent insertion STENT,URETERAL PIGTAIL 6FRX24 FDA Start: 11-14-2021 Cystoscopy, with retrograde pyelogram and ureteral stent insertion STENT,URETERAL PIGTAIL 6FRx22 FDA Start: 11-14-2021 Cystoscopy, with retrograde pyelogram and ureteral stent insertion STENT,URETERAL PIGTAIL 6FRX24 FDA Start: 02-13-2022 Cystoscopy, with retrograde pyelogram and ureteral stent insertion STENT,URETERAL PIGTAIL 6FRX24 FDA Start: 02-13-2022 Cystoscopy, with retrograde pyelogram and ureteral stent insertion STENT,URETERAL PIGTAIL 6FRx26 FDA Start: 07-04-2020 Cystoscopy, with retrograde pyelogram and ureteral stent insertion STENT,URETERAL PIGTAIL 6FRx26 FDA Start: 07-04-2020 Cystoscopy, with retrograde pyelogram and ureteral stent insertion STENT,URETERAL PIGTAIL 6FRx26 FDA Start: 07-09-2020 Cystoscopy, with retrograde pyelogram and ureteral stent insertion STENT,URETERAL PIGTAIL 6FRX24 FDA Start: 01-14-2021 Cystoscopy, with retrograde pyelogram and ureteral stent insertion STENT,URETERAL PIGTAIL 6FRX24 FDA Start: 01-14-2021 Cystoscopy, with retrograde pyelogram and ureteral stent insertion STENT,URETERAL PIGTAIL 6FRX24 FDA Start: 11-14-2021 Cystoscopy, with retrograde pyelogram and ureteral stent insertion STENT,URETERAL PIGTAIL 6FRx22 FDA Start: 11-14-2021 Cystoscopy, with retrograde pyelogram and ureteral stent insertion STENT,URETERAL PIGTAIL 6FRX24 FDA Start: 02-13-2022 Cystoscopy, with retrograde pyelogram and ureteral stent insertion STENT,URETERAL PIGTAIL 6FRX24 FDA Start: 02-13-2022 Cystoscopy, with retrograde pyelogram and ureteral stent insertion STENT,URETERAL PIGTAIL 6FRx26 FDA Start: 07-04-2020 Cystoscopy, with retrograde pyelogram and ureteral stent insertion STENT,URETERAL PIGTAIL 6FRx26 FDA Start: 07-04-2020 Cystoscopy, with retrograde pyelogram and ureteral stent insertion STENT,URETERAL PIGTAIL 6FRx26 FDA Start: 07-09-2020 Cystoscopy, with retrograde pyelogram and ureteral stent insertion STENT,URETERAL PIGTAIL 6FRX24 FDA Start: 01-14-2021 Cystoscopy, with retrograde pyelogram and ureteral stent insertion STENT,URETERAL PIGTAIL 6FRX24 FDA Start: 01-14-2021 Cystoscopy, with retrograde pyelogram and ureteral stent insertion STENT,URETERAL PIGTAIL 6FRX24 FDA Start: 11-14-2021 Cystoscopy, with retrograde pyelogram and ureteral stent insertion STENT,URETERAL PIGTAIL 6FRx22 FDA Start: 11-14-2021 Cystoscopy, with retrograde pyelogram and ureteral stent insertion STENT,URETERAL PIGTAIL 6FRX24 FDA Start: 02-13-2022 Cystoscopy, with retrograde pyelogram and ureteral stent insertion STENT,URETERAL PIGTAIL 6FRX24 FDA Start: 02-13-2022 Cystoscopy, with retrograde pyelogram and ureteral stent insertion STENT,URETERAL PIGTAIL 6FRx26 FDA Start: 07-04-2020 Cystoscopy, with retrograde pyelogram and ureteral stent insertion STENT,URETERAL PIGTAIL 6FRx26 FDA Start: 07-04-2020 Cystoscopy, with retrograde pyelogram and ureteral stent insertion STENT,URETERAL PIGTAIL 6FRx26 FDA Start: 07-09-2020 Cystoscopy, with retrograde pyelogram and ureteral stent insertion STENT,URETERAL PIGTAIL 6FRX24 FDA Start: 01-14-2021 Cystoscopy, with retrograde pyelogram and ureteral stent insertion STENT,URETERAL PIGTAIL 6FRX24 FDA Start: 01-14-2021 Cystoscopy, with retrograde pyelogram and ureteral stent insertion STENT,URETERAL PIGTAIL 6FRX24 FDA Start: 11-14-2021 Cystoscopy, with retrograde pyelogram and ureteral stent insertion STENT,URETERAL PIGTAIL 6FRx22 FDA Start: 11-14-2021 Cystoscopy, with retrograde pyelogram and ureteral stent insertion STENT,URETERAL PIGTAIL 6FRX24 FDA Start: 02-13-2022 Cystoscopy, with retrograde pyelogram and ureteral stent insertion STENT,URETERAL PIGTAIL 6FRX24 FDA Start: 02-13-2022 Cystoscopy, with retrograde pyelogram and ureteral stent insertion ([id number]) Polymeric ureteral stent ()[id number] FDA Start: 09-26-2022 Cystoscopy, with retrograde pyelogram and ureteral stent insertion STENT,URETERAL PIGTAIL 6FRx26 FDA Start: 07-04-2020 Cystoscopy, with retrograde pyelogram and ureteral stent insertion STENT,URETERAL PIGTAIL 6FRx26 FDA Start: 07-04-2020 Cystoscopy, with retrograde pyelogram and ureteral stent insertion STENT,URETERAL PIGTAIL 6FRx26 FDA Start: 07-09-2020 Cystoscopy, with retrograde pyelogram and ureteral stent insertion STENT,URETERAL PIGTAIL 6FRX24 FDA Start: 01-14-2021 Cystoscopy, with retrograde pyelogram and ureteral stent insertion STENT,URETERAL PIGTAIL 6FRX24 FDA Start: 01-14-2021 Cystoscopy, with retrograde pyelogram and ureteral stent insertion STENT,URETERAL PIGTAIL 6FRX24 FDA Start: 11-14-2021 Cystoscopy, with retrograde pyelogram and ureteral stent insertion STENT,URETERAL PIGTAIL 6FRx22 FDA Start: 11-14-2021 Cystoscopy, with retrograde pyelogram and ureteral stent insertion STENT,URETERAL PIGTAIL 6FRX24 FDA Start: 02-13-2022 Cystoscopy, with retrograde pyelogram and ureteral stent insertion STENT,URETERAL PIGTAIL 6FRX24 FDA Start: 02-13-2022 Cystoscopy, with retrograde pyelogram and ureteral stent insertion STENT,URETERAL PIGTAIL 6FRx26 FDA Start: 07-04-2020 Cystoscopy, with retrograde pyelogram and ureteral stent insertion STENT,URETERAL PIGTAIL 6FRx26 FDA Start: 07-04-2020 Cystoscopy, with retrograde pyelogram and ureteral stent insertion STENT,URETERAL PIGTAIL 6FRx26 FDA Start: 07-09-2020 Cystoscopy, with retrograde pyelogram and ureteral stent insertion STENT,URETERAL PIGTAIL 6FRX24 FDA Start: 01-14-2021 Cystoscopy, with retrograde pyelogram and ureteral stent insertion STENT,URETERAL PIGTAIL 6FRX24 FDA Start: 01-14-2021 Cystoscopy, with retrograde pyelogram and ureteral stent insertion STENT,URETERAL PIGTAIL 6FRX24 FDA Start: 11-14-2021 Cystoscopy, with retrograde pyelogram and ureteral stent insertion STENT,URETERAL PIGTAIL 6FRx22 FDA Start: 11-14-2021 Cystoscopy, with retrograde pyelogram and ureteral stent insertion STENT,URETERAL PIGTAIL 6FRX24 FDA Start: 02-13-2022 Cystoscopy, with retrograde pyelogram and ureteral stent insertion STENT,URETERAL PIGTAIL 6FRX24 FDA Start: 02-13-2022 Cystoscopic insertion of stent STENT,URETERAL 6FR PIG 6X26 FDA Start: 07-22-2019 Cystoscopic insertion of stent STENT,URETERAL 6FR PIG 6X26 FDA Start: 12-23-2019 Cystoscopic insertion of stent STENT,URETERAL 6FR PIG 6X26 FDA Start: 12-23-2019 Cystoscopic insertion of stent STENT,URETERAL PIGTAIL 6FRX24 FDA Start: 06-03-2021 Cystoscopic insertion of stent STENT,URETERAL PIGTAIL 6FRX24 FDA Start: 06-03-2021 Cystoscopic insertion of stent STENT,URETERAL PIGTAIL 6FRX24 FDA Start: 08-12-2021 Cystoscopic insertion of stent STENT,URETERAL PIGTAIL 6FRX24 FDA Start: 08-12-2021 Cystoscopic insertion of stent STENT,URETERAL 6FR PIG 6X26 FDA Start: 08-25-2018 Cystoscopic insertion of stent STENT,URETERAL 6FR PIG 6X26 FDA Start: 08-25-2018 Cystoscopic insertion of stent STENT,URETERAL PIGTAIL 6FRX24 FDA Start: 01-12-2019 Cystoscopic insertion of stent STENT,URETERAL PIGTAIL 6FRX24 FDA Start: 01-12-2019 Cystoscopic insertion of stent STENT,URETERAL 6FR PIG 6X26 FDA Start: 07-22-2019 Cystoscopic insertion of stent STENT,URETERAL 6FR PIG 6X26 FDA Start: 12-23-2019 Cystoscopic insertion of stent STENT,URETERAL 6FR PIG 6X26 FDA Start: 12-23-2019 Cystoscopic insertion of stent STENT,URETERAL PIGTAIL 6FRX24 FDA Start: 06-03-2021 Cystoscopic insertion of stent STENT,URETERAL PIGTAIL 6FRX24 FDA Start: 06-03-2021 Cystoscopic insertion of stent STENT,URETERAL PIGTAIL 6FRX24 FDA Start: 08-12-2021 Cystoscopic insertion of stent STENT,URETERAL PIGTAIL 6FRX24 FDA Start: 08-12-2021 Cystoscopic insertion of stent STENT,URETERAL 6FR PIG 6X26 FDA Start: 08-25-2018 Cystoscopic insertion of stent STENT,URETERAL 6FR PIG 6X26 FDA Start: 08-25-2018 Cystoscopic insertion of stent STENT,URETERAL PIGTAIL 6FRX24 FDA Start: 01-12-2019 Cystoscopic insertion of stent STENT,URETERAL PIGTAIL 6FRX24 FDA Start: 01-12-2019 Cystoscopic insertion of stent STENT,URETERAL 6FR PIG 6X26 FDA Start: 07-22-2019 Cystoscopic insertion of stent STENT,URETERAL 6FR PIG 6X26 FDA Start: 12-23-2019 Cystoscopic insertion of stent STENT,URETERAL 6FR PIG 6X26 FDA Start: 12-23-2019 Cystoscopic insertion of stent STENT,URETERAL PIGTAIL 6FRX24 FDA Start: 06-03-2021 Cystoscopic insertion of stent STENT,URETERAL PIGTAIL 6FRX24 FDA Start: 06-03-2021 Cystoscopic insertion of stent STENT,URETERAL PIGTAIL 6FRX24 FDA Start: 08-12-2021 Cystoscopic insertion of stent STENT,URETERAL PIGTAIL 6FRX24 FDA Start: 08-12-2021 Cystoscopic insertion of stent STENT,URETERAL 6FR PIG 6X26 FDA Start: 08-25-2018 Cystoscopic insertion of stent STENT,URETERAL 6FR PIG 6X26 FDA Start: 08-25-2018 Cystoscopic insertion of stent STENT,URETERAL PIGTAIL 6FRX24 FDA Start: 01-12-2019 Cystoscopic insertion of stent STENT,URETERAL PIGTAIL 6FRX24 FDA Start: 01-12-2019 Cystoscopic insertion of stent STENT,URETERAL 6FR PIG 6X26 FDA Start: 07-22-2019 Cystoscopic insertion of stent STENT,URETERAL 6FR PIG 6X26 FDA Start: 12-23-2019 Cystoscopic insertion of stent STENT,URETERAL 6FR PIG 6X26 FDA Start: 12-23-2019 Cystoscopic insertion of stent STENT,URETERAL PIGTAIL 6FRX24 FDA Start: 06-03-2021 Cystoscopic insertion of stent STENT,URETERAL PIGTAIL 6FRX24 FDA Start: 06-03-2021 Cystoscopic insertion of stent STENT,URETERAL PIGTAIL 6FRX24 FDA Start: 08-12-2021 Cystoscopic insertion of stent STENT,URETERAL PIGTAIL 6FRX24 FDA Start: 08-12-2021 Cystoscopic insertion of stent STENT,URETERAL 6FR PIG 6X26 FDA Start: 08-25-2018 Cystoscopic insertion of stent STENT,URETERAL 6FR PIG 6X26 FDA Start: 08-25-2018 Cystoscopic insertion of stent STENT,URETERAL PIGTAIL 6FRX24 FDA Start: 01-12-2019 Cystoscopic insertion of stent STENT,URETERAL PIGTAIL 6FRX24 FDA Start: 01-12-2019 Cystoscopic insertion of stent STENT,URETERAL 6FR PIG 6X26 FDA Start: 07-22-2019 Cystoscopic insertion of stent STENT,URETERAL 6FR PIG 6X26 FDA Start: 12-23-2019 Cystoscopic insertion of stent STENT,URETERAL 6FR PIG 6X26 FDA Start: 12-23-2019 Cystoscopic insertion of stent STENT,URETERAL PIGTAIL 6FRX24 FDA Start: 06-03-2021 Cystoscopic insertion of stent STENT,URETERAL PIGTAIL 6FRX24 FDA Start: 06-03-2021 Cystoscopic insertion of stent STENT,URETERAL PIGTAIL 6FRX24 FDA Start: 08-12-2021 Cystoscopic insertion of stent STENT,URETERAL PIGTAIL 6FRX24 FDA Start: 08-12-2021 Cystoscopic insertion of stent STENT,URETERAL 6FR PIG 6X26 FDA Start: 08-25-2018 Cystoscopic insertion of stent STENT,URETERAL 6FR PIG 6X26 FDA Start: 08-25-2018 Cystoscopic insertion of stent STENT,URETERAL PIGTAIL 6FRX24 FDA Start: 01-12-2019 Cystoscopic insertion of stent STENT,URETERAL PIGTAIL 6FRX24 FDA Start: 01-12-2019 Cystoscopic insertion of stent STENT,URETERAL 6FR PIG 6X26 FDA Start: 07-22-2019 Cystoscopic insertion of stent STENT,URETERAL 6FR PIG 6X26 FDA Start: 12-23-2019 Cystoscopic insertion of stent STENT,URETERAL 6FR PIG 6X26 FDA Start: 12-23-2019 Cystoscopic insertion of stent STENT,URETERAL PIGTAIL 6FRX24 FDA Start: 06-03-2021 Cystoscopic insertion of stent STENT,URETERAL PIGTAIL 6FRX24 FDA Start: 06-03-2021 Cystoscopic insertion of stent STENT,URETERAL PIGTAIL 6FRX24 FDA Start: 08-12-2021 Cystoscopic insertion of stent STENT,URETERAL PIGTAIL 6FRX24 FDA Start: 08-12-2021 Cystoscopic insertion of stent STENT,URETERAL 6FR PIG 6X26 FDA Start: 08-25-2018 Cystoscopic insertion of stent STENT,URETERAL 6FR PIG 6X26 FDA Start: 08-25-2018 Cystoscopic insertion of stent STENT,URETERAL PIGTAIL 6FRX24 FDA Start: 01-12-2019 Cystoscopic insertion of stent STENT,URETERAL PIGTAIL 6FRX24 FDA Start: 01-12-2019 Cystoscopic insertion of stent STENT,URETERAL 6FR PIG 6X26 FDA Start: 07-22-2019 Cystoscopic insertion of stent STENT,URETERAL 6FR PIG 6X26 FDA Start: 12-23-2019 Cystoscopic insertion of stent STENT,URETERAL 6FR PIG 6X26 FDA Start: 12-23-2019 Cystoscopic insertion of stent STENT,URETERAL PIGTAIL 6FRX24 FDA Start: 06-03-2021 Cystoscopic insertion of stent STENT,URETERAL PIGTAIL 6FRX24 FDA Start: 06-03-2021 Cystoscopic insertion of stent STENT,URETERAL PIGTAIL 6FRX24 FDA Start: 08-12-2021 Cystoscopic insertion of stent STENT,URETERAL PIGTAIL 6FRX24 FDA Start: 08-12-2021 Cystoscopic insertion of stent STENT,URETERAL 6FR PIG 6X26 FDA Start: 08-25-2018 Cystoscopic insertion of stent STENT,URETERAL 6FR PIG 6X26 FDA Start: 08-25-2018 Cystoscopic insertion of stent STENT,URETERAL PIGTAIL 6FRX24 FDA Start: 01-12-2019 Cystoscopic insertion of stent STENT,URETERAL PIGTAIL 6FRX24 FDA Start: 01-12-2019 Cystoscopic insertion of stent STENT,URETERAL 6FR PIG 6X26 FDA Start: 07-22-2019 Cystoscopic insertion of stent STENT,URETERAL 6FR PIG 6X26 FDA Start: 12-23-2019 Cystoscopic insertion of stent STENT,URETERAL 6FR PIG 6X26 FDA Start: 12-23-2019 Cystoscopic insertion of stent STENT,URETERAL PIGTAIL 6FRX24 FDA Start: 06-03-2021 Cystoscopic insertion of stent STENT,URETERAL PIGTAIL 6FRX24 FDA Start: 06-03-2021 Cystoscopic insertion of stent STENT,URETERAL PIGTAIL 6FRX24 FDA Start: 08-12-2021 Cystoscopic insertion of stent STENT,URETERAL PIGTAIL 6FRX24 FDA Start: 08-12-2021 Cystoscopic insertion of stent STENT,URETERAL 6FR PIG 6X26 FDA Start: 08-25-2018 Cystoscopic insertion of stent STENT,URETERAL 6FR PIG 6X26 FDA Start: 08-25-2018 Cystoscopic insertion of stent STENT,URETERAL PIGTAIL 6FRX24 FDA Start: 01-12-2019 Cystoscopic insertion of stent STENT,URETERAL PIGTAIL 6FRX24 FDA Start: 01-12-2019 Cystoscopic insertion of stent STENT,URETERAL 6FR PIG 6X26 FDA Start: 07-22-2019 Cystoscopic insertion of stent STENT,URETERAL 6FR PIG 6X26 FDA Start: 12-23-2019 Cystoscopic insertion of stent STENT,URETERAL 6FR PIG 6X26 FDA Start: 12-23-2019 Cystoscopic insertion of stent STENT,URETERAL PIGTAIL 6FRX24 FDA Start: 06-03-2021 Cystoscopic insertion of stent STENT,URETERAL PIGTAIL 6FRX24 FDA Start: 06-03-2021 Cystoscopic insertion of stent STENT,URETERAL PIGTAIL 6FRX24 FDA Start: 08-12-2021 Cystoscopic insertion of stent STENT,URETERAL PIGTAIL 6FRX24 FDA Start: 08-12-2021 Cystoscopic insertion of stent STENT,URETERAL 6FR PIG 6X26 FDA Start: 08-25-2018 Cystoscopic insertion of stent STENT,URETERAL 6FR PIG 6X26 FDA Start: 08-25-2018 Cystoscopic insertion of stent STENT,URETERAL PIGTAIL 6FRX24 FDA Start: 01-12-2019 Cystoscopic insertion of stent STENT,URETERAL PIGTAIL 6FRX24 FDA Start: 01-12-2019 Cystoscopic insertion of stent STENT,URETERAL 6FR PIG 6X26 FDA Start: 07-22-2019 Cystoscopic insertion of stent STENT,URETERAL 6FR PIG 6X26 FDA Start: 12-23-2019 Cystoscopic insertion of stent STENT,URETERAL 6FR PIG 6X26 FDA Start: 12-23-2019 Cystoscopic insertion of stent STENT,URETERAL PIGTAIL 6FRX24 FDA Start: 06-03-2021 Cystoscopic insertion of stent STENT,URETERAL PIGTAIL 6FRX24 FDA Start: 06-03-2021 Cystoscopic insertion of stent STENT,URETERAL PIGTAIL 6FRX24 FDA Start: 08-12-2021 Cystoscopic insertion of stent STENT,URETERAL PIGTAIL 6FRX24 FDA Start: 08-12-2021 Cystoscopic insertion of stent STENT,URETERAL 6FR PIG 6X26 FDA Start: 08-25-2018 Cystoscopic insertion of stent STENT,URETERAL 6FR PIG 6X26 FDA Start: 08-25-2018 Cystoscopic insertion of stent STENT,URETERAL PIGTAIL 6FRX24 FDA Start: 01-12-2019 Cystoscopic insertion of stent STENT,URETERAL PIGTAIL 6FRX24 FDA Start: 01-12-2019 Cystoscopic insertion of stent STENT,URETERAL 6FR PIG 6X26 FDA Start: 07-22-2019 Cystoscopic insertion of stent STENT,URETERAL 6FR PIG 6X26 FDA Start: 12-23-2019 Cystoscopic insertion of stent STENT,URETERAL 6FR PIG 6X26 FDA Start: 12-23-2019 Cystoscopic insertion of stent STENT,URETERAL PIGTAIL 6FRX24 FDA Start: 06-03-2021 Cystoscopic insertion of stent STENT,URETERAL PIGTAIL 6FRX24 FDA Start: 06-03-2021 Cystoscopic insertion of stent STENT,URETERAL PIGTAIL 6FRX24 FDA Start: 08-12-2021 Cystoscopic insertion of stent STENT,URETERAL PIGTAIL 6FRX24 FDA Start: 08-12-2021 Cystoscopic insertion of stent STENT,URETERAL 6FR PIG 6X26 FDA Start: 08-25-2018 Cystoscopic insertion of stent STENT,URETERAL 6FR PIG 6X26 FDA Start: 08-25-2018 Cystoscopic insertion of stent STENT,URETERAL PIGTAIL 6FRX24 FDA Start: 01-12-2019 Cystoscopic insertion of stent STENT,URETERAL PIGTAIL 6FRX24 FDA Start: 01-12-2019 Cystoscopic insertion of stent STENT,URETERAL 6FR PIG 6X26 FDA Start: 07-22-2019 Cystoscopic insertion of stent STENT,URETERAL 6FR PIG 6X26 FDA Start: 12-23-2019 Cystoscopic insertion of stent STENT,URETERAL 6FR PIG 6X26 FDA Start: 12-23-2019 Cystoscopic insertion of stent STENT,URETERAL PIGTAIL 6FRX24 FDA Start: 06-03-2021 Cystoscopic insertion of stent STENT,URETERAL PIGTAIL 6FRX24 FDA Start: 06-03-2021 Cystoscopic insertion of stent STENT,URETERAL PIGTAIL 6FRX24 FDA Start: 08-12-2021 Cystoscopic insertion of stent STENT,URETERAL PIGTAIL 6FRX24 FDA Start: 08-12-2021 Cystoscopic insertion of stent STENT,URETERAL PIGTAIL 6FRX24 FDA Start: 01-30-2023 Cystoscopic insertion of stent STENT,URETERAL PIGTAIL 6FRX24 FDA Start: 01-30-2023 Cystoscopic insertion of stent STENT,URETERAL 6FR PIG 6X26 FDA Start: 08-25-2018 Cystoscopic insertion of stent STENT,URETERAL 6FR PIG 6X26 FDA Start: 08-25-2018 Cystoscopic insertion of stent STENT,URETERAL PIGTAIL 6FRX24 FDA Start: 01-12-2019 Cystoscopic insertion of stent STENT,URETERAL PIGTAIL 6FRX24 FDA Start: 01-12-2019 Cystoscopic insertion of stent STENT,URETERAL 6FR PIG 6X26 FDA Start: 07-22-2019 Cystoscopic insertion of stent STENT,URETERAL 6FR PIG 6X26 FDA Start: 12-23-2019 Cystoscopic insertion of stent STENT,URETERAL 6FR PIG 6X26 FDA Start: 12-23-2019 Cystoscopic insertion of stent STENT,URETERAL PIGTAIL 6FRX24 FDA Start: 06-03-2021 Cystoscopic insertion of stent STENT,URETERAL PIGTAIL 6FRX24 FDA Start: 06-03-2021 Cystoscopic insertion of stent STENT,URETERAL PIGTAIL 6FRX24 FDA Start: 08-12-2021 Cystoscopic insertion of stent STENT,URETERAL PIGTAIL 6FRX24 FDA Start: 08-12-2021 Cystoscopic insertion of stent STENT,URETERAL PIGTAIL 6FRX24 FDA Start: 01-30-2023 Cystoscopic insertion of stent STENT,URETERAL PIGTAIL 6FRX24 FDA Start: 01-30-2023 Cystoscopic insertion of stent ([id number]) Polymeric ureteral stent ()[id number] 0 FDA Start: 05-08-2023 Cystoscopic insertion of stent STENT,URETERAL 6FR PIG 6X26 FDA Start: 08-25-2018 Cystoscopic insertion of stent STENT,URETERAL 6FR PIG 6X26 FDA Start: 08-25-2018 Cystoscopic insertion of stent STENT,URETERAL PIGTAIL 6FRX24 FDA Start: 01-12-2019 Cystoscopic insertion of stent STENT,URETERAL PIGTAIL 6FRX24 FDA Start: 01-12-2019 STENT,URETERAL 6 FR PIG 6X26 FDA Start: 05-15-2017 STENT,URETERAL 6 FR PIG 6X26 FDA Start: 05-15-2017 STENT,URETERAL 6 FR PIG 6X26 FDA Start: 09-25-2017 STENT,URETERAL 6 FR PIG 6X26 FDA Start: 09-25-2017 STENT,URETERAL 6 FR PIG 6X26 FDA Start: 02-10-2018 STENT,URETERAL 6 FR PIG 6X26 FDA Start: 02-10-2018 SUTURE,LIGA CLIP MED LT200 FDA Start: 04-11-2019 SUTURE,LIGA CLIP MED LT200 FDA Start: 04-11-2019 SUTURE,LIGA CLIP SM LT-100 FDA Start: 04-11-2019 SUTURE,LIGA CLIP SM LT-100 FDA Start: 04-11-2019 SUTURE,LIGA CLIP SM LT-100 FDA Start: 04-11-2019 SUTURE,LIGA CLIP SM LT-100 FDA Start: 04-11-2019 STENT,7X24 ACMI FDA Start: 07-06-2019 STENT,7X24 ACMI FDA Start: 07-06-2019 SUTURE,LIGA CLIP MED LT200 FDA Start: 08-01-2019 SUTURE,LIGA CLIP MED LT200 FDA Start: 08-01-2019 SUTURE,LIGA CLIP MED LT200 FDA Start: 08-01-2019 SUTURE,LIGA CLIP MED LT200 FDA Start: 08-01-2019 SUTURE,LIGA CLIP SM LT-100 FDA Start: 08-01-2019 SUTURE,LIGA CLIP SM LT-100 FDA Start: 08-01-2019 SUTURE,LIGA CLIP SM LT-100 FDA Start: 08-01-2019 SUTURE,LIGA CLIP SM LT-100 FDA Start: 08-01-2019 STENT,URETERAL 6 FR PIG 6X26 FDA Start: 05-15-2017 STENT,URETERAL 6 FR PIG 6X26 FDA Start: 05-15-2017 STENT,URETERAL 6 FR PIG 6X26 FDA Start: 09-25-2017 STENT,URETERAL 6 FR PIG 6X26 FDA Start: 09-25-2017 STENT,URETERAL 6 FR PIG 6X26 FDA Start: 02-10-2018 STENT,URETERAL 6 FR PIG 6X26 FDA Start: 02-10-2018 SUTURE,LIGA CLIP MED LT200 FDA Start: 04-11-2019 SUTURE,LIGA CLIP MED LT200 FDA Start: 04-11-2019 SUTURE,LIGA CLIP SM LT-100 FDA Start: 04-11-2019 SUTURE,LIGA CLIP SM LT-100 FDA Start: 04-11-2019 SUTURE,LIGA CLIP SM LT-100 FDA Start: 04-11-2019 SUTURE,LIGA CLIP SM LT-100 FDA Start: 04-11-2019 STENT,7X24 ACMI FDA Start: 07-06-2019 STENT,7X24 ACMI FDA Start: 07-06-2019 SUTURE,LIGA CLIP MED LT200 FDA Start: 08-01-2019 SUTURE,LIGA CLIP MED LT200 FDA Start: 08-01-2019 SUTURE,LIGA CLIP MED LT200 FDA Start: 08-01-2019 SUTURE,LIGA CLIP MED LT200 FDA Start: 08-01-2019 SUTURE,LIGA CLIP SM LT-100 FDA Start: 08-01-2019 SUTURE,LIGA CLIP SM LT-100 FDA Start: 08-01-2019 SUTURE,LIGA CLIP SM LT-100 FDA Start: 08-01-2019 SUTURE,LIGA CLIP SM LT-100 FDA Start: 08-01-2019 STENT,URETERAL 6 FR PIG 6X26 FDA Start: 05-15-2017 STENT,URETERAL 6 FR PIG 6X26 FDA Start: 05-15-2017 STENT,URETERAL 6 FR PIG 6X26 FDA Start: 09-25-2017 STENT,URETERAL 6 FR PIG 6X26 FDA Start: 09-25-2017 STENT,URETERAL 6 FR PIG 6X26 FDA Start: 02-10-2018 STENT,URETERAL 6 FR PIG 6X26 FDA Start: 02-10-2018 SUTURE,LIGA CLIP MED LT200 FDA Start: 04-11-2019 SUTURE,LIGA CLIP MED LT200 FDA Start: 04-11-2019 SUTURE,LIGA CLIP SM LT-100 FDA Start: 04-11-2019 SUTURE,LIGA CLIP SM LT-100 FDA Start: 04-11-2019 SUTURE,LIGA CLIP SM LT-100 FDA Start: 04-11-2019 SUTURE,LIGA CLIP SM LT-100 FDA Start: 04-11-2019 STENT,7X24 ACMI FDA Start: 07-06-2019 STENT,7X24 ACMI FDA Start: 07-06-2019 SUTURE,LIGA CLIP MED LT200 FDA Start: 08-01-2019 SUTURE,LIGA CLIP MED LT200 FDA Start: 08-01-2019 SUTURE,LIGA CLIP MED LT200 FDA Start: 08-01-2019 SUTURE,LIGA CLIP MED LT200 FDA Start: 08-01-2019 SUTURE,LIGA CLIP SM LT-100 FDA Start: 08-01-2019 SUTURE,LIGA CLIP SM LT-100 FDA Start: 08-01-2019 SUTURE,LIGA CLIP SM LT-100 FDA Start: 08-01-2019 SUTURE,LIGA CLIP SM LT-100 FDA Start: 08-01-2019 STENT,URETERAL 6 FR PIG 6X26 FDA Start: 05-15-2017 STENT,URETERAL 6 FR PIG 6X26 FDA Start: 05-15-2017 STENT,URETERAL 6 FR PIG 6X26 FDA Start: 09-25-2017 STENT,URETERAL 6 FR PIG 6X26 FDA Start: 09-25-2017 STENT,URETERAL 6 FR PIG 6X26 FDA Start: 02-10-2018 STENT,URETERAL 6 FR PIG 6X26 FDA Start: 02-10-2018 SUTURE,LIGA CLIP MED LT200 FDA Start: 04-11-2019 SUTURE,LIGA CLIP MED LT200 FDA Start: 04-11-2019 SUTURE,LIGA CLIP SM LT-100 FDA Start: 04-11-2019 SUTURE,LIGA CLIP SM LT-100 FDA Start: 04-11-2019 SUTURE,LIGA CLIP SM LT-100 FDA Start: 04-11-2019 SUTURE,LIGA CLIP SM LT-100 FDA Start: 04-11-2019 STENT,7X24 ACMI FDA Start: 07-06-2019 STENT,7X24 ACMI FDA Start: 07-06-2019 SUTURE,LIGA CLIP MED LT200 FDA Start: 08-01-2019 SUTURE,LIGA CLIP MED LT200 FDA Start: 08-01-2019 SUTURE,LIGA CLIP MED LT200 FDA Start: 08-01-2019 SUTURE,LIGA CLIP MED LT200 FDA Start: 08-01-2019 SUTURE,LIGA CLIP SM LT-100 FDA Start: 08-01-2019 SUTURE,LIGA CLIP SM LT-100 FDA Start: 08-01-2019 SUTURE,LIGA CLIP SM LT-100 FDA Start: 08-01-2019 SUTURE,LIGA CLIP SM LT-100 FDA Start: 08-01-2019 STENT,URETERAL 6 FR PIG 6X26 FDA Start: 05-15-2017 STENT,URETERAL 6 FR PIG 6X26 FDA Start: 05-15-2017 STENT,URETERAL 6 FR PIG 6X26 FDA Start: 09-25-2017 STENT,URETERAL 6 FR PIG 6X26 FDA Start: 09-25-2017 STENT,URETERAL 6 FR PIG 6X26 FDA Start: 02-10-2018 STENT,URETERAL 6 FR PIG 6X26 FDA Start: 02-10-2018 SUTURE,LIGA CLIP MED LT200 FDA Start: 04-11-2019 SUTURE,LIGA CLIP MED LT200 FDA Start: 04-11-2019 SUTURE,LIGA CLIP SM LT-100 FDA Start: 04-11-2019 SUTURE,LIGA CLIP SM LT-100 FDA Start: 04-11-2019 SUTURE,LIGA CLIP SM LT-100 FDA Start: 04-11-2019 SUTURE,LIGA CLIP SM LT-100 FDA Start: 04-11-2019 STENT,7X24 ACMI FDA Start: 07-06-2019 STENT,7X24 ACMI FDA Start: 07-06-2019 SUTURE,LIGA CLIP MED LT200 FDA Start: 08-01-2019 SUTURE,LIGA CLIP MED LT200 FDA Start: 08-01-2019 SUTURE,LIGA CLIP MED LT200 FDA Start: 08-01-2019 SUTURE,LIGA CLIP MED LT200 FDA Start: 08-01-2019 SUTURE,LIGA CLIP SM LT-100 FDA Start: 08-01-2019 SUTURE,LIGA CLIP SM LT-100 FDA Start: 08-01-2019 SUTURE,LIGA CLIP SM LT-100 FDA Start: 08-01-2019 SUTURE,LIGA CLIP SM LT-100 FDA Start: 08-01-2019 STENT,URETERAL 6 FR PIG 6X26 FDA Start: 05-15-2017 STENT,URETERAL 6 FR PIG 6X26 FDA Start: 05-15-2017 STENT,URETERAL 6 FR PIG 6X26 FDA Start: 09-25-2017 STENT,URETERAL 6 FR PIG 6X26 FDA Start: 09-25-2017 STENT,URETERAL 6 FR PIG 6X26 FDA Start: 02-10-2018 STENT,URETERAL 6 FR PIG 6X26 FDA Start: 02-10-2018 SUTURE,LIGA CLIP MED LT200 FDA Start: 04-11-2019 SUTURE,LIGA CLIP MED LT200 FDA Start: 04-11-2019 SUTURE,LIGA CLIP SM LT-100 FDA Start: 04-11-2019 SUTURE,LIGA CLIP SM LT-100 FDA Start: 04-11-2019 SUTURE,LIGA CLIP SM LT-100 FDA Start: 04-11-2019 SUTURE,LIGA CLIP SM LT-100 FDA Start: 04-11-2019 STENT,7X24 ACMI FDA Start: 07-06-2019 STENT,7X24 ACMI FDA Start: 07-06-2019 SUTURE,LIGA CLIP MED LT200 FDA Start: 08-01-2019 SUTURE,LIGA CLIP MED LT200 FDA Start: 08-01-2019 SUTURE,LIGA CLIP MED LT200 FDA Start: 08-01-2019 SUTURE,LIGA CLIP MED LT200 FDA Start: 08-01-2019 SUTURE,LIGA CLIP SM LT-100 FDA Start: 08-01-2019 SUTURE,LIGA CLIP SM LT-100 FDA Start: 08-01-2019 SUTURE,LIGA CLIP SM LT-100 FDA Start: 08-01-2019 SUTURE,LIGA CLIP SM LT-100 FDA Start: 08-01-2019 STENT,URETERAL 6 FR PIG 6X26 FDA Start: 05-15-2017 STENT,URETERAL 6 FR PIG 6X26 FDA Start: 05-15-2017 STENT,URETERAL 6 FR PIG 6X26 FDA Start: 09-25-2017 STENT,URETERAL 6 FR PIG 6X26 FDA Start: 09-25-2017 STENT,URETERAL 6 FR PIG 6X26 FDA Start: 02-10-2018 STENT,URETERAL 6 FR PIG 6X26 FDA Start: 02-10-2018 SUTURE,LIGA CLIP MED LT200 FDA Start: 04-11-2019 SUTURE,LIGA CLIP MED LT200 FDA Start: 04-11-2019 SUTURE,LIGA CLIP SM LT-100 FDA Start: 04-11-2019 SUTURE,LIGA CLIP SM LT-100 FDA Start: 04-11-2019 SUTURE,LIGA CLIP SM LT-100 FDA Start: 04-11-2019 SUTURE,LIGA CLIP SM LT-100 FDA Start: 04-11-2019 STENT,7X24 ACMI FDA Start: 07-06-2019 STENT,7X24 ACMI FDA Start: 07-06-2019 SUTURE,LIGA CLIP MED LT200 FDA Start: 08-01-2019 SUTURE,LIGA CLIP MED LT200 FDA Start: 08-01-2019 SUTURE,LIGA CLIP MED LT200 FDA Start: 08-01-2019 SUTURE,LIGA CLIP MED LT200 FDA Start: 08-01-2019 SUTURE,LIGA CLIP SM LT-100 FDA Start: 08-01-2019 SUTURE,LIGA CLIP SM LT-100 FDA Start: 08-01-2019 SUTURE,LIGA CLIP SM LT-100 FDA Start: 08-01-2019 SUTURE,LIGA CLIP SM LT-100 FDA Start: 08-01-2019 STENT,URETERAL 6 FR PIG 6X26 FDA Start: 05-15-2017 STENT,URETERAL 6 FR PIG 6X26 FDA Start: 05-15-2017 STENT,URETERAL 6 FR PIG 6X26 FDA Start: 09-25-2017 STENT,URETERAL 6 FR PIG 6X26 FDA Start: 09-25-2017 STENT,URETERAL 6 FR PIG 6X26 FDA Start: 02-10-2018 STENT,URETERAL 6 FR PIG 6X26 FDA Start: 02-10-2018 SUTURE,LIGA CLIP MED LT200 FDA Start: 04-11-2019 SUTURE,LIGA CLIP MED LT200 FDA Start: 04-11-2019 SUTURE,LIGA CLIP SM LT-100 FDA Start: 04-11-2019 SUTURE,LIGA CLIP SM LT-100 FDA Start: 04-11-2019 SUTURE,LIGA CLIP SM LT-100 FDA Start: 04-11-2019 SUTURE,LIGA CLIP SM LT-100 FDA Start: 04-11-2019 STENT,7X24 ACMI FDA Start: 07-06-2019 STENT,7X24 ACMI FDA Start: 07-06-2019 SUTURE,LIGA CLIP MED LT200 FDA Start: 08-01-2019 SUTURE,LIGA CLIP MED LT200 FDA Start: 08-01-2019 SUTURE,LIGA CLIP MED LT200 FDA Start: 08-01-2019 SUTURE,LIGA CLIP MED LT200 FDA Start: 08-01-2019 SUTURE,LIGA CLIP SM LT-100 FDA Start: 08-01-2019 SUTURE,LIGA CLIP SM LT-100 FDA Start: 08-01-2019 SUTURE,LIGA CLIP SM LT-100 FDA Start: 08-01-2019 SUTURE,LIGA CLIP SM LT-100 FDA Start: 08-01-2019 STENT,URETERAL 6 FR PIG 6X26 FDA Start: 05-15-2017 STENT,URETERAL 6 FR PIG 6X26 FDA Start: 05-15-2017 STENT,URETERAL 6 FR PIG 6X26 FDA Start: 09-25-2017 STENT,URETERAL 6 FR PIG 6X26 FDA Start: 09-25-2017 STENT,URETERAL 6 FR PIG 6X26 FDA Start: 02-10-2018 STENT,URETERAL 6 FR PIG 6X26 FDA Start: 02-10-2018 SUTURE,LIGA CLIP MED LT200 FDA Start: 04-11-2019 SUTURE,LIGA CLIP MED LT200 FDA Start: 04-11-2019 SUTURE,LIGA CLIP SM LT-100 FDA Start: 04-11-2019 SUTURE,LIGA CLIP SM LT-100 FDA Start: 04-11-2019 SUTURE,LIGA CLIP SM LT-100 FDA Start: 04-11-2019 SUTURE,LIGA CLIP SM LT-100 FDA Start: 04-11-2019 STENT,7X24 ACMI FDA Start: 07-06-2019 STENT,7X24 ACMI FDA Start: 07-06-2019 SUTURE,LIGA CLIP MED LT200 FDA Start: 08-01-2019 SUTURE,LIGA CLIP MED LT200 FDA Start: 08-01-2019 SUTURE,LIGA CLIP MED LT200 FDA Start: 08-01-2019 SUTURE,LIGA CLIP MED LT200 FDA Start: 08-01-2019 SUTURE,LIGA CLIP SM LT-100 FDA Start: 08-01-2019 SUTURE,LIGA CLIP SM LT-100 FDA Start: 08-01-2019 SUTURE,LIGA CLIP SM LT-100 FDA Start: 08-01-2019 SUTURE,LIGA CLIP SM LT-100 FDA Start: 08-01-2019 STENT,URETERAL 6 FR PIG 6X26 FDA Start: 05-15-2017 STENT,URETERAL 6 FR PIG 6X26 FDA Start: 05-15-2017 STENT,URETERAL 6 FR PIG 6X26 FDA Start: 09-25-2017 STENT,URETERAL 6 FR PIG 6X26 FDA Start: 09-25-2017 STENT,URETERAL 6 FR PIG 6X26 FDA Start: 02-10-2018 STENT,URETERAL 6 FR PIG 6X26 FDA Start: 02-10-2018 SUTURE,LIGA CLIP MED LT200 FDA Start: 04-11-2019 SUTURE,LIGA CLIP MED LT200 FDA Start: 04-11-2019 SUTURE,LIGA CLIP SM LT-100 FDA Start: 04-11-2019 SUTURE,LIGA CLIP SM LT-100 FDA Start: 04-11-2019 SUTURE,LIGA CLIP SM LT-100 FDA Start: 04-11-2019 SUTURE,LIGA CLIP SM LT-100 FDA Start: 04-11-2019 STENT,7X24 ACMI FDA Start: 07-06-2019 STENT,7X24 ACMI FDA Start: 07-06-2019 SUTURE,LIGA CLIP MED LT200 FDA Start: 08-01-2019 SUTURE,LIGA CLIP MED LT200 FDA Start: 08-01-2019 SUTURE,LIGA CLIP MED LT200 FDA Start: 08-01-2019 SUTURE,LIGA CLIP MED LT200 FDA Start: 08-01-2019 SUTURE,LIGA CLIP SM LT-100 FDA Start: 08-01-2019 SUTURE,LIGA CLIP SM LT-100 FDA Start: 08-01-2019 SUTURE,LIGA CLIP SM LT-100 FDA Start: 08-01-2019 SUTURE,LIGA CLIP SM LT-100 FDA Start: 08-01-2019 STENT,URETERAL 6 FR PIG 6X26 FDA Start: 05-15-2017 STENT,URETERAL 6 FR PIG 6X26 FDA Start: 05-15-2017 STENT,URETERAL 6 FR PIG 6X26 FDA Start: 09-25-2017 STENT,URETERAL 6 FR PIG 6X26 FDA Start: 09-25-2017 STENT,URETERAL 6 FR PIG 6X26 FDA Start: 02-10-2018 STENT,URETERAL 6 FR PIG 6X26 FDA Start: 02-10-2018 SUTURE,LIGA CLIP MED LT200 FDA Start: 04-11-2019 SUTURE,LIGA CLIP MED LT200 FDA Start: 04-11-2019 SUTURE,LIGA CLIP SM LT-100 FDA Start: 04-11-2019 SUTURE,LIGA CLIP SM LT-100 FDA Start: 04-11-2019 SUTURE,LIGA CLIP SM LT-100 FDA Start: 04-11-2019 SUTURE,LIGA CLIP SM LT-100 FDA Start: 04-11-2019 STENT,7X24 ACMI FDA Start: 07-06-2019 STENT,7X24 ACMI FDA Start: 07-06-2019 SUTURE,LIGA CLIP MED LT200 FDA Start: 08-01-2019 SUTURE,LIGA CLIP MED LT200 FDA Start: 08-01-2019 SUTURE,LIGA CLIP MED LT200 FDA Start: 08-01-2019 SUTURE,LIGA CLIP MED LT200 FDA Start: 08-01-2019 SUTURE,LIGA CLIP SM LT-100 FDA Start: 08-01-2019 SUTURE,LIGA CLIP SM LT-100 FDA Start: 08-01-2019 SUTURE,LIGA CLIP SM LT-100 FDA Start: 08-01-2019 SUTURE,LIGA CLIP SM LT-100 FDA Start: 08-01-2019 STENT,URETERAL 6 FR PIG 6X26 FDA Start: 05-15-2017 STENT,URETERAL 6 FR PIG 6X26 FDA Start: 05-15-2017 STENT,URETERAL 6 FR PIG 6X26 FDA Start: 09-25-2017 STENT,URETERAL 6 FR PIG 6X26 FDA Start: 09-25-2017 STENT,URETERAL 6 FR PIG 6X26 FDA Start: 02-10-2018 STENT,URETERAL 6 FR PIG 6X26 FDA Start: 02-10-2018 SUTURE,LIGA CLIP MED LT200 FDA Start: 04-11-2019 SUTURE,LIGA CLIP MED LT200 FDA Start: 04-11-2019 SUTURE,LIGA CLIP SM LT-100 FDA Start: 04-11-2019 SUTURE,LIGA CLIP SM LT-100 FDA Start: 04-11-2019 SUTURE,LIGA CLIP SM LT-100 FDA Start: 04-11-2019 SUTURE,LIGA CLIP SM LT-100 FDA Start: 04-11-2019 STENT,7X24 ACMI FDA Start: 07-06-2019 STENT,7X24 ACMI FDA Start: 07-06-2019 SUTURE,LIGA CLIP MED LT200 FDA Start: 08-01-2019 SUTURE,LIGA CLIP MED LT200 FDA Start: 08-01-2019 SUTURE,LIGA CLIP MED LT200 FDA Start: 08-01-2019 SUTURE,LIGA CLIP MED LT200 FDA Start: 08-01-2019 SUTURE,LIGA CLIP SM LT-100 FDA Start: 08-01-2019 SUTURE,LIGA CLIP SM LT-100 FDA Start: 08-01-2019 SUTURE,LIGA CLIP SM LT-100 FDA Start: 08-01-2019 SUTURE,LIGA CLIP SM LT-100 FDA Start: 08-01-2019 STENT,URETERAL 6 FR PIG 6X26 FDA Start: 05-15-2017 STENT,URETERAL 6 FR PIG 6X26 FDA Start: 05-15-2017 STENT,URETERAL 6 FR PIG 6X26 FDA Start: 09-25-2017 STENT,URETERAL 6 FR PIG 6X26 FDA Start: 09-25-2017 STENT,URETERAL 6 FR PIG 6X26 FDA Start: 02-10-2018 STENT,URETERAL 6 FR PIG 6X26 FDA Start: 02-10-2018 SUTURE,LIGA CLIP MED LT200 FDA Start: 04-11-2019 SUTURE,LIGA CLIP MED LT200 FDA Start: 04-11-2019 SUTURE,LIGA CLIP SM LT-100 FDA Start: 04-11-2019 SUTURE,LIGA CLIP SM LT-100 FDA Start: 04-11-2019 SUTURE,LIGA CLIP SM LT-100 FDA Start: 04-11-2019 SUTURE,LIGA CLIP SM LT-100 FDA Start: 04-11-2019 STENT,7X24 ACMI FDA Start: 07-06-2019 STENT,7X24 ACMI FDA Start: 07-06-2019 SUTURE,LIGA CLIP MED LT200 FDA Start: 08-01-2019 SUTURE,LIGA CLIP MED LT200 FDA Start: 08-01-2019 SUTURE,LIGA CLIP MED LT200 FDA Start: 08-01-2019 SUTURE,LIGA CLIP MED LT200 FDA Start: 08-01-2019 SUTURE,LIGA CLIP SM LT-100 FDA Start: 08-01-2019 SUTURE,LIGA CLIP SM LT-100 FDA Start: 08-01-2019 SUTURE,LIGA CLIP SM LT-100 FDA Start: 08-01-2019 SUTURE,LIGA CLIP SM LT-100 FDA Start: 08-01-2019 Goals Date Patient Goal Desired Activity /State Functional Status Date Assessment Result Facility 08-14-2021 Functional status Ambulates [facility] Work Phone: Mental Status Date Assessment Result Facility 08-27-2023 Cognitive function Voice/Name [facility] Work Phone: 05-08-2023 Cognitive function Voice/Name [facility] Work Phone: 01-30-2023 Cognitive function Voice/Name [facility] Work Phone: 09-26-2022 Cognitive function Level Of Cons ciousness Awake;Appropriate [facility] Work Phone: 09-26-2022 Cognitive function Patient Orien tation Person;Place;Time [facility] Work Phone: 05-08-2022 Cognitive function Voice/Name [facility] Work Phone: 02-13-2022 Cognitive function Voice/Name [facility] Work Phone: 11-14-2021 Cognitive function Voice/Name [facility] Work Phone: 08-14-2021 Cognitive function Voice/Name [facility] Work Phone: Clinical Notes 10-09-2008 to 08-27-2023 Note Date & Type Note Facility 08-27-2023 Discharge summary Note Date/Time August 27, 2023 8:05am [facility] Medical Records Department [address] [place] [address] Instructions for Home/Discharge Instructions 08/27/23 0804 MR#: [id number] Acct: [id number] Name: ERNESTO KATZ Rep #:[id number] : 1940 82 From: Melissa Collier PCP: Dr. Brett Flores, DO Status:[facility] [place] [place] Discharge Instructions Diet Discharge Diet: No restrictions Activity Discharge Activity: Return to Normal Activity Dressing / Incision Call your doctor if you observe: Fever of 101 or Higher, Inability to urinate and Inability to have a bowel movement Follow Up Care Please Follow Up With: Melissa Rivas MD When: The office will call the patient to make arrangements. Test Results: Test results from this visit will be discussed in further detail at your follow-up appointment, if applicable. Discharge Plan Admission Attending Provider: Melissa Rivas Primary Care Provider: Brett Flores Discharge Orders/Prescriptions Prescriptions: Continued aspirin 81 MG tablet,chewable 81 mg PO DAILY Patient Comments: LAST DOSE 5 DAYS PRIOR, 02/09/22, for surgery on 02/13/22 ferrous sulfate 325 MG tablet 325 mg PO DAILY acetaminophen 650 MG tablet extended release 1,300 mg PO BID amiodarone 100 MG tablet 100 mg PO DAILY levothyroxine 75 mcg Capsule 75 mcg PO DAILY ascorbic acid (vitamin C) 500 mg Tablet 500 mg PO DAILY Velphoro 500 mg tablet,chewable 500 mg PO BID metoprolol tartrate 25 mg tablet 25 mg PO BID Qty: 180 3RF Discontinued ciprofloxacin HCl 250 mg tablet 250 mg PO BID Referrals / Follow Up: Brett Flores DO [Primary Care Provider] - Disposition Disposition (needs filled in before D/C Order can be placed): Home, Self Care 08/27/23 0912<Electronically signed by Melissa Rivas MD>Melissa Rivas MD CC: Dr. Brett Flores, DO ~ Signed [facility] Work Phone: 1(523) 885-818112-01-2023 Procedure [facility] 05-08-2023 Discharge summary Author Melissa Rivas [facility] May 08, 2023 10:51am Note Date/Time May 08, 2023 1 0:48am [facility] Medical Records Department [address] [place] [address] Instructions for Home/Discharge Instructions 05/08/23 1048 MR#: [id number] Acct: [id number] Name: ERNESTO KATZ Rep #:[id number] : 1940 82 From: Melissa Collier PCP: Dr. Brett Flores DO Status:[facility] [place] [place] Discharge Instructions Diet Discharge Diet: No restrictions Activity Discharge Activity: Return to Normal Activity Dressing / Incision Call your doctor if you observe: Fever of 101 or Higher, Inability to urinate and Inability to have a bowel movement Follow Up Care Please Follow Up With: Melissa Rivas MD When: the office will call her for follow up instructions Test Results: Test results from this visit will be discussed in further detail at your follow- up appointment, if applicable. Discharge Plan Admission Attending Provider: Melissa Rivas Primary Care Provider: Brett Flores Discharge Orders/Prescriptions Prescriptions: New oxycodone-acetaminophen [Percocet] 5-325 mg tablet 1 tab PO Q8H PRN (Reason: pain) 1 Days Qty: 3 0RF nitrofurantoin monohyd/m-cryst [Macrobid] 100 mg capsule 100 mg PO BID Qty: 10 0RF Rx Instructions: must administer with a meal/food Continued aspirin 81 MG tablet,chewable 81 mg PO DAILY Patient Comments: LAST DOSE 5 DAYS PRIOR, 02/09/22, for surgery on 02/13/22 ferrous sulfate 325 MG tablet 325 mg PO DAILY acetaminophen 650 MG tablet extended release 1,300 mg PO BID amiodarone 100 MG tablet 100 mg PO DAILY levothyroxine 75 mcg Capsule 75 mcg PO DAILY ascorbic acid (vitamin C) 500 mg Tablet 500 mg PO DAILY sevelamer carbonate 800 mg tablet 800 mg PO DAILY Patient Comments: TAKE 1 TABLET BY MOUTH ONCE A DAY WITH THE LARGEST MEAL OF THE DAY Velphoro 500 mg tablet,chewable 500 mg PO BID metoprolol tartrate 25 mg tablet 25 mg PO BID Qty: 180 3RF Referrals / Follow Up: Brett Flores DO [Primary Care Provider] - Disposition Disposition (needs filled in before D/C Order can be placed): Home, Self Care 05/08/23 1051<Electronically signed by Melissa Rivas MD>Melissa Rivas MD CC: Dr. Brett Flores DO ~ Signed [facility] Work Phone: 1(115) 543-704008-25-2023 Procedure [facility] 09-26-2022 Procedure [facility]05-04-2009 Evaluation note* Diagnosis Onset Date Resolution Status Essential (primary) hypertension chronic HLD (hyperlipidemia) chronic Paroxysmal atrial fibrillation chronic History of coronary artery stent placement October 09 09 resolved [facility] Work Phone: Discharge summary Author Dr. Rivas [facility] September 26, 2022 8:16am Note Date/Time September 26, 2022 8:1 5am [facility] Medical Records Department [address] [place] [address] Instructions for Home/Discharge Instructions 09/26/22 0815 MR#: [id number] Acct: [id number] Name: ERNESTO KATZ Rep #:[id number] : 1940 81 From: Melissa Collier PCP: Dr. Brett Flores DO Status:[facility] [place] [place] Discharge Instructions Diet Discharge Diet: No restrictions Activity Discharge Activity: Return to Normal Activity Dressing / Incision Call your doctor if you observe: Fever of 101 or Higher, Inability to urinate and Inability to have a bowel movement Follow Up Care Please Follow Up With: Melissa Rivas MD When: Call office for appointment Test Results: Test results from this visit will be discussed in further detail at your follow- up appointment, if applicable. Discharge Plan Admission Attending Provider: Melissa Rivas Primary Care Provider: Brett Flores Discharge Orders/Prescriptions Prescriptions: New nitrofurantoin monohyd/m-cryst [Macrobid] 100 mg capsule 100 mg PO BID Qty: 6 0RF Rx Instructions: must administer with a meal/food Continued aspirin 81 MG tablet,chewable 81 mg PO DAILY Label Comments: LAST DOSE 5 DAYS PRIOR, 02/09/22, for surgery on 02/13/22 ferrous sulfate 325 MG tablet 325 mg PO BID acetaminophen 650 MG tablet extended release 1,300 mg PO BID calcitriol 0.25 mcg capsule 0.25 mcg PO TUTH amiodarone 100 MG tablet 100 mg PO DAILY levothyroxine 75 mcg Capsule 75 mcg PO DAILY ascorbic acid (vitamin C) 500 mg Tablet 500 mg PO DAILY oxycodone-acetaminophen [Percocet] 5-325 mg tablet 1 tab PO Q8H PRN (Reason: pain) 3 Days Qty: 3 0RF metoprolol tartrate 25 mg tablet 25 mg PO BID Qty: 180 3RF Referrals / Follow Up: Brett Flores DO [Primary Care Provider] - Disposition Disposition (needs filled in before D/C Order can be placed): Home, Self Care 09/26/22 0816<Electronically signed by Melissa Rivas MD>Melissa Rivas MD CC: Dr. Brett Flores DO ~ Signed [facility] Work Phone: Discharge summary Author Melissa Rivas [facility] January 30, 2023 12:01pm Note Date/Time January 30, 2023 11 :31am [facility] Medical Records Department [address] [place] [address] Instructions for Home/Discharge Instructions 01/30/23 1131 MR#: [id number] Acct: [id number] Name: GIANNAERNESTO Marshall Rep #:[id number] : 1940 82 From: Melissa Collier PCP: Dr. Brett Flores DO Status:[facility] Discharge Instructions Diet Discharge Diet: No restrictions Activity Discharge Activity: Return to Normal Activity Dressing / Incision Call your doctor if you observe: Fever of 101 or Higher, Inability to urinate and Inability to have a bowel movement Follow Up Care Please Follow Up With: Melissa Rivas MD When: We will make arrangements for routine ureteral stent changes in 3 months. Test Results: Test results from this visit will be discussed in further detail at your follow- up appointment, if applicable. Discharge Plan Admission Attending Provider: Melissa Rivas Primary Care Provider: Brett Flores Discharge Orders/Prescriptions Prescriptions: New nitrofurantoin monohyd/m-cryst [Macrobid] 100 mg capsule 100 mg PO BID Qty: 10 0RF Rx Instructions: must administer with a meal/food Continued aspirin 81 MG tablet,chewable 81 mg PO DAILY Patient Comments: LAST DOSE 5 DAYS PRIOR, 02/09/22, for surgery on 02/13/22 ferrous sulfate 325 MG tablet 325 mg PO DAILY acetaminophen 650 MG tablet extended release 1,300 mg PO BID amiodarone 100 MG tablet 100 mg PO DAILY levothyroxine 75 mcg Capsule 75 mcg PO DAILY ascorbic acid (vitamin C) 500 mg Tablet 500 mg PO DAILY oxycodone-acetaminophen [Percocet] 5-325 mg tablet 1 tab PO Q8H PRN (Reason: pain) 3 Days Qty: 3 0RF sevelamer carbonate 800 mg tablet 800 mg PO DAILY Patient Comments: TAKE 1 TABLET BY MOUTH ONCE A DAY WITH THE LARGEST MEAL OF THE DAY metoprolol tartrate 25 mg tablet 25 mg PO BID Qty: 180 3RF Referrals / Follow Up: Brett Flores DO [Primary Care Provider] - Disposition Disposition (needs filled in before D/C Order can be placed): Home, Self Care 01/30/23 1201<Electronically signed by Melissa Rivas MD>Melissa Rivas MD CC: Dr. Brett Flores DO ~ Signed [facility] Work Phone: Evaluation note* Diagnosis Onset Date Resolution Status Hydronephrosis resolved Hydronephrosis due to obstruction of ureter resolved Leukocytosis resolved Urinary tract infection reso lved Bilateral ureteral obstruction acute Chronic kidney disease, stage 5 chronic [facility] Work Phone: Evaluation note* Diagnosis Onset Date Resolution Status Bilateral ureteral obstruction acute Chronic kidney disease, stage 5 [facility] Work Phone: Evaluation noteNo assessment information available [facility] Work Phone: Hospital Discharge instructions Additional Instructions [facility] Additional Instructions [facility]?: [facility] Additional Instructions Implant Used?: Yes [facility] Work Phone: Chief Complaint and Reason for Visit Chief Complaint PYELONEPHRITIS PYELONEPHRITIS PYELONEPHRITIS PYELONEPHRITIS PYELONEPHRITIS PYELONEPHRITIS CYSTO BILAT STENT CHANGE Reason for Visit Hydronephrosis Hydronephrosis due to obstruction of ureter Leukocytosis Urinary tract infection Bilateral ureteral obstruction Chronic kidney disease, stage 5 Chief Complaint CYSTO BILAT STENT CH ALDAIR Reason for Visit Bilateral ureteral o bstruction Chronic kidney disease, stage 5 Chief Complaint CYSTO BILAT STENT CH ALDAIR BILAT STENT CHANGE Reason for Visit Bilateral ureteral o bstruction Chronic kidney disease, stage 5 Chief Complaint BILAT STENT CHANGE Amb Documentation est care, hasnt been seen since 2019 Reason for Visit Essential (primary) hypertension HLD (hyperlipidemia) Paroxysmal atrial fibrillation History of coronary artery stent placement Chief Complaint BILAT STENT CHANGE Amb Documentation est care, hasnt been seen since 2019 Paroxysmal atrial fibrillation Paroxysmal atrial fibrillation Reason for Visit Essential (primary) hypertension HLD (hyperlipidemia) Paroxysmal atrial fibrillation History of coronary artery stent placement Chief Complaint BILAT STENT CHANGE Amb Documentation est care, hasnt been seen since 2019 Paroxysmal atrial fibrillation Paroxysmal atrial fibrillation CYSTO BILAT STENT CHANGE Reason for Visit Essential (primary) hypertension HLD (hyperlipidemia) Paroxysmal atrial fibrillation History of coronary artery stent placement Chief Complaint BILAT STENT CHANGE Amb Documentation est care, hasnt been seen since 2019 Paroxysmal atrial fibrillation Paroxysmal atrial fibrillation CYSTO BILAT STENT CHANGE DUE AROUND DATE LISTED Reason for Visit Essential (primary) hypertension HLD (hyperlipidemia) Paroxysmal atrial fibrillation History of coronary artery stent placement Chief Complaint Paroxysmal atrial fi brillation Paroxysmal atrial fibrillation CYSTO BILAT STENT CHANGE DUE AROUND DATE LISTED E-ORDER DUE AROUND DATE LISTED PER ORDER Chief Complaint E-ORDER DUE AROUND DATE LISTED PER ORDER CYSTO BILATERAL STENT CHANGE Chief Complaint BILAT STENT CHANGE, CYSTO Chief Complaint BILAT STENT CHANGE, CYSTO Cysto,Insertion Stent Bilateral Chief Complaint Cysto,Insertion Sten t Bilateral LOW PLATELETS Cysto, Removal Stent, Insert Stent Family History No Family History Records Found Relationship Condition Age at Onset Recorded Date/T ambrosio mother Cerebrovascular accident (CVA) Unknown Hypertension Unknown Alcoholism Unknown Cardiac disease Unknown father Cardiac disease Unknown Advance Directives No Advanced Directives Records Found Advance Directive Response Recorded Date/ Time Advance Directives Yes January 18, 2019 9:48am Living Will No November 07, 2021 1 :36pm Power of It Application Development Manager No November 07, 2021 1:36pm Advance Directive Response Recorded Date/ Time Advance Directives Yes January 18, 2019 8:48am Living Will No November 07, 2021 1 2:36pm Power of It Application Development Manager No November 07, 2021 12:36pm Advance Directive Response Recorded Date/ Time Advance Directives Yes January 18, 2019 8:48am Living Will No April 30 10:12am Power of It Application Development Manager No April 30, 2022 10:12am Advance Directive Response Recorded Date/ Time Advance Directives Yes January 18, 2019 9:48am Living Will No September 19, 2022 2:18pm Power of It Application Development Manager No September 19 2:18pm Advance Directive Response Recorded Date/ Time Advance Directives Yes January 18, 2019 9:48am Living Will No January 23 10:13am Power of It Application Development Manager No January 23 023 10:13am Advance Directive Response Recorded Date/ Time Advance Directives Yes January 18, 2019 8:48am Living Will No April 29, 023 11:07am Power of It Application Development Manager No April 29, 2023 11:07am Advance Directive Response Recorded Date/ Time Advance Directives Yes January 18, 2019 9:48am Living Will No August 24, 2023 9:58am Power of It Application Development Manager No August 23 9:58am Summary Purpose Additional Source Comments Goals (unrecognized section and content) Goals may be documented in a n alternate section Care Teams (unrecognized sec tion and content) Team Status: Active Member Role Status Dates Dr. Brett Flores , DO Family Provider Active Dr. Brett Flores , DO Primary Care Provider Active Team Status: Active Member Role Status Dates Dr. Brett Flores , DO Primary Care Provider Active Dr. Shan Cason MD Referring Provider, Other Provide r Active Dr. Carlos Patel MD Attending Provider Active Team Status: Inactive Member Role Status Dates Dr. Brett Flores , DO Primary Care Provider Active Dr. Melissa Rivas MD Attending Provider, Referring P rovider Active Team Status: Inactive Member Role Status Dates Dr. Brett Flores , DO Primary Care Provider Active Dr. Ledy Barrientos DO Attending Provider, Referring P rovider Active Team Status: Inactive Member Role Status Dates Dr. Brett Flores , DO Primary Care Provider Active Dr. Shan Cason MD Attending Provider, Referring Pro vider Active Team Status: Active Member Role Status Dates Dr. Brett Flores , DO Primary Care Provider Active Dr. Ledy Barrientos , DO Attending Provider Active Team Status: Inactive Member Role Status Dates Dr. Brett Flores , DO Primary Care Provider Active Dr. Ledy Barrientos , DO Attending Provider Active Team Status: Active Member Role Status Dates Dr. Brett Flores , DO Primary Care Provider Active Dr. Ledy Barrientos , DO Attending Provider, Referring P rovider Active INFORMATION SOURCE (unrecogn ized section and content) DATE CREATED AUTHOR 11/23/2024 [facility] FOR RECORDS PERTAINING TO PATIENTS WHO ARE OR HAVE BEEN ENROLLED IN A CHEMICAL DEPENDENCY/SUBSTANCEABUSE PROGRAM, SOME INFORMATION MAY BE OMITTED. This clinical summary was aggregated from multiple sources. Caution should be exercised in using it in the provision of clinical care. This summary normalizes information from multiple sources, and as a consequence, information in this document may materially change the coding, format and clinical context of patient data. In addition, data may be omitted in some cases. CLINICAL DECISIONS SHOULD BE BASED ON THE PRIMARY CLINICAL RECORDS. [employer] provides no warranty or guarantee of the accuracy or completeness of information in this document.
[2024-11-24] MEDS: 0.9% Normal Saline (500mL Bag) 500 ML 15 ML IV (07:45)
--- NOTE | 2024-11-24 08:02 | PCM.PRE.AN2 ---
ASA Classification* ASA Classification ASA Classification: 4 (ESRD on dialysis, HTN, thyroid, paroxysmal Afib, anemia, left carotid stenosis ) Assessment & Plan Anesthesia* Anesthesia Assessment Anesthesia Assessment: Discussed sedation and/or anesthesia options, risks, benefits, and alternatives with patient/parents/legal guardian/POA. Questions invited. The patient/parents/legal guardian/POA seems to understand and agrees to proceed with anesthesia plan. Reviewed the physical assessment, medical history, allergy history and patient home medications list prior to surgery/procedure/anesthetic and documented any changes. Performed airway and anesthesia risk assessments. Anesthesia Type Anesthesia Type: General (Please be gentle with induction, have phenylephrine ready . Limit fluids) History Source History Obtained from:: Patient and Chart Anesthesia Focused Assessment* Temperature: 97.2 F Pulse Rate: 60 Blood Pressure: 129/50 Respiratory Rate: 18 Pulse Ox: 99 Oxygen Delivery Method: Room Air Airway Assessment Mouth opens: >3 cm Mallampati Score: II Teeth Condition: Intact and Missing Neck Range of motion (ROM): Full ROM Labs Anesthesia Preop lab: CBC WBC 10.2 K/mm3 (4.4-11.0) 11/21/24 12:14 11/21/24 RBC 3.18 M/mm3 (4.2-5.4) L 11/21/24 12:14 11/21/24 Hgb 11.2 g/dL (12.0-15.0) L 11/21/24 12:14 11/21/24 Hct 34.8 % (37-47) L 11/21/24 12:14 11/21/24 Plt Count 260 K/mm3 (150-450) 11/21/24 12:14 11/21/24 CHEMISTRY Potassium 4.6 mmol/L (3.3-5.1) 11/21/24 12:14 11/21/24 Sodium 136 mmol/L (133-145) 11/21/24 12:14 11/21/24 Magnesium 1.4 mg/dL (1.6-2.6) L 07/11/20 06:06 07/11/20 Phosphorus 3.5 mg/dL (2.5-4.9) 07/31/22 11:30 07/31/22 BUN 53 mg/dL (4-19) H 11/21/24 12:14 11/21/24 Creatinine 4.99 mg/dL (0.70-1.20) H 11/21/24 12:14 11/21/24 Glucose 89 mg/dL (70-99) 11/21/24 12:14 11/21/24 POC Glucose 139 mg/dL (70-110) H 01/23/17 20:52 01/23/17 TSH 1.74 uIU/mL (0.358-3.74) 08/12/21 05:38 08/12/21 COAG PT 15.7 SECONDS (11.7-14.9) H 08/12/21 05:38 08/12/21 Pre-Assessment Diagnosis/Proposed Procedure Planned Operative Procedure(s): CYSTO, BILATERAL STENT CHANGE Anesthesia History 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 When Was Last Pacemaker Check QUESTION #4 FULL TEXT: You/Your Family Experience fever (hyperthermia) with Anesthesia Last Oral Intake Last Oral intake: Last Oral Intake NPO since 06:00 11/24/24 07:28 Meds taken in AM with sips of Yes 11/24/24 07:28 water? Meds patient instructed to see medlist 11/24/24 07:28 take am of surgery PONV PONV - capital project engineer: PONV - capital project engineer Female Yes 11/17/24 11:22 HX of Motion Sickness No 11/17/24 11:22 HX of N/V After Surgery No 11/17/24 11:22 Non-Smoker Yes 11/17/24 11:22 Duration of Surgery greater Yes 11/17/24 11:22 than 60 minutes Number of Risk Factors 3 11/17/24 11:22 PONV Score Moderate Risk 11/17/24 11:22 Height & Weight Height & Weight: Anesthesia: Height & Weight Height 5 ft 3 in 11/24/24 07:28 Weight: 51.7 kg 11/24/24 07:28 Body Mass Index (BMI) 20.2 11/24/24 07:28 Respiratory Assessment Respiratory Assessment - capital project engineer: Respiratory Tract Infection Hx - capital project engineer Hx Respiratory Tract Infection No 11/17/24 11:22 STOP Sleep Apnea STOP Sleep Apnea - capital project engineer: STOP Sleep Apnea - capital project engineer Hx Hypertension Yes: CONTROLLED WITH MEDS 11/17/24 11:22 Hx Sleep Apnea No 11/17/24 11:22 CPAP No 07/04/24 15:12 BIPAP No 07/04/24 15:12 Do you snore loudly (louder No 11/17/24 11:22 than talking or can be heard Do you often feel tired/ No 11/17/24 11:22 fatigued/ sleepy during daytime? Has anyone observed you stop No 11/17/24 11:22 breathing during sleep? STOP Results Negative 11/17/24 11:22 QUESTION #5 FULL TEXT : Do you snore loudly (louder than talking or can be heard through closed doors)? Tobacco Use History Tobacco Use History - capital project engineer: Tobacco Use History - capital project engineer Tobacco Use Non-smoker 10/09/20 14:32 Smoking Status Never smoker 11/17/24 11:22 Hx Tobacco Use No 11/17/24 11:22 Years Smoking Packs Smoked per Day Smoking Cessation Date was within the last 15 years Hx Smoking Cessation Date Hx Smoking Cessation Counseling Hematologic Medial History Hematologic Hx - capital project engineer: Hematologic Medical Hx - collection manager Hx of Blood Transfusion No 11/17/24 11:22 Hx of Transfusion in last 3 No 11/17/24 11:22 Months Date of Last Transfusion (if within last 3 months) Ever experience any problems No 11/17/24 11:22 with transfusion(s)? Specify any problems Hx of Preganancy in last 3 No 11/17/24 11:22 Months Nurse Filling Out Transfusion [email or web address] 11/17/24 11:22 & Questions: Date: 11/17/24 11/17/24 11:22 Time: 11:23 11/17/24 11:22 Patient unable to answer at this time (ie. confused, unrespo /Reproduction History /Reproductive History - capital project engineer: /Reproductive Hx- capital project engineer Hx Now No 11/17/24 11:22 Gestational Age (in weeks): EDC: Hx Hx Para Hx Section SAB No 11/17/24 11:22 Active Medications Active Medications: Current Medications Generic Name Dose Route Start Last Admin Trade Name Shelby PRN Reason Stop Dose Admin Ciprofloxacin 200 mg in 100 mls @ 100 mls/hr 11/24/24 08:25 Cipro IV 11/24/24 09:24 PREOP ONE Sodium Chloride 500 mls @ 0 mls/hr 11/24/24 07:45 11/24/24 07:45 IV 15 mls/hr .Q0M SRIRAM Administration KVO PFSH Medical History (Updated 11/17/24 @ 11:27 by Maximo Leary) Heartburn Low iron Difficult intravenous access Cardiology follow-up encounter Bilateral ureteral obstruction Pyelonephritis Thyroid disease Ambulates with cane History of renal dialysis Easy bruising Wears glasses Anemia Post-menopausal Osteoarthritis Kidney disease Edema Chronic kidney disease Hematuria Abdominal pain Urinary tract infection Obstructive nephropathy Hyperparathyroidism due to renal insufficiency Vitamin deficiency Hypothyroidism 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 Paroxysmal atrial fibrillation Atherosclerosis of coronary artery of [place]' heart without angina pectoris Essential (primary) hypertension Stenosis of left carotid artery HLD (hyperlipidemia) Arthritis Hydronephrosis due to obstruction of ureter Normochromic normocytic anemia Acute pyelonephritis Home Medications ?Medication ?Instructions ?Recorded ?Last Taken ?Type aspirin 81 mg chewable tablet 81 mg PO DAILY heart health 05/01/16 11/20/24 History ferrous sulfate 325 mg (65 mg 325 mg PO DAILY supplement 01/11/19 07/13/24 History iron) tablet acetaminophen 650 mg 1,300 mg PO BID pain 04/05/19 07/14/24 History tablet,extended release amiodarone 100 mg tablet 100 mg PO DAILY heart 07/06/20 11/24/24 History ascorbic acid (vitamin C) 500 mg 500 mg PO DAILY supplement 01/08/21 07/13/24 History tablet sucroferric oxyhydroxide 500 mg 500 mg PO BID PHOSPHORUS BINDER 04/29/23 07/13/24 History chewable tablet (Velphoro) metoprolol tartrate 25 mg tablet 25 mg PO BID for blood pressure 01/28/24 11/24/24 Rx #180 TABLETS levothyroxine 75 mcg tablet 75 mcg PO DAILY 11/17/24 11/24/24 History (Synthroid) Allergy/AdvReac Type Severity Reaction Status Date / Time cephalexin Allergy TONGUE Verified 11/24/24 07:25 SWELLING AND PEELING LIPS lisinopril Allergy Hives Verified 11/24/24 07:25 Sulfa (Sulfonamide Allergy Hives Verified 11/24/24 07:25 Antibiotics) nitrofurantoin AdvReac Nausea/Vom/ Verified 11/24/24 07:25 Diarrhea Family History Mother CVA (cerebral vascular accident) Hypertension Alcoholism Heart disease Father Heart disease Surgical History Hx of cystoscopy Hx of appendectomy Hx of bilateral cataract extraction Hx of cystoscopy Hx of hysterectomy (~2016) history Left brachial AV fistula creation (04/11/19) History of left-sided carotid endarterectomy History of coronary artery stent placement (10/09/08) Hx of cataract surgery History of total abdominal hysterectomy and bilateral salpingo-oophorectomy History of ureter stent Social History Smoking Status: Never smoker alcohol intake: never substance use type: does not use Review of Systems (Anesthesia) ROS Narrative System reviewed and no additional complaints, except as documented. Physical Exam Narrative Pt has brusing on top right of head from fall after dialysis on Thursday. Did not go to ED, was monitored at dialysis for an hour and sent home. Const alert, oriented x3 and average body habitus Resp normal respiratory effort, normal air movement and clear to auscultation bilaterally Cardio regular rate, regular rhythm, no murmurs and diaphoretic
--- NOTE | 2024-11-24 08:07 | OP.PCM_ITS ---
Operative Report (Standard) Operative Information Date of Procedure: 11/24/24 Pre-Operative Diagnosis: Chronic bilateral ureteral obstruction Post-Operative Diagnosis: Same Surgery/Procedure Performed: Cystoscopy with bilateral ureteral stent change registered respiratory technician: No Type of Anesthesia: MAC RN Documented Start/Stop Times: Operation Date: 11/24/24 08:25 Case Time Into Pre-Op 11/24/24 07:06 Anesthesia Start 11/24/24 08:16 Into Room 11/24/24 08:16 Out of Pre-Op 11/24/24 08:17 Procedure Start 11/24/24 08:26 Procedure End 11/24/24 08:40 Anesthesia End 11/24/24 08:47 Out of Room 11/24/24 08:47 Into Recovery 11/24/24 08:48 Out of Recovery 11/24/24 09:02 Into Phase II Recovery 11/24/24 09:03 Out of Phase II 11/24/24 09:33 Procedure Start Time: 08:26 Procedure Stop Time: 08:40 Select all DRAINS/GRAFTS/IMPLANTS that apply: Drains Drain details: 6 Citizen Of [place] by 24 cm JJ stent x 2 Estimated Blood Loss: <5cc Specimen collected: No Description of surgery: The patient is an 83-year-old female who presents for her routine every 3-month bilateral ureteral stent change and cystoscopy. Informed consent was obtained. She was taken to the operating room and placed in a supine position on the operating room table. Anesthesia monitored the head, neck, airway, IV access and vital signs throughout the case. Once anesthesia was appropriately administered, she was placed into dorsolithotomy position was prepped and draped in usual sterile fashion. The cystoscope was inserted through the urethra under direct visualization into the urinary bladder. There was mucus and debris within the urine and this was flushed out. The right ureteral stent was then grasped and brought to the urethral meatus where it was backloaded with a 0.035 Glidewire. The Glidewire advanced into the renal pelvis and the stent was removed. The wire was then backloaded into the cystoscope using the pusher. A new 6 Citizen [place] 24 cm JJ stent was placed over the Glidewire and advanced into the renal pelvis with good positioning there as well as the urinary bladder. The same exact process was repeated on the patient's left side without difficulty. Fluoroscopic visualization confirmed good positioning of bilateral stents. Her bladder was emptied and the cystoscope was removed. She was awakened and taken to the recovery room in good condition. Surgical Findings: 6 Citizen [place] by 24 cm JJ stent x 2 Complications Complications: No Admit VTE Documentation VTE Present on Admission: Yes VTE Mechan Device Prophylaxis: SCD's VTE Pharm Prophylaxis ordered?: No Reason prophylaxis not ordered: Treatment Not Indicated
--- NOTE | 2024-11-24 08:09 | EX.PCM.DISCH ---
Discharge Instructions Diet Discharge Diet: No restrictions Activity Discharge Activity: Return to Normal Activity Dressing / Incision Call your doctor if you observe: Fever of 101 or Higher, Inability to urinate and Inability to have a bowel movement Follow Up Care Please Follow Up With: Melissa Riavs MD When: The office will call to schedule the next procedure. Test Results: Test results from this visit will be discussed in further detail at your follow-up appointment, if applicable. Discharge Plan Admission Attending Provider: Melissa Rivas Primary Care Provider: Brett Flores Instructions Print Language: Portuguese Discharge Orders/Prescriptions Prescriptions: Continued aspirin 81 MG tablet,chewable 81 mg PO DAILY ferrous sulfate 325 MG tablet 325 mg PO DAILY acetaminophen 650 MG tablet extended release 1,300 mg PO BID amiodarone 100 MG tablet 100 mg PO DAILY ascorbic acid (vitamin C) 500 mg Tablet 500 mg PO DAILY Velphoro 500 mg tablet,chewable 500 mg PO BID levothyroxine [Synthroid] 75 mcg tablet 75 mcg PO DAILY metoprolol tartrate 25 mg tablet 25 mg PO BID Qty: 180 3RF Other Ambulatory Orders: 12 Lead EKG (Routine) Timeframe: [id number] Location: None Selected Ordered By: Dr. Melissa Rivas Referrals / Follow Up: Brett Flores DO [Primary Care Provider] - Disposition Disposition (needs filled in before D/C Order can be placed): Home, Self Care
[2024-11-24] MEDS: Ciprofloxacin 200 MG/100 ML BAG 100 MG IV (08:18)
--- NOTE | 2024-11-24 08:51 | PCM.POST.ANE ---
Anesthesia: Postop Eval I Current Vital Signs Temperature: 97.5 F Pulse Rate: 58 Blood Pressure: 100/47 Respiratory Rate: 16 Pulse Ox: 96 Oxygen Delivery Method: Room Air Assessment Airway patent: Yes Spontaneous unlabored respirations: Yes Mental status: Awake nausea: No Vomiting: No Anesthesia Complication: No Fluid Hydration Crystalloid volume administer (ml): 150 Total IV fluid infused: 150 Progress Note Anesthesia document: Postop Eval 1 completed: Yes
--- NOTE | 2024-11-24 11:29 | POSTOPAN2_ITS ---
Anesthesia Postop Eval I Sum Postop Eval Completion status Anesthesia document: Postop Eval 1 completed: Yes Anesthesia Postop Eval I Summary Anesthesia Postop Eval I Summary: Anesthesia Postop Eval I: Assessment Summary Airway patent Yes 11/24/24 08:52 WILLOW MACHINE OPERATOR.JBOR Spontaneous unlabored Yes 11/24/24 08:52 WILLOW MACHINE OPERATOR.JBOR respirations Mental status Awake 11/24/24 08:52 WILLOW MACHINE OPERATOR.JBOR nausea No 11/24/24 08:52 WILLOW MACHINE OPERATOR.JBOR Vomiting No 11/24/24 08:52 WILLOW MACHINE OPERATOR.JBOR Anesthesia Postop Eval I: Fluid Summary Crystalloid volume administer 150 11/24/24 08:52 WILLOW MACHINE OPERATOR.JBOR (ml) Colloids volume administered ( ml) Blood Product volume administered (ml) Total IV fluid infused 150 11/24/24 08:52 WILLOW MACHINE OPERATOR.JBOR Anesthesia Postop Eval I: Summary Notes Anesthesia Complication No 11/24/24 08:52 WILLOW MACHINE OPERATOR.JBOR Anesthesia Complication Comment: Post-operative progress note Anesthesia: Postop Eval II Evaluation Mental status: Awake Pain Level: 0 nausea: No Vomiting: No Complications Anesthesia Complication: No
--- NOTE | 2024-11-24 11:29 | PCM.POSTANE2 ---
Anesthesia Postop Eval I Sum Postop Eval Completion status Anesthesia document: Postop Eval 1 completed: Yes Anesthesia Postop Eval I Summary Anesthesia Postop Eval I Summary: Anesthesia Postop Eval I: Assessment Summary Airway patent Yes 11/24/24 08:52 SAND TECHNOLOGIST.JBOR Spontaneous unlabored Yes 11/24/24 08:52 SAND TECHNOLOGIST.JBOR respirations Mental status Awake 11/24/24 08:52 SAND TECHNOLOGIST.JBOR nausea No 11/24/24 08:52 SAND TECHNOLOGIST.JBOR Vomiting No 11/24/24 08:52 SAND TECHNOLOGIST.JBOR Anesthesia Postop Eval I: Fluid Summary Crystalloid volume administer 150 11/24/24 08:52 SAND TECHNOLOGIST.JBOR (ml) Colloids volume administered ( ml) Blood Product volume administered (ml) Total IV fluid infused 150 11/24/24 08:52 SAND TECHNOLOGIST.JBOR Anesthesia Postop Eval I: Summary Notes Anesthesia Complication No 11/24/24 08:52 SAND TECHNOLOGIST.JBOR Anesthesia Complication Comment: Post-operative progress note Anesthesia: Postop Eval II Evaluation Mental status: Awake Pain Level: 0 nausea: No Vomiting: No Complications Anesthesia Complication: No
== END 2024-11-24 09:33 | disposition home or self-care (01) ==
LOC: SDC 07:02 → AC 07:07
PROVIDERS: PCP Family Medicine; Referring Provider Urology; Visit Provider Urology
PROC: (CPT 52332; principal; 2024-11-24 08:10)
DX: N13.6 Pyonephrosis (principal); I12.0 Hypertensive chronic kidney disease with stage 5 chronic kidney disease or end stage renal disease; N18.6 End stage renal disease; I25.10 Atherosclerotic heart disease of native coronary artery without angina pectoris; E03.9 Hypothyroidism, unspecified; Z79.899 Other long term (current) drug therapy; Z79.890 Hormone replacement therapy; Z79.82 Long term (current) use of aspirin
CPT/HCPCS: 52332; 00910; 36415; 76000; 80048; 85025; 93005; C1769; C2617; J0744; J2405

== ENCOUNTER → 2025-01-10 | Outpatient (CLI) | payer MEDICARE, SELFPAY ==
--- NOTE | 2025-01-10 13:45 | RAD_ITS ---
PROCEDURE: ABDOMEN SINGLE VIEW 01/10/2025 REASON FOR EXAM: STENTS WITH HEMATURIA TECHNIQUE: ABDOMEN SINGLE VIEW COMPARISON: CT 08/11/2021 FINDINGS: Bilateral ureteral stents, no visible renal stones. In the distal right ureter, there is a 5 mm calcification, versus overlying phleboliths. Prior CT suggests that there were phleboliths in this region. Lumbar spine scoliosis and degeneration. Extensive aortoiliac calcifications. No free air. Nonobstructed bowel-gas gas pattern. Moderate stool. RAD/Abdomen Single View IMPRESSION: Bilateral ureteral stents. No definite renal or ureteral stones. CT could fur ther assess as clinically determined. [facility]
--- NOTE | 2025-01-10 13:45 | RAD_ITS ---
PROCEDURE: ABDOMEN SINGLE VIEW 01/10/2025 REASON FOR EXAM: STENTS WITH HEMATURIA TECHNIQUE: ABDOMEN SINGLE VIEW COMPARISON: CT 08/11/2021 FINDINGS: Bilateral ureteral stents, no visible renal stones. In the distal right ureter, there is a 5 mm calcification, versus overlying phleboliths. Prior CT suggests that there were phleboliths in this region. Lumbar spine scoliosis and degeneration. Extensive aortoiliac calcifications. No free air. Nonobstructed bowel-gas gas pattern. Moderate stool. RAD/Abdomen Single View IMPRESSION: Bilateral ureteral stents. No definite renal or ureteral stones. CT could fur ther assess as clinically determined. Reading [facility]
== END | disposition home or self-care (01) ==
PROVIDERS: PCP Family Medicine; Referring Provider Urology; Visit Provider Urology
DX: N20.0 Calculus of kidney (principal); N39.0 Urinary tract infection, site not specified
CPT/HCPCS: 74018

== ENCOUNTER → 2025-01-31 | Outpatient (CLI) | payer MEDICARE, SELFPAY ==
[2025-01-31 17:53] LABS: Hematocrit 29.9 % (37-47); Hemoglobin 9.7 g/dL (12.0-15.0); Immature Granulocytes Count 0.070 X10^3/uL (0.0-0.0); Mean Corp Hgb Conc 32.4 g/dL (32-36); Mean Corpuscular Volume 109.5 fL (81-99); Mean Platelet Vol. 9.8 fl (6.2-12.0); NRBC Flagged by Analyzer 0 % (0-5); Platelet Count 243 K/mm3 (150-450); RBC Distribution Width CV 14.5 % (11.6-14.6); RBC Distribution Width SD 58.4 fl (35.1-43.9); Red Blood Count 2.73 M/mm3 (4.2-5.4); White Blood Count 10.8 K/mm3 (4.4-11.0)
[2025-01-31 18:14] LABS: Anion Gap 16 (5-15); BUN 22 mg/dL (4-19); BUN/Creat Ratio 7.7 RATIO (10-20); Calcium,Total 8.4 mg/dL (7.6-11.0); Carbon Dioxide 25.9 mmol/L (21.0-32.0); Chloride 97 mmol/L (98-108); Glucose 200 mg/dL (70-99); Potassium 3.9 mmol/L (3.3-5.1)
== END | disposition home or self-care (01) ==
LOC: MTLAB 14:16
PROVIDERS: PCP Family Medicine; Referring Provider Urology; Visit Provider Urology
DX: R30.0 Dysuria (principal)
CPT/HCPCS: 36415; 80048; 85025

== ENCOUNTER → 2025-02-24 | Outpatient (CLI) | payer MEDICARE, SELFPAY ==
[2025-02-24 10:53] LABS: Hematocrit 30.7 % (37-47); Hemoglobin 9.9 g/dL (12.0-15.0); Immature Granulocytes Count 0.060 X10^3/uL (0.0-0.0); Mean Corp Hgb Conc 32.2 g/dL (32-36); Mean Corpuscular Volume 113.3 fL (81-99); Mean Platelet Vol. 9.3 fl (6.2-12.0); NRBC Flagged by Analyzer 0 % (0-5); Platelet Count 286 K/mm3 (150-450); RBC Distribution Width CV 15.3 % (11.6-14.6); RBC Distribution Width SD 64.5 fl (35.1-43.9); Red Blood Count 2.71 M/mm3 (4.2-5.4); White Blood Count 7.8 K/mm3 (4.4-11.0)
[2025-02-24 12:13] LABS: Anion Gap 19 (5-15); BUN 50 mg/dL (4-19); BUN/Creat Ratio 7.5 RATIO (10-20); Calcium,Total 8.3 mg/dL (7.6-11.0); Carbon Dioxide 21.5 mmol/L (21.0-32.0); Chloride 98 mmol/L (98-108); Glucose 123 mg/dL (70-99); Potassium 4.4 mmol/L (3.3-5.1)
== END | disposition home or self-care (01) ==
LOC: MTLAB 09:32
PROVIDERS: PCP Family Medicine; Referring Provider Urology; Visit Provider Urology
DX: R31.0 Gross hematuria (principal)
CPT/HCPCS: 36415; 80048; 85025

== ENCOUNTER 2025-03-02 08:13 | Day surgery (SDC) | payer MEDICARE, SELFPAY ==
--- NOTE | 2025-02-16 20:33 | PAT.ANESEVAL ---
Pre-Assessment Diagnosis/Proposed Procedure Planned Operative Procedure(s): Cystoscopy, bilateral stent change. Anesthesia History Anesthesia History - decision support analyst: Anesthesia History - decision support analyst Hx Hospitalization No 02/16/25 14:51 Any Problems With Anesthesia No 02/16/25 14:51 Cholinesterase deficiency No 02/16/25 14:51 You/Your Family Experience No 02/16/25 14:51 fever (hyperthermia) with Relationship Recent Exposure to Contagious No 11/24/24 07:28 Disease Does patient have nerve No 02/16/25 14:51 stimulator Patient instructed to have device shut off --Does patient have Pacemaker or ICD? When Was Last Pacemaker Check QUESTION #4 FULL TEXT: You/Your Family Experience fever (hyperthermia) with Anesthesia Last Oral Intake Last Oral intake: Last Oral Intake NPO since Meds taken in AM with sips of water? Meds patient instructed to take am of surgery PONV PONV - decision support analyst: PONV - decision support analyst Female Yes 02/16/25 14:51 HX of Motion Sickness No 02/16/25 14:51 HX of N/V After Surgery No 02/16/25 14:51 Non-Smoker Yes 02/16/25 14:51 Duration of Surgery greater Yes 02/16/25 14:51 than 60 minutes Number of Risk Factors 3 02/16/25 14:51 PONV Score Moderate Risk 02/16/25 14:51 Height & Weight Height & Weight: Anesthesia: Height & Weight Height 5 ft 3 in 01/31/25 13:54 Respiratory Assessment Respiratory Assessment - decision support analyst: Respiratory Tract Infection Hx - decision support analyst Hx Respiratory Tract Infection No 02/16/25 14:51 STOP Sleep Apnea STOP Sleep Apnea - decision support analyst: STOP Sleep Apnea - decision support analyst Hx Hypertension Yes: CONTROLLED WITH MEDS 02/16/25 14:51 Hx Sleep Apnea No 02/16/25 14:51 CPAP No 02/16/25 14:51 BIPAP No 02/16/25 14:51 Do you snore loudly (louder No 02/16/25 14:51 than talking or can be heard Do you often feel tired/ Yes 02/16/25 14:51 fatigued/ sleepy during daytime? Has anyone observed you stop No 02/16/25 14:51 breathing during sleep? STOP Results Positive 02/16/25 14:51 QUESTION #5 FULL TEXT : Do you snore loudly (louder than talking or can be heard through closed doors)? Tobacco Use History Tobacco Use History - decision support analyst: Tobacco Use History - decision support analyst Tobacco Use Non-smoker 10/09/20 14:32 Smoking Status Never smoker 02/16/25 14:51 Hx Tobacco Use No 02/16/25 14:51 Years Smoking Packs Smoked per Day Smoking Cessation Date was within the last 15 years Hx Smoking Cessation Date Hx Smoking Cessation Counseling Hematologic Medial History Hematologic Hx - decision support analyst: Hematologic Medical Hx - interior specialist Hx of Blood Transfusion Yes 02/16/25 14:51 Hx of Transfusion in last 3 No 02/16/25 14:51 Months Date of Last Transfusion (if within last 3 months) Ever experience any problems No 02/16/25 14:51 with transfusion(s)? Specify any problems Hx of Preganancy in last 3 No 02/16/25 14:51 Months Nurse Filling Out Transfusion DSCHRIBER 02/16/25 14:51 & Questions: Date: 02/16/25 02/16/25 14:51 Time: 14:51 02/16/25 14:51 Patient unable to answer at this time (ie. confused, unrespo /Reproduction History /Reproductive History - decision support analyst: /Reproductive Hx- decision support analyst Hx Now No 02/16/25 14:51 Gestational Age (in weeks): EDC: Hx Hx Para Hx Section SAB No 02/16/25 14:51 PFSH Medical History (Updated 02/16/25 @ 14:56 by Nancy Pedroza) Heartburn Low iron Difficult intravenous access Cardiology follow-up encounter Pyelonephritis Thyroid disease Ambulates with cane History of renal dialysis Easy bruising Wears glasses Anemia Post-menopausal Osteoarthritis Kidney disease Edema Hematuria Obstructive nephropathy Hyperparathyroidism due to renal insufficiency Vitamin deficiency Hypothyroidism Paroxysmal atrial fibrillation Atherosclerosis of coronary artery of [place] heart without angina pectoris Essential (primary) hypertension Stenosis of left carotid artery Arthritis Normochromic normocytic anemia Acute pyelonephritis Home Medications ?Medication ?Instructions ?Recorded ?Last Taken ?Type aspirin 81 mg chewable tablet 81 mg PO DAILY heart health 05/01/16 11/20/24 History ferrous sulfate 325 mg (65 mg 325 mg PO DAILY supplement 01/11/19 07/13/24 History iron) tablet acetaminophen 650 mg 1,300 mg PO BID pain 04/05/19 07/14/24 History tablet,extended release amiodarone 100 mg tablet 100 mg PO DAILY heart 07/06/20 11/24/24 History ascorbic acid (vitamin C) 500 mg 500 mg PO DAILY supplement 01/08/21 07/13/24 History tablet sucroferric oxyhydroxide 500 mg 500 mg PO BID PHOSPHORUS BINDER 04/29/23 07/13/24 History chewable tablet (Velphoro) levothyroxine 75 mcg tablet 75 mcg PO DAILY 11/17/24 11/24/24 History (Synthroid) metoprolol tartrate 25 mg tablet 25 mg PO BID for blood pressure 01/20/25 Unknown Rx #180 TABLETS estradiol 0.01% (0.1 mg/gram) 1 g vaginal 3XW 3 months #42.5 01/31/25 Unknown Rx vaginal cream grams doxycycline hyclate 100 mg tablet 100 mg PO QHS #90 tabs 02/01/25 Unknown Rx Allergy/AdvReac Type Severity Reaction Status Date / Time cephalexin Allergy TONGUE Verified 01/31/25 13:52 SWELLING AND PEELING LIPS lisinopril Allergy Hives Verified 01/31/25 13:52 Sulfa (Sulfonamide Allergy Hives Verified 01/31/25 13:52 Antibiotics) nitrofurantoin AdvReac Nausea/Vom/ Verified 01/31/25 13:52 Diarrhea Family History Mother CVA (cerebral vascular accident) Hypertension Alcoholism Heart disease Father Heart disease Surgical History (Updated 02/16/25 @ 14:56 by Nancy Pedroza) Hx of cystoscopy Hx of appendectomy Hx of bilateral cataract extraction Hx of cystoscopy Hx of hysterectomy (~2016) history Left brachial AV fistula creation (04/11/19) History of left-sided carotid endarterectomy History of coronary artery stent placement (10/09/08) Hx of cataract surgery History of total abdominal hysterectomy and bilateral salpingo-oophorectomy History of ureter stent Social History Smoking Status: Never smoker alcohol intake: never substance use type: does not use Audit: Pertinent Findings Pertinent Findings EKG Perinent findings: 11/21/2024. Sinus rhythm with first-degree AV block. Minimal voltage criteria for LVH. Consult pertinent findings: April 09, 2022. Dr. Cason. 1. Status post coronary artery stent placement?resolved?this was a BMS to the mid LAD in October of 2008. 2. Paroxysmal atrial fibrillation-currently maintaining sinus rhythm. Continue amiodarone. 3. Hypertension?controlled Recommendation Anesthesia Recommendation Anesthesia recommendation: OPTIMIZED for anesthesia (Patient has had this same surgery done multiple times and has done well. Patient is cleared for this surgery only. Last cardiology consult from 2021 recommends a stress and echo which were never done.)
[2025-03-02] VITALS (10 sets, daily range): BP systolic 77–125; BP diastolic 39–64; PULSE 55–63; RESP 16; TEMP 36.1–36.6; O2SAT 92–100; BMI 20.5
[2025-03-02] MEDS: 0.9% Normal Saline (500mL Bag) 500 ML 15 ML IV (08:49)
--- NOTE | 2025-03-02 09:03 | PRE.ANES_ITS ---
ASA Classification* ASA Classification ASA Classification: 4 Assessment & Plan Anesthesia* Anesthesia Assessment Anesthesia Assessment: Discussed sedation and/or anesthesia options, risks, benefits, and alternatives with patient/parents/legal guardian/POA. Questions invited. The patient/parents/legal guardian/POA seems to understand and agrees to proceed with anesthesia plan. Reviewed the physical assessment, medical history, allergy history and patient home medications list prior to surgery/procedure/anesthetic and documented any changes. Performed airway and anesthesia risk assessments. Anesthesia Type Anesthesia Type: General (back up) and MAC (patient last dialysis on Thursday and uneventful, consent for MAC with GA back up. Only receives dialysis 2 X week THU and THU) History Source History Obtained from:: Patient and Chart Anesthesia Focused Assessment* Temperature: 97 F Pulse Rate: 63 Blood Pressure: 125/53 Respiratory Rate: 16 Pulse Ox: 95 Oxygen Delivery Method: Room Air Airway Assessment Mouth opens: >3 cm Mallampati Score: II Teeth Condition: Intact (intact upper teeth missing many lower teeth and poor dentition of reamining lower teeth nothing loose) Neck Range of motion (ROM): Limited ROM Labs Anesthesia Preop lab: CBC WBC, (4.4-11.0) 7.8 K/mm3 02/24/25, 09:36 RBC, (4.2-5.4) 2.71 M/mm3 L 02/24/25, 09:36 Hgb, (12.0-15.0) 9.9 g/dL L 02/24/25, 09:36 Hct, (37-47) 30.7 % L 02/24/25, 09:36 Plt Count, (150-450) 286 K/mm3 02/24/25, 09:36 CHEMISTRY Potassium, (3.3-5.1) 4.4 mmol/L 02/24/25, 09:36 Sodium, (133-145) 138 mmol/L 02/24/25, 09:36 Magnesium, (1.6-2.6) 1.4 mg/dL L 07/11/20, 06:06 Phosphorus, (2.5-4.9) 3.5 mg/dL 07/31/22, 11:30 BUN, (4-19) 50 mg/dL H 02/24/25, 09:36 Creatinine, (0.70-1.20) 6.68 mg/dL H 02/24/25, 09:36 Glucose, (70-99) 123 mg/dL H 02/24/25, 09:36 POC Glucose, (70-110) 139 mg/dL H 01/23/17, 20:52 TSH, (0.358-3.74) 1.74 uIU/mL 08/12/21, 05:38 COAG PT, (11.7-14.9) 15.7 SECONDS H 08/12/21, 05:38 Pre-Assessment Diagnosis/Proposed Procedure Planned Operative Procedure(s): Cystoscopy, bilateral stent change. Anesthesia History Anesthesia History - chief telephone operator: Anesthesia History - chief telephone operator Hx Hospitalization No 02/16/25 14:51 Any Problems With Anesthesia No 02/16/25 14:51 Cholinesterase deficiency No 02/16/25 14:51 You/Your Family Experience No 02/16/25 14:51 fever (hyperthermia) with Relationship Recent Exposure to Contagious No 03/02/25 08:37 Disease Does patient have nerve No 02/16/25 14:51 stimulator Patient instructed to have device shut off --Does patient have Pacemaker No 03/02/25 08:37 or ICD? When Was Last Pacemaker Check QUESTION #4 FULL TEXT: You/Your Family Experience fever (hyperthermia) with Anesthesia Any additional information?: No Last Oral Intake Last Oral intake: Last Oral Intake NPO since 20:00 03/02/25 08:37 Meds taken in AM with sips of Yes 03/02/25 08:37 water? Meds patient instructed to amiodarone, metoprolol, 03/02/25 08:37 take am of surgery levothyroxine Any additional information?: Yes NPO since: 07:15 Meds taken in AM with sips of water?: Yes Meds patient instructed to take am of surgery: amiodarone, metoprolol, levothyroxine PONV PONV - chief telephone operator: PONV - chief telephone operator Female Yes 02/16/25 14:51 HX of Motion Sickness No 02/16/25 14:51 HX of N/V After Surgery No 02/16/25 14:51 Non-Smoker Yes 02/16/25 14:51 Duration of Surgery greater Yes 02/16/25 14:51 than 60 minutes Number of Risk Factors 3 02/16/25 14:51 PONV Score Moderate Risk 02/16/25 14:51 Any additional information?: No Height & Weight Height & Weight: Anesthesia: Height & Weight Height 5 ft 3 in 03/02/25 08:37 Weight: 52.5 kg 03/02/25 08:37 Body Mass Index (BMI) 20.5 03/02/25 08:37 Respiratory Assessment Respiratory Assessment - chief telephone operator: Respiratory Tract Infection Hx - chief telephone operator Hx Respiratory Tract Infection No 02/16/25 14:51 Any additional information?: No STOP Sleep Apnea STOP Sleep Apnea - chief telephone operator: STOP Sleep Apnea - chief telephone operator Hx Hypertension Yes: CONTROLLED WITH MEDS 02/16/25 14:51 Hx Sleep Apnea No 02/16/25 14:51 CPAP No 02/16/25 14:51 BIPAP No 02/16/25 14:51 Do you snore loudly (louder No 02/16/25 14:51 than talking or can be heard Do you often feel tired/ Yes 02/16/25 14:51 fatigued/ sleepy during daytime? Has anyone observed you stop No 02/16/25 14:51 breathing during sleep? STOP Results Positive 02/16/25 14:51 QUESTION #5 FULL TEXT : Do you snore loudly (louder than talking or can be heard through closed doors)? Any additional information?: No Tobacco Use History Tobacco Use History - chief telephone operator: Tobacco Use History - chief telephone operator Tobacco Use Non-smoker 10/09/20 14:32 Smoking Status Never smoker 02/16/25 14:51 Hx Tobacco Use No 02/16/25 14:51 Years Smoking Packs Smoked per Day Smoking Cessation Date was within the last 15 years Hx Smoking Cessation Date Hx Smoking Cessation Counseling Any additional information?: No Hematologic Medial History Hematologic Hx - chief telephone operator: Hematologic Medical Hx - optometrist Hx of Blood Transfusion Yes 02/16/25 14:51 Hx of Transfusion in last 3 No 02/16/25 14:51 Months Date of Last Transfusion (if within last 3 months) Ever experience any problems No 02/16/25 14:51 with transfusion(s)? Specify any problems Hx of Preganancy in last 3 No 02/16/25 14:51 Months Nurse Filling Out Transfusion DSCHRIBER 02/16/25 14:51 & Questions: Date: 02/16/25 02/16/25 14:51 Time: 14:51 02/16/25 14:51 Patient unable to answer at this time (ie. confused, unrespo Any additional information?: No /Reproduction History /Reproductive History - chief telephone operator: /Reproductive Hx- chief telephone operator Hx Now No 02/16/25 14:51 Gestational Age (in weeks): EDC: Hx Hx Para Hx Section SAB No 02/16/25 14:51 Any additional information?: No Active Medications Active Medications: Current Medications Generic Name Dose Route Start Last Admin Trade Name Freq PRN Reason Stop Dose Admin Ciprofloxacin 200 mg in 100 mls @ 100 mls/hr 03/02/25 09:40 Cipro IV 03/02/25 10:39 PREOP ONE Sodium Chloride 500 mls @ 0 mls/hr 03/02/25 08:30 03/02/25 08:49 IV 15 mls/hr .Q0M SRIRAM Administration KVO PFSH Medical History Heartburn Low iron Difficult intravenous access Cardiology follow-up encounter Pyelonephritis Thyroid disease Ambulates with cane History of renal dialysis Easy bruising Wears glasses Anemia Post-menopausal Osteoarthritis Kidney disease Edema Hematuria Obstructive nephropathy Hyperparathyroidism due to renal insufficiency Vitamin deficiency Hypothyroidism Paroxysmal atrial fibrillation Atherosclerosis of coronary artery of [place] heart without angina pectoris Essential (primary) hypertension Stenosis of left carotid artery Arthritis Normochromic normocytic anemia Acute pyelonephritis Home Medications ?Medication ?Instructions ?Recorded ?Last Taken ?Type aspirin 81 mg chewable tablet 81 mg PO DAILY heart hea lth 05/01/16 02/27/25 History ferrous sulfate 325 mg (65 mg 325 mg PO DAILY suppleme nt 01/11/19 07/13/24 History iron) tablet acetaminophen 650 mg 1,300 mg PO BID pain 9 07/14/24 History tablet,extended release amiodarone 100 mg tablet 100 mg PO DAILY heart 03/02/25 History ascorbic acid (vitamin C) 500 mg 500 mg PO DAILY suppl ement 01/08/21 07/13/24 History tablet sucroferric oxyhydroxide 500 mg 500 mg PO BID PHOSPHOR US BINDER 04/29/23 07/13/24 History chewable tablet (Velphoro) levothyroxine 75 mcg tablet 75 mcg PO DAILY 11/17/24 0 03/02/25 07:15 History (Synthroid) metoprolol tartrate 25 mg tablet 25 mg PO BID for bloo d pressure 01/20/25 03/02/25 07:15 Rx #180 TABLETS estradiol 0.01% (0.1 mg/gram) 1 g vaginal 3XW 3 months #42.5 01/31/25 Unknown Rx vaginal cream grams doxycycline hyclate 100 mg tablet 100 mg PO QHS #90 ta bs 02/01/25 Unknown Rx Allergy/AdvReac Type Severity Reaction Status Date / Time cephalexin Allergy TONGUE Verified 03/02/25 08:34 SWELLING AND PEELING LIPS lisinopril Allergy Hives Verified 03/02/25 08:34 Sulfa (Sulfonamide Allergy Hives Verified 03/02/25 08:34 Antibiotics) nitrofurantoin AdvReac Nausea/Vom/ Verified 03/02/25 08:34 Diarrhea Family History Mother CVA (cerebral vascular accident) Hypertension Alcoholism Heart disease Father Heart disease Surgical History Hx of cystoscopy Hx of appendectomy Hx of bilateral cataract extraction Hx of cystoscopy Hx of hysterectomy (~2016) history Left brachial AV fistula creation (04/11/19) History of left-sided carotid endarterectomy History of coronary artery stent placement (10/09/08) Hx of cataract surgery History of total abdominal hysterectomy and bilateral salpingo-oophorectomy History of ureter stent Social History Smoking Status: Never smoker alcohol intake: never substance use type: does not use Addt'l Information Additional Findings: will see [facility] in March and is seen every year Review of Systems (Anesthesia) ROS Narrative System reviewed and no additional complaints, except as documented.
--- NOTE | 2025-03-02 10:07 | DCINST_ITS ---
Discharge Instructions Diet Discharge Diet: No restrictions Activity Discharge Activity: Return to Normal Activity Dressing / Incision Call your doctor if your incision/area has: Continuous Slow Oozing and Sudden Increased Bleeding Call your doctor if you observe: Fever of 101 or Higher, Inability to urinate and Inability to have a bowel movement Follow Up Care Test Results: Test results from this visit will be discussed in further detail at your follow- up appointment, if applicable. Discharge Plan Admission Attending Provider: Melissa Rivas Primary Care Provider: Brett Flores Instructions Print Language: [place]an Discharge Orders/Prescriptions Prescriptions: Continued estradiol 0.01 % (0.1 mg/gram) cream 1 g vaginal 3XW 90 Days Qty: 42.5 3RF aspirin 81 MG tablet,chewable 81 mg PO DAILY ferrous sulfate 325 MG tablet 325 mg PO DAILY acetaminophen 650 MG tablet extended release 1,300 mg PO BID amiodarone 100 MG tablet 100 mg PO DAILY ascorbic acid (vitamin C) 500 mg Tablet 500 mg PO DAILY Velphoro 500 mg tablet,chewable 500 mg PO BID levothyroxine [Synthroid] 75 mcg tablet 75 mcg PO DAILY metoprolol tartrate 25 mg tablet 25 mg PO BID Qty: 180 0RF doxycycline hyclate 100 mg tablet 100 mg PO QHS Qty: 90 0RF Referrals / Follow Up: Brett Flores DO [Primary Care Provider, Family Practice] Disposition Disposition (needs filled in before D/C Order can be placed): Home, Self Care
--- NOTE | 2025-03-02 10:07 | PCM.HP.BLA ---
History and Physical Date of Admission: 03/02/25 Date of Service: 02/22/25 MR#: [id number] Acct: [id number] Name: ERNESTO KATZ Rep #: [id number] : 1940 Provider: Dr. Melissa Rivas MD Age/Sex: 84/F [place] [facility] [place] Status: Signed Intake Vital Signs 11/24/2506:28 01/31/2513:54 02/22/2511:30 Height 5 ft 3 in 5 ft 3 in 5 ft 3 in Weight: 114 lb BMI 20.2 BP 134/75 H Pulse 61 Intake Visit Reasons: Pre-op visit Chief Complaint: preoperation visit Contracting Support Specialist Required: No Accompanied by: self Is patient in pain?: No Allergies cephalexin Allergy (Verified 02/22/25 11:25) TONGUE SWELLING AND PEELING LIPS lisinopril Allergy (Verified 02/22/25 11:25) Hives Sulfa (Sulfonamide Antibiotics) Allergy (Verified 02/22/25 11:25) Hives nitrofurantoin Adverse Reaction (Verified 02/22/25 11:25) Nausea/Vom/Diarrhea Medications ?Medication ?Instructions ?Recorded ?Confirmed ?Type aspirin 81 mg chewable tablet 81 mg PO DAILY heart health 05/01/16 02/22/25 History ferrous sulfate 325 mg (65 mg 325 mg PO DAILY supplement 01/11/19 02/22/25 History iron) tablet acetaminophen 650 mg 1,300 mg PO BID pain 04/05/19 02/22/25 History tablet,extended release amiodarone 100 mg tablet 100 mg PO DAILY heart 07/06/20 02/22/25 History ascorbic acid (vitamin C) 500 mg 500 mg PO DAILY supplement 01/08/21 02/22/25 History tablet sucroferric oxyhydroxide 500 mg 500 mg PO BID PHOSPHORUS BINDER 04/29/23 02/22/25 History chewable tablet (Velphoro) levothyroxine 75 mcg tablet 75 mcg PO DAILY 11/17/24 02/22/25 History (Synthroid) metoprolol tartrate 25 mg tablet 25 mg PO BID for blood pressure 01/20/25 02/22/25 Rx #180 TABLETS estradiol 0.01% (0.1 mg/gram) 1 g vaginal 3XW 3 months #42.5 01/31/25 02/22/25 Rx vaginal cream grams doxycycline hyclate 100 mg tablet 100 mg PO QHS #90 tabs 02/01/25 02/22/25 Rx Have you fallen in the past year?: Yes (fell a month and a half ago passed out at dialysis) [facility] Medical History Heartburn Low iron Difficult intravenous access Cardiology follow-up encounter Pyelonephritis Thyroid disease Ambulates with cane History of renal dialysis Easy bruising Wears glasses Anemia Post-menopausal Osteoarthritis Kidney disease Edema Hematuria Obstructive nephropathy Hyperparathyroidism due to renal insufficiency Vitamin deficiency Hypothyroidism Paroxysmal atrial fibrillation Atherosclerosis of coronary artery of [place] heart without angina pectoris Essential (primary) hypertension Stenosis of left carotid artery Arthritis Normochromic normocytic anemia Acute pyelonephritis Surgical History Hx of cystoscopy Hx of appendectomy Hx of bilateral cataract extraction Hx of cystoscopy Hx of hysterectomy (~2016) history Left brachial AV fistula creation (04/11/19) History of left-sided carotid endarterectomy History of coronary artery stent placement (10/09/08) Hx of cataract surgery History of total abdominal hysterectomy and bilateral salpingo-oophorectomy History of ureter stent Family History Mother CVA (cerebral vascular accident) Hypertension Alcoholism Heart disease Father Heart disease Social History Smoking Status: Never smoker alcohol intake: never substance use type: does not use HPI HPI Urology Chief Complaint: preoperation visit Details: ERNESTO KATZ, is a 84 F. The patient is here for preoperative history and physical prior to cystoscopy with bilateral ureteral stent change, possible bladder biopsy and fulguration. There are no new symptoms since the last visit. She is still having daily hematuria. The procedure, recovery and expectations were explained. The risks, benefits and alternatives were discussed, including but not limited to, the risks of anesthesia, bleeding, infection, injury, pain and the need for further intervention. We have discussed the risk of exposure to and/or potential harm posed by the COVID-19 virus with having a surgery/procedure at this time. A joint decision was made at this time to proceed with the scheduled surgery/procedure as indicated on the consent form. ROS Const Constitutional: No chills, fatigue, fever(s), headache(s), night sweats, weakness, weight change, abnormal sleep pattern or change in appetite Eyes Eyes: No change in vision ENT ENT: No headache(s) or dry mouth Resp Respiratory: No cough, chest congestion, shortness of breath or wheezing Cardio Cardiology: Positive for other (No chest pain.); No shortness of breath, irregular heart rhythm or lightheadedness Gastro GI: Positive for other (No nausea.); No abdominal pain, change in bowel habits, constipation, diarrhea or vomiting Musc Musculoskeletal: No abnormal gait Skin Skin: No yellowing of the eye, lesions, itchy eyes, rash or skin ulcer Neuro Neurology: No abnormal gait, confusion, dizziness, weakness, headache(s) or memory loss Psych Psychiatric: No abnormal sleep pattern, No change in appetite, No confusion and No memory loss Endo Endocrine: No fatigue, increased thirst/drinking or weight change Aller/Imm Allergy/Immunologic: No itchy eyes or wheezing Owen/Lymp Hematologic/Lymphatic: No easy bleeding, easy bruising or enlarged lymph nodes Exam Const General: cooperative, healthy appearing, comfortable and no acute distress [facility] Head: normocephalic and atraumatic Ears: hearing grossly normal bilaterally and external ears normal Nose: external nose normal Eyes General: appearance normal, both eyes and all related structures Neck Neck: normal visual inspection and trachea midline Chest Chest palpation & inspection: normal inspection of the chest Resp Effort & Inspection: normal respiratory effort, able to speak in complete sentences and symmetric chest movement Cardio Rate: regular rate GI Inspection: normal to inspection Palpation: soft and nontender General: No CVA tenderness Skin General: no rashes or lesions noted Neuro General: patient alert, patient awake, patient oriented x3 and CN's II-XI intact bilaterally Extrem General: normal to inspection Psych Appearance: grossly normal and well kempt Mental Status: mental status grossly normal Results POC Urinalysis w/Micro Office Urine Color ? Last Edit by Peggy Ni on 02/22/25 11:32 Office Urine Clarity ? Last Edit by Peggy Ni on 02/22/25 11:32 Office Urine Glucose Negative Last Edit by Peggy Ni on 02/22/25 11:32 Office Urine Ketones Trace (5) Last Edit by Peggy Ni on 02/22/25 11:32 Office Urine Bilirubin Small (1+) Last Edit by Peggy Ni on 02/22/25 11:32 Office Urine Urobilinogen 1 mg/dL Last Edit by Peggy Ni on 02/22/25 11:32 Off Ur Spec [place] 1.015 Last Edit by Peggy Ni on 02/22/25 11:32 Office Urine pH 7 Last Edit by Peggy Ni on 02/22/25 11:32 Office Urine Protein 3+ Last Edit by Peggy Ni on 02/22/25 11:32 Office Urine Blood Large Last Edit by Peggy Ni on 02/22/25 11:32 Office Urine Blood Hemolyzed Large Last Edit by Peggy Ni on 02/22/25 11:32 Office Urine Nitrate Positive Last Edit by Peggy Ni on 02/22/25 11:32 Off Ur Leukocytes Positive Last Edit by Peggy Ni on 02/22/25 11:32 Off Ur WBC Microscopic ? Last Edit by Peggy Ni on 02/22/25 11:32 Off Ur RBC Microscopic ? Last Edit by Peggy iN on 02/22/25 11:32 Off Ur Bacteria Microscopic ? Last Edit by Peggy Ni on 02/22/25 11:32 leuks 500 Coding Level of Care Code Off vis,new,level 4 Diagnoses Gross hematuria R31.0 Bilateral ureteral obstruction N13.5 Urinary tract infection N39.0 Vaginal atrophy N95.2 Chronic kidney disease, stage 5 N18.5 Assessment and Plan Assessment and Plan (1) Gross hematuria: Status: Acute (2) Bilateral ureteral obstruction: Status: Acute (3) Urinary tract infection: Status: Acute (4) Vaginal atrophy: Status: Acute (5) Chronic kidney disease, stage 5: Status: Chronic Orders: Orders POC UA Automated w/Microscopy 02/22/25 R31.0 - Gross hematuria Basic Metabolic Profile (BMP) 02/22/25 R31.0 - Gross hematuria CBC W/Diff, Automated 02/22/25 R31.0 - Gross hematuria 12 Lead [place] [facility] [place]22[place] N13.5 - Crossing vessel and stricture of ureter without hydronephrosis, R31.0 - Gross hematuria Plan urine culture today, treatment pending results proceed with intervention as scheduled CBC, BMP, EKG Clinical Quality Measures Falls Risk Screening/Assistive Devices Have you fallen in the past year?: Yes (fell a month and a half ago passed out at dialysis) 02/23/25 [id number] <Electronically signed by Melissa Rivas MD> Date Melissa Rivas MD
--- NOTE | 2025-03-02 10:08 | PCM.OPRPT ---
Operative Report (Standard) Operative Information Date of Procedure: 03/02/25 Pre-Operative Diagnosis: Bilateral ureteral obstruction, hematuria Post-Operative Diagnosis: Same Surgery/Procedure Performed: Cystoscopy with bilateral ureteral stent change director of assessing: No Type of Anesthesia: MAC RN Documented Start/Stop Times: Operation Date: 03/02/25 09:40 Case Time Into Pre-Op 03/02/25 08:16 Out of Pre-Op 03/02/25 10:18 Anesthesia Start 03/02/25 10:24 Into Room 03/02/25 10:24 Procedure Start 03/02/25 10:36 Procedure End 03/02/25 10:50 Anesthesia End 03/02/25 10:54 Out of Room 03/02/25 10:54 Procedure Start Time: 10:36 Procedure Stop Time: 10:50 Select all DRAINS/GRAFTS/IMPLANTS that apply: Drains Drain details: 6 Azeri by 24 JJ stent x 2 Estimated Blood Loss: <5cc Specimen collected: No Description of surgery: The patient is an 84-year-old female who presents for her routine bilateral ureteral stent change. She has been having gross hematuria daily since the last stent change. She was taken to the operating room and placed on the operating room table. Anesthesia monitored the head, neck, airway, IV access and vital signs throughout the case. Once anesthesia was appropriate administered, she was placed into dorsolithotomy position was prepped and draped in usual sterile fashion. The cystoscope was inserted through the urethra under direct visualization into the urinary bladder. The bladder was drained. No bleeding was identified. And pulled to the urethral meatus where it was backloaded with a 0.035 Glidewire. Starting on the patient's left side, the stent was grasped with grasping forceps as seen on fluoroscopy, the wire was within the renal pelvis. Following removal of the stent, a new 1 was placed over the wire with good positioning in the renal pelvises and urinary bladder. This process was exactly repeated on the patient's right side. There are no issues. There is no active bleeding, mass, ulceration and the decision was made to leave it proceed without intervention for this. The cystoscope was removed. The patient was awakened and taken to the recovery room in good condition. There were no complications during this procedure. Surgical Findings: 6 x 24 JJ stent x 2, plan to decrease to 6 Azeri by 22 cm JJ stent at the next stent change. No source of hematuria identified today. Complications Complications: No Admit VTE Documentation VTE Present on Admission: Yes VTE Mechan Device Prophylaxis: SCD's VTE Pharm Prophylaxis ordered?: No Reason prophylaxis not ordered: Treatment Not Indicated
[2025-03-02] MEDS: 0.9% Normal Saline (1000mL) 200 ML IV (10:31)
[2025-03-02] MEDS: Lidocaine 1% (5 ml sdv) 5 ML Vial IV (10:31)
[2025-03-02] MEDS: fentaNYL 100 MCG/2 ML Ampul 50 MCG IV (10:47)
--- NOTE | 2025-03-02 10:54 | PCM.POST.ANE ---
Anesthesia: Postop Eval I Current Vital Signs Temperature: 97 F Pulse Rate: 55 Blood Pressure: 117/64 Respiratory Rate: 16 Pulse Ox: 100 Oxygen Delivery Method: Room Air Assessment Airway patent: Yes Spontaneous unlabored respirations: Yes Mental status: Awake and Calm nausea: No Vomiting: No Anesthesia Complication: No Fluid Hydration Crystalloid volume administer (ml): 200 Total IV fluid infused: 200 Progress Note Anesthesia document: Postop Eval 1 completed: Yes
--- NOTE | 2025-03-02 14:29 | POSTOPAN2_ITS ---
Anesthesia Postop Eval I Sum Postop Eval Completion status Anesthesia document: Postop Eval 1 completed: Yes Anesthesia Postop Eval I Summary Anesthesia Postop Eval I Summary: Anesthesia Postop Eval I: Assessment Summary Airway patent Yes 03/02/25 10:54 CONTRACTOR [email or web address] Spontaneous unlabored Yes 03/02/25 10:54 CONTRACTOR [email or web address] respirations Mental status Awake,Calm 03/02/25 10:54 CONTRACTOR [email or web address] nausea No 03/02/25 10:54 CONTRACTOR [email or web address] Vomiting No 03/02/25 10:54 CONTRACTOR [email or web address] Anesthesia Postop Eval I: Fluid Summary Crystalloid volume administer 200 03/02/25 10:54 CONTRACTOR BUYER.MDOT (ml) Colloids volume administered ( ml) Blood Product volume administered (ml) Total IV fluid infused 200 03/02/25 10:54 CONTRACTOR [email or web address] Anesthesia Postop Eval I: Summary Notes Anesthesia Complication No 03/02/25 10:54 CONTRACTOR [email or web address] Anesthesia Complication Comment: Post-operative progress note Anesthesia: Postop Eval II Evaluation Mental status: Awake and Calm Pain Level: 0 nausea: No Vomiting: No Complications Anesthesia Complication: No
--- NOTE | 2025-03-02 14:29 | PCM.POSTANE2 ---
Anesthesia Postop Eval I Sum Postop Eval Completion status Anesthesia document: Postop Eval 1 completed: Yes Anesthesia Postop Eval I Summary Anesthesia Postop Eval I Summary: Anesthesia Postop Eval I: Assessment Summary Airway patent Yes 03/02/25 10:54 CLINICAL SERVICES SPECIALIST.MDOT Spontaneous unlabored Yes 03/02/25 10:54 CLINICAL SERVICES SPECIALIST.MDOT respirations Mental status Awake,Calm 03/02/25 10:54 CLINICAL SERVICES SPECIALIST.MDOT nausea No 03/02/25 10:54 CLINICAL SERVICES SPECIALIST.MDOT Vomiting No 03/02/25 10:54 CLINICAL SERVICES SPECIALIST.MDOT Anesthesia Postop Eval I: Fluid Summary Crystalloid volume administer 200 03/02/25 10:54 CLINICAL SERVICES SPECIALIST.MDOT (ml) Colloids volume administered ( ml) Blood Product volume administered (ml) Total IV fluid infused 200 03/02/25 10:54 CLINICAL SERVICES SPECIALIST.MDOT Anesthesia Postop Eval I: Summary Notes Anesthesia Complication No 03/02/25 10:54 CLINICAL SERVICES SPECIALIST.MDOT Anesthesia Complication Comment: Post-operative progress note Anesthesia: Postop Eval II Evaluation Mental status: Awake and Calm Pain Level: 0 nausea: No Vomiting: No Complications Anesthesia Complication: No
== END 2025-03-02 12:01 | disposition home or self-care (01) ==
LOC: SDC 08:14 → AC 08:15
PROVIDERS: PCP Family Medicine; Referring Provider Urology; Visit Provider Urology
PROC: (CPT 52332; principal; 2025-03-02 09:30)
DX: N13.6 Pyonephrosis (principal); I12.0 Hypertensive chronic kidney disease with stage 5 chronic kidney disease or end stage renal disease; N18.5 Chronic kidney disease, stage 5; R31.0 Gross hematuria; I25.10 Atherosclerotic heart disease of native coronary artery without angina pectoris; Z79.82 Long term (current) use of aspirin; Z79.899 Other long term (current) drug therapy; Z79.890 Hormone replacement therapy; E03.9 Hypothyroidism, unspecified; N95.2 Postmenopausal atrophic vaginitis; Z99.2 Dependence on renal dialysis
CPT/HCPCS: 52332; 00910; 76000; C1769; C2617; J0744; J2405

== ENCOUNTER 2025-05-25 09:47 | Outpatient (CLI) | payer MEDICARE, SELFPAY ==
--- NOTE | 2025-05-25 09:51 | ECHOD_ITS ---
Reason For Study Reason For Study: ATRIAL FIB-FLUTTER Procedure This was a 2D Doppler, Color Flow transthoracic echocardiogram. Exam performed in department. Left Ventricle Normal LV size. The left ventricular ejection fraction is 55 %. No regional wall motion abnormalities noted. Right Ventricle Normal RV size. Normal systolic function. Atria The left atrium is mildly enlarged. Normal right atrium. Mitral Valve Moderate focal mitral valve calcification of the posterior leaflet. There is mild mitral annular calcification. Mild- Moderate (1-2+) eccentric mitral valve insufficiency. Tricuspid Valve Normal tricuspid valve. Mild-Moderate (1-2+) tricuspid valve insufficiency. Pulmonary artery systolic pressure is 50 mmHg. Aortic Valve Trisinus/trileaflet aortic valve. Mild focal aortic valve calcification. Peak aortic valve gradient 47 mmHg. Mean aortic valve gradient 24 mmHg. Moderate aortic stenosis. Pulmonic Valve Normal pulmonic valve. Great Vessels Normal aortic root. The pulmonary artery is normal size. Inferior vena cava collapse with respiration. Pericardium/Pleural No pericardial effusion. MMode/2D Measurements & Calculations LVIDd: 5.3 cm IVSd: 0.82 cm LVOT diam: 2.0 cm LVIDs: 3.6 cm LVPWd: 0.78 cm LVOT area: 3.0 cm2 RVDd: 3.4 cm FS: 30.8 % Ao root diam: 3.2 cm LAV(MOD-bp): 80.1 ml LVAd ap4: 32.4 cm2 LAV(MOD-bp) Indexed: 52.6 ml/m2 LVLd ap4: 8.2 cm LAV(MOD-sp2): 83.8 ml EDV(MOD-sp4): 104.6 ml LAV(MOD-sp4): 68.2 ml EDV(sp4-el): 108.7 ml LVAs ap4: 20.0 cm2 LVLs ap4: 6.8 cm ESV(MOD-sp4): 49.4 ml ESV(sp4-el): 49.8 ml EF(MOD-sp4): 52.7 % EF(sp4-el): 54.2 % LVAd ap2: 38.3 cm2 SV(MOD-sp4): 55.2 ml LVLd ap2: 8.4 cm EDV(MOD-bp): 123.9 ml SI(MOD-sp4): 36.2 ml/m2 EDV(MOD-sp2): 149.9 ml ESV(MOD-bp): 59.6 ml EDV(sp2-el): 148.8 ml EF(MOD-bp): 51.9 % LVAs ap2: 23.8 cm2 LVLs ap2: 6.8 cm ESV(MOD-sp2): 71.7 ml ESV(sp2-el): 70.3 ml EF(MOD-sp2): 52.2 % SV(MOD-sp2): 78.2 ml SV(sp4-el): 58.9 ml LA A4 area: 22.7 cm2 SI(MOD-sp2): 51.4 ml/m2 LA dimension(2D): 3.8 cm RA A4 area: 14.7 cm2 TAPSE: 2.4 cm Time Measurements MV dec time: 0.19 sec Doppler Measurements & Calculations MV E max martínez: 126.6 cm/sec Lat Peak E' Martínez: 7.1 cm/sec Med Peak E' Martínez: 5.1 cm/sec MV A max martínez: 76.0 cm/sec E/E' lat: 17.8 E/E' med: 24.8 MV E/A: 1.7 Ao V2 max: 342.4 cm/sec LV V1 max: 108.7 cm/sec MV dec slope: 649.7 cm/sec2 Ao max P.9 mmHg LV V1 max P.7 mmHg Ao V2 mean: 229.7 cm/sec LV V1 mean P.0 mmHg Ao mean P.8 mmHg LV V1 mean: 83.7 cm/sec Ao V2 VTI: 92.7 cm LV V1 VTI: 29.0 cm AV (velocity ratio): 0.31 HOMERO(I,D): 0.94 cm2 HOMERO(V,D): 0.95 cm2 SV(LVOT): 86.9 ml PA V2 max: 91.5 cm/sec TR max martínez: 343.5 cm/sec TR max P.2 mmHg ECHO/Echo Complete Interpretation Summary Normal LV size. The left ventricular ejection fraction is 55 %. There is mild mitral annular calcification. Mild-Moderate (1-2+) eccentric mitral valve insufficiency. The left atrium is mildly enlarged. Ordering Physician: Shan Cason Referring Physician: Brett Flores Performed By: Breanna Bello RDCS
== END 2025-05-25 23:59 | disposition home or self-care (01) ==
PROVIDERS: PCP Family Medicine; Referring Provider Internal Medicine Cardiovascular Disease; Visit Provider Internal Medicine Cardiovascular Disease
DX: I48.0 Paroxysmal atrial fibrillation (principal)
CPT/HCPCS: 93306; 94060; 94726; 94729